=== PATIENT | male | born 1955 | race Caucasian/White ===

== ENCOUNTER 2016-09-18 19:17 | Inpatient (IN) ==
[2016-09-18] MEDS ORDERED: *HR* OxyCODONE/APAP 5/325 TABLET PO ONE ×3 (19:26→22:43)
--- NOTE | 2016-09-18 19:30 | Emergency Department Note ---
Disposition Clinical Impression: Fall (on) (from) other stairs and steps, initial encounter Tibia fracture Qualifiers: Encounter type: initial encounter Tibia location: shaft Fracture type: closed Fracture morphology: comminuted Fracture alignment: displaced Laterality: right Qualified Code(s): S82.251A - Displaced comminuted fracture of shaft of right tibia, initial encounter for closed fracture Closed fibular fracture Qualifiers: Encounter type: initial encounter Fibula location: proximal Fracture morphology : other fracture Laterality: right Qualified Code(s): S82.831A - Other fracture of upper and lower end of right fibula, initial encounter for closed fracture Disposition: Admitted As Inpatient Condition: Fair Time of Disposition: 21:02 Fall HPI - General Chief Complaint: ED Extremity Injury, Lower Stated Complaint: fell out of wheelchair Time Seen by Provider: 09/18/16 19:23 Source: EMS Nursing Notes Reviewed: Yes Vital Signs Reviewed: Yes - History of Present Illness HPI Narrative: Patient's 61-year-old male who presents to the ED secondary to fall 45 minutes ago. Patient states he rolled forward in his wheelchair fell out and hit his right proximal herrera on a step. Patient denies any head injury or injury anywhere else any loss of consciousness. Patient is brought in by EMS. Patient admits to allergies aspirin and Sudafed. Patient denies any anticoagulant use. Patient admits to history of diabetes and hypertension. Patient states pain right lower extremity 9 out of 10 and Constant. Patient has history of CVA 2 during surgery years ago which patient comatose for several months and suffered severe atrophy of bilateral lower extremities. Patient spends most this time bedbound and wheelchair. Patient is actively working with rehabilitation to gain use of legs. Currently able to ambulate with a walker to some degree with assistance. - Related Data Home Medications Medication Instructions Recorded Confirmed Ferrous Sulfate 325 mg PO BID 10/09/14 09/18/16 Omeprazole [PriLOSEC] 40 mg PO QAM 10/09/14 09/18/16 Simvastatin [Zocor] 40 mg PO QPM 10/09/14 09/18/16 Sucralfate [Carafate] 1 gm PO QID 10/09/14 09/18/16 Thiamine (B-1) [Vitamin B-1] 100 mg PO QAM 10/09/14 09/18/16 Zinc Sulfate 220 mg PO QAM 10/09/14 09/18/16 DULoxetine [Cymbalta] 20 mg PO DAILY 08/28/16 09/18/16 Insulin Glargine,Hum.rec.anlog 10 unit SQ HS 08/28/16 09/18/16 [Lantus Solostar] Insulin LISPRO [Humalog Kwikpen 0 unit SQ TIDWM PRN 08/28/16 09/18/16 U-100] Lactobacillus Acidophilus/Fos 1 each PO BID 08/28/16 09/18/16 [Acidophilus Probiotic Tablet] Lisinopril [Zestril] 10 mg PO BID 08/28/16 09/18/16 Loratadine [Claritin] 10 mg PO DAILY 08/28/16 09/18/16 Multivitamin [Multi-Day Vitamins] 1 each PO DAILY 08/28/16 09/18/16 hydrALAZINE [HydrALAZINE] 10 mg PO TID PRN 09/18/16 09/18/16 Previous Rx's Medication Instructions Recorded Magnesium Oxide [Mag-Ox] 400 mg PO BID #60 tablet 03/09/15 Mirtazapine [Remeron] 15 mg PO HS #30 tablet 03/09/15 Allergies Allergy/AdvReac Type Severity Reaction Status Date / Time aspirin Allergy Rash Verified 09/18/16 19:24 pseudoephedrine Allergy Rash Verified 09/18/16 19:24 [From [facility]] Review of Systems: She denies any headache, fever, chills, nausea, vomiting, pain anywhere else other than the lower right leg. Patient has known loss of sensation to bilateral lower extremities in the feet. All systems ED: reviewed and negative except as stated. Review of Systems: As Per HPI Fall PMH - Past Medical History Medical history: Reports: CVA, diabetes, hyperlipidemia, hypertension, other Surgical history: Reports: hip replacement, orthopedic, other, other Psychiatric history: Reports: depression, prior suicide attempt - Social History Smoking Status: Former smoker Alcohol use: Reports: none Drug use: Reports: none Physical Exam Vital Signs Temperature 98 F 09/18/16 19:19 Pulse Rate 76 09/18/16 19:19 Respiratory Rate 16 09/18/16 19:19 Blood Pressure 140/90 09/18/16 19:19 O2 Sat by Pulse Oximetry 95 07/31/17 19:19 Temperature 98 F 09/18/16 19:19 Pulse Rate 76 09/18/16 19:19 Respiratory Rate 16 09/18/16 19:19 Blood Pressure 140/90 09/18/16 19:19 O2 Sat by Pulse Oximetry 95 09/18/16 19:19 Oxygen Delivery Oxygen Delivery Room Air -General Appearance: Patient is a 61-year-old male. Thin but not cachectic. Patient alert and oriented 3 no acute distress. Patient's appears uncomfortable secondary to pain in the right lower extremity with evidence anterior hematoma on proximal tibia - Head Head exam: atraumatic, normocephalic, normal inspection - Eye Eye exam: Present: normal appearance, PERRL, EOMI, negative for scleral icterus negative for conjunctival pallor - ENT ENT exam: normal exam, normal oropharynx, mucous membranes moist - Neck Neck exam: Present: normal inspection, full ROM, trachea midline, negative JVD - Chest Chest inspection: Present: Patient has bilateral equal rise and fall of chest wall. Non-tender to palpation. - Respiratory Respiratory exam: Clear to auscultation bilaterally without wheezes rales or rhonchi Cardiovascular Cardiovascular exam: Present: regular rate, normal rhythm, normal heart sounds, without murmurs rubs or gallops. - Abdominal Exam Abdominal exam: Present: soft, nondistended, Non-Tender light and deep palpation in all quadrants. Bowel sounds normoactive throughout all 4 quadrants. Negative for hyper or hyperresonance. - Extremities Exam Extremities exam: Right lower extremity just distal to right knee anterior tibia shows a very large hematoma measuring 11.8 x 10.4 cm. Patient is unable to extend at the knee. Appears very painful with passive extension at the knee and dorsiflexion of the right foot. Distal pulses at dorsal pedal and posterior tibial equal and regular bilaterally - Back Exam Back exam: Present: normal inspection - Psychiatric Psychiatric exam: Present: normal affect, normal mood - Skin Skin exam: Present: warm, dry, intact, normal color. Minor abrasion to right great toe. - General General appearance: alert, in no apparent distress - Head Head exam: atraumatic, normocephalic, normal inspection Course - Reevaluation(s) Reevaluation #1: Patient seen and examined at bedside. Patient has a large hematoma just distal to right knee and anterior portion of his tibia. Secondary to fall. X-ray of area in question ordered. Percocet for pain. We will reassess. Patient's family member states the patient is a brittle diabetic and asked to monitor blood sugar. The POC glucose ordered Time: 19:30 Reevaluation #2: Patient's pain currently 6 out of 10. Ordered another dose of 5 325 Percocet. Ice is been applied. Time: 20:20 Reevaluation #3: Percocet 5 325 ordered for pain Time: 22:57 - Consultations Consultation #1: Dr. Polo of [facility] states the place up at a knee immobilizer and ice. Discussed with plan for admission secondary to concerns of injury leading to compartment syndrome. Dr. Polo agrees and still wants to a knee immobilizer and ice. He states he will see the patient tomorrow morning Time: 20:18 Consultation #2: Dr. Carol Garland my attending had a discussion with the nursing staff at the [facility] who states that they will be able to perform the necessary checks of the patient's leg with our concerns for possible injury leading to compartment syndrome. Time: 20:51 Vital Signs Temperature 98 F 09/18/16 19:19 Pulse Rate 76 09/18/16 19:19 Respiratory Rate 16 09/18/16 19:19 Blood Pressure 140/90 09/18/16 19:19 O2 Sat by Pulse Oximetry 95 09/18/16 19:19 Temperature 98.3 F 09/18/16 23:29 Pulse Rate 74 09/18/16 23:29 Respiratory Rate 16 09/18/16 23:29 Blood Pressure 124/76 09/18/16 23:29 O2 Sat by Pulse Oximetry 95 09/18/16 23:29 Oxygen Delivery Oxygen Delivery Room Air Fall - [facility] Narrative Medical decision making narrative: Patient is a 61-year-old male with a past medical history for CVA secondary to surgery and is currently wheelchair bound. Patient states that he rolled down 2 steps in his wheelchair fell out of his wheelchair and hit his right tibia on the step. Patient does not have any identifiable wounds or signs of trauma anywhere else outside of the right lower extremity which shows a large hematoma measuring 11.6 x 10.4 cm. Family member states that at time just after the incident the hematoma measured approximately size of a quarter. That was 45 minutes ago. Patient states his pain is 9 out of 10 and Percocet was ordered. The patient denies any anticoagulant use I reviewed patient's x-rays at bedside which shows a closed comminuted angulated fracture of the proximal tibia and fibula. Formal read concurs with this. Dr. Galeas of orthopedics was consulted and I discussed concerns for compartment syndrome and the need for admittance for monitoring. Dr. Polo agrees and concurs and requests padded knee immobilizer and ice application. This has been initiated already. Patient will be seen by or so tomorrow. Of note patient has history of brittle diabetes and recommend patient's glucose be monitored closely Patient has been accepted for admission - Medical Records Medical records reviewed: Yes I reviewed the patient's medical records. - Radiology Data Radiology results reviewed: Yes I reviewed the patient's radiology results. Knee X-Ray 09/18/16 19:24 IMPRESSION: Acute, comminuted fracture of the proximal tibial diametaphysis. There is an equivocal intra-articular component to the tibial spines. Acute fibular neck fracture. Lateral genicular calcification, these are most likely degenerative or remote posttraumatic. However given the mechanism, Segund fracture is considered. Correlation for anterior cruciate ligament injury is suggested. D/ / Damion Becerra MD / Damion Becerra MD Interpreting Provider: Damion Becerra MD Tibia/Fibula X-Ray 09/18/16 19:24 IMPRESSION: Acute, comminuted fracture of the proximal tibial diametaphysis. There is an equivocal intra-articular component to the tibial spines. Acute fibular neck fracture. Lateral genicular calcification, these are most likely degenerative or remote posttraumatic. However given the mechanism, Segund fracture is considered. Correlation for anterior cruciate ligament injury is suggested. D/ / Damion Becerra MD / Damion Becerra MD Interpreting Provider: Damion Becerra MD Attestation Statement - Attestation Attestation: I examined this patient and my medical decision-making was reviewed with the Resident Physician. I agree with the documented findings, disposition and treatment plan as described except to the extent set forth below. Patient fell down one stair from wheelchair, isolated right knee injury. Significant anterior swelling. Angulated fracture through the tibial shaft just distal to the tibial tuberosity. No palpable defect of the patellar tendon. Patient cannot extend his knee, but this seems more related to pain and to a quadriceps tendon rupture. The patient does not currently have compartment syndrome, but given the level of swelling and the location of the injury on concern for the possible development of a compartment syndrome. I spoke with the orthopedic physician as well as with the house nursing supervisor in charge. The patient will be admitted for compartment checks, which the warehouse associate driver assures me are customarily completed by the nursing staff on the floor.
[2016-09-18] MEDS ORDERED: Acetaminophen 325 MG TABLET PO PRN (23:30)
[2016-09-18] MEDS ORDERED: Naloxone 0.4 MG/ML INJ IVP PRN (23:30)
[2016-09-18] MEDS ORDERED: *HR* HYDROcodone/Acet 5/325 mg TABLET PO PRN (23:30)
[2016-09-18] MEDS ORDERED: Ondansetron 4 MG/2 ML VIAL IVP PRN (23:30)
[2016-09-18] MEDS ORDERED: *HR* Dextrose 50 % in Water (Syg) 50 ML SYRINGE IVP PRN (23:31)
[2016-09-18] MEDS ORDERED: Dextrose Gel 15 GM PO PRN ×2 (23:31)
[2016-09-18] MEDS ORDERED: D5% in Water 1,000 ML IVC PRN (23:31)
--- NOTE | 2016-09-18 23:43 | Internal Med History&Physical ---
<Triston Cheung - Last Filed: 09/19/16 00:30> Date of Encounter: 09/19/16 Time of Encounter: 23:00 Assessment and Plan (1) Tibia fracture Current visit: Yes Status: Acute - Right knee, tibia/fibula X-ray found acute, comminuted fracture of the proximal tibial diametaphysis and acute fibular neck fracture. - Secondary to fall. - Orthopedic surgery on board and Dr. Polo will see patient tomorrow morning. Will keep patient NPO for possible surgery. - Continue knee immobilizer and ice. - Opioid pain medication prn for pain control. - Closely monitor given the concern of potential compartment syndrome. Qualifiers: Encounter type: initial encounter Tibia location: shaft Fracture type: closed Fracture morphology: comminuted Fracture alignment: displaced Laterality: right Qualified Code(s): S82.251A - Displaced comminuted fracture of shaft of right tibia, initial encounter for closed fracture (2) Closed fibular fracture Current visit: Yes Status: Acute - see above. Qualifiers: Encounter type: initial encounter Fibula location: proximal Fracture morphology: other fracture Laterality: right Qualified Code(s): S82.831A - Other fracture of upper and lower end of right fibula, initial encounter for closed fracture (3) UTI (urinary tract infection) Current visit: No Status: Acute - Symptomatic recurrent UTI. - Urine culture from 08/28/16 grew Enterobacter cloacae resistant to ceftriaxone and intermediate to ciprofloxacin and nitrofurantoin. It's sensitive to cefepime and levofloxacin. - Will start IV levofloxacin ( 500 mg IV loading dose now and then 250 mg q24H). Qualifiers: Urinary tract infection type: acute cystitis Hematuria presence: with hematuria Qualified Code(s): N30.01 - Acute cystitis with hematuria (4) Diabetes Current visit: No Status: Chronic - Insulin sliding scale with low-dose correction every 4 hours given patient is NPO for potential surgery tomorrow. Qualifiers: Diabetes mellitus type: type 2 Diabetes mellitus complication status: with neurologic complications Diabetes mellitus complication detail: with polyneuropathy Diabetes mellitus computer terminal operator insulin use: with computer terminal operator use Qualified Code(s): E11.42 - Type 2 diabetes mellitus with diabetic polyneuropathy; Z79.4 - correction (current) use of insulin (5) HTN (hypertension) Current visit: No Status: Chronic - BP 124/76. - Hold home BP medications at this time. - Continue to monitor. Qualifiers: Hypertension type: essential hypertension Qualified Code(s): I10 - Essential (primary) hypertension (6) CKD (chronic kidney disease) stage 3, GFR 30-59 ml/min Current visit: Yes Status: Chronic Internal Medicine - H&P: HPI Chief complaint: Right lower extremity pain and swelling Admitted From: Emergency Dept Plans for Post Hospital Care: Home History of present illness: Mr. Neal is a 61 year old male with diabetic neuropathy, HTN, HLD and history of CVA x2 after hip and shoulder surgeries. Patient presented with complaint of right lower extremity pain and swelling after a fall from wheelchair with his right herrera landing on a step. Patient denies hitting other part of body or loss of consciousness. Patient's recreational facilities motel manager noticed that the swelling was increasing in size and patient was brought to [place] ED via EMS. Patient has chronic numbness/tingling of bilateral lower extremities and denies any change since the event. Patient is not on any known blood thinner and denies easily bleeding or bruise. Patient also reports dysuria from recurrent UTI and his PCP just prescribed 10-day course of Cefdinir starting 09/17/16. Patient denies fever, chills, nausea, vomiting and his mental status is at his baseline at this time per patient recreational facilities motel manager at bedside. In ED, right knee, tibia/fibula X-ray found acute, comminuted fracture of the proximal tibial diametaphysis and acute fibular neck fracture. ED physician discussed the case with Dr. Polo of [place] orthopedic surgery who recommends knee immobilizer & ice and will see patient tomorrow. Hospitalization was also recommended for the concern of potential compartment syndrome. Past Med Surg Social Fam HX - Past Medical History Medical history: CVA, diabetes, hyperlipidemia, hypertension, other Psychiatric history: depression, prior suicide attempt - Past Surgical History Surgical History: hip replacement, orthopedic, other, other - Social History Smoking Status: Former smoker Smokeless Tobacco Status: No Alcohol use: none Drug use: none - Family History Mother Living Status: Still Living Hx Family Cardiac Disorders: Yes (A-fib s/p pacemaker) Hx Family Endocrine Disorder: Yes (DM) Father Living Status: Hx Family Cardiac Disorders: Yes (heart disease) Brother Living Status: Hx Family Cardiac Disorders: Yes (CO) Hx Family Endocrine Disorder: Yes (DM) Internal Medicine - H&P: Meds Ferrous Sulfate 325 mg PO BID 10/09/14 [History] Omeprazole [PriLOSEC] 40 mg PO QAM 10/09/14 [History] Simvastatin [Zocor] 40 mg PO QPM 10/09/14 [History] Sucralfate [Carafate] 1 gm PO QID 10/09/14 [History] Thiamine (B-1) [Vitamin B-1] 100 mg PO QAM 10/09/14 [History] Zinc Sulfate 220 mg PO QAM 10/09/14 [History] Magnesium Oxide [Mag-Ox] 400 mg PO BID #60 tablet 03/09/15 [Rx] Mirtazapine [Remeron] 15 mg PO HS #30 tablet 03/09/15 [Rx] DULoxetine [Cymbalta] 20 mg PO DAILY 08/28/16 [History] Insulin Glargine,Hum.rec.anlog [Lantus Solostar] 10 unit SQ HS 08/28/16 [History ] Insulin LISPRO [Humalog Kwikpen U-100] 0 unit SQ TIDWM PRN 08/28/16 [History] Lactobacillus Acidophilus/Fos [Acidophilus Probiotic Tablet] 1 each PO BID 08/28 [History] Lisinopril [Zestril] 10 mg PO BID 08/28/16 [History] Loratadine [Claritin] 10 mg PO DAILY 08/28/16 [History] Multivitamin [Multi-Day Vitamins] 1 each PO DAILY 08/28/16 [History] hydrALAZINE [HydrALAZINE] 10 mg PO TID PRN 09/18/16 [History] Allergies aspirin Allergy (Verified 09/18/16 19:24) Rash pseudoephedrine [From Sudafed] Allergy (Verified 09/18/16 19:24) Rash All Systems PM: A 10-system review of systems was performed and is negative for pertinent findings except as documented above in the HPI. - Constitutional Constitutional: no anorexia, no chills, no fever(s) - EENT Eyes: no change in vision Ears: no decreased hearing Nose, mouth and throat: no dysphagia, no odynophagia - Cardiovascular Cardiovascular ROS IM: no chest pain, no lightheadedness, no syncope - Respiratory Respiratory: no cough, no dyspnea, no hemoptysis - Gastrointestinal Gastrointestinal: no abdominal pain, no nausea, no vomiting - Genitourinary Genitourinary ROS male: dysuria, no hematuria - Musculoskeletal Musculoskeletal ROS IM: as per HPI - Integumentary Integumentary IM: no pruritus, no rash - Neurological Neurological ROS: numbness (Chronic), tingling (Chronic), no focal weakness - Hematologic/Lymphatic Hematologic/Lymphatic: no easy bleeding, no easy bruising - Constitutional Vitals: Temp Pulse Resp BP Pulse Ox 98.3 F 74 16 124/76 95 09/18/16 23:29 09/18/16 23:29 09/18/16 23:29 09/18/16 23:29 09/18/16 23:29 General appearance: Present: cooperative, A&O X 3, answers questions appropriately - Head Head exam: Present: atraumatic, normocephalic - Eye Eye exam: Present: EOMI, PERRL, conjuntiva pink, sclera anicteric - Neck Neck exam general surgery: Present: supple, trachea midline. Absent: lymphadenopathy - Respiratory Respiratory exam: Present: CTAB. Absent: accessory muscle use, rales, rhonchi, wheezes - Cardiovascular Cardiovascular exam: Present: RRR, +S1, +S2. Absent: diastolic murmur, gallop, rubs, systolic murmur - GI/Abdominal GI/Abdominal exam: Present: normal bowel sounds, soft, no peritoneal signs. Absent: distended, tenderness - Extremities Exam Extremities exam: Present: warm, radial pulses palpable and symetrical. Absent : pedal edema Additional comments: Right lower extremity in knee brace with ice. Some swelling distal to right knee noted. Dorsalis pedis pulses palpable and symmetrical. Patient is able to wiggle his toes bilaterally. - Neurological Exam Neurological exam: Present: CN II-XII intact, oriented X3, no focal deficits. Absent: pronater drift, facial droop, speech deficit - Skin Skin exam: Present: dry, intact, warm Internal Med - H&P Results - Labs CBC & Chem 7: 09/19/16 00:02 <Zack Barraza - Last Filed: 09/19/16 01:00> Date of Encounter: 09/19/16 Internal Medicine - H&P: HPI History of present illness: Mr. Neal is a 61 year old male All Systems PM: A 10-system review of systems was performed and is negative for pertinent findings except as documented above in the HPI. - Constitutional Vitals: Temp Pulse Resp BP Pulse Ox 98.3 F 74 16 124/76 95 09/18/16 23:29 09/18/16 23:29 09/18/16 23:29 09/18/16 23:29 09/18/16 23:29 Internal Med - H&P Results - Labs CBC & Chem 7: 09/19/16 00:02 09/19/16 00:02 Labs: Short CBC 09/19/16 Range/Units 00:02 WBC 15.0 H (4.3-11.1) K/mcL Hgb 11.9 L (12.9-16.9) g/dL Hct 36.8 L (37.5-50.1) % Plt Count 283 (140-400) K/mcL Neutrophils # 12.4 H (1.6-8.9) K/mcL BMP 09/19/16 00:02 Sodium 141 Potassium 4.0 Chloride 106 Carbon Dioxide 28 BUN 30 H Creatinine 1.84 H Glucose 182 H Calcium 10.0 - Attending Attestation I examined this patient and my medical decision-making was reviewed with the Resident Physician. I agree with the documented findings, disposition and treatment plan as described except to the extent set forth below. 61 yo male with hx of CVA, brittle DMII who presents with acute fall from wheelchair leading to a comminuted fracture of right proximal tibia. He lives at home and is dependent on nursing care at home since his CVA and is wheelchair dependent. He was attempting to get out of his wheelchair too quickly which caused the mechanical accident leading to fracture. ROS 14 point review of systems reviewed as best as possible given presentation. Pertinent positive or negative as per HPI or otherwise reviewed as negative General - AAO x 3 Psych - Appropriate affect/speech. No agitation Eyes - DEISY. Eye lids intact. No scleral icterus ENT - Oral mucosa pink, dentition intact. External ear clear/dry/intact. No thyromegaly Lymphatics - No cervical/inguinal lympadenopathy Heart - Sinus. RRR. S1 and S2 present. No added HS/murmurs appreciated. No elevated JVD appreciated. No calf swellings/erythema Lung - Adequate air entry b/l, No crackes/wheezes appreciated GI - Soft, non-tender. No hepatosplenomegaly/ascities. BS+ - No CVA/suprapubic tenderness or palpable bladder distension Skin - Intact. No rash/petechiae/ecchymosis. Warm extremities MSK - right leg in a brace. No neurovascular compromised noted XR reviewed by self A/P Comminuted fracture of right proximal tibia - pain control with IV morphine, tramadol - NPO after midnight - ortho consult for operative eval in the morning Brittle DMII on insulin - continue ISS - lantus UTI - was started on cefdinir at home - based upon prior sensitivity, start IV levaquin in hospital CVA
[2016-09-19] MEDS: *HR* Morphine 2 MG/ML SYRINGE IVP PRN ×2 (00:06→05:41)
[2016-09-19] MEDS ORDERED: Levofloxacin 500 MG/100 ML 500 MG/100 ML BAG IVPB ONE (00:08)
[2016-09-19] MEDS: Insulin LISPRO 300 UNITS/3 ML VIAL SQ SCH ×4 (00:10→12:46)
[2016-09-19 00:22] LABS: Basophils # 0.1 K/mcL (0.0-0.2); Basophils % 0.5 %; Eosinophils # 0.2 K/mcL (0.0-0.6); Eosinophils % 1.6 %; Hematocrit 36.8 % (37.5-50.1); Hemoglobin 11.9 g/dL (12.9-16.9); Immature Granulocytes % 0.5 % (0-4); Lymphocytes # 1.4 K/mcL (0.6-4.6); Lymphocytes % 9.4 %; Mean Corpuscular HGB Conc 32.3 g/dL (31.6-35.5); Mean Corpuscular Hemoglobin 29.4 pg (28.0-33.3); Mean Corpuscular Volume 90.9 fL (83.0-100.0); Mean Platelet Volume 10.1 fL (9.4-12.4); Monocytes # 0.9 K/mcL (0.0-1.3); Monocytes % 5.9 %; Neutrophils # 12.4 K/mcL (1.6-8.9); Platelet Count 283 K/mcL (140-400); Red Blood Count 4.05 M/mcL (4.19-5.50); Red Cell Distribution Width 13.6 % (11.5-14.5); Segmented Neutrophils % 82.1 %
[2016-09-19 00:29] LABS: Prothrombin Time 10.6 Seconds (9.4-12.1)
[2016-09-19 00:31] LABS: Activated Partial Thrombo Time 32.9 Seconds (26.0-36.0)
[2016-09-19] MEDS ORDERED: Ringers Solution, Lactated 1,000 ML IVC SCH (00:45)
[2016-09-19 03:26] LABS: Basophils # 0.1 K/mcL (0.0-0.2); Basophils % 0.4 %; Eosinophils # 0.1 K/mcL (0.0-0.6); Hemoglobin 10.5 g/dL (12.9-16.9); Immature Granulocytes % 0.5 % (0-4); Lymphocytes # 1.2 K/mcL (0.6-4.6); Lymphocytes % 9.7 %; Mean Corpuscular HGB Conc 31.8 g/dL (31.6-35.5); Mean Corpuscular Hemoglobin 29.1 pg (28.0-33.3); Mean Corpuscular Volume 91.4 fL (83.0-100.0); Mean Platelet Volume 10.2 fL (9.4-12.4); Monocytes # 0.8 K/mcL (0.0-1.3); Monocytes % 6.2 %; Neutrophils # 10.6 K/mcL (1.6-8.9); Platelet Count 252 K/mcL (140-400); Red Blood Count 3.61 M/mcL (4.19-5.50); Red Cell Distribution Width 13.5 % (11.5-14.5); Segmented Neutrophils % 82.2 %
[2016-09-19 03:42] LABS: Calcium 9.6 mg/dL (8.6-10.8); Potassium 4.1 mEq/L (3.5-4.5)
[2016-09-19] MEDS ORDERED: *HR* Enoxaparin 40 MG/0.4 ML SYRINGE SQ SCH (06:00)
[2016-09-19] MEDS ORDERED: *HR* FentaNYL (PF) 100 MCG/2 ML VIAL ONE (08:24)
[2016-09-19] MEDS ORDERED: Lidocaine -MPF 2% 2 ML VIAL ONE (08:24)
[2016-09-19] MEDS ORDERED: Dexamethasone 4 MG/ML VIAL ONE (08:24)
[2016-09-19] MEDS ORDERED: Ondansetron 4 MG/2 ML VIAL ONE (08:24)
[2016-09-19] MEDS ORDERED: EPHEDrine 50 MG/ML VIAL ONE (08:24)
[2016-09-19] MEDS ORDERED: *HR* Midazolam HCl 2 MG/2 ML VIAL ONE (08:24)
[2016-09-19] MEDS ORDERED: *HR* Propofol 200 MG/20 ML VIAL IVP ONE (08:24)
[2016-09-19 11:29] VITALS: BP 99/63
--- NOTE | 2016-09-19 11:35 | Orthopedic Consult Note ---
Date of Encounter: 09/19/16 Time of Encounter: 09:00 Assessment and Plan (1) Tibia fracture Current Visit: Yes Status: Acute Fracture is non-operative at this time. Compartments soft. NWB Continue in knee immobilizer wearing at all times even while sleeping. Continue to ice and elevate. Follow up in [place] office with sports med this week. Qualifiers: Encounter type: initial encounter Tibia location: shaft Fracture type: closed Fracture morphology: comminuted Fracture alignment: displaced Laterality: right Qualified Code(s): S82.251A - Displaced comminuted fracture of shaft of right tibia, initial encounter for closed fracture (2) Closed fibular fracture Current Visit: Yes Status: Acute same as above Qualifiers: Encounter type: initial encounter Fibula location: proximal Fracture morphology: other fracture Laterality: right Qualified Code(s): S82.831A - Other fracture of upper and lower end of right fibula, initial encounter for closed fracture History of Present Illness Chief complaint: right knee pain HPI: Mr. Neal is a 61 year old male who presented to ER yesterday with right knee pain after fall. He was in his wheelchair when he accidentally when down a step , fell out of the wheelchair and the right knee landed directly on edge of step. States he had instant pain in the knee radiating down leg which was shooting and constant but is now well controlled with pain medication and described as aching 1/10 pain in knee only. He has chronic numbness/ neuropathy in lower extremities, no new or increased numbness since fall. Denies hitting head or LOC. Patient does not ambulate well since his 2 previous strokes and is typically in a wheelchair, he does have chronic contracture to bilateral lower extremities as well. Denies chest pain, SOB, fever. Past Med Surg Social Fam HX - Past Medical History Medical history: CVA, diabetes, hyperlipidemia, hypertension, other Psychiatric history: depression, prior suicide attempt - Past Surgical History Surgical History: hip replacement, orthopedic, other, other - Social History Smoking Status: Former smoker Smokeless Tobacco Status: No Alcohol use: none Drug use: none - Family History Mother Living Status: Still Living Hx Family Cardiac Disorders: Yes (A-fib s/p pacemaker) Hx Family Endocrine Disorder: Yes (DM) Father Living Status: Age at : 65 Cause of : ME Hx Family Cardiac Disorders: Yes (heart disease) Hx Family Respiratory Disorders: No Hx Family Cancer: No Hx Family GI Disorders: No Hx Family Genitourinary Disorders: No Hx Family Endocrine Disorder: No Hx Family Musculoskeletal Disorders: No Hx Family Neuromuscular Disorders: No Hx Family Neurologic Disorders: No Hx Family HEENT Disorders: No Hx Family Autoimmune Disorders: No Hx Family Reproductive Disorders: No Hx Family Psychosocial Disorders: No Hx Family Medical Disorders: No Brother Living Status: Hx Family Cardiac Disorders: Yes (ME) Hx Family Endocrine Disorder: Yes (DM) Medications and Allergies Ferrous Sulfate 325 mg PO BID 10/09/14 [History] Omeprazole [PriLOSEC] 40 mg PO QAM 10/09/14 [History] Simvastatin [Zocor] 40 mg PO QPM 10/09/14 [History] Sucralfate [Carafate] 1 gm PO QID 10/09/14 [History] Thiamine (B-1) [Vitamin B-1] 100 mg PO QAM 10/09/14 [History] Zinc Sulfate 220 mg PO QAM 10/09/14 [History] Magnesium Oxide [Mag-Ox] 400 mg PO BID #60 tablet 03/09/15 [Rx] Mirtazapine [Remeron] 15 mg PO HS #30 tablet 03/09/15 [Rx] DULoxetine [Cymbalta] 20 mg PO DAILY 08/28/16 [History] Insulin Glargine,Hum.rec.anlog [Lantus Solostar] 10 unit SQ HS 08/28/16 [History ] Insulin LISPRO [Humalog Kwikpen U-100] 0 unit SQ TIDWM PRN 08/28/16 [History] Lactobacillus Acidophilus/Fos [Acidophilus Probiotic Tablet] 1 each PO BID 08/28 [History] Lisinopril [Zestril] 10 mg PO BID 08/28/16 [History] Loratadine [Claritin] 10 mg PO DAILY 08/28/16 [History] Multivitamin [Multi-Day Vitamins] 1 each PO DAILY 08/28/16 [History] hydrALAZINE [HydrALAZINE] 10 mg PO TID PRN 09/18/16 [History] Enoxaparin [Lovenox] 30 mg SQ DAILY #14 syr 09/19/16 [Rx] HYDROcodone/Acet 5/325 mg [[place] 5-325 mg] 1 tab PO Q6H PRN #20 tab 09/19/16 [Rx ] Allergies aspirin Allergy (Verified 09/18/16 19:24) Rash pseudoephedrine [From Sudafed] Allergy (Verified 09/18/16 19:24) Rash All Systems Reviewed: A 10-system review of systems was performed and is negative for pertinent findings except as documented above in the HPI. - Constitutional Constitutional: as per HPI - Cardiovascular Cardiovascular: as per HPI - Respiratory Respiratory: as per HPI - Musculoskeletal Musculoskeletal: as per HPI Physical Exam - Constitutional Vitals: Temp Pulse Resp BP Pulse Ox 99 F 75 15 99/63 99 09/19/16 11:27 09/19/16 11:27 09/19/16 11:27 09/19/16 11:27 09/19/16 11:27 - Knee right Appearance: ecchymosis (mild ecchymosis noted to anterior knee, no erythema, moderate swelling, moderate tenderness to palpation of knee, compartments soft to palpation, no calf pain, ROM of knee restricted, good dorsiflexion of foot. brisk cap refill, diminished sensation to foot) Results - Labs Result Diagrams: 09/19/16 02:51 09/19/16 02:51 Labs: Abnormal lab results WBC 12.8 K/mcL (4.3-11.1) H 09/19/16 02:51 RBC 3.61 M/mcL (4.19-5.50) L 09/19/16 02:51 Hgb 10.5 g/dL (12.9-16.9) L 09/19/16 02:51 Hct 33.0 % (37.5-50.1) L 09/19/16 02:51 Neutrophils # 10.6 K/mcL (1.6-8.9) H 09/19/16 02:51 BUN 32 mg/dL (8-26) H 09/19/16 02:51 Creatinine 2.00 mg/dL (0.72-1.25) H 09/19/16 02:51 Est GFR ( Amer) 42 (> 60) L 09/19/16 02:51 Est GFR (Non-Af Amer) 34 (> 60) L 09/19/16 02:51 Glucose 267 mg/dL (70-99) H 09/19/16 02:51 POC Glucose 185 (58-89) H 09/18/16 23:57 Calculated Osmolality 308 (280-300) H 09/19/16 02:51 H & H 09/19/16 Range/Units 02:51 Hgb 10.5 L (12.9-16.9) g/dL Hct 33.0 L (37.5-50.1) % All other labs normal. - Diagnostic results Knee x-ray: report reviewed, image reviewed Consult Discharge Plan - Plan Instructions: Hydrocodone/Acetaminophen (By mouth), Leg Fracture (DC), Diabetes Mellitus Type 2 in Adults (DC) Referrals: Davy Wright MD [Partnered Physician] - 10/22/16 8:40 am Cecil Carter MD [Primary Care Provider] - Prescriptions: Enoxaparin [Lovenox] 30 mg SQ DAILY #14 syr HYDROcodone/Acet 5/325 mg [[place] 5-325 mg] 1 tab PO Q6H PRN #20 tab PRN Reason: Moderate Pain (4-6) - Attending Attestation case and plan of care discussed with supervising physician who was available for all aspects of care.
--- NOTE | 2016-09-19 12:30 | Discharge Summary ---
Date of Encounter: 09/19/16 Time of Encounter: 12:28 - Discharge Diagnosis (1) Tibia fracture Priority: Primary Status: Acute Qualifiers: Encounter type: initial encounter Tibia location: shaft Fracture type: closed Fracture morphology: comminuted Fracture alignment: displaced Laterality: right Qualified Code(s): S82.251A - Displaced comminuted fracture of shaft of right tibia, initial encounter for closed fracture (2) Closed fibular fracture Priority: Primary Status: Acute Qualifiers: Encounter type: initial encounter Fibula location: proximal Fracture morphology: other fracture Laterality: right Qualified Code(s): S82.831A - Other fracture of upper and lower end of right fibula, initial encounter for closed fracture (3) CKD (chronic kidney disease) stage 3, GFR 30-59 ml/min Priority: Secondary Status: Chronic (4) Depression Priority: Secondary Status: Chronic Qualifiers: Depression Type: major depressive disorder Major depression recurrence: recurrent Active/Remission status: currently active Major depression episode severity: severe Qualified Code(s): F33.2 - Major depressive disorder , recurrent severe without psychotic features (5) Diabetes Priority: Secondary Status: Acute Qualifiers: Qualified Code(s): E11.9 - Type 2 diabetes mellitus without complications (6) UTI (urinary tract infection) Priority: Secondary Status: Acute Comments: Recommend to finish his home abx Cefitin course Qualifiers: Urinary tract infection type: acute cystitis Hematuria presence: with hematuria Qualified Code(s): N30.01 - Acute cystitis with hematuria (7) HTN (hypertension) Priority: Secondary Status: Chronic Qualifiers: Hypertension type: essential hypertension Qualified Code(s): I10 - Essential (primary) hypertension (8) DVT prophylaxis Priority: Secondary Status: Acute - Discharge Medications Prescriptions: Enoxaparin [Lovenox] 30 mg SQ DAILY #14 syr HYDROcodone/Acet 5/325 mg [[place] 5-325 mg] 1 tab PO Q6H PRN #20 tab PRN Reason: Moderate Pain (4-6) Home Medications: Ferrous Sulfate 325 mg PO BID 10/09/14 [History] Omeprazole [PriLOSEC] 40 mg PO QAM 10/09/14 [History] Simvastatin [Zocor] 40 mg PO QPM 10/09/14 [History] Sucralfate [Carafate] 1 gm PO QID 08/21/15 [History] Thiamine (B-1) [Vitamin B-1] 100 mg PO QAM 10/09/14 [History] Zinc Sulfate 220 mg PO QAM 10/09/14 [History] Magnesium Oxide [Mag-Ox] 400 mg PO BID #60 tablet 03/09/15 [Rx] Mirtazapine [Remeron] 15 mg PO HS #30 tablet 03/09/15 [Rx] DULoxetine [Cymbalta] 20 mg PO DAILY 08/28/16 [History] Insulin Glargine,Hum.rec.anlog [Lantus Solostar] 10 unit SQ HS 08/28/16 [History ] Insulin LISPRO [Humalog Kwikpen U-100] 0 unit SQ TIDWM PRN 08/28/16 [History] Lactobacillus Acidophilus/Fos [Acidophilus Probiotic Tablet] 1 each PO BID 08/28 [History] Lisinopril [Zestril] 10 mg PO BID 08/28/16 [History] Loratadine [Claritin] 10 mg PO DAILY 08/28/16 [History] Multivitamin [Multi-Day Vitamins] 1 each PO DAILY 08/28/16 [History] hydrALAZINE [HydrALAZINE] 10 mg PO TID PRN 09/18/16 [History] Enoxaparin [Lovenox] 30 mg SQ DAILY #14 syr 09/19/16 [Rx] HYDROcodone/Acet 5/325 mg [[place] 5-325 mg] 1 tab PO Q6H PRN #20 tab 09/19/16 [Rx ] Allergies/Adverse Reactions: Allergies aspirin Allergy (Verified 09/18/16 19:24) Rash pseudoephedrine [From Sudafed] Allergy (Verified 09/18/16 19:24) Rash Date of admission: 09/19/16 00:30 Primary care physician: Cecil Carter MD Consults: 09/19/16 12:20 Consult to Assistant Site Manager [CONS] Routine Reason for SW Consult: home health Anticipated date of discharge: 09/19/16 - Patient Status Disposition: Home Health Service Condition: Fair Functional capacity at discharge: wheelchair bound Overall status at discharge: patient is back to baseline - Discharge Instructions Follow Up With: Cecil Carter MD [Primary Care Provider] - - Diet and Activity Activity: other (NWB in Rt leg) Diet: advance to your usual diet Hospital course: Mr. Neal is a 61 year old male with diabetic neuropathy, HTN, HLD and history of CVA x2 after hip and shoulder surgeries. Patient presented with complaint of right lower extremity pain and swelling after a fall from wheelchair with his right herrera landing on a step. Patient denies hitting other part of body or loss of consciousness. Patient's wax pattern repairer noticed that the swelling was increasing in size and patient was brought to [facility] via EMS. Patient is not on any known blood thinner and denies easily bleeding or bruise. In ED, right knee, tibia/fibula X-ray found acute, comminuted fracture of the proximal tibial diametaphysis and acute fibular neck fracture. Pt was evaluated by Ortho today, who recommend Knee mobilizer and NWB in Rt leg and out pt f/u with them closely. Ortho stated it does not look like a compartment syndrome, they cleared from their standpoint to d/c home. Made an out pt f/u appointment in AM. Patient also reports dysuria from recurrent UTI and his PCP just prescribed 10- day course of Cefdinir starting 09/17/16. Patient denies fever, chills, nausea, vomiting and his mental status is at his baseline at this time per patient wax pattern repairer at bedside. Recommend to finish his PO 10 days abx course. Will d/c him home today in stable condition. for DVT prophylaxis placed him on SQ Lovenox 30mg daily injections - Time Spent with Patient Total time spent providing and/or coordinating discharge services: - Constitutional Vitals: Temp Pulse Resp BP Pulse Ox 99 F 75 15 99/63 99 09/19/16 11:27 09/19/16 11:27 09/19/16 11:27 09/19/16 11:27 09/19/16 11:27 General appearance: Present: cooperative, A&O X 3, answers questions appropriately - Head Head exam: Present: atraumatic, normal inspection - Neck Neck exam general surgery: Present: normal inspection, thyromegaly, supple. Absent: lymphadenopathy, tenderness - Respiratory Respiratory exam: Present: decreased breath sounds. Absent: rales, respiratory distress, rhonchi, wheezes - Cardiovascular Cardiovascular exam: Present: RRR, +S1, +S2. Absent: diastolic murmur, gallop, rubs, systolic murmur - GI/Abdominal GI/Abdominal exam: Present: soft. Absent: rebound, rigid, tenderness - Extremities Exam Additional comments: mild to moderate swelling over Rt knee and below the knee area. No induration / no signs of compartment syndrome noticed. mild tenderness +, pulses are palpable. No loss of sensation - Psychiatric Psychiatric exam: Present: normal affect, normal mood
--- NOTE | 2016-09-19 12:39 | Physician Discharge Referral ---
Home Health/Hosp Referral Info Transfer to: Home Health Provider in Charge Post Discharge: PCP - Diagnosis (1) Tibia fracture Status: Acute (2) Closed fibular fracture Status: Acute (3) CKD (chronic kidney disease) stage 3, GFR 30-59 ml/min Status: Chronic (4) Depression Status: Chronic (5) Diabetes Status: Acute (6) UTI (urinary tract infection) Status: Acute (7) HTN (hypertension) Status: Chronic (8) DVT prophylaxis Status: Acute - Respiratory Orders Smoking Cessation: Smoking cessation has been advised. For more information, call the [place] Tobacco Quit Line at 6-243-AUYO-NOW. - Transfer Medications Prescriptions: Enoxaparin [Lovenox] 30 mg SQ DAILY #14 syr HYDROcodone/Acet 5/325 mg [[place] 5-325 mg] 1 tab PO Q6H PRN #20 tab PRN Reason: Moderate Pain (4-6) Home Medications: Ferrous Sulfate 325 mg PO BID 10/09/14 [History] Omeprazole [PriLOSEC] 40 mg PO QAM 10/09/14 [History] Simvastatin [Zocor] 40 mg PO QPM 10/09/14 [History] Sucralfate [Carafate] 1 gm PO QID 10/09/14 [History] Thiamine (B-1) [Vitamin B-1] 100 mg PO QAM 10/09/14 [History] Zinc Sulfate 220 mg PO QAM 10/09/14 [History] Magnesium Oxide [Mag-Ox] 400 mg PO BID #60 tablet 03/09/15 [Rx] Mirtazapine [Remeron] 15 mg PO HS #30 tablet 03/09/15 [Rx] DULoxetine [Cymbalta] 20 mg PO DAILY 08/28/16 [History] Insulin Glargine,Hum.rec.anlog [Lantus Solostar] 10 unit SQ HS 08/28/16 [History ] Insulin LISPRO [Humalog Kwikpen U-100] 0 unit SQ TIDWM PRN 08/28/16 [History] Lactobacillus Acidophilus/Fos [Acidophilus Probiotic Tablet] 1 each PO BID 08/28 [History] Lisinopril [Zestril] 10 mg PO BID 08/28/16 [History] Loratadine [Claritin] 10 mg PO DAILY 08/28/16 [History] Multivitamin [Multi-Day Vitamins] 1 each PO DAILY 08/28/16 [History] hydrALAZINE [HydrALAZINE] 10 mg PO TID PRN 09/18/16 [History] Enoxaparin [Lovenox] 30 mg SQ DAILY #14 syr 09/19/16 [Rx] HYDROcodone/Acet 5/325 mg [[place] 5-325 mg] 1 tab PO Q6H PRN #20 tab 09/19/16 [Rx ] Allergies/Adverse Reactions: Allergies aspirin Allergy (Verified 09/18/16 19:24) Rash pseudoephedrine [From Sudafed] Allergy (Verified 09/18/16 19:24) Rash Certification: Further, I certify that my clinical findings support that this patient is homebound (i.e. absences from home require considerable and taxing effort and are for medical reasons or spiritism services or infrequently or short duration when for other reasons) because: Homebound Reason: Patient requires assistance of a person or device to safely leave home Attestation: My signature below is to certify that this patient is under my care and that I, or nurse practitioner, or a physician's dietary assistant working with me, has a face-to -face encounter with this patient.
== END 2016-09-19 15:00 | disposition home health service (06) | DRG 563 ==
LOC: 3BNU 19:17 → EMEROO 19:17 → 3BNU 21:39
PROVIDERS: ADMIT Nurse Practitioner Family; ATTEND Nurse Practitioner Family

== ENCOUNTER 2016-09-20 15:02 | Inpatient (IN) ==
[2016-09-20] MEDS ORDERED: Naloxone 0.4 MG/ML INJ ONE (15:46)
[2016-09-20] MEDS ORDERED: Naloxone 0.4 MG/ML INJ IVP ONE (15:54)
[2016-09-20] MEDS ORDERED: 0.9 % Sodium Chloride 1,000 ML IVC ONE ×2 (15:54→20:53)
--- NOTE | 2016-09-20 16:48 | Emergency Department Note ---
Disposition Clinical Impression: Anemia, KARI (acute kidney injury) UTI (urinary tract infection) Qualifiers: Urinary tract infection type: site unspecified Hematuria presence: with hematuria Qualified Code(s): N39.0 - Urinary tract infection, site not specified Disposition: Admitted As Inpatient Condition: Fair Time of Disposition: 19:14 Weakness HPI - General Chief complaint: ED Weakness Stated complaint: unresponsive Time Seen by Provider: 09/20/16 15:05 Source: patient, EMS Mode of arrival: EMS Limitations: no limitations Nursing Notes Reviewed: Yes Vital Signs Reviewed: Yes - History of Present Illness HPI Narrative: 61 year old male with a PMH of diabetes, stroke, alcoholism....presents today by EMS because one of his home health care nurses found him to be unresponsive at home. Upon arrival in the ED the patient was awake and conversational but lethargic. His only complaint was that he felt lethargic. He has been diagnosed with a UTI and is currently receiving antibiotic therapy. Two days prior to arrival he was diagnosed with a tibia and fibular fracture of his left leg and is currently taking [place]. According to another one of his home health care nurses his mental status is not at his baseline but notes no other changes to his neurologic baseline, and he was last known to be at his baseline yesterday. Denies taking any [place] today and denies any alcohol consumption as well as any other medications or drugs. Denies chest pain, SOB, abdominal pain, dysuria, hematuria, N/V/D. Pt Subjective Complaint: generalized weakness/fatigue Onset (ago): hour(s) Duration: other (improving) Migration: none Pain Severity: none Pain Scale: 0 If pain, quality: sharp Improves with: none Worsens with: none Context: new medication (norco) Associated symptoms: Reports: confusion, loss of appetite. Denies: chest pain, fever/chills, nausea/vomiting, shortness of breath - Related Data Home Medications Medication Instructions Recorded Confirmed Ferrous Sulfate 325 mg PO BID 10/09/14 09/20/16 Omeprazole [PriLOSEC] 40 mg PO QAM 10/09/14 09/20/16 Simvastatin [Zocor] 40 mg PO QPM 10/09/14 09/20/16 Sucralfate [Carafate] 1 gm PO QID 10/09/14 09/20/16 Thiamine (B-1) [Vitamin B-1] 100 mg PO QAM 10/09/14 09/20/16 Zinc Sulfate 220 mg PO QAM 10/09/14 09/20/16 DULoxetine [Cymbalta] 20 mg PO DAILY 08/28/16 09/20/16 Insulin Glargine,Hum.rec.anlog 10 unit SQ HS 08/28/16 09/20/16 [Lantus Solostar] Insulin LISPRO [Humalog Kwikpen 0 unit SQ TIDWM PRN 08/28/16 09/20/16 U-100] Lactobacillus Acidophilus/Fos 1 each PO BID 08/28/16 09/20/16 [Acidophilus Probiotic Tablet] Lisinopril [Zestril] 10 mg PO BID 08/28/16 09/20/16 Loratadine [Claritin] 10 mg PO DAILY 08/28/16 09/20/16 Multivitamin [Multi-Day Vitamins] 1 each PO DAILY 08/28/16 09/20/16 hydrALAZINE [HydrALAZINE] 10 mg PO TID PRN 09/18/16 09/20/16 Previous Rx's Medication Instructions Recorded Magnesium Oxide [Mag-Ox] 400 mg PO BID #60 tablet 03/09/15 Mirtazapine [Remeron] 15 mg PO HS #30 tablet 03/09/15 Enoxaparin [Lovenox] 30 mg SQ DAILY #14 syr 09/19/16 HYDROcodone/Acet 5/325 mg [[place] 1 tab PO Q6H PRN #20 tab 09/19/16 5-325 mg] Allergies Allergy/AdvReac Type Severity Reaction Status Date / Time aspirin Allergy Rash Verified 09/20/16 15:04 pseudoephedrine Allergy Rash Verified 09/20/16 15:04 [From [facility]] All systems ED: reviewed and negative except as stated. Past Medical History - Past Medical History Attestation: Yes The following information was validated with the patient. Source: patient Medical history: Reports: CVA, diabetes, hyperlipidemia, hypertension, other Surgical history: Reports: hip replacement, orthopedic, other, other Psychiatric history: Reports: depression, prior suicide attempt - Social History Smoking Status: Former smoker Smokeless Tobacco Status: No Alcohol use: Reports: none Drug use: Reports: none Physical Exam - General Limitations: no limitations General appearance: alert, in no apparent distress - Head Head exam: atraumatic, normocephalic, normal inspection - Eye Eye exam: Present: normal appearance, PERRL, EOMI - ENT ENT exam: normal exam, normal oropharynx, mucous membranes moist - Neck Neck exam: Present: normal inspection, full ROM, trachea midline - Chest Chest inspection: Present: normal inspection, symmetric chest wall rise - Respiratory Respiratory exam: Present: normal lung sounds bilaterally - Cardiovascular Cardiovascular exam: Present: regular rate, normal rhythm, normal heart sounds - Abdominal Exam Abdominal exam: Present: soft, Non-Tender. Absent: tenderness, distention, guarding, rebound, rigidity - Extremities Exam Extremities exam: Present: normal inspection, full ROM. Absent: tenderness, pedal edema - Back Exam Back exam: Present: normal inspection, full ROM. Absent: tenderness - Neurological Exam Neurological exam: Present: alert, oriented X3 - Psychiatric Psychiatric exam: Present: normal affect, normal mood - Skin Skin exam: Present: warm, dry, intact, normal color Course Course Narrative: Patient seen and examined. Patient was just discharged yesterday after being inpatient for a right tib-fib fracture that was nonoperative management. Concern for an unresponsive episode. Patient recently been on [place] and it has made him feel funny. He states he feels groggy. His process control operator states he almost appears like he is "drunk". Since patient was placed on opioids recently , we will go ahead and give him a small dose of Narcan. We will assess his response. Altered mental status workup ordered. Patient was also diagnosed with a urinary tract infection and was placed on cefdinir prior to discharge home yesterday. Patient has only had one dose. We will cover him with Rocephin. - Reevaluation(s) Reevaluation #1: Patient's lab work show signs of acute on chronic renal failure with a creatinine of 2.8. Patient also has acute anemia of 8.1 which is lower than it was yesterday at 10.5. We will check a rectal and get hemaccult. 1 L IV fluids ordered. We will likely admit for kari, anemia, overmedication. I spoke with hospitalist Kira Flynn who has accepted patient for admission. Time: 18:03 Vital Signs Temperature 98.6 F 09/20/16 15:04 Pulse Rate 75 09/20/16 15:04 Respiratory Rate 20 09/20/16 15:04 Blood Pressure 121/71 09/20/16 15:04 O2 Sat by Pulse Oximetry 80 09/20/16 15:04 Temperature 98.9 F 09/21/16 07:17 Pulse Rate 67 09/21/16 07:17 Respiratory Rate 18 09/21/16 07:17 Blood Pressure 129/68 09/21/16 07:17 O2 Sat by Pulse Oximetry 97 09/21/16 07:17 Oxygen Delivery Oxygen Delivery Nasal Cannula Weakness - Medical Records Medical records reviewed: Yes I reviewed the patient's medical records. - Lab Data Lab results reviewed: Yes I reviewed the patient's lab results. Result diagrams: 09/21/16 02:46 09/21/16 02:46 Lab Results 09/20/16 09/20/16 09/20/16 Range/Units 15:40 16:25 16:25 WBC 11.8 H (4.3-11.1) K/mcL RBC 3.07 L (4.19-5.50) M/mcL Hgb 8.9 L D (12.9-16.9) g/dL Hct 28.8 L (37.5-50.1) % MCV 93.8 (83.0-100.0) fL MCH 29.0 (28.0-33.3) pg MCHC 30.9 L (31.6-35.5) g/dL RDW 14.6 H (11.5-14.5) % Plt Count 257 (140-400) K/mcL MPV 10.2 (9.4-12.4) fL Immature Gran % 0.9 (0-4) % Seg Neutrophils % 71.9 % Lymphocytes % 14.0 % Monocytes % 8.3 % Eosinophils % 4.5 % Basophils % 0.4 % Neutrophils # 8.4 (1.6-8.9) K/mcL Lymphocytes # 1.6 (0.6-4.6) K/mcL Monocytes # 1.0 (0.0-1.3) K/mcL Eosinophils # 0.5 (0.0-0.6) K/mcL Basophils # 0.1 (0.0-0.2) K/mcL Sodium 136 (136-145) mEq/L Potassium 4.5 (3.5-4.5) mEq/L Chloride 101 (98-109) mEq/L Carbon Dioxide 29 (19-29) mEq/L BUN 48 H D (8-26) mg/dL Creatinine 2.81 H (0.72-1.25) mg/dL Est GFR ( Amer) 28 L (> 60) Est GFR (Non-Af Amer) 23 L (> 60) BUN/Creatinine Ratio 17 (6-26) Glucose 175 H (70-99) mg/dL POC Glucose 172 H (58-89) Calculated Osmolality 299 (280-300) Calcium 9.2 (8.6-10.8) mg/dL Magnesium (1.6-2.6) mg/dL Total Bilirubin 0.8 (0.2-1.2) mg/dL Direct Bilirubin 0.2 (0.0-0.5) mg/dL Indirect Bilirubin 0.6 (0.0-1.2) mg/dL AST 15 (5-34) Units/L ALT 14 (0-55) Units/L Alkaline Phosphatase 167 H (38-126) Units/L Troponin I (0-0.03) ng/mL Serum Total Protein 6.0 (6.0-8.3) g/dL Albumin 2.7 L (3.5-5.0) g/dL Globulin 3.3 (2.4-3.5) g/dL Albumin/Globulin Ratio 0.8 L (1.1-2.2) Folate (7.0-31.4) ng/mL TSH (0.350-4.840) mcIU/mL Urine Color (Yellow) Urine Clarity (Clear) Urine pH (5.0-8.0) pH Units Ur Specific [place] (1.010-1.025) Urine Protein (Neg-Trace) mg/dL Urine Glucose (UA) (Normal) mg/dL Urine Ketones (Negative) mg/dL Urine Blood (Negative) Urine Nitrite (Negative) Urine Bilirubin (Negative) Urine Urobilinogen (Normal) mg/dL Ur Leukocyte Esterase (Negative) Urine Microscopic RBC (0-3) per hpf Urine Microscopic WBC (0-3) per hpf Ur Squamous Epith Cells (None-Few) per lpf Urine Bacteria (None-Few) per hpf Hyaline Casts (None-Few) per lpf Urine Mucus (Few) Urine Yeast (None Seen) per hpf Ur Culture Indicated? (NO) Stool Occult Blood (Negative) Ethyl Alcohol < 10 (0-10) mg/dL 09/20/16 09/20/16 09/20/16 Range/Units 16:25 16:25 17:58 WBC (4.3-11.1) K/mcL RBC (4.19-5.50) M/mcL Hgb (12.9-16.9) g/dL Hct (37.5-50.1) % MCV (83.0-100.0) fL MCH (28.0-33.3) pg MCHC (31.6-35.5) g/dL RDW (11.5-14.5) % Plt Count (140-400) K/mcL MPV (9.4-12.4) fL Immature Gran % (0-4) % Seg Neutrophils % % Lymphocytes % % Monocytes % % Eosinophils % % Basophils % % Neutrophils # (1.6-8.9) K/mcL Lymphocytes # (0.6-4.6) K/mcL Monocytes # (0.0-1.3) K/mcL Eosinophils # (0.0-0.6) K/mcL Basophils # (0.0-0.2) K/mcL Sodium (136-145) mEq/L Potassium (3.5-4.5) mEq/L Chloride (98-109) mEq/L Carbon Dioxide (19-29) mEq/L BUN (8-26) mg/dL Creatinine (0.72-1.25) mg/dL Est GFR ( Amer) (> 60) Est GFR (Non-Af Amer) (> 60) BUN/Creatinine Ratio (6-26) Glucose (70-99) mg/dL POC Glucose (58-89) Calculated Osmolality (280-300) Calcium (8.6-10.8) mg/dL Magnesium (1.6-2.6) mg/dL Total Bilirubin (0.2-1.2) mg/dL Direct Bilirubin (0.0-0.5) mg/dL Indirect Bilirubin (0.0-1.2) mg/dL AST (5-34) Units/L ALT (0-55) Units/L Alkaline Phosphatase (38-126) Units/L Troponin I 0.03 (0-0.03) ng/mL Serum Total Protein (6.0-8.3) g/dL Albumin (3.5-5.0) g/dL Globulin (2.4-3.5) g/dL Albumin/Globulin Ratio (1.1-2.2) Folate (7.0-31.4) ng/mL TSH 1.366 (0.350-4.840) mcIU/mL Urine Color (Yellow) Urine Clarity (Clear) Urine pH (5.0-8.0) pH Units Ur Specific [place] (1.010-1.025) Urine Protein (Neg-Trace) mg/dL Urine Glucose (UA) (Normal) mg/dL Urine Ketones (Negative) mg/dL Urine Blood (Negative) Urine Nitrite (Negative) Urine Bilirubin (Negative) Urine Urobilinogen (Normal) mg/dL Ur Leukocyte Esterase (Negative) Urine Microscopic RBC (0-3) per hpf Urine Microscopic WBC (0-3) per hpf Ur Squamous Epith Cells (None-Few) per lpf Urine Bacteria (None-Few) per hpf Hyaline Casts (None-Few) per lpf Urine Mucus (Few) Urine Yeast (None Seen) per hpf Ur Culture Indicated? (NO) Stool Occult Blood Negative (Negative) Ethyl Alcohol (0-10) mg/dL 09/20/16 09/20/16 09/20/16 Range/Units 18:16 20:25 20:34 WBC (4.3-11.1) K/mcL RBC (4.19-5.50) M/mcL Hgb (12.9-16.9) g/dL Hct (37.5-50.1) % MCV (83.0-100.0) fL MCH (28.0-33.3) pg MCHC (31.6-35.5) g/dL RDW (11.5-14.5) % Plt Count (140-400) K/mcL MPV (9.4-12.4) fL Immature Gran % (0-4) % Seg Neutrophils % % Lymphocytes % % Monocytes % % Eosinophils % % Basophils % % Neutrophils # (1.6-8.9) K/mcL Lymphocytes # (0.6-4.6) K/mcL Monocytes # (0.0-1.3) K/mcL Eosinophils # (0.0-0.6) K/mcL Basophils # (0.0-0.2) K/mcL Sodium (136-145) mEq/L Potassium (3.5-4.5) mEq/L Chloride (98-109) mEq/L Carbon Dioxide (19-29) mEq/L BUN (8-26) mg/dL Creatinine (0.72-1.25) mg/dL Est GFR ( Amer) (> 60) Est GFR (Non-Af Amer) (> 60) BUN/Creatinine Ratio (6-26) Glucose (70-99) mg/dL POC Glucose 178 H (58-89) Calculated Osmolality (280-300) Calcium (8.6-10.8) mg/dL Magnesium (1.6-2.6) mg/dL Total Bilirubin (0.2-1.2) mg/dL Direct Bilirubin (0.0-0.5) mg/dL Indirect Bilirubin (0.0-1.2) mg/dL AST (5-34) Units/L ALT (0-55) Units/L Alkaline Phosphatase (38-126) Units/L Troponin I (0-0.03) ng/mL Serum Total Protein (6.0-8.3) g/dL Albumin (3.5-5.0) g/dL Globulin (2.4-3.5) g/dL Albumin/Globulin Ratio (1.1-2.2) Folate 16.5 (7.0-31.4) ng/mL TSH (0.350-4.840) mcIU/mL Urine Color Yellow (Yellow) Urine Clarity Turbid A (Clear) Urine pH 6.0 (5.0-8.0) pH Units Ur Specific [place] 1.021 (1.010-1.025) Urine Protein 100 H (Neg-Trace) mg/dL Urine Glucose (UA) 100 H (Normal) mg/dL Urine Ketones 15 H (Negative) mg/dL Urine Blood Moderate H (Negative) Urine Nitrite Negative (Negative) Urine Bilirubin Negative (Negative) Urine Urobilinogen Normal (Normal) mg/dL Ur Leukocyte Esterase Large H (Negative) Urine Microscopic RBC 3-5 H (0-3) per hpf Urine Microscopic WBC TNTC H (0-3) per hpf Ur Squamous Epith Cells Many H (None-Few) per lpf Urine Bacteria Moderate H (None-Few) per hpf Hyaline Casts None Seen (None-Few) per lpf Urine Mucus Few (Few) Urine Yeast Many H (None Seen) per hpf Ur Culture Indicated? YES A (NO) Stool Occult Blood (Negative) Ethyl Alcohol (0-10) mg/dL 09/20/16 09/21/16 09/21/16 Range/Units 23:55 02:46 02:46 WBC 9.3 (4.3-11.1) K/mcL RBC 2.76 L (4.19-5.50) M/mcL Hgb 8.0 L (12.9-16.9) g/dL Hct 26.0 L (37.5-50.1) % MCV 94.2 (83.0-100.0) fL MCH 29.0 (28.0-33.3) pg MCHC 30.8 L (31.6-35.5) g/dL RDW 14.2 (11.5-14.5) % Plt Count 209 (140-400) K/mcL MPV 10.0 (9.4-12.4) fL Immature Gran % 0.9 (0-4) % Seg Neutrophils % 64.4 % Lymphocytes % 20.0 % Monocytes % 8.4 % Eosinophils % 5.9 % Basophils % 0.4 % Neutrophils # 6.0 (1.6-8.9) K/mcL Lymphocytes # 1.9 (0.6-4.6) K/mcL Monocytes # 0.8 (0.0-1.3) K/mcL Eosinophils # 0.6 (0.0-0.6) K/mcL Basophils # 0.0 (0.0-0.2) K/mcL Sodium 134 L (136-145) mEq/L Potassium 4.3 (3.5-4.5) mEq/L Chloride 105 (98-109) mEq/L Carbon Dioxide 24 (19-29) mEq/L BUN 41 H (8-26) mg/dL Creatinine 2.34 H (0.72-1.25) mg/dL Est GFR ( Amer) 35 L (> 60) Est GFR (Non-Af Amer) 29 L (> 60) BUN/Creatinine Ratio 18 (6-26) Glucose 281 H (70-99) mg/dL POC Glucose 292 H (58-89) Calculated Osmolality 298 (280-300) Calcium 8.2 L (8.6-10.8) mg/dL Magnesium 1.7 (1.6-2.6) mg/dL Total Bilirubin (0.2-1.2) mg/dL Direct Bilirubin (0.0-0.5) mg/dL Indirect Bilirubin (0.0-1.2) mg/dL AST (5-34) Units/L ALT (0-55) Units/L Alkaline Phosphatase (38-126) Units/L Troponin I (0-0.03) ng/mL Serum Total Protein (6.0-8.3) g/dL Albumin (3.5-5.0) g/dL Globulin (2.4-3.5) g/dL Albumin/Globulin Ratio (1.1-2.2) Folate (7.0-31.4) ng/mL TSH (0.350-4.840) mcIU/mL Urine Color (Yellow) Urine Clarity (Clear) Urine pH (5.0-8.0) pH Units Ur Specific [place] (1.010-1.025) Urine Protein (Neg-Trace) mg/dL Urine Glucose (UA) (Normal) mg/dL Urine Ketones (Negative) mg/dL Urine Blood (Negative) Urine Nitrite (Negative) Urine Bilirubin (Negative) Urine Urobilinogen (Normal) mg/dL Ur Leukocyte Esterase (Negative) Urine Microscopic RBC (0-3) per hpf Urine Microscopic WBC (0-3) per hpf Ur Squamous Epith Cells (None-Few) per lpf Urine Bacteria (None-Few) per hpf Hyaline Casts (None-Few) per lpf Urine Mucus (Few) Urine Yeast (None Seen) per hpf Ur Culture Indicated? (NO) Stool Occult Blood (Negative) Ethyl Alcohol (0-10) mg/dL 09/21/16 Range/Units 03:42 WBC (4.3-11.1) K/mcL RBC (4.19-5.50) M/mcL Hgb (12.9-16.9) g/dL Hct (37.5-50.1) % MCV (83.0-100.0) fL MCH (28.0-33.3) pg MCHC (31.6-35.5) g/dL RDW (11.5-14.5) % Plt Count (140-400) K/mcL MPV (9.4-12.4) fL Immature Gran % (0-4) % Seg Neutrophils % % Lymphocytes % % Monocytes % % Eosinophils % % Basophils % % Neutrophils # (1.6-8.9) K/mcL Lymphocytes # (0.6-4.6) K/mcL Monocytes # (0.0-1.3) K/mcL Eosinophils # (0.0-0.6) K/mcL Basophils # (0.0-0.2) K/mcL Sodium (136-145) mEq/L Potassium (3.5-4.5) mEq/L Chloride (98-109) mEq/L Carbon Dioxide (19-29) mEq/L BUN (8-26) mg/dL Creatinine (0.72-1.25) mg/dL Est GFR ( Amer) (> 60) Est GFR (Non-Af Amer) (> 60) BUN/Creatinine Ratio (6-26) Glucose (70-99) mg/dL POC Glucose 248 H (58-89) Calculated Osmolality (280-300) Calcium (8.6-10.8) mg/dL Magnesium (1.6-2.6) mg/dL Total Bilirubin (0.2-1.2) mg/dL Direct Bilirubin (0.0-0.5) mg/dL Indirect Bilirubin (0.0-1.2) mg/dL AST (5-34) Units/L ALT (0-55) Units/L Alkaline Phosphatase (38-126) Units/L Troponin I (0-0.03) ng/mL Serum Total Protein (6.0-8.3) g/dL Albumin (3.5-5.0) g/dL Globulin (2.4-3.5) g/dL Albumin/Globulin Ratio (1.1-2.2) Folate (7.0-31.4) ng/mL TSH (0.350-4.840) mcIU/mL Urine Color (Yellow) Urine Clarity (Clear) Urine pH (5.0-8.0) pH Units Ur Specific [place] (1.010-1.025) Urine Protein (Neg-Trace) mg/dL Urine Glucose (UA) (Normal) mg/dL Urine Ketones (Negative) mg/dL Urine Blood (Negative) Urine Nitrite (Negative) Urine Bilirubin (Negative) Urine Urobilinogen (Normal) mg/dL Ur Leukocyte Esterase (Negative) Urine Microscopic RBC (0-3) per hpf Urine Microscopic WBC (0-3) per hpf Ur Squamous Epith Cells (None-Few) per lpf Urine Bacteria (None-Few) per hpf Hyaline Casts (None-Few) per lpf Urine Mucus (Few) Urine Yeast (None Seen) per hpf Ur Culture Indicated? (NO) Stool Occult Blood (Negative) Ethyl Alcohol (0-10) mg/dL - Radiology Data Radiology results reviewed: Yes I reviewed the patient's radiology results. Chest X-Ray 09/20/16 15:54 IMPRESSION: No acute cardiopulmonary process. D/ / 09/20/2016 16:24:57 Enoc Bernal MD / dariusz Interpreting Provider: Enoc Bernal MD - EKG Data EKG attestation: Yes I reviewed and interpreted this EKG. EKG results narrative: EKG done at 1611 shows normal sinus rhythm with a rate of [address] elevation or depression. First-degree AV block noted. Normal axis. No change when compared with prior EKG done 08/28/2016 Attestation Statement - Attestation Attestation: I personally interviewed and examined this patient and my medical decision- making was reviewed with the Resident Physician, Dr. Gan. I agree with the documented findings, disposition and treatment plan as described except to the extent set forth below. Pt is a 61 yo wm brought by EMS from home with home health nurse with concerns for altered mental status. Nurse reportedly had trouble waking pt this morning. Pt recently DC'd from [place] for fall and L tib/fib closed fracture. Pt also Dx' d with UTI and started on antibx, although nurse mentions he has only had a single dose since DC to home. Pt with failure to thrive since arriving home, dec PO intake and extremely drowsy, "seems drunk" per his nurse. Pt awake and conversant, although drowsy and reports feeling "confused". Pt denies any other symptoms or complaints. Pt dec from morphine to norco. Nurse concerned that he "just isn't himself". Worried about dehydration and overmedication. Pt is on lovenox for DVT prophylaxis. Agree with PE as documented by Dr. Gan. Pt with stable VS, except hypoxic on RA. The hypoxia was intermittent, and seemed associated with pt's drowsiness. Pt given narcan with improved alertness and resolution of his hypoxia. Pt's labs show dehydration and worsening acute on chronic RI, anemia, and UTI. BP stable throughout. Initiated IV antibx, IVF, and sent rectal exam which was negative for blood. Pt will be admitted for further eval and tx of above issues including confusion and hypoxia secndary to overmedication; possibly due to worsening renal fxn.
[2016-09-20 17:04] LABS: Basophils # 0.1 K/mcL (0.0-0.2); Basophils % 0.4 %; Eosinophils # 0.5 K/mcL (0.0-0.6); Eosinophils % 4.5 %; Hematocrit 28.8 % (37.5-50.1); Immature Granulocytes % 0.9 % (0-4); Lymphocytes # 1.6 K/mcL (0.6-4.6); Mean Corpuscular HGB Conc 30.9 g/dL (31.6-35.5); Mean Corpuscular Volume 93.8 fL (83.0-100.0); Mean Platelet Volume 10.2 fL (9.4-12.4); Monocytes % 8.3 %; Neutrophils # 8.4 K/mcL (1.6-8.9); Platelet Count 257 K/mcL (140-400); Red Blood Count 3.07 M/mcL (4.19-5.50); Red Cell Distribution Width 14.6 % (11.5-14.5); Segmented Neutrophils % 71.9 %
[2016-09-20 17:05] LABS: Hemoglobin 8.9 g/dL (12.9-16.9)
[2016-09-20 17:21] LABS: Alanine Aminotransferase 14 Units/L (0-55); Albumin 2.7 g/dL (3.5-5.0); Albumin/Globulin Ratio 0.8 (1.1-2.2); Alkaline Phosphatase 167 Units/L (38-126); Aspartate Amino Transferase 15 Units/L (5-34); BUN/Creatinine Ratio 17 (6-26); Bilirubin,Direct 0.2 mg/dL (0.0-0.5); Bilirubin,Indirect 0.6 mg/dL (0.0-1.2); Bilirubin,Total 0.8 mg/dL (0.2-1.2); Calcium 9.2 mg/dL (8.6-10.8); Carbon Dioxide 29 mEq/L (19-29); Chloride 101 mEq/L (98-109); Globulin 3.3 g/dL (2.4-3.5); Glucose 175 mg/dL (70-99); Osmolality,Calculated 299 (280-300); Potassium 4.5 mEq/L (3.5-4.5); Sodium 136 mEq/L (136-145); eGFR For African Americans 28 (> 60); eGFR For Non-African Americans 23 (> 60)
[2016-09-20 17:22] LABS: Blood Urea Nitrogen 48 mg/dL (8-26); Ethanol < 10 mg/dL (0-10)
[2016-09-20 18:24] LABS: Bilirubin,Urine Negative (Negative); Blood,Urine Moderate (Negative); Clarity,Urine Turbid (Clear); Color,Urine Yellow (Yellow); Glucose,Urine (UA) 100 mg/dL (Normal); Ketones,Urine 15 mg/dL (Negative); Leukocyte Esterase,Urine Large (Negative); Nitrite,Urine Negative (Negative); Protein,Urine 100 mg/dL (Neg-Trace); Specific Gravity,Urine 1.021 (1.010-1.025); Urobilinogen,Urine Normal (Normal)
[2016-09-20 18:26] LABS: Squamous Epithelial Cell,Urine Many per lpf (None-Few); WBC,Urine TNTC per hpf (0-3)
[2016-09-20 18:39] LABS: Bacteria,Urine Moderate per hpf (None-Few); Hyaline Casts,Urine None Seen per lpf (None-Few); Mucus,Urine Few (Few); Yeast,Urine Many per hpf (None Seen)
[2016-09-20] MEDS ORDERED: Naloxone 0.4 MG/ML INJ IVP PRN (19:44)
[2016-09-20] MEDS ORDERED: *HR* Dextrose 50 % in Water (Syg) 50 ML SYRINGE IVP PRN (19:47)
[2016-09-20] MEDS ORDERED: D5% in Water 1,000 ML IVC PRN (19:47)
[2016-09-20] MEDS ORDERED: Dextrose Gel 15 GM PO PRN ×2 (19:47)
[2016-09-20] MEDS ORDERED: hydrALAZINE 10 MG TABLET PO PRN (19:50)
--- NOTE | 2016-09-20 20:04 | Internal Med History&Physical ---
Date of Encounter: 09/20/16 Time of Encounter: 20:01 Assessment and Plan (1) Metabolic encephalopathy Current visit: Yes Status: Acute 1 patient presented lethargic and confused. I suspect this is related to a KI dehydration as well as receiving narcotics and UTI. Patient was given some Narcan as well as IV fluids which did improve his mentation. We will continue with IV fluids overnight 2 we will avoid narcotics 3 we will treat UTI previous cultures grew Enterobacter cloace which was sensitive to Levaquin we will start Levaquin at renal dose (2) UTI (urinary tract infection) Current visit: Yes Status: Acute 1 patient has history of chronic UTI. He was recently admitted and at that time was receiving Levaquin. He was discharged home however he had not resumed his antibiotic. He has presented today with altered mental state urinalysis indicated UTI. We will continue with Levaquin for now-previous urine culture grew Enterobacter which was sensitive to Levaquin. We will renally dose Qualifiers: Urinary tract infection type: site unspecified Hematuria presence: with hematuria Qualified Code(s): N39.0 - Urinary tract infection, site not specified; R31.9 - Hematuria, unspecified (3) Anemia Current visit: No Status: Chronic 1 is a history of anemia-no active bleeding right now we will continue to monitor- Last EGD which was normal was 2014 as well as C scope revealed a rectal mucosal ulcerations. Diverticulosis and evidence ofcolitis. 2 recheck CBC in a.m. Qualifiers: Anemia type: other cause Other causes of anemia: other cause, not classified Qualified Code(s): D64.89 - Other specified anemias (4) Juywf-lp-fivmxuu kidney injury Current visit: No Status: Acute 1 patient's creatinine is 2.8. His baseline is around 1.6-1.5 suspect that this is related to poor oral intake-dehydration. We will give IV fluids overnight 2 we will avoid nephrotoxins 3 renally dose antibiotics 4 monitor intake and output daily weights Qualifiers: Acute renal failure type: unspecified Chronic kidney disease stage: stage 3 (moderate) Qualified Code(s): N17.9 - Acute kidney failure, unspecified; N18.3 - Chronic kidney disease, stage 3 (moderate) (5) Dehydration Current visit: Yes Status: Acute 1 patient has history of poor oral intake. We will continue with IV fluids 2 we will monitor electrolytes and replace as needed 3 monitor intake and output daily weights 4 we will give 2 L IV fluid bolus (6) History of stroke Current visit: No Status: Chronic 1 patient has past history of stroke with residual left-sided weakness. He did have altered mental state today however I suspect this is related to narcotic as well as infectious processes. He improved after receiving Narcan and IV fluids. He is presently at baseline. We will continue with statin. Patient has not aspirin due to allergy (7) DM (diabetes mellitus), type 2 Current visit: No Status: Chronic 1 Accu-Cheks before meals at bedtime we will sign scale insulin as well as basal 2 diabetic diet Qualifiers: Diabetes mellitus complication status: with hypoglycemia Diabetes mellitus complication detail: without coma Diabetes mellitus halfway insulin use: with halfway use Qualified Code(s): E11.649 - Type 2 diabetes mellitus with hypoglycemia without coma; Z79.4 - senior living (current) use of insulin (8) DVT prophylaxis Current visit: No Status: Acute 1 patient was on Lovenox we will place on heparin due to rising creatinine (9) Tibia fracture Current visit: No Status: Acute 1 she will follow-up with orthopedics 2 continue with immobilizer 3 continue with DVT prophylaxis-heparin 4 cautious with opioids 5 we will check for DVT-Doppler right leg Qualifiers: Encounter type: initial encounter Tibia location: shaft Fracture type: closed Fracture morphology: comminuted Fracture alignment: displaced Laterality: right Qualified Code(s): S82.251A - Displaced comminuted fracture of shaft of right tibia, initial encounter for closed fracture Internal Medicine - H&P: HPI Chief complaint: lethargy Admitted From: Emergency Dept Plans for Post Hospital Care: Home History of present illness: Mr. Neal is a 61 year old male past medical history including insulin- dependent diabetes mellitus chronic kidney disease stage III I pretension previous CVA with residual left-sided weakness recurrent UTIs hypertension history of alcohol abuse depression esophageal rupture in the past status post esophagotomy and failure to thrive. Patient was recently discharged from this facility on 10/19/2016 after sustaining a right tib-fib fracture he was evaluated by orthopedics at that time this was not operable patient was placed in immobilizer with DVT prophylaxis and pain medication. He also had a UTI upon this admission and was given Levaquin he was discharged on oral antibiotics however he had not started on his new antibiotic prescription. Patient was found by his home health care nurse unresponsive he was brought to the ED for evaluation Of arrival patient was awake and conversational lethargic. He was given Narcan IV as well as IV fluids and oxygen. He became more arousable and is presently back to his baseline. Lab work obtained did reveal a KI with a creatinine of 2.8 he was anemic with hemoglobin 8.9 stool occult was negative chest x-ray was obtained which displayed no acute processes. He has been admitted for further workup and evaluation. Presently patient is alert appropriate home health nurses at bedside she states that he is at his baseline. He is normal sinus rhythm on the monitor oxygen saturation is 96% on 2 L nasal cannula. His lung sounds with coarse rhonchi heart sounds are regular S1-S2 with no rubs clicks canals murmurs noted abdomen soft nontender. Lower extremities are contracted which is his baseline right leg is immobilized. Lower extremities are pink warm with brisk capillary refill he does have some swelling to his right leg however it is not taut and has not grown passed markings. He is hemodynamically stable this time. He denies any fevers chills nausea vomiting shortness of breath abdominal pain dysuria or hematuria I reviewed this case with Dr. Porter who agrees with plan 6 Past Med Surg Social Fam HX - Past Medical History Medical history: CVA, diabetes, hyperlipidemia, hypertension, other Psychiatric history: depression, prior suicide attempt - Past Surgical History Surgical History: hip replacement, orthopedic, other, other - Social History Smoking Status: Former smoker Smokeless Tobacco Status: No Alcohol use: none Drug use: none - Family History Mother Living Status: Still Living Hx Family Cardiac Disorders: Yes (A-fib s/p pacemaker) Hx Family Endocrine Disorder: Yes (DM) Father Living Status: Hx Family Cardiac Disorders: Yes (heart disease) Hx Family Respiratory Disorders: No Hx Family Cancer: No Hx Family GI Disorders: No Hx Family Endocrine Disorder: No Hx Family Neuromuscular Disorders: No Hx Family Neurologic Disorders: No Hx Family HEENT Disorders: No Hx Family Autoimmune Disorders: No Brother Living Status: Hx Family Cardiac Disorders: Yes (NH) Hx Family Endocrine Disorder: Yes (DM) Internal Medicine - H&P: Meds Ferrous Sulfate 325 mg PO BID 10/09/14 [History] Omeprazole [PriLOSEC] 40 mg PO QAM 10/09/14 [History] Simvastatin [Zocor] 40 mg PO QPM 10/09/14 [History] Sucralfate [Carafate] 1 gm PO QID 10/09/14 [History] Thiamine (B-1) [Vitamin B-1] 100 mg PO QAM 10/09/14 [History] Zinc Sulfate 220 mg PO QAM 10/09/14 [History] Magnesium Oxide [Mag-Ox] 400 mg PO BID #60 tablet 03/09/15 [Rx] Mirtazapine [Remeron] 15 mg PO HS #30 tablet 03/09/15 [Rx] DULoxetine [Cymbalta] 20 mg PO DAILY 08/28/16 [History] Insulin Glargine,Hum.rec.anlog [Lantus Solostar] 10 unit SQ HS 08/28/16 [History ] Insulin LISPRO [Humalog Kwikpen U-100] 0 unit SQ TIDWM PRN 08/28/16 [History] Lactobacillus Acidophilus/Fos [Acidophilus Probiotic Tablet] 1 each PO BID 08/28 [History] Lisinopril [Zestril] 10 mg PO BID 08/28/16 [History] Loratadine [Claritin] 10 mg PO DAILY 08/28/16 [History] Multivitamin [Multi-Day Vitamins] 1 each PO DAILY 08/28/16 [History] hydrALAZINE [HydrALAZINE] 10 mg PO TID PRN 09/18/16 [History] Enoxaparin [Lovenox] 30 mg SQ DAILY #14 syr 09/19/16 [Rx] HYDROcodone/Acet 5/325 mg [Anson 5-325 mg] 1 tab PO Q6H PRN #20 tab 09/19/16 [Rx ] Allergies aspirin Allergy (Verified 09/20/16 15:04) Rash pseudoephedrine [From Sudafed] Allergy (Verified 09/20/16 15:04) Rash All Systems PM: A 10-system review of systems was performed and is negative for pertinent findings except as documented above in the HPI. - Constitutional Constitutional: anorexia, no chills, no fever(s), no night sweats - EENT Eyes: no change in vision, no discharge, no pain, no photophobia Nose, mouth and throat: no dysphagia, no nasal discharge, no neck pain, no sore throat - Cardiovascular Cardiovascular ROS IM: no chest pain, no diaphoresis, no dyspnea, no lightheadedness, no palpitations, no syncope - Respiratory Respiratory: cough - Gastrointestinal Gastrointestinal: no abdominal pain, no diarrhea, no hematemesis, no hematochezia, no melena, no nausea, no vomiting - Musculoskeletal Musculoskeletal ROS IM: no numbness, no tingling - Integumentary Integumentary IM: no rash, no unusual bruising - Neurological Neurological ROS: no confusion, no convulsions, no focal weakness, no numbness, no tingling, no tremor(s) - Hematologic/Lymphatic Hematologic/Lymphatic: no easy bruising - Constitutional Vitals: Temp Pulse Resp BP Pulse Ox 98.6 F 82 18 143/73 100 09/20/16 15:04 09/20/16 17:09 09/20/16 19:33 09/20/16 19:33 09/20/16 17:09 General appearance: Present: A&O X 3, answers questions appropriately - Head Head exam: Present: atraumatic, normocephalic - Eye Eye exam: Present: PERRL, conjuntiva pink, sclera anicteric - Neck Neck exam general surgery: Present: supple, trachea midline. Absent: lymphadenopathy - Respiratory Respiratory exam: Present: rhonchi. Absent: accessory muscle use, rales, wheezes - Cardiovascular Cardiovascular exam: Present: RRR, +S1, +S2. Absent: diastolic murmur, gallop, rubs, systolic murmur - GI/Abdominal GI/Abdominal exam: Present: normal bowel sounds, soft, no peritoneal signs. Absent: distended, tenderness - Extremities Exam Extremities exam: Present: pedal edema, warm, radial pulses palpable and symetrical. Absent: calf tenderness, cyanotic - Expanded Lower Extremities Exam Lower Leg exam: Present: swelling - Neurological Exam Neurological exam: Present: CN II-XII intact, oriented X3, no focal deficits. Absent: pronater drift, facial droop, speech deficit - Skin Skin exam: Present: dry, intact Internal Med - H&P Results - Labs CBC & Chem 7: 09/20/16 16:25 09/20/16 16:25 - EKG Data EKG shows normal: sinus rhythm - Diagnostic Studies Chest x-ray Additional comments: Chest X-Ray 09/20/16 15:54 IMPRESSION: No acute cardiopulmonary process. D/ / 09/20/2016 16:24:57 Enoc Bernal MD / [email or web address] Interpreting Provider: Enoc Bernal MD
--- NOTE | 2016-09-20 20:57 | Event Note ---
Date of Encounter: 09/20/16 Time of Encounter: 20:54 Patient seen and examined with nurse practitioner. Agree with assessment and plan. Patient discharged from the hospital yesterday presents after he was found unresponsive by homecare nurses. Multifactorial related to effective pain medications (which he was getting for our inoperable leg fracture) in the setting of acute renal failure, urinary tract infection. Patient will receive 2 eatables of normal saline, continue hydration. We will start the patient according to cultures on levofloxacin 750 mg IV every 48 hours. Monitor urine output. Hemoglobin is 8.9 close to baseline will follow. No obvious G.I. bleeding. We will keep on heparin for DVT prophylaxis. Full code
[2016-09-20] MEDS: Sucralfate 1 GM TABLET PO SCH (21:45)
[2016-09-20] MEDS: Lactobacillus 1 EACH CAP.SPRINK PO SCH (21:45)
[2016-09-20] MEDS: Levofloxacin 750 MG/150 ML 750 MG/150 ML BAG IVPB SCH (21:46)
[2016-09-20] MEDS: Insulin LISPRO 300 UNITS/3 ML VIAL SQ SCH (21:48)
[2016-09-20] MEDS: *HR* Heparin 5,000 UNIT/ML VIAL SQ SCH (21:48)
[2016-09-20] MEDS: Insulin DETEMIR 100 UNIT/ML X5UNITS SQ SCH (21:49)
[2016-09-21] MEDS: 0.9 % Sodium Chloride 1,000 ML IVC SCH ×2 (03:00→14:35)
[2016-09-21 03:54] LABS: Basophils % 0.4 %; Eosinophils # 0.6 K/mcL (0.0-0.6); Eosinophils % 5.9 %; Immature Granulocytes % 0.9 % (0-4); Lymphocytes # 1.9 K/mcL (0.6-4.6); Mean Corpuscular HGB Conc 30.8 g/dL (31.6-35.5); Mean Corpuscular Volume 94.2 fL (83.0-100.0); Monocytes # 0.8 K/mcL (0.0-1.3); Monocytes % 8.4 %; Platelet Count 209 K/mcL (140-400); Red Blood Count 2.76 M/mcL (4.19-5.50); Red Cell Distribution Width 14.2 % (11.5-14.5); Segmented Neutrophils % 64.4 %
[2016-09-21] MEDS: *HR* HYDROcodone/Acet 5/325 mg TABLET PO PRN ×3 (04:08→21:00)
[2016-09-21 04:09] LABS: Calcium 8.2 mg/dL (8.6-10.8); Magnesium 1.7 mg/dL (1.6-2.6); Potassium 4.3 mEq/L (3.5-4.5)
[2016-09-21] MEDS: *HR* Heparin 5,000 UNIT/ML VIAL SQ SCH ×3 (06:43→21:01)
[2016-09-21] MEDS: Insulin LISPRO 300 UNITS/3 ML VIAL SQ SCH ×4 (08:58→22:20)
[2016-09-21] MEDS: Zinc Sulfate 220 MG CAPSULE PO SCH (10:11)
[2016-09-21] MEDS: Sucralfate 1 GM TABLET PO SCH ×4 (10:11→21:01)
[2016-09-21] MEDS: Lactobacillus 1 EACH CAP.SPRINK PO SCH ×2 (10:11→21:00)
[2016-09-21] MEDS: Thiamine (B-1) 100 MG TABLET PO SCH (10:11)
--- NOTE | 2016-09-21 10:25 | Electrocardiograph Report ---
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
--- NOTE | 2016-09-21 17:16 | Internal Med Progress Note ---
Date of Encounter: 09/21/16 Time of Encounter: 17:10 - Assessment and plan (1) Acute metabolic encephalopathy Current Visit: Yes Status: Acute (2) Urinary tract infection Current Visit: Yes Status: Resolved Qualifiers: Qualified Code(s): N39.0 - Urinary tract infection, site not specified (3) Cxkoh-fu-yqhecfe kidney injury Current Visit: Yes Status: Acute Qualifiers: Acute renal failure type: unspecified Chronic kidney disease stage: stage 3 (moderate) Qualified Code(s): N17.9 - Acute kidney failure, unspecified; N18.3 - Chronic kidney disease, stage 3 (moderate) (4) Diabetes Current Visit: Yes Status: Acute Assessment and plan: Accu-Chek 4 times a day with sliding scale coverage Qualifiers: Qualified Code(s): E11.9 - Type 2 diabetes mellitus without complications (5) Tibia fracture Current Visit: No Status: Acute Qualifiers: Encounter type: initial encounter Tibia location: shaft Fracture type: closed Fracture morphology: comminuted Fracture alignment: displaced Laterality: right Qualified Code(s): S82.251A - Displaced comminuted fracture of shaft of right tibia, initial encounter for closed fracture (6) DM (diabetes mellitus), type 2 Current Visit: No Status: Chronic Qualifiers: Diabetes mellitus complication status: with hypoglycemia Diabetes mellitus complication detail: without coma 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 Qualified Code(s): E11.649 - Type 2 diabetes mellitus with hypoglycemia without coma; 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 Neal is a 61 year old male with diabetic neuropathy, HTN, HLD and history of CVA x2 after hip and shoulder surgeries. Patient was recently admitted with proximal tibia fibular fracture and was seen by Dr. Melissa who determined that at this time he would not be able to proceed with surgery due to swelling of soft tissue. A close outpatient orthopedic follow-up was recommended while keeping knee immobilized on the time. He was discharged home on DVT prophylaxis with Lovenox. Patient has history of frequent UTI but the last 6 months he did not have any UTI. During last admission enterococcus was noted in urine which is resistant to Cipro but sensitive to Levaquin and again resistant to Rocephin but sensitive to Fortaz. He has returned after he was found obtunded at home and it was thought that it could be due to overdose with narcotics. His caregiver noted that he has been a little bit slow in last few days and not eating or drinking well. Till September 2015 his renal function were normal but gradually they have been getting worse and this time creatinine is above 2.5. #1 altered mental status secondary to metabolic encephalopathy due to UTI and dehydration aggravated with narcotic use . Detailed discussion counseling provided #2 UTI with resistant Enterobacter which is sensitive to Levaquin does resistant to Cipro and the recent urine culture have shown some fungus. Consult infectious disease as Diflucan and Levaquin both with prolonged QT interval decided we want to seek if he need to treat this infection #3 proximal tibia fibular fracture patient needs should be immobilized all the time and Lovenox for DVT prophylaxis close follow-up with Dr. Melissa at a [facility] #4 diabetes hypertension dyslipidemia history of stroke and right hemiparesis with contractures noted in the right upper extremity patient is essentially bedridden #5 disposition considering comorbidity perhaps short-term SNF placement as desirable will discuss with disability case manager and consult physical therapy #6 acute on chronic renal failure stage III fluid challenge will be given and renal function will be monitored daily he has diabetes - Constitutional Vitals: Temp Pulse Resp BP Pulse Ox 98.5 F 75 18 157/74 97 09/21/16 16:20 09/21/16 16:20 09/21/16 16:20 09/21/16 16:20 09/21/16 16:20 General appearance: Present: A&O X 3, answers questions appropriately - Head Head exam: Present: atraumatic, normocephalic - Eye Eye exam: Present: PERRL, conjuntiva pink, sclera anicteric Pupils: Present: PERRL - Neck Neck exam general surgery: Present: supple, trachea midline. Absent: lymphadenopathy - Respiratory Respiratory exam: Present: CTAB. Absent: accessory muscle use, rales, rhonchi, wheezes - Cardiovascular Cardiovascular exam: Present: RRR, +S1, +S2. Absent: diastolic murmur, gallop, rubs, systolic murmur - GI/Abdominal GI/Abdominal exam: Present: normal bowel sounds, soft, no peritoneal signs. Absent: distended, tenderness - Extremities Exam Extremities exam: Present: warm, radial pulses palpable and symetrical. Absent : calf tenderness, cyanotic, pedal edema Additional comments: Left anterior knee swollen and ecchymosis restricted range of motion - Neurological Exam Neurological exam: Present: CN II-XII intact, oriented X3. Absent: pronater drift, facial droop, speech deficit Additional comments: Right hemiparesis with contracture of right upper extremity patient is essentially bedridden plantars up on the right side - Skin Skin exam: Present: dry, intact Internal Medicine: Result - Labs CBC & Chem 7: 09/21/16 02:46 09/21/16 02:46 Consult Discharge Plan - Plan Referrals: Cecil Carter MD [Partnered Physician] - 09/29/16 1:15 pm Ric Moreland DPM [Partnered Physician] - 10/30/16 10:45 am
[2016-09-21] MEDS ORDERED: *HR* Heparin 5,000 UNIT/ML VIAL SQ SCH (19:47)
[2016-09-21] MEDS: Insulin DETEMIR 100 UNIT/ML X5UNITS SQ SCH (22:19)
[2016-09-22] MEDS: Acetaminophen 325 MG TABLET PO PRN (04:42)
[2016-09-22] MEDS: *HR* Heparin 5,000 UNIT/ML VIAL SQ SCH ×3 (04:43→21:43)
[2016-09-22 06:41] LABS: Basophils % 0.3 %; Eosinophils # 0.4 K/mcL (0.0-0.6); Eosinophils % 6.5 %; Hematocrit 24.8 % (37.5-50.1); Hemoglobin 7.8 g/dL (12.9-16.9); Immature Granulocytes % 0.6 % (0-4); Lymphocytes # 1.4 K/mcL (0.6-4.6); Lymphocytes % 20.9 %; Mean Corpuscular HGB Conc 31.5 g/dL (31.6-35.5); Mean Corpuscular Hemoglobin 28.7 pg (28.0-33.3); Mean Corpuscular Volume 91.2 fL (83.0-100.0); Mean Platelet Volume 9.8 fL (9.4-12.4); Monocytes # 0.7 K/mcL (0.0-1.3); Neutrophils # 4.2 K/mcL (1.6-8.9); Platelet Count 200 K/mcL (140-400); Red Blood Count 2.72 M/mcL (4.19-5.50); Segmented Neutrophils % 61.7 %
[2016-09-22 06:54] LABS: Albumin 2.2 g/dL (3.5-5.0); Albumin/Globulin Ratio 0.7 (1.1-2.2); Bilirubin,Total 0.3 mg/dL (0.2-1.2); Calcium 8.2 mg/dL (8.6-10.8); Globulin 3.1 g/dL (2.4-3.5); Potassium 3.7 mEq/L (3.5-4.5); Total Protein 5.3 g/dL (6.0-8.3)
--- NOTE | 2016-09-22 07:44 | Venous Imaging Report ---
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 Left lower extremity: normal contralateral exam. Recommendations: Test completed on 09/21/2016 at 9:40:00 am. Findings Venous Duplex Results: Right: Venous imaging of the lower extremity reveals full patency and normal vessel compressibility of the right distal iliac, right common femoral, right superficial femoral, right popliteal, right posterior tibial, right peroneal, right great saphenous and right lesser saphenous. Doppler signals in the evaluated veins were normal. Left: Venous imaging of the lower extremity reveals full patency and normal vessel compressibility of the left common femoral. Doppler signals in the evaluated veins were normal. Prior Study: No prior study available for comparison. Lower Extremity Venous Duplex Side Vein Compress Spontaneous Flow Augment Diameter (cm) Depth (cm) Right Distal Iliac Normal Yes Phasic Yes Right Common Femoral Normal Yes Phasic Yes Right Superficial Femoral Normal Yes Phasic Yes Right Popliteal Normal Yes Phasic Yes Right Posterior Tibial Normal Yes Phasic Yes Right Peroneal Normal Yes Phasic Yes Right Great Saphenous Normal Yes Phasic Yes Right Lesser Saphenous Normal Yes Phasic Yes Left Common Femoral Normal Yes Phasic Yes Updated by Nomi Lake MD, FACS on 09/21/2016 5:19:52 PM Nomi Lake MD electronically signed on 09/21/2016 5:20:09 PM with status of Final
[2016-09-22] MEDS: Thiamine (B-1) 100 MG TABLET PO SCH (08:32)
[2016-09-22] MEDS: Insulin LISPRO 300 UNITS/3 ML VIAL SQ SCH ×4 (08:32→21:12)
[2016-09-22] MEDS: Lactobacillus 1 EACH CAP.SPRINK PO SCH ×2 (08:32→21:43)
[2016-09-22] MEDS: Zinc Sulfate 220 MG CAPSULE PO SCH (08:32)
[2016-09-22] MEDS: Sucralfate 1 GM TABLET PO SCH ×4 (08:32→21:43)
--- NOTE | 2016-09-22 09:01 | Infectious Disease Consult ---
Date of Encounter: 09/22/16 Time of Encounter: 08:59 Assessment and Plan (1) Severe sepsis Status: Acute Assessment and plan: Since admission he has met two SIRS criteria of leukocytosis, Creatinine > 0.5 above baseline, and altered mental status. He developed a low grade fever 100.6 F on 09/22/16 at 04:03 Labs on admission revealed a white blood count of 11.8, creatinine of 2.8, hemoglobin 8.9, stool occult was negative. Urinalysis revealed turbid appearance, moderate blood, large leukocyte esterase , too numerous to count white blood cells, moderate bacteria, many squamous epithelial cells, and many yeast. Urine culture 09/20/16 reveals yeast with > 100,000 colonies forming units/ML ( previous urine culture on 08/28/16 grew Enterobacter which was sensitive to Levaquin and urine culture on 03/06/15 grew nasir tropicalis 50,000 colonies forming units) Patient has been on Levaquin since 09/20/16. Recommendations: Patient has symptomatic UTI, dysuria, and urine culture with yeast > 100,000 colony forming units/ML. Possible pyelonephritis given UTI, KARI, and AMS. If condition does not improve, would recommend CT abd/plv with IV contrast if renal function improves or renal ultrasound Recommend continuing Levofloxacin 750mg PO q48h fr 14 days and Fluconazole 100mg PO daily until 10/06/16 Continue aggressive hydration and monitor renal function. (2) Urinary tract infection Status: Resolved Assessment and plan: H/o Enterobacter MDRO UTI 08/09/16, He recently completed a 10 day course of Levaquin on 09/08/16 for Enterobacter UTI. Patient was discharged from this facility on 09/19/2016 after sustaining a right tib-fib fracture that was non-operable at that time due to medical co- morbidiites and had a persistent UTI at that time. Patient wears diapers due to current bed-romano status. Levaquin was ordered upon discharged but patient did not get his prescription filled. Of note, colonoscopy performed in 2014 revealed rectal mucosal ulcerations, Diverticulosis, and evidence of colitis. Patient denies history of rectovesicular fistulas. Since admission he has met two SIRS criteria of leukocytosis, Creatinine > 0.5 above baseline, and altered mental status. He developed a low grade fever 100.6 F on 09/22/16 at 04:03 Labs on admission revealed a white blood count of 11.8, creatinine of 2.8, hemoglobin 8.9, stool occult was negative. Urinalysis revealed turbid appearance, moderate blood, large leukocyte esterase , too numerous to count white blood cells, moderate bacteria, many squamous epithelial cells, and many yeast. Urine culture 09/20/16 reveals yeast with > 100,000 colonies forming units/ML ( previous urine culture on 08/28/16 grew Enterobacter which was sensitive to Levaquin and urine culture on 03/06/15 grew nasir tropicalis 50,000 colonies forming units) Patient has been on Levaquin since 09/20/16. Recommendations: Patient has symptomatic UTI, dysuria, and urine culture with yeast > 100,000 colony forming units/ML. Possible pyelonephritis given UTI, KARI, and AMS. If condition does not improve, would recommend CT abd/plv with IV contrast if renal function improves or renal ultrasound Recommend continuing Levofloxacin 750mg PO q48h fr 14 days and Fluconazole 100mg PO daily until 10/06/16 Continue aggressive hydration and monitor renal function. Qualifiers: Urinary tract infection type: site unspecified Hematuria presence: with hematuria Qualified Code(s): N39.0 - Urinary tract infection, site not specified; R31.9 - Hematuria, unspecified (3) Acute metabolic encephalopathy Status: Resolved Assessment and plan: Secondary to UTI versus opioid overdose. (4) KARI (acute kidney injury) Status: Acute Assessment and plan: Management per primary team. Continue aggressive hydration and monitor renal function. (5) Tibia fracture Status: Acute Qualifiers: Encounter type: initial encounter Tibia location: shaft Fracture type: closed Fracture morphology: comminuted Fracture alignment: displaced Laterality: right Qualified Code(s): S82.251A - Displaced comminuted fracture of shaft of right tibia, initial encounter for closed fracture (6) Closed fibular fracture Status: Acute Qualifiers: Encounter type: initial encounter Fibula location: proximal Fracture morphology: other fracture Laterality: right Qualified Code(s): S82.831A - Other fracture of upper and lower end of right fibula, initial encounter for closed fracture (7) CKD (chronic kidney disease) stage 3, GFR 30-59 ml/min Status: Chronic Infectious Disease HPI - Data of Consult Consult date: 09/21/16 Requesting Physician: Marjorie Rubin MD Primary Care Provider: PCP NONE - Consult Narrative Reason for consult: Yeast in urine culture history of Enterobacter current UTI History of present illness: Mr. Neal is a 61 year old male that was admited on 09/20/16 for unresponsiveness. Infectious disease is consulted on 09/21/16 for Yeast in urine culture, history of Enterobacter, current UTI Mr. Neal is a 61 year old male with a PMH significant for insulin-dependent diabetes mellitus, chronic kidney disease stage III, CVA with residual left- sided weakness, left arm contracture, Enterobacter MDRO UTIs, hypertension, history of alcohol abuse, depression, esophagotomy status post esophageal rupture, and failure to thrive. He recently completed a 10 day course of Levaquin on 09/08/16 for Enterobacter UTI. Patient was discharged from this facility on 09/19/2016 after sustaining a right tib-fib fracture that was non- operable at that time due to medical co-morbidiites and had a persistent UTI at that time. Patient wears diapers due to current bed-romano status. Levaquin was ordered upon discharged but patient did not get his prescription filled. Of note , colonoscopy performed in 2014 revealed rectal mucosal ulcerations, Diverticulosis, and evidence of colitis. Patient denies history of rectovesicular fistulas. Since admission he has met one SIRS criteria of altered mental status. He developed a low grade fever 100.6 F on 09/22/16 at 04:03 Labs on admission revealed a white blood count of 11.8, creatinine of 2.8, hemoglobin 8.9, stool occult was negative. Urinalysis revealed turbid appearance, moderate blood, large leukocyte esterase, too numerous to count white blood cells, moderate bacteria, many squamous epithelial cells, and many yeast. Imaging: Chest x-ray revealed no acute cardiopulmonary process. Lower extremity ultrasound reveals no DVT bilaterally. Urine culture 09/20/16 reveals yeast with > 100,000 colonies forming units/ML ( previous urine culture on 08/28/16 grew Enterobacter which was sensitive to Levaquin and urine culture on 03/06/15 grew nasir tropicalis 50,000 colonies forming units) Patient has been on Levaquin since 09/20/16. Today the patient reports dysuria has now resolved and is currently back to baseline mentation. He denies fevers, chills, shortness of breath, chest pain, abdominal pain, nausea, vomiting, diarrhea, dysuria, or hematuria. Patient's private home health care nurse is at bedside. Patient states he does not want to go to rehab upon discharge. CC: Marjorie Rubin MD Past Med Surg Social Fam HX - Past Medical History Medical history: CVA, diabetes, hyperlipidemia, hypertension, other Psychiatric history: depression, prior suicide attempt - Past Surgical History Surgical History: hip replacement, orthopedic, other, other - Social History Smoking Status: Former smoker Smokeless Tobacco Status: No Alcohol use: none Drug use: none - Family History Mother Living Status: Still Living Hx Family Cardiac Disorders: Yes (A-fib s/p pacemaker) Hx Family Endocrine Disorder: Yes (DM) Father Living Status: Hx Family Cardiac Disorders: Yes (heart disease) Hx Family Respiratory Disorders: No Hx Family Cancer: No Hx Family GI Disorders: No Hx Family Endocrine Disorder: No Hx Family Neuromuscular Disorders: No Hx Family Neurologic Disorders: No Hx Family HEENT Disorders: No Hx Family Autoimmune Disorders: No Brother Living Status: Hx Family Cardiac Disorders: Yes (NH) Hx Family Endocrine Disorder: Yes (DM) Infectious Disease-CN:Meds Ferrous Sulfate 325 mg PO BID 10/09/14 [History] Omeprazole [PriLOSEC] 40 mg PO QAM 10/09/14 [History] Simvastatin [Zocor] 40 mg PO QPM 10/09/14 [History] Sucralfate [Carafate] 1 gm PO QID 10/09/14 [History] Thiamine (B-1) [Vitamin B-1] 100 mg PO QAM 10/09/14 [History] Zinc Sulfate 220 mg PO QAM 10/09/14 [History] Magnesium Oxide [Mag-Ox] 400 mg PO BID #60 tablet 03/09/15 [Rx] Mirtazapine [Remeron] 15 mg PO HS #30 tablet 03/09/15 [Rx] DULoxetine [Cymbalta] 20 mg PO DAILY 08/28/16 [History] Insulin Glargine,Hum.rec.anlog [Lantus Solostar] 10 unit SQ HS 08/28/16 [History ] Insulin LISPRO [Humalog Kwikpen U-100] 0 unit SQ TIDWM PRN 08/28/16 [History] Lactobacillus Acidophilus/Fos [Acidophilus Probiotic Tablet] 1 each PO BID 08/28 [History] Lisinopril [Zestril] 10 mg PO BID 08/28/16 [History] Loratadine [Claritin] 10 mg PO DAILY 08/28/16 [History] Multivitamin [Multi-Day Vitamins] 1 each PO DAILY 08/28/16 [History] hydrALAZINE [HydrALAZINE] 10 mg PO TID PRN 09/18/16 [History] Enoxaparin [Lovenox] 30 mg SQ DAILY #14 syr 09/19/16 [Rx] HYDROcodone/Acet 5/325 mg [[place] 5-325 mg] 1 tab PO Q6H PRN #20 tab 09/19/16 [Rx ] Allergies aspirin Allergy (Verified 09/20/16 15:04) Rash pseudoephedrine [From Sudafed] Allergy (Verified 09/20/16 15:04) Rash Review of systems: Travel: denies recent travel Animal exposure: denies Denies exposure to Sick contacts or small children. Diet: Denies ingestion of undercooked or raw meats. Dental: Denies recent dental procedures - Constitutional Constitutional: Present: fever(s). Absent: chills, night sweats, weight gain, weight loss - EENT Eyes: Absent: change in vision Nose, mouth and throat: Absent: nasal discharge, sore throat - Cardiovascular Cardiovascular: Present: leg edema (RLE edema s/p fall). Absent: chest pain, edema, palpitations - Respiratory Respiratory: Absent: hemoptysis, dyspnea on exertion, chest congestion, excessive phlegm production - Gastrointestinal Gastrointestinal: Absent: abdominal pain, bloating, change in bowel habits, diarrhea, nausea, vomiting - Genitourinary Genitourinary: dysuria, urinary urgency - Musculoskeletal Musculoskeletal: Present: limited range of motion, muscle weakness, myalgias - Integumentary Integumentary: Present: swelling (right knee). Absent: change in hair, change in nails, skin ulcer - Neurological Neurological: Present: confusion (resolved). Absent: loss of vision, numbness, paresthesias, syncope - Endocrine Endocrine: Absent: cold intolerance, heat intolerance, palpitations, polydipsia , polyphagia, polyuria Exam - Constitutional Vitals: Temp Pulse Resp BP Pulse Ox 98.1 F 74 15 150/80 98 09/22/16 07:36 09/22/16 07:36 09/22/16 07:36 09/22/16 07:36 09/22/16 07:36 General appearance: disheveled, no acute distress, no febrile Exam: Resting comfortably in bed with eyes closed. Patient will not open eyes during exam but answers questions appropriately and is cooperative with physical exam - Head Head exam: Present: atraumatic, normal inspection, normocephalic - Eye Additional comments: eyes closed, will not open eyes during exam - ENT ENT exam: Present: mucous membranes moist, normal oropharynx - Neck Neck exam: Present: normal inspection. Absent: lymphadenopathy, tenderness, thyromegaly - Respiratory Respiratory exam: Present: CTAB. Absent: rhonchi, wheezes - Cardiovascular Cardiovascular exam: Present: RRR, +S1, +S2. Absent: diastolic murmur, systolic murmur - GI/Abdominal GI/Abdominal exam: Present: normal bowel sounds, soft. Absent: guarding, rebound, rigid Additional comments: no olivares, diaper in place - Extremities Exam Extremities exam: Present: normal capillary refill, tenderness. Absent: normal inspection Additional comments: Right knee immobilizer and place, right arm contracture, decreased range of motion right lower extremity - Neurological Exam Neurological exam: Present: alert, oriented X3. Absent: altered Additional comments: no sensory deficit - Skin Skin exam: Present: dry, warm. Absent: erythema Additional comments: small 5mm scar over right knee, no surrounding erythema or edema. Infectious Disease CN: Results - Labs CBC & Chem 7: 09/22/16 06:30 09/22/16 06:30 Cultures: Microbiology 09/20/16 18:16 Urine Culture - Preliminary Urine,Clean Catch Yeast Species Consult Discharge Plan - Plan Referrals: Davy Wright MD [Partnered Physician] - 09/28/16 11:40 am Cecil Carter MD [Partnered Physician] - 09/29/16 1:15 pm Ric Moreland DPM [Partnered Physician] - 10/30/16 10:45 am - Attending Attestation I examined this patient and my medical decision-making was reviewed with the Resident Physician. I agree with the documented findings, disposition and treatment plan as described except to the extent set forth below. Patient is a 61 year old gentleman came in on 09/20 for unresponsiveness, we are seeing him for funguria. Patient with past medical history mentioned below was found unresponsive by caregiver. Patient was brought to [facility] where he was given Narcan and his mentation improved significantly. Patient with apparently history of CVA, IDDM and CKD stage 3 who has urinary incontinence who recently fell on September 19 and they found fracture of tibia/fibula. Patient was not a surgical candidate and was placed in an immobilizer and sent home. Patient also has a recent history of UTI with Enterobacter cloacae on multiple occasions and was treated with levofloxacin on every occasion. Most recently he had a 10 day course of levofloxacin from 08/29-09/08. This admission, patient had a fever 100.6F, no tachycardia, leukocytosis and KARI with Cr of 2.81. urine revealed pyuria and urine culture showing candiduria. Patient had a CXR which was not revealing. DVT work up was negative. Blood cultures were obtained and are pending. Patient was started empirically on levofloxacin 750mg iv q48 hrs. We are asked to see patient and make further recommendations. at this point will continue levofloxacin until cultures finalize start fluconazole 100mg daily (crcl around 35) Monitor for labs to finalize will continue to follow,
[2016-09-22] MEDS ORDERED: Fluconazole 100 MG TABLET PO ONE (14:30)
--- NOTE | 2016-09-22 14:37 | Internal Med Progress Note ---
Date of Encounter: 09/22/16 Time of Encounter: 14:35 - Assessment and plan (1) Acute metabolic encephalopathy Current Visit: Yes Status: Resolved (2) Urinary tract infection Current Visit: Yes Status: Resolved Qualifiers: Qualified Code(s): N39.0 - Urinary tract infection, site not specified (3) Bgbzs-of-awabigd kidney injury Current Visit: Yes Status: Acute Qualifiers: Acute renal failure type: unspecified Chronic kidney disease stage: stage 3 (moderate) Qualified Code(s): N17.9 - Acute kidney failure, unspecified; N18.3 - Chronic kidney disease, stage 3 (moderate) (4) Diabetes Current Visit: Yes Status: Acute Qualifiers: Qualified Code(s): E11.9 - Type 2 diabetes mellitus without complications (5) Tibia fracture Current Visit: No Status: Acute Qualifiers: Encounter type: initial encounter Tibia location: shaft Fracture type: closed Fracture morphology: comminuted Fracture alignment: displaced Laterality: right Qualified Code(s): S82.251A - Displaced comminuted fracture of shaft of right tibia, initial encounter for closed fracture (6) DM (diabetes mellitus), type 2 Current Visit: No Status: Chronic Qualifiers: Diabetes mellitus complication status: with hypoglycemia Diabetes mellitus complication detail: without coma Diabetes mellitus alf insulin use: with alf use Qualified Code(s): E11.649 - Type 2 diabetes mellitus with hypoglycemia without coma; 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 Neal is a 61 year old male with diabetic neuropathy, HTN, HLD and history of CVA x2 after hip and shoulder surgeries. Patient was recently admitted with proximal tibia fibular fracture and was seen by Dr. Melissa who determined that at this time he would not be able to proceed with surgery due to swelling of soft tissue. A close outpatient orthopedic follow-up was recommended while keeping knee immobilized on the time. He was discharged home on DVT prophylaxis with Lovenox. Patient has history of frequent UTI but the last 6 months he did not have any UTI. During last admission enterococcus was noted in urine which is resistant to Cipro but sensitive to Levaquin and again resistant to Rocephin but sensitive to Fortaz. He has returned after he was found obtunded at home and it was thought that it could be due to overdose with narcotics. His caregiver noted that he has been a little bit slow in last few days and not eating or drinking well. Till September 2015 his renal function were normal but gradually they have been getting worse and this time creatinine is above 2.5. #1 altered mental status secondary to metabolic encephalopathy due to UTI and dehydration aggravated with narcotic use . Detailed discussion counseling provided #2 UTI with resistant Enterobacter which is sensitive to Levaquin does resistant to Cipro and the recent urine culture have shown some fungus. Consult infectious disease as Diflucan and Levaquin both with prolonged QT interval decided we want to seek if he need to treat this infection #3 proximal tibia fibular fracture patient needs should be immobilized all the time and Lovenox for DVT prophylaxis close follow-up with Dr. Melissa [facility] a [facility] #4 diabetes hypertension dyslipidemia history of stroke and right hemiparesis with contractures noted in the right upper extremity patient is essentially bedridden #5 disposition considering comorbidity perhaps short-term SNF placement as desirable will discuss with case management social worker and consult physical therapy #6 acute on chronic renal failure stage III fluid challenge will be given and renal function will be monitored daily he has diabetes 8/4 patient has complicated UTI. doing well. Close to his baseline. He refused to go to residential. Infectious disease has recommended to start Diflucan 200 daily. I will check EKG in the morning to measure the QT interval. Increase IV fluid 200 mL an hour and daily check of CBC and a BMP. He has chronic anemia and hemoglobin is only borderline. Detailed discussion with patient and caregiver. Strongly recommend to go to residential. Patient was explained possible risk complication treatment option by his caregiver was present and they showed good understanding. Patient's blood sugar were elevated therefore R Reid increased to 25 units at night - Constitutional Vitals: Temp Pulse Resp BP Pulse Ox 99.6 F 72 15 134/70 96 09/22/16 11:58 09/22/16 11:58 09/22/16 11:58 09/22/16 11:58 09/22/16 11:58 General appearance: Present: A&O X 3, answers questions appropriately - Head Head exam: Present: atraumatic, normocephalic - Eye Eye exam: Present: PERRL, conjuntiva pink, sclera anicteric Pupils: Present: PERRL - Neck Neck exam general surgery: Present: supple, trachea midline. Absent: lymphadenopathy - Respiratory Respiratory exam: Present: CTAB. Absent: accessory muscle use, rales, rhonchi, wheezes - Cardiovascular Cardiovascular exam: Present: RRR, +S1, +S2. Absent: diastolic murmur, gallop, rubs, systolic murmur - GI/Abdominal GI/Abdominal exam: Present: normal bowel sounds, soft, no peritoneal signs. Absent: distended, tenderness - Extremities Exam Extremities exam: Present: warm, radial pulses palpable and symetrical. Absent : calf tenderness, cyanotic, pedal edema Additional comments: Right upper extremity contracture - Neurological Exam Neurological exam: Present: CN II-XII intact, oriented X3. Absent: pronater drift, facial droop, speech deficit Additional comments: Right hemiparesis and contracture of right upper extremity secondary to stroke 2 - Skin Skin exam: Present: dry, intact Internal Medicine: Result - Labs CBC & Chem 7: 09/22/16 06:30 09/22/16 06:30 Labs: Short CBC 09/22/16 Range/Units 06:30 WBC 6.8 (4.3-11.1) K/mcL Hgb 7.8 L (12.9-16.9) g/dL Hct 24.8 L (37.5-50.1) % Plt Count 200 (140-400) K/mcL Neutrophils # 4.2 (1.6-8.9) K/mcL BMP 09/22/16 06:30 Sodium 138 Potassium 3.7 Chloride 105 Carbon Dioxide 26 BUN 32 H Creatinine 1.88 H Glucose 238 H Calcium 8.2 L Liver Function 09/22/16 Range/Units 06:30 Total Bilirubin 0.3 (0.2-1.2) mg/dL AST 12 (5-34) Units/L ALT 10 (0-55) Units/L Alkaline Phosphatase 140 H (38-126) Units/L Albumin 2.2 L (3.5-5.0) g/dL Consult Discharge Plan - Plan Referrals: Davy Wright MD [Partnered Physician] - 09/28/16 11:40 am Cecil Carter MD [Partnered Physician] - 09/29/16 1:15 pm Ric Moreland DPM [Partnered Physician] - 10/30/16 10:45 am
[2016-09-22] MEDS ORDERED: Fluconazole 100 MG TABLET PO SCH ×2 (15:00→20:00)
[2016-09-22] MEDS: 0.9 % Sodium Chloride 1,000 ML IVC SCH (17:10)
[2016-09-22] MEDS ORDERED: Insulin DETEMIR 100 UNIT/ML X5UNITS SQ SCH (21:00)
[2016-09-22] MEDS: Levofloxacin 750 MG/150 ML 750 MG/150 ML BAG IVPB SCH (21:47)
[2016-09-23] MEDS: 0.9 % Sodium Chloride 1,000 ML IVC SCH (03:38)
[2016-09-23 04:49] LABS: Basophils % 0.3 %; Eosinophils # 0.3 K/mcL (0.0-0.6); Eosinophils % 3.8 %; Hematocrit 27.5 % (37.5-50.1); Hemoglobin 8.8 g/dL (12.9-16.9); Immature Granulocytes % 0.5 % (0-4); Lymphocytes # 1.4 K/mcL (0.6-4.6); Lymphocytes % 15.8 %; Mean Corpuscular Volume 90.8 fL (83.0-100.0); Mean Platelet Volume 10.4 fL (9.4-12.4); Monocytes # 0.8 K/mcL (0.0-1.3); Monocytes % 8.7 %; Neutrophils # 6.1 K/mcL (1.6-8.9); Platelet Count 234 K/mcL (140-400); Red Blood Count 3.03 M/mcL (4.19-5.50); Red Cell Distribution Width 13.9 % (11.5-14.5); Segmented Neutrophils % 70.9 %
[2016-09-23 04:50] LABS: Albumin 2.2 g/dL (3.5-5.0); Albumin/Globulin Ratio 0.6 (1.1-2.2); Bilirubin,Total 0.4 mg/dL (0.2-1.2); Calcium 8.4 mg/dL (8.6-10.8); Globulin 3.5 g/dL (2.4-3.5); Potassium 3.6 mEq/L (3.5-4.5); Total Protein 5.7 g/dL (6.0-8.3)
[2016-09-23] MEDS: *HR* Heparin 5,000 UNIT/ML VIAL SQ SCH (06:01)
[2016-09-23] MEDS: Zinc Sulfate 220 MG CAPSULE PO SCH (08:26)
[2016-09-23] MEDS: Thiamine (B-1) 100 MG TABLET PO SCH (08:27)
[2016-09-23] MEDS: Sucralfate 1 GM TABLET PO SCH ×2 (08:27→13:43)
[2016-09-23] MEDS: Lactobacillus 1 EACH CAP.SPRINK PO SCH (08:27)
[2016-09-23] MEDS: Insulin LISPRO 300 UNITS/3 ML VIAL SQ SCH ×2 (08:30→12:17)
[2016-09-23] MEDS: Acetaminophen 325 MG TABLET PO PRN ×2 (08:40→15:35)
[2016-09-23] MEDS ORDERED: Fluconazole 100 MG TABLET PO SCH ×2 (09:00→18:00)
[2016-09-23 11:46] VITALS: BP 143/73
--- NOTE | 2016-09-23 11:56 | Discharge Summary ---
Date of Encounter: 09/23/16 Time of Encounter: 11:51 - Discharge Diagnosis (1) Acute metabolic encephalopathy Priority: Primary Status: Resolved (2) Urinary tract infection Priority: Primary Status: Resolved Qualifiers: Urinary tract infection type: site unspecified Hematuria presence: with hematuria Qualified Code(s): N39.0 - Urinary tract infection, site not specified; R31.9 - Hematuria, unspecified (3) Uztlq-ur-yjfihhe kidney injury Priority: Secondary Status: Acute Qualifiers: Acute renal failure type: unspecified Chronic kidney disease stage: stage 3 (moderate) Qualified Code(s): N17.9 - Acute kidney failure, unspecified; N18.3 - Chronic kidney disease, stage 3 (moderate) (4) Diabetes Priority: Secondary Status: Acute Qualifiers: Qualified Code(s): E11.9 - Type 2 diabetes mellitus without complications (5) Tibia fracture Priority: Secondary Status: Acute Qualifiers: Encounter type: initial encounter Tibia location: shaft Fracture type: closed Fracture morphology: comminuted Fracture alignment: displaced Laterality: right Qualified Code(s): S82.251A - Displaced comminuted fracture of shaft of right tibia, initial encounter for closed fracture (6) DM (diabetes mellitus), type 2 Priority: Secondary Status: Chronic Qualifiers: Diabetes mellitus complication status: with hypoglycemia Diabetes mellitus complication detail: without coma 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 insulin use: with middle or intermediate school principal use Qualified Code(s): E11.649 - Type 2 diabetes mellitus with hypoglycemia without coma; Z79.4 - skilled nursing (current) use of insulin (7) HTN (hypertension) Priority: Secondary Status: Chronic Qualifiers: Hypertension type: essential hypertension Qualified Code(s): I10 - Essential (primary) hypertension (8) Severe protein-calorie malnutrition Priority: Secondary Status: Chronic (9) Dehydration Priority: Secondary Status: Resolved (10) DVT prophylaxis Priority: Secondary Status: Acute - Discharge Medications Prescriptions: Ciprofloxacin HCl 750 mg PO 3XW #7 tablet Fluconazole [Diflucan] 100 mg PO Q24H #14 tab Home Medications: Ferrous Sulfate 325 mg PO BID 10/09/14 [History] Omeprazole [PriLOSEC] 40 mg PO QAM 10/09/14 [History] Simvastatin [Zocor] 40 mg PO QPM 10/09/14 [History] Sucralfate [Carafate] 1 gm PO QID 10/09/14 [History] Thiamine (B-1) [Vitamin B-1] 100 mg PO QAM 10/09/14 [History] Zinc Sulfate 220 mg PO QAM 10/09/14 [History] Magnesium Oxide [Mag-Ox] 400 mg PO BID #60 tablet 03/09/15 [Rx] Mirtazapine [Remeron] 15 mg PO HS #30 tablet 03/09/15 [Rx] DULoxetine [Cymbalta] 20 mg PO DAILY 08/28/16 [History] Insulin Glargine,Hum.rec.anlog [Lantus Solostar] 10 unit SQ HS 08/28/16 [History ] Insulin LISPRO [Humalog Kwikpen U-100] 0 unit SQ TIDWM PRN 08/28/16 [History] Lactobacillus Acidophilus/Fos [Acidophilus Probiotic Tablet] 1 each PO BID 08/28 [History] Lisinopril [Zestril] 10 mg PO BID 08/28/16 [History] Loratadine [Claritin] 10 mg PO DAILY 08/28/16 [History] Multivitamin [Multi-Day Vitamins] 1 each PO DAILY 08/28/16 [History] hydrALAZINE [HydrALAZINE] 10 mg PO TID PRN 09/18/16 [History] Enoxaparin [Lovenox] 30 mg SQ DAILY #14 syr 09/19/16 [Rx] HYDROcodone/Acet 5/325 mg [[place] 5-325 mg] 1 tab PO Q6H PRN #20 tab 09/19/16 [Rx ] Acetaminophen [Tylenol] 650 mg PO Q6HR PRN tab 09/23/16 [Rx] Ciprofloxacin HCl 750 mg PO 3XW #7 tablet 09/23/16 [Rx] Fluconazole [Diflucan] 100 mg PO Q24H #14 tab 09/23/16 [Rx] Allergies/Adverse Reactions: Allergies aspirin Allergy (Verified 09/20/16 15:04) Rash pseudoephedrine [From Sudafed] Allergy (Verified 09/20/16 15:04) Rash Date of admission: 09/21/16 04:26 Primary care physician: PCP NONE Consults: 09/21/16 12:01 Consult to Supervisor [employer] [CONS] Routine Reason for SW Consult: transport 09/21/16 17:03 Consult to Infectious Diseases [CONS] Routine Consulting Provider: Infectious Disease [place] Reason for Consult: Yeast in urine culture history of Enterobacter current UTI Time Notified: 17:04 Call Completed: No Discharging clinician: Marjorie Rubin Anticipated date of discharge: 09/23/16 - Patient Status Disposition: Home Health Service Condition: Fair Overall status at discharge: patient is progressing back to baseline - Discharge Instructions Instructions: Ciprofloxacin (By mouth), Fluconazole (By mouth), Urinary Tract Infection in Men (DC), Diabetes Mellitus Type 2 in Adults (DC), Sepsis (DC) Follow Up With: Davy Wright MD [Partnered Physician] - 09/28/16 11:40 am Cecil Carter MD [Partnered Physician] - 09/29/16 1:15 pm Ric Moreland DPM [Partnered Physician] - 10/30/16 10:45 am - Diet and Activity Activity: resume usual activities as tolerated Diet: advance to your usual diet Hospital course: Mr. Neal is a 61 year old male with diabetic neuropathy, HTN, HLD and history of CVA x2 after hip and shoulder surgeries. Patient was recently admitted with proximal tibia fibular fracture and was seen by Dr. Melissa who determined that at this time he would not be able to proceed with surgery due to swelling of soft tissue. A close outpatient orthopedic follow-up was recommended while keeping knee immobilized on the time. He was discharged home on DVT prophylaxis with Lovenox. Patient has history of frequent UTI but the last 6 months he did not have any UTI. During last admission enterococcus was noted in urine which is resistant to Cipro but sensitive to Levaquin and again resistant to Rocephin but sensitive to Fortaz. He has returned after he was found obtunded at home and it was thought that it could be due to overdose with narcotics. His caregiver noted that he has been a little bit slow in last few days and not eating or drinking well. Till September 2015 his renal function were normal but gradually they have been getting worse and this time creatinine is above 2.5. #1 altered mental status secondary to metabolic encephalopathy due to UTI and dehydration aggravated with narcotic use . Detailed discussion counseling provided. At this time is awake and alert and returned to his baseline. #2 UTI with resistant Enterobacter which is sensitive to Levaquin does resistant to Cipro and the recent urine culture have shown some fungus. Infectious disease has recommended to treat it for 2 weeks with by mouth Levaquin 750 every 48 hours.Also has urinary candidiasis. Infectious disease has recommended to treat it with Diflucan 200 mg daily for 2 weeks. #3 proximal tibia fibular fracture patient needs should be immobilized all the time and Lovenox for DVT prophylaxis close follow-up with Dr. [facility] #4 diabetes hypertension dyslipidemia history of stroke and right hemiparesis with contractures noted in the right upper extremity patient is essentially bedridden #5 disposition considering comorbidity perhaps short-term SNF placement as desirable will discuss with director of casework services and consult physical therapy #6 acute on chronic renal failure stage III fluid challenge will be given and renal function will be monitored daily he has diabetesCurrently his renal function are back to his baseline. This morning his creatinine was 1.7. - Time Spent with Patient Total time spent providing and/or coordinating discharge services: Greater than 30 minutes - Constitutional Vitals: Temp Pulse Resp BP Pulse Ox 99.2 F 72 18 143/73 96 09/23/16 11:28 09/23/16 11:28 09/23/16 11:28 09/23/16 11:28 09/23/16 11:28 General appearance: Present: A&O X 3, answers questions appropriately - Head Head exam: Present: atraumatic, normocephalic - Eye Eye exam: Present: PERRL, conjuntiva pink, sclera anicteric Pupils: Present: PERRL - Neck Neck exam general surgery: Present: supple, trachea midline. Absent: lymphadenopathy - Respiratory Respiratory exam: Present: CTAB. Absent: accessory muscle use, rales, rhonchi, wheezes - Cardiovascular Cardiovascular exam: Present: RRR, +S1, +S2. Absent: diastolic murmur, gallop, rubs, systolic murmur - GI/Abdominal GI/Abdominal exam: Present: normal bowel sounds, soft, no peritoneal signs. Absent: distended, tenderness - Extremities Exam Extremities exam: Present: warm, radial pulses palpable and symetrical. Absent : calf tenderness, cyanotic, pedal edema - Neurological Exam Neurological exam: Present: CN II-XII intact, oriented X3, no focal deficits. Absent: pronater drift, facial droop, speech deficit Additional comments: Right hemiparesis and contracture of right upper extremity - Skin Skin exam: Present: dry, intact
--- NOTE | 2016-09-23 12:10 | Physician Discharge Referral ---
Home Health/Hosp Referral Info Transfer to: Home Health Attending Provider: stefani Provider in Charge Post Discharge: PCP - Diagnosis (1) Acute metabolic encephalopathy Status: Resolved (2) Urinary tract infection Status: Resolved (3) [id number] kidney injury Status: Acute (4) Diabetes Status: Acute (5) Tibia fracture Status: Acute (6) DM (diabetes mellitus), type 2 Status: Chronic (7) HTN (hypertension) Status: Chronic (8) Severe protein-calorie malnutrition Status: Chronic (9) Dehydration Status: Resolved (10) DVT prophylaxis Status: Acute - Respiratory Orders Smoking Cessation: Smoking cessation has been advised. For more information, call the [place] Tobacco Quit Line at 2-103-LKUC-NOW. - Diet/Nutrition Diet/Nutrition: List: ADA 1800 plus renal - Activity Activity: List: wheelchair with support - Services Needed Following services are medically necessary services: Nursing, Home Health Aide, Physical Therapy, Occupational Therapy - Transfer Medications Prescriptions: Ciprofloxacin HCl 750 mg PO 3XW #7 tablet Fluconazole [Diflucan] 100 mg PO Q24H #14 tab Home Medications: Ferrous Sulfate 325 mg PO BID 10/09/14 [History] Omeprazole [PriLOSEC] 40 mg PO QAM 10/09/14 [History] Simvastatin [Zocor] 40 mg PO QPM 10/09/14 [History] Sucralfate [Carafate] 1 gm PO QID 10/09/14 [History] Thiamine (B-1) [Vitamin B-1] 100 mg PO QAM 10/09/14 [History] Zinc Sulfate 220 mg PO QAM 10/09/14 [History] Magnesium Oxide [Mag-Ox] 400 mg PO BID #60 tablet 03/09/15 [Rx] Mirtazapine [Remeron] 15 mg PO HS #30 tablet 03/09/15 [Rx] DULoxetine [Cymbalta] 20 mg PO DAILY 08/28/16 [History] Insulin Glargine,Hum.rec.anlog [Lantus Solostar] 10 unit SQ HS 08/28/16 [History ] Insulin LISPRO [Humalog Kwikpen U-100] 0 unit SQ TIDWM PRN 08/28/16 [History] Lactobacillus Acidophilus/Fos [Acidophilus Probiotic Tablet] 1 each PO BID 08/28 [History] Lisinopril [Zestril] 10 mg PO BID 08/28/16 [History] Loratadine [Claritin] 10 mg PO DAILY 08/28/16 [History] Multivitamin [Multi-Day Vitamins] 1 each PO DAILY 08/28/16 [History] hydrALAZINE [HydrALAZINE] 10 mg PO TID PRN 09/18/16 [History] Enoxaparin [Lovenox] 30 mg SQ DAILY #14 syr 09/19/16 [Rx] HYDROcodone/Acet 5/325 mg [[place] 5-325 mg] 1 tab PO Q6H PRN #20 tab 09/19/16 [Rx ] Acetaminophen [Tylenol] 650 mg PO Q6HR PRN tab 09/23/16 [Rx] Ciprofloxacin HCl 750 mg PO 3XW #7 tablet 09/23/16 [Rx] Fluconazole [Diflucan] 100 mg PO Q24H #14 tab 09/23/16 [Rx] Allergies/Adverse Reactions: Allergies aspirin Allergy (Verified 09/20/16 15:04) Rash pseudoephedrine [From Sudafed] Allergy (Verified 09/20/16 15:04) Rash Certification: Further, I certify that my clinical findings support that this patient is homebound (i.e. absences from home require considerable and taxing effort and are for medical reasons or scientologist services or infrequently or short duration when for other reasons) because: Homebound Reason: Patient requires assistance of a person or device to safely leave home Attestation: My signature below is to certify that this patient is under my care and that I, or nurse practitioner, or a physician's university administrative assistant working with me, has a face-to -face encounter with this patient.
== END 2016-09-23 16:20 | disposition home health service (06) | DRG 871 ==
LOC: 2NENU 15:02 → EMEROO 15:02 → 2NENU 19:50
PROVIDERS: ADMIT Internal Medicine; ATTEND Internal Medicine

== ENCOUNTER 2017-02-15 02:36 | Inpatient (IN) ==
[2017-02-15] MEDS ORDERED: 0.9 % Sodium Chloride 500 ML IVC ONE (02:43)
--- NOTE | 2017-02-15 02:48 | Emergency Department Note ---
Disposition Clinical Impression: Hyperkalemia Acute renal failure Qualifiers: Acute renal failure type: unspecified Qualified Code(s): N17.9 - Acute kidney failure, unspecified Disposition: Admitted As Inpatient Condition: Fair Referrals: Cecil Carter MD [Primary Care Provider] - Forms: ED Satisfaction Letter, Work/School Release Time of Disposition: 06:36 General Adult HPI - General Chief complaint: ED General Medical Stated complaint: Hyperkalemia Time Seen by Provider: 02/15/17 02:41 Source: patient, EMS Limitations: no limitations Nursing Notes Reviewed: Yes Vital Signs Reviewed: Yes - History of Present Illness HPI Narrative: 61 y/o male who lives at a local nursing facility who is there due to prior stroke. He is on amlodipine, lisinopril, omeprazole, mirtazapine, insulin, and duloxetine. He was admitted recently due to DKA. Due to recent decreased urine output basic labs were obtained at a local [facility]dc. he was found to have an elevated creatinine and elevated potassium so was sent to the ED. He has no complaints. He states that he feels fine. Pain Scale: 0 Improves with: nothing Worsens with: nothing Associated symptoms: Reports: denies other symptoms Treatments Prior to Arrival: none - Related Data Home Medications Medication Instructions Recorded Confirmed DULoxetine [Cymbalta] 20 mg PO DAILY 08/28/16 11/28/16 Cyclosporine [Restasis] 1 drop OP BID 11/28/16 11/28/16 Erythromycin OPTH Oint 1 appl BOTH EYES QID 11/28/16 11/28/16 Glucagon,Human Recombinant 1 mg IJ AD PRN 11/28/16 11/28/16 [Glucagen] Insulin Glargine,Hum.rec.anlog 10 unit SQ QPM 11/28/16 11/28/16 [Basaglar Kwikpen U-100] Insulin LISPRO [HumaLOG] 0 units SQ TIDWM PRN 11/28/16 11/28/16 Loratadine [Allergy Relief] 10 mg PO DAILY PRN 11/28/16 11/28/16 Mirtazapine [Remeron] 15 mg PO HS 11/28/16 11/28/16 Previous Rx's Medication Instructions Recorded Lisinopril [Zestril] 5 mg PO DAILY #0 tablet 12/03/16 Omeprazole [PriLOSEC] 40 mg PO BIDAC capsule. 12/03/16 Ondansetron [Zofran] 4 mg IVP Q8HR PRN vial 12/03/16 Sucralfate [Carafate] 1 gm PO TID #1 bottle 12/03/16 amLODIPine [Norvasc] 10 mg PO DAILY #0 tablet 12/03/16 Allergies Allergy/AdvReac Type Severity Reaction Status Date / Time aspirin Allergy Rash Verified 02/15/17 02:44 pseudoephedrine Allergy Rash Verified 02/15/17 02:44 [From [facility]] All systems ED: reviewed and negative except as stated. Constitutional: Denies: fever ENT ED: Denies: throat pain Cardiovascular: Denies: chest pain Respiratory: Denies: cough Gastrointestinal: Denies: abdominal pain Integumentary: Denies: rash Past Medical History - Past Medical History Medical history: Reports: CVA, dementia, diabetes, hyperlipidemia, hypertension , other Surgical history: Reports: hip replacement, orthopedic, other, other Psychiatric history: Reports: depression, prior suicide attempt - Social History Smoking Status: Never smoker Smokeless Tobacco Status: No Alcohol use: Reports: none Drug use: Reports: none Physical Exam - General Limitations: no limitations General appearance: alert, in no apparent distress - Head Head exam: atraumatic - Eye Eye exam: Present: normal appearance, PERRL - ENT ENT exam: normal exam - Neck Neck exam: Present: normal inspection - Chest Chest inspection: Present: normal inspection - Respiratory Respiratory exam: Present: normal lung sounds bilaterally. Absent: respiratory distress - Cardiovascular Cardiovascular exam: Present: regular rate, normal rhythm - Abdominal Exam Abdominal exam: Present: soft, Non-Tender - Extremities Exam Extremities exam: Present: normal inspection - Neurological Exam Neurological exam: Present: alert - Psychiatric Psychiatric exam: Present: normal affect, normal mood - Skin Skin exam: Present: warm, dry Course Course Narrative: EKG shows NSR w/o peaked waves or widened QRS. Chronic right sided weakness from prior stroke. Potassium and creatinine are elevated. Will give insulin w/ dextrose, kayexelate, and calcium gluconate. Will speak with nephrology. Bedside u/s does not show a distended bladder. He is tired and sleepy. He denies any history of kidney disease. He denies ever seeing a clerk entry level. Spoke with Dr Loyd who agreed to see the patient. Accepted by Dr Mcgee Vital Signs Temperature 0 F L 02/15/17 02:37 Pulse Rate 61 02/15/17 02:37 Respiratory Rate 16 02/15/17 02:37 Blood Pressure 100/57 02/15/17 02:37 O2 Sat by Pulse Oximetry 99 02/15/17 02:37 Temperature 0 F L 02/15/17 02:37 Pulse Rate 52 02/15/17 06:28 Respiratory Rate 16 02/15/17 06:28 Blood Pressure 89/62 02/15/17 06:28 O2 Sat by Pulse Oximetry 100 02/15/17 06:02 Oxygen Delivery Oxygen Delivery Room Air Medical Decision Making - Medical Records Medical records reviewed: Yes I reviewed the patient's medical records. - Lab Data Lab results reviewed: Yes I reviewed the patient's lab results. Result diagrams: 02/15/17 02:52 02/15/17 02:52 Lab Results 02/15/17 02/15/17 02/15/17 Range/Units 02:52 02:52 02:52 WBC 12.6 H (4.3-11.1) K/mcL RBC 3.57 L (4.19-5.50) M/mcL Hgb 10.7 L (12.9-16.9) g/dL Hct 33.3 L (37.5-50.1) % MCV 93.3 (83.0-100.0) fL MCH 30.0 (28.0-33.3) pg MCHC 32.1 (31.6-35.5) g/dL RDW 16.6 H (11.5-14.5) % Plt Count 225 (140-400) K/mcL MPV 10.4 (9.4-12.4) fL Immature Gran % 0.6 (0-4) % Seg Neutrophils % 84.1 % Lymphocytes % 8.9 % Monocytes % 4.1 % Eosinophils % 2.1 % Basophils % 0.2 % Neutrophils # 10.6 H (1.6-8.9) K/mcL Lymphocytes # 1.1 (0.6-4.6) K/mcL Monocytes # 0.5 (0.0-1.3) K/mcL Eosinophils # 0.3 (0.0-0.6) K/mcL Basophils # 0.0 (0.0-0.2) K/mcL PT 10.7 (9.4-12.1) Seconds INR 1.0 APTT 47.8 H (26.0-36.0) Seconds Sodium 133 L (136-145) mEq/L Potassium 6.9 H* (3.5-5.1) mEq/L Chloride 111 H (98-107) mEq/L Carbon Dioxide 12 L (23-29) mEq/L BUN > 130 H (8-23) mg/dL Creatinine 8.84 H (0.70-1.30) mg/dL Est GFR ( Amer) 7 L (> 60) Est GFR (Non-Af Amer) 6 L (> 60) BUN/Creatinine Ratio TNP Glucose 154 H (70-105) mg/dL Calculated Osmolality TNP Calcium 9.3 (8.6-10.3) mg/dL Troponin I (< 0.04) ng/mL 02/15/17 Range/Units 02:52 WBC (4.3-11.1) K/mcL RBC (4.19-5.50) M/mcL Hgb (12.9-16.9) g/dL Hct (37.5-50.1) % MCV (83.0-100.0) fL MCH (28.0-33.3) pg MCHC (31.6-35.5) g/dL RDW (11.5-14.5) % Plt Count (140-400) K/mcL MPV (9.4-12.4) fL Immature Gran % (0-4) % Seg Neutrophils % % Lymphocytes % % Monocytes % % Eosinophils % % Basophils % % Neutrophils # (1.6-8.9) K/mcL Lymphocytes # (0.6-4.6) K/mcL Monocytes # (0.0-1.3) K/mcL Eosinophils # (0.0-0.6) K/mcL Basophils # (0.0-0.2) K/mcL PT (9.4-12.1) Seconds INR APTT (26.0-36.0) Seconds Sodium (136-145) mEq/L Potassium (3.5-5.1) mEq/L Chloride (98-107) mEq/L Carbon Dioxide (23-29) mEq/L BUN (8-23) mg/dL Creatinine (0.70-1.30) mg/dL Est GFR ( Amer) (> 60) Est GFR (Non-Af Amer) (> 60) BUN/Creatinine Ratio Glucose (70-105) mg/dL Calculated Osmolality Calcium (8.6-10.3) mg/dL Troponin I < 0.03 (< 0.04) ng/mL - Radiology Data Radiology results reviewed: Yes I reviewed the patient's radiology results. - EKG Data EKG #1 EKG attestation: Yes I reviewed and interpreted this EKG. EKG shows normal: sinus rhythm Rate: normal Rhythm: NSR (First degree AV block) [place]/QRS: normal When compared to previous EKG there are: no significant changes Interpretation: no acute changes Critical Care Time Critical Care Time: Yes Total Critical Care Time: 35 Attestation: Critical care performed: Time is exclusive of separately billable procedures. Time includes: direct patient care, patient reassessment, coordination of patient care, interpretation of data (laboratory data, radiology data, and respiratory data), review of patient's medical records, medical consultation and documentation of patient care. Procedures included in critical care time: Procedures excluded from critical care time: Attestation Statement - Attestation Attestation: I, Misael Roa DO, examined this patient [id number] and my medical decision-making was reviewed with Dr. Meet Morel, Resident Physician. I agree with the documented findings, disposition and treatment plan as described except to the extent set forth below. Please see my progress notes for details. Patient presents to emergency room with abnormal labs. Sent from nursing facility. Patient denies any other symptoms or complaints. Patient on presentation was resting in the bed. He is a thin frail appearing gentleman at this time. Denies any complaint of chest pain shortness of breath headache vision changes nausea vomiting or diarrhea. He has not started any new medications as on a trauma or injury. Patient denies any other symptom presentation this time. Labs were called into the hospital from the nursing facility. There is concern for possible poor renal function as well as hyperkalemia. Repeat laboratory workup ordered at this time confirming a potassium of 6.9 on the kidney function of 8.8. These are all new issues with the patient. Medication playing into this is lisinopril. Patient will be provided with calcium gluconate, insulin and dextrose, Kayexalate in the emergency room. Admission passes will be difficult completed after clerk entry level consult. Patient may need intervention in the hospital including temporary dialysis. Patient does have a BUN/creatinine is good in the 130s but is not currently anemic. Patient is mentating appropriately. EKG does not show any acute signs of widening of the QRS complex or hyperacute T waves. hemodynamically stable. 35 minutes of critical care participation secondary to hyperkalemia 0635 Patient has maintained pulses and mentation here. No acute changes. Hyperkalemia was treated. Nephrology consult. Patient's blood pressure has been low while sleeping. Stress dose steroids provided at this time. Patient will be admitted for definitive management.
[2017-02-15 03:02] LABS: Basophils % 0.2 %; Eosinophils # 0.3 K/mcL (0.0-0.6); Eosinophils % 2.1 %; Hematocrit 33.3 % (37.5-50.1); Hemoglobin 10.7 g/dL (12.9-16.9); Immature Granulocytes % 0.6 % (0-4); Lymphocytes # 1.1 K/mcL (0.6-4.6); Lymphocytes % 8.9 %; Mean Corpuscular HGB Conc 32.1 g/dL (31.6-35.5); Mean Corpuscular Volume 93.3 fL (83.0-100.0); Mean Platelet Volume 10.4 fL (9.4-12.4); Monocytes # 0.5 K/mcL (0.0-1.3); Monocytes % 4.1 %; Neutrophils # 10.6 K/mcL (1.6-8.9); Platelet Count 225 K/mcL (140-400); Red Blood Count 3.57 M/mcL (4.19-5.50); Red Cell Distribution Width 16.6 % (11.5-14.5); Segmented Neutrophils % 84.1 %
[2017-02-15 03:17] LABS: Prothrombin Time 10.7 Seconds (9.4-12.1)
[2017-02-15 03:20] LABS: Activated Partial Thrombo Time 47.8 Seconds (26.0-36.0)
[2017-02-15 03:33] LABS: Blood Urea Nitrogen > 130 mg/dL (8-23); Calcium 9.3 mg/dL (8.6-10.3); Carbon Dioxide 12 mEq/L (23-29); Chloride 111 mEq/L (98-107); Glucose 154 mg/dL (70-105); Potassium 6.9 mEq/L (3.5-5.1); Sodium 133 mEq/L (136-145); eGFR For African Americans 7 (> 60); eGFR For Non-African Americans 6 (> 60)
[2017-02-15] MEDS ORDERED: Insulin Regular, Human 100 UNIT/ML IV ONE (03:43)
[2017-02-15] MEDS ORDERED: *HR* Dextrose 50 % in Water (Syg) 50 ML SYRINGE IVP ONE (03:43)
[2017-02-15] MEDS ORDERED: Calcium Gluconate 1,000 MG in D5% in Water 100 ML IVPB ONE (03:43)
[2017-02-15] MEDS ORDERED: 0.9 % Sodium Chloride 1,000 ML IVC ONE (05:22)
[2017-02-15] MEDS ORDERED: Hydrocortisone Sodium Succ 100 MG/2 ML VIAL IVP ONE (05:58)
--- NOTE | 2017-02-15 08:23 | Internal Med History&Physical ---
Date of Encounter: 03/16/17 Time of Encounter: 08:21 Assessment and Plan (1) Otjas-gh-dsdcwiz kidney injury Status: Acute Oliguric KARI on CKD most likely 2/2 pre-renal etiology, decrease renal perfusion in the sitting hypovolemia, hypotension and ACEI. We will start isotonic fluid rich in bicarb drip at 75 cc/hr for acidemia and hyperkalemia. Strict I/Os, renal dosing of meds as per current eGFR. May require initiating of renal replacement therapy for volume control or MA not responding to medical treatment. Qualifiers: Acute renal failure type: unspecified Chronic kidney disease stage: stage 3 (moderate) Qualified Code(s): N17.9 - Acute kidney failure, unspecified; N18.3 - Chronic kidney disease, stage 3 (moderate); N18.3 - Chronic kidney disease, stage 3 (moderate) (2) Metabolic acidemia Status: Resolved Most likely 2/2 impaired ammoniagenesis , starting biacrb drip. (3) HTN (hypertension) Status: Chronic Qualifiers: Hypertension type: renovascular hypertension Qualified Code(s): I15.0 - Renovascular hypertension (4) DM (diabetes mellitus), type 2 Status: Chronic Cont Home meds , Insulin sliding scale. 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 repeat HGB is less than 10, we will start ESAs Qualifiers: Qualified Code(s): N18.9 - Chronic kidney disease, unspecified; D63.1 - Anemia in chronic kidney disease; D63.1 - Anemia in chronic kidney disease (6) CKD (chronic kidney disease) stage 3, GFR 30-59 ml/min Status: Chronic secondary to DM, A1C target is less than 7 (7) Mineral metabolism disorder Status: Acute We will obtain IPTH , Vit D levels We will start phos binder with meals (8) Hyperkalemia Status: Resolved Due to impaired renal function and shift due to MA (9) Recurrent UTI (urinary tract infection) Status: Acute We will obtain Cx and sensitivity, last cx was positive for Anu (10) DVT prophylaxis Status: Acute Heparin 5000 sc BID Internal Medicine - H&P: HPI Chief complaint: abnormal lab History of present illness: Mr. Neal is a 61 year old male with PMH of CKD,PMH-DKA, CVA, dementia, diabetes , hyperlipidemia, hypertension, hip replacement, orthopedic, depression, prior suicide attempt who presented from nursing facility with abnormal labs revealed hyperkalemia of . K+ 6.9, KARI on CKD with creat 8.84 ( baseline creat 1.4-2.0) sever metabolic acidosis with bicarb 12 and decreased urine output. He has no ECG changes and was treated with insulin, dextrose ca gluc and kaexylate.There was no repeat K after medical treatment in the ER , he was admitted for further evaluation and management. Past Med Surg Social Fam HX - Past Medical History Medical history: CVA, dementia, diabetes, hyperlipidemia, hypertension, other Psychiatric history: depression, prior suicide attempt - Past Surgical History Surgical History: hip replacement, orthopedic, other, other - Social History Smoking Status: Never smoker Smokeless Tobacco Status: No Alcohol use: none Drug use: none - Family History Mother Living Status: Still Living Hx Family Cardiac Disorders: Yes (A-fib s/p pacemaker) Hx Family Endocrine Disorder: Yes (DM) Father Living Status: Hx Family Cardiac Disorders: Yes (heart disease) Hx Family Respiratory Disorders: No Hx Family Cancer: No Hx Family GI Disorders: No Hx Family Endocrine Disorder: No Hx Family Neuromuscular Disorders: No Hx Family Neurologic Disorders: No Hx Family HEENT Disorders: No Hx Family Autoimmune Disorders: No Brother Living Status: Hx Family Cardiac Disorders: Yes ([place]) Hx Family Endocrine Disorder: Yes (DM) Internal Medicine - H&P: Meds Cyclosporine [Restasis] 1 drop OP BID 11/28/16 [History] Insulin Glargine,Hum.rec.anlog [Basaglar Kwikpen U-100] 10 unit SQ QPM 11/28/16 [History] Insulin LISPRO [HumaLOG] 2 - 10 units SQ TIDWM PRN 11/28/16 [History] Loratadine [Allergy Relief] 10 mg PO DAILY PRN 11/28/16 [History] Mirtazapine [Remeron] 15 mg PO HS 11/28/16 [History] Lisinopril [Zestril] 5 mg PO DAILY #0 tablet 12/03/16 [Rx] Omeprazole [PriLOSEC] 40 mg PO BIDAC capsule. 12/03/16 [Rx] Sucralfate [Carafate] 1 gm PO TID #1 bottle 12/03/16 [Rx] amLODIPine [Norvasc] 10 mg PO DAILY #0 tablet 12/03/16 [Rx] DULoxetine [Cymbalta] 30 mg PO DAILY 02/15/17 [History] Fluconazole [Diflucan] 100 mg PO DAILY #8 tablet 02/23/17 [Rx] levoFLOXacin [Levaquin] 500 mg PO Q48H #4 tablet 02/23/17 [Rx] 3 Allergy/AdvReac Type Severity Reaction Status Date / Time aspirin Allergy Rash Verified 02/15/17 02:44 pseudoephedrine Allergy Rash Verified 02/15/17 02:44 [From [facility]] ROS unobtainable: due to mental status All Systems PM: A 10-system review of systems was performed and is negative for pertinent findings except as documented above in the HPI. - Constitutional Vitals: Temp Pulse Resp BP Pulse Ox 98.0 F 51 16 90/50 98 02/15/17 07:59 02/15/17 07:59 02/15/17 08:08 02/15/17 08:08 02/15/17 07:59 General appearance: Present: A&O X 3 - Head Head exam: Present: atraumatic, normocephalic - Respiratory Respiratory exam: Present: CTAB. Absent: accessory muscle use, rales, rhonchi, wheezes - Cardiovascular Cardiovascular exam: Present: RRR, +S1, +S2. Absent: diastolic murmur, gallop, rubs, systolic murmur - GI/Abdominal GI/Abdominal exam: Present: normal bowel sounds, soft, no peritoneal signs. Absent: distended, tenderness - Extremities Exam Extremities exam: Present: warm, radial pulses palpable and symmetrical. Absent : calf tenderness, cyanotic, pedal edema Internal Med - H&P Results - Labs CBC & Chem 7: 02/23/17 04:00 02/23/17 04:00
[2017-02-15] MEDS ORDERED: Acetaminophen 325 MG TABLET PO PRN (08:32)
[2017-02-15] MEDS ORDERED: Naloxone 0.4 MG/ML INJ IVP PRN (08:32)
[2017-02-15] MEDS ORDERED: *HR* Morphine 2 MG/ML SYRINGE IVP PRN (08:32)
[2017-02-15] MEDS ORDERED: Mag Hydrox/Al Hydrox/Simeth 30 ML UDC PO PRN (08:32)
[2017-02-15] MEDS ORDERED: Ondansetron ODT 4 MG TAB.RAPDIS SL PRN (08:32)
[2017-02-15 08:42] LABS: Alanine Aminotransferase 6 Units/L (7-52); Albumin 3.4 g/dL (3.5-5.7); Albumin/Globulin Ratio 1.4 (1.1-2.2); Alkaline Phosphatase 121 Units/L (34-104); Aspartate Amino Transferase 10 Units/L (13-39); Bilirubin,Total 0.3 mg/dL (0.3-1.0); Blood Urea Nitrogen > 130 mg/dL (8-23); Calcium 9.3 mg/dL (8.6-10.3); Carbon Dioxide 13 mEq/L (23-29); Chloride 115 mEq/L (98-107); Globulin 2.4 g/dL (2.4-3.5); Glucose 84 mg/dL (70-105); Potassium 5.6 mEq/L (3.5-5.1); Sodium 137 mEq/L (136-145); Total Protein 5.8 g/dL (6.4-8.9); eGFR For African Americans 8 (> 60); eGFR For Non-African Americans 6 (> 60)
[2017-02-15] MEDS ORDERED: Sodium Bicarbonate 75 MEQ in 0.45 % Sodium Chloride 1,000 ML IVC SCH (08:45)
--- NOTE | 2017-02-15 09:13 | Nephrology Consult Note ---
Date of Encounter: 02/15/17 Time of Encounter: 08:45 Assessment and Plan (1) Nfict-tf-ikrwxae kidney injury Current Visit: No Status: Acute KARI in setting of hypovolemia, hypotension superimposed on CKD 3-4 most likely in setting of DM and HTN, baseline creat 1.4-2.0, GFR 23-50. Hyperkalemia in setting KARI and ACEI, improved. Started on Bicarb drip at 75 cc/hr for acidemia. Will have olivares placed for I/O, will do renal US. Will treat conservatively at present, may need HD, will monitor. Qualifiers: Acute renal failure type: unspecified Chronic kidney disease stage: stage 3 (moderate) Qualified Code(s): N17.9 - Acute kidney failure, unspecified; N18.3 - Chronic kidney disease, stage 3 (moderate) (2) Hypovolemia Current Visit: No Status: Acute (3) Metabolic acidemia Current Visit: No Status: Acute History of Present Illness - Reason for Consult Acute Kidney Injury - History of Present Illness Mr. Neal is a 61 year old male who presented from nursing facility with abnormal labs. K+ 6.9, creat 8.84, bicarb 12 and decreased urine output. Other PMH-DKA, CVA, dementia, diabetes, hyperlipidemia, hypertension, hip replacement , orthopedic, depression, prior suicide attempt. 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 Had recent hospital admission for DKA, resides in [facility] facility following CVA. Noted to be on ACEI. Was treated in ER with insulin, dextrose ca gluc and kaexylate. EKG without peaked waves or widened QRS. Repeat K+ 5.6, creat 8.76, bicarb 13. Hypotensive SBP 75-86. Bradycardic 48-50. No betablockers noted. No documented urine output. Bedside US did not show distended bladder. Patient appears emaciated and frail. At time of consult denies discomfort. Prior creat 1.4-2.0, GFR 23-50 from 10/2015 to present. Past Med Surg Social Fam HX - Past Medical History Medical history: CVA, dementia, diabetes, hyperlipidemia, hypertension, other Psychiatric history: depression, prior suicide attempt - Past Surgical History Surgical History: hip replacement, orthopedic, other, other - Social History Smoking Status: Never smoker Smokeless Tobacco Status: No Alcohol use: none Drug use: none - Family History Mother Living Status: Still Living Hx Family Cardiac Disorders: Yes (A-fib s/p pacemaker) Hx Family Endocrine Disorder: Yes (DM) Father Living Status: Hx Family Cardiac Disorders: Yes (heart disease) Hx Family Respiratory Disorders: No Hx Family Cancer: No Hx Family GI Disorders: No Hx Family Endocrine Disorder: No Hx Family Neuromuscular Disorders: No Hx Family Neurologic Disorders: No Hx Family HEENT Disorders: No Hx Family Autoimmune Disorders: No Brother Living Status: Hx Family Cardiac Disorders: Yes ([place]) Hx Family Endocrine Disorder: Yes (DM) Medications and Allergies Cyclosporine [Restasis] 1 drop OP BID 11/28/16 [History] Insulin Glargine,Hum.rec.anlog [Basaglar Kwikpen U-100] 10 unit SQ QPM 11/28/16 [History] Insulin LISPRO [HumaLOG] 2 - 10 units SQ TIDWM PRN 11/28/16 [History] Loratadine [Allergy Relief] 10 mg PO DAILY PRN 11/28/16 [History] Mirtazapine [Remeron] 15 mg PO HS 11/28/16 [History] Lisinopril [Zestril] 5 mg PO DAILY #0 tablet 12/03/16 [Rx] Omeprazole [PriLOSEC] 40 mg PO BIDAC capsule. 12/03/16 [Rx] Sucralfate [Carafate] 1 gm PO TID #1 bottle 12/03/16 [Rx] amLODIPine [Norvasc] 10 mg PO DAILY #0 tablet 12/03/16 [Rx] DULoxetine [Cymbalta] 30 mg PO DAILY 02/15/17 [History] 3 Allergy/AdvReac Type Severity Reaction Status Date / Time aspirin Allergy Rash Verified 02/15/17 02:44 pseudoephedrine Allergy Rash Verified 02/15/17 02:44 [From [facility]] Review of Systems ROS unobtainable: due to mental status Exam - Vital Signs Vital signs: Initial Vital Signs Temp Pulse Resp BP Pulse Ox 0 F L 61 16 100/57 99 02/15/17 02:37 02/15/17 02:37 02/15/17 02:37 02/15/17 02:37 02/15/17 02:37 Vital Signs - Last 8 Hours Temp Pulse Resp BP Pulse Ox 02/15/17 08:08 16 90/50 02/15/17 07:59 98.0 F 51 15 97/61 98 Intake and Output 02/14/17 02/15/17 02/15/17 23:59 07:59 15:59 Intake Total 0 / 0 Output Total 0 / 0 Balance 0 / 0 Intake: Oral 0 / 0 Output: Urine 0 / 0 Other: Blood Glucose* 79 - General Appearance General appearance: cachectic, frail EENT: mucous membranes moist Neck: no JVD Respiratory: clear Cardiology: no edema, regular rate, regular rhythm Additional Comments: bradycardia Gastrointestinal: normoactive bowel sounds, no tenderness, no guarding Integumentary: warm and dry Neurologic: confused Psychiatric: cooperative Results - Lab Results 02/15/17 02:52 02/15/17 08:03 Most recent lab results Calcium 9.3 mg/dL (8.6-10.3) 02/15/17 08:03 Consult Discharge Plan - Plan Referrals: Cecil Carter MD [Primary Care Provider] - (web request sent on 02/15/17)
[2017-02-15 09:18] LABS: % Iron Saturation 88 % (20-55); Iron 167 mcg/dL (65-175); Transferrin 136 mg/dL (203-362)
[2017-02-15] MEDS ORDERED: Sodium Bicarbonate 75 MEQ in 0.45 % Sodium Chloride 1,000 ML IVC ONE (10:45)
[2017-02-15 10:49] LABS: Hepatitis B Surface Antigen Nonreactive (Nonreactive)
[2017-02-15 17:02] LABS: Alanine Aminotransferase 5 Units/L (7-52); Albumin 3.1 g/dL (3.5-5.7); Albumin/Globulin Ratio 1.4 (1.1-2.2); Alkaline Phosphatase 115 Units/L (34-104); Aspartate Amino Transferase 9 Units/L (13-39); Bilirubin,Total 0.3 mg/dL (0.3-1.0); Blood Urea Nitrogen > 130 mg/dL (8-23); Calcium 8.8 mg/dL (8.6-10.3); Carbon Dioxide 11 mEq/L (23-29); Chloride 114 mEq/L (98-107); Globulin 2.2 g/dL (2.4-3.5); Glucose 191 mg/dL (70-105); Potassium 6.3 mEq/L (3.5-5.1); Sodium 137 mEq/L (136-145); Total Protein 5.3 g/dL (6.4-8.9); eGFR For African Americans 7 (> 60); eGFR For Non-African Americans 6 (> 60)
[2017-02-15] MEDS ORDERED: Loratadine 10 MG TABLET PO PRN (18:47)
[2017-02-15] MEDS ORDERED: Insulin LISPRO 300 UNITS/3 ML VIAL SQ PRN (18:47)
[2017-02-15] MEDS ORDERED: Dextrose Gel 15 GM/37.5 ML TUBE PO PRN ×2 (19:22)
[2017-02-15] MEDS ORDERED: D5% in Water 1,000 ML IVC PRN (19:22)
[2017-02-15] MEDS: Mirtazapine 15 MG TABLET PO SCH (20:15)
[2017-02-15] MEDS: Insulin DETEMIR 100 UNIT/ML X5UNITS SQ SCH (20:16)
[2017-02-15] MEDS: Insulin LISPRO 300 UNITS/3 ML VIAL SQ SCH (20:17)
[2017-02-15 21:00] LABS: Hemoglobin A1C 6.6 %
[2017-02-15] MEDS ORDERED: (Cyclosporine [Restasis] 1 DROP) OP SCH (21:00)
[2017-02-15 22:03] LABS: Bilirubin,Urine Negative (Negative); Blood,Urine Large (Negative); Clarity,Urine Turbid (Clear); Color,Urine Yellow (Yellow); Glucose,Urine (UA) Normal (Normal); Ketones,Urine Negative (Negative); Leukocyte Esterase,Urine Large (Negative); Nitrite,Urine Negative (Negative); Protein,Urine >=300 mg/dL (Neg-Trace); Specific Gravity,Urine 1.019 (1.010-1.025); Urobilinogen,Urine Normal (Normal)
[2017-02-15 22:20] LABS: Potassium,Urine 27.9 mEq/L
[2017-02-15 22:21] LABS: Bacteria,Urine None Seen per hpf (None-Few); Squamous Epithelial Cell,Urine Many per lpf (None-Few); WBC,Urine TNTC per hpf (0-3)
[2017-02-15 23:02] LABS: RBC,Urine 30-50 per hpf (0-3); Yeast,Urine Moderate per hpf (None Seen)
[2017-02-15 23:03] LABS: Hyaline Casts,Urine None Seen per lpf (None-Few)
[2017-02-16 03:17] LABS: Basophils % 0.1 %; Eosinophils % 0.4 %; Hematocrit 29.3 % (37.5-50.1); Hemoglobin 9.3 g/dL (12.9-16.9); Immature Granulocytes % 1.3 % (0-4); Immature Platelets 2.2 % (1.1-6.1); Lymphocytes % 13.4 %; Mean Corpuscular HGB Conc 31.7 g/dL (31.6-35.5); Mean Corpuscular Hemoglobin 29.5 pg (28.0-33.3); Mean Platelet Volume 9.9 fL (9.4-12.4); Monocytes # 0.3 K/mcL (0.0-1.3); Monocytes % 4.4 %; Neutrophils # 5.7 K/mcL (1.6-8.9); Nucleated Red Blood Cells 0.3 /100 WBC (0); Platelet Count 239 K/mcL (140-400); Red Blood Count 3.15 M/mcL (4.19-5.50); Red Cell Distribution Width 16.9 % (11.5-14.5); Segmented Neutrophils % 80.4 %
[2017-02-16 03:27] LABS: Prothrombin Time 10.8 Seconds (9.4-12.1)
[2017-02-16 03:30] LABS: Activated Partial Thrombo Time 44.6 Seconds (26.0-36.0)
[2017-02-16 04:29] LABS: Alanine Aminotransferase 5 Units/L (7-52); Albumin/Globulin Ratio 1.3 (1.1-2.2); Alkaline Phosphatase 106 Units/L (34-104); Aspartate Amino Transferase 8 Units/L (13-39); Bilirubin,Total 0.3 mg/dL (0.3-1.0); Blood Urea Nitrogen > 130 mg/dL (8-23); Calcium 8.7 mg/dL (8.6-10.3); Carbon Dioxide 12 mEq/L (23-29); Chloride 114 mEq/L (98-107); Cholesterol 89 mg/dL (< 200); Globulin 2.4 g/dL (2.4-3.5); Glucose 171 mg/dL (70-105); Magnesium 2.1 mg/dL (1.6-2.6); Phosphorous 7.6 mg/dL (2.7-4.5); Potassium 4.9 mEq/L (3.5-5.1); Sodium 139 mEq/L (136-145); Total Protein 5.4 g/dL (6.4-8.9); Triglycerides 97 mg/dL (< 150); eGFR For African Americans 8 (> 60); eGFR For Non-African Americans 6 (> 60)
[2017-02-16 04:53] LABS: Chol/HDL Ratio 3.1 (0-4.9); HDL Cholesterol 29 mg/dL (40-59); LDL Cholesterol,Calculated 41 mg/dL (0-99)
[2017-02-16] MEDS: Insulin LISPRO 300 UNITS/3 ML VIAL SQ SCH ×4 (08:31→19:54)
[2017-02-16] MEDS ORDERED: amLODIPine 5 MG TABLET PO SCH (09:00)
[2017-02-16 09:22] LABS: Alanine Aminotransferase 5 Units/L (7-52); Albumin/Globulin Ratio 1.3 (1.1-2.2); Alkaline Phosphatase 103 Units/L (34-104); Aspartate Amino Transferase 9 Units/L (13-39); Bilirubin,Total 0.3 mg/dL (0.3-1.0); Blood Urea Nitrogen > 130 mg/dL (8-23); Calcium 8.8 mg/dL (8.6-10.3); Carbon Dioxide 15 mEq/L (23-29); Chloride 114 mEq/L (98-107); Globulin 2.4 g/dL (2.4-3.5); Glucose 114 mg/dL (70-105); Potassium 4.8 mEq/L (3.5-5.1); Sodium 139 mEq/L (136-145); Total Protein 5.4 g/dL (6.4-8.9); eGFR For African Americans 7 (> 60); eGFR For Non-African Americans 6 (> 60)
--- NOTE | 2017-02-16 09:22 | Electrocardiograph Report ---
[address] [address] Test Date: 2017-02-15 Pat Name: Enoc Neal Department: 104 Room: 2A24 Gender: M Keno Manager: : [id number] Requested By: Meet Morel Order Number: [id number] Reading MD: Carolina Riley Measurements Intervals [place] Rate: 57 P: 34 SC: 304 QRS: -12 QRSD: 107 T: 59 QT: 419 QTc: 412 Interpretive Statements SINUS BRADYCARDIA WITH FIRST DEGREE AV BLOCK Electronically Signed On 02-16-2017 9:20:19 EST by Carolina Riley
[2017-02-16] MEDS ORDERED: 0.9 % Sodium Chloride 250 ML IVC PRN (09:24)
[2017-02-16] MEDS ORDERED: *HR* Heparin 10,000 UNIT/10 ML VIAL IV PRN (09:24)
--- NOTE | 2017-02-16 10:44 | Internal Med Progress Note ---
<Triston Cheung - Last Filed: 02/16/17 17:36> Date of Encounter: 02/16/17 Time of Encounter: 09:30 - Assessment and plan (1) Sepsis Current Visit: Yes Status: Acute Assessment and plan: - 2 SIRS criteria (WBC 12.6 on admission and temperature as low as 91.1 today) with lactic acid 0.3 - Likely secondary to UTI. - Urine culture and blood cultures pending. - Continue hydration with IV fluid. - Start IV Zosyn. - Continue to monitor closely. Qualifiers: Sepsis type: sepsis due to unspecified organism Qualified Code(s): A41.9 - Sepsis, unspecified organism (2) Zgiww-nf-dxtmzfm kidney injury Current Visit: No Status: Acute Assessment and plan: - SCr 8.84 / eGFR 6 on admission, significantly worsen compared to last SCr 1.54 / eGFR 50 on 12/03/16. - Likely pre-renal given noted hypotension. - Nephrology on board. Patient had temporary hemodialysis catheter placed by IR for planned hemodialysis today. - Continue to monitor renal function and electrolytes closely. Qualifiers: Acute renal failure type: unspecified Chronic kidney disease stage: stage 3 (moderate) Qualified Code(s): N17.9 - Acute kidney failure, unspecified; N18.3 - Chronic kidney disease, stage 3 (moderate); N18.3 - Chronic kidney disease, stage 3 (moderate) (3) Hypotension Current Visit: No Status: Acute Assessment and plan: - Noted to have blood pressure as low as 76/48 this afternoon. - Likely related to sepsis. - Patient's blood pressure responses to IV fluid bolus. - Continue hydration with IV fluid. - Monitor closely. Qualifiers: Hypotension type: other hypotension type Qualified Code(s): I95.89 - Other hypotension (4) Recurrent UTI (urinary tract infection) Current Visit: Yes Status: Acute Assessment and plan: - Large amount of leukocyte esterase noted on UA on admission. - Urine culture ifrom 10/17/16 grew Pseudomonas aeruginosa and Proteus mirabilis. - Urine culture and blood cultures pending. - Start IV Zosyn. (5) Bladder wall thickening Current Visit: Yes Status: Acute Assessment and plan: - Retroperitoneal US found diffuse urinary bladder wall thickening concerning of cystitis or chronic bladder outlet obstruction. - Patient has no urine output even after attempt of olivares placement by nurse. - Urology consulted and appreciate assistance on urinary catheter placement. (6) Metabolic acidemia Current Visit: No Status: Acute Assessment and plan: - Non-anion gap metabolic acidosis with bicarbonate 12 on admission. - Most likely secondary to impaired ammoniagenesis. - Continue bicarbonate drip. - Continue to monitor electrolytes closely. (7) Hyperkalemia Current Visit: Yes Status: Acute Assessment and plan: - K 6.9 on admission. - Likely secondary to current KARI on CKD. - Improves as K 4.6 today. - Continue to monitor. (8) DM (diabetes mellitus), type 2 Current Visit: No Status: Chronic Assessment and plan: - Continue basal and sliding scale insulin with glucose monitoring. Qualifiers: Diabetes mellitus complication status: with hypoglycemia Diabetes mellitus complication detail: without coma Diabetes mellitus retirement insulin use: with retirement use Qualified Code(s): E11.649 - Type 2 diabetes mellitus with hypoglycemia without coma; Z79.4 - [facility] (current) use of insulin (9) DVT prophylaxis Current Visit: No Status: Acute Assessment and plan: - Continue SQ heparin. - Subjective Interval history: Patient was seen and examined this morning. Patient reports doing okay and denies fever, chills, chest pain, abdominal pain, nausea, vomiting, diarrhea, dysuria, hematuria. - Constitutional Vitals: Temp Pulse Resp BP Pulse Ox 91.1 F L 59 14 103/54 97 02/16/17 10:04 02/16/17 07:19 02/16/17 07:19 02/16/17 07:19 02/16/17 07:19 General appearance: Present: A&O X 3 - Head Head exam: Present: normal inspection - Eye Eye exam: Present: EOMI, conjuntiva pink, sclera anicteric - Neck Neck exam general surgery: Present: normal inspection, supple, trachea midline - Respiratory Respiratory exam: Present: CTAB. Absent: accessory muscle use - Cardiovascular Cardiovascular exam: Present: RRR, +S1, +S2 - GI/Abdominal GI/Abdominal exam: Present: soft, no peritoneal signs. Absent: tenderness - Extremities Exam Extremities exam: Present: normal inspection, warm. Absent: cyanotic, pedal edema - Neurological Exam Neurological exam: Present: alert. Absent: facial droop, speech deficit - Skin Skin exam: Present: dry. Absent: cyanosis Internal Medicine: Result - Labs CBC & Chem 7: 02/16/17 03:05 02/16/17 13:35 Labs: Short CBC 02/16/17 Range/Units 03:05 WBC 7.1 (4.3-11.1) K/mcL Hgb 9.3 L (12.9-16.9) g/dL Hct 29.3 L (37.5-50.1) % Plt Count 239 (140-400) K/mcL Neutrophils # 5.7 (1.6-8.9) K/mcL BMP 02/15/17 02/16/17 02/16/17 15:50 03:05 08:41 Sodium 137 139 139 Potassium 6.3 H 4.9 4.8 Chloride 114 H 114 H 114 H Carbon Dioxide 11 L 12 L 15 L BUN > 130 H > 130 H > 130 H Creatinine 8.93 H 8.68 H 9.30 H Glucose 191 H 171 H 114 H Calcium 8.8 8.7 8.8 Cardiac Enzymes 02/15/17 02/15/17 Range/Units 15:50 21:54 Troponin I < 0.03 < 0.03 (< 0.04) ng/mL Liver Function 02/15/17 02/16/17 02/16/17 Range/Units 15:50 03:05 08:41 Total Bilirubin 0.3 0.3 0.3 (0.3-1.0) mg/dL AST 9 L 8 L 9 L (13-39) Units/L ALT 5 L 5 L 5 L (7-52) Units/L Alkaline Phosphatase 115 H 106 H 103 (34-104) Units/L Albumin 3.1 L 3.0 L 3.0 L (3.5-5.7) g/dL Urine 02/15/17 Range/Units 21:44 Urine Color Yellow (Yellow) Urine Clarity Turbid A (Clear) Urine pH 6.0 (5.0-8.0) pH Units Ur Specific Mcclure 1.019 (1.010-1.025) Urine Protein >=300 H (Neg-Trace) mg/dL Urine Glucose (UA) Normal (Normal) mg/dL - ABG Interpretation ABG results: PT/INR, D-dimer PT 10.8 Seconds (9.4-12.1) 02/16/17 03:05 - Impressions Impressions Chest X-Ray 02/15/17 08:41 IMPRESSION: Stable chest demonstrating what appear to be atelectatic changes at the right lung base D/ / Randall Carpenter MD / Randall Carpenter MD Interpreting Provider: Randall Carpenter MD Retroperitoneum Ultrasound 02/15/17 16:00 IMPRESSION: Unremarkable ultrasound of the kidneys. Diffuse urinary bladder wall thickening, similar given differences in modality from prior CT exam 11/28/2016 and nonspecific, possibly reflecting cystitis or chronic bladder outlet obstruction. There is also some layering debris within the urinary bladder. Clinical and laboratory correlation suggested. D/ / 02/15/2017 17:01:25 Michael Blanchard MD / [facility] Interpreting Provider: Michael Blanchard MD Consult Discharge Plan - Plan Referrals: Cecil Carter MD [Primary Care Provider] - 02/22/17 1:15 pm () <Wyatt Dominguez - Last Filed: 02/16/17 18:44> Date of Encounter: 02/16/17 - Assessment and plan (1) Acute renal failure Current Visit: Yes Status: Suspected Assessment and plan: Dialysis started today. Qualifiers: Acute renal failure type: with acute tubular necrosis Qualified Code(s): N17.0 - Acute kidney failure with tubular necrosis (2) Acute metabolic encephalopathy Current Visit: No Status: Acute (3) Hyperkalemia Current Visit: Yes Status: Acute (4) Sepsis Current Visit: Yes Status: Acute Qualifiers: Sepsis type: sepsis due to unspecified organism Qualified Code(s): A41.9 - Sepsis, unspecified organism (5) Hypotension Current Visit: No Status: Acute Qualifiers: Hypotension type: other hypotension type Qualified Code(s): I95.89 - Other hypotension (6) UTI (urinary tract infection) Current Visit: No Status: Suspected Qualifiers: Urinary tract infection type: acute cystitis Hematuria presence: with hematuria Qualified Code(s): N30.01 - Acute cystitis with hematuria - Constitutional Vitals: Temp Pulse Resp BP Pulse Ox 98.4 F 89 16 113/60 92 02/16/17 17:00 02/16/17 18:00 02/16/17 17:37 02/16/17 17:37 02/16/17 18:00 Internal Medicine: Result - Labs CBC & Chem 7: 02/16/17 03:05 02/16/17 13:35 Labs: Short CBC 02/16/17 Range/Units 03:05 WBC 7.1 (4.3-11.1) K/mcL Hgb 9.3 L (12.9-16.9) g/dL Hct 29.3 L (37.5-50.1) % Plt Count 239 (140-400) K/mcL Neutrophils # 5.7 (1.6-8.9) K/mcL BMP 02/16/17 02/16/17 02/16/17 03:05 08:41 13:35 Sodium 139 139 141 Potassium 4.9 4.8 4.6 Chloride 114 H 114 H 116 H Carbon Dioxide 12 L 15 L 15 L BUN > 130 H > 130 H > 130 H Creatinine 8.68 H 9.30 H 8.88 H Glucose 171 H 114 H 70 Calcium 8.7 8.8 8.3 L Cardiac Enzymes 02/15/17 Range/Units 21:54 Troponin I < 0.03 (< 0.04) ng/mL Liver Function 02/16/17 02/16/17 02/16/17 Range/Units 03:05 08:41 13:35 Total Bilirubin 0.3 0.3 0.2 L (0.3-1.0) mg/dL AST 8 L 9 L 7 L (13-39) Units/L ALT 5 L 5 L 5 L (7-52) Units/L Alkaline Phosphatase 106 H 103 98 (34-104) Units/L Albumin 3.0 L 3.0 L 2.8 L (3.5-5.7) g/dL Urine 02/15/17 Range/Units 21:44 Urine Color Yellow (Yellow) Urine Clarity Turbid A (Clear) Urine pH 6.0 (5.0-8.0) pH Units Ur Specific Mcclure 1.019 (1.010-1.025) Urine Protein >=300 H (Neg-Trace) mg/dL Urine Glucose (UA) Normal (Normal) mg/dL - ABG Interpretation ABG results: PT/INR, D-dimer PT 10.8 Seconds (9.4-12.1) 02/16/17 03:05 - Impressions Impressions Retroperitoneum Ultrasound 02/15/17 16:00 IMPRESSION: Unremarkable ultrasound of the kidneys. Diffuse urinary bladder wall thickening, similar given differences in modality from prior CT exam 11/28/2016 and nonspecific, possibly reflecting cystitis or chronic bladder outlet obstruction. There is also some layering debris within the urinary bladder. Clinical and laboratory correlation suggested. D/ / 02/15/2017 17:01:25 Michael Blanchard MD / [facility] Interpreting Provider: Michael Blanchard MD Chest X-Ray 02/16/17 11:17 IMPRESSION: Interval placement of right CVC with the tip at the atrio-caval junction. No pneumothorax. D/ / 02/16/2017 11:54:38 Jax Hood MD / [facility] Interpreting Provider: Jax Hood MD - Attending Attestation I examined this patient and my medical decision-making was reviewed with the Resident Physician on 02/16/17. I agree with the documented findings, disposition and treatment plan as described except to the extent set forth below. Mr Neal is currently admitted for acute renal failure. He remains high risk due to potential for worsening clinical status. Mr Neal has been hypothermic and hypotensive this afternoon. He has responded to fluids. He had some dialysis today. Prior hx of UTIs. No abd pain. Exam Alert. Responds slowly Mucus membranes dry Heart regular Lungs diminished Abd soft and nontender No edema I/P 1. Sepsis - most likely due to UTI. Cultures sent. Abx started 2. ARF - most likely ATN. Further diagnoses and plan as above.
--- NOTE | 2017-02-16 10:44 | Nephrology Progress Note ---
Date of Encounter: 02/16/17 Time of Encounter: 09:10 - Assessment and Plan (1) Iprvg-vr-srqfuiw kidney injury Current Visit: No Status: Acute KARI in setting of hypovolemia, hypotension superimposed on CKD 3-4 most likely in setting of DM and HTN, baseline creat 1.4-2.0, GFR 23-50. Hyperkalemia in setting KARI and ACEI, improved. Recommend bicarb drip. Renal US suggests bladder outlet obstruction. Refused olivares. Will consult IR for temp. catheter placement today, followed by HD, Orders given. Qualifiers: Acute renal failure type: unspecified Chronic kidney disease stage: stage 3 (moderate) Qualified Code(s): N17.9 - Acute kidney failure, unspecified; N18.3 - Chronic kidney disease, stage 3 (moderate); N18.3 - Chronic kidney disease, stage 3 (moderate) (2) Hypovolemia Current Visit: No Status: Acute (3) Metabolic acidemia Current Visit: No Status: Acute Subjective Interval history: Laying with sheet over head, speaks clearly. States will not have olivares catheter placed although discussed renal us results suggest bladder outlet obstruction which may be contributing to renal insufficiency. Told will need temporary catheter placed for dialysis today, which was explained in full and anatomically shown where catheter to be placed. He verbalized agreement to placement and HD. Noted no IV fluids infusing. Objective - Vital Signs Vital signs: Vital Signs Temp Pulse Resp BP Pulse Ox 02/16/17 10:04 91.1 F L 02/16/17 07:19 59 14 103/54 97 02/16/17 04:13 97.9 F 62 16 121/71 99 02/15/17 23:24 97.6 F 67 15 105/62 97 02/15/17 20:23 97.5 F L 70 15 94/56 100 02/15/17 17:01 98.2 F 52 16 96/54 96 02/15/17 10:55 98.0 F 56 16 98/64 97 Intake and Output 02/15/17 02/16/17 02/16/17 23:59 07:59 15:59 Intake Total 0 / 0 Output Total 150 / 150 Balance -150 / -150 Intake: Oral 0 / 0 Output: Urine 150 / 150 Other: Meal Dinner Percent of Meal Consumed 10% Weight 59 kg Blood Glucose* 232 103 Patient Weight 02/16/17 23:59 Weight 59 kg - General Appearance General appearance: Present: appears started age, chronically ill EENT: Present: mucous membranes moist Neck: Present: no JVD Respiratory: Present: clear Cardiology: Present: no edema, regular rate, regular rhythm Gastrointestinal: Present: normoactive bowel sounds, no tenderness Integumentary: Present: warm and dry Psychiatric: Present: mood/affect appropriate, cooperative - Lab 02/16/17 03:05 02/16/17 08:41 Most recent lab results Calcium 8.8 mg/dL (8.6-10.3) 02/16/17 08:41 Phosphorus 7.6 mg/dL (2.7-4.5) H 02/16/17 03:05 Magnesium 2.1 mg/dL (1.6-2.6) 02/16/17 03:05 Urine Creatinine 111 mg/dL 02/15/17 21:44 Urine Sodium 59.5 mEq/L 02/15/17 21:44 Consult Discharge Plan - Plan Referrals: Cecil Carter MD [Primary Care Provider] - 02/22/17 1:15 pm ()
[2017-02-16] MEDS ORDERED: Heparin 1,000 UNIT, 0.9 % Sodium Chloride 500 ML INARTERIAL ONE (11:00)
--- NOTE | 2017-02-16 11:29 | IR Procedure Note ---
Date of procedure: 02/16/17 Consent Obtained: Verbal consent, Written consent Timeout: Correct patient and procedure verified, Correct site verified, Time out performed, Skin prep completed Local anesthetic: Lidocaine 1% Indications: ARF Procedure Performed: temp HDC placement Was there an engineer first assistant present: No Site/Technique: RIJ Estimated blood loss (cc): 2 Complications: None; Tolerated procedure well Post Procedure Treatment Plan: CXR Specimen: none
[2017-02-16] MEDS ORDERED: 0.9 % Sodium Chloride 1,000 ML ONE (11:55)
[2017-02-16] MEDS ORDERED: 0.9 % Sodium Chloride 1,000 ML IVC ONE ×3 (11:58→13:41)
[2017-02-16] MEDS: Sodium Bicarbonate 75 MEQ in 0.45 % Sodium Chloride 1,000 ML IVC SCH (12:02)
[2017-02-16] MEDS: Piperacillin/Tazobactam 3.375 GM/200 ML BAG IVPB SCH ×2 (12:18→18:57)
[2017-02-16] MEDS ORDERED: Albumin 25% 12.5gm/50mL 25.0 GM/100 ML IV.SOLN ONE (14:06)
[2017-02-16] MEDS ORDERED: Albumin 25% 12.5gm/50mL 12.5 GM/50 ML IV.SOLN IVPB PRN (14:06)
[2017-02-16] MEDS ORDERED: 0.9 % Sodium Chloride 2,000 ML ONE (14:06)
[2017-02-16] MEDS ORDERED: 0.9 % Sodium Chloride 1,000 ML PRIME SCH (14:15)
[2017-02-16 14:33] LABS: Alanine Aminotransferase 5 Units/L (7-52); Albumin 2.8 g/dL (3.5-5.7); Albumin/Globulin Ratio 1.3 (1.1-2.2); Alkaline Phosphatase 98 Units/L (34-104); Aspartate Amino Transferase 7 Units/L (13-39); Bilirubin,Total 0.2 mg/dL (0.3-1.0); Blood Urea Nitrogen > 130 mg/dL (8-23); Calcium 8.3 mg/dL (8.6-10.3); Carbon Dioxide 15 mEq/L (23-29); Chloride 116 mEq/L (98-107); Globulin 2.1 g/dL (2.4-3.5); Glucose 70 mg/dL (70-105); Potassium 4.6 mEq/L (3.5-5.1); Sodium 141 mEq/L (136-145); Total Protein 4.9 g/dL (6.4-8.9); eGFR For African Americans 7 (> 60); eGFR For Non-African Americans 6 (> 60)
[2017-02-16] MEDS ORDERED: Vancomycin 1,000 MG in D5% in Water 250 ML IVPB ONE (16:00)
--- NOTE | 2017-02-16 17:27 | Urology - Consult Note ---
Date of Encounter: 02/16/17 Time of Encounter: 17:26 - Assessment and Plan (1) Bladder wall thickening Current Visit: Yes Status: Acute Assessment and plan: unknown etiology for the bladder wall thickening. I suspect chronic cystitis rather than outlet obstruction. may need outpatient cystoscopy to better evaluate. unknown etiology for renal failure. I suspect intrinsic or prerenal cause but cannot rule out post renal (bladder wall thickening). However, I would suspect some hydroureter if post renal (Ct scan shows no hydronephrosis or hydroureter) . no urgent need for ureteral stents or nephrostomy tubes at this point. will follow closely. will place olivares cath for better I&Os Urology CN:HPI Consult date: 02/16/17 Reason for consult Urology: Difficult Olivares History of present illness: 61 yo WM with history of DKA, CVA, dementia, diabetes, hyperlipidemia, hypertension, hip replacement, orthopedic, depression, prior suicide attempt. currently admitted with ARF requiring HD. nursing staff unable to place cath. pt has significant history of recurrent UTIs (cx proven in [facility]). CT scan in Oct with diffuse bladder wall thickening and no hydro. recent renal ultrasound shows no hydronephrosis. unable to provide detailed information regarding urologic history or symptoms. Past Med Surg Social Fam HX - Past Medical History Medical history: CVA, dementia, diabetes, hyperlipidemia, hypertension, other Psychiatric history: depression, prior suicide attempt - Past Surgical History Surgical History: hip replacement, orthopedic, other, other - Social History Smoking Status: Never smoker Smokeless Tobacco Status: No Alcohol use: none Drug use: none - Family History Mother Living Status: Still Living Hx Family Cardiac Disorders: Yes (A-fib s/p pacemaker) Hx Family Endocrine Disorder: Yes (DM) Father Living Status: Hx Family Cardiac Disorders: Yes (heart disease) Hx Family Respiratory Disorders: No Hx Family Cancer: No Hx Family GI Disorders: No Hx Family Endocrine Disorder: No Hx Family Neuromuscular Disorders: No Hx Family Neurologic Disorders: No Hx Family HEENT Disorders: No Hx Family Autoimmune Disorders: No Brother Living Status: Hx Family Cardiac Disorders: Yes (SC) Hx Family Endocrine Disorder: Yes (DM) Medications and Allergies Cyclosporine [Restasis] 1 drop OP BID 11/28/16 [History] Insulin Glargine,Hum.rec.anlog [Basaglar Kwikpen U-100] 10 unit SQ QPM 11/28/16 [History] Insulin LISPRO [HumaLOG] 2 - 10 units SQ TIDWM PRN 11/28/16 [History] Loratadine [Allergy Relief] 10 mg PO DAILY PRN 11/28/16 [History] Mirtazapine [Remeron] 15 mg PO HS 11/28/16 [History] Lisinopril [Zestril] 5 mg PO DAILY #0 tablet 12/03/16 [Rx] Omeprazole [PriLOSEC] 40 mg PO BIDAC capsule. 12/03/16 [Rx] Sucralfate [Carafate] 1 gm PO TID #1 bottle 12/03/16 [Rx] amLODIPine [Norvasc] 10 mg PO DAILY #0 tablet 12/03/16 [Rx] DULoxetine [Cymbalta] 30 mg PO DAILY 02/15/17 [History] 3 Allergy/AdvReac Type Severity Reaction Status Date / Time aspirin Allergy Rash Verified 02/15/17 02:44 pseudoephedrine Allergy Rash Verified 02/15/17 02:44 [From [facility]] Review of Systems ROS unobtainable: due to mental status Exam Initial Vital Signs Temp Pulse Resp BP Pulse Ox 0 F L 61 16 100/57 99 02/15/17 02:37 02/15/17 02:37 02/15/17 02:37 02/15/17 02:37 02/15/17 02:37 - General physical appearance Present: no distress, chronically ill - Eyes Present: conjunctiva is clear - ENT Present: normal nares - Neck Present: no masses, no lymphadenopathy - Respiratory Present: normal respiratory effort - Cardiovascular Cardiovascular exam IM: RRR - Abdomen Abdomen: Present: soft, suprapubic tenderness (mild). Absent: tender, masses - Genitourinary normal penis with no external lesions - Integumentary Present: no rash - Neurologic Present: confused Urology Results - Labs 02/16/17 03:05 02/16/17 13:35 Abnormal lab results RBC 3.15 M/mcL (4.19-5.50) L 02/16/17 03:05 Hgb 9.3 g/dL (12.9-16.9) L 02/16/17 03:05 Hct 29.3 % (37.5-50.1) L 02/16/17 03:05 RDW 16.9 % (11.5-14.5) H 02/16/17 03:05 Nucleated RBCs/100 WBC 0.3 /100 WBC (0) H 02/16/17 03:05 APTT 44.6 Seconds (26.0-36.0) H 02/16/17 03:05 Chloride 116 mEq/L (98-107) H 02/16/17 13:35 Carbon Dioxide 15 mEq/L (23-29) L 02/16/17 13:35 BUN > 130 mg/dL (8-23) H 02/16/17 13:35 Creatinine 8.88 mg/dL (0.70-1.30) H 02/16/17 13:35 Est GFR ( Amer) 7 (> 60) L 02/16/17 13:35 Est GFR (Non-Af Amer) 6 (> 60) L 02/16/17 13:35 POC Glucose 232 (58-89) H 02/15/17 19:14 Hemoglobin A1c 6.6 % (-5.6) H 02/15/17 20:12 Lactic Acid 0.3 mmol/L (0.5-2.2) L 02/16/17 13:35 Calcium 8.3 mg/dL (8.6-10.3) L 02/16/17 13:35 Phosphorus 7.6 mg/dL (2.7-4.5) H 02/16/17 03:05 % Saturation 88 % (20-55) H 02/15/17 08:03 Transferrin 136 mg/dL (203-362) L 02/15/17 08:03 Total Bilirubin 0.2 mg/dL (0.3-1.0) L 02/16/17 13:35 AST 7 Units/L (13-39) L 02/16/17 13:35 ALT 5 Units/L (7-52) L 02/16/17 13:35 Serum Total Protein 4.9 g/dL (6.4-8.9) L 02/16/17 13:35 Albumin 2.8 g/dL (3.5-5.7) L 02/16/17 13:35 Globulin 2.1 g/dL (2.4-3.5) L 02/16/17 13:35 HDL Cholesterol 29 mg/dL (40-59) L 02/16/17 03:05 25-OH Vitamin D Total 27 ng/mL (30-80) L 02/15/17 08:03 Urine Clarity Turbid (Clear) A 02/15/17 21:44 Urine Protein >=300 mg/dL (Neg-Trace) H 02/15/17 21:44 Urine Blood Large (Negative) H 02/15/17 21:44 Ur Leukocyte Esterase Large (Negative) H 02/15/17 21:44 Urine Microscopic RBC 30-50 per hpf (0-3) H 02/15/17 21:44 Urine Microscopic WBC TNTC per hpf (0-3) H 02/15/17 21:44 Ur Squamous Epith Cells Many per lpf (None-Few) H 02/15/17 21:44 Urine Yeast Moderate per hpf (None Seen) H 02/15/17 21:44 Diabetes panel 02/15/17 02/16/17 02/16/17 Range/Units 20:12 03:05 08:41 Sodium 139 139 (136-145) mEq/L Potassium 4.9 4.8 (3.5-5.1) mEq/L Chloride 114 H 114 H (98-107) mEq/L Carbon Dioxide 12 L 15 L (23-29) mEq/L BUN > 130 H > 130 H (8-23) mg/dL Creatinine 8.68 H 9.30 H (0.70-1.30) mg/dL Glucose 171 H 114 H (70-105) mg/dL Hemoglobin A1c 6.6 H ( - 5.6) % Calcium 8.7 8.8 (8.6-10.3) mg/dL AST 8 L 9 L (13-39) Units/L ALT 5 L 5 L (7-52) Units/L Alkaline Phosphatase 106 H 103 (34-104) Units/L Albumin 3.0 L 3.0 L (3.5-5.7) g/dL Triglycerides 97 (< 150) mg/dL HDL Cholesterol 29 L (40-59) mg/dL 02/16/17 Range/Units 13:35 Sodium 141 (136-145) mEq/L Potassium 4.6 (3.5-5.1) mEq/L Chloride 116 H (98-107) mEq/L Carbon Dioxide 15 L (23-29) mEq/L BUN > 130 H (8-23) mg/dL Creatinine 8.88 H (0.70-1.30) mg/dL Glucose 70 (70-105) mg/dL Hemoglobin A1c ( - 5.6) % Calcium 8.3 L (8.6-10.3) mg/dL AST 7 L (13-39) Units/L ALT 5 L (7-52) Units/L Alkaline Phosphatase 98 (34-104) Units/L Albumin 2.8 L (3.5-5.7) g/dL Triglycerides (< 150) mg/dL HDL Cholesterol (40-59) mg/dL Calcium panel 02/16/17 02/16/17 02/16/17 Range/Units 03:05 08:41 13:35 Calcium 8.7 8.8 8.3 L (8.6-10.3) mg/dL Phosphorus 7.6 H (2.7-4.5) mg/dL Albumin 3.0 L 3.0 L 2.8 L (3.5-5.7) g/dL Pituitary panel 02/16/17 02/16/17 02/16/17 Range/Units 03:05 08:41 13:35 Sodium 139 139 141 (136-145) mEq/L Potassium 4.9 4.8 4.6 (3.5-5.1) mEq/L Chloride 114 H 114 H 116 H (98-107) mEq/L Carbon Dioxide 12 L 15 L 15 L (23-29) mEq/L BUN > 130 H > 130 H > 130 H (8-23) mg/dL Creatinine 8.68 H 9.30 H 8.88 H (0.70-1.30) mg/dL Glucose 171 H 114 H 70 (70-105) mg/dL Calcium 8.7 8.8 8.3 L (8.6-10.3) mg/dL Adrenal panel 02/16/17 02/16/17 02/16/17 Range/Units 03:05 08:41 13:35 Sodium 139 139 141 (136-145) mEq/L Potassium 4.9 4.8 4.6 (3.5-5.1) mEq/L Chloride 114 H 114 H 116 H (98-107) mEq/L Carbon Dioxide 12 L 15 L 15 L (23-29) mEq/L BUN > 130 H > 130 H > 130 H (8-23) mg/dL Creatinine 8.68 H 9.30 H 8.88 H (0.70-1.30) mg/dL Glucose 171 H 114 H 70 (70-105) mg/dL Calcium 8.7 8.8 8.3 L (8.6-10.3) mg/dL Total Bilirubin 0.3 0.3 0.2 L (0.3-1.0) mg/dL AST 8 L 9 L 7 L (13-39) Units/L ALT 5 L 5 L 5 L (7-52) Units/L Alkaline Phosphatase 106 H 103 98 (34-104) Units/L Albumin 3.0 L 3.0 L 2.8 L (3.5-5.7) g/dL All other labs normal. Procedures:Urology - Catheter Insertion (Urinary) Prophylactic antibiotics given: No Bladder Scan/Ultrasound used before catheterization: No Estimated amount of urin (mLs): 50 Preparation: Povidone-Iodine Type of catheter inserted: 2 way Catheter Divehi Size: 16 Topical anesthesia used: Yes Results: successfully catheterized-immediate flow Urine Appearance: Clear Patient tolerated procedure: well Complications: none Additional comments: 16 croatian coude placed after urojet Consult Discharge Plan - Plan Referrals: Cecil Carter MD [Primary Care Provider] - 02/22/17 1:15 pm ()
[2017-02-16] MEDS: *HR* Dextrose 50 % in Water (Syg) 50 ML SYRINGE IVP PRN (17:50)
[2017-02-16] MEDS: Insulin DETEMIR 100 UNIT/ML X5UNITS SQ SCH (18:35)
[2017-02-16] MEDS: Mirtazapine 15 MG TABLET PO SCH (19:54)
[2017-02-17] MEDS: Piperacillin/Tazobactam 3.375 GM/200 ML BAG IVPB SCH ×2 (00:05→12:33)
[2017-02-17] MEDS: Sodium Bicarbonate 75 MEQ in 0.45 % Sodium Chloride 1,000 ML IVC SCH (02:44)
[2017-02-17 05:02] LABS: Basophils % 0.3 %; Eosinophils # 0.3 K/mcL (0.0-0.6); Eosinophils % 4.5 %; Hematocrit 24.2 % (37.5-50.1); Lymphocytes % 17.4 %; Mean Corpuscular HGB Conc 33.1 g/dL (31.6-35.5); Mean Corpuscular Hemoglobin 29.3 pg (28.0-33.3); Mean Corpuscular Volume 88.6 fL (83.0-100.0); Mean Platelet Volume 9.8 fL (9.4-12.4); Monocytes # 0.5 K/mcL (0.0-1.3); Monocytes % 9.3 %; Neutrophils # 3.9 K/mcL (1.6-8.9); Nucleated Red Blood Cells 0.3 /100 WBC (0); Platelet Count 188 K/mcL (140-400); Red Blood Count 2.73 M/mcL (4.19-5.50); Red Cell Distribution Width 16.3 % (11.5-14.5); Segmented Neutrophils % 67.5 %
[2017-02-17 05:12] LABS: Calcium 7.6 mg/dL (8.6-10.3); Potassium 3.1 mEq/L (3.5-5.1)
[2017-02-17 05:58] LABS: Thyroid Stimulating Hormone 2.433 mcIU/mL (0.340-5.600)
[2017-02-17] MEDS: *HR* Dextrose 50 % in Water (Syg) 50 ML SYRINGE IVP PRN (06:42)
[2017-02-17] MEDS: Insulin LISPRO 300 UNITS/3 ML VIAL SQ SCH ×4 (08:49→21:04)
--- NOTE | 2017-02-17 09:08 | Nephrology Progress Note ---
Date of Encounter: 02/17/17 Time of Encounter: 08:45 - Assessment and Plan (1) Vppgd-pa-crtyckx kidney injury Current Visit: No Status: Acute KARI in setting of hypovolemia, hypotension superimposed on CKD 3-4 most likely in setting of DM and HTN, baseline creat 1.4-2.0, GFR 23-50. Temp cath placed yesterday followed by HD. Hyperkalemia in setting KARI and ACEI, K+ today 3.1- will give K rider. Bicarb improved will change IV to 0.9ns at 75cc/hr, continues to have decreased oral intake. Renal US suggests bladder outlet obstruction. Olivares-documented urine output 125 cc Qualifiers: Acute renal failure type: unspecified Chronic kidney disease stage: stage 3 (moderate) Qualified Code(s): N17.9 - Acute kidney failure, unspecified; N18.3 - Chronic kidney disease, stage 3 (moderate); N18.3 - Chronic kidney disease, stage 3 (moderate) (2) Hypovolemia Current Visit: No Status: Acute (3) Metabolic acidemia Current Visit: No Status: Acute Subjective Interval history: Laying quietly. S/P temporay catheter followed by HD initiation yesterday. Also aloowed for olivares catheter placement. Nursing states not much oral intake. Objective - Vital Signs Vital signs: Vital Signs Temp Pulse Resp BP Pulse Ox 02/17/17 07:44 97.6 F 75 12 132/81 99 02/17/17 05:34 97.6 F 02/17/17 04:28 94.4 F L 71 18 111/78 96 02/17/17 03:40 72 02/17/17 00:15 83 02/16/17 23:38 97.8 F 82 18 129/85 98 02/16/17 19:45 90 02/16/17 19:15 98 F 88 17 131/68 94 02/16/17 19:12 88 18 125/67 95 02/16/17 18:36 89 18 122/61 92 02/16/17 18:00 89 92 02/16/17 17:37 90 16 113/60 92 02/16/17 17:00 98.4 F 16 116/62 02/16/17 16:50 108/57 02/16/17 16:35 109/53 02/16/17 16:20 108/58 02/16/17 16:05 109/60 02/16/17 15:50 109/57 02/16/17 15:35 91/53 02/16/17 15:20 99/54 02/16/17 15:05 97/55 02/16/17 14:50 90/51 02/16/17 14:35 85/47 02/16/17 14:20 96.8 F L 16 80/46 02/16/17 14:10 94.6 F L 68 12 85/41 97 02/16/17 12:11 92.2 F L 65 16 76/48 94 02/16/17 10:04 91.1 F L Intake and Output 02/16/17 02/17/17 02/17/17 23:59 07:59 15:59 Intake Total 625 / 625 850 / 850 Output Total 125 / 125 575 / 575 Balance 500 / 500 275 / 275 Intake: IV Fluids 625 / 625 850 / 850 Sodium Bicarbonate 75 MEQ In 0. 425 / 425 650 / 650 45% Sodium Chloride 1000 Ml 1000 Ml 1,000 ML @ 75 mls/hr IVC .[id number] [facility] Rx#:[id number] Zosyn Premix 3.375 GM/200 ML 3. 200 / 200 200 / 200 375 gm In 200 ml @ 50 mls/hr IVPB Q12H [facility] Rx#:[id number] Output: Urine 0 / 0 200 / 200 Total Dialysis (HD) Output 0 / 0 Catheter 125 / 125 375 / 375 Urethral (Olivares) 125 / 125 150 / 150 Other: Blood Glucose* 124 133 Hemodialysis Net Fluid Removed 0 (mL) - General Appearance General appearance: Present: frail EENT: Present: mucous membranes moist Neck: Present: no JVD Respiratory: Present: clear Cardiology: Present: edema, regular rate, regular rhythm Additional Comments: trace pitting LE Gastrointestinal: Present: normoactive bowel sounds, no tenderness Integumentary: Present: warm and dry Psychiatric: Present: mood/affect appropriate, cooperative - Lab 02/17/17 04:25 02/17/17 04:25 Most recent lab results Calcium 7.6 mg/dL (8.6-10.3) L 02/17/17 04:25 Phosphorus 7.6 mg/dL (2.7-4.5) H 02/16/17 03:05 Magnesium 2.1 mg/dL (1.6-2.6) 02/16/17 03:05 Urine Creatinine 111 mg/dL 02/15/17 21:44 Urine Sodium 59.5 mEq/L 02/15/17 21:44 Consult Discharge Plan - Plan Referrals: Cecil Carter MD [Primary Care Provider] - 02/22/17 1:15 pm ()
[2017-02-17] MEDS: 0.9 % Sodium Chloride 1,000 ML IVC SCH (09:42)
[2017-02-17] MEDS: Insulin DETEMIR 100 UNIT/ML X5UNITS SQ SCH (16:08)
--- NOTE | 2017-02-17 18:42 | Internal Med Progress Note ---
Date of Encounter: 02/17/17 Time of Encounter: 18:39 - Assessment and plan (1) Acute renal failure Current Visit: Yes Status: Suspected Assessment and plan: Improvement with dialysis and olivares placement. Recheck labs tomorrow. Qualifiers: Acute renal failure type: with acute tubular necrosis Qualified Code(s): N17.0 - Acute kidney failure with tubular necrosis (2) Acute metabolic encephalopathy Current Visit: No Status: Acute Assessment and plan: Seems to be doing better today with treatment of infection and dialysis. Continue to monitor. (3) Hyperkalemia Current Visit: Yes Status: Resolved Assessment and plan: Improved. (4) Sepsis Current Visit: Yes Status: Resolved Assessment and plan: BP better today. Urine with gram positive cocci. Final cx pending. Qualifiers: Sepsis type: sepsis due to unspecified organism Qualified Code(s): A41.9 - Sepsis, unspecified organism (5) Hypotension Current Visit: No Status: Resolved Assessment and plan: Resolved. Qualifiers: Hypotension type: other hypotension type Qualified Code(s): I95.89 - Other hypotension (6) UTI (urinary tract infection) Current Visit: No Status: Suspected Assessment and plan: Final cx pending. Currently on IV abx. Qualifiers: Urinary tract infection type: acute cystitis Hematuria presence: with hematuria Qualified Code(s): N30.01 - Acute cystitis with hematuria (7) Hypokalemia Current Visit: Yes Status: Acute Assessment and plan: Replace today. (8) Anemia Current Visit: Yes Status: Acute Qualifiers: Anemia type: due to chronic kidney disease Chronic kidney disease stage: stage 5, not on chronic dialysis Qualified Code(s): N18.5 - Chronic kidney disease, stage 5; D63.1 - Anemia in chronic kidney disease; D63.1 - Anemia in chronic kidney disease - Subjective Interval history: Mr Neal is currently admitted for acute renal failure and sepsis due to UTI. He remains moderate to high risk due to potential for worsening clinical status. Mr Neal has no complaints at this time. His creatinine improved with dialysis and olivares. Urine culture pending. No fever or chills and BP has been better today. - Constitutional Vitals: Temp Pulse Resp BP Pulse Ox 99.5 F 91 16 135/78 100 02/17/17 17:56 02/17/17 16:03 02/17/17 16:03 02/17/17 16:03 02/17/17 16:03 General appearance: Present: A&O X 3, answers questions appropriately - Head Head exam: Present: normocephalic - Eye Eye exam: Present: EOMI, conjuntiva pink - ENT ENT exam: Present: mucous membranes dry - Respiratory Respiratory exam: Present: decreased breath sounds, CTAB. Absent: rales, rhonchi, wheezes - Cardiovascular Cardiovascular exam: Present: RRR. Absent: tachycardia - GI/Abdominal GI/Abdominal exam: Present: soft. Absent: tenderness - Extremities Exam Extremities exam: Present: warm. Absent: tenderness - Neurological Exam Neurological exam: Present: alert, oriented X3, no focal deficits Internal Medicine: Result - Labs CBC & Chem 7: 02/17/17 04:25 02/17/17 04:25 Labs: Short CBC 02/17/17 Range/Units 04:25 WBC 5.8 (4.3-11.1) K/mcL Hgb 8.0 L (12.9-16.9) g/dL Hct 24.2 L (37.5-50.1) % Plt Count 188 (140-400) K/mcL Neutrophils # 3.9 (1.6-8.9) K/mcL BMP 02/17/17 04:25 Sodium 139 Potassium 3.1 L D Chloride 106 Carbon Dioxide 26 BUN 55 H Creatinine 4.36 H Glucose 50 L Calcium 7.6 L - ABG Interpretation ABG results: PT/INR, D-dimer PT 10.8 Seconds (9.4-12.1) 02/16/17 03:05 Consult Discharge Plan - Plan Referrals: Cecil Carter MD [Primary Care Provider] - 02/22/17 1:15 pm ()
[2017-02-17] MEDS: Mirtazapine 15 MG TABLET PO SCH (21:04)
[2017-02-18] MEDS: Piperacillin/Tazobactam 3.375 GM/200 ML BAG IVPB SCH ×2 (01:00→12:27)
[2017-02-18] MEDS: 0.9 % Sodium Chloride 1,000 ML IVC SCH ×2 (08:20→12:30)
[2017-02-18] MEDS: Insulin LISPRO 300 UNITS/3 ML VIAL SQ SCH ×4 (08:27→19:01)
--- NOTE | 2017-02-18 09:26 | Nephrology Progress Note ---
Date of Encounter: 02/18/17 Time of Encounter: 08:45 - Assessment and Plan (1) Cmnyo-vn-ylnltox kidney injury Current Visit: No Status: Acute KARI in setting of hypovolemia, hypotension superimposed on CKD 3-4 most likely in setting of DM and HTN, baseline creat 1.4-2.0, GFR 23-50. Temp cath placed followed by HD on 02/17. Hyperkalemia in setting KARI and ACEI, Today labs pending. Renal US suggests bladder outlet obstruction. Spears-documented urine output 1075 cc Qualifiers: Acute renal failure type: unspecified Chronic kidney disease stage: stage 3 (moderate) Qualified Code(s): N17.9 - Acute kidney failure, unspecified; N18.3 - Chronic kidney disease, stage 3 (moderate); N18.3 - Chronic kidney disease, stage 3 (moderate) (2) Hypovolemia Current Visit: No Status: Acute (3) Metabolic acidemia Current Visit: No Status: Acute Subjective Interval history: Laying quietly. Minimal breakfast eaten. States feels good. Objective - Vital Signs Vital signs: Vital Signs Temp Pulse Resp BP Pulse Ox 02/18/17 07:48 97.9 F 87 16 137/85 99 02/18/17 03:43 98.2 F 81 18 143/83 100 02/17/17 23:57 98 F 75 20 127/76 100 02/17/17 19:00 99.3 F 86 19 132/78 100 02/17/17 17:56 99.5 F 02/17/17 16:03 100.9 F H 91 16 135/78 100 02/17/17 11:45 99.1 F 86 18 131/71 100 Intake and Output 02/17/17 02/18/17 02/18/17 23:59 07:59 15:59 Intake Total 200 / 200 120 / 120 1000 / 1000 Output Total 500 / 500 1075 / 1075 Balance -300 / -300 -955 / -955 1000 / 1000 Intake: IV Fluids 200 / 200 1000 / 1000 0.9 % Sodium Chloride 1,000 ML 1000 / 1000 @ 75 mls/hr IVC .[id number] [facility] Rx #:[id number] Zosyn Premix 3.375 GM/200 ML 3. 200 / 200 375 gm In 200 ml @ 50 mls/hr IVPB Q12H [facility] Rx#:[id number] Oral 120 / 120 Output: Catheter 500 / 500 1075 / 1075 Other: Meal Dinner Percent of Meal Consumed 0% Weight 69.5 kg Blood Glucose* 231 258 Patient Weight 02/18/17 23:59 Weight 69.5 kg - General Appearance General appearance: Present: chronically ill EENT: Present: mucous membranes moist Neck: Present: no JVD Respiratory: Present: clear Cardiology: Present: no edema, regular rate, regular rhythm Gastrointestinal: Present: normoactive bowel sounds, no tenderness Integumentary: Present: warm and dry Psychiatric: Present: mood/affect appropriate, cooperative - Lab 02/17/17 04:25 02/17/17 04:25 Most recent lab results Calcium 7.6 mg/dL (8.6-10.3) L 02/17/17 04:25 Phosphorus 7.6 mg/dL (2.7-4.5) H 02/16/17 03:05 Magnesium 2.1 mg/dL (1.6-2.6) 02/16/17 03:05 Urine Creatinine 111 mg/dL 02/15/17 21:44 Urine Sodium 59.5 mEq/L 02/15/17 21:44 - VTE Documentation of Mechanical Device: Intermittent pneumatic compression device Consult Discharge Plan - Plan Referrals: Cecil Carter MD [Primary Care Provider] - 02/22/17 1:15 pm ()
[2017-02-18 11:18] LABS: Basophils % 0.7 %; Eosinophils # 0.2 K/mcL (0.0-0.6); Eosinophils % 3.9 %; Hematocrit 24.5 % (37.5-50.1); Lymphocytes # 0.9 K/mcL (0.6-4.6); Lymphocytes % 15.1 %; Mean Corpuscular HGB Conc 32.7 g/dL (31.6-35.5); Mean Corpuscular Hemoglobin 29.9 pg (28.0-33.3); Mean Corpuscular Volume 91.4 fL (83.0-100.0); Mean Platelet Volume 9.5 fL (9.4-12.4); Monocytes # 0.6 K/mcL (0.0-1.3); Neutrophils # 4.2 K/mcL (1.6-8.9); Platelet Count 181 K/mcL (140-400); Red Blood Count 2.68 M/mcL (4.19-5.50); Segmented Neutrophils % 69.3 %
[2017-02-18 11:30] LABS: Albumin 2.9 g/dL (3.5-5.7); Albumin/Globulin Ratio 1.4 (1.1-2.2); Bilirubin,Total 0.4 mg/dL (0.3-1.0); Calcium 8.3 mg/dL (8.6-10.3); Globulin 2.1 g/dL (2.4-3.5); Potassium 3.7 mEq/L (3.5-5.1)
--- NOTE | 2017-02-18 16:17 | Internal Med Progress Note ---
Date of Encounter: 02/18/17 Time of Encounter: 10:30 - Assessment and plan (1) Acute renal failure Current Visit: Yes Status: Suspected Assessment and plan: Renal function about the same today. No dialysis today per renal. Continue to monitor urine output and labs. Qualifiers: Acute renal failure type: with acute tubular necrosis Qualified Code(s): N17.0 - Acute kidney failure with tubular necrosis (2) Acute metabolic encephalopathy Current Visit: No Status: Resolved Assessment and plan: Seems to be resolved at this point. (3) UTI (urinary tract infection) Current Visit: No Status: Acute Assessment and plan: Urine culture with staph warneri and yeast species. Currently on IV abx. Will add Diflucan to cover yeast (has had before in his urine). Qualifiers: Urinary tract infection type: acute cystitis Hematuria presence: with hematuria Qualified Code(s): N30.01 - Acute cystitis with hematuria (4) Hypokalemia Current Visit: Yes Status: Resolved Assessment and plan: Improved today. Following. (5) Anemia Current Visit: Yes Status: Acute Assessment and plan: H/H about the same today. Hold any transfusion for now. No signs of bleeding. Monitoring. Qualifiers: Anemia type: due to chronic kidney disease Chronic kidney disease stage: stage 5, not on chronic dialysis Qualified Code(s): N18.5 - Chronic kidney disease, stage 5; D63.1 - Anemia in chronic kidney disease; D63.1 - Anemia in chronic kidney disease (6) Diabetes Current Visit: No Status: Chronic Assessment and plan: Adjust insulin dosing. Qualifiers: Diabetes mellitus type: type 2 Diabetes mellitus complication status: with hyperglycemia Diabetes mellitus long-term insulin use: with long-term use Qualified Code(s): E11.65 - Type 2 diabetes mellitus with hyperglycemia; Z79.4 - senior living (current) use of insulin; Z79.4 - senior living (current) use of insulin ; Z79.4 - senior living (current) use of insulin; Z79.4 - senior living (current) use of insulin (7) HTN (hypertension) Current Visit: No Status: Chronic Assessment and plan: Adjust meds as needed. Qualifiers: Hypertension type: renovascular hypertension Qualified Code(s): I15.0 - Renovascular hypertension (8) Urinary retention Current Visit: Yes Status: Acute Assessment and plan: Tolerating olivares - Subjective Interval history: Mr Neal is currently admitted for acute renal failure and sepsis due to UTI. He remains moderate to high risk due to potential for worsening clinical status. Mr Neal just finished breakfast. He denies pain at this time. Wants to go back to sleep. No fever or chills. Making urine. Tolerating olivares. No GI issues today. - Constitutional Vitals: Temp Pulse Resp BP Pulse Ox 97.4 F L 78 14 152/91 100 02/18/17 12:33 02/18/17 12:33 02/18/17 12:33 02/18/17 12:33 02/18/17 12:33 General appearance: Present: A&O X 3, answers questions appropriately - Head Head exam: Present: normocephalic - Eye Eye exam: Present: EOMI, conjuntiva pink - ENT ENT exam: Present: mucous membranes dry - Respiratory Respiratory exam: Present: decreased breath sounds, CTAB. Absent: rales, rhonchi, wheezes - Cardiovascular Cardiovascular exam: Present: RRR. Absent: tachycardia - GI/Abdominal GI/Abdominal exam: Present: soft. Absent: tenderness - Extremities Exam Extremities exam: Present: warm. Absent: tenderness - Neurological Exam Neurological exam: Present: alert, oriented X3, no focal deficits - Skin Skin exam: Present: dry, warm. Absent: rash Internal Medicine: Result - Labs CBC & Chem 7: 02/18/17 11:09 02/18/17 11:09 Labs: Short CBC 02/18/17 Range/Units 11:09 WBC 6.1 (4.3-11.1) K/mcL Hgb 8.0 L (12.9-16.9) g/dL Hct 24.5 L (37.5-50.1) % Plt Count 181 (140-400) K/mcL Neutrophils # 4.2 (1.6-8.9) K/mcL BMP 02/18/17 11:09 Sodium 140 Potassium 3.7 Chloride 108 H Carbon Dioxide 21 L BUN 57 H Creatinine 4.81 H Glucose 214 H Calcium 8.3 L Liver Function 02/18/17 Range/Units 11:09 Total Bilirubin 0.4 (0.3-1.0) mg/dL AST 8 L (13-39) Units/L ALT 7 (7-52) Units/L Alkaline Phosphatase 84 (34-104) Units/L Albumin 2.9 L (3.5-5.7) g/dL - ABG Interpretation ABG results: PT/INR, D-dimer PT 10.8 Seconds (9.4-12.1) 02/16/17 03:05 - VTE Documentation of Mechanical Device: Intermittent pneumatic compression device Consult Discharge Plan - Plan Referrals: Cecil Carter MD [Primary Care Provider] - 02/22/17 1:15 pm ()
[2017-02-18] MEDS: Insulin DETEMIR 100 UNIT/ML X5UNITS SQ SCH (18:09)
[2017-02-18] MEDS: Fluconazole 100 MG/50 ML 100 MG/50 ML BAG IVPB SCH (18:12)
[2017-02-18] MEDS: Levofloxacin 500 MG/100 ML 500 MG/100 ML BAG IVPB SCH (18:14)
[2017-02-18] MEDS: Mirtazapine 15 MG TABLET PO SCH (19:00)
[2017-02-19] MEDS: 0.9 % Sodium Chloride 1,000 ML IVC SCH ×2 (00:41→15:37)
[2017-02-19 04:46] LABS: Hematocrit 24.9 % (37.5-50.1); Hemoglobin 8.1 g/dL (12.9-16.9); Mean Corpuscular HGB Conc 32.5 g/dL (31.6-35.5); Mean Corpuscular Hemoglobin 29.6 pg (28.0-33.3); Mean Corpuscular Volume 90.9 fL (83.0-100.0); Mean Platelet Volume 9.6 fL (9.4-12.4); Platelet Count 147 K/mcL (140-400); Red Blood Count 2.74 M/mcL (4.19-5.50); Red Cell Distribution Width 15.7 % (11.5-14.5)
[2017-02-19 04:59] LABS: Calcium 8.2 mg/dL (8.6-10.3); Potassium 3.9 mEq/L (3.5-5.1)
--- NOTE | 2017-02-19 07:38 | Nephrology Progress Note ---
Date of Encounter: 02/19/17 Time of Encounter: 07:36 - Assessment and Plan (1) Ryezh-ql-wbsphqz kidney injury Current Visit: No Status: Acute The patient's acute kidney injury superimposed on stage III chronic kidney disease. He appears avenger the recovery phase. Urine output is increasing in his azotemia is decreasing. He does not require dialysis today. His azotemia continues to improve we can remove the temporary dialysis catheter tomorrow. Qualifiers: Acute renal failure type: unspecified Chronic kidney disease stage: stage 3 (moderate) Qualified Code(s): N17.9 - Acute kidney failure, unspecified; N18.3 - Chronic kidney disease, stage 3 (moderate); N18.3 - Chronic kidney disease, stage 3 (moderate) Subjective Interval history: Patient reports no new complaints. He says his appetite is fair. His renal function continues to improve. Urine output is improving as well. Objective - Vital Signs Vital signs: Vital Signs Temp Pulse Resp BP Pulse Ox 02/19/17 04:46 97.5 F L 80 14 146/78 100 02/19/17 00:07 97.9 F 80 14 153/76 100 02/18/17 21:31 92 02/18/17 18:51 97.6 F 80 14 146/79 97 02/18/17 17:34 98.6 F 77 18 153/85 100 02/18/17 12:33 97.4 F L 78 14 152/91 100 02/18/17 07:48 97.9 F 87 16 137/85 99 Intake and Output 02/18/17 02/18/17 02/19/17 15:59 23:59 07:59 Intake Total 1120 / 1120 1000 / 1000 Output Total 675 / 675 250 / 250 900 / 900 Balance 445 / 445 -240 / -240 100 / 100 Intake: IV Fluids 1000 / 1000 1000 / 1000 0.9 % Sodium Chloride 1,000 ML 1000 / 1000 1000 / 1000 @ 75 mls/hr IVC .[id number] [facility] Rx #:[id number] Oral 120 / 120 10 10 Output: Urine 325 / 325 900 / 900 Catheter 350 / 350 250 / 250 Other: Meal Lunch Dinner Percent of Meal Consumed 10% 50% Weight 63.5 kg 63.5 kg Blood Glucose* 169 185 Patient Weight 02/19/17 23:59 Weight 63.5 kg - General Appearance Exam: Patient is alert and oriented. He is in no acute distress. Vital signs are stable. Lungs clear to auscultation. Heart regular rate and rhythm. Abdomen was benign. There is no peripheral edema. A Spears catheter is in place. There is a temporary dialysis catheter in the right internal jugular vein. - Lab 02/19/17 04:27 02/19/17 04:27 Most recent lab results Calcium 8.2 mg/dL (8.6-10.3) L 02/19/17 04:27 Phosphorus 7.6 mg/dL (2.7-4.5) H 02/16/17 03:05 Magnesium 2.1 mg/dL (1.6-2.6) 02/16/17 03:05 Urine Creatinine 111 mg/dL 02/15/17 21:44 Urine Sodium 59.5 mEq/L 02/15/17 21:44 - VTE Documentation of Mechanical Device: Intermittent pneumatic compression device Consult Discharge Plan - Plan Referrals: Cecil Carter MD [Primary Care Provider] - 02/22/17 1:15 pm ()
[2017-02-19] MEDS: Fluconazole 100 MG/50 ML 100 MG/50 ML BAG IVPB SCH (09:26)
[2017-02-19] MEDS: Insulin LISPRO 300 UNITS/3 ML VIAL SQ SCH ×4 (09:31→20:13)
--- NOTE | 2017-02-19 09:36 | Internal Med Progress Note ---
<Triston Cheung - Last Filed: 02/19/17 13:20> Date of Encounter: 02/19/17 Time of Encounter: 08:15 - Assessment and plan (1) Uooqs-qg-egccehp kidney injury Current Visit: No Status: Acute Assessment and plan: - SCr 8.84 / eGFR 6 on admission, significantly worsen compared to last SCr 1.54 / eGFR 50 on 12/03/16. - Likely pre-renal given noted hypotension. - Status post temporary hemodialysis catheter placed by IR and initiation of hemodialysis on 02/16/17. - Improves as SCr 4.25 / eGFR 14 today. - Per nephrology, patient appears to be in recovery phase and no hemodialysis is required today. Possible temporary hemodialysis catheter removal tomorrow if patient's azotemia continues to improve. - Continue to monitor renal function and electrolytes closely. Qualifiers: Acute renal failure type: unspecified Chronic kidney disease stage: stage 3 (moderate) Qualified Code(s): N17.9 - Acute kidney failure, unspecified; N18.3 - Chronic kidney disease, stage 3 (moderate); N18.3 - Chronic kidney disease, stage 3 (moderate) (2) Recurrent UTI (urinary tract infection) Current Visit: Yes Status: Acute Assessment and plan: - Large amount of leukocyte esterase noted on UA on admission. - Urine culture from 10/17/16 grew Pseudomonas aeruginosa and Proteus mirabilis. - Urine culture from 02/15/17 grew Staphylococcus warneri and yeast species - Continue levofloxacin (since 02/18/17) and fluconazole (since 02/18/17). Need total 14-day course of antimicrobial therapy for complicated UTI. (3) Sepsis Current Visit: Yes Status: Resolved Assessment and plan: - 2 SIRS criteria (WBC 12.6 on admission and temperature as low as 91.1) with lactic acid 0.3 - Likely secondary to UTI. - Urine culture from 02/15/17 grew Staphylococcus warneri and yeast species. - Blood cultures from 02/16/17: NGTD. - Continue hydration with IV fluid. - Continue levofloxacin (since 02/18/17) and fluconazole (since 02/18/17). Need total 14-day course of antimicrobial therapy for complicated UTI. Qualifiers: Sepsis type: sepsis due to unspecified organism Qualified Code(s): A41.9 - Sepsis, unspecified organism (4) Anemia Current Visit: Yes Status: Acute Assessment and plan: - Hgb 10.7 on admission but dropped to 8.0 on 02/17/17. - Likely dilutional from volume overload related to lack of urine output. - Remains stable since with Hgb 8.1 today. - No signs of bleeding noted. - Continue to monitor H&H closely and consider blood transfusion if Hgb < 7. Qualifiers: Anemia type: due to chronic kidney disease Chronic kidney disease stage: stage 5, not on chronic dialysis Qualified Code(s): N18.5 - Chronic kidney disease, stage 5; D63.1 - Anemia in chronic kidney disease; D63.1 - Anemia in chronic kidney disease (5) Bladder wall thickening Current Visit: Yes Status: Acute Assessment and plan: - Retroperitoneal US found diffuse urinary bladder wall thickening concerning of cystitis or chronic bladder outlet obstruction. - Patient has no urine output even after attempt of olivares placement by nurse. - Urinary catheter placed by urology on 02/16/17. - Good urine output (1675 mL yesterday). (6) Metabolic acidemia Current Visit: No Status: Acute Assessment and plan: - Non-anion gap metabolic acidosis with bicarbonate 12 on admission. - Improves as bicarbonate 20 today. - Continue to monitor electrolytes. (7) Hyperkalemia Current Visit: Yes Status: Resolved Assessment and plan: - K 6.9 on admission. - Likely secondary to current KARI on CKD. - Significantly improved as K 3.9 today. - Continue to monitor. (8) DM (diabetes mellitus), type 2 Current Visit: No Status: Chronic Assessment and plan: - Glucose 420 today. - Will increase levemir to 20 units qPM. - Continue current sliding scale insulin regimen with glucose monitoring. Qualifiers: Diabetes mellitus complication status: with hypoglycemia Diabetes mellitus complication detail: without coma Diabetes mellitus longterm insulin use: with intermediate accountant use Qualified Code(s): E11.649 - Type 2 diabetes mellitus with hypoglycemia without coma; Z79.4 - long term care social worker (current) use of insulin (9) DVT prophylaxis Current Visit: No Status: Acute Assessment and plan: - Continue SQ heparin. - Subjective Interval history: Patient was seen and examined this morning. Patient reports doing fine and has no complaint. Patient denies fever, chills, chest pain, abdominal pain, nausea, vomiting, diarrhea. - Constitutional Vitals: Temp Pulse Resp BP Pulse Ox 97.6 F 79 16 136/79 97 02/19/17 08:01 02/19/17 08:01 02/19/17 08:01 02/19/17 08:01 02/19/17 08:01 General appearance: Present: A&O X 3, no acute distress, answers questions appropriately - Head Head exam: Present: normal inspection - Eye Eye exam: Present: EOMI, conjuntiva pink, sclera anicteric - Neck Neck exam general surgery: Present: normal inspection, supple, trachea midline - Respiratory Respiratory exam: Present: CTAB. Absent: accessory muscle use - Cardiovascular Cardiovascular exam: Present: RRR, +S1, +S2 - GI/Abdominal GI/Abdominal exam: Present: normal bowel sounds, soft, no peritoneal signs. Absent: tenderness - Extremities Exam Extremities exam: Present: warm. Absent: cyanotic, pedal edema - Neurological Exam Neurological exam: Present: alert. Absent: facial droop, speech deficit - Skin Skin exam: Present: dry, warm Internal Medicine: Result - Labs CBC & Chem 7: 02/19/17 04:27 02/19/17 04:27 Labs: Short CBC 02/18/17 02/19/17 Range/Units 11:09 04:27 WBC 6.1 6.9 (4.3-11.1) K/mcL Hgb 8.0 L 8.1 L (12.9-16.9) g/dL Hct 24.5 L 24.9 L (37.5-50.1) % Plt Count 181 147 (140-400) K/mcL Neutrophils # 4.2 (1.6-8.9) K/mcL BMP 02/18/17 02/19/17 11:09 04:27 Sodium 140 138 Potassium 3.7 3.9 Chloride 108 H 105 Carbon Dioxide 21 L 20 L BUN 57 H 51 H Creatinine 4.81 H 4.25 H Glucose 214 H 397 H Calcium 8.3 L 8.2 L Liver Function 02/18/17 Range/Units 11:09 Total Bilirubin 0.4 (0.3-1.0) mg/dL AST 8 L (13-39) Units/L ALT 7 (7-52) Units/L Alkaline Phosphatase 84 (34-104) Units/L Albumin 2.9 L (3.5-5.7) g/dL - ABG Interpretation ABG results: PT/INR, D-dimer PT 10.8 Seconds (9.4-12.1) 02/16/17 03:05 - VTE Documentation of Mechanical Device: Intermittent pneumatic compression device Consult Discharge Plan - Plan Referrals: Cecil Carter MD [Primary Care Provider] - 02/22/17 1:15 pm () <Wyatt Dominguez - Last Filed: 02/19/17 14:31> Date of Encounter: 02/19/17 - Assessment and plan (1) Acute renal failure Current Visit: Yes Status: Suspected Qualifiers: Acute renal failure type: with acute tubular necrosis Qualified Code(s): N17.0 - Acute kidney failure with tubular necrosis (2) UTI (urinary tract infection) Current Visit: No Status: Acute Qualifiers: Urinary tract infection type: acute cystitis Hematuria presence: with hematuria Qualified Code(s): N30.01 - Acute cystitis with hematuria (3) Hypokalemia Current Visit: Yes Status: Resolved (4) Anemia Current Visit: Yes Status: Acute Qualifiers: Anemia type: due to chronic kidney disease Chronic kidney disease stage: stage 5, not on chronic dialysis Qualified Code(s): N18.5 - Chronic kidney disease, stage 5; D63.1 - Anemia in chronic kidney disease; D63.1 - Anemia in chronic kidney disease (5) Diabetes Current Visit: No Status: Chronic Qualifiers: Diabetes mellitus type: type 2 Diabetes mellitus complication status: with hyperglycemia Diabetes mellitus intermediate accountant insulin use: with longterm use Qualified Code(s): E11.65 - Type 2 diabetes mellitus with hyperglycemia; Z79.4 - [facility] (current) use of insulin; Z79.4 - [facility] (current) use of insulin ; Z79.4 - long term care social worker (current) use of insulin; Z79.4 - [facility] (current) use of insulin (6) HTN (hypertension) Current Visit: No Status: Chronic Qualifiers: Hypertension type: renovascular hypertension Qualified Code(s): I15.0 - Renovascular hypertension (7) Urinary retention Current Visit: Yes Status: Acute - Constitutional Vitals: Temp Pulse Resp BP Pulse Ox 98.0 F 76 16 146/76 96 02/19/17 10:38 02/19/17 10:38 02/19/17 10:38 02/19/17 10:38 02/19/17 10:38 Internal Medicine: Result - Labs CBC & Chem 7: 02/19/17 04:27 02/19/17 04:27 Labs: Short CBC 02/19/17 Range/Units 04:27 WBC 6.9 (4.3-11.1) K/mcL Hgb 8.1 L (12.9-16.9) g/dL Hct 24.9 L (37.5-50.1) % Plt Count 147 (140-400) K/mcL BMP 02/19/17 04:27 Sodium 138 Potassium 3.9 Chloride 105 Carbon Dioxide 20 L BUN 51 H Creatinine 4.25 H Glucose 397 H Calcium 8.2 L - ABG Interpretation ABG results: PT/INR, D-dimer PT 10.8 Seconds (9.4-12.1) 02/16/17 03:05 - Attending Attestation I examined this patient and my medical decision-making was reviewed with the Resident Physician on 02/19/17. I agree with the documented findings, disposition and treatment plan as described except to the extent set forth below. Mr Neal is currently admitted for acute encephalopathy and acute renal failure. He has been found to have UTI as well as bladder outlet obstruction. He remains moderate to high risk due to potential for worsening clinical status. Mr Neal is resting comfortably at this time. He had breakfast. He is making good urine. Renal function about the same. Denies CP or SOB. No fever or chills. Says his mother is in the hospital upstairs. Exam Alert. Comfortable Mucus membranes dry Heart reg No wheeze at this time Abd soft and nontender Olivares with clear urine I/P 1. Acute renal failure 2. Bladder outlet obstruction/BPH Further diagnoses and plan as above
[2017-02-19] MEDS ORDERED: Insulin DETEMIR 100 UNIT/ML X5UNITS SQ SCH (18:00)
[2017-02-19] MEDS: Mirtazapine 15 MG TABLET PO SCH (20:13)
[2017-02-19] MEDS: *HR* Dextrose 50 % in Water (Syg) 50 ML SYRINGE IVP PRN ×2 (22:36→22:45)
[2017-02-20 04:51] LABS: Hematocrit 23.3 % (37.5-50.1); Hemoglobin 7.6 g/dL (12.9-16.9); Mean Corpuscular HGB Conc 32.6 g/dL (31.6-35.5); Mean Corpuscular Hemoglobin 29.5 pg (28.0-33.3); Mean Corpuscular Volume 90.3 fL (83.0-100.0); Mean Platelet Volume 9.6 fL (9.4-12.4); Platelet Count 159 K/mcL (140-400); Red Blood Count 2.58 M/mcL (4.19-5.50); Red Cell Distribution Width 14.9 % (11.5-14.5)
[2017-02-20 05:03] LABS: Albumin 2.7 g/dL (3.5-5.7); Albumin/Globulin Ratio 1.5 (1.1-2.2); Bilirubin,Total 0.3 mg/dL (0.3-1.0); Globulin 1.8 g/dL (2.4-3.5); Total Protein 4.5 g/dL (6.4-8.9)
[2017-02-20] MEDS: 0.9 % Sodium Chloride 1,000 ML IVC SCH (05:24)
--- NOTE | 2017-02-20 07:35 | Nephrology Progress Note ---
Date of Encounter: 02/20/17 Time of Encounter: 07:33 - Assessment and Plan (1) Gkdtb-uq-yuysomz kidney injury Current Visit: No Status: Acute The patient's acute kidney injury superimposed on stage III chronic kidney disease. The patient's renal function continues to improve although had a somewhat slow pace. Urine output is adequate. He does not require dialysis. I am going to have the temporary dialysis catheter removed. He will receive some potassium supplementation. Qualifiers: Acute renal failure type: unspecified Chronic kidney disease stage: stage 3 (moderate) Qualified Code(s): N17.9 - Acute kidney failure, unspecified; N18.3 - Chronic kidney disease, stage 3 (moderate); N18.3 - Chronic kidney disease, stage 3 (moderate) Subjective Interval history: The patient denies any complaints. Urine output is 1.9 L. Creatinine has gone from 4.25 down to 4.19. Potassium is 3.0. Objective - Vital Signs Vital signs: Vital Signs Temp Pulse Resp BP Pulse Ox 02/20/17 07:20 97.8 F 67 14 178/94 100 02/20/17 03:27 98.0 F 66 16 158/82 95 02/19/17 23:18 97.5 F L 73 16 136/71 95 02/19/17 19:40 98.1 F 72 16 151/81 98 02/19/17 15:48 98.0 F 72 16 148/82 93 02/19/17 10:38 98.0 F 76 16 146/76 96 02/19/17 09:37 97 02/19/17 08:01 97.6 F 79 16 136/79 97 Intake and Output 02/19/17 02/19/17 02/20/17 15:59 23:59 07:59 Intake Total 1240 / 1240 240 / 240 1500 / 1500 Output Total 1000 / 1000 1650 / 1650 Balance 240 / 240 240 / 240 -150 / -150 Intake: IV Fluids 1000 / 1000 1000 / 1000 0.9 % Sodium Chloride 1,000 ML 1000 / 1000 1000 / 1000 @ 75 mls/hr IVC .[id number] [facility] Rx #:[id number] Oral 240 / 240 240 / 240 500 / 500 Output: Urine 1000 / 1000 Catheter 1650 / 1650 Other: Meal Lunch 4 anabel crackers with PB Percent of Meal Consumed 25% 100% Stool Size Large Stool Consistency loose liquid soft Stool Color Brown Yellow Weight 62.8 kg Blood Glucose* 420 133 96 Patient Weight 02/20/17 23:59 Weight 62.8 kg - General Appearance Exam: Patient is alert and oriented. He is in no acute distress. Lungs sounds otherwise clear. Heart regular rate and rhythm. Abdomen is benign. There is no peripheral edema. A Spears catheters in place. His temporary dialysis catheter in the right internal jugular vein. - Lab 02/20/17 04:20 02/20/17 04:20 Most recent lab results Calcium 8.0 mg/dL (8.6-10.3) L 02/20/17 04:20 Phosphorus 7.6 mg/dL (2.7-4.5) H 02/16/17 03:05 Magnesium 2.1 mg/dL (1.6-2.6) 02/16/17 03:05 Urine Creatinine 111 mg/dL 02/15/17 21:44 Urine Sodium 59.5 mEq/L 02/15/17 21:44 - VTE Documentation of Mechanical Device: Intermittent pneumatic compression device Consult Discharge Plan - Plan Referrals: Cecil Carter MD [Primary Care Provider] - 02/22/17 1:15 pm ()
[2017-02-20] MEDS: Insulin LISPRO 300 UNITS/3 ML VIAL SQ SCH ×4 (07:36→21:15)
[2017-02-20] MEDS: Fluconazole 100 MG/50 ML 100 MG/50 ML BAG IVPB SCH (08:30)
--- NOTE | 2017-02-20 08:36 | Internal Med Progress Note ---
<Triston Cheung - Last Filed: 02/20/17 12:54> Date of Encounter: 02/20/17 Time of Encounter: 08:15 - Assessment and plan (1) Vvceq-jz-kjefkoa kidney injury Current Visit: No Status: Acute Assessment and plan: - SCr 8.84 / eGFR 6 on admission, significantly worsen compared to last SCr 1.54 / eGFR 50 on 12/03/16. - Likely pre-renal given noted hypotension. - Status post temporary hemodialysis catheter placed by IR and initiation of hemodialysis on 02/16/17. - Continues to mprove as SCr 4.19 / eGFR 15 today with adequate urine output - Per nephrology, no hemodialysis is indicated and the temporary hemodialysis catheter can be removed today.. - Continue to monitor renal function and electrolytes closely. Possible discharge tomorrow if renal function continues to improve. Qualifiers: Acute renal failure type: unspecified Chronic kidney disease stage: stage 3 (moderate) Qualified Code(s): N17.9 - Acute kidney failure, unspecified; N18.3 - Chronic kidney disease, stage 3 (moderate); N18.3 - Chronic kidney disease, stage 3 (moderate) (2) Recurrent UTI (urinary tract infection) Current Visit: Yes Status: Acute Assessment and plan: - Large amount of leukocyte esterase noted on UA on admission. - Urine culture from 10/17/16 grew Pseudomonas aeruginosa and Proteus mirabilis. - Urine culture from 02/15/17 grew Staphylococcus warneri and yeast species - Continue levofloxacin (since 02/18/17) and fluconazole (since 02/18/17). Need total 14-day course of antimicrobial therapy for complicated UTI (anticipated to finish on 03/03/17) (3) Sepsis Current Visit: Yes Status: Resolved Assessment and plan: - 2 SIRS criteria (WBC 12.6 on admission and temperature as low as 91.1) with lactic acid 0.3 - Likely secondary to UTI. - Urine culture from 02/15/17 grew Staphylococcus warneri and yeast species. - Blood cultures from 02/16/17: NGTD. - Continue hydration with IV fluid. - Continue levofloxacin (since 02/18/17) and fluconazole (since 02/18/17). Need total 14-day course of antimicrobial therapy for complicated UTI. Qualifiers: Sepsis type: sepsis due to unspecified organism Qualified Code(s): A41.9 - Sepsis, unspecified organism (4) Anemia Current Visit: Yes Status: Acute Assessment and plan: - Hgb 10.7 on admission but dropped to 8.0 on 02/17/17. - Likely dilutional from volume overload related to lack of urine output. - Continue to driop with Hgb 7.6 today. - No signs of bleeding noted. - Continue to monitor H&H closely and consider blood transfusion if Hgb < 7. Qualifiers: Anemia type: due to chronic kidney disease Chronic kidney disease stage: stage 5, not on chronic dialysis Qualified Code(s): N18.5 - Chronic kidney disease, stage 5; D63.1 - Anemia in chronic kidney disease; D63.1 - Anemia in chronic kidney disease (5) Bladder wall thickening Current Visit: Yes Status: Acute Assessment and plan: - Retroperitoneal US found diffuse urinary bladder wall thickening concerning of cystitis or chronic bladder outlet obstruction. - Patient has no urine output even after attempt of olivares placement by nurse on 02/16/17 - Status post urinary catheter placement by urology on 02/16/17. - Good urine output (1900 mL yesterday). (6) Metabolic acidemia Current Visit: No Status: Acute Assessment and plan: - Non-anion gap metabolic acidosis with bicarbonate 12 on admission. - Significantly improves as bicarbonate 25 today. - Continue to monitor electrolytes. (7) Hyperkalemia Current Visit: Yes Status: Resolved Assessment and plan: - K 6.9 on admission. - Likely secondary to current KARI on CKD. - Resolved and actually became hypokalemic as K 3.0 today. 40 meq of KCl had been ordered. - Continue to monitor. (8) DM (diabetes mellitus), type 2 Current Visit: No Status: Chronic Assessment and plan: - Was noted to have hypoglycemia as low as 16 last night. - Will decrease levemir to 15 units qPM. - Continue current sliding scale insulin regimen with glucose monitoring. 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 - Subjective Interval history: Per nurse, patient was noted to be hypoglycemic (glucose as low as 16) overnight requiring gluctose. Patient was seen and examined this morning. Patient reports feeling tired. Patient recalls having dizziness while his glucose was low but that had resolved since. Patient denies fever, chills, chest pain, abdominal pain, nausea, vomiting. - Constitutional Vitals: Temp Pulse Resp BP Pulse Ox 97.8 F 67 14 178/94 100 02/20/17 07:20 02/20/17 07:20 02/20/17 07:20 02/20/17 07:20 02/20/17 07:20 General appearance: Present: A&O X 3, no acute distress, answers questions appropriately - Head Head exam: Present: normal inspection - Eye Eye exam: Present: EOMI, conjuntiva pink, sclera anicteric - Neck Neck exam general surgery: Present: normal inspection, supple, trachea midline - Respiratory Respiratory exam: Present: CTAB. Absent: accessory muscle use - Cardiovascular Cardiovascular exam: Present: RRR, +S1, +S2 - GI/Abdominal GI/Abdominal exam: Present: normal bowel sounds, soft, no peritoneal signs. Absent: tenderness - Extremities Exam Extremities exam: Present: warm. Absent: cyanotic - Neurological Exam Neurological exam: Present: alert. Absent: facial droop, speech deficit - Skin Skin exam: Present: dry, warm Internal Medicine: Result - Labs CBC & Chem 7: 02/20/17 04:20 02/20/17 04:20 Labs: Short CBC 02/20/17 Range/Units 04:20 WBC 7.7 (4.3-11.1) K/mcL Hgb 7.6 L (12.9-16.9) g/dL Hct 23.3 L (37.5-50.1) % Plt Count 159 (140-400) K/mcL BMP 02/20/17 04:20 Sodium 139 Potassium 3.0 L Chloride 109 H Carbon Dioxide 25 BUN 45 H Creatinine 4.19 H Glucose 80 Calcium 8.0 L Liver Function 02/20/17 Range/Units 04:20 Total Bilirubin 0.3 (0.3-1.0) mg/dL AST 7 L (13-39) Units/L ALT 7 (7-52) Units/L Alkaline Phosphatase 80 (34-104) Units/L Albumin 2.7 L (3.5-5.7) g/dL - ABG Interpretation ABG results: PT/INR, D-dimer PT 10.8 Seconds (9.4-12.1) 02/16/17 03:05 - VTE Documentation of Mechanical Device: Intermittent pneumatic compression device Consult Discharge Plan - Plan Referrals: Cecil Carter MD [Primary Care Provider] - 02/22/17 1:15 pm () <Wyatt Dominguez - Last Filed: 02/20/17 17:59> Date of Encounter: 02/20/17 - Assessment and plan (1) Acute renal failure Current Visit: Yes Status: Suspected Qualifiers: Acute renal failure type: with acute tubular necrosis Qualified Code(s): N17.0 - Acute kidney failure with tubular necrosis (2) UTI (urinary tract infection) Current Visit: No Status: Acute Qualifiers: Urinary tract infection type: acute cystitis Hematuria presence: with hematuria Qualified Code(s): N30.01 - Acute cystitis with hematuria (3) Hypokalemia Current Visit: Yes Status: Resolved (4) Anemia Current Visit: Yes Status: Acute Qualifiers: Anemia type: due to chronic kidney disease Chronic kidney disease stage: stage 5, not on chronic dialysis Qualified Code(s): N18.5 - Chronic kidney disease, stage 5; D63.1 - Anemia in chronic kidney disease; D63.1 - Anemia in chronic kidney disease (5) Diabetes Current Visit: No Status: Chronic Qualifiers: Diabetes mellitus type: type 2 Diabetes mellitus complication status: with hyperglycemia Diabetes mellitus equipment operator intermodal 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 insulin use: with longterm use Qualified Code(s): E11.65 - Type 2 diabetes mellitus with hyperglycemia; Z79.4 - [facility] (current) use of insulin; 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 ; 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; Z79.4 - [facility] (current) use of insulin (6) HTN (hypertension) Current Visit: No Status: Chronic Qualifiers: Hypertension type: renovascular hypertension Qualified Code(s): I15.0 - Renovascular hypertension (7) Urinary retention Current Visit: Yes Status: Acute - Constitutional Vitals: Temp Pulse Resp BP Pulse Ox 97.8 F 78 16 163/83 99 02/20/17 15:26 02/20/17 15:26 02/20/17 15:26 02/20/17 15:26 02/20/17 15:26 Internal Medicine: Result - Labs CBC & Chem 7: 02/20/17 13:55 02/20/17 04:20 Labs: Short CBC 02/20/17 02/20/17 Range/Units 04:20 13:55 WBC 7.7 (4.3-11.1) K/mcL Hgb 7.6 L 7.8 L (12.9-16.9) g/dL Hct 23.3 L 23.7 L (37.5-50.1) % Plt Count 159 (140-400) K/mcL BMP 02/20/17 04:20 Sodium 139 Potassium 3.0 L Chloride 109 H Carbon Dioxide 25 BUN 45 H Creatinine 4.19 H Glucose 80 Calcium 8.0 L Liver Function 02/20/17 Range/Units 04:20 Total Bilirubin 0.3 (0.3-1.0) mg/dL AST 7 L (13-39) Units/L ALT 7 (7-52) Units/L Alkaline Phosphatase 80 (34-104) Units/L Albumin 2.7 L (3.5-5.7) g/dL - ABG Interpretation ABG results: PT/INR, D-dimer PT 10.8 Seconds (9.4-12.1) 02/16/17 03:05 - Impressions Impressions Guidance Needle Placement Ultrasound 02/16/17 00:00 IMPRESSION: Ultrasound-guided non tunneled dialysis catheter placement performed. D/ / Kayode Reyna MD / Kayode Reyna MD Interpreting Provider: Kayode Reyna MD Insertion Non-Tunneled Catheter 02/16/17 00:00 IMPRESSION: Ultrasound-guided non tunneled dialysis catheter placement performed. D/ / Kayode Reyna MD / Kayode Reyna MD Interpreting Provider: Kayode Reyna MD - Attending Attestation I examined this patient and my medical decision-making was reviewed with the Resident Physician on 02/20/17. I agree with the documented findings, disposition and treatment plan as described except to the extent set forth below. Mr Daily is currently admitted for acute renal failure requiring dialysis. He remains moderate to high risk due to potential for worsening clinical status. Mr Daily is resting comfortably. No fever or chills. No CP or SOB at this time. No acute issues overnight. Renal function stable. No further dialysis to be done. Exam Alert. Comfortable Mucus membranes dry Heart reg No wheeze - lungs diminished Abd soft I/P 1. KARI 2. HTN Further diagnoses and plan as above Dialysis catheter to be removed Continue IV abx for UTI. Keep olivares in place
[2017-02-20 13:50] LABS: Magnesium 1.3 mg/dL (1.6-2.6)
[2017-02-20 14:03] LABS: Hematocrit 23.7 % (37.5-50.1); Hemoglobin 7.8 g/dL (12.9-16.9)
[2017-02-20] MEDS ORDERED: Magnesium Sulfate 1 GM in D5% in Water 100 ML IVPB ONE (16:34)
[2017-02-20] MEDS ORDERED: Insulin DETEMIR 100 UNIT/ML X5UNITS SQ SCH (18:00)
[2017-02-20] MEDS: Levofloxacin 500 MG/100 ML 500 MG/100 ML BAG IVPB SCH (18:20)
[2017-02-20] MEDS: Mirtazapine 15 MG TABLET PO SCH (21:13)
[2017-02-20] MEDS: Insulin DETEMIR 100 UNIT/ML X5UNITS SQ SCH (21:24)
[2017-02-21] MEDS: 0.9 % Sodium Chloride 1,000 ML IVC SCH ×3 (00:37→20:43)
[2017-02-21] MEDS: *HR* Dextrose 50 % in Water (Syg) 50 ML SYRINGE IVP PRN ×3 (03:55→11:11)
[2017-02-21 04:54] LABS: Albumin 2.8 g/dL (3.5-5.7); Albumin/Globulin Ratio 1.3 (1.1-2.2); Bilirubin,Total 0.3 mg/dL (0.3-1.0); Calcium 7.9 mg/dL (8.6-10.3); Globulin 2.2 g/dL (2.4-3.5); Potassium 3.2 mEq/L (3.5-5.1)
[2017-02-21 04:59] LABS: Hematocrit 24.5 % (37.5-50.1); Mean Corpuscular HGB Conc 32.7 g/dL (31.6-35.5); Mean Corpuscular Hemoglobin 29.5 pg (28.0-33.3); Mean Corpuscular Volume 90.4 fL (83.0-100.0); Mean Platelet Volume 9.6 fL (9.4-12.4); Platelet Count 153 K/mcL (140-400); Red Blood Count 2.71 M/mcL (4.19-5.50); Red Cell Distribution Width 15.4 % (11.5-14.5)
[2017-02-21] MEDS: Insulin LISPRO 300 UNITS/3 ML VIAL SQ SCH ×4 (07:50→20:42)
[2017-02-21] MEDS: Fluconazole 100 MG TABLET PO SCH (07:58)
--- NOTE | 2017-02-21 08:09 | Nephrology Progress Note ---
Date of Encounter: 02/21/17 Time of Encounter: 08:07 - Assessment and Plan (1) Plusc-yh-vfrzgxe kidney injury Current Visit: No Status: Acute The patient's acute kidney injury superimposed on stage III chronic kidney disease. The patient continues in his recovery phase of acute kidney injury. He will require additional potassium supplementation. He no longer requires hemodialysis. Qualifiers: Acute renal failure type: unspecified Chronic kidney disease stage: stage 3 (moderate) Qualified Code(s): N17.9 - Acute kidney failure, unspecified; N18.3 - Chronic kidney disease, stage 3 (moderate); N18.3 - Chronic kidney disease, stage 3 (moderate) Subjective Interval history: The patient reports no new complaints. Renal function continues to improve. Potassium is still low. Urine output is excellent. The temporary dialysis catheter was removed yesterday. Objective - Vital Signs Vital signs: Vital Signs Temp Pulse Resp BP Pulse Ox 02/21/17 07:30 97.4 F L 62 13 155/82 95 02/21/17 03:42 97.9 F 63 16 156/86 100 02/21/17 00:20 97.6 F 72 16 164/90 98 02/20/17 21:49 99 02/20/17 20:21 97.6 F 73 16 165/79 99 02/20/17 15:26 97.8 F 78 16 163/83 99 02/20/17 11:15 98.2 F 71 14 178/87 100 02/20/17 08:41 100 Intake and Output 02/20/17 02/21/17 02/21/17 23:59 07:59 15:59 Intake Total 352 / 352 1472 / 1472 Output Total 900 / 900 730 / 730 Balance -548 / -548 742 / 742 Intake: IV Fluids 202 / 202 1000 / 1000 0.9 % Sodium Chloride 1,000 ML 1000 / 1000 @ 75 mls/hr IVC .[id number] [facility] Rx #:[id number] Levaquin Premix 500mg/100mL 500 100 / 100 mg In 100 ml @ 100 mls/hr IVPB Q48H [facility] Rx#:[id number] Magnesium Sulfate 1 GM In 102 / 102 Dextrose 5% 100 ML @ 100 mls/hr IVPB ONCE ONE Rx#:[id number] Oral 150 / 150 472 / 472 Output: Catheter 900 / 900 730 / 730 Other: Meal Dinner Percent of Meal Consumed 15% Weight 62.9 kg Blood Glucose* 96 66 Patient Weight 02/21/17 23:59 Weight 62.9 kg - General Appearance Exam: Patient is alert and oriented. He is in no acute distress. Lungs coarse breath sounds. Heart regular rate and rhythm. Abdomen is benign. There is minimal lower extremity swelling. A Spears catheter is in place. - Lab 02/21/17 04:23 02/21/17 04:23 Most recent lab results Calcium 7.9 mg/dL (8.6-10.3) L 02/21/17 04:23 Phosphorus 7.6 mg/dL (2.7-4.5) H 02/16/17 03:05 Magnesium 1.5 mg/dL (1.6-2.6) L 02/21/17 04:23 Urine Creatinine 111 mg/dL 02/15/17 21:44 Urine Sodium 59.5 mEq/L 02/15/17 21:44 - VTE Documentation of Mechanical Device: Intermittent pneumatic compression device Consult Discharge Plan - Plan Referrals: Cecil Carter MD [Primary Care Provider] - 02/22/17 1:15 pm ()
--- NOTE | 2017-02-21 09:04 | Internal Med Progress Note ---
<Triston Cheung - Last Filed: 02/21/17 11:41> Date of Encounter: 02/21/17 Time of Encounter: 08:30 - Assessment and plan (1) Vsrbg-wu-dxdftzd kidney injury Current Visit: No Status: Acute Assessment and plan: - SCr 8.84 / eGFR 6 on admission, significantly worsen compared to last SCr 1.54 / eGFR 50 on 12/03/16. - Likely pre-renal given noted hypotension. - Status post temporary hemodialysis catheter placed by IR and initiation of hemodialysis on 02/16/17. - Continues to improve as SCr 3.65 / eGFR 17 today with adequate urine output. - Temporary hemodialysis catheter was removed on 02/20/17. No hemodialysis is indicated per nephrology. - Continue to monitor renal function and electrolytes closely. Possible discharge tomorrow if renal function continues to improve. Qualifiers: Acute renal failure type: unspecified Chronic kidney disease stage: stage 3 (moderate) Qualified Code(s): N17.9 - Acute kidney failure, unspecified; N18.3 - Chronic kidney disease, stage 3 (moderate); N18.3 - Chronic kidney disease, stage 3 (moderate) (2) Recurrent UTI (urinary tract infection) Current Visit: Yes Status: Acute Assessment and plan: - Large amount of leukocyte esterase noted on UA on admission. - Urine culture from 10/17/16 grew Pseudomonas aeruginosa and Proteus mirabilis. - Urine culture from 02/15/17 grew Staphylococcus warneri and yeast species - Continue levofloxacin (since 02/18/17) and fluconazole (since 02/18/17). Need total 14-day course of antimicrobial therapy for complicated UTI (anticipated to finish on 03/03/17) (3) Bladder wall thickening Current Visit: Yes Status: Acute Assessment and plan: - Retroperitoneal US found diffuse urinary bladder wall thickening concerning of cystitis or chronic bladder outlet obstruction. - Patient has no urine output even after attempt of olivares placement by nurse on 02/16/17 - Status post urinary catheter placement by urology on 02/16/17. - Continue to have good urine output. - Nephrology has concern about chronic urinary outlet obstruction as the potential cause of KARI on admission. The recommendation is to keep urinary catheter on discharge and have patient follow up with urology outpatiently. (4) Sepsis Current Visit: Yes Status: Resolved Assessment and plan: - 2 SIRS criteria (WBC 12.6 on admission and temperature as low as 91.1) with lactic acid 0.3 - Likely secondary to UTI. - Urine culture from 02/15/17 grew Staphylococcus warneri and yeast species. - Blood cultures from 02/16/17: NGTD. - Continue hydration with IV fluid. - Continue levofloxacin (since 02/18/17) and fluconazole (since 02/18/17). Need total 14-day course of antimicrobial therapy for complicated UTI. Qualifiers: Sepsis type: sepsis due to unspecified organism Qualified Code(s): A41.9 - Sepsis, unspecified organism (5) Anemia Current Visit: Yes Status: Acute Assessment and plan: - Hgb 10.7 on admission but dropped to 8.0 on 02/17/17. - Stable with Hgb 8.0 today. - No signs of bleeding noted. - Continue to monitor H&H closely and consider blood transfusion if Hgb < 7. Qualifiers: Anemia type: due to chronic kidney disease Chronic kidney disease stage: stage 5, not on chronic dialysis Qualified Code(s): N18.5 - Chronic kidney disease, stage 5; D63.1 - Anemia in chronic kidney disease; D63.1 - Anemia in chronic kidney disease (6) Hypokalemia Current Visit: Yes Status: Resolved Assessment and plan: - K 3.0 on 02/20/17. - Slightly improves as K 3.2 today. - Replace with KCl 40 meq IV. (7) Hypomagnesemia Current Visit: Yes Status: Acute Assessment and plan: - Mg 1.3 on 02/20/17. - Slightly improves as Mg 1.5 today. - Replace with 2 gram of MgSO4 IV. - Continue to monitor. (8) Metabolic acidemia Current Visit: No Status: Resolved Assessment and plan: - Non-anion gap metabolic acidosis with bicarbonate 12 on admission. - Resolved as bicarbonate 24 today. (9) DM (diabetes mellitus), type 2 Current Visit: No Status: Chronic Assessment and plan: - Noted to have hypoglycemic episodes. - Continue basal and sliding scale insulin regimen with glucose monitoring. 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 - PT/OT consult to evaluate and treat. (11) DVT prophylaxis Current Visit: No Status: Acute Assessment and plan: - Continue SQ heparin. - Subjective Interval history: Patient was seen and examined this morning. Patient reports no complaint. Patient denies fever, chills, chest pain, abdominal pain, nausea, vomiting, diarrhea. Patient reports being bed rest and not ambulating for a year. - Constitutional Vitals: Temp Pulse Resp BP Pulse Ox 97.4 F L 62 13 155/82 95 02/21/17 07:30 02/21/17 07:30 02/21/17 07:30 02/21/17 07:30 02/21/17 08:08 General appearance: Present: A&O X 3, no acute distress, answers questions appropriately - Head Head exam: Present: normal inspection - Eye Eye exam: Present: EOMI, conjuntiva pink, sclera anicteric - Neck Neck exam general surgery: Present: normal inspection, supple, trachea midline - Respiratory Respiratory exam: Present: CTAB. Absent: accessory muscle use - Cardiovascular Cardiovascular exam: Present: RRR - GI/Abdominal GI/Abdominal exam: Present: normal bowel sounds, soft, no peritoneal signs. Absent: tenderness - Extremities Exam Extremities exam: Present: warm. Absent: cyanotic, pedal edema - Neurological Exam Neurological exam: Present: alert. Absent: facial droop, speech deficit - Skin Skin exam: Present: dry, warm Internal Medicine: Result - Labs CBC & Chem 7: 02/21/17 04:23 02/21/17 04:23 Labs: Short CBC 02/20/17 02/21/17 Range/Units 13:55 04:23 WBC 7.6 (4.3-11.1) K/mcL Hgb 7.8 L 8.0 L (12.9-16.9) g/dL Hct 23.7 L 24.5 L (37.5-50.1) % Plt Count 153 (140-400) K/mcL BMP 02/20/17 02/21/17 04:20 04:23 Sodium 139 140 Potassium 3.0 L 3.2 L Chloride 109 H 110 H Carbon Dioxide 25 24 BUN 45 H 35 H Creatinine 4.19 H 3.65 H Glucose 80 140 H Calcium 8.0 L 7.9 L Liver Function 02/20/17 02/21/17 Range/Units 04:20 04:23 Total Bilirubin 0.3 0.3 (0.3-1.0) mg/dL AST 7 L 8 L (13-39) Units/L ALT 7 6 L (7-52) Units/L Alkaline Phosphatase 80 78 (34-104) Units/L Albumin 2.7 L 2.8 L (3.5-5.7) g/dL - ABG Interpretation ABG results: PT/INR, D-dimer PT 10.8 Seconds (9.4-12.1) 02/16/17 03:05 - Impressions Impressions Guidance Needle Placement Ultrasound 02/16/17 00:00 IMPRESSION: Ultrasound-guided non tunneled dialysis catheter placement performed. D/ / Kayode Reyna MD / Kayode Reyna MD Interpreting Provider: Kayode Reyan MD Insertion Non-Tunneled Catheter 02/16/17 00:00 IMPRESSION: Ultrasound-guided non tunneled dialysis catheter placement performed. D/ / Kayode Reyna MD / Kayode Reyna MD Interpreting Provider: Kayode Reyna MD - VTE Documentation of Mechanical Device: Intermittent pneumatic compression device Consult Discharge Plan - Plan Referrals: Cecil Carter MD [Primary Care Provider] - 02/22/17 1:15 pm () <Wyatt Dominguez - Last Filed: 02/21/17 17:01> Date of Encounter: 02/21/17 - Assessment and plan (1) Acute renal failure Current Visit: Yes Status: Suspected Qualifiers: Acute renal failure type: with acute tubular necrosis Qualified Code(s): N17.0 - Acute kidney failure with tubular necrosis (2) UTI (urinary tract infection) Current Visit: No Status: Acute Qualifiers: Urinary tract infection type: acute cystitis Hematuria presence: with hematuria Qualified Code(s): N30.01 - Acute cystitis with hematuria (3) Hypokalemia Current Visit: Yes Status: Resolved (4) Anemia Current Visit: Yes Status: Acute Qualifiers: Anemia type: due to chronic kidney disease Chronic kidney disease stage: stage 5, not on chronic dialysis Qualified Code(s): N18.5 - Chronic kidney disease, stage 5; D63.1 - Anemia in chronic kidney disease; D63.1 - Anemia in chronic kidney disease (5) Diabetes Current Visit: No Status: Chronic Qualifiers: Diabetes mellitus type: type 2 Diabetes mellitus complication status: with hyperglycemia Diabetes mellitus group home insulin use: with group home use Qualified Code(s): E11.65 - Type 2 diabetes mellitus with hyperglycemia; Z79.4 - [facility] (current) use of insulin; 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 ; Z79.4 - [facility] (current) use of insulin; 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 (6) HTN (hypertension) Current Visit: No Status: Chronic Qualifiers: Hypertension type: renovascular hypertension Qualified Code(s): I15.0 - Renovascular hypertension - Constitutional Vitals: Temp Pulse Resp BP Pulse Ox 97.4 F L 71 14 156/78 98 02/21/17 16:11 02/21/17 16:11 02/21/17 16:11 02/21/17 16:11 02/21/17 16:11 Internal Medicine: Result - Labs CBC & Chem 7: 02/21/17 04:23 02/21/17 04:23 Labs: Short CBC 02/21/17 Range/Units 04:23 WBC 7.6 (4.3-11.1) K/mcL Hgb 8.0 L (12.9-16.9) g/dL Hct 24.5 L (37.5-50.1) % Plt Count 153 (140-400) K/mcL BMP 02/21/17 04:23 Sodium 140 Potassium 3.2 L Chloride 110 H Carbon Dioxide 24 BUN 35 H Creatinine 3.65 H Glucose 140 H Calcium 7.9 L Liver Function 02/21/17 Range/Units 04:23 Total Bilirubin 0.3 (0.3-1.0) mg/dL AST 8 L (13-39) Units/L ALT 6 L (7-52) Units/L Alkaline Phosphatase 78 (34-104) Units/L Albumin 2.8 L (3.5-5.7) g/dL - ABG Interpretation ABG results: PT/INR, D-dimer PT 10.8 Seconds (9.4-12.1) 02/16/17 03:05 - Attending Attestation I examined this patient and my medical decision-making was reviewed with the Resident Physician on 02/21/17. I agree with the documented findings, disposition and treatment plan as described except to the extent set forth below. Mr Neal is currently admitted for acute renal failure and UTI. He remains moderate to high risk due to potential for worsening clinical status. Mr Neal is feeling OK. He was slightly hypothermic again today but improved. BP remained stable. No CP or SOB. Dialysis stopped. Exam Alert. Comfortable Mucus membranes dry Heart reg No wheeze Abd soft I/P 1. ARF 2. UTI Further diagnoses and plan as above Anticipate d/c in next 24-48 hours.
[2017-02-21] MEDS: Insulin DETEMIR 100 UNIT/ML X5UNITS SQ SCH (20:41)
[2017-02-21] MEDS: Mirtazapine 15 MG TABLET PO SCH (20:42)
[2017-02-22 04:04] LABS: Hematocrit 21.5 % (37.5-50.1); Mean Corpuscular HGB Conc 32.6 g/dL (31.6-35.5); Mean Corpuscular Hemoglobin 29.9 pg (28.0-33.3); Mean Corpuscular Volume 91.9 fL (83.0-100.0); Mean Platelet Volume 9.1 fL (9.4-12.4); Platelet Count 142 K/mcL (140-400); Red Blood Count 2.34 M/mcL (4.19-5.50); Red Cell Distribution Width 15.2 % (11.5-14.5)
[2017-02-22 04:27] LABS: Calcium 7.8 mg/dL (8.6-10.3); Potassium 3.4 mEq/L (3.5-5.1)
[2017-02-22] MEDS: *HR* Dextrose 50 % in Water (Syg) 50 ML SYRINGE IVP PRN ×2 (08:18→08:19)
[2017-02-22] MEDS: Insulin LISPRO 300 UNITS/3 ML VIAL SQ SCH ×4 (08:18→20:31)
[2017-02-22] MEDS: Fluconazole 100 MG TABLET PO SCH (08:24)
[2017-02-22] MEDS: 0.9 % Sodium Chloride 1,000 ML IVC SCH (08:26)
[2017-02-22 10:12] LABS: Hematocrit 21.5 % (37.5-50.1); Hemoglobin 6.9 g/dL (12.9-16.9)
--- NOTE | 2017-02-22 10:15 | Nephrology Progress Note ---
Date of Encounter: 02/22/17 Time of Encounter: 09:45 - Assessment and Plan (1) [id number] kidney injury Current Visit: No Status: Acute KARI in setting of hypovolemia, hypotension superimposed on CKD 3-4 most likely in setting of DM and HTN, baseline creat 1.4-2.0, GFR 23-50. Renal fct improving , creat 3.47. Urine output 1880 cc. Qualifiers: Acute renal failure type: unspecified Chronic kidney disease stage: stage 3 (moderate) Qualified Code(s): N17.9 - Acute kidney failure, unspecified; N18.3 - Chronic kidney disease, stage 3 (moderate); N18.3 - Chronic kidney disease, stage 3 (moderate) (2) Hypovolemia Current Visit: No Status: Acute Subjective Interval history: Laying quietly. Minimal breakfast eaten, states does not have appetite. States feels good. Objective - Vital Signs Vital signs: Vital Signs Temp Pulse Resp BP Pulse Ox 02/22/17 07:11 98.4 F 84 17 164/71 93 02/22/17 04:08 99.3 F 90 16 166/81 95 02/22/17 00:23 98.9 F 82 16 149/78 94 02/21/17 18:56 98.7 F 95 18 163/81 94 02/21/17 16:11 97.4 F L 71 14 156/78 98 02/21/17 15:21 95.0 F L 02/21/17 13:45 94.6 F L 02/21/17 11:56 94.1 F L 02/21/17 11:33 93.4 F L 57 13 136/69 97 Intake and Output 02/21/17 02/22/17 02/22/17 23:59 07:59 15:59 Intake Total 360 / 360 1000 / 1000 40 / 40 Output Total 450 / 450 850 / 850 Balance -90 / -90 150 / 150 40 / 40 Intake: IV Fluids 1000 / 1000 0.9 % Sodium Chloride 1,000 ML 1000 / 1000 @ 75 mls/hr IVC .[id number] [facility] Rx #:[id number] Oral 360 / 360 40 / 40 Output: Urine 0 / 0 Catheter 450 / 450 850 / 850 Other: Meal Dinner Breakfast Percent of Meal Consumed 50% 0% Weight 62.2 kg Blood Glucose* 170 180 Patient Weight 01/04/18 23:59 Weight 62.2 kg - General Appearance General appearance: Present: chronically ill EENT: Present: mucous membranes moist Neck: Present: no JVD Respiratory: Present: clear Cardiology: Present: no edema, regular rate, regular rhythm Gastrointestinal: Present: normoactive bowel sounds, no tenderness Integumentary: Present: warm and dry Psychiatric: Present: mood/affect appropriate, cooperative - Lab 02/22/17 03:53 02/22/17 04:00 Most recent lab results Calcium 7.8 mg/dL (8.6-10.3) L 02/22/17 04:00 Phosphorus 7.6 mg/dL (2.7-4.5) H 02/16/17 03:05 Magnesium 1.5 mg/dL (1.6-2.6) L 02/21/17 04:23 Urine Creatinine 111 mg/dL 02/15/17 21:44 Urine Sodium 59.5 mEq/L 02/15/17 21:44 - VTE Documentation of Mechanical Device: Intermittent pneumatic compression device Consult Discharge Plan - Plan Referrals: Cecil Carter MD [Primary Care Provider] - 02/22/17 1:15 pm ()
[2017-02-22] MEDS ORDERED: 0.9 % Sodium Chloride 250 ML ONE (12:31)
[2017-02-22] MEDS ORDERED: D5% in Water 1,000 ML IVC SCH (13:15)
--- NOTE | 2017-02-22 13:51 | Internal Med Progress Note ---
<Triston Cheung - Last Filed: 02/22/17 15:06> Date of Encounter: 02/22/17 Time of Encounter: 09:00 - Assessment and plan (1) Anemia Current Visit: Yes Status: Acute Assessment and plan: - Hgb 10.7 on admission but dropped to 8.0 on 02/17/17. - Hgb dropped to 7.0 and 6.9 on repeat. - No signs of bleeding reported. - Suspect to be dilutional given patient received almost net 2L yesterday but patient is symptomatic (lethargic and dizziness). - Patient did have history of severe esophagitis in November 2016 requiring PPI BID, Carafact and follow-up EGD in 3 months per GI. - Start Protonix IV BID and check stool occult test. - Will give one unit of pRBC transfusion. - Continue to monitor H&H closely and consider more blood transfusion if Hgb < 7. Qualifiers: Anemia type: due to chronic kidney disease Chronic kidney disease stage: stage 5, not on chronic dialysis Qualified Code(s): N18.5 - Chronic kidney disease, stage 5; D63.1 - Anemia in chronic kidney disease; D63.1 - Anemia in chronic kidney disease (2) Esophagitis Current Visit: No Status: Acute Assessment and plan: - EGD on 11/30/16 found LA Grade D esophagitis with no bleeding in the lower lower esophagus extending to GE junction. Non-obstructive Schatzki ring was also seen at GE junction. - GI recommended PPI BID, Carafact and follow-up EGD in 3 months at that time. - Patient denies dysphagia, odynophagia, hematemesis, abdominal pain. - Start Protonix IV BID and check stool occult test. - Continue Carafact. - May consider GI consult for possible EGD, especially if patient's anemia persists and/or positive stool occult test. (3) Ivykg-[id number]-hbnxtwp kidney injury Current Visit: No Status: Acute Assessment and plan: - SCr 8.84 / eGFR 6 on admission, significantly worsen compared to last SCr 1.54 / eGFR 50 on 12/03/16. - Likely pre-renal given noted hypotension. - Status post temporary hemodialysis catheter placed by IR and initiation of hemodialysis on 02/16/17. - Continues to improve as SCr 3.47 / eGFR 18 today with adequate urine output. - Temporary hemodialysis catheter was removed on 02/20/17. No hemodialysis is indicated per nephrology. - Continue to monitor renal function and electrolytes closely. Qualifiers: Acute renal failure type: unspecified Chronic kidney disease stage: stage 3 (moderate) Qualified Code(s): N17.9 - Acute kidney failure, unspecified; N18.3 - Chronic kidney disease, stage 3 (moderate); N18.3 - Chronic kidney disease, stage 3 (moderate) (4) Recurrent UTI (urinary tract infection) Current Visit: Yes Status: Acute Assessment and plan: - Large amount of leukocyte esterase noted on UA on admission. - Urine culture from 10/17/16 grew Pseudomonas aeruginosa and Proteus mirabilis. - Urine culture from 02/15/17 grew Staphylococcus warneri and yeast species - Continue levofloxacin (since 02/18/17) and fluconazole (since 02/18/17). Need total 14-day course of antimicrobial therapy for complicated UTI (anticipated to finish on 03/03/17) (5) Bladder wall thickening Current Visit: Yes Status: Acute Assessment and plan: - Retroperitoneal US found diffuse urinary bladder wall thickening concerning of cystitis or chronic bladder outlet obstruction. - Patient has no urine output even after attempt of olivares placement by nurse on 02/16/17 - Status post urinary catheter placement by urology on 02/16/17. - Continue to have good urine output. - Nephrology has concern about chronic urinary outlet obstruction as the potential cause of KARI on admission. The recommendation is to keep urinary catheter on discharge and have patient follow up with urology outpatiently. (6) Sepsis Current Visit: Yes Status: Resolved Assessment and plan: - 2 SIRS criteria (WBC 12.6 on admission and temperature as low as 91.1) with lactic acid 0.3 - Likely secondary to UTI. - Urine culture from 02/15/17 grew Staphylococcus warneri and yeast species. - Blood cultures from 02/16/17: NGTD. - Continue hydration with IV fluid. - Continue levofloxacin (since 02/18/17) and fluconazole (since 02/18/17). Need total 14-day course of antimicrobial therapy for complicated UTI. Qualifiers: Sepsis type: sepsis due to unspecified organism Qualified Code(s): A41.9 - Sepsis, unspecified organism (7) Hypokalemia Current Visit: Yes Status: Resolved Assessment and plan: - K 3.0 on 02/20/17. - Improves as K 3.4 today. - Replace with KCl 40 meq IV. - Continue to monitor. (8) Hypomagnesemia Current Visit: Yes Status: Acute Assessment and plan: - Mg 1.3 on 02/20/17. - Slightly improves as Mg 1.5 yesterday. - Continue to monitor. (9) Metabolic acidemia Current Visit: No Status: Resolved Assessment and plan: - Non-anion gap metabolic acidosis with bicarbonate 12 on admission. - Resolved as bicarbonate 23 today. (10) DM (diabetes mellitus), type 2 Current Visit: No Status: Chronic Assessment and plan: - Continue to have multiple hypoglycemic episodes. - Decrease insulin Levemir to 10 units qHS. - Continue sliding scale insulin regimen with glucose monitoring. Qualifiers: Diabetes mellitus complication status: with hypoglycemia Diabetes mellitus complication detail: without coma Diabetes mellitus care home insulin use: with terminal clerk use Qualified Code(s): E11.649 - Type 2 diabetes mellitus with hypoglycemia without coma; Z79.4 - MCC (current) use of insulin (11) DVT prophylaxis Current Visit: No Status: Acute Assessment and plan: - Continue SQ heparin. - Subjective Interval history: Patient was seen and examined this morning. Patient reports being tired with occasional dizziness. Patient was noted to have POC glucose as low as 25 this morning but that increased to 180 after one amp of gluctose IV was given. Patient denies hemoptysis, hematemesis, hematochezia, melena or other sign of active bleeding. Patient denies fever, chills, chest pain, shortness of breath. - Constitutional Vitals: Temp Pulse Resp BP Pulse Ox 98.9 F 75 16 170/88 95 02/22/17 12:37 02/22/17 12:37 02/22/17 12:37 02/22/17 12:37 02/22/17 12:37 General appearance: Present: cachectic (Pale), cooperative, A&O X 3, no acute distress, answers questions appropriately - Head Head exam: Present: normal inspection - Eye Eye exam: Present: EOMI, conjuntiva pink, sclera anicteric - Neck Neck exam general surgery: Present: normal inspection, supple, trachea midline - Respiratory Respiratory exam: Present: CTAB. Absent: accessory muscle use - Cardiovascular Cardiovascular exam: Present: RRR, +S1, +S2 - GI/Abdominal GI/Abdominal exam: Present: normal bowel sounds, soft, no peritoneal signs. Absent: tenderness - Extremities Exam Extremities exam: Present: warm. Absent: cyanotic, pedal edema - Neurological Exam Neurological exam: Present: alert. Absent: facial droop, speech deficit - Skin Skin exam: Present: dry, warm Internal Medicine: Result - Labs CBC & Chem 7: 02/22/17 09:59 02/22/17 04:00 Labs: Short CBC 02/22/17 02/22/17 Range/Units 03:53 09:59 WBC 6.7 (4.3-11.1) K/mcL Hgb 7.0 L 6.9 L (12.9-16.9) g/dL Hct 21.5 L 21.5 L (37.5-50.1) % Plt Count 142 (140-400) K/mcL BMP 02/22/17 04:00 Sodium 141 Potassium 3.4 L Chloride 113 H Carbon Dioxide 23 BUN 32 H Creatinine 3.47 H Glucose 68 L Calcium 7.8 L - ABG Interpretation ABG results: PT/INR, D-dimer PT 10.8 Seconds (9.4-12.1) 02/16/17 03:05 - VTE Documentation of Mechanical Device: Intermittent pneumatic compression device Consult Discharge Plan - Plan Referrals: Cecil Carter MD [Primary Care Provider] - (web request sent on 02/22/17) <Wyatt Dominguez - Last Filed: 02/22/17 17:32> Date of Encounter: 02/22/17 - Assessment and plan (1) Anemia Current Visit: Yes Status: Acute Qualifiers: Anemia type: due to chronic kidney disease Chronic kidney disease stage: stage 5, not on chronic dialysis Qualified Code(s): N18.5 - Chronic kidney disease, stage 5; D63.1 - Anemia in chronic kidney disease; D63.1 - Anemia in chronic kidney disease (2) Esophagitis, [place] grade D Current Visit: Yes Status: Acute (3) Acute renal failure Current Visit: Yes Status: Suspected Qualifiers: Acute renal failure type: with acute tubular necrosis Qualified Code(s): N17.0 - Acute kidney failure with tubular necrosis (4) UTI (urinary tract infection) Current Visit: No Status: Acute Qualifiers: Urinary tract infection type: acute cystitis Hematuria presence: with hematuria Qualified Code(s): N30.01 - Acute cystitis with hematuria (5) Hypokalemia Current Visit: Yes Status: Resolved (6) Diabetes Current Visit: No Status: Chronic Qualifiers: Diabetes mellitus type: type 2 Diabetes mellitus complication status: with hyperglycemia Diabetes mellitus terminal clerk insulin use: with terminal clerk use Qualified Code(s): E11.65 - Type 2 diabetes mellitus with hyperglycemia; Z79.4 - [facility] (current) use of insulin; Z79.4 - buttermaker (current) use of insulin ; Z79.4 - buttermaker (current) use of insulin; Z79.4 - [facility] (current) use of insulin (7) HTN (hypertension) Current Visit: No Status: Chronic Qualifiers: Hypertension type: renovascular hypertension Qualified Code(s): I15.0 - Renovascular hypertension - Constitutional Vitals: Temp Pulse Resp BP Pulse Ox 98.7 F 78 17 165/71 96 02/22/17 16:30 02/22/17 16:30 02/22/17 16:30 02/22/17 16:30 02/22/17 16:30 Internal Medicine: Result - Labs CBC & Chem 7: 02/22/17 16:07 02/22/17 04:00 Labs: Short CBC 02/22/17 02/22/17 02/22/17 Range/Units 03:53 09:59 16:07 WBC 6.7 (4.3-11.1) K/mcL Hgb 7.0 L 6.9 L 8.4 L D (12.9-16.9) g/dL Hct 21.5 L 21.5 L 25.7 L (37.5-50.1) % Plt Count 142 (140-400) K/mcL BMP 02/22/17 04:00 Sodium 141 Potassium 3.4 L Chloride 113 H Carbon Dioxide 23 BUN 32 H Creatinine 3.47 H Glucose 68 L Calcium 7.8 L - ABG Interpretation ABG results: PT/INR, D-dimer PT 10.8 Seconds (9.4-12.1) 02/16/17 03:05 - Attending Attestation I examined this patient and my medical decision-making was reviewed with the Resident Physician on 02/22/17. I agree with the documented findings, disposition and treatment plan as described except to the extent set forth below. Mr Val is currently admitted due to acute renal failure and hyperkalemia. He now has significant anemia. He remains moderate to high risk due to potential for worsening clinical status. Mr Val feels OK. He is very tired. He is more anemic today but no bleeding noted. No fever or chills. No CP or SOB. Exam Alert. Comfortable Mucus membranes dry Heart reg No wheeze Very pale Abd soft and nontender I/P 1. Anemia 2. Hx esophagitis Further diagnoses and plan as above.
[2017-02-22] MEDS ORDERED: Potassium Chloride 40 MEQ, Lidocaine 1% 2 ML in D5% in Water 500 ML IVPB ONE (15:11)
[2017-02-22] MEDS: Pantoprazole 40 MG VIAL IVP SCH ×2 (15:58→17:22)
[2017-02-22 16:29] LABS: Hematocrit 25.7 % (37.5-50.1); Hemoglobin 8.4 g/dL (12.9-16.9)
[2017-02-22] MEDS ORDERED: levoFLOXacin 500 MG TABLET PO SCH (17:00)
[2017-02-22] MEDS: Mirtazapine 15 MG TABLET PO SCH (20:30)
[2017-02-22] MEDS ORDERED: Insulin DETEMIR 100 UNIT/ML X5UNITS SQ SCH (21:00)
[2017-02-23 04:09] LABS: Basophils # 0.1 K/mcL (0.0-0.2); Basophils % 0.7 %; Eosinophils # 0.6 K/mcL (0.0-0.6); Eosinophils % 7.8 %; Hematocrit 24.8 % (37.5-50.1); Hemoglobin 8.1 g/dL (12.9-16.9); Immature Granulocytes % 0.9 % (0-4); Lymphocytes # 1.1 K/mcL (0.6-4.6); Lymphocytes % 14.8 %; Mean Corpuscular HGB Conc 32.7 g/dL (31.6-35.5); Mean Corpuscular Hemoglobin 29.2 pg (28.0-33.3); Mean Corpuscular Volume 89.5 fL (83.0-100.0); Mean Platelet Volume 9.6 fL (9.4-12.4); Monocytes # 0.5 K/mcL (0.0-1.3); Monocytes % 6.7 %; Neutrophils # 5.3 K/mcL (1.6-8.9); Platelet Count 137 K/mcL (140-400); Red Blood Count 2.77 M/mcL (4.19-5.50); Red Cell Distribution Width 15.9 % (11.5-14.5); Segmented Neutrophils % 69.1 %
[2017-02-23 04:36] LABS: Calcium 7.6 mg/dL (8.6-10.3); Magnesium 1.5 mg/dL (1.6-2.6); Potassium 3.7 mEq/L (3.5-5.1)
[2017-02-23] MEDS: Pantoprazole 40 MG VIAL IVP SCH (05:21)
[2017-02-23] MEDS: Insulin LISPRO 300 UNITS/3 ML VIAL SQ SCH (08:10)
[2017-02-23] MEDS: Fluconazole 100 MG TABLET PO SCH (09:00)
--- NOTE | 2017-02-23 09:26 | Nephrology Progress Note ---
Date of Encounter: 02/23/17 Time of Encounter: 09:15 - Assessment and Plan (1) Tpsme-mw-[id number] kidney injury Current Visit: No Status: Acute KARI in setting of hypovolemia, hypotension superimposed on CKD 3-4 most likely in setting of DM and HTN, baseline creat 1.4-2.0, GFR 23-50. Renal fct slowly improving, creat 3.44. Urine output 850 cc. Will follow in office with labs. Qualifiers: Acute renal failure type: unspecified Chronic kidney disease stage: stage 3 (moderate) Qualified Code(s): N17.9 - Acute kidney failure, unspecified; N18.3 - Chronic kidney disease, stage 3 (moderate); N18.3 - Chronic kidney disease, stage 3 (moderate) (2) Hypovolemia Current Visit: No Status: Acute Subjective Interval history: Laying quietly. Minimal breakfast eaten. Objective - Vital Signs Vital signs: Vital Signs Temp Pulse Resp BP Pulse Ox 02/23/17 07:12 98.6 F 73 12 155/81 95 02/23/17 05:27 94 02/23/17 03:23 98.9 F 79 16 159/80 94 02/22/17 23:05 99.1 F 82 16 171/87 96 02/22/17 20:28 99.0 F 85 20 166/92 95 02/22/17 16:30 98.7 F 78 17 165/71 96 02/22/17 14:36 98.0 F 77 16 178/87 95 02/22/17 12:37 98.9 F 75 16 170/88 95 02/22/17 12:29 98.0 F 77 16 168/77 92 02/22/17 10:49 98.0 F 77 16 168/77 91 Intake and Output 02/22/17 02/23/17 02/23/17 23:59 07:59 15:59 Intake Total 298 / 298 0 / 0 Balance 298 / 298 0 / 0 Intake: IV Fluids 298 / 298 Dextrose 5% 1,000 ML @ 75 mls/ 298 / 298 hr IVC .[id number] [facility] Rx#: [id number] Oral 0 / 0 Other: Meal NPO Stool Size Moderate Stool Consistency loose Stool Color Brown Juni Colored # Bowel Movement Diapers 1 Blood Glucose* 366 137 - General Appearance General appearance: Present: chronically ill EENT: Present: mucous membranes moist Neck: Present: no JVD Respiratory: Present: clear Cardiology: Present: no edema, regular rate, regular rhythm Gastrointestinal: Present: normoactive bowel sounds, no tenderness Integumentary: Present: warm and dry Psychiatric: Present: mood/affect appropriate, cooperative - Lab 02/23/17 04:00 02/23/17 04:00 Most recent lab results Calcium 7.6 mg/dL (8.6-10.3) L 02/23/17 04:00 Phosphorus 7.6 mg/dL (2.7-4.5) H 02/16/17 03:05 Magnesium 1.5 mg/dL (1.6-2.6) L 02/23/17 04:00 Urine Creatinine 111 mg/dL 02/15/17 21:44 Urine Sodium 59.5 mEq/L 02/15/17 21:44 - VTE Documentation of Mechanical Device: Intermittent pneumatic compression device Consult Discharge Plan - Plan Referrals: Cecil Carter MD [Primary Care Provider] - (web request sent on 02/22/17)
--- NOTE | 2017-02-23 09:30 | Discharge Summary ---
<Triston Cheung - Last Filed: 02/23/17 13:15> Date of Encounter: 02/23/17 Time of Encounter: 08:30 - Discharge Diagnosis (1) [id number] kidney injury Priority: Primary Status: Acute Qualifiers: Acute renal failure type: unspecified Chronic kidney disease stage: stage 3 (moderate) Qualified Code(s): N17.9 - Acute kidney failure, unspecified; N18.3 - Chronic kidney disease, stage 3 (moderate); N18.3 - Chronic kidney disease, stage 3 (moderate) (2) Recurrent UTI (urinary tract infection) Priority: Secondary Status: Acute (3) Anemia Priority: Secondary Status: Acute Qualifiers: Anemia type: due to chronic kidney disease Chronic kidney disease stage: stage 5, not on chronic dialysis Qualified Code(s): N18.5 - Chronic kidney disease, stage 5; D63.1 - Anemia in chronic kidney disease; D63.1 - Anemia in chronic kidney disease (4) Esophagitis Priority: Secondary Status: Acute (5) Bladder wall thickening Priority: Secondary Status: Acute (6) Sepsis Priority: Secondary Status: Resolved Qualifiers: Sepsis type: sepsis due to unspecified organism Qualified Code(s): A41.9 - Sepsis, unspecified organism (7) Hypokalemia Priority: Secondary Status: Resolved (8) Hypomagnesemia Priority: Secondary Status: Acute (9) Metabolic acidemia Priority: Secondary Status: Resolved (10) DM (diabetes mellitus), type 2 Priority: Secondary Status: Chronic Qualifiers: Diabetes mellitus complication status: with hypoglycemia Diabetes mellitus complication detail: without coma Diabetes mellitus long-term insulin use: with long-term use Qualified Code(s): E11.649 - Type 2 diabetes mellitus with hypoglycemia without coma; 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 12/03/16 [Rx] Sucralfate [Carafate] 1 gm PO TID #1 bottle 12/03/16 [Rx] amLODIPine [Norvasc] 10 mg PO DAILY #0 tablet 12/03/16 [Rx] DULoxetine [Cymbalta] 30 mg PO DAILY 02/15/17 [History] Fluconazole [Diflucan] 100 mg PO DAILY #8 tablet 02/23/17 [Rx] levoFLOXacin [Levaquin] 500 mg PO Q48H #4 tablet 02/23/17 [Rx] Allergies/Adverse Reactions: 3 Allergy/AdvReac Type Severity Reaction Status Date / Time aspirin Allergy Rash Verified 02/15/17 02:44 pseudoephedrine Allergy Rash Verified 02/15/17 02:44 [From [facility]] Date of admission: 02/15/17 08:32 Primary care physician: Cecil Carter MD Consults: 02/20/17 08:21 Consult to Yarn Examiner [CONS] Routine Reason for SW Consult: rtn to [facility] 02/21/17 09:05 Consult to Physical Therapy [CONS] Routine Comment: Evaluate, develop and implement POC Reason for Consult: Physical deconditioning OT [Consult to Occupational Therapy] [CONS] Routine Comment: Evaluate, develop and implement POC Reason for Consult: Physical deconditioning 02/15/17 13:06 Consult to Invasive Line Access Team [CONS] Routine Reason for Consult: no iv access Line Type: EPIV 02/16/17 08:30 Consult to Interventional Radiology [CONS] Routine Consulting Provider: Radiology Interventional [facility] Reason for Consult: KARI-HD today Time Notified: 08:32 Call Completed: Yes 02/16/17 09:30 Consult to Dialysis [CONS] ONCE 02/16/17 13:43 Consult to Urology [CONS] Routine Consulting Provider: [facility] [place] Reason for Consult: Admitted for KARI. Retroperitoneal US showed diffuse urinary bladder wall thickening concerning of cystitis or chronic bladder outlet obstruction. Failed olivares placement attemp by nurse. Appreciate urology assistance for olivares placement. Call Completed: Yes Discharging clinician: Triston Cheung Anticipated date of discharge: 02/23/17 - Patient Status Disposition: Transfer SNF Condition: Fair Functional capacity at discharge: bed bound Overall status at discharge: patient is progressing back to baseline - Discharge Instructions Instructions: Urinary Tract Infection in Men (DC), Anemia (GEN) Follow Up With: Cecil Carter MD [Primary Care Provider] - (Patient will follow up with F PCP) Chi Loyd DO [Non-Partnered Physician] - (Within few weeks to follow up for his renal failure) Nomi Weathers MD [Partnered Physician] - (in 2 weeks regarding the concern of chronic urinary outlet obstruction and potential urinary catheter removal. ) Additional Instructions: Please take prescribed levofloxacin (500 mg by mouth every 48 hours starting 5 pm on 02/24/17, 4 pills) and fluconazole (100 mg by mouth daily startinig 02/24/17, 8 pills) to finish 14-day course of antimicrobial therapy for UTI. Please follow up with your primary care physician Dr. Carter within a week regarding your hospitalization. Please follow up with nephrology Dr. Loyd within few weeks regarding your kidney function. Please follow up with [place] in 2 weeks regarding the concern of chronic urinary outlet obstruction and potential urinary catheter removal. Please follow up with Dr. Santos on 02/27/17 for history of severe esophagitis requiring repeat EGD. - Diet and Activity Activity: as per physical therapy Diet: diabetic diet Hospital course: Mr. Neal is a 61 year old male with PMH of CKD, DM, HTN, HLD, history of recurrent UTI and history of severe esophagitis who was sent from [facility] to [place] [facility] for hyperkalemia. In ED, patient was noted to have K 6.9, bicarbonate 12 and SCr 8.84 / eGFR 6, which are significantly worsen compared to prior SCr 1.54 / eGFR 50 on 12/03/16. Patient was admitted on 02/15/17 for KARI on CKD, hyperkalemia and metabolic acidosis and started on bicarbonate drip. Retroperitoneal US found diffuse urinary bladder wall thickening concerning of cystitis or chronic bladder outlet obstruction. Nephrology and urology were consulted. Urinary catheter was placed by urologist on 02/16/17. Patient also had temporary hemodialysis catheter placed by IR on 02/16/17 and received dialysis on same day. Patient's renal function and urine output continue to improve since. Temporary hemodialysis catheter was removed on as no more hemodialysis is indicated per nephrology. Urine culture from 02/15 grew Staphylococcus warneri and yeast species. Patient has been on levofloxacin and fluconazole since 02/18/17 and needs total 14-day course of antimicrobial therapy for complicated UTI (anticipated to finish on 03/03/17). Patient was also noted to have anemia with Hgb around 8.0 most of time but dropped to as low as 6.9 on 02/22/17. Patient received one unit of pRBC transfusion on 02/22/17 and Hgb stays above 8.1 since. Review of medical records revealed that EGD on 11/30/16 found LA Grade D esophagitis with no bleeding in the lower lower esophagus extending to GE junction. Non-obstructive Schatzki ring was also seen at GE junction. GI recommended PPI BID, Carafact and follow- up EGD in 3 months at that time. On 02/23/17, patient has WBC 7.7, Hgb 8.1, K 3.7, HCO3 20, SCr 3.44, eGFR 18. Given patient improves clinically and remains hemodynamically stable, patient can be discharged back to [facility] with urinary catheter. Patient is instructed to take prescribed levofloxacin (500 mg by mouth every 48 hours starting 5 pm on 02/24/17, 4 pills) and fluconazole (100 mg by mouth daily startinig 02/24/17, 8 pills) to finish 14-day course of antimicrobial therapy for UTI. Patient will need follow-up with primary care physician Dr. Carter within a week regarding his hospitalization. Patient also need follow-up with nephrology Dr. Loyd within few weeks regarding kidney function and [facility] regarding the concern of chronic urinary outlet obstruction and potential urinary catheter removal. Patient will have follow-up appointment with Dr. Santos on 02/27/17 for history of severe esophagitis requiring repeat EGD. Patient expressed his understanding and agreement with discharge plan. All questions were answered. - Time Spent with Patient Total time spent providing and/or coordinating discharge services: Greater than 30 minutes (49 minutes) - Constitutional Vitals: Temp Pulse Resp BP Pulse Ox 98.6 F 73 12 155/81 95 02/23/17 07:12 02/23/17 07:12 02/23/17 07:12 02/23/17 07:12 02/23/17 07:12 General appearance: Present: cachectic, cooperative, A&O X 3, no acute distress , answers questions appropriately - Head Head exam: Present: normal inspection - Eye Eye exam: Present: EOMI, conjuntiva pink, sclera anicteric - Neck Neck exam general surgery: Present: normal inspection, supple, trachea midline - Respiratory Respiratory exam: Present: CTAB. Absent: accessory muscle use, rales, rhonchi, wheezes - Cardiovascular Cardiovascular exam: Present: RRR, +S1, +S2 - GI/Abdominal GI/Abdominal exam: Present: normal bowel sounds, soft, no peritoneal signs. Absent: tenderness - Extremities Exam Extremities exam: Present: warm. Absent: cyanotic, pedal edema - Neurological Exam Neurological exam: Present: alert, no focal deficits. Absent: facial droop, speech deficit - Skin Skin exam: Present: dry, warm - VTE Documentation of Mechanical Device: Intermittent pneumatic compression device <Wyatt Dominguez - Last Filed: 02/23/17 17:52> Date of Encounter: 02/23/17 - Discharge Diagnosis (1) Acute renal failure Priority: Primary Status: Suspected Qualifiers: Acute renal failure type: with acute tubular necrosis Qualified Code(s): N17.0 - Acute kidney failure with tubular necrosis (2) Anemia Status: Acute Qualifiers: Anemia type: due to chronic kidney disease Chronic kidney disease stage: stage 5, not on chronic dialysis Qualified Code(s): N18.5 - Chronic kidney disease, stage 5; D63.1 - Anemia in chronic kidney disease; D63.1 - Anemia in chronic kidney disease (3) Esophagitis, [place] grade D Priority: Secondary Status: Acute (4) UTI (urinary tract infection) Priority: Primary Status: Acute Qualifiers: Urinary tract infection type: acute cystitis Hematuria presence: with hematuria Qualified Code(s): N30.01 - Acute cystitis with hematuria (5) Hypokalemia Status: Resolved (6) Diabetes Priority: Secondary Status: Chronic Qualifiers: Diabetes mellitus type: type 2 Diabetes mellitus complication status: with hyperglycemia 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 Qualified Code(s): E11.65 - Type 2 diabetes mellitus with hyperglycemia; 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; 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 ; Z79.4 - senior care (current) use of insulin; 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 (7) HTN (hypertension) Priority: Secondary Status: Chronic Qualifiers: Hypertension type: renovascular hypertension Qualified Code(s): I15.0 - Renovascular hypertension Date of admission: 02/15/17 08:32 Primary care physician: Cecil Carter MD Consults: 02/20/17 08:21 Consult to Yarn Examiner [CONS] Routine Reason for SW Consult: rtn to [facility] 02/21/17 09:05 Consult to Physical Therapy [CONS] Routine Comment: Evaluate, develop and implement POC Reason for Consult: Physical deconditioning OT [Consult to Occupational Therapy] [CONS] Routine Comment: Evaluate, develop and implement POC Reason for Consult: Physical deconditioning 02/15/17 13:06 Consult to Invasive Line Access Team [CONS] Routine Reason for Consult: no iv access Line Type: EPIV 02/16/17 08:30 Consult to Interventional Radiology [CONS] Routine Consulting Provider: Radiology Interventional [facility] Reason for Consult: KARI-HD today Time Notified: 08:32 Call Completed: Yes 02/16/17 09:30 Consult to Dialysis [CONS] ONCE 02/16/17 13:43 Consult to Urology [CONS] Routine Consulting Provider: [facility] [place] Reason for Consult: Admitted for KARI. Retroperitoneal US showed diffuse urinary bladder wall thickening concerning of cystitis or chronic bladder outlet obstruction. Failed olivares placement attemp by nurse. Appreciate urology assistance for olivares placement. Call Completed: Yes Hospital course: Mr. Neal is a 61 year old male - Time Spent with Patient Total time spent providing and/or coordinating discharge services: 38min - Constitutional Vitals: Temp Pulse Resp BP Pulse Ox 97.5 F L 65 15 142/77 96 02/23/17 10:53 02/23/17 10:53 02/23/17 10:53 02/23/17 10:53 02/23/17 10:53 - Attending Attestation I examined this patient and my medical decision-making was reviewed with the Resident Physician on 02/23/17. I agree with the documented findings, disposition and treatment plan as described except to the extent set forth below. Mr Val has been admitted for acute on chronic renal failure. He underwent dialysis once. He has had slow improvement in his renal function. He had olivares catheter placed by Dr. Weathers and nephrology has asked that this stay in for now. He had anemia and received blood transfusion. At this time his H/H is stable. He is afebrile with stable vitals and felt ready for discharge back to SNF. Exam Alert. Comfortable at this time Mucus membranes dry Heart reg and distant Lungs diminished Plan D/C to SNF [facility] per nephrology Monitor H/H (has hx of esophagitis).
--- NOTE | 2017-02-23 09:53 | Physician Discharge Referral ---
ExtendedCare Referral Info Transfer To: [facility] Provider in Charge after Transfer: PCP Institutional Level of Care: Skilled - Diagnosis (1) Holju-sj-vornudi kidney injury Priority: Primary Status: Acute (2) Recurrent UTI (urinary tract infection) Priority: Secondary Status: Acute (3) Anemia Priority: Secondary Status: Acute (4) Esophagitis Priority: Secondary Status: Acute (5) Bladder wall thickening Priority: Secondary Status: Acute (6) Sepsis Priority: Secondary Status: Resolved (7) Hypokalemia Priority: Secondary Status: Resolved (8) Hypomagnesemia Priority: Secondary Status: Acute (9) Metabolic acidemia Priority: Secondary Status: Resolved (10) DM (diabetes mellitus), type 2 Priority: Secondary Status: Chronic - Transfer Medications Prescriptions: Fluconazole [Diflucan] 100 mg PO DAILY #8 tablet levoFLOXacin [Levaquin] 500 mg PO Q48H #4 tablet Home Medications: Cyclosporine [Restasis] 1 drop OP BID 11/28/16 [History] Insulin Glargine,Hum.rec.anlog [Basaglar Kwikpen U-100] 10 unit SQ QPM 11/28/16 [History] Insulin LISPRO [HumaLOG] 2 - 10 units SQ TIDWM PRN 11/28/16 [History] Loratadine [Allergy Relief] 10 mg PO DAILY PRN 11/28/16 [History] Mirtazapine [Remeron] 15 mg PO HS 11/28/16 [History] Lisinopril [Zestril] 5 mg PO DAILY #0 tablet 12/03/16 [Rx] Omeprazole [PriLOSEC] 40 mg PO BIDAC capsule. 12/03/16 [Rx] Sucralfate [Carafate] 1 gm PO TID #1 bottle 12/03/16 [Rx] amLODIPine [Norvasc] 10 mg PO DAILY #0 tablet 12/03/16 [Rx] DULoxetine [Cymbalta] 30 mg PO DAILY 02/15/17 [History] Fluconazole [Diflucan] 100 mg PO DAILY #8 tablet 02/23/17 [Rx] levoFLOXacin [Levaquin] 500 mg PO Q48H #4 tablet 02/23/17 [Rx] Allergies/Adverse Reactions: 3 Allergy/AdvReac Type Severity Reaction Status Date / Time aspirin Allergy Rash Verified 02/15/17 02:44 pseudoephedrine Allergy Rash Verified 02/15/17 02:44 [From [facility]] - Respiratory Orders Smoking Cessation: Smoking cessation has been advised. For more information, call the [place] Tobacco Quit Line at 7-687-DYGP-NOW. - Advance Directives Code Status: Full Code - Mobility Orders Bedrest (Can advance to chair or ambulate based on PT/OT evaluation at SNF) - Rehabiliation Orders Rehab Potential: Fair Rehab Orders: Evaluation for Physical Therapy, Evaluation for Occupational Therapy - Diet Orders No Concentrated Sweets, Renal CERTIFICATION: I certify that the transfer of the above named patient to an Extended Care Facility is necessary for the continuing treatment of the diagnosis listed. The above information is true and accurate reflection of patient's current condition. Confidential - Redisclosure prohibited without a patient's written consent.
[2017-02-23] MEDS ORDERED: FLUARIX QUAD 2017-18 36MOS UP/PF 0.5 ML SYRINGE IM ONE (10:44)
[2017-02-23 11:01] VITALS: BP 142/77
== END 2017-02-23 11:27 | DRG 871 ==
LOC: EMEROO 02:36 → 2ANU 02:36 → SUATTDRO 08:32 → 2NNU 02-16 16:52 → 2ANU 02-18 18:45
PROVIDERS: ADMIT Internal Medicine; ATTEND Internal Medicine

== ENCOUNTER 2017-03-22 23:51 | Inpatient (IN) ==
[2017-03-23] MEDS ORDERED: 0.9 % Sodium Chloride 1,000 ML IVC ONE ×3 (00:02→02:42)
--- NOTE | 2017-03-23 00:12 | Emergency Department Note ---
Disposition Clinical Impression: Hypoglycemia, Hypothermia, Acute kidney injury, Hypokalemia, Hyperchloremia, Hypotension Disposition: Admitted As Inpatient Condition: Serious Altered Mental Status HPI - General Chief Complaint: ED Altered Mental Status Stated Complaint: ams Time Seen by Provider: 03/23/17 00:00 Source: EMS Mode of arrival: EMS Limitations: altered mental status Nursing Notes Reviewed: Yes Vital Signs Reviewed: Yes - History of Present Illness HPI Narrative: 61-year-old male history of cirrhotic liver disease who presents to the ER with a chief complaint of altered mental status. Patient is unable to provide any history. Reports she was unresponsive at the nursing facility. His most recent glucose was 250 there and he received 4 units of insulin. EMS reports in route they rechecked it and it was 24. He was unable to obtain IV access. Patient presents altered and nonverbal. IV access was immediately established and patient was given an amp of D50 with improvement in his neurologic status. He is also noted to be hypothermic here at 91 degrees. We will initiate a sepsis workup at this time, place on a bear hugger give some warm IV fluids and warmed blankets. MD complaint: altered mental status Onset (ago): unknown - Related Data Home Medications Medication Instructions Recorded Confirmed Cyclosporine [Restasis] 1 drop OP BID 11/28/16 02/15/17 Insulin Glargine,Hum.rec.anlog 10 unit SQ QPM 11/28/16 02/15/17 [Basaglar Kwikpen U-100] Insulin LISPRO [HumaLOG] 2 - 10 units SQ TIDWM PRN 11/28/16 02/15/17 Loratadine [Allergy Relief] 10 mg PO DAILY PRN 11/28/16 02/15/17 Mirtazapine [Remeron] 15 mg PO HS 11/28/16 02/15/17 DULoxetine [Cymbalta] 30 mg PO DAILY 02/15/17 02/15/17 Previous Rx's Medication Instructions Recorded Lisinopril [Zestril] 5 mg PO DAILY #0 tablet 12/03/16 Omeprazole [PriLOSEC] 40 mg PO BIDAC capsule. 12/03/16 Sucralfate [Carafate] 1 gm PO TID #1 bottle 12/03/16 amLODIPine [Norvasc] 10 mg PO DAILY #0 tablet 12/03/16 Fluconazole [Diflucan] 100 mg PO DAILY #8 tablet 02/23/17 levoFLOXacin [Levaquin] 500 mg PO Q48H #4 tablet 02/23/17 Allergies Allergy/AdvReac Type Severity Reaction Status Date / Time aspirin Allergy Rash Verified 02/15/17 02:44 pseudoephedrine Allergy Rash Verified 02/15/17 02:44 [From [facility]] Limitations: ROS unobtainable due to patients medical condition Past Medical History - Past Medical History Attestation: Yes The following information was validated with the patient. Source: obtained from family Medical history: Reports: CVA, dementia, diabetes, hyperlipidemia, hypertension , other Surgical history: Reports: hip replacement, orthopedic, other, other Psychiatric history: Reports: depression, prior suicide attempt - Social History Smoking Status: Never smoker Smokeless Tobacco Status: No Alcohol use: Reports: none Drug use: Reports: none Physical Exam - General Limitations: altered mental status General appearance: obtunded - Head Head exam: atraumatic, normocephalic - Eye Eye exam: Present: normal appearance, PERRL - ENT ENT exam: normal exam - Neck Neck exam: Present: normal inspection - Chest Chest inspection: Present: normal inspection, symmetric chest wall rise - Respiratory Respiratory exam: Present: normal lung sounds bilaterally - Cardiovascular Cardiovascular exam: Present: regular rate, normal rhythm, normal heart sounds - Abdominal Exam Abdominal exam: Present: soft. Absent: distention, guarding, rigidity - Extremities Exam Extremities exam: Present: normal inspection, full ROM - Expanded Upper Extremity Exam Shoulder exam: Present: normal inspection, full ROM Arm exam: Present: normal inspection, full ROM Elbow exam: Present: normal inspection, full ROM Forearm/Wrist exam: Present: normal inspection, full ROM Hand exam: Present: normal inspection, full ROM - Expanded Lower Extremity Exam Hip/Pelvis exam: Present: normal inspection, full ROM Upper leg exam: Present: normal inspection, full ROM Knee exam: Present: normal inspection, full ROM Lower leg exam: Present: normal inspection, full ROM Ankle exam: Present: normal inspection, full ROM Foot/toe exam: Present: normal inspection, full ROM - Expanded Neurological Exam Coma Scale Eye Opening: Spontaneous Coma Scale Motor Response: None Coma Scale Verbal Response: None Coma Scale Total: 6 - Skin Skin exam: Present: warm, dry Course Course Narrative: Patient seen and examined upon time of arrival. IV access was established and patient was given 1 amp of D50. Recheck here of 140. He is more alert at this time and interactive. He is noted to be hypothermic. Given his prior history of sepsis we will initiate a sepsis workup including CT scan of the head, x-ray of the chest, lactate and blood cultures, urinalysis. We will place him on a bear hugger, given warm IV fluids, warm blankets and reassess. - Reevaluation(s) Reevaluation #1: Patient remains hypotensive after 1 L fluid challenge. Additional liter of normal saline ordered. We did recheck his glucose and it was 66. Patient given an additional amp of D50. Reevaluation #2: Patient continues to remain hypotensive after 2 L of fluid. Patient's blood pressure roughly 60/40. We will place a central line for continued fluid resuscitation and likely need for vasopressors. The patient is unable to consent for procedure at this time and will be placed emergently with implied consent. Reevaluation #3: Patient hypotensive after 3 L of normal saline. Reviewed labs. He has hyperchloremic. His creatinine is 8.18. He was previously hospitalized and dialyzed for hyperkalemia and acute on chronic renal insufficiency. His potassium is actually low today. We will start Levophed for hypotension as well as D5 half-normal due to hypoglycemia and hyperchloremia. His temperature has continued to improve as well. This may be contributing to his hypotensive state. Vital Signs Temperature 91.3 F L 03/22/17 23:53 Pulse Rate 83 03/22/17 23:53 Respiratory Rate 18 03/22/17 23:53 Blood Pressure 91/57 03/22/17 23:53 O2 Sat by Pulse Oximetry 100 03/22/17 23:53 Temperature 91.3 F L 03/22/17 23:53 Pulse Rate 84 03/23/17 06:00 Respiratory Rate 12 03/23/17 06:00 Blood Pressure 81/52 03/23/17 06:00 O2 Sat by Pulse Oximetry 99 03/23/17 06:00 Oxygen Delivery Oxygen Delivery Room Air Procedures - Central Line Placement Right IJ Central Line Inserted*: Yes Central Line Insertion: emergent Procedural Pause: verify patient name and date of , edwina and assess the site, assemble equipment and verify supplies, perform hand hygiene Patient Placed on Monitor/Pulse Ox: Yes During the Procedure: clinician is wearing sterile gloves, cap, mask,& gown during insertion, sterile field and sterile technique are maintained, patient's face is covered with drape or mask and wearing a cap, everyone in room is wearing a mask Central Line Prep: Chlorhexidine scrub Prep the Procedure Site: apply chloraprep to the skin using a back and forth scrubbing motion, apply chloraprep for 30 seconds (upper body), 1-2 min ( femoral sites), allow prep to dry, drape the patient with a full body drape Local Anesthetic: lidocaine 1% Amount of anesthesia used (mL): 3 Ultrasound Used for Placement: Yes Central Line Lumen Inserted: triple Post Procedure: sutured in place, good blood return, all ports aspirated, flushed, capped, sterile dressing applied, guide wire removed and visualized Post Procedure X-Ray: tip of catheter in good position Patient Tolerated Procedure: no complications Complications: none Name of Clinician Inserting Central Line: Tony Barclay Date: 03/23/17 Additional Comments: There was an accidental needle stick of the exhaust machine operator during this procedure. Altered Mental Status - MDM Narrative Medical decision making narrative: 61-year-old male presents to the ER from [facility] facility due to unresponsiveness. It sounds like he received insulin earlier in the day for a glucose of around 240. In transit EMS noted a glucose level of 24. Unable to obtain access in route. Upon arrival he was given an amp of D50 with improvement of his neurologic status. Noted to be hypothermic at 91 degrees. He was also noted to become hypotensive during his ED stay. Patient was recent hospitalization for cystitis which appeared to be chronic as well as UTI, hypertension, hyperkalemia and acute on chronic renal injury. He was given 3 L of normal saline here with no improvement in his hypotension. He appears volume depleted on exam with significant collapsibility of his IJ during central line placement. The patient is started on vasopressor support with improvement of his map. He is noted to have a recurrence of his acute kidney injury with a creatinine of 8.18. His potassium is actually low today with normal magnesium. He has relatively no urine by bedside ultrasound. I reviewed his prior urine cultures with multiple antibiotic resistant organisms. We will cover him empirically with Zosyn. We did attempt to collect a specimen suprapubically without success. The patient is admitted to the hospitalist service in serious but stable condition. - Lab Data Lab results reviewed: Yes I reviewed the patient's lab results. Result diagrams: 03/23/17 00:58 03/23/17 00:58 Lab Results 03/22/17 03/23/17 03/23/17 Range/Units 23:56 00:58 00:58 WBC 6.0 (4.3-11.1) K/mcL RBC 3.24 L (4.19-5.50) M/mcL Hgb 9.4 L (12.9-16.9) g/dL Hct 30.1 L (37.5-50.1) % MCV 92.9 (83.0-100.0) fL MCH 29.0 (28.0-33.3) pg MCHC 31.2 L (31.6-35.5) g/dL RDW 15.5 H (11.5-14.5) % Plt Count 186 (140-400) K/mcL MPV 10.1 (9.4-12.4) fL Immature Gran % 0.8 (0-4) % Seg Neutrophils % 69.3 % Lymphocytes % 20.1 % Monocytes % 5.3 % Eosinophils % 3.8 % Basophils % 0.7 % Neutrophils # 4.2 (1.6-8.9) K/mcL Lymphocytes # 1.2 (0.6-4.6) K/mcL Monocytes # 0.3 (0.0-1.3) K/mcL Eosinophils # 0.2 (0.0-0.6) K/mcL Basophils # 0.0 (0.0-0.2) K/mcL PT 10.6 (9.4-12.1) Seconds INR 1.0 APTT 47.9 H (26.0-36.0) Seconds Sodium (136-145) mEq/L Potassium (3.5-5.1) mEq/L Chloride (98-107) mEq/L Carbon Dioxide (23-29) mEq/L BUN (8-23) mg/dL Creatinine (0.70-1.30) mg/dL Est GFR ( Amer) (> 60) Est GFR (Non-Af Amer) (> 60) BUN/Creatinine Ratio (6-26) Glucose (70-105) mg/dL POC Glucose 140 H (58-89) Calculated Osmolality (280-300) Lactic Acid (0.5-2.2) mmol/L Calcium (8.6-10.3) mg/dL Phosphorus (2.7-4.5) mg/dL Magnesium (1.6-2.6) mg/dL Total Bilirubin (0.3-1.0) mg/dL Direct Bilirubin (0.0-0.2) mg/dL Indirect Bilirubin (0.0-1.2) mg/dL AST (13-39) Units/L ALT (7-52) Units/L Alkaline Phosphatase (34-104) Units/L Ammonia (16-53) mcmol/L Troponin I (< 0.04) ng/mL B-Natriuretic Peptide (Less than 100) pg/mL Serum Total Protein (6.4-8.9) g/dL Albumin (3.5-5.7) g/dL Globulin (2.4-3.5) g/dL Albumin/Globulin Ratio (1.1-2.2) Blood Type Antibody Screen 03/23/17 03/23/17 03/23/17 Range/Units 00:58 00:58 00:58 WBC (4.3-11.1) K/mcL RBC (4.19-5.50) M/mcL Hgb (12.9-16.9) g/dL Hct (37.5-50.1) % MCV (83.0-100.0) fL MCH (28.0-33.3) pg MCHC (31.6-35.5) g/dL RDW (11.5-14.5) % Plt Count (140-400) K/mcL MPV (9.4-12.4) fL Immature Gran % (0-4) % Seg Neutrophils % % Lymphocytes % % Monocytes % % Eosinophils % % Basophils % % Neutrophils # (1.6-8.9) K/mcL Lymphocytes # (0.6-4.6) K/mcL Monocytes # (0.0-1.3) K/mcL Eosinophils # (0.0-0.6) K/mcL Basophils # (0.0-0.2) K/mcL PT (9.4-12.1) Seconds INR APTT (26.0-36.0) Seconds Sodium 137 (136-145) mEq/L Potassium 3.3 L (3.5-5.1) mEq/L Chloride 115 H (98-107) mEq/L Carbon Dioxide 12 L (23-29) mEq/L BUN 56 H (8-23) mg/dL Creatinine 8.18 H (0.70-1.30) mg/dL Est GFR ( Amer) 8 L (> 60) Est GFR (Non-Af Amer) 7 L (> 60) BUN/Creatinine Ratio 7 (6-26) Glucose 92 (70-105) mg/dL POC Glucose (58-89) Calculated Osmolality 299 (280-300) Lactic Acid 1.6 (0.5-2.2) mmol/L Calcium 8.2 L (8.6-10.3) mg/dL Phosphorus 5.1 H (2.7-4.5) mg/dL Magnesium 2.1 (1.6-2.6) mg/dL Total Bilirubin 0.3 (0.3-1.0) mg/dL Direct Bilirubin 0.0 (0.0-0.2) mg/dL Indirect Bilirubin 0.3 (0.0-1.2) mg/dL AST 8 L (13-39) Units/L ALT 7 (7-52) Units/L Alkaline Phosphatase 88 (34-104) Units/L Ammonia (16-53) mcmol/L Troponin I < 0.03 (< 0.04) ng/mL B-Natriuretic Peptide (Less than 100) pg/mL Serum Total Protein 5.4 L (6.4-8.9) g/dL Albumin 2.7 L (3.5-5.7) g/dL Globulin 2.7 (2.4-3.5) g/dL Albumin/Globulin Ratio 1.0 L (1.1-2.2) Blood Type Antibody Screen 03/23/17 03/23/17 03/23/17 Range/Units 00:58 00:58 00:58 WBC (4.3-11.1) K/mcL RBC (4.19-5.50) M/mcL Hgb (12.9-16.9) g/dL Hct (37.5-50.1) % MCV (83.0-100.0) fL MCH (28.0-33.3) pg MCHC (31.6-35.5) g/dL RDW (11.5-14.5) % Plt Count (140-400) K/mcL MPV (9.4-12.4) fL Immature Gran % (0-4) % Seg Neutrophils % % Lymphocytes % % Monocytes % % Eosinophils % % Basophils % % Neutrophils # (1.6-8.9) K/mcL Lymphocytes # (0.6-4.6) K/mcL Monocytes # (0.0-1.3) K/mcL Eosinophils # (0.0-0.6) K/mcL Basophils # (0.0-0.2) K/mcL PT (9.4-12.1) Seconds INR APTT (26.0-36.0) Seconds Sodium (136-145) mEq/L Potassium (3.5-5.1) mEq/L Chloride (98-107) mEq/L Carbon Dioxide (23-29) mEq/L BUN (8-23) mg/dL Creatinine (0.70-1.30) mg/dL Est GFR ( Amer) (> 60) Est GFR (Non-Af Amer) (> 60) BUN/Creatinine Ratio (6-26) Glucose (70-105) mg/dL POC Glucose (58-89) Calculated Osmolality (280-300) Lactic Acid (0.5-2.2) mmol/L Calcium (8.6-10.3) mg/dL Phosphorus (2.7-4.5) mg/dL Magnesium (1.6-2.6) mg/dL Total Bilirubin (0.3-1.0) mg/dL Direct Bilirubin (0.0-0.2) mg/dL Indirect Bilirubin (0.0-1.2) mg/dL AST (13-39) Units/L ALT (7-52) Units/L Alkaline Phosphatase (34-104) Units/L Ammonia 43 (16-53) mcmol/L Troponin I (< 0.04) ng/mL B-Natriuretic Peptide 19 (Less than 100) pg/mL Serum Total Protein (6.4-8.9) g/dL Albumin (3.5-5.7) g/dL Globulin (2.4-3.5) g/dL Albumin/Globulin Ratio (1.1-2.2) Blood Type O POSITIVE Antibody Screen NEGATIVE 03/23/17 03/23/17 Range/Units 01:43 04:29 WBC (4.3-11.1) K/mcL RBC (4.19-5.50) M/mcL Hgb (12.9-16.9) g/dL Hct (37.5-50.1) % MCV (83.0-100.0) fL MCH (28.0-33.3) pg MCHC (31.6-35.5) g/dL RDW (11.5-14.5) % Plt Count (140-400) K/mcL MPV (9.4-12.4) fL Immature Gran % (0-4) % Seg Neutrophils % % Lymphocytes % % Monocytes % % Eosinophils % % Basophils % % Neutrophils # (1.6-8.9) K/mcL Lymphocytes # (0.6-4.6) K/mcL Monocytes # (0.0-1.3) K/mcL Eosinophils # (0.0-0.6) K/mcL Basophils # (0.0-0.2) K/mcL PT (9.4-12.1) Seconds INR APTT (26.0-36.0) Seconds Sodium (136-145) mEq/L Potassium (3.5-5.1) mEq/L Chloride (98-107) mEq/L Carbon Dioxide (23-29) mEq/L BUN (8-23) mg/dL Creatinine (0.70-1.30) mg/dL Est GFR ( Amer) (> 60) Est GFR (Non-Af Amer) (> 60) BUN/Creatinine Ratio (6-26) Glucose (70-105) mg/dL POC Glucose 66 (58-89) Calculated Osmolality (280-300) Lactic Acid 1.0 (0.5-2.2) mmol/L Calcium (8.6-10.3) mg/dL Phosphorus (2.7-4.5) mg/dL Magnesium (1.6-2.6) mg/dL Total Bilirubin (0.3-1.0) mg/dL Direct Bilirubin (0.0-0.2) mg/dL Indirect Bilirubin (0.0-1.2) mg/dL AST (13-39) Units/L ALT (7-52) Units/L Alkaline Phosphatase (34-104) Units/L Ammonia (16-53) mcmol/L Troponin I (< 0.04) ng/mL B-Natriuretic Peptide (Less than 100) pg/mL Serum Total Protein (6.4-8.9) g/dL Albumin (3.5-5.7) g/dL Globulin (2.4-3.5) g/dL Albumin/Globulin Ratio (1.1-2.2) Blood Type Antibody Screen - Radiology Data Radiology results reviewed: Yes I reviewed the patient's radiology results. Head CT 03/23/17 00:03 IMPRESSION: No acute process. No significant change. Atrophy and sequela of chronic small vessel ischemic disease again noted. Small bilateral basal ganglia lacunar infarcts. Additional small lacunar infarct in the left thalamus/ hypothalamus region. Probable old infarct in left cerebellum. D/ / Jcarlos Rivera MD / Jcarlos Rivera MD Interpreting Provider: Jcarlos Rivera MD Chest X-Ray 03/23/17 02:11 IMPRESSION: Right internal jugular central venous catheter with tip over the cavoatrial junction. No evidence of complication. Limited low lung volume study without acute process. D/ / Katty Tolentino MD / Katty Tolentino MD Interpreting Provider: Katty Tolentino MD - EKG Data EKG attestation: Yes I reviewed and interpreted this EKG. EKG results narrative: EKG demonstrates sinus rhythm with first-degree AV block with a rate of 66 bpm. Normal axis. Prolonged OH interval of 292. Other intervals normal. Normal R -wave progression. No gross ST elevations or depressions. No acute ischemic findings. No significant changes from previous EKG dated 02/15/17. Critical Care Time Critical Care Time: Yes Total Critical Care Time: 60 Attestation: Critical care performed: Time is exclusive of separately billable procedures. Time includes: direct patient care, patient reassessment, coordination of patient care, interpretation of data (laboratory data, radiology data, and respiratory data), review of patient's medical records, medical consultation and documentation of patient care. Procedures included in critical care time: Procedures excluded from critical care time: IJ Central line placement S.B.AOle. - Wade.Missael Situation: Demographics, MOA Background: Presenting Complaint, Relevant PMH, Meds, & Allergies Assessment: Vital Signs, Course and respsone to treatment, Exam Concerns, Patient/Family Expectation, Pertinant Lab Results, Outstanding Labs Recommendation: Barrier(s) to disposition, Recommendation based on pending studies, treatments, or consults SYesica Report Given to: Dr. Maria Esther Carrera Repor Time: 04:30 (Requests dose of steroids.) Attestation Statement - Attestation Attestation: I, Efren Henderson MD, personally evaluated this patient and discussed their management with the resident physician. I reviewed the resident's note and agree with the documented findings, medical decision making, and plan of care. 61-year-old male presents to the emergency department by EMS [facility] local [facility] for altered mental status with hypotension and hypothermia. On arrival here the patient was unresponsive. His fingerstick blood sugar was 24. He received D50 and became much more alert patient was found to be markedly hypothermic with a rectal temperature of 91. He was placed under warm blankets and a Jessika heating blanket. Patient later became less responsive and required another dose of D50. Patient remained hypotensive despite fluid challenges. A right IJ central line was placed by Dr. Barclay under my direct supervision without difficulty or complications. Patient was started on a Levophed infusion with marked improvement in his blood pressure. On examination patient is a thin male who is initially unresponsive. He is pale. No cyanosis or diaphoresis. Breath sounds are equal bilaterally. No rales or wheezes noted. Heart regular rate and rhythm. Abdomen soft with normal bowel sounds. Labs reviewed. Acute kidney injury with creatinine greater than 8. Chest x- ray negative. No acute changes on EKG. The hospitalist, Dr. Mayo, was consulted and accepted the admission of the patient.
[2017-03-23 01:10] LABS: Basophils % 0.7 %; Eosinophils # 0.2 K/mcL (0.0-0.6); Eosinophils % 3.8 %; Hematocrit 30.1 % (37.5-50.1); Hemoglobin 9.4 g/dL (12.9-16.9); Immature Granulocytes % 0.8 % (0-4); Lymphocytes # 1.2 K/mcL (0.6-4.6); Lymphocytes % 20.1 %; Mean Corpuscular HGB Conc 31.2 g/dL (31.6-35.5); Mean Corpuscular Volume 92.9 fL (83.0-100.0); Mean Platelet Volume 10.1 fL (9.4-12.4); Monocytes # 0.3 K/mcL (0.0-1.3); Monocytes % 5.3 %; Neutrophils # 4.2 K/mcL (1.6-8.9); Platelet Count 186 K/mcL (140-400); Red Blood Count 3.24 M/mcL (4.19-5.50); Red Cell Distribution Width 15.5 % (11.5-14.5); Segmented Neutrophils % 69.3 %
[2017-03-23 01:16] LABS: Prothrombin Time 10.6 Seconds (9.4-12.1)
[2017-03-23 01:19] LABS: Activated Partial Thrombo Time 47.9 Seconds (26.0-36.0)
[2017-03-23 01:32] LABS: Albumin 2.7 g/dL (3.5-5.7); Bilirubin,Indirect 0.3 mg/dL (0.0-1.2); Bilirubin,Total 0.3 mg/dL (0.3-1.0); Calcium 8.2 mg/dL (8.6-10.3); Globulin 2.7 g/dL (2.4-3.5); Magnesium 2.1 mg/dL (1.6-2.6); Phosphorous 5.1 mg/dL (2.7-4.5); Potassium 3.3 mEq/L (3.5-5.1); Total Protein 5.4 g/dL (6.4-8.9)
[2017-03-23] MEDS ORDERED: *HR* Dextrose 50 % in Water (Syg) 50 ML SYRINGE ONE (01:45)
[2017-03-23] MEDS: Norepinephrine 4 MG in D5% in Water 250 ML IVC SCH (03:47)
[2017-03-23] MEDS ORDERED: D5% in 0.45% NACL 1,000 ML IVC SCH ×2 (04:00→06:00)
[2017-03-23] MEDS ORDERED: Piperacillin/Tazobactam 3.375 GM in Water for inj. (sterile) 20 ML IVP ONE (04:08)
[2017-03-23] MEDS ORDERED: Hydrocortisone Sodium Succ 100 MG/2 ML VIAL IVP ONE (04:24)
[2017-03-23] MEDS ORDERED: Naloxone 0.4 MG/ML INJ IVP PRN (05:23)
[2017-03-23] MEDS ORDERED: Ringers Solution, Lactated 1,000 ML IVC SCH ×2 (05:30→07:30)
--- NOTE | 2017-03-23 05:42 | Internal Med History&Physical ---
<Corey Welch - Last Filed: 03/23/17 06:35> Date of Encounter: 03/23/17 Time of Encounter: 05:15 Assessment and Plan (1) Septic shock Current visit: Yes Status: Acute Patient presented with BP 91/57, temp 91.3, AMS Possibly secondary to UTI; patient has known history of UTIs Central line placed; currently on levophed 4mg. BP currently 125/69 Plan: -Blood CX are currently pending -ER staff unable to place olivares; urology consulted to place olivares -Vancomycin dosed per pharmacy -Zosyn 3.375 gm IV Q12h -Repeat lactic acid ordered (2) Hypothermia Current visit: Yes Status: Acute Presented with a temperature of 91.3. Bear hugger and warm IVF were given. Plan: -Temperature checks every hour. -Bear hugger Qualifiers: Qualified Code(s): T68.XXXA - Hypothermia, initial encounter (3) KARI (acute kidney injury) Current visit: Yes Status: Acute Laboratory analysis demonstrated Cr of 8.18. U/S showed no urine present in bladder. ED staff unable to place suprapubic catheter. Plan: -D5 in 45% NaCl. -Retroperiotoneal US ordered. -Urology and nephrology consulted. (4) Hypotension Current visit: Yes Status: Acute Was hypotensive on arrival; BP dropped from SBP in the 90s to 50s in the ER. Central line was placed; Levophed 4 mg was started. BP subsequently improved; last BP was 125/69. Qualifiers: Qualified Code(s): I95.9 - Hypotension, unspecified (5) Hypoglycemia Current visit: Yes Status: Acute EMS reported a glucose of 24 after patient received 4 U of insulin at SNF. -Patient was started on D50. -Last glucose level was 92. Plan: -Accucheks q4 -D5 in 0.45 NS (6) DVT prophylaxis Current visit: Yes Status: Acute IPCDs Internal Medicine - H&P: HPI Chief complaint: AMS Admitted From: Long-term Nursing Facility History of present illness: Mr. Neal is a 61-year-old male with PMH of CVA, dementia, DM, cirrotic liver disease, HTN, and HLD who presents to the ED with a chief complaint of AMS. Patient was unable to provide any history. Was found unresponsive at nursing facility. Glucose there was found to be 250; received 4 units of insulin. EMS reports in route they rechecked it and it was 24. IV access could not be obtained. Patient presented altered and nonverbal. IV access was immediately established and patient was given an amp of D50 with improvement in his neurologic status. He was also noted to be hypothermic at 91.3 F. Was also hypotensive at 91/57. Other vitals were within normal limits. Sepsis workup was initiated. He was placed on a bear hugger and given warm blankets. CT scan of the head, CXR, lactate and blood cultures, UA were ordered. CT scan and CXR showed no acute process. Patient became hypotensive during his ED stay with SBP dropping into 50s. Patient was recent hospitalization for cystitis which appeared to be chronic as well as UTI, hypertension, hyperkalemia and acute on chronic renal injury. He was given 3 L of normal saline here with no improvement in his hypotension. Central line was placed. He appeared volume depleted on exam with significant collapsibility of his IJ during central line placement. Was started on vasopressor support w/ improvement of MAP. He is noted to have a recurrence of his KARI with creatinine of 8.18. Had relatively no urine by bedside U/S. Prior urine CX with multiple antibiotic resistant organisms. Was given a dose of Zosyn. ED staff attempted to collect a specimen suprapubically without success. Levophed was started for hypotension as well as D5 half-normal due to hypoglycemia and hyperchloremia. BP subsequently improved. His temperature has continued to improve as well. Patient was transported to the ICU for the management of shock. Denies having any pain or discomfort. Patient is a poor historian; has no recollection of prior events leading up to his admission. Past Med Surg Social Fam HX - Past Medical History Medical history: CVA, dementia, diabetes, hyperlipidemia, hypertension, other Psychiatric history: depression, prior suicide attempt - Past Surgical History Surgical History: hip replacement, orthopedic, other, other - Social History Smoking Status: Never smoker Smokeless Tobacco Status: No Alcohol use: none Drug use: none - Family History Mother Living Status: Still Living Hx Family Cardiac Disorders: Yes (A-fib s/p pacemaker) Hx Family Endocrine Disorder: Yes (DM) Father Living Status: Hx Family Cardiac Disorders: Yes (heart disease) Hx Family Respiratory Disorders: No Hx Family Cancer: No Hx Family GI Disorders: No Hx Family Endocrine Disorder: No Hx Family Neuromuscular Disorders: No Hx Family Neurologic Disorders: No Hx Family HEENT Disorders: No Hx Family Autoimmune Disorders: No Brother Living Status: Hx Family Cardiac Disorders: Yes ([place]) Hx Family Endocrine Disorder: Yes (DM) Internal Medicine - H&P: Meds Cyclosporine [Restasis] 1 drop OP BID 11/28/16 [History] Insulin Glargine,Hum.rec.anlog [Basaglar Kwikpen U-100] 10 unit SQ QPM 11/28/16 [History] Insulin LISPRO [HumaLOG] 2 - 10 units SQ TIDWM PRN 11/28/16 [History] Loratadine [Allergy Relief] 10 mg PO DAILY PRN 11/28/16 [History] Mirtazapine [Remeron] 15 mg PO HS 11/28/16 [History] Lisinopril [Zestril] 5 mg PO DAILY #0 tablet 12/03/16 [Rx] Omeprazole [PriLOSEC] 40 mg PO BIDAC capsule.dr 12/03/16 [Rx] Sucralfate [Carafate] 1 gm PO TID #1 bottle 12/03/16 [Rx] amLODIPine [Norvasc] 10 mg PO DAILY #0 tablet 12/03/16 [Rx] DULoxetine [Cymbalta] 30 mg PO DAILY 02/15/17 [History] Fluconazole [Diflucan] 100 mg PO DAILY #8 tablet 02/23/17 [Rx] levoFLOXacin [Levaquin] 500 mg PO Q48H #4 tablet 02/23/17 [Rx] 3 Allergy/AdvReac Type Severity Reaction Status Date / Time aspirin Allergy Rash Verified 02/15/17 02:44 pseudoephedrine Allergy Rash Ver[facility] 02/15[facility]17 02:[facility] All Systems PM: A 10-system review of systems was performed and is negative for pertinent findings except as documented above in the HPI. - EENT Eyes: no blurry vision - Cardiovascular Cardiovascular ROS IM: no chest pain, no claudication, no diaphoresis, no dyspnea, no dyspnea on exertion, no edema, no irregular heart rhythm - Respiratory Respiratory: no cough, no hemoptysis, no dyspnea on exertion - Gastrointestinal Gastrointestinal: no belching, no diarrhea - Genitourinary Genitourinary ROS male: no dysuria - Neurological Neurological ROS: memory loss - Psychiatric Psychiatric: confusion - Constitutional Vitals: Temp Pulse Resp BP Pulse Ox 91.3 F L 93 18 125/69 100 03/22/17 23:53 03/23/17 04:40 03/23/17 04:40 03/23/17 04:40 03/23/17 04:40 General appearance: Present: A&O X 1, no acute distress. Absent: answers questions appropriately - Head Head exam: Present: atraumatic, normal inspection, normocephalic - Expanded Head Exam Head exam expanded: Absent: abrasion, contusion - ENT ENT exam: Present: mucous membranes dry - Neck Neck exam general surgery: Present: normal inspection. Absent: lymphadenopathy - Respiratory Respiratory exam: Present: CTAB. Absent: chest wall tenderness, decreased breath sounds - Cardiovascular Cardiovascular exam: Present: RRR, +S1, +S2. Absent: diastolic murmur, gallop, rubs, systolic murmur - GI/Abdominal GI/Abdominal exam: Present: normal bowel sounds, soft, no peritoneal signs. Absent: distended, tenderness - Neurological Exam Neurological exam: Absent: oriented X3 - Psychiatric Psychiatric exam: Absent: normal affect Internal Med - H&P Results - Labs CBC & Chem 7: 03/23/17 00:58 03/23/17 00:58 <Cullen Bella - Last Filed: 03/23/17 06:48> Date of Encounter: 03/23/17 Internal Medicine - H&P: HPI History of present illness: Mr. Neal is a 61 year old male All Systems PM: A 10-system review of systems was performed and is negative for pertinent findings except as documented above in the HPI. - Constitutional Vitals: Temp Pulse Resp BP Pulse Ox 91.3 F L 84 12 81/52 99 03/22/17 23:53 03/23/17 06:00 03/23/17 06:00 03/23/17 06:00 03/23/17 06:00 Internal Med - H&P Results - Labs CBC & Chem 7: 03/23/17 00:58 03/23/17 00:58 - Attending Attestation I have seen and examined this patient independently. I have discussed with resident physician Dr Welch regarding the management plan. Agree with the documentation. Patient presented to ER with altered mental status, hypotension, hypothermia, and hypoglycemia. Consider severe sepsis and septic shock. Infectious site is undetermined but patient has a history of UTI. Assume he has urinary tract infection. Urine sample is difficult to get from ER as patient has empty bladder and the difficult Olivarse catheter. On exam, patient has no neck stiffness, no peritoneal sign or positive Peter's sign, no wound identified. Lungs are clear and Chest x-ray is negative. We will empirically treat patient with Vanco and Zosyn, and IV fluid. Treated hypothermia, hypoglycemia, and hypotension with bear hugger, D5 solution, and Levophed respectively. Will consult critical care, nephrology, and urology. Currently patient is stable with improved mental status, patient knows he is in hospital and can tell his name. We will continue close monitoring patient. Critical care time 35 minutes including old chart review, history, physical exam , and medical decision making.
[2017-03-23] MEDS ORDERED: Vancomycin 1,000 MG in D5% in Water 250 ML IVPB ONE (06:00)
[2017-03-23] MEDS ORDERED: Vancomycin 1,000 MG in D5% in Water 250 ML IVPB SCH (06:00)
[2017-03-23] MEDS ORDERED: Ringers Solution, Lactated 1,000 ML IVC ONE (07:36)
[2017-03-23 07:41] LABS: ABG Base Excess -17 mEq/L (-2 to 3); ABG HCO3 12 mEq/L (21-27); ABG Oxygen Saturation 95 % (95-98); ABG PCO2 36 mmHg (35-45); ABG PH 7.11 pH Units (7.32-7.45); ABG PO2 103 mmHg (85-104); ABG TCO2 13 mEq/L (20-26)
[2017-03-23] MEDS ORDERED: Sodium Bicarbonate 150 MEQ in D5% in Water 1,000 ML IVC SCH (07:45)
--- NOTE | 2017-03-23 07:49 | Urology Procedure Note ---
Date of Encounter: 03/23/17 Time of Encounter: 07:45 Procedures:Urology - Catheter Insertion (Urinary) Prophylactic antibiotics given: No Bladder Scan/Ultrasound used before catheterization: No Estimated amount of urin (mLs): 20 (sediment) Preparation: Povidone-Iodine Type of catheter inserted: 2 way, coude tip Topical anesthesia used: Yes (urojet) Results: successfully catheterized-immediate flow Urine Appearance: Clear Patient tolerated procedure: well Complications: none Additional comments: able to pass coude cath without resistance. only 20 cc residual. likely low urine output. pt seen in Dec for similar presentation. ultrasound showed no hydro but very abnormal bladder (thickened). If patient and family decide to pursue aggressive management of current illness/renal failure than I recommend a ct stone protocol. If any evidence of hydronephrosis upper tract obstruction might need to consider ureteral stents. At the same time, his renal failure is most likely prerenal and intrinsic.
[2017-03-23] MEDS: Potassium Chloride 40 MEQ/200 ML BAG IVPB PRN ×2 (07:51→09:18)
[2017-03-23 08:41] LABS: Bilirubin,Urine Negative (Negative); Blood,Urine Moderate (Negative); Clarity,Urine Turbid (Clear); Color,Urine Yellow (Yellow); Glucose,Urine (UA) Normal (Normal); Ketones,Urine Negative (Negative); Leukocyte Esterase,Urine Large (Negative); Nitrite,Urine Negative (Negative); Protein,Urine >=300 mg/dL (Neg-Trace); Specific Gravity,Urine 1.016 (1.010-1.025); Urobilinogen,Urine Normal (Normal)
[2017-03-23 08:51] LABS: Bacteria,Urine Present per hpf (None-Few); RBC,Urine Present per hpf (0-3); Squamous Epithelial Cell,Urine Present per lpf (None-Few); WBC,Urine TNTC per hpf (0-3)
--- NOTE | 2017-03-23 09:52 | Nephrology Consult Note ---
Date of Encounter: 03/23/17 Time of Encounter: 09:15 Assessment and Plan (1) KARI (acute kidney injury) Current Visit: Yes Status: Acute KARI in setting of sepsis most likely due to UTI on Vanco and Zosyn, cultures pending. Superimposed on CKD in setting of DM, HTN. Baseline creat 1.4-2.0. Recommend alternative to Vanco for gm+ coverage. Will consult IR for temp cath placement. No immediate need for HD today unless Bicarb or K worsens. Continue Bicarb drip. Renal US and CT abd pending. Will continue to monitor, avoid nephrotoxins, I&O's. History of Present Illness - Reason for Consult Acute Kidney Injury - History of Present Illness Mr. Neal is a 61 year old male, known to practice with CKD, baseline creat 1.4- 2.0, in setting of DM, HTN, seen in office last week for follow up to KARI in setting of hypovolemia and hypotension in late January requiring HD. Mr. Neal presented from nursing facility with mental status changes/non responsive. Patient unable to provide medical information therefore HPI obtained from prior records. Admitted with sepsis, temp 91.3 thought due to UTI and KARI due sepsis. Blood and urine cultures pending, with Vanco and Zosyn coverage. Currently in ICU, on one pressor, non responsive. Noted hypotension for extended duration SBP 56-60, now 80-112. Bicarb 13, on Bicarb drip. K 3.3. Creat 8.18. Urology consulted to place olivares due to prior history of bladder wall thickening and difficult placement. Essentially anuric. Thick purulent drainage in olivares tubing. CXR and head CT both negative for acute findings. This is a frail, chronicaly ill appearing individual, Breath sounds clear, no signs of fluid overload. Past Med Surg Social Fam HX - Past Medical History Medical history: CVA, dementia, diabetes, hyperlipidemia, hypertension, other Psychiatric history: depression, prior suicide attempt - Past Surgical History Surgical History: hip replacement, orthopedic, other, other - Social History Smoking Status: Never smoker Smokeless Tobacco Status: No Alcohol use: none Drug use: none - Family History Mother Living Status: Still Living Hx Family Cardiac Disorders: Yes (A-fib s/p pacemaker) Hx Family Endocrine Disorder: Yes (DM) Father Living Status: Hx Family Cardiac Disorders: Yes (heart disease) Hx Family Respiratory Disorders: No Hx Family Cancer: No Hx Family GI Disorders: No Hx Family Endocrine Disorder: No Hx Family Neuromuscular Disorders: No Hx Family Neurologic Disorders: No Hx Family HEENT Disorders: No Hx Family Autoimmune Disorders: No Brother Living Status: Hx Family Cardiac Disorders: Yes ([place]) Hx Family Endocrine Disorder: Yes (DM) Medications and Allergies Cyclosporine [Restasis] 1 drop OP BID 11/28/16 [History] Insulin Glargine,Hum.rec.anlog [Basaglar Kwikpen U-100] 10 unit SQ QPM 11/28/16 [History] Insulin LISPRO [HumaLOG] 2 - 10 units SQ TIDWM PRN 11/28/16 [History] Loratadine [Allergy Relief] 10 mg PO DAILY PRN 11/28/16 [History] Mirtazapine [Remeron] 15 mg PO HS 11/28/16 [History] Lisinopril [Zestril] 5 mg PO DAILY #0 tablet 12/03/16 [Rx] Omeprazole [PriLOSEC] 40 mg PO BIDAC capsule. 12/03/16 [Rx] Sucralfate [Carafate] 1 gm PO TID #1 bottle 12/03/16 [Rx] amLODIPine [Norvasc] 10 mg PO DAILY #0 tablet 12/03/16 [Rx] DULoxetine [Cymbalta] 30 mg PO DAILY 02/15/17 [History] 3 Allergy/AdvReac Type Severity Reaction Status Date / Time aspirin Allergy Rash Verified 02/15/17 02:44 pseudoephedrine Allergy Rash Verified 02/15/17 02:44 [From [facility]] Review of Systems All Systems: reviewed and no additional remarkable complaints except as stated Exam - Vital Signs Vital signs: Initial Vital Signs Temp Pulse Resp BP Pulse Ox 91.3 F L 83 18 91/57 100 03/22/17 23:53 03/22/17 23:53 03/22/17 23:53 03/22/17 23:53 03/22/17 23:53 Vital Signs - Last 8 Hours Pulse Resp BP Pulse Ox 03/23/17 08:00 96 12 112/74 100 03/23/17 07:37 90 03/23/17 07:03 90 13 98 03/23/17 06:00 84 12 81/52 99 03/23/17 05:48 89 Intake and Output 03/22/17 03/23/17 03/23/17 23:59 07:59 15:59 Intake Total 0 / 3020 100 / 100 Balance 0 / 3020 100 / 100 Intake: IV Fluids 100 / 100 Potassium Chloride 20 mEq/100 100 / 100 mL 40 meq In 200 ml @ 100 mls/ hr IVPB Q1H PRN Rx#:[id number] Oral 0 / 0 - General Appearance General appearance: chronically ill, frail EENT: mucous membranes dry Neck: no JVD Respiratory: clear Cardiology: no edema, regular rate, regular rhythm Gastrointestinal: hypoactive bowel sounds Integumentary: warm and dry Results - Lab Results 03/23/17 00:58 03/23/17 00:58 Most recent lab results ABG pH 7.11 pH Units (7.32-7.45) L* 03/23/17 07:36 ABG pCO2 36 mmHg (35-45) 03/23/17 07:36 ABG pO2 103 mmHg (85-104) 03/23/17 07:36 ABG HCO3 12 mEq/L (21-27) L 03/23/17 07:36 ABG O2 Saturation 95 % (95-98) 03/23/17 07:36 Calcium 8.2 mg/dL (8.6-10.3) L 03/23/17 00:58 Phosphorus 5.1 mg/dL (2.7-4.5) H 03/23/17 00:58 Magnesium 2.1 mg/dL (1.6-2.6) 03/23/17 00:58 Consult Discharge Plan - Plan Referrals: NONE,PCP [Primary Care Provider] -
[2017-03-23] MEDS ORDERED: *HR* Heparin 5,000 UNIT/ML VIAL ONE (10:01)
--- NOTE | 2017-03-23 10:29 | IR Procedure Note ---
Date of procedure: 03/23/17 Consent Obtained: Verbal consent Timeout: Correct patient and procedure verified, Correct site verified, Time out performed, Skin prep completed Indications: renal failure Procedure Performed: temp HDC Was there an clinical medical assistant present: No Site/Technique: rt IJ access Results/Findings: Adequate placement Estimated blood loss (cc): 1 Complications: None; Tolerated procedure well Post Procedure Treatment Plan: CXR Specimen: none
[2017-03-23 10:38] LABS: Calcium 7.7 mg/dL (8.6-10.3); Potassium 4.4 mEq/L (3.5-5.1)
[2017-03-23] MEDS: Pantoprazole 40 MG VIAL IVP SCH (11:25)
--- NOTE | 2017-03-23 11:53 | Pulmonology Consult Note ---
<Kristian Bhakta Luís - Last Filed: 03/23/17 11:46> Date of Encounter: 03/23/17 Time of Encounter: 07:10 Assessment and Plan (1) Septic shock Current Visit: Yes Status: Acute Presented with BP 91/57, temp 91.3, AMS Suspected source of infection is UTI given history of UTI's - purulent drainage from olivares - previously several different organisms on culture with varying degrees of sensitivity CVC in place - remains on Levophed Zosyn and Vanc - Blood and urine cultures pending - with poor renal function will consider change from Vanc to Meropenem if clinical status worsens LA 1.6, 1.0, 1.1 Pt found to have non-anion gap acidosis - will give K and Bicarb CT abdomen/pelvis pending (2) Hypotension Current Visit: Yes Status: Acute Remains hypotensive and on levophed - secondary to possible infection Qualifiers: Qualified Code(s): I95.9 - Hypotension, unspecified (3) KARI (acute kidney injury) Current Visit: Yes Status: Acute Cr 8.18 - the patient's renal function has been very labile in the past Urology and Nephrology consulted HD cath placed per IR (4) DVT prophylaxis Current Visit: Yes Status: Acute IPCDs History of Present Illness Consult date: 03/23/17 Requesting physician: Corey Welch Reason for consult: other (septic shock) Chief complaint: AMS History of present illness: Mr. Neal is a 61-year-old male with PMH of CVA, dementia, DM, cirrotic liver disease, HTN, and HLD who presents to the ED with a chief complaint of AMS. Patient was unable to provide any history. Was found unresponsive at nursing facility. Glucose there was found to be 250; received 4 units of insulin. EMS reports in route they rechecked it and it was 24. Patient presented altered and nonverbal. IV access was immediately established and patient was given an amp of D50 with improvement in his neurologic status. He was also noted to be hypothermic at 91.3 F. Was also hypotensive at 91/57. Other vitals were within normal limits. Sepsis workup was initiated. He was placed on a bear hugger and given warm blankets. CT scan of the head, CXR, lactate and blood cultures, UA were ordered. CT scan and CXR showed no acute process. Patient became hypotensive during his ED stay with SBP dropping into 50s. Patient was recent hospitalization for cystitis which appeared to be chronic as well as UTI, hypertension, hyperkalemia and acute on chronic renal injury. He was given 3 L of normal saline here with no improvement in his hypotension. Central line was placed. He appeared volume depleted on exam with significant collapsibility of his IJ during central line placement. Was started on vasopressor support w/ improvement of MAP. Prior urine CX with multiple antibiotic resistant organisms. Was given a dose of Zosyn. ED staff attempted to collect a specimen suprapubically without success. Levophed was started for hypotension as well as D5 half-normal due to hypoglycemia and hyperchloremia. BP subsequently improved. His temperature has continued to improve as well. Upon admission to ICU the patient was alert and oriented x2, and able to follow commands. He does not recall much of what happened or symptoms leading up to becoming unresponsive. He does state that he wants all treatment if needed including CPR and intubation. There is some question as to who his POA is. He was found to have a non-anion gap acidosis. He had very poor urine output. Past Med Surg Social Fam HX - Past Medical History Medical history: CVA, dementia, diabetes, hyperlipidemia, hypertension, other Psychiatric history: depression, prior suicide attempt - Past Surgical History Surgical History: hip replacement, orthopedic, other, other - Social History Smoking Status: Never smoker Smokeless Tobacco Status: No Alcohol use: none Drug use: none - Family History Mother Living Status: Still Living Hx Family Cardiac Disorders: Yes (A-fib s/p pacemaker) Hx Family Endocrine Disorder: Yes (DM) Father Living Status: Hx Family Cardiac Disorders: Yes (heart disease) Hx Family Respiratory Disorders: No Hx Family Cancer: No Hx Family GI Disorders: No Hx Family Endocrine Disorder: No Hx Family Neuromuscular Disorders: No Hx Family Neurologic Disorders: No Hx Family HEENT Disorders: No Hx Family Autoimmune Disorders: No Brother Living Status: Hx Family Cardiac Disorders: Yes (NH) Hx Family Endocrine Disorder: Yes (DM) Medications and Allergies Cyclosporine [Restasis] 1 drop OP BID 11/28/16 [History] Insulin Glargine,Hum.rec.anlog [Basaglar Kwikpen U-100] 10 unit SQ QPM 11/28/16 [History] Insulin LISPRO [HumaLOG] 2 - 10 units SQ TIDWM PRN 11/28/16 [History] Loratadine [Allergy Relief] 10 mg PO DAILY PRN 11/28/16 [History] Mirtazapine [Remeron] 15 mg PO HS 11/28/16 [History] Lisinopril [Zestril] 5 mg PO DAILY #0 tablet 12/03/16 [Rx] Omeprazole [PriLOSEC] 40 mg PO BIDAC capsule. 12/03/16 [Rx] Sucralfate [Carafate] 1 gm PO TID #1 bottle 12/03/16 [Rx] amLODIPine [Norvasc] 10 mg PO DAILY #0 tablet 12/03/16 [Rx] DULoxetine [Cymbalta] 30 mg PO DAILY 02/15/17 [History] 3 Allergy/AdvReac Type Severity Reaction Status Date / Time aspirin Allergy Rash Verified 02/15/17 02:44 pseudoephedrine Allergy Rash Verified 02/15/17 02:44 [From [facility]] All Systems: ROS is negative except for pertinent findings except as documented above in the HPI. Physical Examination Vital Signs: Vital Signs, Last 4 Hours Pulse Resp BP Pulse Ox 03/23/17 11:00 99 12 109/69 97 03/23/17 10:00 96 13 111/78 98 03/23/17 09:00 93 12 113/68 98 03/23/17 08:00 96 12 112/74 100 General appearance: no acute distress, alert Eyes: nonicteric ENT: oropharynx dry Effort: normal Auscultation: bilateral: clear Cardiovascular: regular rate and rhythm Gastrointestinal: normoactive bowel sounds, soft Extremities: no cyanosis, no edema normal mental status, non-focal exam Results - Laboratory Findings CBC and BMP: 03/23/17 00:58 03/23/17 09:27 ABG ABG pH 7.11 pH Units (7.32-7.45) L* 03/23/17 07:36 ABG pCO2 36 mmHg (35-45) 03/23/17 07:36 ABG pO2 103 mmHg (85-104) 03/23/17 07:36 ABG O2 Saturation 95 % (95-98) 03/23/17 07:36 PT/INR, D-dimer PT 10.6 Seconds (9.4-12.1) 03/23/17 00:58 Abnormal lab findings: Abnormal lab results RBC 3.24 M/mcL (4.19-5.50) L 03/23/17 00:58 Hgb 9.4 g/dL (12.9-16.9) L 03/23/17 00:58 Hct 30.1 % (37.5-50.1) L 03/23/17 00:58 MCHC 31.2 g/dL (31.6-35.5) L 03/23/17 00:58 RDW 15.5 % (11.5-14.5) H 03/23/17 00:58 APTT 47.9 Seconds (26.0-36.0) H 03/23/17 00:58 ABG pH 7.11 pH Units (7.32-7.45) L* 03/23/17 07:36 ABG HCO3 12 mEq/L (21-27) L 03/23/17 07:36 ABG Total CO2 13 mEq/L (20-26) L 03/23/17 07:36 ABG Base Excess -17 mEq/L (-2 to 3) L 03/23/17 07:36 Sodium 134 mEq/L (136-145) L 03/23/17 09:27 Chloride 114 mEq/L (98-107) H 03/23/17 09:27 Carbon Dioxide 13 mEq/L (23-29) L 03/23/17 09:27 BUN 49 mg/dL (8-23) H 03/23/17 09:27 Creatinine 7.15 mg/dL (0.70-1.30) H 03/23/17 09:27 Est GFR ( Amer) 10 (> 60) L 03/23/17 09:27 Est GFR (Non-Af Amer) 8 (> 60) L 03/23/17 09:27 Glucose 145 mg/dL (70-105) H 03/23/17 09:27 POC Glucose 179 (58-89) H 03/23/17 11:19 Calcium 7.7 mg/dL (8.6-10.3) L 03/23/17 09:27 Phosphorus 5.1 mg/dL (2.7-4.5) H 03/23/17 00:58 AST 8 Units/L (13-39) L 03/23/17 00:58 Serum Total Protein 5.4 g/dL (6.4-8.9) L 03/23/17 00:58 Albumin 2.7 g/dL (3.5-5.7) L 03/23/17 00:58 Albumin/Globulin Ratio 1.0 (1.1-2.2) L 03/23/17 00:58 Ur Specimen Adequacy See below A 03/23/17 07:36 Urine Clarity Turbid (Clear) A 03/23/17 07:36 Urine Protein >=300 mg/dL (Neg-Trace) H 03/23/17 07:36 Urine Blood Moderate (Negative) H 03/23/17 07:36 Ur Leukocyte Esterase Large (Negative) H 03/23/17 07:36 Urine Microscopic WBC TNTC per hpf (0-3) H 03/23/17 07:36 Ur Culture Indicated? YES (NO) A 03/23/17 07:36 - Clinical Findings Intake & Output: Intake & Output 03/22/17 03/23/17 03/23/17 23:59 07:59 15:59 Intake Total 3019 163 / 163 Balance 3019 163 / 163 Consult Discharge Plan - Plan Referrals: NONE,PCP [Primary Care Provider] - <Derrick Pedro S - Last Filed: 03/23/17 21:12> Date of Encounter: 03/23/17 All Systems: A 10-system review of systems was performed and is negative for pertinent findings except as documented above in the HPI. Physical Examination Vital Signs: Vital Signs, Last 4 Hours Temp Pulse Resp BP Pulse Ox 03/23/17 20:26 96.7 F L 03/23/17 18:00 92 13 96/67 99 03/23/17 17:00 96 13 119/78 99 Results - Laboratory Findings CBC and BMP: 03/23/17 00:58 03/23/17 14:20 ABG ABG pH 7.31 pH Units (7.32-7.45) L 03/23/17 14:10 ABG pCO2 35 mmHg (35-45) 03/23/17 14:10 ABG pO2 86 mmHg (85-104) 03/23/17 14:10 ABG O2 Saturation 96 % (95-98) 03/23/17 14:10 PT/INR, D-dimer PT 10.6 Seconds (9.4-12.1) 03/23/17 00:58 Abnormal lab findings: Abnormal lab results RBC 3.24 M/mcL (4.19-5.50) L 03/23/17 00:58 Hgb 9.4 g/dL (12.9-16.9) L 03/23/17 00:58 Hct 30.1 % (37.5-50.1) L 03/23/17 00:58 MCHC 31.2 g/dL (31.6-35.5) L 03/23/17 00:58 RDW 15.5 % (11.5-14.5) H 03/23/17 00:58 APTT 47.9 Seconds (26.0-36.0) H 03/23/17 00:58 ABG pH 7.31 pH Units (7.32-7.45) L 03/23/17 14:10 ABG HCO3 18 mEq/L (21-27) L 03/23/17 14:10 ABG Total CO2 19 mEq/L (20-26) L 03/23/17 14:10 ABG Base Excess -8 mEq/L (-2 to 3) L 03/23/17 14:10 Sodium 134 mEq/L (136-145) L 03/23/17 09:27 Chloride 114 mEq/L (98-107) H 03/23/17 09:27 Carbon Dioxide 13 mEq/L (23-29) L 03/23/17 09:27 BUN 49 mg/dL (8-23) H 03/23/17 09:27 Creatinine 7.15 mg/dL (0.70-1.30) H 03/23/17 09:27 Est GFR ( Amer) 10 (> 60) L 03/23/17 09:27 Est GFR (Non-Af Amer) 8 (> 60) L 03/23/17 09:27 Glucose 145 mg/dL (70-105) H 03/23/17 09:27 POC Glucose 180 (58-89) H 03/23/17 16:50 Calcium 7.7 mg/dL (8.6-10.3) L 03/23/17 09:27 Phosphorus 5.1 mg/dL (2.7-4.5) H 03/23/17 00:58 AST 8 Units/L (13-39) L 03/23/17 00:58 Serum Total Protein 5.4 g/dL (6.4-8.9) L 03/23/17 00:58 Albumin 2.7 g/dL (3.5-5.7) L 03/23/17 00:58 Albumin/Globulin Ratio 1.0 (1.1-2.2) L 03/23/17 00:58 Ur Specimen Adequacy See below A 03/23/17 07:36 Urine Clarity Turbid (Clear) A 03/23/17 07:36 Urine Protein >=300 mg/dL (Neg-Trace) H 03/23/17 07:36 Urine Blood Moderate (Negative) H 03/23/17 07:36 Ur Leukocyte Esterase Large (Negative) H 03/23/17 07:36 Urine Microscopic WBC TNTC per hpf (0-3) H 03/23/17 07:36 Ur Culture Indicated? YES (NO) A 03/23/17 07:36 - Clinical Findings Intake & Output: Intake & Output 03/23/1718 03/23/17 07:59 15:59 23:59 Intake Total 0 / 3020 1256 / 1256 0 / 0 Output Total 125 / 125 550 / 550 Balance 0 / 3020 1131 / 1131 -550 / -550 - Attending Attestation I saw and evaluated this patient and my medical decision-making was reviewed with the Resident Physician. I agree with the documented findings, disposition and treatment plan as described except to the extent set forth below. We independently had [id number] contact with the patient I spent of 45 minutes of Critical Care time with this patient. It involved decision making of high complexity to assess, manipulate, and support vital organ system failure and/or to prevent further life threatening deterioration of the patient's condition. The time involved in the performance of separately reportable procedures was not counted toward critical care time. Patient seen and examined at bedside Labs, radiology, chart personally reviewed. CONSTRUCTION MGR:Patient is conscious oriented times x 2 baseline dementia could not remember what happened presented with altered mental status toxic /metabolic encephalopathy Pulm: Patient is saturating well on Room air no evidence of V/Q mismatch Cards: Septic shock secondary to Complicated UTI to continue Levophed FEN-GI:Patient is NPO for now Renal:Acute on Chronic Kidney injury patient has neurogenic bladder with some hydronephrosis in past appreciate Urology input and managment might need ureteral stent will get CT abdomen and pelvis . Nephrology consulted temporary HD catheter was placed ID: Septic shock secondary to complicated UTI now on broad spectrum antibiotics Heme/Onc: Labs reviewed Endo: Glucose Monitored Hypogylycemia secondary to sepsis Integ/MSK: Skin Care per routine ICU Nursing Protocol to prevent ulcers. Lines: All lines examined without evidence of infection : Dispo: Critically ill high chance of Cardiorespiratory failure CODE: Full Code . Tried to Contact Family went into voice message
[2017-03-23] MEDS: *HR* Heparin 5,000 UNIT/ML VIAL SQ SCH ×2 (13:29→21:06)
[2017-03-23 14:13] LABS: ABG Base Excess -8 mEq/L (-2 to 3); ABG HCO3 18 mEq/L (21-27); ABG Oxygen Saturation 96 % (95-98); ABG PCO2 35 mmHg (35-45); ABG PH 7.31 pH Units (7.32-7.45); ABG PO2 86 mmHg (85-104); ABG TCO2 19 mEq/L (20-26)
[2017-03-23] MEDS: D5% in Lactated Ringers 1,000 ML IVC SCH (16:11)
--- NOTE | 2017-03-23 18:01 | Electrocardiograph Report ---
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
[2017-03-24] MEDS: D5% in Lactated Ringers 1,000 ML IVC SCH ×2 (00:18→09:45)
[2017-03-24 03:51] LABS: Basophils % 0.4 %; Eosinophils # 0.1 K/mcL (0.0-0.6); Eosinophils % 2.2 %; Hematocrit 24.9 % (37.5-50.1); Immature Granulocytes % 0.6 % (0-4); Lymphocytes # 1.1 K/mcL (0.6-4.6); Lymphocytes % 23.8 %; Mean Corpuscular HGB Conc 32.1 g/dL (31.6-35.5); Mean Corpuscular Hemoglobin 28.6 pg (28.0-33.3); Mean Corpuscular Volume 88.9 fL (83.0-100.0); Mean Platelet Volume 9.9 fL (9.4-12.4); Monocytes # 0.4 K/mcL (0.0-1.3); Monocytes % 7.6 %; Platelet Count 180 K/mcL (140-400); Red Cell Distribution Width 15.7 % (11.5-14.5); Segmented Neutrophils % 65.4 %
[2017-03-24 04:19] LABS: Calcium 7.8 mg/dL (8.6-10.3); Potassium 3.6 mEq/L (3.5-5.1)
[2017-03-24 04:47] LABS: Magnesium 1.7 mg/dL (1.6-2.6)
[2017-03-24] MEDS: *HR* Heparin 5,000 UNIT/ML VIAL SQ SCH ×4 (04:55→23:00)
[2017-03-24] MEDS: Potassium Chloride 40 MEQ/200 ML BAG IVPB PRN (06:54)
[2017-03-24] MEDS: Norepinephrine 4 MG in D5% in Water 250 ML IVC SCH (07:48)
--- NOTE | 2017-03-24 07:52 | Urology Progress Note ---
Date of Encounter: 03/23/17 Time of Encounter: 17:00 - Assessment and Plan (1) Acute renal failure Current Visit: Yes Status: Acute Assessment and plan: renal ultrasound results noted. no hydronephrosis. renal function slowly improving. no need for surgical intervention. do not remove olivares cath. Qualifiers: Acute renal failure type: unspecified Qualified Code(s): N17.9 - Acute kidney failure, unspecified Progress Note Narrative: no acute events. increasing UO Objective Initial Vital Signs Temp Pulse Resp BP Pulse Ox 91.3 F L 83 18 91/57 100 03/22/17 23:53 03/22/17 23:53 03/22/17 23:53 03/22/17 23:53 03/22/17 23:53 - General physical appearance Present: no distress - Additional Exam urine clearing. - Labs 03/24/17 03:26 03/24/17 03:26 Diabetes panel 03/23/17 03/23/17 03/24/17 Range/Units 09:27 14:20 03:26 Sodium 134 L 142 (136-145) mEq/L Potassium 4.4 D 4.0 3.6 (3.5-5.1) mEq/L Chloride 114 H 115 H (98-107) mEq/L Carbon Dioxide 13 L 22 L (23-29) mEq/L BUN 49 H 45 H (8-23) mg/dL Creatinine 7.15 H 6.43 H (0.70-1.30) mg/dL Glucose 145 H 105 (70-105) mg/dL Calcium 7.7 L 7.8 L (8.6-10.3) mg/dL Calcium panel 03/23/17 03/24/17 Range/Units 09:27 03:26 Calcium 7.7 L 7.8 L (8.6-10.3) mg/dL Pituitary panel 03/23/17 03/23/17 03/24/17 Range/Units 09:27 14:20 03:26 Sodium 134 L 142 (136-145) mEq/L Potassium 4.4 D 4.0 3.6 (3.5-5.1) mEq/L Chloride 114 H 115 H (98-107) mEq/L Carbon Dioxide 13 L 22 L (23-29) mEq/L BUN 49 H 45 H (8-23) mg/dL Creatinine 7.15 H 6.43 H (0.70-1.30) mg/dL Glucose 145 H 105 (70-105) mg/dL Calcium 7.7 L 7.8 L (8.6-10.3) mg/dL Adrenal panel 03/23/17 03/23/17 03/24/17 Range/Units 09:27 14:20 03:26 Sodium 134 L 142 (136-145) mEq/L Potassium 4.4 D 4.0 3.6 (3.5-5.1) mEq/L Chloride 114 H 115 H (98-107) mEq/L Carbon Dioxide 13 L 22 L (23-29) mEq/L BUN 49 H 45 H (8-23) mg/dL Creatinine 7.15 H 6.43 H (0.70-1.30) mg/dL Glucose 145 H 105 (70-105) mg/dL Calcium 7.7 L 7.8 L (8.6-10.3) mg/dL - VTE Documentation of Mechanical Device: Intermittent pneumatic compression device Consult Discharge Plan - Plan Referrals: NONE,PCP [Primary Care Provider] -
[2017-03-24] MEDS: Pantoprazole 40 MG VIAL IVP SCH (07:53)
--- NOTE | 2017-03-24 08:44 | Nephrology Progress Note ---
Date of Encounter: 03/24/17 Time of Encounter: 08:25 - Assessment and Plan (1) KARI (acute kidney injury) Current Visit: Yes Status: Acute KARI in setting of sepsis most likely due to UTI on Vanco and Zosyn, cultures pending. Superimposed on CKD in setting of DM, HTN. Baseline creat 1.4-2.0. Recommend alternative to Vanco for gm+ coverage. Renal fct improveing, creat 6.43 (8.81). Documented urine output 675cc. IR placed temp cath. No immediate need for HD today. Renal US and CT abd noted. Will continue to monitor, avoid nephrotoxins, I&O's. Subjective Interval history: Awake, appropriate conversation. States feels better and wants to eat. Objective - Vital Signs Vital signs: Vital Signs Temp Pulse Resp BP Pulse Ox 03/24/17 08:21 96.2 F L 03/24/17 08:00 75 16 128/68 100 03/24/17 07:00 73 16 122/65 99 03/24/17 06:00 71 12 122/89 100 03/24/17 05:32 96.8 F L 03/24/17 05:00 80 12 114/70 100 03/24/17 04:00 73 12 109/73 97 03/24/17 03:00 75 12 101/76 99 03/24/17 02:26 77 03/24/17 02:00 80 12 123/76 98 03/24/17 01:00 74 12 112/71 98 03/24/17 00:19 97.7 F 03/24/17 00:00 82 12 153/90 100 03/23/17 23:00 78 12 114/76 100 03/23/17 22:00 82 12 107/81 99 03/23/17 21:00 81 13 133/81 99 03/23/17 20:26 96.7 F L 03/23/17 19:00 88 03/23/17 18:00 92 13 96/67 99 03/23/17 17:00 96 13 119/78 99 03/23/17 16:30 97.9 F 03/23/17 16:00 99 14 107/75 99 03/23/17 15:00 101 12 121/80 99 03/23/17 14:00 97 12 128/79 100 03/23/17 13:00 103 16 107/68 98 03/23/17 12:17 97.7 F 03/23/17 11:00 99 12 109/69 97 03/23/17 10:00 96 13 111/78 98 03/23/17 09:00 93 12 113/68 98 Intake and Output 03/23/17 03/24/17 03/24/17 23:59 07:59 15:59 Intake Total 100 / 100 1195 / 1195 Output Total 550 / 550 800 / 800 350 / 350 Balance -450 / -450 395 / 395 -350 / -350 Intake: IV Fluids 100 / 100 1195 / 1195 D5% & Lact. Ringers 1000 Ml Bag 1000 / 1000 1,000 ML @ 125 mls/hr IVC .Q8H ALESSANDRA Rx#:[id number] Levophed 4 MG In Dextrose 5% 95 / 95 250 ML @ 8 MCG/MIN 30.48 mls/hr IVC CONT ALESSANDRA Rx#:[id number] Zosyn 3.375 GM In 0.9 % Sodium 100 / 100 Chloride 100 ML @ 25 mls/hr IVPB Q12H ALESSANDRA Rx#:[id number] Potassium Chloride 20 mEq/100 100 / 100 mL 40 meq In 200 ml @ 100 mls/ hr IVPB Q1H PRN Rx#:[id number] Oral 0 / 0 Output: Catheter 550 / 550 800 / 800 350 / 350 Other: Weight 57.5 kg Blood Glucose* 180 87 Patient Weight 03/24/17 23:59 Weight 57.5 kg - General Appearance General appearance: Present: chronically ill, frail EENT: Present: mucous membranes moist Neck: Present: no JVD Respiratory: Present: clear Cardiology: Present: edema, regular rate, regular rhythm Additional Comments: mild pedal Gastrointestinal: Present: hypoactive bowel sounds, no tenderness Integumentary: Present: warm and dry Psychiatric: Present: mood/affect appropriate, cooperative - Lab 03/24/17 03:26 03/24/17 03:26 Most recent lab results ABG pH 7.31 pH Units (7.32-7.45) L 03/23/17 14:10 ABG pCO2 35 mmHg (35-45) 03/23/17 14:10 ABG pO2 86 mmHg (85-104) 03/23/17 14:10 ABG HCO3 18 mEq/L (21-27) L 03/23/17 14:10 ABG O2 Saturation 96 % (95-98) 03/23/17 14:10 Calcium 7.8 mg/dL (8.6-10.3) L 03/24/17 03:26 Phosphorus 5.1 mg/dL (2.7-4.5) H 03/23/17 00:58 Magnesium 1.7 mg/dL (1.6-2.6) 03/24/17 03:26 - VTE Documentation of Mechanical Device: Intermittent pneumatic compression device Consult Discharge Plan - Plan Referrals: NONE,PCP [Primary Care Provider] -
--- NOTE | 2017-03-24 09:27 | Pulmonology Progress Note ---
<Kristian Bhakta Luís - Last Filed: 03/24/17 11:20> Date of Encounter: 03/24/17 Time of Encounter: 09:32 Assessment and Plan (1) Septic shock Current Visit: Yes Status: Acute Presented with BP 91/57, temp 91.3, AMS Suspected source of infection is UTI given history of UTI's - purulent drainage from olivares - previously several different organisms on culture with varying degrees of sensitivity CVC in place - remains on Levophed Zosyn and Vanc - Blood and urine cultures pending - with poor renal function will consider change from Vanc to Meropenem if clinical status worsens - will add Levaquin at this time as well LA 1.6, 1.0, 1.1 Pt found to have non-anion gap acidosis - much improved after K and bicarb CT abdomen/pelvis - Small volume right pleural effusion. Bibasilar relaxation atelectasis. Small volume pericardial effusion. Cholelithiasis. No acute inflammatory process evident about the gallbladder fossa. Calcific atherosclerotic disease aorta. No aneurysm. Diverticulosis coli without CT evidence of acute diverticulitis Urine culture - yeast only at this time Blood cultures - prelim negative (2) Hypotension Current Visit: Yes Status: Acute Resolved - pt is no longer requiring pressor support Normotensive now. Continue to monitor - may need to resume home antihypertensive meds soon Qualifiers: Hypotension type: other hypotension type Qualified Code(s): I95.89 - Other hypotension (3) KARI (acute kidney injury) Current Visit: Yes Status: Acute Cr improving - down to (4) DVT prophylaxis Current Visit: Yes Status: Acute Subjective Principal diagnosis: AMS, sepsis Interval history: He is improving and much more alert today. He is asking for something to eat. He denies concerns at this time. Objective PUL Vital signs: Last Vital Signs Temp 96.2 F L 03/24/17 08:21 Pulse 79 03/24/17 09:00 Resp 14 03/24/17 09:00 BP 117/65 03/24/17 09:00 Pulse Ox 99 03/24/17 09:00 General appearance: no acute distress Eyes: nonicteric ENT: oropharynx moist Effort: normal Auscultation: bilateral: clear Cardiovascular: regular rate and rhythm Extremities: no cyanosis, no edema normal mental status, non-focal exam Results - Laboratory Findings CBC and BMP: 03/24/17 03:26 02/03/18 03:26 ABG ABG pH 7.31 pH Units (7.32-7.45) L 03/23/17 14:10 ABG pCO2 35 mmHg (35-45) 03/23/17 14:10 ABG pO2 86 mmHg (85-104) 03/23/17 14:10 ABG O2 Saturation 96 % (95-98) 03/23/17 14:10 PT/INR, D-dimer PT 10.6 Seconds (9.4-12.1) 03/23/17 00:58 Abnormal lab findings: Abnormal lab results RBC 2.80 M/mcL (4.19-5.50) L 03/24/17 03:26 Hgb 8.0 g/dL (12.9-16.9) L 03/24/17 03:26 Hct 24.9 % (37.5-50.1) L 03/24/17 03:26 RDW 15.7 % (11.5-14.5) H 03/24/17 03:26 APTT 47.9 Seconds (26.0-36.0) H 03/23/17 00:58 ABG pH 7.31 pH Units (7.32-7.45) L 03/23/17 14:10 ABG HCO3 18 mEq/L (21-27) L 03/23/17 14:10 ABG Total CO2 19 mEq/L (20-26) L 03/23/17 14:10 ABG Base Excess -8 mEq/L (-2 to 3) L 03/23/17 14:10 Chloride 115 mEq/L (98-107) H 03/24/17 03:26 Carbon Dioxide 22 mEq/L (23-29) L 03/24/17 03:26 BUN 45 mg/dL (8-23) H 03/24/17 03:26 Creatinine 6.43 mg/dL (0.70-1.30) H 03/24/17 03:26 Est GFR ( Amer) 11 (> 60) L 03/24/17 03:26 Est GFR (Non-Af Amer) 9 (> 60) L 03/24/17 03:26 Calculated Osmolality 306 (280-300) H 03/24/17 03:26 Calcium 7.8 mg/dL (8.6-10.3) L 03/24/17 03:26 Phosphorus 5.1 mg/dL (2.7-4.5) H 03/23/17 00:58 AST 8 Units/L (13-39) L 03/23/17 00:58 Serum Total Protein 5.4 g/dL (6.4-8.9) L 03/23/17 00:58 Albumin 2.7 g/dL (3.5-5.7) L 03/23/17 00:58 Albumin/Globulin Ratio 1.0 (1.1-2.2) L 03/23/17 00:58 Ur Specimen Adequacy See below A 03/23/17 07:36 Urine Clarity Turbid (Clear) A 03/23/17 07:36 Urine Protein >=300 mg/dL (Neg-Trace) H 03/23/17 07:36 Urine Blood Moderate (Negative) H 03/23/17 07:36 Ur Leukocyte Esterase Large (Negative) H 03/23/17 07:36 Urine Microscopic WBC TNTC per hpf (0-3) H 03/23/17 07:36 Ur Culture Indicated? YES (NO) A 03/23/17 07:36 - Microbiology Findings Microbiology Findings: Microbiology, Last 48 Hours 03/23/17 07:36 Urine Culture - Preliminary Urine,Clean Catch Yeast Species - Clinical Findings Intake & Output: Intake & Output 03/23/17 03/24/17 03/24/17 23:59 07:59 15:59 Intake Total 100 / 100 1195 / 1195 Output Total 550 / 550 800 / 800 350 / 350 Balance -450 / -450 395 / 395 -350 / -350 Weight 57.5 kg - VTE Documentation of Mechanical Device: Intermittent pneumatic compression device Consult Discharge Plan - Plan Referrals: NONE,PCP [Primary Care Provider] - <Derrick Pedro - Last Filed: 03/24/17 23:01> Date of Encounter: 03/24/17 Objective PUL Vital signs: Last Vital Signs Temp 97.3 F L 03/24/17 16:00 Pulse 89 03/24/17 22:00 Resp 18 03/24/17 22:00 BP 117/74 03/24/17 22:00 Pulse Ox 98 03/24/17 22:00 Results - Laboratory Findings CBC and BMP: 03/24/17 03:26 03/24/17 15:05 ABG ABG pH 7.31 pH Units (7.32-7.45) L 03/23/17 14:10 ABG pCO2 35 mmHg (35-45) 03/23/17 14:10 ABG pO2 86 mmHg (85-104) 03/23/17 14:10 ABG O2 Saturation 96 % (95-98) 03/23/17 14:10 PT/INR, D-dimer PT 10.6 Seconds (9.4-12.1) 03/23/17 00:58 Abnormal lab findings: Abnormal lab results RBC 2.80 M/mcL (4.19-5.50) L 03/24/17 03:26 Hgb 8.0 g/dL (12.9-16.9) L 03/24/17 03:26 Hct 24.9 % (37.5-50.1) L 03/24/17 03:26 RDW 15.7 % (11.5-14.5) H 03/24/17 03:26 APTT 47.9 Seconds (26.0-36.0) H 03/23/17 00:58 ABG pH 7.31 pH Units (7.32-7.45) L 03/23/17 14:10 ABG HCO3 18 mEq/L (21-27) L 03/23/17 14:10 ABG Total CO2 19 mEq/L (20-26) L 03/23/17 14:10 ABG Base Excess -8 mEq/L (-2 to 3) L 03/23/17 14:10 Chloride 115 mEq/L (98-107) H 03/24/17 03:26 Carbon Dioxide 22 mEq/L (23-29) L 03/24/17 03:26 BUN 45 mg/dL (8-23) H 03/24/17 03:26 Creatinine 6.43 mg/dL (0.70-1.30) H 03/24/17 03:26 Est GFR ( Amer) 11 (> 60) L 03/24/17 03:26 Est GFR (Non-Af Amer) 9 (> 60) L 03/24/17 03:26 POC Glucose 182 (58-89) H 03/24/17 20:09 Calculated Osmolality 306 (280-300) H 03/24/17 03:26 Calcium 7.8 mg/dL (8.6-10.3) L 03/24/17 03:26 Phosphorus 5.1 mg/dL (2.7-4.5) H 03/23/17 00:58 AST 8 Units/L (13-39) L 03/23/17 00:58 Serum Total Protein 5.4 g/dL (6.4-8.9) L 03/23/17 00:58 Albumin 2.7 g/dL (3.5-5.7) L 03/23/17 00:58 Albumin/Globulin Ratio 1.0 (1.1-2.2) L 03/23/17 00:58 Ur Specimen Adequacy See below A 03/23/17 07:36 Urine Clarity Turbid (Clear) A 03/23/17 07:36 Urine Protein >=300 mg/dL (Neg-Trace) H 03/23/17 07:36 Urine Blood Moderate (Negative) H 03/23/17 07:36 Ur Leukocyte Esterase Large (Negative) H 03/23/17 07:36 Urine Microscopic WBC TNTC per hpf (0-3) H 03/23/17 07:36 Ur Culture Indicated? YES (NO) A 03/23/17 07:36 - Microbiology Findings Microbiology Findings: Microbiology, Last 48 Hours 03/23/17 07:36 Urine Culture - Preliminary Urine,Clean Catch Yeast Species - Clinical Findings Intake & Output: Intake & Output 03/24/17 03/24/17 03/24/17 07:59 15:59 23:59 Intake Total 1195 / 1195 1790 / 1790 600 / 600 Output Total 800 / 800 1250 / 1250 150 / 150 Balance 395 / 395 540 / 540 450 / 450 Weight 57.5 kg - Attending Attestation I saw and evaluated this patient and my medical decision-making was reviewed with the Resident Physician. I agree with the documented findings, disposition and treatment plan as described except to the extent set forth below. We independently had [id number] contact with the patient Patient seen and examined at bedside Labs, radiology, chart personally reviewed. CORN SHUCKER:Patient is conscious oriented times x 2 baseline dementia could not remember what happened presented with altered mental status toxic /metabolic encephalopathy improving much better today Pulm: Patient is saturating well on Room air no evidence of V/Q mismatch Cards: Septic shock secondary to Complicated UTI resolving off levophed overnight FEN-GI:Advance diet as tolerated Renal:Acute on Chronic Kidney injury patient has neurogenic bladder with not much hydronephrosis will continue the current management renal function improving , ID: Septic shock secondary to complicated UTI now on broad spectrum antibiotics will start to descalate tomorrow Heme/Onc: Labs reviewed Endo: Glucose Monitored Integ/MSK: Skin Care per routine ICU Nursing Protocol to prevent ulcers. Lines: All lines examined without evidence of infection : Dispo: Critically ill high chance of Cardiorespiratory failure CODE: Full Code . Tried to Contact Family went into voice message
[2017-03-24] MEDS ORDERED: Levofloxacin 750 MG/150 ML 750 MG/150 ML BAG IVPB SCH (10:00)
[2017-03-25 03:39] LABS: Basophils % 0.6 %; Eosinophils % 0.6 %; Hematocrit 25.6 % (37.5-50.1); Hemoglobin 8.1 g/dL (12.9-16.9); Immature Granulocytes % 0.9 % (0-4); Lymphocytes # 0.4 K/mcL (0.6-4.6); Lymphocytes % 7.9 %; Mean Corpuscular HGB Conc 31.6 g/dL (31.6-35.5); Mean Corpuscular Hemoglobin 28.5 pg (28.0-33.3); Mean Corpuscular Volume 90.1 fL (83.0-100.0); Mean Platelet Volume 9.9 fL (9.4-12.4); Monocytes # 0.1 K/mcL (0.0-1.3); Monocytes % 2.8 %; Neutrophils # 4.1 K/mcL (1.6-8.9); Platelet Count 133 K/mcL (140-400); Red Blood Count 2.84 M/mcL (4.19-5.50); Red Cell Distribution Width 15.6 % (11.5-14.5); Segmented Neutrophils % 87.2 %
[2017-03-25 04:07] LABS: Calcium 7.8 mg/dL (8.6-10.3); Potassium 4.2 mEq/L (3.5-5.1)
[2017-03-25] MEDS: *HR* Heparin 5,000 UNIT/ML VIAL SQ SCH ×3 (04:53→23:14)
[2017-03-25] MEDS ORDERED: *HR* Dextrose 50 % in Water (Syg) 50 ML SYRINGE ONE ×2 (07:24→11:29)
--- NOTE | 2017-03-25 08:00 | Nephrology Progress Note ---
Date of Encounter: 03/25/17 Time of Encounter: 07:55 - Assessment and Plan (1) KARI (acute kidney injury) Current Visit: Yes Status: Acute KARI in setting of sepsis most likely due to UTI on Vanco and Zosyn, Urine-yeast , blood culture prelim no growth. Superimposed on CKD in setting of DM, HTN. Baseline creat 1.4-2.0. Recommend alternative to Vanco for gm+ coverage. Renal fct improving, creat 5.04 (6.43). Documented urine output 2600cc. IR placed temp cath. No immediate need for HD today. Renal US and CT abd noted. Will continue to monitor, avoid nephrotoxins, I&O's. Subjective Principal diagnosis: AMS, sepsis Interval history: Awake, appropriate conversation. States feels better, eating and drinking well per patient. Objective - Vital Signs Vital signs: Vital Signs Temp Pulse Resp BP Pulse Ox 03/25/17 06:00 89 24 164/96 99 03/25/17 05:00 88 22 155/94 99 03/25/17 04:42 98.6 F 03/25/17 03:08 81 03/25/17 03:00 85 20 169/94 99 03/25/17 02:00 86 20 161/95 99 03/25/17 01:00 83 157/87 98 03/25/17 00:51 96.5 F L 03/25/17 00:00 90 18 134/82 98 03/24/17 23:06 81 03/24/17 23:00 79 18 136/82 98 03/24/17 22:00 89 18 117/74 98 03/24/17 21:00 82 18 98 03/24/17 20:00 88 12 98/57 90 03/24/17 19:57 81 03/24/17 19:00 82 12 109/64 97 03/24/17 18:00 95 16 119/69 100 03/24/17 17:00 84 16 115/76 100 03/24/17 16:00 97.3 F L 71 14 140/86 100 03/24/17 15:00 77 16 119/65 100 03/24/17 14:00 80 14 115/89 100 03/24/17 13:00 81 14 113/65 99 03/24/17 12:00 77 14 144/81 100 03/24/17 11:35 75 03/24/17 11:30 97.6 F 03/24/17 11:00 75 16 120/68 99 03/24/17 10:00 72 14 134/79 100 03/24/17 09:00 79 14 117/65 99 03/24/17 08:21 96.2 F L 03/24/17 08:00 75 16 128/68 100 Intake and Output 03/24/17 03/24/17 03/25/17 15:59 23:59 07:59 Intake Total 1790 / 1790 1100 / 1100 Output Total 1250 / 1250 550 / 550 600 / 600 Balance 540 / 540 550 / 550 -600 / -600 Intake: IV Fluids 1550 / 1550 100 / 100 D5% & Lact. Ringers 1000 Ml Bag 1100 / 1100 1,000 ML @ 125 mls/hr IVC .Q8H ALESSANDRA Rx#:[id number] Levaquin Premix 750mg/150 mL 150 / 150 750 mg In 150 ml @ 100 mls/hr IVPB Q48H ALESSANDRA Rx#:[id number] Zosyn 3.375 GM In 0.9 % Sodium 100 / 100 100 / 100 Chloride 100 ML @ 25 mls/hr IVPB Q12H ALESSANDRA Rx#:[id number] Potassium Chloride 20 mEq/100 200 / 200 mL 40 meq In 200 ml @ 100 mls/ hr IVPB Q1H PRN Rx#:[id number] Oral 240 / 240 500 / 500 Free Water 500 / 500 Output: Catheter 1250 / 1250 550 / 550 600 / 600 Other: Meal Lunch Percent of Meal Consumed 5% Stool Size Large Stool Consistency soft Stool Characteristics Seedy Stool Color Yellow Juni Colored Weight 57.4 kg Blood Glucose* 106 70 Patient Weight 03/25/17 23:59 Weight 57.4 kg - General Appearance General appearance: Present: chronically ill EENT: Present: mucous membranes moist Neck: Present: no JVD Additional Comments: harsh Cardiology: Present: no edema, regular rate, regular rhythm Gastrointestinal: Present: hypoactive bowel sounds Integumentary: Present: warm and dry Psychiatric: Present: mood/affect appropriate, cooperative - Lab 03/25/17 03:25 03/25/17 03:25 Most recent lab results ABG pH 7.31 pH Units (7.32-7.45) L 03/23/17 14:10 ABG pCO2 35 mmHg (35-45) 03/23/17 14:10 ABG pO2 86 mmHg (85-104) 03/23/17 14:10 ABG HCO3 18 mEq/L (21-27) L 03/23/17 14:10 ABG O2 Saturation 96 % (95-98) 03/23/17 14:10 Calcium 7.8 mg/dL (8.6-10.3) L 03/25/17 03:25 Phosphorus 5.1 mg/dL (2.7-4.5) H 03/23/17 00:58 Magnesium 1.7 mg/dL (1.6-2.6) 03/24/17 03:26 - VTE Documentation of Mechanical Device: Intermittent pneumatic compression device Consult Discharge Plan - Plan Referrals: NONE,PCP [Primary Care Provider] -
[2017-03-25] MEDS: Norepinephrine 4 MG in D5% in Water 250 ML IVC SCH (08:39)
[2017-03-25] MEDS: Pantoprazole 40 MG VIAL IVP SCH (08:47)
--- NOTE | 2017-03-25 11:28 | Pulmonology Progress Note ---
<Kristian Bhakta Luís - Last Filed: 03/25/17 11:30> Date of Encounter: 03/25/17 Time of Encounter: 11:26 Assessment and Plan (1) Septic shock Current Visit: Yes Status: Acute Presented with BP 91/57, temp 91.3, AMS Suspected source of infection is UTI given history of UTI's - purulent drainage from olivares - previously several different organisms on culture with varying degrees of sensitivity CVC in place - remains on Levophed Zosyn and Levaquin - Blood and urine cultures pending - discontinue Vanc as previous cultures are gram-negative and one staph that was alfaro-sensitive LA 1.6, 1.0, 1.1 Pt found to have non-anion gap acidosis - much improved after K and bicarb CT abdomen/pelvis - Small volume right pleural effusion. Bibasilar relaxation atelectasis. Small volume pericardial effusion. Cholelithiasis. No acute inflammatory process evident about the gallbladder fossa. Calcific atherosclerotic disease aorta. No aneurysm. Diverticulosis coli without CT evidence of acute diverticulitis Urine culture - yeast only at this time - pending final results Blood cultures - prelim negative (2) Hypotension Current Visit: Yes Status: Acute Resolved - pt is no longer requiring pressor support Normotensive now. Continue to monitor - may need to resume home antihypertensive meds soon Qualifiers: Hypotension type: other hypotension type Qualified Code(s): I95.89 - Other hypotension (3) KARI (acute kidney injury) Current Visit: Yes Status: Acute Cr improving - will give some fluids (4) DVT prophylaxis Current Visit: Yes Status: Acute Subjective Principal diagnosis: AMS, sepsis Interval history: He is improving and much more alert today. He denies concerns at this time. Objective PUL Vital signs: Last Vital Signs Temp 98.2 F 03/25/17 07:30 Pulse 75 03/25/17 10:00 Resp 20 03/25/17 10:00 BP 141/86 03/25/17 10:00 Pulse Ox 99 03/25/17 10:00 General appearance: no acute distress Eyes: nonicteric ENT: oropharynx moist Effort: normal Auscultation: bilateral: clear Cardiovascular: regular rate and rhythm Extremities: no cyanosis, no edema Results - Laboratory Findings CBC and BMP: 03/25/17 03:25 03/25/17 03:25 ABG ABG pH 7.31 pH Units (7.32-7.45) L 03/23/17 14:10 ABG pCO2 35 mmHg (35-45) 03/23/17 14:10 ABG pO2 86 mmHg (85-104) 03/23/17 14:10 ABG O2 Saturation 96 % (95-98) 03/23/17 14:10 PT/INR, D-dimer PT 10.6 Seconds (9.4-12.1) 03/23/17 00:58 Abnormal lab findings: Abnormal lab results RBC 2.84 M/mcL (4.19-5.50) L 03/25/17 03:25 Hgb 8.1 g/dL (12.9-16.9) L 03/25/17 03:25 Hct 25.6 % (37.5-50.1) L 03/25/17 03:25 RDW 15.6 % (11.5-14.5) H 03/25/17 03:25 Plt Count 133 K/mcL (140-400) L 03/25/17 03:25 Lymphocytes # 0.4 K/mcL (0.6-4.6) L 03/25/17 03:25 APTT 47.9 Seconds (26.0-36.0) H 03/23/17 00:58 ABG pH 7.31 pH Units (7.32-7.45) L 03/23/17 14:10 ABG HCO3 18 mEq/L (21-27) L 03/23/17 14:10 ABG Total CO2 19 mEq/L (20-26) L 03/23/17 14:10 ABG Base Excess -8 mEq/L (-2 to 3) L 03/23/17 14:10 Sodium 132 mEq/L (136-145) L D 03/25/17 03:25 Chloride 108 mEq/L (98-107) H 03/25/17 03:25 Carbon Dioxide 20 mEq/L (23-29) L 03/25/17 03:25 BUN 38 mg/dL (8-23) H 03/25/17 03:25 Creatinine 5.04 mg/dL (0.70-1.30) H 03/25/17 03:25 Est GFR ( Amer) 14 (> 60) L 03/25/17 03:25 Est GFR (Non-Af Amer) 12 (> 60) L 03/25/17 03:25 POC Glucose 48 (58-89) L* 03/25/17 11:22 Calcium 7.8 mg/dL (8.6-10.3) L 03/25/17 03:25 Phosphorus 5.1 mg/dL (2.7-4.5) H 03/23/17 00:58 AST 8 Units/L (13-39) L 03/23/17 00:58 Serum Total Protein 5.4 g/dL (6.4-8.9) L 03/23/17 00:58 Albumin 2.7 g/dL (3.5-5.7) L 03/23/17 00:58 Albumin/Globulin Ratio 1.0 (1.1-2.2) L 03/23/17 00:58 Ur Specimen Adequacy See below A 03/23/17 07:36 Urine Clarity Turbid (Clear) A 03/23/17 07:36 Urine Protein >=300 mg/dL (Neg-Trace) H 03/23/17 07:36 Urine Blood Moderate (Negative) H 03/23/17 07:36 Ur Leukocyte Esterase Large (Negative) H 03/23/17 07:36 Urine Microscopic WBC TNTC per hpf (0-3) H 03/23/17 07:36 Ur Culture Indicated? YES (NO) A 03/23/17 07:36 - Microbiology Findings Microbiology Findings: Microbiology, Last 48 Hours 03/23/17 07:36 Urine Culture - Preliminary Urine,Clean Catch Yeast Species - Clinical Findings Intake & Output: Intake & Output 03/24/17 03/25/17 03/25/17 23:59 07:59 15:59 Intake Total 1100 / 1100 100 / 100 Output Total 550 / 550 600 / 600 300 / 300 Balance 550 / 550 -600 / -600 -200 / -200 Weight 57.4 kg - VTE Documentation of Mechanical Device: Intermittent pneumatic compression device Consult Discharge Plan - Plan Referrals: NONE,PCP [Primary Care Provider] - <Derrick Pedro - Last Filed: 03/26/17 00:10> Date of Encounter: 03/26/17 Objective PUL Vital signs: Last Vital Signs Temp 98.1 F 03/25/17 23:37 Pulse 80 03/25/17 23:37 Resp 18 03/25/17 23:37 BP 153/84 03/25/17 23:37 Pulse Ox 100 03/25/17 23:37 Results - Laboratory Findings CBC and BMP: 03/25/17 03:25 03/25/17 03:25 ABG ABG pH 7.31 pH Units (7.32-7.45) L 03/23/17 14:10 ABG pCO2 35 mmHg (35-45) 03/23/17 14:10 ABG pO2 86 mmHg (85-104) 03/23/17 14:10 ABG O2 Saturation 96 % (95-98) 03/23/17 14:10 PT/INR, D-dimer PT 10.6 Seconds (9.4-12.1) 03/23/17 00:58 Abnormal lab findings: Abnormal lab results RBC 2.84 M/mcL (4.19-5.50) L 03/25/17 03:25 Hgb 8.1 g/dL (12.9-16.9) L 03/25/17 03:25 Hct 25.6 % (37.5-50.1) L 03/25/17 03:25 RDW 15.6 % (11.5-14.5) H 03/25/17 03:25 Plt Count 133 K/mcL (140-400) L 03/25/17 03:25 Lymphocytes # 0.4 K/mcL (0.6-4.6) L 03/25/17 03:25 APTT 47.9 Seconds (26.0-36.0) H 03/23/17 00:58 ABG pH 7.31 pH Units (7.32-7.45) L 03/23/17 14:10 ABG HCO3 18 mEq/L (21-27) L 03/23/17 14:10 ABG Total CO2 19 mEq/L (20-26) L 03/23/17 14:10 ABG Base Excess -8 mEq/L (-2 to 3) L 03/23/17 14:10 Sodium 132 mEq/L (136-145) L D 03/25/17 03:25 Chloride 108 mEq/L (98-107) H 03/25/17 03:25 Carbon Dioxide 20 mEq/L (23-29) L 03/25/17 03:25 BUN 38 mg/dL (8-23) H 03/25/17 03:25 Creatinine 5.04 mg/dL (0.70-1.30) H 03/25/17 03:25 Est GFR ( Amer) 14 (> 60) L 03/25/17 03:25 Est GFR (Non-Af Amer) 12 (> 60) L 03/25/17 03:25 POC Glucose 106 (58-89) H 03/25/17 19:31 Calcium 7.8 mg/dL (8.6-10.3) L 03/25/17 03:25 Phosphorus 5.1 mg/dL (2.7-4.5) H 03/23/17 00:58 AST 8 Units/L (13-39) L 03/23/17 00:58 Serum Total Protein 5.4 g/dL (6.4-8.9) L 03/23/17 00:58 Albumin 2.7 g/dL (3.5-5.7) L 03/23/17 00:58 Albumin/Globulin Ratio 1.0 (1.1-2.2) L 03/23/17 00:58 Ur Specimen Adequacy See below A 03/23/17 07:36 Urine Clarity Turbid (Clear) A 03/23/17 07:36 Urine Protein >=300 mg/dL (Neg-Trace) H 03/23/17 07:36 Urine Blood Moderate (Negative) H 03/23/17 07:36 Ur Leukocyte Esterase Large (Negative) H 03/23/17 07:36 Urine Microscopic WBC TNTC per hpf (0-3) H 03/23/17 07:36 Ur Culture Indicated? YES (NO) A 03/23/17 07:36 - Microbiology Findings Microbiology Findings: Microbiology, Last 48 Hours 03/23/17 07:36 Urine Culture - Preliminary Urine,Clean Catch Yeast Species - Clinical Findings Intake & Output: Intake & Output 03/25/17 03/25/17 03/26/17 15:59 23:59 07:59 Intake Total 100 / 100 Output Total 950 / 950 1100 / 1100 Balance -850 / -850 -1100 / -1100 - Attending Attestation Attending Attestation I saw and evaluated this patient and my medical decision-making was reviewed with the Resident Physician. I agree with the documented findings, disposition and treatment plan as described except to the extent set forth below. We independently had [id number] contact with the patient Patient seen and examined at bedside Labs, radiology, chart personally reviewed. MONKEY KEEPER:Patient is conscious oriented times x 2 baseline dementia could not remember what happened presented with altered mental status toxic /metabolic encephalopathy improving much better today Pulm: Patient is saturating well on Room air no evidence of V/Q mismatch Cards: Septic shock secondary to Complicated UTI resolving off . FEN-GI:Advance diet as tolerated Renal:Acute on Chronic Kidney injury patient has neurogenic bladder with not much hydronephrosis will continue the current management renal function improving , ID: Septic shock secondary to complicated UTI now on broad spectrum antibiotics will start to descalate tomorrow Heme/Onc: Labs reviewed Endo: Glucose Monitored Integ/MSK: Skin Care per routine ICU Nursing Protocol to prevent ulcers. Lines: All lines examined without evidence of infection : Dispo: Critically ill high chance of Cardiorespiratory failure CODE: Full Code . Tried to Contact Family went into voice message
[2017-03-25] MEDS ORDERED: *HR* Dextrose 50 % in Water (Syg) 50 ML SYRINGE IVP PRN ×2 (12:15→19:05)
[2017-03-25] MEDS ORDERED: Dextrose Gel 15 GM/37.5 ML TUBE PO PRN ×4 (12:15→19:05)
[2017-03-25] MEDS ORDERED: D5% in Water 1,000 ML IVC PRN ×2 (12:15→19:05)
[2017-03-25] MEDS ORDERED: Albumin 25% 25gram/100mL 25 GM/100 ML IV.SOLN IVPB SCH (16:00)
[2017-03-25] MEDS ORDERED: D5% in 0.45% NACL 1,000 ML IVC SCH (16:45)
[2017-03-25] MEDS ORDERED: Naloxone 0.4 MG/ML INJ IVP PRN (19:05)
[2017-03-25] MEDS ORDERED: Potassium Chloride 40 MEQ/200 ML BAG IVPB PRN (19:05)
[2017-03-25] MEDS: D5% in 0.45% NACL 1,000 ML IVC SCH (20:46)
[2017-03-25] MEDS: Albumin 25% 25gram/100mL 25 GM/100 ML IV.SOLN IVPB SCH (23:14)
[2017-03-26] MEDS: D5% in 0.45% NACL 1,000 ML IVC SCH (04:44)
[2017-03-26] MEDS: *HR* Heparin 5,000 UNIT/ML VIAL SQ SCH ×2 (04:44→12:44)
[2017-03-26 05:00] LABS: Immature Granulocytes % 0.8 % (0-4)
[2017-03-26 05:02] LABS: Basophils % 0.8 %; Eosinophils # 0.1 K/mcL (0.0-0.6); Hematocrit 20.1 % (37.5-50.1); Hemoglobin 6.4 g/dL (12.9-16.9); Immature Platelets 3.2 % (1.1-6.1); Lymphocytes # 0.4 K/mcL (0.6-4.6); Lymphocytes % 17.5 %; Mean Corpuscular HGB Conc 31.8 g/dL (31.6-35.5); Mean Corpuscular Hemoglobin 28.4 pg (28.0-33.3); Mean Corpuscular Volume 89.3 fL (83.0-100.0); Mean Platelet Volume 10.6 fL (9.4-12.4); Monocytes # 0.2 K/mcL (0.0-1.3); Monocytes % 7.7 %; Neutrophils # 1.8 K/mcL (1.6-8.9); Red Blood Count 2.25 M/mcL (4.19-5.50); Red Cell Distribution Width 15.6 % (11.5-14.5); Segmented Neutrophils % 71.2 %
[2017-03-26 05:09] LABS: BUN/Creatinine Ratio 7 (6-26); Blood Urea Nitrogen 34 mg/dL (8-23); Carbon Dioxide 16 mEq/L (23-29); Chloride 104 mEq/L (98-107); Sodium 133 mEq/L (136-145)
[2017-03-26 05:10] LABS: Calcium 8.3 mg/dL (8.6-10.3); Glucose 280 mg/dL (70-105); Osmolality,Calculated 294 (280-300); eGFR For African Americans 16 (> 60); eGFR For Non-African Americans 13 (> 60)
[2017-03-26 06:35] LABS: Platelet Count 80 K/mcL (140-400)
[2017-03-26] MEDS: Albumin 25% 25gram/100mL 25 GM/100 ML IV.SOLN IVPB SCH (08:06)
--- NOTE | 2017-03-26 08:22 | Nephrology Progress Note ---
Date of Encounter: 03/26/17 Time of Encounter: 08:19 - Assessment and Plan (1) Acute kidney failure, unspecified Current Visit: Yes Status: Acute The patient has acute kidney injury in the setting of urinary retention and urinary tract infection. He has not required dialysis. His renal function is improving on a daily basis. His urine output is improving as well. Lab work today does suggest he is developing a new onset pancytopenia. Etiology is unclear. We will continue to monitor his renal function. Qualifiers: Acute renal failure type: unspecified Qualified Code(s): N17.9 - Acute kidney failure, unspecified (2) Bladder wall thickening Current Visit: No Status: Acute Subjective Principal diagnosis: AMS, sepsis Interval history: Patient reports he is feeling better. His renal function continues to improve. Urine output is excellent. He is developing what appears to be new onset pancytopenia. Objective - Vital Signs Vital signs: Vital Signs Temp Pulse Resp BP Pulse Ox 03/26/17 07:55 97.8 F 86 17 133/93 99 03/26/17 04:28 98 F 86 18 154/93 98 03/25/17 23:37 98.1 F 80 18 153/84 100 03/25/17 18:50 97.6 F 79 14 164/90 100 03/25/17 18:00 56 155/85 100 03/25/17 17:00 55 118/69 100 03/25/17 16:00 56 16 101/65 100 03/25/17 15:00 59 18 111/59 100 03/25/17 14:00 72 20 144/116 100 03/25/17 13:00 74 18 152/97 100 03/25/17 12:00 78 18 157/76 100 03/25/17 11:59 85 03/25/17 11:30 98.4 F 03/25/17 11:00 80 20 151/83 100 03/25/17 10:00 75 20 141/86 99 03/25/17 09:00 75 18 149/96 100 Intake and Output 03/25/17 03/26/17 03/26/17 23:59 07:59 15:59 Intake Total 1100 / 1100 Output Total 1100 / 1100 1300 / 1300 Balance -1100 / -1100 -200 / -200 Intake: IV Fluids 1100 / 1100 D5% And 0.45% Nacl 1000 Ml Bag 1000 / 1000 1,000 ML @ 100 mls/hr IVC .Q10H ALESSANDRA Rx#:[id number] Flexbumin 25 gm In 100 ml @ 60 100 / 100 mls/hr IVPB Q8HR ALESSANDRA Rx#: [id number] Output: Catheter 1100 / 1100 1300 / 1300 Other: Stool Size Moderate Stool Consistency loose Stool Color Brown # Bowel Movement Diapers 1 Blood Glucose* 176 325 - General Appearance Exam: Patient is thin and appears chronically ill. He is alert and oriented. He is in no acute distress. Lungs breath sounds otherwise clear. Heart regular rhythm. Abdomen is benign. There is no peripheral edema. She Zahira dialysis catheter in the right internal jugular vein. A Spears catheter is in place draining clear yellow urine. - Lab 03/26/17 04:35 03/26/17 04:35 Most recent lab results ABG pH 7.31 pH Units (7.32-7.45) L 03/23/17 14:10 ABG pCO2 35 mmHg (35-45) 03/23/17 14:10 ABG pO2 86 mmHg (85-104) 03/23/17 14:10 ABG HCO3 18 mEq/L (21-27) L 03/23/17 14:10 ABG O2 Saturation 96 % (95-98) 03/23/17 14:10 Calcium 8.3 mg/dL (8.6-10.3) L 03/26/17 04:35 Phosphorus 5.1 mg/dL (2.7-4.5) H 03/23/17 00:58 Magnesium 1.7 mg/dL (1.6-2.6) 03/24/17 03:26 - VTE Documentation of Mechanical Device: Intermittent pneumatic compression device Consult Discharge Plan - Plan Referrals: NONE,PCP [Primary Care Provider] -
[2017-03-26] MEDS ORDERED: Pantoprazole 40 MG VIAL IVP SCH (09:00)
[2017-03-26] MEDS ORDERED: Aminoglycoside Consult 1 EACH MC ONE (09:17)
[2017-03-26 09:31] LABS: Hepatitis B Surface Antibody 0.14 mIU/mL; Hepatitis B Surface Antigen Nonreactive (Nonreactive)
[2017-03-26] MEDS ORDERED: Levofloxacin 500 MG/100 ML 500 MG/100 ML BAG IVPB SCH (10:00)
[2017-03-26] MEDS: Levofloxacin 500 MG/100 ML 500 MG/100 ML BAG IVPB SCH (11:46)
[2017-03-26] MEDS: 0.9 % Sodium Chloride 1,000 ML IVC SCH (11:47)
[2017-03-26] MEDS ORDERED: Loratadine 10 MG TABLET PO PRN (11:58)
[2017-03-26] MEDS ORDERED: D5% in Water 1,000 ML IVC PRN (11:59)
[2017-03-26] MEDS ORDERED: Dextrose Gel 15 GM/37.5 ML TUBE PO PRN ×2 (11:59)
--- NOTE | 2017-03-26 12:09 | Internal Med Progress Note ---
Date of Encounter: 03/26/17 Time of Encounter: 12:03 - Assessment and plan (1) Septic shock Current Visit: Yes Status: Acute Assessment and plan: Off pressors. Presumed to be secondary to urinary tract infection. I will continue with IV Levaquin. Stop Zosyn.. (2) Hypothermia Current Visit: Yes Status: Acute Assessment and plan: Result Qualifiers: Encounter type: subsequent encounter Qualified Code(s): T68.XXXD - Hypothermia, subsequent encounter (3) Hsnwd-mi-poypmsa kidney injury Current Visit: No Status: Acute Assessment and plan: Patient has CKD3 at baseline that has worsened here on admission. CKD likely from diabetic nephropathy. Improving with IV fluids. Nephrology is following. Avoid nephrotoxins. No dialysis up to this point is indicated. Good UOP Qualifiers: Acute renal failure type: unspecified Chronic kidney disease stage: stage 3 (moderate) Qualified Code(s): N17.9 - Acute kidney failure, unspecified; N18.3 - Chronic kidney disease, stage 3 (moderate); N18.3 - Chronic kidney disease, stage 3 (moderate) (4) Anemia in chronic kidney disease (CKD) Current Visit: No Status: Acute Assessment and plan: This is likely dilutional given the amount of IV fluid he has received. He is also noted to have lower WBC count as well as lower platelets since admission. For now we will transfuse him 1 unit. Check iron studies. Check stools for occult feeding. She is hemodynamically stable. Qualifiers: Chronic kidney disease stage: stage 3 (moderate) Qualified Code(s): N18.3 - Chronic kidney disease, stage 3 (moderate); D63.1 - Anemia in chronic kidney disease; D63.1 - Anemia in chronic kidney disease (5) Diabetes Current Visit: No Status: Chronic Assessment and plan: Stop dextrose and start patient on insulin sliding scale. Continue Accu-Cheks. Qualifiers: Diabetes mellitus type: type 2 Diabetes mellitus complication status: with hyperglycemia Diabetes mellitus [facility] insulin use: with manager green use Qualified Code(s): E11.65 - Type 2 diabetes mellitus with hyperglycemia; Z79.4 - shelter (current) use of insulin; Z79.4 - transplant coordinator (current) use of insulin ; Z79.4 - shelter (current) use of insulin; Z79.4 - shelter (current) use of insulin (6) Hypoglycemia Current Visit: No Status: Resolved Assessment and plan: Since resolved now and he is actually hyperglycemic. We will switch D5 normal saline. We will add insulin sliding scale. (7) HTN (hypertension) Current Visit: No Status: Chronic Assessment and plan: We will put the patient on his home Norvasc and add IV hydralazine when necessary. Hold off on restarting lisinopril given his kidney function. Qualifiers: Hypertension type: renovascular hypertension Qualified Code(s): I15.0 - Renovascular hypertension (8) DVT prophylaxis Current Visit: Yes Status: Acute Assessment and plan: Give the drop in hemoglobin. Heparin and put patient in SCDs. - Subjective Interval history: Patient was seen and examined. No acute events. He was transferred out of the ICU and has been there for 3 days since admission due to septic shock/ hypothermia suspected to be from a urinary tract source. She was also hypoglycemic and has been maintained on a D5 fluids. He is also noted to have acute kidney injury on chronic kidney disease and nephrology has been following the patient with improvement in his kidney function with IV fluids. This morning he is noted to have a hemoglobin of 6.4 although there is no source of bleeding. His glucoses elevated in the 300s. Been afebrile. - Constitutional Vitals: Temp Pulse Resp BP Pulse Ox 97.8 F 86 17 133/93 99 03/26/17 08:05 03/26/17 08:05 03/26/17 08:05 03/26/17 08:05 03/26/17 08:05 General appearance: Present: A&O X 1, no acute distress. Absent: answers questions appropriately Exam: GEN: NAD CVS: RRR. S1, S2, No m/r/g RESP: CTAB ABD: Soft, NT, ND, +BS EXT: No edema. 2+ DP. No rashes NEURO: Nonfocal Internal Medicine: Result - Labs CBC & Chem 7: 03/26/17 04:35 03/26/17 04:35 Labs: Short CBC 03/26/17 Range/Units 04:35 WBC 2.5 L (4.3-11.1) K/mcL Hgb 6.4 L D (12.9-16.9) g/dL Hct 20.1 L (37.5-50.1) % Plt Count 80 L (140-400) K/mcL Neutrophils # 1.8 (1.6-8.9) K/mcL BMP 03/26/17 04:35 Sodium 133 L Potassium 4.0 Chloride 104 Carbon Dioxide 16 L BUN 34 H Creatinine 4.56 H Glucose 280 H Calcium 8.3 L - ABG Interpretation ABG results: ABG ABG pH 7.31 pH Units (7.32-7.45) L 03/23/17 14:10 ABG pCO2 35 mmHg (35-45) 03/23/17 14:10 ABG pO2 86 mmHg (85-104) 03/23/17 14:10 ABG O2 Saturation 96 % (95-98) 03/23/17 14:10 PT/INR, D-dimer PT 10.6 Seconds (9.4-12.1) 03/23/17 00:58 - VTE Documentation of Mechanical Device: Intermittent pneumatic compression device Consult Discharge Plan - Plan Referrals: NONE,PCP [Non-Partnered Physician] -
[2017-03-26] MEDS: Insulin LISPRO 300 UNITS/3 ML VIAL SQ SCH ×2 (12:42→18:04)
[2017-03-26] MEDS: amLODIPine 5 MG TABLET PO SCH (12:43)
[2017-03-26] MEDS ORDERED: 0.9 % Sodium Chloride 250 ML ONE (13:47)
[2017-03-26 15:06] LABS: Transferrin < 75 mg/dL (203-362)
[2017-03-26 15:21] LABS: Iron 69 mcg/dL (65-175)
[2017-03-26 15:44] LABS: Ferritin 588 ng/ml (20-250)
[2017-03-26] MEDS: Insulin DETEMIR 100 UNIT/ML X5UNITS SQ SCH (18:03)
[2017-03-26] MEDS: Mirtazapine 15 MG TABLET PO SCH (20:49)
[2017-03-26] MEDS: (Cyclosporine [Restasis] 1 DROP) OP SCH (20:49)
[2017-03-27] MEDS: *HR* Dextrose 50 % in Water (Syg) 50 ML SYRINGE IVP PRN ×2 (00:03→07:13)
[2017-03-27] MEDS: Insulin LISPRO 300 UNITS/3 ML VIAL SQ SCH ×4 (00:09→18:02)
[2017-03-27 06:25] LABS: Hematocrit 26.1 % (37.5-50.1); Immature Granulocytes % 0.3 % (0-4); Lymphocytes % 19.3 %; Mean Corpuscular HGB Conc 33.7 g/dL (31.6-35.5); Mean Corpuscular Hemoglobin 28.4 pg (28.0-33.3); Mean Corpuscular Volume 84.2 fL (83.0-100.0); Mean Platelet Volume 10.4 fL (9.4-12.4); Platelet Count 104 K/mcL (140-400); Red Cell Distribution Width 15.3 % (11.5-14.5); Segmented Neutrophils % 65.1 %
[2017-03-27 06:26] LABS: Basophils % 0.5 %; Eosinophils # 0.2 K/mcL (0.0-0.6); Eosinophils % 5.2 %; Lymphocytes # 0.7 K/mcL (0.6-4.6); Monocytes # 0.4 K/mcL (0.0-1.3); Monocytes % 9.6 %; Neutrophils # 2.5 K/mcL (1.6-8.9)
[2017-03-27 06:35] LABS: Hemoglobin 8.8 g/dL (12.9-16.9)
[2017-03-27 08:20] LABS: Magnesium 1.3 mg/dL (1.6-2.6); Potassium 2.7 mEq/L (3.5-5.1)
[2017-03-27] MEDS: Insulin DETEMIR 100 UNIT/ML X5UNITS SQ SCH (08:21)
[2017-03-27] MEDS: amLODIPine 5 MG TABLET PO SCH (08:36)
[2017-03-27] MEDS: (Cyclosporine [Restasis] 1 DROP) OP SCH ×2 (08:51→20:16)
[2017-03-27] MEDS: 0.9 % Sodium Chloride 1,000 ML IVC SCH (10:25)
[2017-03-27] MEDS ORDERED: Potassium Chloride 40 MEQ, Lidocaine 1% 2 ML in D5% in Water 500 ML IVPB ONE (10:44)
[2017-03-27] MEDS ORDERED: Magnesium Oxide 400 MG TABLET PO ONE (10:44)
[2017-03-27] MEDS ORDERED: D5% in 0.9% NACL 1,000 ML IVC ONE ×2 (10:50→21:52)
--- NOTE | 2017-03-27 10:52 | Internal Med Progress Note ---
Date of Encounter: 03/27/17 Time of Encounter: 10:50 - Assessment and plan (1) Septic shock Current Visit: Yes Status: Acute Assessment and plan: Off pressors. Presumed to be secondary to urinary tract infection. Continue Levaquin (2) Hypothermia Current Visit: Yes Status: Acute Assessment and plan: Resolved Qualifiers: Encounter type: subsequent encounter Qualified Code(s): T68.XXXD - Hypothermia, subsequent encounter (3) Nmlmd-tn-ifzoqdl kidney injury Current Visit: No Status: Acute Assessment and plan: Patient has CKD3 at baseline that has worsened here on admission. CKD likely from diabetic nephropathy. Continues to improve with IV fluids. Nephrology is following. Avoid nephrotoxins. No dialysis up to this point is indicated. Good UOP Qualifiers: Acute renal failure type: unspecified Chronic kidney disease stage: stage 3 (moderate) Qualified Code(s): N17.9 - Acute kidney failure, unspecified; N18.3 - Chronic kidney disease, stage 3 (moderate); N18.3 - Chronic kidney disease, stage 3 (moderate) (4) Anemia in chronic kidney disease (CKD) Current Visit: No Status: Acute Assessment and plan: Received 1 unit PRBCs yesterday. Adequate response and his hemoglobin this morning. He has no signs of bleeding. I suspect most of this was dilutional given IV fluids. Negative stools for occult feeding. Iron studies with anemia of chronic disease. He is hemodynamically stable. Qualifiers: Chronic kidney disease stage: stage 3 (moderate) Qualified Code(s): N18.3 - Chronic kidney disease, stage 3 (moderate); D63.1 - Anemia in chronic kidney disease; D63.1 - Anemia in chronic kidney disease (5) Diabetes Current Visit: No Status: Chronic Assessment and plan: His glucose is up and down. Apparently the nursing staff on the unit number the patient for previous admissions and his glucose has been always hard to control. He had hypoglycemic episodes after I started him on long-acting 15 units of Levemir yesterday. I will stop that this morning. We will switch his fluids to D5 normal saline. We will leave him on insulin sliding scale. Qualifiers: Diabetes mellitus type: type 2 Diabetes mellitus complication status: with hyperglycemia Diabetes mellitus exterminator helper termite insulin use: with exterminator helper termite use Qualified Code(s): E11.65 - Type 2 diabetes mellitus with hyperglycemia; Z79.4 - director long term care (current) use of insulin; Z79.4 - director long term care (current) use of insulin ; Z79.4 - director long term care (current) use of insulin; Z79.4 - [facility] (current) use of insulin (6) Hypoglycemia Current Visit: No Status: Resolved Assessment and plan: As above. (7) HTN (hypertension) Current Visit: No Status: Chronic Assessment and plan: Stable. Continue current regimen. Lisinopril on hold due to acute kidney injury.. Qualifiers: Hypertension type: renovascular hypertension Qualified Code(s): I15.0 - Renovascular hypertension (8) DVT prophylaxis Current Visit: Yes Status: Acute Assessment and plan: Heparin subcutaneous - Subjective Interval history: Patient was seen and examined. The patient per nursing staff had a glucose of 16 this morning with hypoglycemic symptoms. It did go up to 60. He has been put on D5W since then. His repeat glucose is in the 90s now. He has no symptoms whatsoever. His glucose has been up and down with it going up to the 400s yesterday. I did start him on Levemir 15 units yesterday which she received. Otherwise no acute events. He continues to have good urine output. Has been afebrile. He received 1 unit PRBCs yesterday. He was transferred out of the ICU and has been there for 3 days since admission due to septic shock/ hypothermia suspected to be from a urinary tract source. He was also hypoglycemic and has been maintained on a D5 fluids. He is also noted to have acute kidney injury on chronic kidney disease and nephrology has been following the patient with improvement in his kidney function with IV fluids. - Constitutional Vitals: Temp Pulse Resp BP Pulse Ox 96 F L 65 16 148/84 93 03/27/17 07:12 03/27/17 10:20 03/27/17 10:20 03/27/17 07:12 03/27/17 10:20 General appearance: Present: A&O X 1, no acute distress. Absent: answers questions appropriately Exam: GEN: NAD CVS: RRR. S1, S2, No m/r/g RESP: CTAB ABD: Soft, NT, ND, +BS EXT: No edema. 2+ DP. No rashes NEURO: Nonfocal Internal Medicine: Result - Labs CBC & Chem 7: 03/27/17 04:30 03/27/17 07:12 Labs: Short CBC 03/27/17 Range/Units 04:30 WBC 3.8 L D (4.3-11.1) K/mcL Hgb 8.8 L D (12.9-16.9) g/dL Hct 26.1 L (37.5-50.1) % Plt Count 104 L (140-400) K/mcL Neutrophils # 2.5 (1.6-8.9) K/mcL BMP 03/26/17 03/27/17 04:35 07:12 Sodium 133 L 138 Potassium 4.0 2.7 L Chloride 104 108 H Carbon Dioxide 16 L 20 L BUN 34 H 31 H Creatinine 4.56 H 3.83 H Glucose 280 H 110 H Calcium 8.3 L 8.0 L - ABG Interpretation ABG results: ABG ABG pH 7.31 pH Units (7.32-7.45) L 03/23/17 14:10 ABG pCO2 35 mmHg (35-45) 03/23/17 14:10 ABG pO2 86 mmHg (85-104) 03/23/17 14:10 ABG O2 Saturation 96 % (95-98) 03/23/17 14:10 PT/INR, D-dimer PT 10.6 Seconds (9.4-12.1) 03/23/17 00:58 - VTE Documentation of Mechanical Device: Intermittent pneumatic compression device Consult Discharge Plan - Plan Referrals: NONE,PCP [Non-Partnered Physician] -
[2017-03-27] MEDS ORDERED: Artificial Tears SOLN 15 ML BOTTLE BOTH EYES PRN (14:53)
[2017-03-27] MEDS: *HR* Heparin 5,000 UNIT/ML VIAL SQ SCH ×2 (17:49→20:16)
[2017-03-27 18:46] LABS: Magnesium 1.6 mg/dL (1.6-2.6); Potassium 3.4 mEq/L (3.5-5.1)
[2017-03-27] MEDS: Mirtazapine 15 MG TABLET PO SCH (20:16)
[2017-03-28] MEDS: Insulin LISPRO 300 UNITS/3 ML VIAL SQ SCH ×5 (00:43→20:42)
[2017-03-28 03:36] LABS: Basophils % 0.4 %; Hemoglobin 8.7 g/dL (12.9-16.9); Red Cell Distribution Width 15.7 % (11.5-14.5); Segmented Neutrophils % 68.8 %
[2017-03-28 03:38] LABS: Eosinophils # 0.3 K/mcL (0.0-0.6); Eosinophils % 5.3 %; Hematocrit 25.4 % (37.5-50.1); Immature Granulocytes % 0.6 % (0-4); Immature Platelets 3.1 % (1.1-6.1); Lymphocytes # 0.8 K/mcL (0.6-4.6); Lymphocytes % 15.8 %; Mean Corpuscular HGB Conc 34.3 g/dL (31.6-35.5); Mean Corpuscular Hemoglobin 29.2 pg (28.0-33.3); Mean Corpuscular Volume 85.2 fL (83.0-100.0); Mean Platelet Volume 10.1 fL (9.4-12.4); Monocytes # 0.5 K/mcL (0.0-1.3); Monocytes % 9.1 %; Neutrophils # 3.4 K/mcL (1.6-8.9); Red Blood Count 2.98 M/mcL (4.19-5.50)
[2017-03-28 03:51] LABS: Calcium 7.9 mg/dL (8.6-10.3); Platelet Count 96 K/mcL (140-400); Potassium 4.2 mEq/L (3.5-5.1)
[2017-03-28 04:36] LABS: Magnesium 1.7 mg/dL (1.6-2.6); Phosphorous 2.9 mg/dL (2.7-4.5)
[2017-03-28] MEDS: *HR* Heparin 5,000 UNIT/ML VIAL SQ SCH ×3 (06:04→20:41)
[2017-03-28] MEDS: amLODIPine 5 MG TABLET PO SCH ×2 (07:22→20:42)
[2017-03-28] MEDS: (Cyclosporine [Restasis] 1 DROP) OP SCH (07:22)
--- NOTE | 2017-03-28 09:42 | Internal Med Progress Note ---
Date of Encounter: 03/28/17 Time of Encounter: 13:45 - Assessment and plan (1) Septic shock Current Visit: Yes Status: Acute Assessment and plan: Shock resolved. Sepsis due to UTI. Complete antibiotic course with Levaquin. No organism has been identified. Urine culture initially positive for Anu. Likely contaminant. (2) Pqajk-pg-anhvrck kidney injury Current Visit: Yes Status: Acute Assessment and plan: Renal function continues to improve. Trending towards baseline. Patient continues to have good urine output. Most likely will not need dialysis at this time. Nephrology following. Qualifiers: Acute renal failure type: unspecified Chronic kidney disease stage: stage 3 (moderate) Qualified Code(s): N17.9 - Acute kidney failure, unspecified; N18.3 - Chronic kidney disease, stage 3 (moderate); N18.3 - Chronic kidney disease, stage 3 (moderate) (3) Anemia in chronic kidney disease (CKD) Current Visit: Yes Status: Chronic Assessment and plan: Hemoglobin improved posttransfusion and has remained stable. Continue to monitor Qualifiers: Chronic kidney disease stage: stage 3 (moderate) Qualified Code(s): N18.3 - Chronic kidney disease, stage 3 (moderate); D63.1 - Anemia in chronic kidney disease; D63.1 - Anemia in chronic kidney disease (4) Diabetes Current Visit: Yes Status: Chronic Assessment and plan: Blood sugars are well controlled. No new episodes of hypoglycemia. Long- acting insulin has been stopped. Continue sliding scale coverage. Qualifiers: Diabetes mellitus type: type 2 Diabetes mellitus complication status: with hyperglycemia Diabetes mellitus [facility] insulin use: with [facility] use Qualified Code(s): E11.65 - Type 2 diabetes mellitus with hyperglycemia; Z79.4 - [facility] (current) use of insulin; Z79.4 - [facility] (current) use of insulin ; Z79.4 - [facility] (current) use of insulin; Z79.4 - [facility] (current) use of insulin (5) DVT prophylaxis Current Visit: Yes Status: Acute Assessment and plan: On subcutaneous heparin (6) HTN (hypertension) Current Visit: Yes Status: Chronic Assessment and plan: Blood pressure remains slightly elevated. We will adjust antihypertensive regimen. Continue to monitor blood pressure. Qualifiers: Hypertension type: renovascular hypertension Qualified Code(s): I15.0 - Renovascular hypertension (7) Hypoglycemia Current Visit: Yes Status: Resolved (8) Hypothermia Current Visit: Yes Status: Resolved Qualifiers: Encounter type: initial encounter Qualified Code(s): T68.XXXA - Hypothermia , initial encounter - Subjective Interval history: Patient is awake and alert. Doing well overall. No new complaints at this time. No nausea or vomiting. Tolerating diet well. Having good urine output at this time - Constitutional Vitals: Temp Pulse Resp BP Pulse Ox 97.4 F L 75 15 175/96 96 03/28/17 06:59 03/28/17 06:59 03/28/17 06:59 03/28/17 06:59 03/28/17 06:59 General appearance: Present: A&O X 1, no acute distress, answers questions appropriately - Neck Neck exam general surgery: Present: supple, trachea midline. Absent: lymphadenopathy - Respiratory Respiratory exam: Present: CTAB. Absent: accessory muscle use, rales, rhonchi, wheezes - Cardiovascular Cardiovascular exam: Present: RRR, +S1, +S2. Absent: diastolic murmur, gallop, rubs, systolic murmur - GI/Abdominal GI/Abdominal exam: Present: normal bowel sounds, soft, no peritoneal signs. Absent: distended, tenderness - Extremities Exam Extremities exam: Present: warm, radial pulses palpable and symmetrical. Absent : calf tenderness, cyanotic, pedal edema Internal Medicine: Result - Labs CBC & Chem 7: 03/28/17 03:20 03/29/17 06:50 Labs: Short CBC 03/28/17 Range/Units 03:20 WBC 5.0 (4.3-11.1) K/mcL Hgb 8.7 L (12.9-16.9) g/dL Hct 25.4 L (37.5-50.1) % Plt Count 96 L (140-400) K/mcL Neutrophils # 3.4 (1.6-8.9) K/mcL BMP 03/27/17 03/28/17 18:08 03:20 Sodium 133 L Potassium 3.4 L D 4.2 Chloride 108 H Carbon Dioxide 21 L BUN 25 H Creatinine 3.29 H Glucose 307 H Calcium 7.9 L - ABG Interpretation ABG results: ABG ABG pH 7.31 pH Units (7.32-7.45) L 03/23/17 14:10 ABG pCO2 35 mmHg (35-45) 03/23/17 14:10 ABG pO2 86 mmHg (85-104) 03/23/17 14:10 ABG O2 Saturation 96 % (95-98) 03/23/17 14:10 PT/INR, D-dimer PT 10.6 Seconds (9.4-12.1) 03/23/17 00:58 - VTE Documentation of Mechanical Device: Intermittent pneumatic compression device Consult Discharge Plan - Plan Referrals: Chi Loyd DO [Non-Partnered Physician] - (in 2-3 weeks) NONE,PCP [Non-Partnered Physician] - (in 1 week) Nomi Weathers MD [Partnered Physician] - (in 2-3 weeks) Prescriptions: hydrALAZINE [HydrALAZINE] 25 mg PO Q8HR #90 tablet
--- NOTE | 2017-03-28 09:57 | Nephrology Progress Note ---
Date of Encounter: 03/28/17 Time of Encounter: 09:55 - Assessment and Plan (1) Acute kidney failure, unspecified Current Visit: Yes Status: Acute The patient has acute kidney injury in the setting of urinary retention and urinary tract infection. The patient's renal function continues to improve with conservative therapy. He does not require dialysis. I am going to have the temperature dialysis catheter removed. I am going to make some changes to his antihypertensive regimen for better blood pressure control. Qualifiers: Acute renal failure type: unspecified Qualified Code(s): N17.9 - Acute kidney failure, unspecified (2) Bladder wall thickening Current Visit: No Status: Acute Subjective Principal diagnosis: AMS, sepsis Interval history: Patient denies any new complaints. His renal function continues to improve. Spears catheter is draining clear yellow urine. Urine output is excellent. Blood pressure remains a bit high. Objective - Vital Signs Vital signs: Vital Signs Temp Pulse Resp BP Pulse Ox 03/28/17 06:59 97.4 F L 75 15 175/96 96 03/28/17 03:57 97.4 F L 70 16 154/94 95 03/27/17 23:53 97.5 F L 70 17 150/88 96 03/27/17 19:25 97.6 F 69 16 140/84 98 03/27/17 18:15 80 16 97 03/27/17 16:50 80 03/27/17 16:04 97.5 F L 75 17 148/77 96 03/27/17 15:00 70 18 96 03/27/17 12:29 74 16 97 03/27/17 11:10 97.6 F 67 18 136/86 95 03/27/17 10:20 65 16 93 Intake and Output 03/27/17 03/28/17 03/28/17 23:59 07:59 15:59 Intake Total 420 / 420 480 / 480 Output Total 1275 / 1275 600 / 600 Balance -855 / -855 -120 / -120 Intake: Oral 420 / 420 480 / 480 Output: Urine 550 / 550 600 / 600 Catheter 725 / 725 Other: Meal Dinner Percent of Meal Consumed 25% Stool Size Small Stool Consistency soft Stool Color Brown Weight 58.8 kg Blood Glucose* 235 315 Patient Weight 03/28/17 23:59 Weight 58.8 kg - General Appearance Exam: Patient is alert and oriented. He is in no acute distress. Blood pressure 175/ 96. Lungs diminished breath sounds otherwise clear. Heart regular rate and rhythm. Abdomen was benign. There is minimal lower extremity swelling. There is a temporary dialysis catheter in the right internal jugular vein. - Lab 03/28/17 03:20 03/28/17 03:20 Most recent lab results ABG pH 7.31 pH Units (7.32-7.45) L 03/23/17 14:10 ABG pCO2 35 mmHg (35-45) 03/23/17 14:10 ABG pO2 86 mmHg (85-104) 03/23/17 14:10 ABG HCO3 18 mEq/L (21-27) L 03/23/17 14:10 ABG O2 Saturation 96 % (95-98) 03/23/17 14:10 Calcium 7.9 mg/dL (8.6-10.3) L 03/28/17 03:20 Phosphorus 2.9 mg/dL (2.7-4.5) 03/28/17 03:20 Magnesium 1.7 mg/dL (1.6-2.6) 03/28/17 03:20 - VTE Documentation of Mechanical Device: Intermittent pneumatic compression device Consult Discharge Plan - Plan Referrals: NONE,PCP [Non-Partnered Physician] -
[2017-03-28] MEDS: Levofloxacin 500 MG/100 ML 500 MG/100 ML BAG IVPB SCH (10:18)
[2017-03-28] MEDS: Mirtazapine 15 MG TABLET PO SCH (20:43)
[2017-03-29] MEDS: Insulin LISPRO 300 UNITS/3 ML VIAL SQ SCH ×3 (00:30→07:50)
[2017-03-29] MEDS: *HR* Heparin 5,000 UNIT/ML VIAL SQ SCH (06:47)
[2017-03-29 07:18] LABS: Albumin/Globulin Ratio 1.5 (1.1-2.2); Bilirubin,Total 0.3 mg/dL (0.3-1.0); Calcium 8.2 mg/dL (8.6-10.3); Potassium 3.9 mEq/L (3.5-5.1)
[2017-03-29] MEDS: amLODIPine 5 MG TABLET PO SCH (07:51)
--- NOTE | 2017-03-29 10:01 | Nephrology Progress Note ---
Date of Encounter: 03/29/17 Time of Encounter: 09:40 - Assessment and Plan (1) KARI (acute kidney injury) Current Visit: Yes Status: Acute KARI in setting of sepsis, superimposed on CKD in setting of DM, HTN. Renal fct improving, creat 3.20. Documented urine utput 2825 cc. Baseline creat 1.4-2.0. Will continue to monitor, avoid nephrotoxins, I&O's. Subjective Principal diagnosis: AMS, sepsis Interval history: Awake, appropriate conversation. States feels better, eating and drinking well per patient. Objective - Vital Signs Vital signs: Vital Signs Temp Pulse Resp BP Pulse Ox 03/29/17 07:16 97.7 F 66 18 138/77 03/29/17 05:11 97.8 F 67 18 136/86 100 03/29/17 04:45 100 03/28/17 23:30 98.1 F 67 19 143/86 100 03/28/17 20:30 68 03/28/17 18:55 98.0 F 77 18 142/88 100 03/28/17 17:02 97.4 F L 71 16 159/89 99 03/28/17 12:15 76 03/28/17 11:18 97.5 F L 77 16 153/91 97 Intake and Output 03/28/17 03/29/17 03/29/17 23:59 07:59 15:59 Intake Total 1080 / 1080 0 / 0 240 / 240 Output Total 1150 / 1150 1000 / 1000 Balance -70 / -70 -1000 / -1000 240 / 240 Intake: Oral 1080 / 1080 0 / 0 240 / 240 Output: Urine 300 / 300 Catheter 850 / 850 1000 / 1000 Other: Meal Dinner Breakfast Percent of Meal Consumed 0% 25% Stool Size Copious Stool Consistency soft Stool Characteristics Normal for Patient Stool Color Brown Green Weight 57.7 kg Blood Glucose* 81 93 Patient Weight 03/29/17 23:59 Weight 57.7 kg - General Appearance General appearance: Present: chronically ill, frail EENT: Present: mucous membranes moist Neck: Present: no JVD Respiratory: Present: clear Cardiology: Present: no edema, regular rate, regular rhythm Gastrointestinal: Present: normoactive bowel sounds, no tenderness Integumentary: Present: warm and dry Psychiatric: Present: mood/affect appropriate, cooperative - Lab 03/28/17 03:20 03/29/17 06:50 Most recent lab results ABG pH 7.31 pH Units (7.32-7.45) L 03/23/17 14:10 ABG pCO2 35 mmHg (35-45) 03/23/17 14:10 ABG pO2 86 mmHg (85-104) 03/23/17 14:10 ABG HCO3 18 mEq/L (21-27) L 03/23/17 14:10 ABG O2 Saturation 96 % (95-98) 03/23/17 14:10 Calcium 8.2 mg/dL (8.6-10.3) L 03/29/17 06:50 Phosphorus 2.9 mg/dL (2.7-4.5) 03/28/17 03:20 Magnesium 1.7 mg/dL (1.6-2.6) 03/28/17 03:20 - VTE Documentation of Mechanical Device: Intermittent pneumatic compression device Consult Discharge Plan - Plan Referrals: NONE,PCP [Non-Partnered Physician] -
[2017-03-29] MEDS ORDERED: Insulin LISPRO 300 UNITS/3 ML VIAL SQ SCH (11:30)
--- NOTE | 2017-03-29 11:46 | Discharge Summary ---
Date of Encounter: 03/29/17 Time of Encounter: 11:41 - Discharge Diagnosis (1) Septic shock Priority: Primary Status: Acute (2) [id number] kidney injury Priority: Secondary Status: Acute Qualifiers: Acute renal failure type: unspecified Chronic kidney disease stage: stage 3 (moderate) Qualified Code(s): N17.9 - Acute kidney failure, unspecified; N18.3 - Chronic kidney disease, stage 3 (moderate); N18.3 - Chronic kidney disease, stage 3 (moderate) (3) Anemia in chronic kidney disease (CKD) Priority: Secondary Status: Chronic Qualifiers: Chronic kidney disease stage: stage 3 (moderate) Qualified Code(s): N18.3 - Chronic kidney disease, stage 3 (moderate); D63.1 - Anemia in chronic kidney disease; D63.1 - Anemia in chronic kidney disease (4) Diabetes Priority: Secondary Status: Chronic Qualifiers: Diabetes mellitus type: type 2 Diabetes mellitus complication status: with hyperglycemia Diabetes mellitus keno terminal operator insulin use: with custodial use Qualified Code(s): E11.65 - Type 2 diabetes mellitus with hyperglycemia; Z79.4 - snf (current) use of insulin; Z79.4 - snf (current) use of insulin ; Z79.4 - keno terminal operator (current) use of insulin; Z79.4 - keno terminal operator (current) use of insulin (5) DVT prophylaxis Priority: Secondary Status: Acute (6) HTN (hypertension) Priority: Secondary Status: Chronic Qualifiers: Hypertension type: renovascular hypertension Qualified Code(s): I15.0 - Renovascular hypertension (7) Hypoglycemia Priority: Secondary Status: Resolved (8) Hypothermia Priority: Secondary Status: Resolved Qualifiers: Encounter type: initial encounter Qualified Code(s): T68.XXXA - Hypothermia , initial encounter - Discharge Medications Prescriptions: hydrALAZINE [HydrALAZINE] 25 mg PO Q8HR #90 tablet Home Medications: Cyclosporine [Restasis] 1 drop OP BID 11/28/16 [History] Insulin LISPRO [HumaLOG] 2 - 10 units SQ TIDWM PRN 11/28/16 [History] Loratadine [Allergy Relief] 10 mg PO DAILY PRN 11/28/16 [History] Mirtazapine [Remeron] 15 mg PO HS 11/28/16 [History] Omeprazole [PriLOSEC] 40 mg PO BIDAC capsule. 12/03/16 [Rx] Sucralfate [Carafate] 1 gm PO TID #1 bottle 12/03/16 [Rx] amLODIPine [Norvasc] 10 mg PO DAILY #0 tablet 12/03/16 [Rx] DULoxetine [Cymbalta] 30 mg PO DAILY 02/15/17 [History] hydrALAZINE [HydrALAZINE] 25 mg PO Q8HR #90 tablet 03/29/17 [Rx] levoFLOXacin [Levaquin] 750 mg PO Q48H #3 tablet 03/29/17 [Rx] Allergies/Adverse Reactions: 3 Allergy/AdvReac Type Severity Reaction Status Date / Time aspirin Allergy Rash Verified 02/15/17 02:44 pseudoephedrine Allergy Rash Verified 02/15/17 02:44 [From [facility]] Date of admission: 03/23/17 04:43 Primary care physician: Cecil Carter MD Consults: 03/23/17 05:34 Consult to Critical Care [CONS] Routine Consulting Provider: [facility]m [facility] [place] Reason for Consult: Hypotension Call Completed: Yes Consult to Nephrology [CONS] Routine Consulting Provider: Kid[facility] Reason for Consult: Acute renal failure Call Completed: Yes 03/23/17 05:36 Consult to Urology [CONS] Routine Consulting Provider: Urology [place] Reason for Consult: Acute renal failure; place olivares catheter. ER staff failed to place Call Completed: Yes 03/23/17 05:55 Consult to Sheeter Operator [CONS] Routine Reason for SW Consult: admitted from [place] 03/28/17 12:52 Consult to Physical Therapy [CONS] Routine Comment: Evaluate, develop and implement POC Reason for Consult: discharge planning 03/28/17 12:53 Consult to Occupational Therapy [CONS] Routine Comment: Evaluate, develop and implement POC Reason for Consult: discharge planning Discharging clinician: Katarzyna Minor Anticipated date of discharge: 03/29/17 - Patient Status Disposition: Transfer SNF Condition: Good Functional capacity at discharge: bed bound Overall status at discharge: patient is progressing back to baseline - Discharge Instructions Follow Up With: NONE,PCP [Non-Partnered Physician] - (in 1 week) Chi Loyd DO [Non-Partnered Physician] - (in 2-3 weeks) Nomi Weathers MD [Partnered Physician] - (in 2-3 weeks) - Diet and Activity Activity: as per physical therapy Diet: diabetic diet, low fat, low cholesterol, low salt diet Hospital course: Mr. Neal is a 61 year old male patient who resides at skilled nursing and has a history of CVA, dementia, diabetes, hypertension and hyperlipidemia and cirrhosis presented to the ER with altered mental status. He was found unresponsive at the nursing facility. He was hyperglycemic initially and was given 4 units of insulin but became hypoglycemic en route. He was diagnosed with septic shock and admitted to the ICU. He was initially on pressors with Levophed. He was started on broad-spectrum IV antibiotic therapy. Urology was consulted to place a Olivares. Blood cultures were drawn. Patient was also hypothermic and beta hugger was placed to help with his symptoms. He was found to be having acute kidney injury with a creatinine of 8.8. His usual baseline creatinine is between 2 and 3. Urology placed a Olivares catheter. With aggressive medical management, patient's condition has improved. His septic shock resolved. His renal function has improved and is now close to his baseline. Urology recommended leaving the Olivares catheter in. His blood and urine cultures were negative for any bacteria. He has been continued on treatment with levofloxacin empirically. Patient's condition has continued to improve and is now back to his baseline. Patient has had very brittle blood sugars with episodes of hyperglycemia and hypoglycemia. As such he is no longer on long-acting insulin. We recommend that he be on short-acting insulin that she can take with his meals. He should not receive any insulin products if he is not eating. Patient does have chronic anemia with a hemoglobin of 9.4. He did have a drop in his hemoglobin to 6.4. He received 1 unit PRBC and his hemoglobin levels have been stable at around 8.8 since then. No clear etiology but patient does have chronic kidney disease and chronic anemia. His stool for occult blood was negative. Presently, patient is back to his baseline. He is stable to be discharged back to skilled rehabilitation. He will complete antibiotic treatment with levofloxacin. He will follow up with urology for further management of his Olivares catheter. - Time Spent with Patient Total time spent providing and/or coordinating discharge services: Greater than 30 minutes (40 min) - Constitutional Vitals: Temp Pulse Resp BP Pulse Ox 97.7 F 66 18 138/77 100 03/29/17 07:16 03/29/17 07:16 03/29/17 07:16 03/29/17 07:16 03/29/17 05:11 General appearance: Present: A&O X 1, no acute distress, answers questions appropriately - Neck Neck exam general surgery: Present: supple, trachea midline. Absent: lymphadenopathy - Respiratory Respiratory exam: Present: CTAB. Absent: accessory muscle use, rales, rhonchi, wheezes - Cardiovascular Cardiovascular exam: Present: RRR, +S1, +S2. Absent: diastolic murmur, gallop, rubs, systolic murmur - GI/Abdominal GI/Abdominal exam: Present: normal bowel sounds, soft, no peritoneal signs. Absent: distended, tenderness - Extremities Exam Extremities exam: Present: warm, radial pulses palpable and symmetrical. Absent : calf tenderness, cyanotic, pedal edema - VTE Documentation of Mechanical Device: Intermittent pneumatic compression device
--- NOTE | 2017-03-29 11:49 | Physician Discharge Referral ---
ExtendedCare Referral Info Transfer To: [facility] Provider in Charge after Transfer: PCP Institutional Level of Care: Skilled - Diagnosis (1) Septic shock Priority: Primary Status: Acute (2) [id number] kidney injury Priority: Secondary Status: Acute (3) Anemia in chronic kidney disease (CKD) Priority: Secondary Status: Acute (4) Diabetes Priority: Secondary Status: Chronic (5) DVT prophylaxis Priority: Secondary Status: Acute (6) HTN (hypertension) Priority: Secondary Status: Chronic (7) Hypoglycemia Priority: Secondary Status: Resolved (8) Hypothermia Priority: Secondary Status: Resolved Prognosis: Fair Aware of Diagnosis: Patient Aware of Prognosis: Patient - Transfer Medications Prescriptions: hydrALAZINE [HydrALAZINE] 25 mg PO Q8HR #90 tablet Home Medications: Cyclosporine [Restasis] 1 drop OP BID 11/28/16 [History] Insulin LISPRO [HumaLOG] 2 - 10 units SQ TIDWM PRN 11/28/16 [History] Loratadine [Allergy Relief] 10 mg PO DAILY PRN 11/28/16 [History] Mirtazapine [Remeron] 15 mg PO HS 11/28/16 [History] Omeprazole [PriLOSEC] 40 mg PO BIDAC capsule. 12/03/16 [Rx] Sucralfate [Carafate] 1 gm PO TID #1 bottle 12/03/16 [Rx] amLODIPine [Norvasc] 10 mg PO DAILY #0 tablet 12/03/16 [Rx] DULoxetine [Cymbalta] 30 mg PO DAILY 02/15/17 [History] hydrALAZINE [HydrALAZINE] 25 mg PO Q8HR #90 tablet 03/29/17 [Rx] levoFLOXacin [Levaquin] 750 mg PO Q48H #3 tablet 03/29/17 [Rx] Allergies/Adverse Reactions: 3 Allergy/AdvReac Type Severity Reaction Status Date / Time aspirin Allergy Rash Verified 02/15/17 02:44 pseudoephedrine Allergy Rash Verified 02/15/17 02:44 [From Sudafed] - Respiratory Orders Smoking Cessation: Smoking cessation has been advised. For more information, call the [place] Tobacco Quit Line at 8-063-GMHH-NOW. - Lab Orders Lab Orders: Other (include drug levels w/frequency) (BMP in 1 week) - Ancillary Orders May consult with Dentist, Vp Platforms, Speeder Tender PRN - Advance Directives Code Status: Full Code - Mobility Orders Other (Per PT eval) - Rehabiliation Orders Rehab Potential: Fair Rehab Orders: Evaluation for Physical Therapy, Evaluation for Occupational Therapy - Diet Orders No Concentrated Sweets (Diabetic), Cardiac CERTIFICATION: I certify that the transfer of the above named patient to an Extended Care Facility is necessary for the continuing treatment of the diagnosis listed. The above information is true and accurate reflection of patient's current condition. Confidential - Redisclosure prohibited without a patient's written consent.
[2017-03-29 11:52] VITALS: BP 155/99
[2017-03-30] MEDS ORDERED: levoFLOXacin 750 MG TABLET PO SCH (09:00)
== END 2017-03-29 13:50 | DRG 871 ==
LOC: EMEROO 23:51 → SUATTDRO 03-23 04:43 → ICNU 03-23 04:43 → 2NNU 03-25 19:04
PROVIDERS: ADMIT Pediatrics; ATTEND Internal Medicine

== ENCOUNTER 2017-04-14 09:58 | Inpatient (IN) ==
[~2017-04-14 09:58] MED LIST: *HR* Atropine Sulfate 1 MG/10 ML SYRINGE IV ONE; *HR* Dextrose 50 % in Water (Vial) 50 ML VIAL IVC ONE; *HR* Midazolam HCl 5 MG/5 ML VIAL IVP ONE
[2017-04-14 10:14] LABS: ABG Base Excess -15 mEq/L (-2 to 3); ABG HCO3 14 mEq/L (21-27); ABG Oxygen Saturation 81 % (95-98); ABG PCO2 43 mmHg (35-45); ABG PH 7.11 pH Units (7.32-7.45); ABG PO2 60 mmHg (85-104); ABG TCO2 15 mEq/L (20-26)
[2017-04-14] MEDS ORDERED: *HR* Ketamine 500 MG/5 ML MDV IVP ONE (10:22)
[2017-04-14 10:25] LABS: Basophils % 0.2 %; Eosinophils % 0.2 %; Hematocrit 27.6 % (37.5-50.1); Immature Granulocytes % 0.5 % (0-4); Lymphocytes # 0.4 K/mcL (0.6-4.6); Lymphocytes % 5.5 %; Mean Corpuscular HGB Conc 32.6 g/dL (31.6-35.5); Mean Corpuscular Hemoglobin 28.9 pg (28.0-33.3); Mean Corpuscular Volume 88.7 fL (83.0-100.0); Mean Platelet Volume 10.3 fL (9.4-12.4); Monocytes # 0.2 K/mcL (0.0-1.3); Monocytes % 3.5 %; Neutrophils # 5.7 K/mcL (1.6-8.9); Platelet Count 163 K/mcL (140-400); Red Blood Count 3.11 M/mcL (4.19-5.50); Red Cell Distribution Width 15.9 % (11.5-14.5); Segmented Neutrophils % 90.1 %
[2017-04-14 10:39] LABS: Prothrombin Time 10.5 Seconds (9.4-12.1)
[2017-04-14 10:44] LABS: Bilirubin,Urine Negative (Negative); Blood,Urine Moderate (Negative); Clarity,Urine Turbid (Clear); Color,Urine Dark Yellow (Yellow); Glucose,Urine (UA) Normal (Normal); Ketones,Urine Trace mg/dL (Negative); Leukocyte Esterase,Urine Large (Negative); Nitrite,Urine Negative (Negative); Protein,Urine >=300 mg/dL (Neg-Trace); Specific Gravity,Urine 1.021 (1.010-1.025); Urobilinogen,Urine Normal (Normal)
[2017-04-14 10:47] LABS: Bacteria,Urine Many per hpf (None-Few); Squamous Epithelial Cell,Urine Many per lpf (None-Few); WBC,Urine TNTC per hpf (0-3)
[2017-04-14] MEDS: 0.9 % Sodium Chloride 1,000 ML IVC SCH ×2 (10:53→10:54)
[2017-04-14 10:56] LABS: RBC,Urine TNTC per hpf (0-3)
[2017-04-14 10:58] LABS: Albumin 3.2 g/dL (3.5-5.7); Albumin/Globulin Ratio 1.2 (1.1-2.2); Bilirubin,Direct 0.1 mg/dL (0.0-0.2); Bilirubin,Indirect 0.2 mg/dL (0.0-1.2); Bilirubin,Total 0.3 mg/dL (0.3-1.0); Calcium 9.1 mg/dL (8.6-10.3); Globulin 2.6 g/dL (2.4-3.5); Magnesium 2.1 mg/dL (1.6-2.6); Potassium 4.6 mEq/L (3.5-5.1); Total Protein 5.8 g/dL (6.4-8.9)
[2017-04-14] MEDS ORDERED: 0.9 % Sodium Chloride 1,000 ML IVC ONE ×2 (11:19→13:49)
[2017-04-14] MEDS ORDERED: *HR* Dextrose 50 % in Water (Syg) 50 ML SYRINGE IVP ONE (11:20)
[2017-04-14] MEDS ORDERED: Levofloxacin 750 MG/150 ML 750 MG/150 ML BAG IVPB ONE (11:33)
--- NOTE | 2017-04-14 11:58 | Emergency Department Note ---
START Narrative - START START: I examined this patient and my medical decision-making was reviewed with the Resident Physician. I agree with the documented findings, disposition and treatment plan as described except to the extent set forth below. 61 yo M here for AMS from care home. unsure exactly when it started. was told by ems maybe a day or so. he has multiple med problems. today, he is somnolent, lethargic. Sats 88% on RA with good wave form and only 90% on NRB mask. ABG showed pH of 7.1 pt was intubated after IV access. no complications. CXR concerning for possible left perihilar infiltrate. ct brain neg pt's HR has been low in the 40s. Hypotensive, septic. likely from Urine as it appeared with pus in it. chronic indwelling olivares. Central line was placed in the right internal jugular without any competitions. We have started the patient IV vancomycin, Zosyn, Levaquin Patient will be started on the Levophed as well. He has received almost 2 L of fluid thus far. Consult with the cook chef. He did come down to the ER to see the patient. He accepted the patient to their service. Overall, patient appears to be septic hypotensive and septic shock from urinary tract infection. Pressors, fluids, antibiotics. We will add on a random cortisol level. Critical care time was 50 minutes spent in medical management of septic shock.
[2017-04-14] MEDS ORDERED: Vancomycin 1 EACH in EMPTY BAG 1 EACH IVPB SCH (12:00)
[2017-04-14] MEDS: Cefepime HCl 1,000 MG in 0.9 % Sodium Chloride Mini Bag 100 ML IVPB SCH (12:04)
[2017-04-14] MEDS: Norepinephrine 4 MG in D5% in Water 250 ML IVC SCH ×2 (12:31→20:00)
[2017-04-14] MEDS ORDERED: Propofol 500 MG/50 ML INFUS..BTL ONE (12:41)
[2017-04-14] MEDS: Propofol 500 MG/50 ML INFUS..BTL IVC SCH ×2 (13:14→23:00)
--- NOTE | 2017-04-14 14:04 | Emergency Department Note ---
Disposition Clinical Impression: Septic shock, Respiratory distress UTI (urinary tract infection) Qualifiers: Urinary tract infection type: site unspecified Hematuria presence: with hematuria Qualified Code(s): N39.0 - Urinary tract infection, site not specified ; R31.9 - Hematuria, unspecified; R31.9 - Hematuria, unspecified Disposition: Admitted As Inpatient Condition: Fair Time of Disposition: 14:12 General Adult HPI - General Chief complaint: ED Altered Mental Status Stated complaint: AMS Time Seen by Provider: 04/14/17 10:02 Source: EMS Limitations: altered mental status Nursing Notes Reviewed: Yes Vital Signs Reviewed: Yes - History of Present Illness HPI Narrative: 61-year-old male currently at [facility] after being discharged from the hospital for urosepsis and hypothymia presenting to the emergency department with decreased mental state with response only to pain. Patient has had decrease in blood pressure and alertness the past 2 days. Today employees at [facility] stated he only responded to painful stimuli and therefore they called EMS. No other significant past medical history unable to be obtained due to patient's critical condition. Pain Scale: 0 - Related Data Home Medications Medication Instructions Recorded Confirmed Cyclosporine [Restasis] 1 drop BOTH EYES BID 11/28/16 04/14/17 Insulin LISPRO [HumaLOG] 0 unit SQ AD 11/28/16 04/14/17 Loratadine [Allergy Relief] 10 mg PO DAILY PRN 11/28/16 04/14/17 DULoxetine [Cymbalta] 30 mg PO DAILY 02/15/17 04/14/17 Amlodipine Besylate 10 mg PO DAILY 04/14/17 04/14/17 Amoxicillin/Clavulanate [Augmentin] 500 mg PO BID 04/14/17 Erythromycin OPTH Oint 1 appl OP HS 04/14/17 04/14/17 Glucagon,Human Recombinant 1 mg IM Q30MIN PRN 04/14/17 04/14/17 [Glucagen] Mirtazapine [Remeron] 30 mg PO HS 04/14/17 04/14/17 Omeprazole [PriLOSEC] 40 mg PO BID 04/14/17 04/14/17 Polyvinyl Alcohol [Artificial 1 drop BOTH EYES TID 04/14/17 04/14/17 Tears] Previous Rx's Medication Instructions Recorded Sucralfate [Carafate] 1 gm PO TID #1 bottle 12/03/16 hydrALAZINE [HydrALAZINE] 25 mg PO Q8HR #90 tablet 03/29/17 Allergies Allergy/AdvReac Type Severity Reaction Status Date / Time aspirin Allergy Rash Verified 02/15/17 02:44 pseudoephedrine Allergy Rash Verified 02/15/17 02:44 [From Sudafed] morphine AdvReac See Verified 04/14/17 11:30 Comments Limitations: ROS unobtainable due to patients medical condition Past Medical History - Past Medical History Source: unable to obtain Medical history: Reports: CVA, dementia, diabetes, hyperlipidemia, hypertension , renal disease, other Surgical history: Reports: hip replacement, orthopedic, other, other Psychiatric history: Reports: depression, prior suicide attempt - Social History Smoking Status: Never smoker Smokeless Tobacco Status: No Alcohol use: Reports: none Drug use: Reports: none Physical Exam - General Limitations: altered mental status General appearance: lethargic - Head Head exam: atraumatic, normocephalic, normal inspection - Eye Eye exam: Present: PERRL. Absent: scleral icterus, conjunctival injection - ENT ENT exam: mucous membranes dry - Neck Neck exam: Present: trachea midline - Chest Chest inspection: Present: normal inspection, symmetric chest wall rise. Absent : tenderness, rash - Respiratory Respiratory exam: Present: normal lung sounds bilaterally. Absent: respiratory distress, wheezes - Cardiovascular Cardiovascular exam: Present: normal rhythm, bradycardia - Abdominal Exam Abdominal exam: Present: soft, Non-Tender. Absent: distention, guarding, rebound - Extremities Exam Extremities exam: Present: other (Cachectic) - Skin Skin exam: Present: dry Course Course Narrative: 61-year-old male presenting to the emergency department for altered mental status. Upon presentation patient only responsive to painful stimuli. Patient was hypotensive and bradycardic. Decision was made to intubate the patient. Patient was intubated and a central line was needed in the right internal jugular due to poor peripheral access and need for vasopressors. We will obtainin basic lab work and urinalysis. WHile obtaining urine it was shown to the grossly contaminated with pus. We also determined that the patient was hypothermic with a core temperature of 89 degrees. Bear hugger was placed on the patient. Started the patient on antibiotics at this time. We spoke with the hybrid powertrain development engineer on-call doctor Mayela who agrees to accept the patient in the ICU. After intubation atropine was needed due to patient's bradycardia in the low 40s. Patient otherwise has been stable. Patient maintains bradycardic and hypotensive in the emergency department. Vital Signs Temperature 89.9 F L 04/14/17 10:01 Pulse Rate 54 04/14/17 10:01 Respiratory Rate 16 04/14/17 10:01 Blood Pressure 78/42 04/14/17 10:01 O2 Sat by Pulse Oximetry 91 04/14/17 10:01 Temperature 92.9 F L 04/14/17 13:55 Pulse Rate 64 04/14/17 13:17 Respiratory Rate 20 04/14/17 13:55 Blood Pressure 105/59 04/14/17 13:55 O2 Sat by Pulse Oximetry 100 04/14/17 13:17 Oxygen Delivery Oxygen Delivery Ventilator Procedures - Central Line Placement Right IJ Central Line Inserted*: Yes Central Line Catheter Replacement*: Yes Central Line Insertion: emergent Procedural Pause: verify patient name and date of , timeout performed per policy, edwina and assess the site, assemble equipment and verify supplies, perform hand hygiene During the Procedure: clinician is wearing sterile gloves, cap, mask,& gown during insertion, sterile field and sterile technique are maintained, patient's face is covered with drape or mask and wearing a cap, everyone in room is wearing a mask Central Line Prep: Chlorhexidine scrub Prep the Procedure Site: apply chloraprep to the skin using a back and forth scrubbing motion, apply chloraprep for 30 seconds (upper body), 1-2 min ( femoral sites), allow prep to dry, drape the patient with a full body drape Ultrasound Used for Placement: Yes Central Line Lumen Inserted: triple Post Procedure: sutured in place, good blood return, all ports aspirated, flushed, capped, sterile dressing applied, guide wire removed and visualized, dressing is dated Post Procedure X-Ray: tip of catheter in good position, no pneumothorax seen Patient Tolerated Procedure: well, no complications Complications: none Name of Clinician Inserting Central Line: Galiatsatos - Intubation Time out performed: Yes sedative: Ketamine Mg Given: 100 paralytic: Succinylcholine Mg Given: 100 Laryngoscope: Jay ET Tube Size: 7.5 ET Tube Uncuffed: No Tube Secured Depth (cm): 23 Tube Secured Location: lips Tube Placement Confirmation: visualized tube passing through cords, equal breath sounds bilaterally, no breath sounds over epigastrium, confirmation by capnometry Patient Tolerated Procedure: well Intubation Complications: none Medical Decision Making - Lab Data Result diagrams: 04/14/17 10:18 04/14/17 10:18 Lab Results 04/14/17 04/14/17 04/14/17 Range/Units 10:08 10:18 10:18 WBC 6.3 (4.3-11.1) K/mcL RBC 3.11 L (4.19-5.50) M/mcL Hgb 9.0 L (12.9-16.9) g/dL Hct 27.6 L (37.5-50.1) % MCV 88.7 (83.0-100.0) fL MCH 28.9 (28.0-33.3) pg MCHC 32.6 (31.6-35.5) g/dL RDW 15.9 H (11.5-14.5) % Plt Count 163 (140-400) K/mcL MPV 10.3 (9.4-12.4) fL Immature Gran % 0.5 (0-4) % Seg Neutrophils % 90.1 % Lymphocytes % 5.5 % Monocytes % 3.5 % Eosinophils % 0.2 % Basophils % 0.2 % Neutrophils # 5.7 (1.6-8.9) K/mcL Lymphocytes # 0.4 L (0.6-4.6) K/mcL Monocytes # 0.2 (0.0-1.3) K/mcL Eosinophils # 0.0 (0.0-0.6) K/mcL Basophils # 0.0 (0.0-0.2) K/mcL PT (9.4-12.1) Seconds INR APTT (26.0-36.0) Seconds Sample Site R Radial ABG pH 7.11 L* (7.32-7.45) pH Units ABG pCO2 43 (35-45) mmHg ABG pO2 60 L (85-104) mmHg ABG HCO3 14 L (21-27) mEq/L ABG Total CO2 15 L (20-26) mEq/L ABG O2 Saturation 81 L (95-98) % ABG Base Excess -15 L (-2 to 3) mEq/L Twin Test Positive O2 Delivery Device NRB Sodium 130 L (136-145) mEq/L Potassium 4.6 (3.5-5.1) mEq/L Chloride 100 (98-107) mEq/L Carbon Dioxide 13 L (23-29) mEq/L BUN 91 H (8-23) mg/dL Creatinine 8.54 H (0.70-1.30) mg/dL Est GFR ( Amer) 8 L (> 60) Est GFR (Non-Af Amer) 6 L (> 60) BUN/Creatinine Ratio 11 (6-26) Glucose 65 L (70-105) mg/dL Calculated Osmolality 296 (280-300) Lactic Acid (0.5-2.2) mmol/L Calcium 9.1 (8.6-10.3) mg/dL Magnesium 2.1 (1.6-2.6) mg/dL Total Bilirubin 0.3 (0.3-1.0) mg/dL Direct Bilirubin 0.1 (0.0-0.2) mg/dL Indirect Bilirubin 0.2 (0.0-1.2) mg/dL AST 11 L (13-39) Units/L ALT 10 (7-52) Units/L Alkaline Phosphatase 122 H (34-104) Units/L Troponin I (< 0.04) ng/mL Serum Total Protein 5.8 L (6.4-8.9) g/dL Albumin 3.2 L (3.5-5.7) g/dL Globulin 2.6 (2.4-3.5) g/dL Albumin/Globulin Ratio 1.2 (1.1-2.2) Random Cortisol 27.7 mcg/dl Urine Color (Yellow) Urine Clarity (Clear) Urine pH (5.0-8.0) pH Units Ur Specific [place] (1.010-1.025) Urine Protein (Neg-Trace) mg/dL Urine Glucose (UA) (Normal) mg/dL Urine Ketones (Negative) mg/dL Urine Blood (Negative) Urine Nitrite (Negative) Urine Bilirubin (Negative) Urine Urobilinogen (Normal) mg/dL Ur Leukocyte Esterase (Negative) Urine Microscopic RBC (0-3) per hpf Urine Microscopic WBC (0-3) per hpf Ur Squamous Epith Cells (None-Few) per lpf Urine Bacteria (None-Few) per hpf Ur Culture Indicated? (NO) 04/14/17 04/14/17 04/14/17 Range/Units 10:18 10:25 10:25 WBC (4.3-11.1) K/mcL RBC (4.19-5.50) M/mcL Hgb (12.9-16.9) g/dL Hct (37.5-50.1) % MCV (83.0-100.0) fL MCH (28.0-33.3) pg MCHC (31.6-35.5) g/dL RDW (11.5-14.5) % Plt Count (140-400) K/mcL MPV (9.4-12.4) fL Immature Gran % (0-4) % Seg Neutrophils % % Lymphocytes % % Monocytes % % Eosinophils % % Basophils % % Neutrophils # (1.6-8.9) K/mcL Lymphocytes # (0.6-4.6) K/mcL Monocytes # (0.0-1.3) K/mcL Eosinophils # (0.0-0.6) K/mcL Basophils # (0.0-0.2) K/mcL PT 10.5 (9.4-12.1) Seconds INR 1.0 APTT 83.0 H (26.0-36.0) Seconds Sample Site ABG pH (7.32-7.45) pH Units ABG pCO2 (35-45) mmHg ABG pO2 (85-104) mmHg ABG HCO3 (21-27) mEq/L ABG Total CO2 (20-26) mEq/L ABG O2 Saturation (95-98) % ABG Base Excess (-2 to 3) mEq/L Twin Test O2 Delivery Device Sodium (136-145) mEq/L Potassium (3.5-5.1) mEq/L Chloride (98-107) mEq/L Carbon Dioxide (23-29) mEq/L BUN (8-23) mg/dL Creatinine (0.70-1.30) mg/dL Est GFR ( Amer) (> 60) Est GFR (Non-Af Amer) (> 60) BUN/Creatinine Ratio (6-26) Glucose (70-105) mg/dL Calculated Osmolality (280-300) Lactic Acid 0.8 (0.5-2.2) mmol/L Calcium (8.6-10.3) mg/dL Magnesium (1.6-2.6) mg/dL Total Bilirubin (0.3-1.0) mg/dL Direct Bilirubin (0.0-0.2) mg/dL Indirect Bilirubin (0.0-1.2) mg/dL AST (13-39) Units/L ALT (7-52) Units/L Alkaline Phosphatase (34-104) Units/L Troponin I < 0.03 (< 0.04) ng/mL Serum Total Protein (6.4-8.9) g/dL Albumin (3.5-5.7) g/dL Globulin (2.4-3.5) g/dL Albumin/Globulin Ratio (1.1-2.2) Random Cortisol mcg/dl Urine Color (Yellow) Urine Clarity (Clear) Urine pH (5.0-8.0) pH Units Ur Specific [place] (1.010-1.025) Urine Protein (Neg-Trace) mg/dL Urine Glucose (UA) (Normal) mg/dL Urine Ketones (Negative) mg/dL Urine Blood (Negative) Urine Nitrite (Negative) Urine Bilirubin (Negative) Urine Urobilinogen (Normal) mg/dL Ur Leukocyte Esterase (Negative) Urine Microscopic RBC (0-3) per hpf Urine Microscopic WBC (0-3) per hpf Ur Squamous Epith Cells (None-Few) per lpf Urine Bacteria (None-Few) per hpf Ur Culture Indicated? (NO) 04/14/17 Range/Units 10:30 WBC (4.3-11.1) K/mcL RBC (4.19-5.50) M/mcL Hgb (12.9-16.9) g/dL Hct (37.5-50.1) % MCV (83.0-100.0) fL MCH (28.0-33.3) pg MCHC (31.6-35.5) g/dL RDW (11.5-14.5) % Plt Count (140-400) K/mcL MPV (9.4-12.4) fL Immature Gran % (0-4) % Seg Neutrophils % % Lymphocytes % % Monocytes % % Eosinophils % % Basophils % % Neutrophils # (1.6-8.9) K/mcL Lymphocytes # (0.6-4.6) K/mcL Monocytes # (0.0-1.3) K/mcL Eosinophils # (0.0-0.6) K/mcL Basophils # (0.0-0.2) K/mcL PT (9.4-12.1) Seconds INR APTT (26.0-36.0) Seconds Sample Site ABG pH (7.32-7.45) pH Units ABG pCO2 (35-45) mmHg ABG pO2 (85-104) mmHg ABG HCO3 (21-27) mEq/L ABG Total CO2 (20-26) mEq/L ABG O2 Saturation (95-98) % ABG Base Excess (-2 to 3) mEq/L Twin Test O2 Delivery Device Sodium (136-145) mEq/L Potassium (3.5-5.1) mEq/L Chloride (98-107) mEq/L Carbon Dioxide (23-29) mEq/L BUN (8-23) mg/dL Creatinine (0.70-1.30) mg/dL Est GFR ( Amer) (> 60) Est GFR (Non-Af Amer) (> 60) BUN/Creatinine Ratio (6-26) Glucose (70-105) mg/dL Calculated Osmolality (280-300) Lactic Acid (0.5-2.2) mmol/L Calcium (8.6-10.3) mg/dL Magnesium (1.6-2.6) mg/dL Total Bilirubin (0.3-1.0) mg/dL Direct Bilirubin (0.0-0.2) mg/dL Indirect Bilirubin (0.0-1.2) mg/dL AST (13-39) Units/L ALT (7-52) Units/L Alkaline Phosphatase (34-104) Units/L Troponin I (< 0.04) ng/mL Serum Total Protein (6.4-8.9) g/dL Albumin (3.5-5.7) g/dL Globulin (2.4-3.5) g/dL Albumin/Globulin Ratio (1.1-2.2) Random Cortisol mcg/dl Urine Color Dark Yellow (Yellow) Urine Clarity Turbid A (Clear) Urine pH 8.0 (5.0-8.0) pH Units Ur Specific [place] 1.021 (1.010-1.025) Urine Protein >=300 H (Neg-Trace) mg/dL Urine Glucose (UA) Normal (Normal) mg/dL Urine Ketones Trace H (Negative) mg/dL Urine Blood Moderate H (Negative) Urine Nitrite Negative (Negative) Urine Bilirubin Negative (Negative) Urine Urobilinogen Normal (Normal) mg/dL Ur Leukocyte Esterase Large H (Negative) Urine Microscopic RBC TNTC H (0-3) per hpf Urine Microscopic WBC TNTC H (0-3) per hpf Ur Squamous Epith Cells Many H (None-Few) per lpf Urine Bacteria Many H (None-Few) per hpf Ur Culture Indicated? NO. (NO) - EKG Data EKG #1 EKG attestation: Yes I reviewed and interpreted this EKG. EKG results narrative: Sinus bradycardia first degree AV block. 55 bpm. Intraventricular conduction delay. IL interval 268, QRS 117, QTc 472. No signs of acute ST segment elevation or ischemia.
[2017-04-14 16:05] LABS: ABG Base Excess -17 mEq/L (-2 to 3); ABG HCO3 10 mEq/L (21-27); ABG Oxygen Saturation 89 % (95-98); ABG PCO2 29 mmHg (35-45); ABG PH 7.16 pH Units (7.32-7.45); ABG PO2 70 mmHg (85-104); ABG TCO2 11 mEq/L (20-26); Blood Gas Modality ASSIST CONTROL; Blood Gas PEEP 5 cm H2O; Blood Gas Respiration Rate 20; Blood Gas VT 500 cc
[2017-04-14] MEDS ORDERED: Ringers Solution, Lactated 1,000 ML IVC ONE (16:09)
[2017-04-14 16:12] LABS: Hematocrit 24.4 % (37.5-50.1); Hemoglobin 8.1 g/dL (12.9-16.9); Lymphocytes # 0.1 K/mcL (0.6-4.6); Lymphocytes % 4.5 %; Mean Corpuscular HGB Conc 33.2 g/dL (31.6-35.5); Mean Corpuscular Hemoglobin 29.3 pg (28.0-33.3); Mean Corpuscular Volume 88.4 fL (83.0-100.0); Mean Platelet Volume 10.4 fL (9.4-12.4); Monocytes # 0.1 K/mcL (0.0-1.3); Monocytes % 2.7 %; Nucleated Red Blood Cells 0.8 /100 WBC (0); Platelet Count 171 K/mcL (140-400); Red Blood Count 2.76 M/mcL (4.19-5.50); Red Cell Distribution Width 15.9 % (11.5-14.5); Segmented Neutrophils % 92.8 %
[2017-04-14] MEDS: Sodium Bicarbonate 150 MEQ in D5% in Water 1,000 ML IVC SCH ×3 (16:15→23:56)
[2017-04-14 16:31] LABS: Calcium 7.6 mg/dL (8.6-10.3); Potassium 3.8 mEq/L (3.5-5.1)
[2017-04-14 16:32] LABS: Neutrophils # 2.4 K/mcL (1.6-8.9)
--- NOTE | 2017-04-14 17:34 | Pulmonology History & Physical ---
<John Gregorio - Last Filed: 04/14/17 18:41> Date of Encounter: 04/14/17 Time of Encounter: 14:30 Assessment and Plan (1) Acidosis, metabolic, with respiratory acidosis Current visit: Yes Status: Acute Initial ABG pH 7.16, pCO2 29, pO2 70. Saturating well, VSS on vent settings: A/c 500 tidal, 60 Fio2, peep 5. (2) Respiratory failure with hypoxia Current visit: Yes Status: Acute ABG per (1). Stable on vent settings. Qualifiers: Chronicity: unspecified Qualified Code(s): J96.91 - Respiratory failure, unspecified with hypoxia (3) Septic shock Current visit: Yes Status: Acute Etiology possibly urosepsis, given past recent history, CKD, presence of longstanding olivares. Cultures pending. On Cefepime, Levaquin, vanc. Received 2L in ED, an additional 2L in ICU, monitoring UOP/edema/pulm (4) Ysiwy-hl-ctzenzy kidney injury Current visit: No Status: Acute Acute on chronic kidney disease 3-4 baseline creat prior to Jan 2017 1.4-2.0, GFR 23-50. Giving 3 ampules bicarbonate for mixed acidosis. Patient does have olivares in place. Qualifiers: Acute renal failure type: unspecified Chronic kidney disease stage: stage 3 (moderate) Qualified Code(s): N17.9 - Acute kidney failure, unspecified; N18.3 - Chronic kidney disease, stage 3 (moderate); N18.3 - Chronic kidney disease, stage 3 (moderate) History of Present Illness Chief complaint: Acute resp failure, sepsis HPI: Mr. Neal is a 61 year old male, recently discharged from [facility] for urosepsis to [facility], with [facility] prison resident, CVA, dementia, diabetes, hypertension, hyperlipidemia, cirrhosis, presents with altered mental status, hypotension, and respiratory distress. Patient was found responsive to painful stimuli only, EMS called and brought to [facility]. ED placed a central line, patient does have olivares catheter, bolused 2L, currently on Norepinephrine 4mg, propofol sedation, broad spectrum abx. Past Med Surg Social Fam HX - Past Medical History Medical history: CVA, dementia, diabetes, hyperlipidemia, hypertension, renal disease, other Psychiatric history: depression, prior suicide attempt - Past Surgical History Surgical History: hip replacement, orthopedic, other, other - Social History Smoking Status: Never smoker Smokeless Tobacco Status: No Alcohol use: none Drug use: none - Family History Mother Living Status: Still Living Hx Family Cardiac Disorders: Yes (A-fib s/p pacemaker) Hx Family Endocrine Disorder: Yes (DM) Father Living Status: Hx Family Cardiac Disorders: Yes (heart disease) Hx Family Respiratory Disorders: No Hx Family Cancer: No Hx Family GI Disorders: No Hx Family Endocrine Disorder: No Hx Family Neuromuscular Disorders: No Hx Family Neurologic Disorders: No Hx Family HEENT Disorders: No Hx Family Autoimmune Disorders: No Brother Living Status: Hx Family Cardiac Disorders: Yes (CO) Hx Family Endocrine Disorder: Yes (DM) Medications and Allergies Cyclosporine [Restasis] 1 drop BOTH EYES BID 11/28/16 [History] Insulin LISPRO [HumaLOG] 0 unit SQ AD 11/28/16 [History] Loratadine [Allergy Relief] 10 mg PO DAILY PRN 11/28/16 [History] Sucralfate [Carafate] 1 gm PO TID #1 bottle 12/03/16 [Rx] DULoxetine [Cymbalta] 30 mg PO DAILY 02/15/17 [History] hydrALAZINE [HydrALAZINE] 25 mg PO Q8HR #90 tablet 03/29/17 [Rx] Amlodipine Besylate 10 mg PO DAILY 04/14/17 [History] Amoxicillin/Clavulanate [Augmentin] 500 mg PO BID 04/14/17 [History] Erythromycin OPTH Oint 1 appl OP HS 04/14/17 [History] Glucagon,Human Recombinant [Glucagen] 1 mg IM Q30MIN PRN 04/14/17 [History] Mirtazapine [Remeron] 30 mg PO HS 04/14/17 [History] Omeprazole [PriLOSEC] 40 mg PO BID 04/14/17 [History] Polyvinyl Alcohol [Artificial Tears] 1 drop BOTH EYES TID 04/14/17 [History] 3 Allergy/AdvReac Type Severity Reaction Status Date / Time aspirin Allergy Rash Verified 02/15/17 02:44 pseudoephedrine Allergy Rash Verified 02/15/17 02:44 [From Sudafed] morphine AdvReac See Verified 04/14/17 11:30 Comments ROS unobtainable: due to endotracheal tube All Systems: The remainder of the systems were reviewed and are negative Physical Examination Vital Signs: Vital Signs, Last 4 Hours Temp Pulse Resp BP Pulse Ox 04/14/17 16:16 20 113/57 98 04/14/17 15:30 78 20 113/57 96 04/14/17 15:10 96.4 F L 04/14/17 14:30 69 20 71/42 98 04/14/17 14:17 69 04/14/17 13:55 92.9 F L 20 105/59 04/14/17 13:41 70 20 71/33 98 General appearance: other (intubated and sedated) Eyes: nonicteric Neck: supple Auscultation: bilateral: diminished breath sounds Cardiovascular: regular rate and rhythm Gastrointestinal: soft (no distention or rigidity) Integumentary: normal Musculoskeletal: no deformities Presence of olivares catheter. Results - Laboratory Findings CBC and BMP: 04/14/17 15:49 04/14/17 15:49 ABG ABG pH 7.16 pH Units (7.32-7.45) L* 04/14/17 16:01 ABG pCO2 29 mmHg (35-45) L 04/14/17 16:01 ABG pO2 70 mmHg (85-104) L 04/14/17 16:01 ABG O2 Saturation 89 % (95-98) L 04/14/17 16:01 PT/INR, D-dimer PT 10.5 Seconds (9.4-12.1) 04/14/17 10:25 Abnormal lab findings: Abnormal lab results WBC 2.6 K/mcL (4.3-11.1) L D 04/14/17 15:49 RBC 2.76 M/mcL (4.19-5.50) L 04/14/17 15:49 Hgb 8.1 g/dL (12.9-16.9) L 04/14/17 15:49 Hct 24.4 % (37.5-50.1) L 04/14/17 15:49 RDW 15.9 % (11.5-14.5) H 04/14/17 15:49 Lymphocytes # 0.1 K/mcL (0.6-4.6) L 04/14/17 15:49 Nucleated RBCs/100 WBC 0.8 /100 WBC (0) H 04/14/17 15:49 APTT 83.0 Seconds (26.0-36.0) H 04/14/17 10:25 ABG pH 7.16 pH Units (7.32-7.45) L* 04/14/17 16:01 ABG pCO2 29 mmHg (35-45) L 04/14/17 16:01 ABG pO2 70 mmHg (85-104) L 04/14/17 16:01 ABG HCO3 10 mEq/L (21-27) L 04/14/17 16:01 ABG Total CO2 11 mEq/L (20-26) L 04/14/17 16:01 ABG O2 Saturation 89 % (95-98) L 04/14/17 16:01 ABG Base Excess -17 mEq/L (-2 to 3) L 04/14/17 16:01 Sodium 134 mEq/L (136-145) L 04/14/17 15:49 Carbon Dioxide 11 mEq/L (23-29) L 04/14/17 15:49 BUN 77 mg/dL (8-23) H 04/14/17 15:49 Creatinine 6.96 mg/dL (0.70-1.30) H 04/14/17 15:49 Est GFR ( Amer) 10 (> 60) L 04/14/17 15:49 Est GFR (Non-Af Amer) 8 (> 60) L 04/14/17 15:49 Glucose 181 mg/dL (70-105) H 04/14/17 15:49 Calculated Osmolality 306 (280-300) H 04/14/17 15:49 Calcium 7.6 mg/dL (8.6-10.3) L 04/14/17 15:49 AST 11 Units/L (13-39) L 04/14/17 10:18 Alkaline Phosphatase 122 Units/L (34-104) H 04/14/17 10:18 Serum Total Protein 5.8 g/dL (6.4-8.9) L 04/14/17 10:18 Albumin 3.2 g/dL (3.5-5.7) L 04/14/17 10:18 Urine Clarity Turbid (Clear) A 04/14/17 10:30 Urine Protein >=300 mg/dL (Neg-Trace) H 04/14/17 10:30 Urine Ketones Trace mg/dL (Negative) H 04/14/17 10:30 Urine Blood Moderate (Negative) H 04/14/17 10:30 Ur Leukocyte Esterase Large (Negative) H 04/14/17 10:30 Urine Microscopic RBC TNTC per hpf (0-3) H 04/14/17 10:30 Urine Microscopic WBC TNTC per hpf (0-3) H 04/14/17 10:30 Ur Squamous Epith Cells Many per lpf (None-Few) H 04/14/17 10:30 Urine Bacteria Many per hpf (None-Few) H 04/14/17 10:30 <Derrick Pedro S - Last Filed: 04/14/17 19:46> Date of Encounter: 04/14/17 History of Present Illness HPI: Mr. Neal is a 61 year old male All Systems: The remainder of the systems were reviewed and are negative Physical Examination Vital Signs: Vital Signs, Last 4 Hours Pulse Resp BP Pulse Ox 04/14/17 17:30 20 113/57 100 04/14/17 16:16 20 113/57 98 04/14/17 15:30 78 20 113/57 96 Results - Laboratory Findings CBC and BMP: 04/14/17 15:49 04/14/17 15:49 ABG ABG pH 7.16 pH Units (7.32-7.45) L* 04/14/17 16:01 ABG pCO2 29 mmHg (35-45) L 04/14/17 16:01 ABG pO2 70 mmHg (85-104) L 04/14/17 16:01 ABG O2 Saturation 89 % (95-98) L 04/14/17 16:01 PT/INR, D-dimer PT 10.5 Seconds (9.4-12.1) 04/14/17 10:25 Abnormal lab findings: Abnormal lab results WBC 2.6 K/mcL (4.3-11.1) L D 04/14/17 15:49 RBC 2.76 M/mcL (4.19-5.50) L 04/14/17 15:49 Hgb 8.1 g/dL (12.9-16.9) L 04/14/17 15:49 Hct 24.4 % (37.5-50.1) L 04/14/17 15:49 RDW 15.9 % (11.5-14.5) H 04/14/17 15:49 Lymphocytes # 0.1 K/mcL (0.6-4.6) L 04/14/17 15:49 Nucleated RBCs/100 WBC 0.8 /100 WBC (0) H 04/14/17 15:49 APTT 83.0 Seconds (26.0-36.0) H 04/14/17 10:25 ABG pH 7.16 pH Units (7.32-7.45) L* 04/14/17 16:01 ABG pCO2 29 mmHg (35-45) L 04/14/17 16:01 ABG pO2 70 mmHg (85-104) L 04/14/17 16:01 ABG HCO3 10 mEq/L (21-27) L 04/14/17 16:01 ABG Total CO2 11 mEq/L (20-26) L 04/14/17 16:01 ABG O2 Saturation 89 % (95-98) L 04/14/17 16:01 ABG Base Excess -17 mEq/L (-2 to 3) L 04/14/17 16:01 Sodium 134 mEq/L (136-145) L 04/14/17 15:49 Carbon Dioxide 11 mEq/L (23-29) L 04/14/17 15:49 BUN 77 mg/dL (8-23) H 04/14/17 15:49 Creatinine 6.96 mg/dL (0.70-1.30) H 04/14/17 15:49 Est GFR ( Amer) 10 (> 60) L 04/14/17 15:49 Est GFR (Non-Af Amer) 8 (> 60) L 04/14/17 15:49 Glucose 181 mg/dL (70-105) H 04/14/17 15:49 Calculated Osmolality 306 (280-300) H 04/14/17 15:49 Calcium 7.6 mg/dL (8.6-10.3) L 04/14/17 15:49 AST 11 Units/L (13-39) L 04/14/17 10:18 Alkaline Phosphatase 122 Units/L (34-104) H 04/14/17 10:18 Serum Total Protein 5.8 g/dL (6.4-8.9) L 04/14/17 10:18 Albumin 3.2 g/dL (3.5-5.7) L 04/14/17 10:18 Urine Clarity Turbid (Clear) A 04/14/17 10:30 Urine Protein >=300 mg/dL (Neg-Trace) H 04/14/17 10:30 Urine Ketones Trace mg/dL (Negative) H 04/14/17 10:30 Urine Blood Moderate (Negative) H 04/14/17 10:30 Ur Leukocyte Esterase Large (Negative) H 04/14/17 10:30 Urine Microscopic RBC TNTC per hpf (0-3) H 04/14/17 10:30 Urine Microscopic WBC TNTC per hpf (0-3) H 04/14/17 10:30 Ur Squamous Epith Cells Many per lpf (None-Few) H 04/14/17 10:30 Urine Bacteria Many per hpf (None-Few) H 04/14/17 10:30 - Attending Attestation I saw and evaluated this patient and my medical decision-making was reviewed with the Resident Physician. I agree with the documented findings, disposition and treatment plan as described except to the extent set forth below. We independently had [id number]-bt-owes contact with the patient. With some additional findings patient coming with PASSENGER INTERLINE CLERK failure most likely due to Septic encephalopathy with septic shock complicated UTI and Pneumonia I spent 35 minutes of Critical Care time with this patient. It involved decision making of high complexity to assess, manipulate, and support vital organ system failure and/or to prevent further life threatening deterioration of the patient's condition. The time involved in the performance of separately reportable procedures was not counted toward critical care time. Patient seen and examined at bedside Labs, radiology, chart personally reviewed. PASSENGER INTERLINE CLERK: Patient has PASSENGER INTERLINE CLERK encephalopathy most likely toxic and metabolic encephalopathy . Pulm:Patient is intubated and ventilated adjusted the ventilator settings for metabolic derangement , bilateral pneumonia acceptable oxygenation and ventilation . Cards:Septic shock on vasopressors complicated by non gap acidosis FEN-GI:NPO Renal: Labs and output reviewed ID:Cultures sent septic shock most likely due to complicated UTI . To continue broad spectrum antibiotics Heme/Onc:Labs reviewed Endo: Glucose Monitored Integ/MSK: Skin Care per routine ICU Nursing Protocol to prevent ulcers. Lines: All lines examined without evidence of infection : Dispo: Remains critically ill CODE: Full Code .
[2017-04-14] MEDS ORDERED: D5% in Water 1,000 ML IVC PRN (21:49)
[2017-04-14] MEDS ORDERED: Dextrose Gel 15 GM/37.5 ML TUBE PO PRN ×2 (21:49)
[2017-04-14] MEDS ORDERED: Insulin LISPRO 300 UNITS/3 ML VIAL SQ SCH (22:00)
[2017-04-14 23:02] LABS: ABG Base Excess -14 mEq/L (-2 to 3); ABG HCO3 11 mEq/L (21-27); ABG Oxygen Saturation 91 % (95-98); ABG PCO2 24 mmHg (35-45); ABG PH 7.28 pH Units (7.32-7.45); ABG PO2 68 mmHg (85-104); ABG TCO2 12 mEq/L (20-26); Blood Gas Modality ASSIST CONTROL; Blood Gas PEEP 5 cm H2O; Blood Gas Respiration Rate 20; Blood Gas VT 500 cc
[2017-04-15] MEDS: Insulin LISPRO 300 UNITS/3 ML VIAL SQ SCH ×5 (01:34→23:29)
[2017-04-15 05:04] LABS: ABG Base Excess -8 mEq/L (-2 to 3); ABG HCO3 16 mEq/L (21-27); ABG Oxygen Saturation 97 % (95-98); ABG PCO2 22 mmHg (35-45); ABG PH 7.45 pH Units (7.32-7.45); ABG PO2 88 mmHg (85-104); ABG TCO2 16 mEq/L (20-26); Blood Gas Modality ASSIST CONTROL; Blood Gas PEEP 5 cm H2O; Blood Gas Respiration Rate 20; Blood Gas VT 500 cc
[2017-04-15 05:12] LABS: Hematocrit 20.8 % (37.5-50.1); Hemoglobin 6.9 g/dL (12.9-16.9); Mean Corpuscular HGB Conc 33.2 g/dL (31.6-35.5); Mean Corpuscular Hemoglobin 28.5 pg (28.0-33.3); Mean Platelet Volume 10.6 fL (9.4-12.4); Platelet Count 125 K/mcL (140-400); Red Blood Count 2.42 M/mcL (4.19-5.50); Red Cell Distribution Width 15.7 % (11.5-14.5)
[2017-04-15 05:36] LABS: Calcium 7.4 mg/dL (8.6-10.3); Potassium 3.3 mEq/L (3.5-5.1)
[2017-04-15] MEDS ORDERED: Insulin LISPRO 300 UNITS/3 ML VIAL SQ SCH (07:30)
[2017-04-15] MEDS: Sodium Bicarbonate 150 MEQ in D5% in Water 1,000 ML IVC SCH (08:22)
--- NOTE | 2017-04-15 09:04 | Nephrology Consult Note ---
Date of Encounter: 04/15/17 Time of Encounter: 08:15 Assessment and Plan (1) Iskfy-rb-rolsahr kidney injury Current Visit: No Status: Acute KARI, oliguricin setting of sepsis most likely due to UTI on Vanco, Cefepime, Levaquin cultures pending. Superimposed on CKD in setting of DM, HTN. Baseline creat 1.4-2.0. Recommend alternative to Vanco for gm+ coverage. No immediate need for HD today unless Bicarb or K worsens. Continue Bicarb drip. Will continue to monitor, avoid nephrotoxins, I&O's. Qualifiers: Acute renal failure type: unspecified Chronic kidney disease stage: stage 3 (moderate) Qualified Code(s): N17.9 - Acute kidney failure, unspecified; N18.3 - Chronic kidney disease, stage 3 (moderate); N18.3 - Chronic kidney disease, stage 3 (moderate) (2) KARI (acute kidney injury) Current Visit: No Status: Acute (3) Recurrent UTI (urinary tract infection) Current Visit: No Status: Acute (4) Sepsis Current Visit: No Status: Resolved Qualifiers: Sepsis type: sepsis due to unspecified organism Qualified Code(s): A41.9 - Sepsis, unspecified organism History of Present Illness - Reason for Consult Acute Kidney Injury - History of Present Illness Mr. Neal is a 61 year old male, known to practice with CKD, baseline creat 1.4- 2.0, in setting of DM, HTN. Prior recent history of KARI in setting of hypovolemia and hypotension, obstructive uropathy in late January requiring HD and most recently in early March for KARI in setting of sepsis most likely due to UTI, obstructive uropathy and was dischrged back to nursing facility with chronic Olivares catheter, He did not require HD during that hospital stay, creat peaked 8.18, discharged at 3.20. Mr. Neal presented from nursing facility yesterday with mental status changes/non responsive. Patient unable to provide medical information therefore HPI obtained from prior records. Mr. Neal was intubated, admitted to ICU with hypotension, sepsis, most likely UTI- chronic olivares with purulent output. He was given a 2 liter fluid bolus and started on IV vancomycin, Cefepime, Levaquin. This morning he remains intubated , sedated with one pressor. Olivares with clearing urine, pus and sediment. Oliguric. Documented urine output 175cc. Creat 6.69. initial creat 8.54. K 3.3. Bicarb 15 (11) on D5W with Bicarb 150meq at 150cc/hr. Past Med Surg Social Fam HX - Past Medical History Medical history: CVA, dementia, diabetes, hyperlipidemia, hypertension, renal disease, other Psychiatric history: depression, prior suicide attempt - Past Surgical History Surgical History: hip replacement, orthopedic, other, other - Social History Smoking Status: Never smoker Smokeless Tobacco Status: No Alcohol use: none Drug use: none - Family History Mother Living Status: Still Living Hx Family Cardiac Disorders: Yes (A-fib s/p pacemaker) Hx Family Endocrine Disorder: Yes (DM) Father Living Status: Hx Family Cardiac Disorders: Yes (heart disease) Hx Family Respiratory Disorders: No Hx Family Cancer: No Hx Family GI Disorders: No Hx Family Endocrine Disorder: No Hx Family Neuromuscular Disorders: No Hx Family Neurologic Disorders: No Hx Family HEENT Disorders: No Hx Family Autoimmune Disorders: No Brother Living Status: Hx Family Cardiac Disorders: Yes (CT) Hx Family Endocrine Disorder: Yes (DM) Medications and Allergies Cyclosporine [Restasis] 1 drop BOTH EYES BID 11/28/16 [History] Insulin LISPRO [HumaLOG] 0 unit SQ AD 11/28/16 [History] Loratadine [Allergy Relief] 10 mg PO DAILY PRN 11/28/16 [History] Sucralfate [Carafate] 1 gm PO TID #1 bottle 12/03/16 [Rx] DULoxetine [Cymbalta] 30 mg PO DAILY 02/15/17 [History] hydrALAZINE [HydrALAZINE] 25 mg PO Q8HR #90 tablet 03/29/17 [Rx] Amlodipine Besylate 10 mg PO DAILY 04/14/17 [History] Amoxicillin/Clavulanate [Augmentin] 500 mg PO BID 04/14/17 [History] Erythromycin OPTH Oint 1 appl OP HS 04/14/17 [History] Glucagon,Human Recombinant [Glucagen] 1 mg IM Q30MIN PRN 04/14/17 [History] Mirtazapine [Remeron] 30 mg PO HS 04/14/17 [History] Omeprazole [PriLOSEC] 40 mg PO BID 04/14/17 [History] Polyvinyl Alcohol [Artificial Tears] 1 drop BOTH EYES TID 04/14/17 [History] 3 Allergy/AdvReac Type Severity Reaction Status Date / Time aspirin Allergy Rash Verified 02/15/17 02:44 pseudoephedrine Allergy Rash Verified 02/15/17 02:44 [From [facility]] morphine AdvReac See Verified 04/14/17 11:30 Comments Review of Systems ROS unobtainable: due to endotracheal tube Exam - Vital Signs Vital signs: Initial Vital Signs Temp Pulse Resp BP Pulse Ox 89.9 F L 54 16 78/42 91 04/14/17 10:01 04/14/17 10:01 04/14/17 10:01 04/14/17 10:01 04/14/17 10:01 Vital Signs - Last 8 Hours Temp Pulse Resp BP Pulse Ox 04/15/17 08:00 77 18 124/64 100 04/15/17 07:12 78 04/15/17 07:10 18 100 04/15/17 07:00 97.1 F L 80 20 127/65 100 04/15/17 06:00 80 20 106/58 98 04/15/17 05:04 36 98 04/15/17 05:00 85 21 72/46 100 04/15/17 04:53 99.4 F 04/15/17 04:00 90 33 98/59 98 04/15/17 03:12 93 33 104/63 97 04/15/17 02:14 28 97 04/15/17 01:00 96 24 106/69 98 Intake and Output 04/14/17 04/15/17 04/15/17 23:59 07:59 15:59 Intake Total 1640 / 1640 1266 / 1266 Output Total 75 / 75 150 / 150 Balance 1565 / 1565 1116 / 1116 Intake: IV Fluids 1640 / 1640 1266 / 1266 Levophed 4 MG In Dextrose 5% 440 / 440 66 / 66 250 ML @ 8 MCG/MIN 30.48 mls/hr IVC CONT ALESSANDRA Rx#:[id number] Diprivan 500 mg In 50 ml @ 5 50 / 50 50 / 50 MCG/KG/MIN 1.497 mls/hr IVC . Q24H ALESSANDRA Rx#:[id number] Sodium Bicarbonate 150 MEQ In 1150 / 1150 1150 / 1150 Dextrose 5% 1,000 ML @ 150 mls/ hr IVC .[id number] [facility] Rx#: [id number] Output: Catheter 75 / 75 150 / 150 Other: Blood Glucose* 281 396 - General Appearance General appearance: chronically ill, frail EENT: mucous membranes moist Neck: no JVD Respiratory: clear Cardiology: no edema, regular rate, regular rhythm Gastrointestinal: hypoactive bowel sounds Integumentary: warm and dry Results - Lab Results 04/15/17 05:00 04/15/17 05:00 Most recent lab results ABG pH 7.45 pH Units (7.32-7.45) 04/15/17 05:01 ABG pCO2 22 mmHg (35-45) L 04/15/17 05:01 ABG pO2 88 mmHg (85-104) 04/15/17 05:01 ABG HCO3 16 mEq/L (21-27) L 04/15/17 05:01 ABG O2 Saturation 97 % (95-98) 04/15/17 05:01 Calcium 7.4 mg/dL (8.6-10.3) L 04/15/17 05:00 Magnesium 2.1 mg/dL (1.6-2.6) 04/14/17 10:18 Consult Discharge Plan - Plan Referrals: Cecil Carter MD [Primary Care Provider] -
[2017-04-15] MEDS ORDERED: 0.9 % Sodium Chloride 250 ML ONE (09:24)
[2017-04-15] MEDS: Cefepime HCl 1,000 MG in 0.9 % Sodium Chloride Mini Bag 100 ML IVPB SCH (11:54)
[2017-04-15] MEDS: *HR* Dextrose 50 % in Water (Syg) 50 ML SYRINGE IVP PRN (17:49)
--- NOTE | 2017-04-15 18:12 | Pulmonology Progress Note ---
<Derrick Pedro S - Last Filed: 04/15/17 18:26> Date of Encounter: 04/15/17 Objective PUL Vital signs: Last Vital Signs Temp 97.7 F 04/15/17 16:00 Pulse 63 04/15/17 18:00 Resp 20 04/15/17 18:00 BP 111/70 04/15/17 18:00 Pulse Ox 96 04/15/17 18:00 Ventilator Settings Ventilator Settings: Ventilator Settings, Last 8 Hours Ventilator Mode A/C Ventilator Mode A/C Ventilator Mode A/C Ventilator Mode A/C Ventilator Mode A/C Ventilator Mode A/C Ventilator Tidal Volume 430 Setting Ventilator Tidal Volume 430 Setting Ventilator Tidal Volume 430 Setting Ventilator Tidal Volume 430 Setting Ventilator Tidal Volume 430 Setting Ventilator Tidal Volume 430 Setting Ventilator Respiratory Rate 18 Setting Ventilator Respiratory Rate 18 Setting Ventilator Respiratory Rate 18 Setting Ventilator Respiratory Rate 18 Setting Ventilator Respiratory Rate 18 Setting Ventilator Respiratory Rate 18 Setting Actual Respiratory Rate 20 Actual Respiratory Rate 18 Actual Respiratory Rate 18 Actual Respiratory Rate 18 Actual Respiratory Rate 18 Actual Respiratory Rate 18 Actual Respiratory Rate 18 Actual Respiratory Rate 18 Actual Respiratory Rate 26 Actual Respiratory Rate 18 Actual Respiratory Rate 18 Actual Respiratory Rate 18 Positive End Expiratory 5 Pressure Positive End Expiratory 5 Pressure Positive End Expiratory 5 Pressure Positive End Expiratory 5 Pressure Positive End Expiratory 5 Pressure Positive End Expiratory 5 Pressure Positive End Expiratory 5 Pressure Positive End Expiratory 5 Pressure Positive End Expiratory 5 Pressure Positive End Expiratory 5 Pressure Positive End Expiratory 5 Pressure Positive End Expiratory 5 Pressure Peak Inspiratory Airway 24 Pressure Peak Inspiratory Airway 22 Pressure Peak Inspiratory Airway 24 Pressure Peak Inspiratory Airway 22 Pressure Peak Inspiratory Airway 24 Pressure Peak Inspiratory Airway 22 Pressure Peak Inspiratory Airway 22 Pressure Peak Inspiratory Airway 23 Pressure Peak Inspiratory Airway 22 Pressure Peak Inspiratory Airway 23 Pressure Peak Inspiratory Airway 23 Pressure Peak Inspiratory Airway 23 Pressure Results - Laboratory Findings CBC and BMP: 04/15/17 05:00 04/15/17 05:00 ABG ABG pH 7.45 pH Units (7.32-7.45) 04/15/17 05:01 ABG pCO2 22 mmHg (35-45) L 04/15/17 05:01 ABG pO2 88 mmHg (85-104) 04/15/17 05:01 ABG O2 Saturation 97 % (95-98) 04/15/17 05:01 PT/INR, D-dimer PT 10.5 Seconds (9.4-12.1) 04/14/17 10:25 Abnormal lab findings: Abnormal lab results RBC 2.42 M/mcL (4.19-5.50) L 04/15/17 05:00 Hgb 6.9 g/dL (12.9-16.9) L 04/15/17 05:00 Hct 20.8 % (37.5-50.1) L 04/15/17 05:00 RDW 15.7 % (11.5-14.5) H 04/15/17 05:00 Plt Count 125 K/mcL (140-400) L 04/15/17 05:00 Lymphocytes # 0.1 K/mcL (0.6-4.6) L 04/14/17 15:49 Nucleated RBCs/100 WBC 0.8 /100 WBC (0) H 04/14/17 15:49 APTT 83.0 Seconds (26.0-36.0) H 04/14/17 10:25 ABG pCO2 22 mmHg (35-45) L 04/15/17 05:01 ABG HCO3 16 mEq/L (21-27) L 04/15/17 05:01 ABG Total CO2 16 mEq/L (20-26) L 04/15/17 05:01 ABG Base Excess -8 mEq/L (-2 to 3) L 04/15/17 05:01 Sodium 134 mEq/L (136-145) L 04/15/17 05:00 Potassium 3.3 mEq/L (3.5-5.1) L 04/15/17 05:00 Carbon Dioxide 15 mEq/L (23-29) L 04/15/17 05:00 BUN 74 mg/dL (8-23) H 04/15/17 05:00 Creatinine 6.69 mg/dL (0.70-1.30) H 04/15/17 05:00 Est GFR ( Amer) 10 (> 60) L 04/15/17 05:00 Est GFR (Non-Af Amer) 9 (> 60) L 04/15/17 05:00 Glucose 191 mg/dL (70-105) H 04/15/17 05:00 POC Glucose 396 (58-89) H 04/14/17 23:55 Calculated Osmolality 305 (280-300) H 04/15/17 05:00 Calcium 7.4 mg/dL (8.6-10.3) L 04/15/17 05:00 AST 11 Units/L (13-39) L 04/14/17 10:18 Alkaline Phosphatase 122 Units/L (34-104) H 04/14/17 10:18 Serum Total Protein 5.8 g/dL (6.4-8.9) L 04/14/17 10:18 Albumin 3.2 g/dL (3.5-5.7) L 04/14/17 10:18 Urine Clarity Turbid (Clear) A 04/14/17 10:30 Urine Protein >=300 mg/dL (Neg-Trace) H 04/14/17 10:30 Urine Ketones Trace mg/dL (Negative) H 04/14/17 10:30 Urine Blood Moderate (Negative) H 04/14/17 10:30 Ur Leukocyte Esterase Large (Negative) H 04/14/17 10:30 Urine Microscopic RBC TNTC per hpf (0-3) H 04/14/17 10:30 Urine Microscopic WBC TNTC per hpf (0-3) H 04/14/17 10:30 Ur Squamous Epith Cells Many per lpf (None-Few) H 04/14/17 10:30 Urine Bacteria Many per hpf (None-Few) H 04/14/17 10:30 - Clinical Findings Intake & Output: Intake & Output 04/15/17 04/15/17 04/15/17 07:59 15:59 23:59 Intake Total 1266 / 1266 350 / 350 1350 / 1350 Output Total 150 / 150 500 / 500 550 / 550 Balance 1116 / 1116 -150 / -150 800 / 800 Consult Discharge Plan - Plan Referrals: Cecil Carter MD [Primary Care Provider] - - Attending Attestation - Attending Attestation I saw and evaluated this patient and my medical decision-making was reviewed with the Resident Physician. I agree with the documented findings, disposition and treatment plan as described except to the extent set forth below. We independently had [id number] contact with the patient. With some additional findings patient coming with RAT TRAPPER failure most likely due to Septic encephalopathy with septic shock complicated UTI and Pneumonia I spent 32 minutes of Critical Care time with this patient. It involved decision making of high complexity to assess, manipulate, and support vital organ system failure and/or to prevent further life threatening deterioration of the patient's condition. The time involved in the performance of separately reportable procedures was not counted toward critical care time. Patient seen and examined at bedside Labs, radiology, chart personally reviewed. RAT TRAPPER: Patient has RAT TRAPPER encephalopathy most likely toxic and metabolic encephalopathy .not following commands will sedation breaks and reasses Pulm:Patient is intubated and ventilated adjusted the ventilator settings for metabolic derangement , bilateral pneumonia acceptable oxygenation and ventilation . To cotinue low tidal volume strategy . Cards:Septic shock on vasopressors complicated by non gap acidosis FEN-GI:NPO Renal: Labs and output reviewed Acute On Chronic Kidney Injury baseline creatinine after the last admission around 4 there is no acute indication of dialysis if not back to baseline tomorrow will call Nephrology ID:Cultures sent septic shock most likely due to complicated UTI . To continue broad spectrum antibiotics Heme/Onc:Labs reviewed Endo: Glucose Monitored Integ/MSK: Skin Care per routine ICU Nursing Protocol to prevent ulcers. Lines: All lines examined without evidence of infection : Dispo: Remains critically ill CODE: Full Code . <John Gregorio - Last Filed: 04/15/17 18:37> Date of Encounter: 04/15/17 Time of Encounter: 09:50 Assessment and Plan (1) Acidosis, metabolic, with respiratory acidosis Current Visit: Yes Status: Acute Today's ABG pH 7.45, pCO2 22, pO2 88. Initial ABG pH 7.16, pCO2 29, pO2 70. Continues to saturate well, VSS on vent settings: A/c 500 tidal, 60 Fio2, peep 5. (2) Respiratory failure with hypoxia Current Visit: Yes Status: Acute ABG per (1). Stable on vent settings. Qualifiers: Chronicity: unspecified Qualified Code(s): J96.91 - Respiratory failure, unspecified with hypoxia (3) Septic shock Current Visit: Yes Status: Acute Etiology possibly urosepsis, given past recent history, CKD, presence of longstanding olivares. Cultures pending. On Cefepime, Levaquin, vanc. Received 2L in ED, an additional 2L in ICU, monitoring UOP/edema/pulm (4) Dhxbn-af-guggscw kidney injury Current Visit: No Status: Acute Acute on chronic kidney disease 3-4 baseline creat prior to Jan 2017 1.4-2.0, GFR 23-50. Giving 3 ampules bicarbonate for mixed acidosis. Patient does have olivares in place. No current need for RESIDENT DOCTOR per Nephrology unless Bicarb or K worsens. Qualifiers: Acute renal failure type: unspecified Chronic kidney disease stage: stage 3 (moderate) Qualified Code(s): N17.9 - Acute kidney failure, unspecified; N18.3 - Chronic kidney disease, stage 3 (moderate); N18.3 - Chronic kidney disease, stage 3 (moderate) Subjective Principal diagnosis: Sepsis Interval history: Responds to loud verbal stimuli, sedated, no acute agitation, ventilated. Objective PUL Vital signs: Last Vital Signs Temp 97.7 F 04/15/17 16:00 Pulse 56 04/15/17 17:00 Resp 18 04/15/17 17:12 BP 137/78 04/15/17 17:00 Pulse Ox 96 04/15/17 17:12 General appearance: other (intubated and sedated) Eyes: nonicteric ENT: oropharynx moist Neck: supple Auscultation: bilateral: diminished breath sounds Cardiovascular: regular rate and rhythm Gastrointestinal: soft, non-distended Extremities: no cyanosis Ventilator Settings Ventilator Settings: Ventilator Settings, Last 8 Hours Ventilator Mode A/C Ventilator Mode A/C Ventilator Mode A/C Ventilator Mode A/C Ventilator Mode A/C Ventilator Mode A/C Ventilator Tidal Volume 430 Setting Ventilator Tidal Volume 430 Setting Ventilator Tidal Volume 430 Setting Ventilator Tidal Volume 430 Setting Ventilator Tidal Volume 430 Setting Ventilator Tidal Volume 430 Setting Ventilator Respiratory Rate 18 Setting Ventilator Respiratory Rate 18 Setting Ventilator Respiratory Rate 18 Setting Ventilator Respiratory Rate 18 Setting Ventilator Respiratory Rate 18 Setting Ventilator Respiratory Rate 18 Setting Actual Respiratory Rate 18 Actual Respiratory Rate 18 Actual Respiratory Rate 18 Actual Respiratory Rate 18 Actual Respiratory Rate 18 Actual Respiratory Rate 18 Actual Respiratory Rate 18 Actual Respiratory Rate 26 Actual Respiratory Rate 18 Actual Respiratory Rate 18 Actual Respiratory Rate 18 Positive End Expiratory 5 Pressure Positive End Expiratory 5 Pressure Positive End Expiratory 5 Pressure Positive End Expiratory 5 Pressure Positive End Expiratory 5 Pressure Positive End Expiratory 5 Pressure Positive End Expiratory 5 Pressure Positive End Expiratory 5 Pressure Positive End Expiratory 5 Pressure Positive End Expiratory 5 Pressure Positive End Expiratory 5 Pressure Peak Inspiratory Airway 22 Pressure Peak Inspiratory Airway 24 Pressure Peak Inspiratory Airway 22 Pressure Peak Inspiratory Airway 24 Pressure Peak Inspiratory Airway 22 Pressure Peak Inspiratory Airway 22 Pressure Peak Inspiratory Airway 23 Pressure Peak Inspiratory Airway 22 Pressure Peak Inspiratory Airway 23 Pressure Peak Inspiratory Airway 23 Pressure Peak Inspiratory Airway 23 Pressure Results - Laboratory Findings CBC and BMP: 04/15/17 05:00 04/15/17 05:00 ABG ABG pH 7.45 pH Units (7.32-7.45) 04/15/17 05:01 ABG pCO2 22 mmHg (35-45) L 04/15/17 05:01 ABG pO2 88 mmHg (85-104) 04/15/17 05:01 ABG O2 Saturation 97 % (95-98) 04/15/17 05:01 PT/INR, D-dimer PT 10.5 Seconds (9.4-12.1) 04/14/17 10:25 Abnormal lab findings: Abnormal lab results RBC 2.42 M/mcL (4.19-5.50) L 04/15/17 05:00 Hgb 6.9 g/dL (12.9-16.9) L 04/15/17 05:00 Hct 20.8 % (37.5-50.1) L 04/15/17 05:00 RDW 15.7 % (11.5-14.5) H 04/15/17 05:00 Plt Count 125 K/mcL (140-400) L 04/15/17 05:00 Lymphocytes # 0.1 K/mcL (0.6-4.6) L 04/14/17 15:49 Nucleated RBCs/100 WBC 0.8 /100 WBC (0) H 04/14/17 15:49 APTT 83.0 Seconds (26.0-36.0) H 04/14/17 10:25 ABG pCO2 22 mmHg (35-45) L 04/15/17 05:01 ABG HCO3 16 mEq/L (21-27) L 04/15/17 05:01 ABG Total CO2 16 mEq/L (20-26) L 04/15/17 05:01 ABG Base Excess -8 mEq/L (-2 to 3) L 04/15/17 05:01 Sodium 134 mEq/L (136-145) L 04/15/17 05:00 Potassium 3.3 mEq/L (3.5-5.1) L 04/15/17 05:00 Carbon Dioxide 15 mEq/L (23-29) L 04/15/17 05:00 BUN 74 mg/dL (8-23) H 04/15/17 05:00 Creatinine 6.69 mg/dL (0.70-1.30) H 04/15/17 05:00 Est GFR ( Amer) 10 (> 60) L 04/15/17 05:00 Est GFR (Non-Af Amer) 9 (> 60) L 04/15/17 05:00 Glucose 191 mg/dL (70-105) H 04/15/17 05:00 POC Glucose 396 (58-89) H 04/14/17 23:55 Calculated Osmolality 305 (280-300) H 04/15/17 05:00 Calcium 7.4 mg/dL (8.6-10.3) L 04/15/17 05:00 AST 11 Units/L (13-39) L 04/14/17 10:18 Alkaline Phosphatase 122 Units/L (34-104) H 04/14/17 10:18 Serum Total Protein 5.8 g/dL (6.4-8.9) L 04/14/17 10:18 Albumin 3.2 g/dL (3.5-5.7) L 04/14/17 10:18 Urine Clarity Turbid (Clear) A 04/14/17 10:30 Urine Protein >=300 mg/dL (Neg-Trace) H 04/14/17 10:30 Urine Ketones Trace mg/dL (Negative) H 04/14/17 10:30 Urine Blood Moderate (Negative) H 04/14/17 10:30 Ur Leukocyte Esterase Large (Negative) H 04/14/17 10:30 Urine Microscopic RBC TNTC per hpf (0-3) H 04/14/17 10:30 Urine Microscopic WBC TNTC per hpf (0-3) H 04/14/17 10:30 Ur Squamous Epith Cells Many per lpf (None-Few) H 04/14/17 10:30 Urine Bacteria Many per hpf (None-Few) H 04/14/17 10:30 - Clinical Findings Intake & Output: Intake & Output 04/15/17 04/15/17 04/15/17 07:59 15:59 23:59 Intake Total 1266 / 1266 350 / 350 1350 / 1350 Output Total 150 / 150 500 / 500 550 / 550 Balance 1116 / 1116 -150 / -150 800 / 800
[2017-04-16 04:45] LABS: ABG Base Excess 5 mEq/L (-2 to 3); ABG HCO3 29 mEq/L (21-27); ABG Oxygen Saturation 97 % (95-98); ABG PCO2 38 mmHg (35-45); ABG PH 7.49 pH Units (7.32-7.45); ABG PO2 82 mmHg (85-104); ABG TCO2 30 mEq/L (20-26); Blood Gas Modality ASSIST CONTROL; Blood Gas PEEP 5 cm H2O; Blood Gas Respiration Rate 18; Blood Gas VT 430 cc
[2017-04-16] MEDS: *HR* Dextrose 50 % in Water (Syg) 50 ML SYRINGE IVP PRN ×2 (05:40→05:50)
[2017-04-16 05:46] LABS: Basophils % 0.5 %; Eosinophils # 0.2 K/mcL (0.0-0.6); Eosinophils % 2.7 %; Hemoglobin 8.3 g/dL (12.9-16.9); Lymphocytes # 1.1 K/mcL (0.6-4.6); Lymphocytes % 13.6 %; Mean Corpuscular HGB Conc 34.6 g/dL (31.6-35.5); Mean Corpuscular Hemoglobin 28.5 pg (28.0-33.3); Mean Corpuscular Volume 82.5 fL (83.0-100.0); Mean Platelet Volume 10.6 fL (9.4-12.4); Monocytes # 0.2 K/mcL (0.0-1.3); Monocytes % 3.1 %; Neutrophils # 6.2 K/mcL (1.6-8.9); Platelet Count 110 K/mcL (140-400); Red Blood Count 2.91 M/mcL (4.19-5.50); Red Cell Distribution Width 15.2 % (11.5-14.5); Segmented Neutrophils % 79.1 %
[2017-04-16 05:48] LABS: Calcium 7.7 mg/dL (8.6-10.3); Magnesium 1.2 mg/dL (1.6-2.6); Potassium 2.9 mEq/L (3.5-5.1)
[2017-04-16] MEDS: Insulin LISPRO 300 UNITS/3 ML VIAL SQ SCH ×4 (06:02→23:12)
[2017-04-16] MEDS ORDERED: Potassium Chloride Elixir 20 MEQ/15 ML UDC GTUBE ONE (06:11)
[2017-04-16] MEDS ORDERED: Magnesium Sulfate 2 GM in D5% in Water 100 ML IVPB ONE (06:12)
[2017-04-16 06:24] LABS: Hypochromasia Present (Not Present); Platelet Estimate Slight Decrease (Normal)
[2017-04-16] MEDS: Potassium Chloride 40 MEQ/200 ML BAG IVPB PRN ×2 (06:24→07:49)
[2017-04-16] MEDS ORDERED: Lacri-Lube 3.5 GM TUBE BOTH EYES PRN (08:25)
[2017-04-16] MEDS ORDERED: Aminoglycoside Consult 1 EACH MC ONE (08:26)
[2017-04-16] MEDS ORDERED: Levofloxacin 500 MG/100 ML 500 MG/100 ML BAG IVPB SCH (09:00)
--- NOTE | 2017-04-16 09:04 | Nephrology Progress Note ---
Date of Encounter: 04/16/17 Time of Encounter: 08:50 - Assessment and Plan (1) Bnkue-nd-elveseh kidney injury Current Visit: No Status: Acute KARI, oliguric in setting of sepsis most likely due to UTI on Vanco, Cefepime, Levaquin. Prelim culture proteus mirabilis. Superimposed on CKD in setting of DM , HTN. Baseline creat 1.4-2.0. Recommend alternative to Vanco for gm+ coverage. Renal fct improving. Creat 5.82. No immediate need for HD today. Documented urine output 1600cc. Will continue to monitor, avoid nephrotoxins, I&O's. Qualifiers: Acute renal failure type: unspecified Chronic kidney disease stage: stage 3 (moderate) Qualified Code(s): N17.9 - Acute kidney failure, unspecified; N18.3 - Chronic kidney disease, stage 3 (moderate); N18.3 - Chronic kidney disease, stage 3 (moderate) (2) KARI (acute kidney injury) Current Visit: No Status: Acute (3) Recurrent UTI (urinary tract infection) Current Visit: No Status: Acute Subjective Principal diagnosis: Sepsis Interval history: Intubated, sedated. Arouses when named called, focuses. Nods head to questions. Objective - Vital Signs Vital signs: Vital Signs Temp Pulse Resp BP Pulse Ox 04/16/17 08:00 97.7 F 12 112/65 97 04/16/17 07:00 97.7 F 70 15 120/70 97 04/16/17 06:40 19 98 04/16/17 06:00 65 18 131/72 95 04/16/17 05:16 97.7 F 04/16/17 05:07 64 18 119/73 97 04/16/17 04:07 63 18 116/67 97 04/16/17 03:45 66 18 127/71 99 04/16/17 03:41 19 127/71 100 04/16/17 02:00 58 18 91/66 96 04/16/17 01:03 97.8 F 04/16/17 01:02 59 18 91/56 100 04/16/17 00:28 66 22 114/58 98 04/15/17 23:53 19 98 04/15/17 23:20 67 04/15/17 23:18 63 18 125/69 98 04/15/17 22:20 19 95 04/15/17 22:01 59 18 130/74 93 04/15/17 21:25 65 22 132/73 96 04/15/17 21:07 97.7 F 04/15/17 20:05 57 18 137/75 94 04/15/17 19:58 18 93 04/15/17 19:40 55 18 119/68 94 04/15/17 18:00 63 20 111/70 96 04/15/17 17:12 18 96 04/15/17 17:00 56 18 137/78 96 04/15/17 16:00 97.7 F 60 18 149/83 97 04/15/17 15:15 18 97 04/15/17 15:00 60 18 136/68 96 04/15/17 14:00 63 18 133/69 96 04/15/17 13:10 20 99 04/15/17 13:00 76 28 130/66 98 04/15/17 12:02 98.3 F 67 18 140/70 99 04/15/17 12:00 98.3 F 67 18 140/70 99 04/15/17 11:15 18 99 04/15/17 11:00 67 18 131/68 99 04/15/17 10:00 72 18 118/61 100 04/15/17 09:50 97.1 F L 72 18 118/61 100 04/15/17 09:35 97.3 F L 75 18 134/69 100 Intake and Output 04/15/17 04/16/17 04/16/17 23:59 07:59 15:59 Intake Total 1350 / 1350 200 / 200 Output Total 950 / 950 700 / 700 200 / 200 Balance 400 / 400 -500 / -500 -200 / -200 Intake: IV Fluids 1350 / 1350 200 / 200 0.9 % Sodium Chloride 250 ML @ 100 / 100 0 mls/hr .ROUTE .STK-MED ONE Rx #:[id number] Diprivan 1,000 mg In 100 ml @ 100 / 100 20 MCG/KG/MIN 5.987 mls/hr IVC .[id number] [facility] Rx#:[id number] Sodium Bicarbonate 150 MEQ In 1150 / 1150 Dextrose 5% 1,000 ML @ 150 mls/ hr IVC .[id number] [facility] Rx#: [id number] Maxipime 1,000 MG In 0.9 % 100 / 100 Sodium Chloride (Mini-Bag +) 100 ML @ 200 mls/hr IVPB Q24H [facility] Rx#:[id number] Potassium Chloride 20 mEq/100 100 / 100 mL 40 meq In 200 ml @ 100 mls/ hr IVPB Q1H PRN Rx#:[id number] Output: Catheter 950 / 950 700 / 700 200 / 200 Other: Stool Size Moderate Stool Consistency soft Stool Color Green # Bowel Movements 1 Weight 134.8 kg 60.781 kg Blood Glucose* 158 71 Patient Weight 04/16/17 23:59 Weight 60.781 kg - General Appearance General appearance: Present: chronically ill, frail EENT: Present: mucous membranes moist Neck: Present: no JVD Respiratory: Present: clear Cardiology: Present: no edema, regular rate, regular rhythm Gastrointestinal: Present: hypoactive bowel sounds, no guarding Integumentary: Present: warm and dry Psychiatric: Present: cooperative - Lab 04/16/17 04:40 04/16/17 04:40 Most recent lab results ABG pH 7.49 pH Units (7.32-7.45) H 04/16/17 04:42 ABG pCO2 38 mmHg (35-45) 04/16/17 04:42 ABG pO2 82 mmHg (85-104) L 04/16/17 04:42 ABG HCO3 29 mEq/L (21-27) H 04/16/17 04:42 ABG O2 Saturation 97 % (95-98) 04/16/17 04:42 Calcium 7.7 mg/dL (8.6-10.3) L 04/16/17 04:40 Magnesium 1.2 mg/dL (1.6-2.6) L 04/16/17 04:40 - VTE Documentation of Mechanical Device: Intermittent pneumatic compression device Consult Discharge Plan - Plan Referrals: Cecil Carter MD [Primary Care Provider] -
[2017-04-16] MEDS: Norepinephrine 4 MG in D5% in Water 250 ML IVC SCH (11:39)
[2017-04-16] MEDS: Chlorhexidine Rinse 15 ML MOUTHWASH MM SCH ×2 (11:39→20:26)
[2017-04-16] MEDS: Lacri-Lube 3.5 GM TUBE BOTH EYES SCH ×4 (11:39→23:12)
[2017-04-16] MEDS: Cefepime HCl 1,000 MG in 0.9 % Sodium Chloride Mini Bag 100 ML IVPB SCH (11:46)
[2017-04-16 12:51] LABS: Magnesium 1.6 mg/dL (1.6-2.6); Potassium 4.1 mEq/L (3.5-5.1)
--- NOTE | 2017-04-16 13:23 | Pulmonology Progress Note ---
<John Gregorio - Last Filed: 04/16/17 16:13> Date of Encounter: 04/16/17 Time of Encounter: 07:30 Assessment and Plan (1) Respiratory failure with hypoxia Current Visit: Yes Status: Acute Pt has demonstrated stable vitals on vent settings, tolerating cpap, transitioned to nasal cannula today, continues to saturate well. Qualifiers: Chronicity: unspecified Qualified Code(s): J96.91 - Respiratory failure, unspecified with hypoxia (2) Acidosis, metabolic, with respiratory acidosis Current Visit: Yes Status: Acute 04/16 ABG pH 7.49, pCO2 38, pO2 82. 2/25 ABG pH 7.45, pCO2 22, pO2 88. 2/24 ABG pH 7.16, pCO2 29, pO2 70. Extubated 0800: continues to saturate well, on 4L NS. (3) Septic shock Current Visit: Yes Status: Acute Etiology possibly urosepsis, given past recent history, CKD, presence of longstanding olivares. Prelim cultures show no growth in blood x2. Urine culture shows proteus mirabillis. Continuing cefepime, stopping levaquin and vanc. (4) Dsmta-to-cerqauf kidney injury Current Visit: No Status: Acute Acute on chronic kidney disease 3-4 baseline creat prior to Jan 2017 1.4-2.0, GFR 23-50. Gave 3 ampules bicarbonate for mixed acidosis. Patient does have olivares in place. 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 Qualifiers: Acute renal failure type: unspecified Chronic kidney disease stage: stage 3 (moderate) Qualified Code(s): N17.9 - Acute kidney failure, unspecified; N18.3 - Chronic kidney disease, stage 3 (moderate); N18.3 - Chronic kidney disease, stage 3 (moderate) Subjective Principal diagnosis: Sepsis Interval history: Ready for extubation, alert, responds to commands, no acute distress. Objective PUL Vital signs: Last Vital Signs Temp 97.7 F 04/16/17 12:00 Pulse 71 04/16/17 12:00 Resp 20 04/16/17 12:00 BP 126/69 04/16/17 12:00 Pulse Ox 98 04/16/17 12:00 General appearance: no acute distress Eyes: nonicteric ENT: oropharynx moist Neck: supple Auscultation: bilateral: diminished breath sounds Cardiovascular: regular rate and rhythm (without rub, gallop, murmur, s3/s4) Gastrointestinal: soft, non-tender Integumentary: normal Extremities: no cyanosis Musculoskeletal: no deformities mood appropriate Ventilator Settings Ventilator Settings: Ventilator Settings, Last 8 Hours Ventilator Mode CPAP Ventilator Mode CPAP Ventilator Mode CPAP Ventilator Mode VC+ Ventilator Mode VC+ Ventilator Mode A/C Ventilator Mode A/C Ventilator Tidal Volume 450 Setting Ventilator Tidal Volume 430 Setting Ventilator Tidal Volume 430 Setting Ventilator Respiratory Rate 14 Setting Ventilator Respiratory Rate 18 Setting Ventilator Respiratory Rate 18 Setting Actual Respiratory Rate 12 Actual Respiratory Rate 10 Actual Respiratory Rate 12 Actual Respiratory Rate 12 Actual Respiratory Rate 15 Actual Respiratory Rate 20 Actual Respiratory Rate 18 Positive End Expiratory 5 Pressure Positive End Expiratory 5 Pressure Positive End Expiratory 5 Pressure Positive End Expiratory 5 Pressure Peak Inspiratory Airway 13 Pressure Peak Inspiratory Airway 13 Pressure Peak Inspiratory Airway 21 Pressure Peak Inspiratory Airway 24 Pressure Peak Inspiratory Airway 24 Pressure Results - Laboratory Findings CBC and BMP: 04/16/17 04:40 04/16/17 12:12 ABG ABG pH 7.49 pH Units (7.32-7.45) H 04/16/17 04:42 ABG pCO2 38 mmHg (35-45) 04/16/17 04:42 ABG pO2 82 mmHg (85-104) L 04/16/17 04:42 ABG O2 Saturation 97 % (95-98) 04/16/17 04:42 PT/INR, D-dimer PT 10.5 Seconds (9.4-12.1) 04/14/17 10:25 Abnormal lab findings: Abnormal lab results RBC 2.91 M/mcL (4.19-5.50) L 04/16/17 04:40 Hgb 8.3 g/dL (12.9-16.9) L 04/16/17 04:40 Hct 24.0 % (37.5-50.1) L 04/16/17 04:40 MCV 82.5 fL (83.0-100.0) L 04/16/17 04:40 RDW 15.2 % (11.5-14.5) H 04/16/17 04:40 Plt Count 110 K/mcL (140-400) L 04/16/17 04:40 Nucleated RBCs/100 WBC 0.8 /100 WBC (0) H 04/14/17 15:49 Platelet Estimate Slight Decrease (Normal) L 04/16/17 04:40 Hypochromasia Present (Not Present) A 04/16/17 04:40 APTT 83.0 Seconds (26.0-36.0) H 04/14/17 10:25 ABG pH 7.49 pH Units (7.32-7.45) H 04/16/17 04:42 ABG pO2 82 mmHg (85-104) L 04/16/17 04:42 ABG HCO3 29 mEq/L (21-27) H 04/16/17 04:42 ABG Total CO2 30 mEq/L (20-26) H 04/16/17 04:42 ABG Base Excess 5 mEq/L (-2 to 3) H 04/16/17 04:42 BUN 72 mg/dL (8-23) H 04/16/17 04:40 Creatinine 5.82 mg/dL (0.70-1.30) H 04/16/17 04:40 Est GFR ( Amer) 12 (> 60) L 04/16/17 04:40 Est GFR (Non-Af Amer) 10 (> 60) L 04/16/17 04:40 Glucose 34 mg/dL (70-105) L* 04/16/17 04:40 POC Glucose 158 (58-89) H 04/15/17 23:28 Calculated Osmolality 304 (280-300) H 04/16/17 04:40 Calcium 7.7 mg/dL (8.6-10.3) L 04/16/17 04:40 AST 11 Units/L (13-39) L 04/14/17 10:18 Alkaline Phosphatase 122 Units/L (34-104) H 04/14/17 10:18 Serum Total Protein 5.8 g/dL (6.4-8.9) L 04/14/17 10:18 Albumin 3.2 g/dL (3.5-5.7) L 04/14/17 10:18 Urine Clarity Turbid (Clear) A 04/14/17 10:30 Urine Protein >=300 mg/dL (Neg-Trace) H 04/14/17 10:30 Urine Ketones Trace mg/dL (Negative) H 04/14/17 10:30 Urine Blood Moderate (Negative) H 04/14/17 10:30 Ur Leukocyte Esterase Large (Negative) H 04/14/17 10:30 Urine Microscopic RBC TNTC per hpf (0-3) H 04/14/17 10:30 Urine Microscopic WBC TNTC per hpf (0-3) H 04/14/17 10:30 Ur Squamous Epith Cells Many per lpf (None-Few) H 04/14/17 10:30 Urine Bacteria Many per hpf (None-Few) H 04/14/17 10:30 - Microbiology Findings Microbiology Findings: Microbiology, Last 48 Hours 04/16/17 04:40 Sputum Culture - Preliminary Sputum - Clinical Findings Intake & Output: Intake & Output 04/15/17 04/16/17 04/16/17 23:59 07:59 15:59 Intake Total 1350 / 1350 200 / 200 Output Total 950 / 950 700 / 700 475 / 475 Balance 400 / 400 -500 / -500 -475 / -475 Weight 134.8 kg 60.781 kg - VTE Documentation of Mechanical Device: Intermittent pneumatic compression device Consult Discharge Plan - Plan Referrals: Cecil Carter MD [Primary Care Provider] - <Magdaleno Adler - Last Filed: 04/16/17 16:41> Date of Encounter: 04/16/17 Objective PUL Vital signs: Last Vital Signs Temp 97.6 F 04/16/17 16:00 Pulse 65 04/16/17 15:00 Resp 11 04/16/17 15:00 BP 110/73 04/16/17 15:00 Pulse Ox 92 04/16/17 15:00 Ventilator Settings Ventilator Settings: Ventilator Settings, Last 8 Hours Ventilator Mode CPAP Ventilator Mode CPAP Actual Respiratory Rate 12 Actual Respiratory Rate 10 Peak Inspiratory Airway 13 Pressure Results - Laboratory Findings CBC and BMP: 04/16/17 04:40 04/16/17 12:12 ABG ABG pH 7.49 pH Units (7.32-7.45) H 04/16/17 04:42 ABG pCO2 38 mmHg (35-45) 04/16/17 04:42 ABG pO2 82 mmHg (85-104) L 04/16/17 04:42 ABG O2 Saturation 97 % (95-98) 04/16/17 04:42 PT/INR, D-dimer PT 10.5 Seconds (9.4-12.1) 04/14/17 10:25 Abnormal lab findings: Abnormal lab results RBC 2.91 M/mcL (4.19-5.50) L 04/16/17 04:40 Hgb 8.3 g/dL (12.9-16.9) L 04/16/17 04:40 Hct 24.0 % (37.5-50.1) L 04/16/17 04:40 MCV 82.5 fL (83.0-100.0) L 04/16/17 04:40 RDW 15.2 % (11.5-14.5) H 04/16/17 04:40 Plt Count 110 K/mcL (140-400) L 04/16/17 04:40 Nucleated RBCs/100 WBC 0.8 /100 WBC (0) H 04/14/17 15:49 Platelet Estimate Slight Decrease (Normal) L 04/16/17 04:40 Hypochromasia Present (Not Present) A 04/16/17 04:40 APTT 83.0 Seconds (26.0-36.0) H 04/14/17 10:25 ABG pH 7.49 pH Units (7.32-7.45) H 04/16/17 04:42 ABG pO2 82 mmHg (85-104) L 04/16/17 04:42 ABG HCO3 29 mEq/L (21-27) H 04/16/17 04:42 ABG Total CO2 30 mEq/L (20-26) H 04/16/17 04:42 ABG Base Excess 5 mEq/L (-2 to 3) H 04/16/17 04:42 BUN 72 mg/dL (8-23) H 04/16/17 04:40 Creatinine 5.82 mg/dL (0.70-1.30) H 04/16/17 04:40 Est GFR ( Amer) 12 (> 60) L 04/16/17 04:40 Est GFR (Non-Af Amer) 10 (> 60) L 04/16/17 04:40 Glucose 34 mg/dL (70-105) L* 04/16/17 04:40 POC Glucose 158 (58-89) H 04/15/17 23:28 Calculated Osmolality 304 (280-300) H 04/16/17 04:40 Calcium 7.7 mg/dL (8.6-10.3) L 04/16/17 04:40 AST 11 Units/L (13-39) L 04/14/17 10:18 Alkaline Phosphatase 122 Units/L (34-104) H 04/14/17 10:18 Serum Total Protein 5.8 g/dL (6.4-8.9) L 04/14/17 10:18 Albumin 3.2 g/dL (3.5-5.7) L 04/14/17 10:18 Urine Clarity Turbid (Clear) A 04/14/17 10:30 Urine Protein >=300 mg/dL (Neg-Trace) H 04/14/17 10:30 Urine Ketones Trace mg/dL (Negative) H 04/14/17 10:30 Urine Blood Moderate (Negative) H 04/14/17 10:30 Ur Leukocyte Esterase Large (Negative) H 04/14/17 10:30 Urine Microscopic RBC TNTC per hpf (0-3) H 04/14/17 10:30 Urine Microscopic WBC TNTC per hpf (0-3) H 04/14/17 10:30 Ur Squamous Epith Cells Many per lpf (None-Few) H 04/14/17 10:30 Urine Bacteria Many per hpf (None-Few) H 04/14/17 10:30 - Microbiology Findings Microbiology Findings: Microbiology, Last 48 Hours 04/16/17 04:40 Sputum Culture - Preliminary Sputum - Clinical Findings Intake & Output: Intake & Output 04/16/17 04/16/17 04/16/17 07:59 15:59 23:59 Intake Total 200 / 200 Output Total 700 / 700 475 / 475 250 / 250 Balance -500 / -500 -475 / -475 -250 / -250 Weight 134.8 kg 60.781 kg - Attending Attestation I examined this patient and my medical decision-making was reviewed with the Resident Physician. I agree with the documented findings, disposition and treatment plan as described except to the extent set forth below. Patient seen and examined. Labs, radiology, chart personally reviewed. 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
[2017-04-16] MEDS: *HR* Heparin 5,000 UNIT/ML VIAL SQ SCH (18:47)
[2017-04-17] MEDS: *HR* Heparin 5,000 UNIT/ML VIAL SQ SCH ×2 (05:06→19:33)
[2017-04-17] MEDS: Lacri-Lube 3.5 GM TUBE BOTH EYES SCH ×2 (05:06→07:40)
[2017-04-17] MEDS: *HR* Dextrose 50 % in Water (Syg) 50 ML SYRINGE IVP PRN ×4 (05:10→19:25)
[2017-04-17] MEDS: Insulin LISPRO 300 UNITS/3 ML VIAL SQ SCH ×4 (05:21→19:34)
[2017-04-17 05:27] LABS: Hematocrit 22.9 % (37.5-50.1); Hemoglobin 7.7 g/dL (12.9-16.9); Mean Corpuscular HGB Conc 33.6 g/dL (31.6-35.5); Mean Corpuscular Hemoglobin 28.4 pg (28.0-33.3); Mean Corpuscular Volume 84.5 fL (83.0-100.0); Mean Platelet Volume 10.4 fL (9.4-12.4); Platelet Count 106 K/mcL (140-400); Red Blood Count 2.71 M/mcL (4.19-5.50); Red Cell Distribution Width 15.4 % (11.5-14.5)
[2017-04-17 05:58] LABS: Calcium 8.2 mg/dL (8.6-10.3); Potassium 3.8 mEq/L (3.5-5.1)
[2017-04-17 06:40] LABS: Magnesium 2.1 mg/dL (1.6-2.6)
[2017-04-17] MEDS: Chlorhexidine Rinse 15 ML MOUTHWASH MM SCH (07:40)
--- NOTE | 2017-04-17 07:42 | Pulmonology Progress Note ---
<John Gregorio - Last Filed: 04/17/17 14:58> Date of Encounter: 04/17/17 Time of Encounter: 09:00 Assessment and Plan (1) Respiratory failure with hypoxia Current Visit: Yes Status: Acute Continues to saturate well on nasal cannula 4L. Sputum +MRSA, restarting vanc, has had good troughs since admission. Qualifiers: Chronicity: unspecified Qualified Code(s): J96.91 - Respiratory failure, unspecified with hypoxia (2) Acidosis, metabolic, with respiratory acidosis Current Visit: Yes Status: Acute 04/16 ABG pH 7.49, pCO2 38, pO2 82. 2/25 ABG pH 7.45, pCO2 22, pO2 88. 2/24 ABG pH 7.16, pCO2 29, pO2 70. Extubated 0804/16: continues to saturate well, on 4L NS. (3) Septic shock Current Visit: Yes Status: Acute Etiology possibly urosepsis, given past recent history, CKD, presence of longstanding olivares. Prelim cultures show no growth in blood x2. Urine culture shows proteus mirabillis. Narrowing spectrum from cefepime to ceftriaxone 2g q24h. (4) Xuids-bu-jbcyvxu kidney injury Current Visit: No Status: Acute Acute on chronic kidney disease 3-4 baseline creat prior to Jan 2017 1.4-2.0, GFR 23-50. Gave 3 ampules bicarbonate for mixed acidosis day of admission. Patient does have olivares in place. 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 Qualifiers: Acute renal failure type: unspecified Chronic kidney disease stage: stage 3 (moderate) Qualified Code(s): N17.9 - Acute kidney failure, unspecified; N18.3 - Chronic kidney disease, stage 3 (moderate); N18.3 - Chronic kidney disease, stage 3 (moderate) Subjective Principal diagnosis: Sepsis Interval history: Patient seen and evaluated. States he is breathing well on nasal cannula. Has tolerated extubation yesterday 04/16. Swallows well, will be eating diabetic diet breakfast today. No chest pain, fever, or abdominal discomfort. Objective PUL Vital signs: Last Vital Signs Temp 96.6 F L 04/17/17 03:30 Pulse 75 04/17/17 06:00 Resp 16 04/17/17 06:00 BP 121/71 04/17/17 06:00 Pulse Ox 94 04/17/17 06:00 General appearance: no acute distress Eyes: nonicteric ENT: oropharynx moist Neck: supple Effort: mildly labored Auscultation: bilateral: diminished breath sounds, rales Cardiovascular: regular rate and rhythm Gastrointestinal: soft, tender, non-distended Extremities: no cyanosis Musculoskeletal: no deformities non-focal exam mood appropriate Results - Laboratory Findings CBC and BMP: 04/17/17 05:14 04/17/17 05:14 ABG ABG pH 7.49 pH Units (7.32-7.45) H 04/16/17 04:42 ABG pCO2 38 mmHg (35-45) 04/16/17 04:42 ABG pO2 82 mmHg (85-104) L 04/16/17 04:42 ABG O2 Saturation 97 % (95-98) 04/16/17 04:42 PT/INR, D-dimer PT 10.5 Seconds (9.4-12.1) 04/14/17 10:25 Abnormal lab findings: Abnormal lab results RBC 2.71 M/mcL (4.19-5.50) L 04/17/17 05:14 Hgb 7.7 g/dL (12.9-16.9) L 04/17/17 05:14 Hct 22.9 % (37.5-50.1) L 04/17/17 05:14 RDW 15.4 % (11.5-14.5) H 04/17/17 05:14 Plt Count 106 K/mcL (140-400) L 04/17/17 05:14 Nucleated RBCs/100 WBC 0.8 /100 WBC (0) H 04/14/17 15:49 Platelet Estimate Slight Decrease (Normal) L 04/16/17 04:40 Hypochromasia Present (Not Present) A 04/16/17 04:40 APTT 83.0 Seconds (26.0-36.0) H 04/14/17 10:25 ABG pH 7.49 pH Units (7.32-7.45) H 04/16/17 04:42 ABG pO2 82 mmHg (85-104) L 04/16/17 04:42 ABG HCO3 29 mEq/L (21-27) H 04/16/17 04:42 ABG Total CO2 30 mEq/L (20-26) H 04/16/17 04:42 ABG Base Excess 5 mEq/L (-2 to 3) H 04/16/17 04:42 Sodium 134 mEq/L (136-145) L 04/17/17 05:14 BUN 65 mg/dL (8-23) H 04/17/17 05:14 Creatinine 5.22 mg/dL (0.70-1.30) H 04/17/17 05:14 Est GFR ( Amer) 14 (> 60) L 04/17/17 05:14 Est GFR (Non-Af Amer) 11 (> 60) L 04/17/17 05:14 Glucose 60 mg/dL (70-105) L 04/17/17 05:14 POC Glucose 95 (58-89) H 04/16/17 23:07 Calcium 8.2 mg/dL (8.6-10.3) L 04/17/17 05:14 AST 11 Units/L (13-39) L 04/14/17 10:18 Alkaline Phosphatase 122 Units/L (34-104) H 04/14/17 10:18 Serum Total Protein 5.8 g/dL (6.4-8.9) L 04/14/17 10:18 Albumin 3.2 g/dL (3.5-5.7) L 04/14/17 10:18 Urine Clarity Turbid (Clear) A 04/14/17 10:30 Urine Protein >=300 mg/dL (Neg-Trace) H 04/14/17 10:30 Urine Ketones Trace mg/dL (Negative) H 04/14/17 10:30 Urine Blood Moderate (Negative) H 04/14/17 10:30 Ur Leukocyte Esterase Large (Negative) H 04/14/17 10:30 Urine Microscopic RBC TNTC per hpf (0-3) H 04/14/17 10:30 Urine Microscopic WBC TNTC per hpf (0-3) H 04/14/17 10:30 Ur Squamous Epith Cells Many per lpf (None-Few) H 04/14/17 10:30 Urine Bacteria Many per hpf (None-Few) H 04/14/17 10:30 - Microbiology Findings Microbiology Findings: Microbiology, Last 48 Hours 04/16/17 04:40 Sputum Culture - Preliminary Sputum - Clinical Findings Intake & Output: Intake & Output 04/16/17 04/16/17 04/17/17 15:59 23:59 07:59 Intake Total 994 / 994 470 / 470 Output Total 475 / 475 550 / 550 400 / 400 Balance -475 / -475 444 / 444 70 / 70 Weight 60.781 kg 60.5 kg - VTE Documentation of Mechanical Device: Intermittent pneumatic compression device Consult Discharge Plan - Plan Referrals: Cecil Carter MD [Primary Care Provider] - <Magdaleno Adler - Last Filed: 04/17/17 17:29> Date of Encounter: 04/17/17 Objective PUL Vital signs: Last Vital Signs Temp 97.6 F 04/17/17 16:56 Pulse 67 04/17/17 16:56 Resp 15 04/17/17 16:56 BP 133/68 04/17/17 16:56 Pulse Ox 93 04/17/17 16:56 Results - Laboratory Findings CBC and BMP: 04/17/17 05:14 04/17/17 05:14 ABG ABG pH 7.49 pH Units (7.32-7.45) H 04/16/17 04:42 ABG pCO2 38 mmHg (35-45) 04/16/17 04:42 ABG pO2 82 mmHg (85-104) L 04/16/17 04:42 ABG O2 Saturation 97 % (95-98) 04/16/17 04:42 PT/INR, D-dimer PT 10.5 Seconds (9.4-12.1) 04/14/17 10:25 Abnormal lab findings: Abnormal lab results RBC 2.71 M/mcL (4.19-5.50) L 04/17/17 05:14 Hgb 7.7 g/dL (12.9-16.9) L 04/17/17 05:14 Hct 22.9 % (37.5-50.1) L 04/17/17 05:14 RDW 15.4 % (11.5-14.5) H 04/17/17 05:14 Plt Count 106 K/mcL (140-400) L 04/17/17 05:14 Nucleated RBCs/100 WBC 0.8 /100 WBC (0) H 04/14/17 15:49 Platelet Estimate Slight Decrease (Normal) L 04/16/17 04:40 Hypochromasia Present (Not Present) A 04/16/17 04:40 APTT 83.0 Seconds (26.0-36.0) H 04/14/17 10:25 ABG pH 7.49 pH Units (7.32-7.45) H 04/16/17 04:42 ABG pO2 82 mmHg (85-104) L 04/16/17 04:42 ABG HCO3 29 mEq/L (21-27) H 04/16/17 04:42 ABG Total CO2 30 mEq/L (20-26) H 04/16/17 04:42 ABG Base Excess 5 mEq/L (-2 to 3) H 04/16/17 04:42 Sodium 134 mEq/L (136-145) L 04/17/17 05:14 BUN 65 mg/dL (8-23) H 04/17/17 05:14 Creatinine 5.22 mg/dL (0.70-1.30) H 04/17/17 05:14 Est GFR ( Amer) 14 (> 60) L 04/17/17 05:14 Est GFR (Non-Af Amer) 11 (> 60) L 04/17/17 05:14 Glucose 60 mg/dL (70-105) L 04/17/17 05:14 Calcium 8.2 mg/dL (8.6-10.3) L 04/17/17 05:14 AST 11 Units/L (13-39) L 04/14/17 10:18 Alkaline Phosphatase 122 Units/L (34-104) H 04/14/17 10:18 Serum Total Protein 5.8 g/dL (6.4-8.9) L 04/14/17 10:18 Albumin 3.2 g/dL (3.5-5.7) L 04/14/17 10:18 Urine Clarity Turbid (Clear) A 04/14/17 10:30 Urine Protein >=300 mg/dL (Neg-Trace) H 04/14/17 10:30 Urine Ketones Trace mg/dL (Negative) H 04/14/17 10:30 Urine Blood Moderate (Negative) H 04/14/17 10:30 Ur Leukocyte Esterase Large (Negative) H 04/14/17 10:30 Urine Microscopic RBC TNTC per hpf (0-3) H 04/14/17 10:30 Urine Microscopic WBC TNTC per hpf (0-3) H 04/14/17 10:30 Ur Squamous Epith Cells Many per lpf (None-Few) H 04/14/17 10:30 Urine Bacteria Many per hpf (None-Few) H 04/14/17 10:30 - Microbiology Findings Microbiology Findings: Microbiology, Last 48 Hours 04/16/17 04:40 Sputum Culture - Preliminary Sputum Staphylococcus aureus - Clinical Findings Intake & Output: Intake & Output 04/17/17 04/17/17 04/17/17 07:59 15:59 23:59 Intake Total 470 / 470 1720 / 1720 0 / 0 Output Total 625 / 625 200 / 200 400 / 400 Balance -155 / -155 1520 / 1520 -400 / -400 - Attending Attestation I examined this patient and my medical decision-making was reviewed with the Resident Physician. I agree with the documented findings, disposition and treatment plan as described except to the extent set forth below. Patient seen and examined. Labs, radiology, chart personally reviewed. 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 Cardiovascular: stable GI: Nutrition per dietary and GI prophylaxis per routine Heme: DVT prophylaxis per routine ID: Continue antibiotics and plan to de-escalation Renal; urine out put and renal funtion reviewed Endorcine: blood glucose is monitored Lines: all lines checked and no evidence of infections Skin: skin care to prevent pressure ulcers per nursing routine care Patient hemodynamically stable and transferred to the floor.
[2017-04-17] MEDS: Norepinephrine 4 MG in D5% in Water 250 ML IVC SCH (11:18)
[2017-04-17] MEDS: Cefepime HCl 1,000 MG in 0.9 % Sodium Chloride Mini Bag 100 ML IVPB SCH (11:19)
--- NOTE | 2017-04-17 13:17 | Nephrology Progress Note ---
Date of Encounter: 04/17/17 Time of Encounter: 13:15 - Assessment and Plan (1) KARI (acute kidney injury) Current Visit: No Status: Acute Patient has acute kidney injury in the setting of severe recurrent urinary tract infections and possible chronic urinary tract infections as well. He has difficulty opening his bladder needs to be maintained with a Spears catheter indefinitely. (2) UTI (urinary tract infection) Current Visit: No Status: Chronic Qualifiers: Urinary tract infection type: acute cystitis Hematuria presence: without hematuria Qualified Code(s): N30.00 - Acute cystitis without hematuria Subjective Principal diagnosis: Sepsis Interval history: Patient denies any complaints. He says he is feeling better. Serum creatinine is improving down to 5.22. Urine output is adequate. Urine cultures growing Proteus. Objective - Vital Signs Vital signs: Vital Signs Temp Pulse Resp BP Pulse Ox 04/17/17 11:00 97.7 F 79 16 131/65 91 04/17/17 10:00 79 15 130/63 91 04/17/17 09:00 85 20 132/67 90 04/17/17 08:00 75 12 131/75 90 04/17/17 07:00 97.1 F L 74 14 118/68 91 04/17/17 06:00 75 16 121/71 94 04/17/17 05:00 70 14 127/72 95 04/17/17 04:00 77 16 134/77 95 04/17/17 03:30 96.6 F L 69 18 128/71 94 04/17/17 02:00 67 16 122/76 96 04/17/17 01:00 66 16 131/71 95 04/17/17 00:00 72 14 124/70 96 04/16/17 23:00 96.6 F L 70 18 114/80 94 04/16/17 22:00 71 16 127/82 94 04/16/17 21:00 75 14 120/84 96 04/16/17 20:00 66 16 127/90 95 04/16/17 19:45 96.6 F L 66 16 134/84 97 04/16/17 18:00 66 12 124/76 94 04/16/17 17:00 73 20 106/77 92 04/16/17 16:00 97.6 F 77 15 128/81 94 04/16/17 15:00 65 11 110/73 92 02/26/18 14:00 68 11 124/70 92 Intake and Output 04/16/17 04/17/17 04/17/17 23:59 07:59 15:59 Intake Total 994 / 994 470 / 470 1680 / 1680 Output Total 550 / 550 625 / 625 200 / 200 Balance 444 / 444 -155 / -155 1480 / 1480 Intake: IV Fluids 50 / 50 Magnesium Sulfate Premix 2gm/ 50 / 50 50mL 2 gm In 50 ml @ 50 mls/hr IVPB Q6H PRN Rx#:[id number] Oral 944 / 944 470 / 470 1680 / 1680 Output: Catheter 550 / 550 625 / 625 200 / 200 Other: Meal Dinner Breakfast Percent of Meal Consumed 85% 5% 100% Stool Size Large Stool Consistency liquid Stool Color Brown Yellow # Bowel Movements 1 Weight 60.5 kg Blood Glucose* 95 154 283 - General Appearance Exam: Patient is alert and oriented. He is in no acute distress. He appears chronically ill and cachectic. Lungs coarse breath sounds. Heart regular rate and rhythm. Abdomen is benign. There is no peripheral edema. A Spears catheter is in place. - Lab 04/17/17 05:14 04/17/17 05:14 Most recent lab results ABG pH 7.49 pH Units (7.32-7.45) H 04/16/17 04:42 ABG pCO2 38 mmHg (35-45) 04/16/17 04:42 ABG pO2 82 mmHg (85-104) L 04/16/17 04:42 ABG HCO3 29 mEq/L (21-27) H 04/16/17 04:42 ABG O2 Saturation 97 % (95-98) 04/16/17 04:42 Calcium 8.2 mg/dL (8.6-10.3) L 04/17/17 05:14 Magnesium 2.1 mg/dL (1.6-2.6) 04/17/17 05:14 - VTE Documentation of Mechanical Device: Intermittent pneumatic compression device Consult Discharge Plan - Plan Referrals: eCcil Carter MD [Primary Care Provider] -
[2017-04-17] MEDS: cefTRIAXone 2,000 MG in Water for inj. (sterile) 20 ML 20 ML IVP SCH (15:22)
--- NOTE | 2017-04-17 18:14 | Electrocardiograph Report ---
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
[2017-04-18] MEDS: *HR* Heparin 5,000 UNIT/ML VIAL SQ SCH ×2 (06:13→18:45)
--- NOTE | 2017-04-18 08:56 | Nephrology Progress Note ---
Date of Encounter: 04/18/17 Time of Encounter: 08:54 - Assessment and Plan (1) KARI (acute kidney injury) Current Visit: No Status: Acute Patient has acute kidney injury in the setting of severe recurrent urinary tract infections and possible chronic urinary tract infections as well. He has difficulty emptying his bladder needs to be maintained with a Spears catheter indefinitely. Laboratory studies today are pending. The patient may require reinitiation of IV fluids and continues to have low by mouth intake. He may require a long-term solution such as a PEG tube. (2) UTI (urinary tract infection) Current Visit: No Status: Chronic Qualifiers: Urinary tract infection type: acute cystitis Hematuria presence: without hematuria Qualified Code(s): N30.00 - Acute cystitis without hematuria Subjective Principal diagnosis: Sepsis Interval history: The patient is been transferred out of the intensive care unit. Lab today is pending. As of yesterday his acute kidney injury was continuing to improve. It appears as though his oral intake remains low. This may become an issue and will put him at risk for recurrent acute kidney injury related to volume depletion. Objective - Vital Signs Vital signs: Vital Signs Temp Pulse Resp BP Pulse Ox 04/18/17 07:42 97.7 F 58 16 163/79 97 04/18/17 04:05 57 17 174/79 96 04/18/17 01:07 97.7 F 56 16 161/84 99 04/17/17 23:46 16 91 04/17/17 19:31 14 90 04/17/17 19:06 97.6 F 61 14 120/61 98 04/17/17 16:56 97.6 F 67 15 133/68 93 04/17/17 13:00 75 16 139/72 96 04/17/17 12:00 74 14 123/77 95 04/17/17 11:00 97.7 F 79 16 131/65 91 04/17/17 10:00 79 15 130/63 91 04/17/17 09:00 85 20 132/67 90 Intake and Output 04/17/17 04/18/17 04/18/17 23:59 07:59 15:59 Intake Total 120 / 120 0 / 0 Output Total 400 / 400 325 / 325 Balance -280 / -280 -325 / -325 Intake: Oral 120 / 120 0 / 0 Output: Urine 325 / 325 Catheter 400 / 400 0 / 0 Other: # Urine Diapers 2 # Bowel Movement Diapers 0 Blood Glucose* 111 176 - General Appearance Exam: Patient is in no acute distress. He appears chronically ill and cachectic. Vital signs are stable. Lungs coarse breath sounds otherwise clear. Heart regular rate and rhythm. Abdomen is benign. There is no lower extremity swelling. Spears catheter is in place draining clear urine. - Lab 04/17/17 05:14 04/17/17 05:14 Most recent lab results ABG pH 7.49 pH Units (7.32-7.45) H 04/16/17 04:42 ABG pCO2 38 mmHg (35-45) 04/16/17 04:42 ABG pO2 82 mmHg (85-104) L 04/16/17 04:42 ABG HCO3 29 mEq/L (21-27) H 04/16/17 04:42 ABG O2 Saturation 97 % (95-98) 04/16/17 04:42 Calcium 8.2 mg/dL (8.6-10.3) L 04/17/17 05:14 Magnesium 2.1 mg/dL (1.6-2.6) 04/17/17 05:14 - VTE Documentation of Mechanical Device: Intermittent pneumatic compression device Consult Discharge Plan - Plan Referrals: Cecil Carter MD [Primary Care Provider] -
[2017-04-18] MEDS ORDERED: Vancomycin 1 EACH in EMPTY BAG 1 EACH IVPB SCH (09:00)
[2017-04-18 10:06] LABS: Basophils % 0.3 %; Eosinophils # 0.1 K/mcL (0.0-0.6); Hematocrit 25.9 % (37.5-50.1); Hemoglobin 8.6 g/dL (12.9-16.9); Immature Granulocytes % 0.5 % (0-4); Lymphocytes # 0.4 K/mcL (0.6-4.6); Lymphocytes % 4.9 %; Mean Corpuscular HGB Conc 33.2 g/dL (31.6-35.5); Mean Corpuscular Volume 87.2 fL (83.0-100.0); Mean Platelet Volume 10.4 fL (9.4-12.4); Monocytes # 0.2 K/mcL (0.0-1.3); Platelet Count 112 K/mcL (140-400); Red Blood Count 2.97 M/mcL (4.19-5.50); Red Cell Distribution Width 15.4 % (11.5-14.5); Segmented Neutrophils % 90.3 %
[2017-04-18 10:22] LABS: Albumin 2.4 g/dL (3.5-5.7); Bilirubin,Total 0.4 mg/dL (0.3-1.0); Calcium 8.4 mg/dL (8.6-10.3); Globulin 2.4 g/dL (2.4-3.5); Potassium 4.2 mEq/L (3.5-5.1); Total Protein 4.8 g/dL (6.4-8.9)
[2017-04-18] MEDS: 0.9 % Sodium Chloride 1,000 ML IVC SCH ×2 (10:58→23:36)
[2017-04-18] MEDS ORDERED: Vancomycin 500 MG in 0.9 % Sodium Chloride Mini Bag 100 ML IVPB ONE (11:00)
--- NOTE | 2017-04-18 13:50 | Internal Med Progress Note ---
<HarmonyRandall Garland - Last Filed: 04/18/17 13:44> Date of Encounter: 04/18/17 Time of Encounter: 13:44 - Assessment and plan (1) Respiratory failure with hypoxia Current Visit: Yes Status: Acute Assessment and plan: Secondary to MRSA pneumonia. Patient was successfully liberated from mechanical ventilation and tolerating nasal cannula oxygen at 4-5 L and BiPAP intermittently. Continue oxygen supplementation and wean O2 to maintain saturation above 90%. Qualifiers: Chronicity: acute Qualified Code(s): J96.01 - Acute respiratory failure with hypoxia (2) Septic shock Current Visit: Yes Status: Resolved Assessment and plan: Secondary to MRSA pneumonia. Resolved at this time. (3) Pneumonia Current Visit: Yes Status: Acute Assessment and plan: Secondary to MRSA. Gram-negative rods are also growing in the sputum culture. Patient appears to be clinically improving. Continue vancomycin with pharmacy assisting in dosing and Rocephin 2 g every 24 hours. Blood cultures are preliminarily negative. Today is day 5 of antibiotic therapy. Qualifiers: Pneumonia type: due to methicillin-resistant Staphylococcus aureus (MRSA) Laterality: bilateral Lung location: unspecified part of lung Qualified Code (s): J15.212 - Pneumonia due to Methicillin resistant Staphylococcus aureus (4) Fctfx-de-blkgubm kidney injury Current Visit: No Status: Acute Assessment and plan: KARI on CKD stage III. Acute worsening of her renal function is likely related to hypoperfusion setting of septic shock. Baseline appears to be 1.8-2 however he did have another recent episode of a cat with a creatinine as high as 9.3 at the end of January 2017 so his baseline may be worsening. Creatinine has improved this admission from 8.54 to 4.65 and is trending down. Patient has excellent urine output. We will continue with gentle IV hydration per nephrology's recommendations. No indication for renal replacement therapy at this time. Qualifiers: Acute renal failure type: unspecified Chronic kidney disease stage: stage 3 (moderate) Qualified Code(s): N17.9 - Acute kidney failure, unspecified; N18.3 - Chronic kidney disease, stage 3 (moderate); N18.3 - Chronic kidney disease, stage 3 (moderate) (5) Hypertension Current Visit: Yes Status: Acute Assessment and plan: Blood pressure medicines have been held in the setting of septic shock. Blood pressure has been under good control since this is resolved and has had intermittent episodes of hypertension. We will continue to monitor as the patient remains persistently hypertensive we will restart home medications. Qualifiers: Hypertension type: essential hypertension Qualified Code(s): I10 - Essential (primary) hypertension (6) Diabetes Current Visit: No Status: Chronic Assessment and plan: Blood sugar has been under relatively good control although he has had episodes of hypoglycemia. We will continue with low-dose sliding scale insulin to avoid hypoglycemia. The monitor blood sugars and adjust based on readings. Qualifiers: Diabetes mellitus type: type 2 Diabetes mellitus complication status: with neurologic complications Diabetes mellitus complication detail: with polyneuropathy Diabetes mellitus terminal system operator insulin use: unspecified terminal system operator insulin use status Qualified Code(s): E11.42 - Type 2 diabetes mellitus with diabetic polyneuropathy - Subjective Interval history: Patient seen and examined at bedside. Patient has no complaints at this time. He reports that he still mildly short of breath but feels like he is improving. Still reports mild persistent cough. Denies fever, chills. He reports low appetite. - Constitutional Vitals: Temp Pulse Resp BP Pulse Ox 97.4 F L 74 16 126/75 93 04/18/17 11:41 04/18/17 11:41 04/18/17 11:41 04/18/17 11:41 04/18/17 11:41 General appearance: Present: A&O X 3, pleasant, no acute distress - Respiratory Respiratory exam: Present: rhonchi. Absent: rales, respiratory distress, wheezes, tachypnea - Cardiovascular Cardiovascular exam: Present: RRR. Absent: gallop, rubs, systolic murmur - GI/Abdominal GI/Abdominal exam: Present: normal bowel sounds, soft. Absent: distended, tenderness - Extremities Exam Extremities exam: Present: warm. Absent: pedal edema, tenderness Internal Medicine: Result - Labs CBC & Chem 7: 04/18/17 09:39 04/18/17 09:39 Labs: Short CBC 04/18/17 Range/Units 09:39 WBC 7.8 (4.3-11.1) K/mcL Hgb 8.6 L (12.9-16.9) g/dL Hct 25.9 L (37.5-50.1) % Plt Count 112 L (140-400) K/mcL Neutrophils # 7.0 (1.6-8.9) K/mcL BMP 04/18/17 09:39 Sodium 131 L Potassium 4.2 Chloride 97 L Carbon Dioxide 21 L BUN 64 H Creatinine 4.65 H Glucose 188 H Calcium 8.4 L Liver Function 04/18/17 Range/Units 09:39 Total Bilirubin 0.4 (0.3-1.0) mg/dL AST 13 (13-39) Units/L ALT 7 (7-52) Units/L Alkaline Phosphatase 102 (34-104) Units/L Albumin 2.4 L (3.5-5.7) g/dL - ABG Interpretation ABG results: ABG ABG pH 7.49 pH Units (7.32-7.45) H 04/16/17 04:42 ABG pCO2 38 mmHg (35-45) 04/16/17 04:42 ABG pO2 82 mmHg (85-104) L 04/16/17 04:42 ABG O2 Saturation 97 % (95-98) 04/16/17 04:42 PT/INR, D-dimer PT 10.5 Seconds (9.4-12.1) 04/14/17 10:25 - VTE Documentation of Mechanical Device: Intermittent pneumatic compression device Consult Discharge Plan - Plan Referrals: Cecil Carter MD [Primary Care Provider] - <Tanner Steward H - Last Filed: 04/18/17 15:02> Date of Encounter: 04/18/17 - Constitutional Vitals: Temp Pulse Resp BP Pulse Ox 97.4 F L 74 16 126/75 93 04/18/17 11:41 04/18/17 11:41 04/18/17 11:41 04/18/17 11:41 04/18/17 11:41 Internal Medicine: Result - Labs CBC & Chem 7: 04/18/17 09:39 04/18/17 09:39 Labs: Short CBC 04/18/17 Range/Units 09:39 WBC 7.8 (4.3-11.1) K/mcL Hgb 8.6 L (12.9-16.9) g/dL Hct 25.9 L (37.5-50.1) % Plt Count 112 L (140-400) K/mcL Neutrophils # 7.0 (1.6-8.9) K/mcL BMP 04/18/17 09:39 Sodium 131 L Potassium 4.2 Chloride 97 L Carbon Dioxide 21 L BUN 64 H Creatinine 4.65 H Glucose 188 H Calcium 8.4 L Liver Function 04/18/17 Range/Units 09:39 Total Bilirubin 0.4 (0.3-1.0) mg/dL AST 13 (13-39) Units/L ALT 7 (7-52) Units/L Alkaline Phosphatase 102 (34-104) Units/L Albumin 2.4 L (3.5-5.7) g/dL - ABG Interpretation ABG results: ABG ABG pH 7.49 pH Units (7.32-7.45) H 04/16/17 04:42 ABG pCO2 38 mmHg (35-45) 04/16/17 04:42 ABG pO2 82 mmHg (85-104) L 04/16/17 04:42 ABG O2 Saturation 97 % (95-98) 04/16/17 04:42 PT/INR, D-dimer PT 10.5 Seconds (9.4-12.1) 04/14/17 10:25 - Attending Attestation await final sputum culture Continue Rocephin, continue vancomycin I examined this patient and my medical decision-making was reviewed with the Resident Physician. I agree with the documented findings, disposition and treatment plan as described except to the extent set forth below.
[2017-04-18] MEDS: Insulin LISPRO 300 UNITS/3 ML VIAL SQ SCH ×3 (16:52→21:01)
[2017-04-18] MEDS: cefTRIAXone 2,000 MG in Water for inj. (sterile) 20 ML 20 ML IVP SCH (18:40)
[2017-04-19] MEDS ORDERED: Vancomycin 500 MG in 0.9 % Sodium Chloride Mini Bag 100 ML IVPB ONE (04:00)
[2017-04-19] MEDS: *HR* Heparin 5,000 UNIT/ML VIAL SQ SCH ×2 (05:13→19:08)
[2017-04-19 08:49] LABS: Albumin 2.1 g/dL (3.5-5.7); Albumin/Globulin Ratio 0.9 (1.1-2.2); Bilirubin,Total 0.3 mg/dL (0.3-1.0); Calcium 8.4 mg/dL (8.6-10.3); Globulin 2.3 g/dL (2.4-3.5); Potassium 3.9 mEq/L (3.5-5.1); Total Protein 4.4 g/dL (6.4-8.9)
--- NOTE | 2017-04-19 08:59 | Internal Med Progress Note ---
<Deyanira Nunez - Last Filed: 04/19/17 09:55> Date of Encounter: 04/19/17 Time of Encounter: 08:57 - Assessment and plan (1) Respiratory failure with hypoxia Current Visit: Yes Status: Acute Assessment and plan: Secondary to MRSA pneumonia. Patient was successfully liberated from mechanical ventilation and tolerating nasal cannula oxygen at 4-5 L and BiPAP intermittently. Continue oxygen supplementation and wean O2 to maintain saturation above 90%. Current oxygen saturation and 97% with 4 L of nasal cannula. Qualifiers: Chronicity: acute Qualified Code(s): J96.01 - Acute respiratory failure with hypoxia (2) Septic shock Current Visit: Yes Status: Resolved Assessment and plan: Secondary to MRSA pneumonia. Resolved at this time. (3) MRSA pneumonia Current Visit: Yes Status: Acute Assessment and plan: Sputum culture is positive for MRSA and Proteus Mirabilis sensitive to ceftriaxone. Patient appears to be clinically improving. Continue vancomycin Day 6 with pharmacy assisting in dosing and Day 6 Rocephin 2 g every 24 hours. Blood cultures are preliminarily negative. Qualifiers: Laterality: bilateral Lung location: unspecified part of lung Qualified Code(s): J15.212 - Pneumonia due to Methicillin resistant Staphylococcus aureus (4) Quvsx-jc-xkbmnlv kidney injury Current Visit: No Status: Acute Assessment and plan: KARI on CKD stage III. Acute worsening of his renal function is likely related to hypoperfusion setting of septic shock. Baseline appears to be 1.8-2. However he did have another recent episode of a cat with a creatinine as high as 9.3 at the end of January 2017 so his baseline may be worsening. Creatinine has improved this admission from 8.54 to 4.65 and is trending down. Patient has excellent urine output. We will continue with gentle IV hydration per nephrology's recommendations. No indication for renal replacement therapy at this time. Cr today us 4.54 Qualifiers: Acute renal failure type: unspecified Chronic kidney disease stage: stage 3 (moderate) Qualified Code(s): N17.9 - Acute kidney failure, unspecified; N18.3 - Chronic kidney disease, stage 3 (moderate); N18.3 - Chronic kidney disease, stage 3 (moderate) (5) HTN (hypertension) Current Visit: No Status: Chronic Assessment and plan: Blood pressure medicines have been held in the setting of septic shock. Blood pressure has been under good control since this is resolved and has had intermittent episodes of hypertension. We will continue to monitor as the patient remains persistently hypertensive we will restart home medications. Qualifiers: Hypertension type: renovascular hypertension Qualified Code(s): I15.0 - Renovascular hypertension (6) Diabetes Current Visit: No Status: Chronic Assessment and plan: Blood sugar has been under relatively good control although he has had episodes of hypoglycemia. We will continue with low-dose sliding scale insulin to avoid hypoglycemia. Continue to monitor blood sugars and adjust based on readings. Qualifiers: Diabetes mellitus type: type 2 Diabetes mellitus complication status: with neurologic complications Diabetes mellitus complication detail: with polyneuropathy Diabetes mellitus rn long term care insulin use: unspecified rn long term care insulin use status Qualified Code(s): E11.42 - Type 2 diabetes mellitus with diabetic polyneuropathy - Time Spent With Patient Greater than 35 minutes - Subjective Interval history: The patient was seen and evaluated at beside this morning. A student nurse was at bedside feeding the patient breakfast this morning. Patient is awake and alert, afebrile, and appears in no acute distress. Patient has no complaints at this time. He admits he has some difficulty breathing and is mildly short of breath. However, he admits he feels like he is improving. The patient denies any fevers, headaches, vision changes, chest pain, abdominal pain, numbness and tingling, and any weaknesses. - Constitutional Vitals: Temp Pulse Resp BP Pulse Ox 97.8 F 79 16 87/44 97 04/19/17 08:03 04/19/17 08:03 04/19/17 08:03 04/19/17 08:03 04/19/17 08:03 General appearance: Present: A&O X 3, pleasant, no acute distress - Eye Eye exam: Present: PERRL, conjuntiva pink, sclera anicteric Pupils: Present: PERRL - ENT ENT exam: Present: mucous membranes dry - Respiratory Respiratory exam: Present: decreased breath sounds, rhonchi. Absent: accessory muscle use, rales, respiratory distress, wheezes - Cardiovascular Cardiovascular exam: Present: RRR, +S1, +S2. Absent: diastolic murmur, gallop, rubs, systolic murmur - GI/Abdominal GI/Abdominal exam: Present: normal bowel sounds, soft, no peritoneal signs. Absent: distended, tenderness - Extremities Exam Extremities exam: Present: pedal edema (Patient edema present on the right foot. ), warm, radial pulses palpable and symmetrical. Absent: calf tenderness, cyanotic, tenderness Additional comments: The right lower extremity appears more muscular than the left lower extremity. the left lower extremity appears to be atrophied. 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 - Neurological Exam Neurological exam: Present: oriented X3. Absent: pronater drift, facial droop, speech deficit - Skin Skin exam: Present: dry, intact Internal Medicine: Result - Labs CBC & Chem 7: 04/18/17 09:39 04/19/17 06:12 Labs: Short CBC 04/18/17 Range/Units 09:39 WBC 7.8 (4.3-11.1) K/mcL Hgb 8.6 L (12.9-16.9) g/dL Hct 25.9 L (37.5-50.1) % Plt Count 112 L (140-400) K/mcL Neutrophils # 7.0 (1.6-8.9) K/mcL BMP 04/18/17 04/19/17 09:39 06:12 Sodium 131 L 134 L Potassium 4.2 3.9 Chloride 97 L 99 Carbon Dioxide 21 L 11 L BUN 64 H 64 H Creatinine 4.65 H 4.54 H Glucose 188 H 236 H Calcium 8.4 L 8.4 L Liver Function 04/18/17 04/19/17 Range/Units 09:39 06:12 Total Bilirubin 0.4 0.3 (0.3-1.0) mg/dL AST 13 9 L (13-39) Units/L ALT 7 6 L (7-52) Units/L Alkaline Phosphatase 102 100 (34-104) Units/L Albumin 2.4 L 2.1 L (3.5-5.7) g/dL - ABG Interpretation ABG results: ABG ABG pH 7.49 pH Units (7.32-7.45) H 04/16/17 04:42 ABG pCO2 38 mmHg (35-45) 04/16/17 04:42 ABG pO2 82 mmHg (85-104) L 04/16/17 04:42 ABG O2 Saturation 97 % (95-98) 04/16/17 04:42 PT/INR, D-dimer PT 10.5 Seconds (9.4-12.1) 04/14/17 10:25 - VTE Documentation of Mechanical Device: Intermittent pneumatic compression device Consult Discharge Plan - Plan Referrals: Cecil Carter MD [Primary Care Provider] - <Tanner Stweard H - Last Filed: 04/19/17 13:32> Date of Encounter: 04/19/17 - Constitutional Vitals: Temp Pulse Resp BP Pulse Ox 97.4 F L 67 16 102/61 99 04/19/17 11:24 04/19/17 13:13 04/19/17 11:24 04/19/17 13:13 04/19/17 11:24 Internal Medicine: Result - Labs CBC & Chem 7: 04/18/17 09:39 04/19/17 06:12 Labs: BMP 04/19/17 06:12 Sodium 134 L Potassium 3.9 Chloride 99 Carbon Dioxide 11 L BUN 64 H Creatinine 4.54 H Glucose 236 H Calcium 8.4 L Liver Function 04/19/17 Range/Units 06:12 Total Bilirubin 0.3 (0.3-1.0) mg/dL AST 9 L (13-39) Units/L ALT 6 L (7-52) Units/L Alkaline Phosphatase 100 (34-104) Units/L Albumin 2.1 L (3.5-5.7) g/dL - ABG Interpretation ABG results: ABG ABG pH 7.49 pH Units (7.32-7.45) H 04/16/17 04:42 ABG pCO2 38 mmHg (35-45) 04/16/17 04:42 ABG pO2 82 mmHg (85-104) L 04/16/17 04:42 ABG O2 Saturation 97 % (95-98) 04/16/17 04:42 PT/INR, D-dimer PT 10.5 Seconds (9.4-12.1) 04/14/17 10:25 - Attending Attestation Acute hypoxic respiratory failure secondary to septic shock due to MRSA and Proteus pneumonia, also Proteus UTI Continue Rocephin and vancomycin She will need to be treated for at least 2-3 weeks of a cephalosporin due to Proteus UTI Physical therapy and occupational therapy consult I examined this patient and my medical decision-making was reviewed with the Resident Physician. I agree with the documented findings, disposition and treatment plan as described except to the extent set forth below.
[2017-04-19] MEDS: Insulin LISPRO 300 UNITS/3 ML VIAL SQ SCH ×4 (09:01→20:59)
[2017-04-19] MEDS ORDERED: 0.9 % Sodium Chloride 500 ML IVC ONE (11:32)
--- NOTE | 2017-04-19 12:22 | Nephrology Progress Note ---
Date of Encounter: 04/19/17 Time of Encounter: 12:00 - Assessment and Plan (1) Hxbhm-uo-hguleub kidney injury Current Visit: No Status: Acute Renal fct improving. Creat 4.54. Documented urine output 625cc. Palliative care consult. Will continue to monitor, avoid nephrotoxins, I&O's. Qualifiers: Acute renal failure type: unspecified Chronic kidney disease stage: stage 3 (moderate) Qualified Code(s): N17.9 - Acute kidney failure, unspecified; N18.3 - Chronic kidney disease, stage 3 (moderate); N18.3 - Chronic kidney disease, stage 3 (moderate) (2) KARI (acute kidney injury) Current Visit: No Status: Acute (3) Recurrent UTI (urinary tract infection) Current Visit: No Status: Acute Subjective Principal diagnosis: Sepsis Interval history: Laying quietly in bed. States feels okay, no appetite. Discussed with patient about PEG tube placement for nutritional support. Adament did not want. Offered suggestion of Palliative care consult. He said that would be okay tomorrow but did not want them to see him today, "not a good day." Nursing giving IV fluid bolus for BP support. Objective - Vital Signs Vital signs: Vital Signs Temp Pulse Resp BP Pulse Ox 04/19/17 11:24 97.4 F L 70 16 81/37 99 04/19/17 08:03 97.8 F 79 16 87/44 97 04/19/17 04:18 98.4 F 83 18 96/57 95 04/18/17 23:54 97.8 F 83 18 109/65 92 04/18/17 19:58 97.9 F 76 18 97/60 90 04/18/17 15:40 97.4 F L 80 18 124/71 90 Intake and Output 04/18/17 04/19/17 04/19/17 23:59 07:59 15:59 Intake Total 1000 / 1000 0 / 0 Output Total 300 / 300 0 / 0 Balance 700 / 700 0 / 0 0 / 0 Intake: IV Fluids 1000 / 1000 0.9 % Sodium Chloride 1,000 ML 1000 / 1000 @ 75 mls/hr IVC .[id number] [facility] Rx #:[id number] Oral 0 / 0 0 / 0 Output: Urine 0 / 0 Catheter 300 / 300 Other: Blood Glucose* 213 212 - General Appearance General appearance: Present: chronically ill, frail EENT: Present: mucous membranes moist Neck: Present: no JVD Respiratory: Present: clear Cardiology: Present: regular rate, regular rhythm Additional Comments: edema RLE. Gastrointestinal: Present: normoactive bowel sounds, no tenderness Integumentary: Present: warm and dry Neurologic: Present: alert and oriented x3 - Lab 04/18/17 09:39 04/19/17 06:12 Most recent lab results ABG pH 7.49 pH Units (7.32-7.45) H 04/16/17 04:42 ABG pCO2 38 mmHg (35-45) 04/16/17 04:42 ABG pO2 82 mmHg (85-104) L 04/16/17 04:42 ABG HCO3 29 mEq/L (21-27) H 04/16/17 04:42 ABG O2 Saturation 97 % (95-98) 04/16/17 04:42 Calcium 8.4 mg/dL (8.6-10.3) L 04/19/17 06:12 Magnesium 2.1 mg/dL (1.6-2.6) 04/17/17 05:14 - VTE Documentation of Mechanical Device: Intermittent pneumatic compression device Consult Discharge Plan - Plan Referrals: Cecil Carter MD [Primary Care Provider] -
[2017-04-19] MEDS: cefTRIAXone 2,000 MG in Water for inj. (sterile) 20 ML 20 ML IVP SCH (14:52)
[2017-04-19] MEDS: 0.9 % Sodium Chloride 1,000 ML IVC SCH (14:53)
[2017-04-19] MEDS: Vancomycin Oral Soln 250 MG/5 ML UDC PO SCH (20:33)
[2017-04-20 04:52] LABS: Basophils % 0.2 %; Eosinophils # 0.3 K/mcL (0.0-0.6); Eosinophils % 4.5 %; Hematocrit 22.2 % (37.5-50.1); Hemoglobin 7.1 g/dL (12.9-16.9); Immature Granulocytes % 0.8 % (0-4); Lymphocytes # 0.4 K/mcL (0.6-4.6); Lymphocytes % 6.3 %; Mean Corpuscular Volume 87.4 fL (83.0-100.0); Mean Platelet Volume 10.8 fL (9.4-12.4); Monocytes # 0.3 K/mcL (0.0-1.3); Monocytes % 5.3 %; Nucleated Red Blood Cells 0.6 /100 WBC (0); Red Blood Count 2.54 M/mcL (4.19-5.50); Red Cell Distribution Width 15.3 % (11.5-14.5); Segmented Neutrophils % 82.9 %
[2017-04-20 04:53] LABS: Neutrophils # 5.1 K/mcL (1.6-8.9)
[2017-04-20 04:54] LABS: Platelet Count 94 K/mcL (140-400)
[2017-04-20 05:10] LABS: Albumin 2.1 g/dL (3.5-5.7); Bilirubin,Total 0.2 mg/dL (0.3-1.0); Calcium 8.4 mg/dL (8.6-10.3); Globulin 2.2 g/dL (2.4-3.5); Potassium 3.5 mEq/L (3.5-5.1); Total Protein 4.3 g/dL (6.4-8.9)
[2017-04-20] MEDS: *HR* Heparin 5,000 UNIT/ML VIAL SQ SCH (06:08)
[2017-04-20] MEDS: 0.9 % Sodium Chloride 1,000 ML IVC SCH ×2 (06:08→22:16)
[2017-04-20] MEDS: Insulin LISPRO 300 UNITS/3 ML VIAL SQ SCH ×4 (08:31→21:59)
[2017-04-20] MEDS: Vancomycin Oral Soln 250 MG/5 ML UDC PO SCH ×4 (08:31→21:59)
--- NOTE | 2017-04-20 09:39 | Nephrology Progress Note ---
Date of Encounter: 04/20/17 Time of Encounter: 08:55 - Assessment and Plan (1) Ornbc-zr-wsrzuzx kidney injury Current Visit: No Status: Acute Renal fct slowly improving. Creat 4.45. Documented urine output 300cc. Palliative care consult. Will continue to monitor, avoid nephrotoxins, I&O's. Qualifiers: Acute renal failure type: unspecified Chronic kidney disease stage: stage 3 (moderate) Qualified Code(s): N17.9 - Acute kidney failure, unspecified; N18.3 - Chronic kidney disease, stage 3 (moderate); N18.3 - Chronic kidney disease, stage 3 (moderate) (2) KARI (acute kidney injury) Current Visit: No Status: Acute (3) Recurrent UTI (urinary tract infection) Current Visit: No Status: Acute Subjective Principal diagnosis: Sepsis Interval history: Laying quietly in bed. States feels okay, no appetite. Discussed with patient about PEG tube placement for nutritional support. Adament did not want. Objective - Vital Signs Vital signs: Vital Signs Temp Pulse Resp BP Pulse Ox 04/20/17 08:00 97.4 F L 60 14 136/78 98 04/20/17 03:39 13 106/64 90 04/20/17 03:30 97.5 F L 68 18 104/63 90 04/19/17 23:41 97.6 F 65 18 106/64 97 04/19/17 22:06 113/67 04/19/17 19:48 97.5 F L 61 18 94/51 98 04/19/17 14:45 97.4 F L 74 14 97/44 94 04/19/17 13:13 67 102/61 04/19/17 11:24 97.4 F L 70 16 81/37 99 Intake and Output 04/19/17 04/20/17 04/20/17 23:59 07:59 15:59 Intake Total 265 / 265 1025 / 1025 0 / 0 Output Total 300 / 300 100 / 100 100 / 100 Balance -35 / -35 925 / 925 -100 / -100 Intake: IV Fluids 1000 / 1000 0.9 % Sodium Chloride 1,000 ML 1000 / 1000 @ 75 mls/hr IVC .[id number] [facility] Rx #:[id number] Oral 265 / 265 25 / 25 0 / 0 Output: Catheter 300 / 300 100 / 100 100 / 100 Other: Meal Dinner Breakfast Percent of Meal Consumed 20% 5% Stool Size Moderate Stool Consistency formed Stool Characteristics Normal for Patient Stool Color Brown Weight 60.464 kg Blood Glucose* 140 278 Patient Weight 04/20/17 23:59 Weight 60.464 kg - General Appearance General appearance: Present: chronically ill, frail EENT: Present: mucous membranes moist Neck: Present: no JVD Respiratory: Present: wheezing Cardiology: Present: regular rate, regular rhythm Gastrointestinal: Present: normoactive bowel sounds, no tenderness Integumentary: Present: warm and dry Psychiatric: Present: mood/affect appropriate, cooperative - Lab 04/20/17 04:33 04/20/17 04:33 Most recent lab results ABG pH 7.49 pH Units (7.32-7.45) H 04/16/17 04:42 ABG pCO2 38 mmHg (35-45) 04/16/17 04:42 ABG pO2 82 mmHg (85-104) L 04/16/17 04:42 ABG HCO3 29 mEq/L (21-27) H 04/16/17 04:42 ABG O2 Saturation 97 % (95-98) 04/16/17 04:42 Calcium 8.4 mg/dL (8.6-10.3) L 04/20/17 04:33 Magnesium 2.1 mg/dL (1.6-2.6) 04/17/17 05:14 - VTE Documentation of Mechanical Device: Intermittent pneumatic compression device Consult Discharge Plan - Plan Referrals: Cecil Carter MD [Primary Care Provider] -
--- NOTE | 2017-04-20 11:48 | Internal Med Progress Note ---
<Deyanira Nunez - Last Filed: 04/20/17 11:46> Date of Encounter: 04/20/17 Time of Encounter: 09:00 - Assessment and plan (1) Respiratory failure with hypoxia Current Visit: Yes Status: Acute Assessment and plan: Secondary to MRSA pneumonia. Patient was successfully liberated from mechanical ventilation and tolerating nasal cannula oxygen at 4-5 L and BiPAP intermittently. Continue oxygen supplementation and wean O2 to maintain saturation above 90%. Current oxygen saturation and 90% with 12 L of high flow oxygen. Teenagers dated the patient became hypoxic without his BiPAP. He dropped down to 78% on room air. Oxygen saturation improvement BiPAP. Continue to monitor the patient closely. Qualifiers: Chronicity: acute Qualified Code(s): J96.01 - Acute respiratory failure with hypoxia (2) Septic shock Current Visit: Yes Status: Resolved Assessment and plan: Secondary to MRSA pneumonia. Resolved at this time. (3) MRSA pneumonia Current Visit: Yes Status: Acute Assessment and plan: Sputum culture is positive for MRSA and Proteus Mirabilis sensitive to ceftriaxone. Continue vancomycin Day 7 with pharmacy assisting in dosing and Day 7 Rocephin 2 g every 24 hours. Blood cultures are preliminarily negative. Will consult speech therapy for a swallowing evaluation for concerns of possible aspiration. Qualifiers: Laterality: bilateral Lung location: unspecified part of lung Qualified Code(s): J15.212 - Pneumonia due to Methicillin resistant Staphylococcus aureus (4) Ysfwf-[id number]-uozwjbb kidney injury Current Visit: No Status: Acute Assessment and plan: KARI on CKD stage III. Acute worsening of his renal function is likely related to hypoperfusion setting of septic shock. Baseline appears to be 1.8-2. However he did have another recent episode of a cat with a creatinine as high as 9.3 at the end of January 2017 so his baseline may be worsening. Creatinine has improved this admission from 8.54 to 4.65 and is trending down. Patient has excellent urine output. We will continue with gentle IV hydration per nephrology's recommendations. No indication for renal replacement therapy at this time. Cr today us 4.45. Per documentation, nephrology Place a palliative consult. Qualifiers: Acute renal failure type: unspecified Chronic kidney disease stage: stage 3 (moderate) Qualified Code(s): N17.9 - Acute kidney failure, unspecified; N18.3 - Chronic kidney disease, stage 3 (moderate); N18.3 - Chronic kidney disease, stage 3 (moderate) (5) HTN (hypertension) Current Visit: No Status: Chronic Assessment and plan: Blood pressure medicines have been held in the setting of septic shock. Blood pressure has been under good control since this is resolved and has had intermittent episodes of hypertension. We will continue to monitor as the patient remains persistently hypertensive we will restart home medications. Qualifiers: Hypertension type: renovascular hypertension Qualified Code(s): I15.0 - Renovascular hypertension (6) Diabetes Current Visit: No Status: Chronic Assessment and plan: Blood sugar has been under relatively good control although he has had episodes of hypoglycemia. We will continue with low-dose sliding scale insulin to avoid hypoglycemia. Continue to monitor blood sugars and adjust based on readings. Qualifiers: Diabetes mellitus type: type 2 Diabetes mellitus complication status: with neurologic complications Diabetes mellitus complication detail: with polyneuropathy Diabetes mellitus terminal superintendent insulin use: unspecified group home insulin use status Qualified Code(s): E11.42 - Type 2 diabetes mellitus with diabetic polyneuropathy (7) C. difficile diarrhea Current Visit: Yes Status: Acute Assessment and plan: Nation began having diarrhea without any blood overnight. Stool was tested CDF positive. We will begin patient on Day 1 of oral vancomycin 125 mg QID. - Subjective Interval history: The patient was seen and evaluated at beside this morning. CONSTRUCTION QUALITY CONTROL MANAGER was at bedside feeding the patient breakfast this morning. Patient is awake and alert, afebrile, and appears in no acute distress. Patient has no complaints at this time. He admits he has some difficulty breathing and is mildly short of breath. He is currently saturated 90% with 12 L of high flow of oxygen. He admits he feels like he is improving but still feels weak. The patient denies any fevers, headaches, vision changes, chest pain, abdominal pain, numbness and tingling. - Constitutional Vitals: Temp Pulse Resp BP Pulse Ox 97.4 F L 60 14 136/78 98 04/20/17 08:00 04/20/17 08:00 04/20/17 08:00 04/20/17 08:00 04/20/17 08:00 General appearance: Present: A&O X 3, pleasant, no acute distress - Eye Eye exam: Present: PERRL, conjuntiva pink, sclera anicteric Pupils: Present: PERRL - ENT ENT exam: Present: mucous membranes dry - Neck Neck exam general surgery: Present: supple, trachea midline. Absent: lymphadenopathy - Respiratory Respiratory exam: Present: decreased breath sounds, rhonchi. Absent: respiratory distress, wheezes - Cardiovascular Cardiovascular exam: Present: RRR, +S1, +S2. Absent: diastolic murmur, gallop, rubs, systolic murmur - GI/Abdominal GI/Abdominal exam: Present: normal bowel sounds, soft, no peritoneal signs. Absent: distended, tenderness - Extremities Exam Extremities exam: Present: pedal edema (Bilateral pedal edema. +2 pitting bilaterally), warm, radial pulses palpable and symmetrical. Absent: calf tenderness, cyanotic Additional comments: The right lower extremity appears more muscular than the left lower extremity. The left lower extremity appears to be atrophied. 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 - Neurological Exam Neurological exam: Present: alert, oriented X3, no focal deficits. Absent: altered, pronater drift, facial droop, speech deficit - Skin Skin exam: Present: dry, intact Internal Medicine: Result - Labs CBC & Chem 7: 04/20/17 04:33 04/20/17 04:33 Labs: Short CBC 04/20/17 Range/Units 04:33 WBC 6.2 (4.3-11.1) K/mcL Hgb 7.1 L D (12.9-16.9) g/dL Hct 22.2 L (37.5-50.1) % Plt Count 94 L (140-400) K/mcL Neutrophils # 5.1 (1.6-8.9) K/mcL BMP 04/20/17 04:33 Sodium 133 L Potassium 3.5 Chloride 102 Carbon Dioxide 19 L BUN 62 H Creatinine 4.45 H Glucose 266 H Calcium 8.4 L Liver Function 04/20/17 Range/Units 04:33 Total Bilirubin 0.2 L (0.3-1.0) mg/dL AST 9 L (13-39) Units/L ALT 5 L (7-52) Units/L Alkaline Phosphatase 89 (34-104) Units/L Albumin 2.1 L (3.5-5.7) g/dL - ABG Interpretation ABG results: ABG ABG pH 7.49 pH Units (7.32-7.45) H 04/16/17 04:42 ABG pCO2 38 mmHg (35-45) 04/16/17 04:42 ABG pO2 82 mmHg (85-104) L 04/16/17 04:42 ABG O2 Saturation 97 % (95-98) 04/16/17 04:42 PT/INR, D-dimer PT 10.5 Seconds (9.4-12.1) 04/14/17 10:25 - VTE Documentation of Mechanical Device: Intermittent pneumatic compression device Consult Discharge Plan - Plan Referrals: Cecil Carter MD [Primary Care Provider] - <Tanner Steward H - Last Filed: 04/20/17 14:49> Date of Encounter: 04/20/17 - Constitutional Vitals: Temp Pulse Resp BP Pulse Ox 98.3 F 64 15 124/69 96 04/20/17 12:05 04/20/17 12:05 04/20/17 12:05 04/20/17 12:05 04/20/17 12:05 Internal Medicine: Result - Labs CBC & Chem 7: 04/20/17 04:33 04/20/17 04:33 Labs: Short CBC 04/20/17 Range/Units 04:33 WBC 6.2 (4.3-11.1) K/mcL Hgb 7.1 L D (12.9-16.9) g/dL Hct 22.2 L (37.5-50.1) % Plt Count 94 L (140-400) K/mcL Neutrophils # 5.1 (1.6-8.9) K/mcL BMP 04/20/17 04:33 Sodium 133 L Potassium 3.5 Chloride 102 Carbon Dioxide 19 L BUN 62 H Creatinine 4.45 H Glucose 266 H Calcium 8.4 L Liver Function 04/20/17 Range/Units 04:33 Total Bilirubin 0.2 L (0.3-1.0) mg/dL AST 9 L (13-39) Units/L ALT 5 L (7-52) Units/L Alkaline Phosphatase 89 (34-104) Units/L Albumin 2.1 L (3.5-5.7) g/dL - ABG Interpretation ABG results: ABG ABG pH 7.49 pH Units (7.32-7.45) H 04/16/17 04:42 ABG pCO2 38 mmHg (35-45) 04/16/17 04:42 ABG pO2 82 mmHg (85-104) L 04/16/17 04:42 ABG O2 Saturation 97 % (95-98) 04/16/17 04:42 PT/INR, D-dimer PT 10.5 Seconds (9.4-12.1) 04/14/17 10:25 - Attending Attestation Acute anemia, possibly related to blood loss due to C. difficile colitis Ordered blood transfusion Continue oral vancomycin day 2, IV vancomycin day 7 to treat MRSA pneumonia Complete 2 weeks of Rocephin, day 7 to treat Proteus Severe debility with possible symptomatic anemia Monitor CBC and consider further transfusions Discontinue subcutaneous heparin, use sequential compression devices for DVT prophylaxis I examined this patient and my medical decision-making was reviewed with the Resident Physician. I agree with the documented findings, disposition and treatment plan as described except to the extent set forth below.
[2017-04-20] MEDS: cefTRIAXone 2,000 MG in Water for inj. (sterile) 20 ML 20 ML IVP SCH (13:09)
[2017-04-20] MEDS ORDERED: Acetaminophen 325 MG TABLET PO PRN (14:45)
--- NOTE | 2017-04-20 15:08 | Palliative - Consult Note ---
Date of Encounter: 04/20/17 Time of Encounter: 15:25 - Assessment and Plan (1) Counseling regarding advanced care planning and goals of care Current Visit: Yes Status: Acute Assessment and plan: Irvin TANG and I met with pt for goals of care discussion. He is correction resident of [facility] and they are holding his bed. He has Power of banking attorney in place, and son Davy is POA, however, pt is alert and oriented and can currently make his own medical decisions. Discussed current clinical status including repeated infections/sepsis, malnutrition, debility, and overall quality of life. Discussed goals of care. Discussed resuscitation at length, pt still desire FULL CODE. Patient continues to desire all aggressive care and states "do everything you can to keep me alive". " I want to be here for my grandchildren, do what you can to get me stronger". Thus far , he wants everything done, but has refused a PEG. Discussed at length the fact that he is refusing to eat more than a couple of bites for every meal, and without adequate nutrition, it is not possible for him to get stronger. He asked how a feeding tube was placed, and if it was a painful procedure, and we discussed at length. He wants to have tonight to think about feeding tube, he may want to discuss with his mother, and we will follow up with pt tomorrow on decision. (2) Physical deconditioning Current Visit: No Status: Acute Assessment and plan: Patient states he has not walked in over a year. PT has screen pt and documented not a candidate for therapy. (3) Urinary tract infection Current Visit: No Status: Resolved Qualifiers: Urinary tract infection type: site unspecified Hematuria presence: with hematuria Qualified Code(s): N39.0 - Urinary tract infection, site not specified; R31.9 - Hematuria, unspecified (4) MRSA pneumonia Current Visit: Yes Status: Acute Qualifiers: Laterality: bilateral Lung location: unspecified part of lung Qualified Code(s): J15.212 - Pneumonia due to Methicillin resistant Staphylococcus aureus Palliative-CN HPI - Data of Consult Requesting Physician: Derrick Pedro MD Primary Care Provider: Cecil Carter MD - Consult Narrative History of present illness: Mr. Neal is a 61 year old male with a long history of CKD, DM poorly controlled who was admitted with urosepsis. Patient has indwelling catheter r/ t obstruction and has had repeated infections. He is very debilitated and has been in correction care facility. Other medical problems include: ETOH cirrhosis , CVA, HTN, Hyperlipidemia, and he has had many hospitalizations for complications of his chronic illnesses. He was found to have MRSA pneumonia and was intubated and on ventilator the first few days of admission, but has since been successfully extubated and transferred to medical floor. Was found positive for C-Diff. He has still required use of bipap intermittently and utilized high flow oxygen. He has always insisted on full code status and aggressive care, however, he is now only eating a few bites of food per day, and progressively getting weaker. Sand Conditioner Machine has been following. Palliative care was consulted to assist with goals of care discussion with this chronically ill patient. Upon my visit, he is alert and oriented. Answer questions appropriately. No family present. He denies pain, states his breathing is improved somewhat. Still with poor appetite and cannot take more than a couple of bites of food at a time. CC: Derrick Pedro MD Past Med Surg Social Fam HX - Past Medical History Medical history: CVA, dementia, diabetes, hyperlipidemia, hypertension, renal disease, other Psychiatric history: depression, prior suicide attempt - Past Surgical History Surgical History: hip replacement, orthopedic, other, other - Social History Smoking Status: Never smoker Smokeless Tobacco Status: No Alcohol use: none Drug use: none - Family History Mother Living Status: Still Living Hx Family Cardiac Disorders: Yes (A-fib s/p pacemaker) Hx Family Endocrine Disorder: Yes (DM) Father Living Status: Hx Family Cardiac Disorders: Yes (heart disease) Hx Family Respiratory Disorders: No Hx Family Cancer: No Hx Family GI Disorders: No Hx Family Endocrine Disorder: No Hx Family Neuromuscular Disorders: No Hx Family Neurologic Disorders: No Hx Family HEENT Disorders: No Hx Family Autoimmune Disorders: No Brother Living Status: Hx Family Cardiac Disorders: Yes (MA) Hx Family Endocrine Disorder: Yes (DM) Medications and Allergies Cyclosporine [Restasis] 1 drop BOTH EYES BID 11/28/16 [History] Insulin LISPRO [HumaLOG] 0 unit SQ AD 11/28/16 [History] Loratadine [Allergy Relief] 10 mg PO DAILY PRN 11/28/16 [History] Sucralfate [Carafate] 1 gm PO TID #1 bottle 12/03/16 [Rx] DULoxetine [Cymbalta] 30 mg PO DAILY 02/15/17 [History] hydrALAZINE [HydrALAZINE] 25 mg PO Q8HR #90 tablet 03/29/17 [Rx] Amlodipine Besylate 10 mg PO DAILY 04/14/17 [History] Amoxicillin/Clavulanate [Augmentin] 500 mg PO BID 04/14/17 [History] Erythromycin OPTH Oint 1 appl OP HS 04/14/17 [History] Glucagon,Human Recombinant [Glucagen] 1 mg IM Q30MIN PRN 04/14/17 [History] Mirtazapine [Remeron] 30 mg PO HS 04/14/17 [History] Omeprazole [PriLOSEC] 40 mg PO BID 04/14/17 [History] Polyvinyl Alcohol [Artificial Tears] 1 drop BOTH EYES TID 04/14/17 [History] 3 Allergy/AdvReac Type Severity Reaction Status Date / Time aspirin Allergy Rash Verified 02/15/17 02:44 pseudoephedrine Allergy Rash Verified 02/15/17 [facility] AdvReac See Verified 04/14/17 11:30 Comments All systems: reviewed and no additional remarkable complaints except as stated ( generalized weakness, poor appetite, occasional nausea, shortness of breath) Palliative Care-Exam - Constitutional Vitals: Temp Pulse Resp BP Pulse Ox 98.3 F 64 15 124/69 96 04/20/17 12:05 04/20/17 12:05 04/20/17 12:05 04/20/17 12:05 04/20/17 12:05 General appearance: Present: disheveled, no acute distress - Head Head Exam: Present: normal inspection, normocephalic - Eye Eye exam: Present: normal appearance, PERRL - Respiratory Respiratory exam: Present: decreased breath sounds, CTAB - Cardiovascular Cardiovascular exam: Present: +S1, +S2 - GI/Abdominal Exam GI/Abdominal exam: Present: distended, normal bowel sounds, soft - Catheter Type: Urethral (Spears) - Extremities Exam Extremities exam: Present: normal capillary refill, normal inspection - Neurological Exam Neurological exam: Present: alert, oriented X3, strengths equal and symetr throughout Additional comments: generalized weakness, speech slightly slurred - Skin Skin exam: Present: dry, pallor, warm Internal Medicine - CN: Reslt - Labs CBC & Chem 7: 04/20/17 04:33 04/20/17 04:33 Labs: Short CBC 04/20/17 Range/Units 04:33 WBC 6.2 (4.3-11.1) K/mcL Hgb 7.1 L D (12.9-16.9) g/dL Hct 22.2 L (37.5-50.1) % Plt Count 94 L (140-400) K/mcL Neutrophils # 5.1 (1.6-8.9) K/mcL BMP 04/20/17 04:33 Sodium 133 L Potassium 3.5 Chloride 102 Carbon Dioxide 19 L BUN 62 H Creatinine 4.45 H Glucose 266 H Calcium 8.4 L Liver Function 04/20/17 Range/Units 04:33 Total Bilirubin 0.2 L (0.3-1.0) mg/dL AST 9 L (13-39) Units/L ALT 5 L (7-52) Units/L Alkaline Phosphatase 89 (34-104) Units/L Albumin 2.1 L (3.5-5.7) g/dL - ABG Interpretation ABG results: ABG ABG pH 7.49 pH Units (7.32-7.45) H 04/16/17 04:42 ABG pCO2 38 mmHg (35-45) 04/16/17 04:42 ABG pO2 82 mmHg (85-104) L 04/16/17 04:42 ABG O2 Saturation 97 % (95-98) 04/16/17 04:42 PT/INR, D-dimer PT 10.5 Seconds (9.4-12.1) 04/14/17 10:25 Consult Discharge Plan - Plan Referrals: Cecil Carter MD [Primary Care Provider] - Palliative Quality Palliative Quality: Screen for Code Status: Yes, Screen for Goals of Care: Yes, Screen for Pain: Yes, If Pain Regimen Started, Initiate Bowel Regimen: NA, Screen for Nausea/Vomitting: Yes Code Status: 04/16/17 17:20 CODE [Resuscitation Status: Active] [RES] Routine Comment: Resuscitation Status: Full Code
[2017-04-20] MEDS ORDERED: 0.9 % Sodium Chloride 250 ML ONE (16:05)
[2017-04-21 00:31] LABS: Hematocrit 25.8 % (37.5-50.1); Hemoglobin 8.3 g/dL (12.9-16.9); Mean Corpuscular HGB Conc 32.2 g/dL (31.6-35.5); Mean Corpuscular Hemoglobin 28.1 pg (28.0-33.3); Mean Corpuscular Volume 87.5 fL (83.0-100.0); Mean Platelet Volume 10.7 fL (9.4-12.4); Red Blood Count 2.95 M/mcL (4.19-5.50); Red Cell Distribution Width 15.1 % (11.5-14.5)
[2017-04-21 00:32] LABS: Platelet Count 94 K/mcL (140-400)
[2017-04-21 00:49] LABS: Calcium 8.7 mg/dL (8.6-10.3); Potassium 3.1 mEq/L (3.5-5.1)
--- NOTE | 2017-04-21 08:16 | Event Note ---
Date of Encounter: 04/21/17 Time of Encounter: 08:15 Went to follow up on discussion started by nurse practitioner yesterday. Patient is on BiPAP and I cannot understand his speech nor can I get him to answer me in a meaningful way that I can interpret. Took him off the BiPAP and so was not able to understand. It is clear from a discussion yesterday that he wishes to be a full code,'s also clear that he wants everything done however G- tube is obviously still an issue. I cannot tell from discussing with him if he had a discussion with his family that he desired. We will Continue to try.
[2017-04-21] MEDS: Vancomycin Oral Soln 250 MG/5 ML UDC PO SCH ×4 (08:54→22:15)
[2017-04-21] MEDS: Insulin LISPRO 300 UNITS/3 ML VIAL SQ SCH ×4 (08:55→22:16)
--- NOTE | 2017-04-21 08:55 | Nephrology Progress Note ---
Date of Encounter: 04/21/17 Time of Encounter: 08:30 - Assessment and Plan (1) [id number] kidney injury Current Visit: No Status: Acute Renal fct slowly improving. Creat 4.48. Plateaued. Will get stat renal US. Documented urine output 350cc. Palliative care consult appreciated. Will continue to monitor, avoid nephrotoxins, I&O's. Qualifiers: Acute renal failure type: unspecified Chronic kidney disease stage: stage 3 (moderate) Qualified Code(s): N17.9 - Acute kidney failure, unspecified; N18.3 - Chronic kidney disease, stage 3 (moderate); N18.3 - Chronic kidney disease, stage 3 (moderate) (2) KARI (acute kidney injury) Current Visit: No Status: Acute (3) Recurrent UTI (urinary tract infection) Current Visit: No Status: Acute Subjective Principal diagnosis: Sepsis Interval history: Laying quietly in bed. Discussed PEG feedings. "Whatever will last the longest. " will not give yes or no answer. Objective - Vital Signs Vital signs: Vital Signs Temp Pulse Resp BP Pulse Ox 04/21/17 08:30 98.9 F 82 20 137/71 100 04/21/17 04:05 16 93 04/21/17 04:00 97.0 F L 70 15 138/73 92 04/21/17 00:00 97.6 F 97 18 128/69 95 04/20/17 21:46 13 96 04/20/17 20:49 97.0 F L 82 16 108/61 97 04/20/17 18:42 26 93 04/20/17 18:26 98.1 F 73 16 95/54 92 04/20/17 16:30 97 F L 70 18 102/56 90 04/20/17 16:15 97.7 F 73 18 120/67 96 04/20/17 16:09 97.7 F 73 17 120/67 96 04/20/17 12:05 98.3 F 64 15 124/69 96 Intake and Output 04/20/17 04/21/17 04/21/17 23:59 07:59 15:59 Intake Total 1590 / 1590 Output Total 50 / 50 Balance 1540 / 1540 Intake: IV Fluids 1000 / 1000 0.9 % Sodium Chloride 1,000 ML 1000 / 1000 @ 75 mls/hr IVC .[id number] ALESSANDRA Rx #:[id number] Oral 240 / 240 Blood Product 350 / 350 Rbcs Leuko Poor As-1 Unit 350 / 350 [id number] Output: Catheter 50 / 50 Other: Meal Dinner Percent of Meal Consumed 25% Stool Size Large Smear Stool Consistency liquid Stool Characteristics Mucoid Stool Color Brown Brown # Bowel Movements 1 Blood Glucose* 306 195 - General Appearance General appearance: Present: chronically ill, frail EENT: Present: mucous membranes moist Neck: Present: no JVD Respiratory: Present: clear Cardiology: Present: no edema, regular rate, regular rhythm Gastrointestinal: Present: normoactive bowel sounds, no tenderness Integumentary: Present: warm and dry Psychiatric: Present: mood/affect appropriate, cooperative - Lab 04/21/17 00:18 04/21/17 00:18 Most recent lab results ABG pH 7.49 pH Units (7.32-7.45) H 04/16/17 04:42 ABG pCO2 38 mmHg (35-45) 04/16/17 04:42 ABG pO2 82 mmHg (85-104) L 04/16/17 04:42 ABG HCO3 29 mEq/L (21-27) H 04/16/17 04:42 ABG O2 Saturation 97 % (95-98) 04/16/17 04:42 Calcium 8.7 mg/dL (8.6-10.3) 04/21/17 00:18 Magnesium 2.1 mg/dL (1.6-2.6) 04/17/17 05:14 - VTE Documentation of Mechanical Device: Intermittent pneumatic compression device Consult Discharge Plan - Plan Referrals: Cecil Carter MD [Primary Care Provider] -
--- NOTE | 2017-04-21 10:00 | Internal Med Progress Note ---
Date of Encounter: 04/21/17 Time of Encounter: 09:58 - Assessment and plan (1) Acute metabolic encephalopathy Current Visit: No Status: Resolved Assessment and plan: Acute metabolic encephalopathy caused by septic shock due to MRSA pneumonia and Proteus UTI, worsened by C. difficile colitis Continue oral vancomycin day #3, IV vancomycin and Rocephin day #8 (2) Urinary tract infection Current Visit: No Status: Resolved Assessment and plan: Growing Proteus Continue Rocephin day 8 to complete at least 2 weeks to avoid kidney stone formation Qualifiers: Urinary tract infection type: site unspecified Hematuria presence: with hematuria Qualified Code(s): N39.0 - Urinary tract infection, site not specified; R31.9 - Hematuria, unspecified (3) C. difficile diarrhea Current Visit: Yes Status: Acute Assessment and plan: Continue oral vancomycin 125 mg QID Consider adding Flagyl (4) MRSA pneumonia Current Visit: Yes Status: Acute Assessment and plan: Sputum culture is positive for MRSA and Proteus Mirabilis sensitive to ceftriaxone. Continue vancomycin and Rocephin Using BIPAP Qualifiers: Laterality: bilateral Lung location: unspecified part of lung Qualified Code(s): J15.212 - Pneumonia due to Methicillin resistant Staphylococcus aureus (5) Respiratory failure with hypoxia Current Visit: Yes Status: Acute Assessment and plan: Secondary to MRSA pneumonia. Patient was successfully liberated from mechanical ventilation and tolerating nasal cannula oxygen at 4-5 L and BiPAP intermittently. Continue oxygen supplementation and wean O2 to maintain saturation above 90%. He dropped down to 78% on room air. Oxygen saturation improvement BiPAP. Qualifiers: Chronicity: acute Qualified Code(s): J96.01 - Acute respiratory failure with hypoxia (6) Septic shock Current Visit: Yes Status: Resolved Assessment and plan: Secondary to MRSA pneumonia. Resolved at this time. (7) Drgxt-go-xggqetr kidney injury Current Visit: No Status: Acute Assessment and plan: KARI on CKD stage III. Baseline appears to be 1.8-2. Creatinine has improved this admission from 8.54 , is trending down. Per documentation, nephrology Placed a palliative consult. Qualifiers: Acute renal failure type: unspecified Chronic kidney disease stage: stage 3 (moderate) Qualified Code(s): N17.9 - Acute kidney failure, unspecified; N18.3 - Chronic kidney disease, stage 3 (moderate); N18.3 - Chronic kidney disease, stage 3 (moderate) (8) Physical deconditioning Current Visit: No Status: Acute (9) CKD (chronic kidney disease) stage 3, GFR 30-59 ml/min Current Visit: No Status: Chronic (10) Cerebrovascular accident involving cerebellum Current Visit: No Status: Chronic (11) DM (diabetes mellitus), type 2 Current Visit: No Status: Chronic Assessment and plan: Insulin sliding scale Qualifiers: Diabetes mellitus complication status: with hypoglycemia Diabetes mellitus complication detail: without coma Diabetes mellitus intermediate insulin use: with watermaster use Qualified Code(s): E11.649 - Type 2 diabetes mellitus with hypoglycemia without coma; Z79.4 - medical terminologist (current) use of insulin (12) Acidosis, metabolic, with respiratory acidosis Current Visit: Yes Status: Acute Assessment and plan: Has resolved - Subjective Interval history: Feeling very weak, disoriented at times, denies any abdominal pain, feels short of breath, no fevers, no dysuria, no chest pain - Constitutional Vitals: Temp Pulse Resp BP Pulse Ox 98.9 F 82 20 137/71 100 04/21/17 08:30 04/21/17 08:30 04/21/17 08:30 04/21/17 08:30 04/21/17 08:30 General appearance: Present: cachectic, A&O X 3, pleasant, no acute distress - Head Head exam: Present: atraumatic, normocephalic - Eye Eye exam: Present: PERRL, conjuntiva pink, sclera anicteric Pupils: Present: PERRL - Neck Neck exam general surgery: Present: supple, trachea midline. Absent: lymphadenopathy - Respiratory Respiratory exam: Present: CTAB. Absent: accessory muscle use, rales, rhonchi, wheezes - Cardiovascular Cardiovascular exam: Present: RRR, +S1, +S2. Absent: diastolic murmur, gallop, rubs, systolic murmur - GI/Abdominal GI/Abdominal exam: Present: normal bowel sounds, soft, no peritoneal signs. Absent: distended, tenderness - Extremities Exam Extremities exam: Present: pedal edema (+2 pitting edema in both lower extremities), warm, radial pulses palpable and symmetrical. Absent: calf tenderness, cyanotic Additional comments: Generalized muscle atrophy - Neurological Exam Neurological exam: Present: CN II-XII intact, oriented X3, no focal deficits. Absent: pronater drift, facial droop, speech deficit - Skin Skin exam: Present: dry, intact Internal Medicine: Result - Labs CBC & Chem 7: 04/21/17 00:18 04/21/17 00:18 Labs: Short CBC 04/21/17 Range/Units 00:18 WBC 6.4 (4.3-11.1) K/mcL Hgb 8.3 L (12.9-16.9) g/dL Hct 25.8 L (37.5-50.1) % Plt Count 94 L (140-400) K/mcL BMP 04/21/17 00:18 Sodium 136 Potassium 3.1 L Chloride 105 Carbon Dioxide 18 L BUN 60 H Creatinine 4.48 H Glucose 246 H Calcium 8.7 - ABG Interpretation ABG results: ABG ABG pH 7.49 pH Units (7.32-7.45) H 04/16/17 04:42 ABG pCO2 38 mmHg (35-45) 04/16/17 04:42 ABG pO2 82 mmHg (85-104) L 04/16/17 04:42 ABG O2 Saturation 97 % (95-98) 04/16/17 04:42 PT/INR, D-dimer PT 10.5 Seconds (9.4-12.1) 04/14/17 10:25 - VTE Documentation of Mechanical Device: Intermittent pneumatic compression device Consult Discharge Plan - Plan Referrals: Cecil Carter MD [Primary Care Provider] -
[2017-04-21] MEDS: 0.9 % Sodium Chloride 1,000 ML IVC SCH (12:08)
[2017-04-21] MEDS: cefTRIAXone 2,000 MG in Water for inj. (sterile) 20 ML 20 ML IVP SCH (15:31)
[2017-04-22] MEDS: 0.9 % Sodium Chloride 1,000 ML IVC SCH (02:28)
[2017-04-22 06:52] LABS: Hematocrit 25.9 % (37.5-50.1); Hemoglobin 8.1 g/dL (12.9-16.9); Immature Platelets 4.6 % (1.1-6.1); Mean Corpuscular HGB Conc 31.3 g/dL (31.6-35.5); Mean Corpuscular Hemoglobin 27.8 pg (28.0-33.3); Mean Platelet Volume 11.4 fL (9.4-12.4); Red Blood Count 2.91 M/mcL (4.19-5.50); Red Cell Distribution Width 15.4 % (11.5-14.5)
[2017-04-22 07:10] LABS: Calcium 8.6 mg/dL (8.6-10.3)
--- NOTE | 2017-04-22 08:20 | Internal Med Progress Note ---
Date of Encounter: 04/22/17 Time of Encounter: 08:18 - Assessment and plan (1) Acute metabolic encephalopathy Current Visit: No Status: Resolved Assessment and plan: Acute metabolic encephalopathy caused by septic shock due to MRSA pneumonia and Proteus UTI, worsened by C. difficile colitis Continue oral vancomycin day #4, IV vancomycin and Rocephin day #9 Send another UA (2) Urinary tract infection Current Visit: No Status: Resolved Assessment and plan: Growing Proteus Continue Rocephin to complete at least 2 weeks to avoid kidney stone formation Qualifiers: Urinary tract infection type: site unspecified Hematuria presence: with hematuria Qualified Code(s): N39.0 - Urinary tract infection, site not specified; R31.9 - Hematuria, unspecified (3) C. difficile diarrhea Current Visit: Yes Status: Acute Assessment and plan: Continue oral vancomycin 125 mg QID Consider adding Flagyl (4) MRSA pneumonia Current Visit: Yes Status: Acute Assessment and plan: Sputum culture is positive for MRSA and Proteus Mirabilis sensitive to ceftriaxone. Continue vancomycin and Rocephin Using BIPAP Qualifiers: Laterality: bilateral Lung location: unspecified part of lung Qualified Code(s): J15.212 - Pneumonia due to Methicillin resistant Staphylococcus aureus (5) Respiratory failure with hypoxia Current Visit: Yes Status: Acute Assessment and plan: Secondary to MRSA pneumonia. Patient was successfully liberated from mechanical ventilation and tolerating nasal cannula oxygen at 4-5 L and BiPAP intermittently. Continue oxygen supplementation and wean O2 to maintain saturation above 90%. He dropped down to 78% on room air. Oxygen saturation improvement BiPAP. Qualifiers: Chronicity: acute Qualified Code(s): J96.01 - Acute respiratory failure with hypoxia (6) Septic shock Current Visit: Yes Status: Resolved Assessment and plan: Secondary to MRSA pneumonia. Resolved at this time. (7) Txbps-si-eavkekp kidney injury Current Visit: No Status: Acute Assessment and plan: KARI on CKD stage III. Baseline appears to be 1.8-2. Creatinine has improved this admission from 8.54 , is trending down. Per documentation, nephrology Placed a palliative consult. Qualifiers: Acute renal failure type: unspecified Chronic kidney disease stage: stage 3 (moderate) Qualified Code(s): N17.9 - Acute kidney failure, unspecified; N18.3 - Chronic kidney disease, stage 3 (moderate); N18.3 - Chronic kidney disease, stage 3 (moderate) (8) Physical deconditioning Current Visit: No Status: Acute (9) CKD (chronic kidney disease) stage 3, GFR 30-59 ml/min Current Visit: No Status: Chronic (10) Cerebrovascular accident involving cerebellum Current Visit: No Status: Chronic Assessment and plan: Hx of CVA, allergic to aspirin send stat CT head, may order MRI, echo and carotid U/S May start Plavix if no hemorrhage is found Neurolgy consult Unknown time where he was normal (11) DM (diabetes mellitus), type 2 Current Visit: No Status: Chronic Assessment and plan: Insulin sliding scale Qualifiers: Diabetes mellitus complication status: with hypoglycemia Diabetes mellitus complication detail: without coma Diabetes mellitus termite technician insulin use: with termite technician use Qualified Code(s): E11.649 - Type 2 diabetes mellitus with hypoglycemia without coma; Z79.4 - [facility] (current) use of insulin (12) Acidosis, metabolic, with respiratory acidosis Current Visit: Yes Status: Acute Assessment and plan: Has resolved - Subjective Interval history: Extremely weak, disoriented at times, dysarthric, unable to complete review of systems - Constitutional Vitals: Temp Pulse Resp BP Pulse Ox 97.9 F 89 16 133/78 100 04/22/17 07:37 04/22/17 07:37 04/22/17 07:37 04/22/17 07:37 04/22/17 07:37 General appearance: Present: cachectic, A&O X 2, pleasant, no acute distress Exam: - Head Head exam: Present: atraumatic, normocephalic - Eye Eye exam: Present: PERRL, conjuntiva pink, sclera anicteric Pupils: Present: PERRL - Neck Neck exam general surgery: Present: supple, trachea midline. Absent: lymphadenopathy - Respiratory Respiratory exam: Present: CTAB. Absent: accessory muscle use, rales, rhonchi, wheezes - Cardiovascular Cardiovascular exam: Present: RRR, +S1, +S2. Absent: diastolic murmur, gallop, rubs, systolic murmur - GI/Abdominal GI/Abdominal exam: Present: normal bowel sounds, soft, no peritoneal signs. Absent: distended, tenderness - Extremities Exam Extremities exam: Present: pedal edema (+2 pitting edema in both lower extremities), warm, radial pulses palpable and symmetrical. Absent: calf tenderness, cyanotic Additional comments: Generalized muscle atrophy Spears catheter in place - Neurological Exam Neurological exam: Present: CN II-XII intact, oriented X2, pronater drift, left facial droop, speech deficit, left eye ptosis , pupils reactive - Skin Skin exam: Present: dry, intact Internal Medicine: Result - Labs CBC & Chem 7: 04/22/17 06:17 04/22/17 06:17 Labs: Short CBC 04/22/17 Range/Units 06:17 WBC 6.9 (4.3-11.1) K/mcL Hgb 8.1 L (12.9-16.9) g/dL Hct 25.9 L (37.5-50.1) % Plt Count 86 L (140-400) K/mcL BMP 04/22/17 06:17 Sodium 139 Potassium 3.0 L Chloride 107 Carbon Dioxide 14 L BUN 58 H Creatinine 4.18 H Glucose 200 H Calcium 8.6 - ABG Interpretation ABG results: ABG ABG pH 7.49 pH Units (7.32-7.45) H 04/16/17 04:42 ABG pCO2 38 mmHg (35-45) 04/16/17 04:42 ABG pO2 82 mmHg (85-104) L 04/16/17 04:42 ABG O2 Saturation 97 % (95-98) 04/16/17 04:42 PT/INR, D-dimer PT 10.5 Seconds (9.4-12.1) 04/14/17 10:25 - Impressions Impressions Retroperitoneum Ultrasound 04/21/17 08:18 IMPRESSION: 1. Unremarkable bilateral renal ultrasound. 2. Thickened bladder wall which could be related to underlying infection. There may be debris noted within the bladder lumen. Correlation with urinalysis is recommended. 3. Left pleural effusion. D/ / 04/21/2017 15:33:46 Damion Goddard MD / dariusz Interpreting Provider: Damion Goddard MD - VTE Documentation of Mechanical Device: Intermittent pneumatic compression device Consult Discharge Plan - Plan Referrals: Cecil Carter MD [Primary Care Provider] -
--- NOTE | 2017-04-22 08:22 | Palliative Progress Note ---
Date of Encounter: 04/22/17 Time of Encounter: 07:20 - Assessment and plan (1) Dehydration Current Visit: No Status: Resolved Assessment and plan: Getting fluids, eating small amounts plan per hospitalist team At this time the patient is not responsive to verbal and unable to give me any information with regard to PEG tube. I did however place a call to his medical power of staff attorney, his son Enoc. Enoc feels that the patient would want to have a PEG tube placed. Patient's son will be in to see him probably around noon or 1:00 today. I did discuss with his father further, however in the absence of any further discussions with the patient medical power of staff attorney would favor a PEG tube placement. (2) Altered mental status Current Visit: No Status: Acute Assessment and plan: Multifactorial in nature, (3) UTI (urinary tract infection) Current Visit: No Status: Chronic Assessment and plan: The patient is on appropriate antibiotics and per hospitalist team Qualifiers: Urinary tract infection type: acute cystitis Hematuria presence: without hematuria Qualified Code(s): N30.00 - Acute cystitis without hematuria (4) Acute encephalopathy Current Visit: No Status: Acute Assessment and plan: Again multifactorial in nature but primarily infectious, he should not is definitely worse from a mental status standpoint today. (5) Severe protein-calorie malnutrition Current Visit: No Status: Chronic Assessment and plan: At this time the patient is not responsive to verbal and unable to give me any information with regard to PEG tube. I did however place a call to his medical power of staff attorney, his son Enoc. Enoc feels that the patient would want to have a PEG tube placed. Patient's son will be in to see him probably around noon or 1:00 today. I did discuss with his father further, however in the absence of any further discussions with the patient medical power of staff attorney would favor a PEG tube placement. (6) Counseling regarding advanced care planning and goals of care Current Visit: No Status: Acute Assessment and plan: Last known intent from patient is full code. She was unresponsive today. At this time the patient is not responsive to verbal and unable to give me any information with regard to PEG tube. I did however place a call to his medical power of staff attorney, his son Enoc. Enoc feels that the patient would want to have a PEG tube placed. Patient's son will be in to see him probably around noon or 1:00 today. I did discuss with his father further, however in the absence of any further discussions with the patient medical power of staff attorney would favor a PEG tube placement. In addition, son is medical power of staff attorney also agrees the patient would want to remain a full code. This is in alignment with previous discussions with the patient. - Time Spent With Patient Total time spent is greater than 50% in coordination of care (as documented) at patient's floor/unit and/or counseling patient: - Subjective Interval history: Unresponsive to verbal does appear comfortable - Constitutional Vitals: Abnormal lab results RBC 2.91 M/mcL (4.19-5.50) L 04/22/17 06:17 Hgb 8.1 g/dL (12.9-16.9) L 04/22/17 06:17 Hct 25.9 % (37.5-50.1) L 04/22/17 06:17 MCH 27.8 pg (28.0-33.3) L 04/22/17 06:17 MCHC 31.3 g/dL (31.6-35.5) L 04/22/17 06:17 RDW 15.4 % (11.5-14.5) H 04/22/17 06:17 Plt Count 86 K/mcL (140-400) L 04/22/17 06:17 Lymphocytes # 0.4 K/mcL (0.6-4.6) L 04/20/17 04:33 Nucleated RBCs/100 WBC 0.6 /100 WBC (0) H 04/20/17 04:33 Platelet Estimate Slight Decrease (Normal) L 04/16/17 04:40 Hypochromasia Present (Not Present) A 04/16/17 04:40 APTT 83.0 Seconds (26.0-36.0) H 04/14/17 10:25 ABG pH 7.49 pH Units (7.32-7.45) H 04/16/17 04:42 ABG pO2 82 mmHg (85-104) L 04/16/17 04:42 ABG HCO3 29 mEq/L (21-27) H 04/16/17 04:42 ABG Total CO2 30 mEq/L (20-26) H 04/16/17 04:42 ABG Base Excess 5 mEq/L (-2 to 3) H 04/16/17 04:42 Potassium 3.0 mEq/L (3.5-5.1) L 04/22/17 06:17 Carbon Dioxide 14 mEq/L (23-29) L 04/22/17 06:17 BUN 58 mg/dL (8-23) H 04/22/17 06:17 Creatinine 4.18 mg/dL (0.70-1.30) H 04/22/17 06:17 Est GFR ( Amer) 18 (> 60) L 04/22/17 06:17 Est GFR (Non-Af Amer) 15 (> 60) L 04/22/17 06:17 Glucose 200 mg/dL (70-105) H 04/22/17 06:17 POC Glucose 190 (58-89) H 04/22/17 07:28 Calculated Osmolality 310 (280-300) H 04/22/17 06:17 Total Bilirubin 0.2 mg/dL (0.3-1.0) L 04/20/17 04:33 AST 9 Units/L (13-39) L 04/20/17 04:33 ALT 5 Units/L (7-52) L 04/20/17 04:33 Serum Total Protein 4.3 g/dL (6.4-8.9) L 04/20/17 04:33 Albumin 2.1 g/dL (3.5-5.7) L 04/20/17 04:33 Globulin 2.2 g/dL (2.4-3.5) L 04/20/17 04:33 Albumin/Globulin Ratio 1.0 (1.1-2.2) L 04/20/17 04:33 Urine Clarity Turbid (Clear) A 04/14/17 10:30 Urine Protein >=300 mg/dL (Neg-Trace) H 04/14/17 10:30 Urine Ketones Trace mg/dL (Negative) H 04/14/17 10:30 Urine Blood Moderate (Negative) H 04/14/17 10:30 Ur Leukocyte Esterase Large (Negative) H 04/14/17 10:30 Urine Microscopic RBC TNTC per hpf (0-3) H 04/14/17 10:30 Urine Microscopic WBC TNTC per hpf (0-3) H 04/14/17 10:30 Ur Squamous Epith Cells Many per lpf (None-Few) H 04/14/17 10:30 Urine Bacteria Many per hpf (None-Few) H 04/14/17 10:30 General appearance: Present: no acute distress - Respiratory Respiratory exam: Present: decreased breath sounds (Not on BiPAP at this time) - Cardiovascular Cardiovascular exam: Present: RRR - GI/Abdominal GI/Abdominal exam: Present: normal bowel sounds, soft. Absent: tenderness - Neurological Exam Neurological exam: Present: altered - Psychiatric Psychiatric exam: Absent: agitated, anxious - Skin Skin exam: Present: dry, warm Palliative Quality Palliative Quality: Screen for Code Status: Yes, Screen for Goals of Care: Yes, Screen for Pain: Yes, If Pain Regimen Started, Initiate Bowel Regimen: NA, Screen for Nausea/Vomitting: Yes Code Status: 04/16/17 17:20 CODE [Resuscitation Status: Active] [RES] Routine Comment: Resuscitation Status: Full Code - Labs CBC & Chem 7: 04/22/17 06:17 04/22/17 06:17 Labs: Laboratory Results - last 24 hr 04/21/17 04/21/17 04/21/17 08:18 11:47 16:11 WBC RBC Hgb Hct MCV MCH MCHC RDW Plt Count MPV Immature Plt Fraction Sodium Potassium Chloride Carbon Dioxide BUN Creatinine Est GFR ( Amer) Est GFR (Non-Af Amer) BUN/Creatinine Ratio Glucose POC Glucose 195 H 165 H 43 L* Calculated Osmolality Calcium Random Vancomycin 04/21/17 04/21/17 04/21/17 16:12 16:55 17:16 WBC RBC Hgb Hct MCV MCH MCHC RDW Plt Count MPV Immature Plt Fraction Sodium Potassium Chloride Carbon Dioxide BUN Creatinine Est GFR ( Amer) Est GFR (Non-Af Amer) BUN/Creatinine Ratio Glucose POC Glucose 42 L* 78 Calculated Osmolality Calcium Random Vancomycin 16.5 04/21/17 04/22/17 04/22/17 19:46 00:29 06:17 WBC 6.9 RBC 2.91 L Hgb 8.1 L Hct 25.9 L MCV 89.0 MCH 27.8 L MCHC 31.3 L RDW 15.4 H Plt Count 86 L MPV 11.4 Immature Plt Fraction 4.6 Sodium Potassium Chloride Carbon Dioxide BUN Creatinine Est GFR ( Amer) Est GFR (Non-Af Amer) BUN/Creatinine Ratio Glucose POC Glucose 101 H 164 H Calculated Osmolality Calcium Random Vancomycin 04/22/17 04/22/17 04/22/17 06:17 06:17 07:28 WBC RBC Hgb Hct MCV MCH MCHC RDW Plt Count MPV Immature Plt Fraction Sodium 139 Potassium 3.0 L Chloride 107 Carbon Dioxide 14 L BUN 58 H Creatinine 4.18 H Est GFR ( Amer) 18 L Est GFR (Non-Af Amer) 15 L BUN/Creatinine Ratio 14 Glucose 200 H POC Glucose 190 H Calculated Osmolality 310 H Calcium 8.6 Random Vancomycin 15.5 - Impressions Impressions Retroperitoneum Ultrasound 04/21/17 08:18 IMPRESSION: 1. Unremarkable bilateral renal ultrasound. 2. Thickened bladder wall which could be related to underlying infection. There may be debris noted within the bladder lumen. Correlation with urinalysis is recommended. 3. Left pleural effusion. D/ : / 04/21/2017 15:33:46 Damion Goddard MD / dariusz Interpreting Provider: Damion Goddard MD - ABG Interpretation ABG results: ABG ABG pH 7.49 pH Units (7.32-7.45) H 04/16/17 04:42 ABG pCO2 38 mmHg (35-45) 04/16/17 04:42 ABG pO2 82 mmHg (85-104) L 04/16/17 04:42 ABG O2 Saturation 97 % (95-98) 04/16/17 04:42 PT/INR, D-dimer PT 10.5 Seconds (9.4-12.1) 04/14/17 10:25 Consult Discharge Plan - Plan Referrals: Cecil Carter MD [Primary Care Provider] -
--- NOTE | 2017-04-22 08:54 | Nephrology Progress Note ---
Date of Encounter: 04/22/17 Time of Encounter: 08:30 - Assessment and Plan (1) Rgbef-ap-byaswdt kidney injury Current Visit: No Status: Acute Renal fct slowly improving. Creat 4.18. Renal US, no obstructive uropathy.. Documented urine output 1000cc. Palliative care consult appreciated. States will have PEG placed for nutrition. Will continue to monitor, avoid nephrotoxins, I&O's. Qualifiers: Acute renal failure type: unspecified Chronic kidney disease stage: stage 3 (moderate) Qualified Code(s): N17.9 - Acute kidney failure, unspecified; N18.3 - Chronic kidney disease, stage 3 (moderate); N18.3 - Chronic kidney disease, stage 3 (moderate) (2) KARI (acute kidney injury) Current Visit: No Status: Acute (3) Recurrent UTI (urinary tract infection) Current Visit: No Status: Acute Subjective Principal diagnosis: Sepsis Interval history: Alert in bed. Nursing at bedside. Discussed his thoughts about PEG tube placement and tube feeds. States he is agreeable to this. Objective - Vital Signs Vital signs: Vital Signs Temp Pulse Resp BP Pulse Ox 04/22/17 07:37 97.9 F 89 16 133/78 100 04/22/17 03:59 97.9 F 90 16 171/92 97 04/22/17 00:35 97.7 F 83 18 161/83 99 04/21/17 20:07 98.4 F 75 17 123/66 89 04/21/17 16:22 97.9 F 67 18 136/68 94 04/21/17 11:44 98.3 F 71 20 153/88 99 Intake and Output 04/21/17 04/22/17 04/22/17 23:59 07:59 15:59 Intake Total 180 / 180 1000 / 1000 Output Total 0 / 0 550 / 550 Balance 180 / 180 450 / 450 Intake: IV Fluids 1000 / 1000 0.9 % Sodium Chloride 1,000 ML 1000 / 1000 @ 75 mls/hr IVC .[id number] [facility] Rx #:[id number] Oral 180 / 180 0 / 0 Output: Urine 0 / 0 Catheter 0 / 0 550 / 550 Other: Meal Dinner Percent of Meal Consumed 5% Stool Size Small Moderate Stool Consistency liquid loose liquid Stool Characteristics Long Barn Mucoid Stool Color Brown Brown Yellow # Bowel Movements 1 Blood Glucose* 101 190 - General Appearance General appearance: Present: chronically ill, frail EENT: Present: mucous membranes moist Neck: Present: JVD Respiratory: Present: clear Cardiology: Present: regular rate, regular rhythm Gastrointestinal: Present: normoactive bowel sounds, no tenderness Integumentary: Present: warm and dry Psychiatric: Present: mood/affect appropriate, cooperative - Lab 04/22/17 06:17 04/22/17 06:17 Most recent lab results ABG pH 7.49 pH Units (7.32-7.45) H 04/16/17 04:42 ABG pCO2 38 mmHg (35-45) 04/16/17 04:42 ABG pO2 82 mmHg (85-104) L 04/16/17 04:42 ABG HCO3 29 mEq/L (21-27) H 04/16/17 04:42 ABG O2 Saturation 97 % (95-98) 04/16/17 04:42 Calcium 8.6 mg/dL (8.6-10.3) 04/22/17 06:17 Magnesium 2.1 mg/dL (1.6-2.6) 04/17/17 05:14 - VTE Documentation of Mechanical Device: Intermittent pneumatic compression device Consult Discharge Plan - Plan Referrals: Cecil Carter MD [Primary Care Provider] -
[2017-04-22] MEDS: Insulin LISPRO 300 UNITS/3 ML VIAL SQ SCH ×4 (09:11→21:44)
[2017-04-22] MEDS: D5% in 0.45% NACL w KCl 10 MEQ/1,000 ML MLS IVC SCH (09:12)
[2017-04-22] MEDS: Vancomycin Oral Soln 250 MG/5 ML UDC PO SCH ×4 (09:13→21:43)
[2017-04-22 10:41] LABS: Bilirubin,Urine Negative (Negative); Blood,Urine Large (Negative); Clarity,Urine Turbid (Clear); Color,Urine Yellow (Yellow); Glucose,Urine (UA) Normal (Normal); Ketones,Urine Negative (Negative); Leukocyte Esterase,Urine Large (Negative); Nitrite,Urine Negative (Negative); Protein,Urine 100 mg/dL (Neg-Trace); Specific Gravity,Urine 1.016 (1.010-1.025); Urobilinogen,Urine Normal (Normal)
[2017-04-22 10:44] LABS: Bacteria,Urine None Seen per hpf (None-Few); Squamous Epithelial Cell,Urine Many per lpf (None-Few); WBC,Urine TNTC per hpf (0-3)
[2017-04-22 10:51] LABS: RBC,Urine TNTC per hpf (0-3)
[2017-04-22] MEDS: cefTRIAXone 2,000 MG in Water for inj. (sterile) 20 ML 20 ML IVP SCH (15:20)
--- NOTE | 2017-04-22 18:48 | Neurology - Consult Note ---
Date of Encounter: 04/22/17 Time of Encounter: 13:46 Assessment and Plan (1) Altered mental status Current Visit: No Status: Acute This is likely still medically related and it showed fluctuating pattern and usually associated with fluctuating level of alertness. At present time he appears wide awake and responsive and oriented and his mental function appear intact when he is less drowsy, Neurological examination showed no cranial nerve dysfunction, generalized predominantly diffuse proximal muscle weakness both upper and lower extremities, which likely complicated by his significant medical problems, anemia, deconditioning and ICU myopathy. I did not recognize significant focal neurological deficits. At this time, i would suggest continuing medical and supportive care and and monitoring his neurological status. Will not recommend more neurological testing. continue PT. Thank you very much for the consultation Total time spent on this patient is approximately 60 minutes Qualifiers: Altered mental status type: somnolence Qualified Code(s): R40.0 - Somnolence History of Present Illness Chief complaint: confusion and weakness HPI: Mr. Neal is a 61 year old male with medical history of recent ICU stay due to sepsis, pneumonia who is consulted regarding fluctuating mental status change and weakness. Patient was initially admitted on 04/14/2017 due to altered and mental status and signs of sepsis and hypotension. he was treated in the ICU for sepsis from MRSA, respiratory failure, metabolic acidosis and acute on chronic renal failure. Per medical staff, since he was transferred out of ICU over the last two days he was doing well but this morning the patient was found to be very weak again and very lethargic. CT of head was ordered at the time of the interview, which showed no acute intracranial abnormality. Neurology was consulted to evaluate. At the time of this interview, the patient's MRI of head was competed and showed no acute intracranial abnormality. Initially the patient was very drowsy and appears weak and looking pale, but after few rounds interaction during physical examination he gradually perked up and was quite awake and oriented. He moves all extremities but does have difficulty lifting legs off the bed Past Med Surg Social Fam HX - Past Medical History Medical history: CVA, dementia, diabetes, hyperlipidemia, hypertension, renal disease, other Psychiatric history: depression, prior suicide attempt - Past Surgical History Surgical History: hip replacement, orthopedic, other, other - Social History Smoking Status: Never smoker Smokeless Tobacco Status: No Alcohol use: none Drug use: none - Family History Mother Living Status: Still Living Hx Family Cardiac Disorders: Yes (A-fib s/p pacemaker) Hx Family Endocrine Disorder: Yes (DM) Father Living Status: Hx Family Cardiac Disorders: Yes (heart disease) Hx Family Respiratory Disorders: No Hx Family Cancer: No Hx Family GI Disorders: No Hx Family Endocrine Disorder: No Hx Family Neuromuscular Disorders: No Hx Family Neurologic Disorders: No Hx Family HEENT Disorders: No Hx Family Autoimmune Disorders: No Brother Living Status: Hx Family Cardiac Disorders: Yes (CA) Hx Family Endocrine Disorder: Yes (DM) Medications and Allergies Cyclosporine [Restasis] 1 drop BOTH EYES BID 11/28/16 [History] Insulin LISPRO [HumaLOG] 0 unit SQ AD 11/28/16 [History] Loratadine [Allergy Relief] 10 mg PO DAILY PRN 11/28/16 [History] Sucralfate [Carafate] 1 gm PO TID #1 bottle 12/03/16 [Rx] DULoxetine [Cymbalta] 30 mg PO DAILY 02/15/17 [History] hydrALAZINE [HydrALAZINE] 25 mg PO Q8HR #90 tablet 03/29/17 [Rx] Amlodipine Besylate 10 mg PO DAILY 04/14/17 [History] Amoxicillin/Clavulanate [Augmentin] 500 mg PO BID 04/14/17 [History] Erythromycin OPTH Oint 1 appl OP HS 04/14/17 [History] Glucagon,Human Recombinant [Glucagen] 1 mg IM Q30MIN PRN 04/14/17 [History] Mirtazapine [Remeron] 30 mg PO HS 04/14/17 [History] Omeprazole [PriLOSEC] 40 mg PO BID 04/14/17 [History] Polyvinyl Alcohol [Artificial Tears] 1 drop BOTH EYES TID 04/14/17 [History] 3 Allergy/AdvReac Type Severity Reaction Status Date / Time aspirin Allergy Rash Verified 02/15/17 02:44 pseudoephedrine Allergy Rash Verified 02/15/17 02:44 [From Sudafed] morphine AdvReac See Verified 04/14/17 11:30 Comments All Systems: The remainder of the systems were reviewed and are negative Physical Examination - Vital Signs Vital Signs: Initial Vital Signs Temp Pulse Resp BP Pulse Ox 89.9 F L 54 16 78/42 91 04/14/17 10:01 04/14/17 10:01 04/14/17 10:01 04/14/17 10:01 04/14/17 10:01 - Constitutional General appearance: chronically ill - Neurologic Sensorimotor examination: other (Grossly intact to pinprick, touch and vibration senses all extremities. 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 Hand train planner +/5. Proximal muscle strength around 3/5 symmetrical. able to wiggle his toes bilaterally. ) Motor examination - right side: 3/5: biceps, hip flexors, tibialis Anterior, quadriceps, 4/5: triceps, wrist flexion, wrist extension, train planner, toe extension ( EHL), plantarflexion Motor examination - left side: 3/5: deltoids, biceps, hip flexors, quadriceps, tibialis Anterior, 4/5: triceps, wrist flexion, wrist extension, train planner, toe extension (EHL), plantarflexion Detailed sensory examination: intact (Grossly intact) Posture: other (None) Reflex and gait examination: other (Gait not tested) Reflexes: Biceps: 1+, Triceps: 1+, Brachioradialis: 1+, Patella: 1+, Achilles: 1 + Mental Status Examination: awake, alert, oriented to person, oriented to place, oriented to time, follows commands appropriately, answers questions appropriately, no agnosia, no aphasia Cranial nerve examination: PERRL, EOMI, visual rodrigues intact, corneal reflexes brisk symmetrically, sensory to face intact, mastication intact, no facial asymmetry is present, no dysarthria, hearing is intact symmetrically, soft palate elevates bilaterally upon phonation, gag reflex intact, tongue protrudes midline Results - Laboratory Findings CBC and BMP: 04/22/17 06:17 04/22/17 06:17 Abnormal lab findings: Abnormal lab results RBC 2.91 M/mcL (4.19-5.50) L 04/22/17 06:17 Hgb 8.1 g/dL (12.9-16.9) L 04/22/17 06:17 Hct 25.9 % (37.5-50.1) L 04/22/17 06:17 MCH 27.8 pg (28.0-33.3) L 04/22/17 06:17 MCHC 31.3 g/dL (31.6-35.5) L 04/22/17 06:17 RDW 15.4 % (11.5-14.5) H 04/22/17 06:17 Plt Count 86 K/mcL (140-400) L 04/22/17 06:17 Lymphocytes # 0.4 K/mcL (0.6-4.6) L 04/20/17 04:33 Nucleated RBCs/100 WBC 0.6 /100 WBC (0) H 04/20/17 04:33 Platelet Estimate Slight Decrease (Normal) L 04/16/17 04:40 Hypochromasia Present (Not Present) A 04/16/17 04:40 APTT 83.0 Seconds (26.0-36.0) H 04/14/17 10:25 ABG pH 7.49 pH Units (7.32-7.45) H 04/16/17 04:42 ABG pO2 82 mmHg (85-104) L 04/16/17 04:42 ABG HCO3 29 mEq/L (21-27) H 04/16/17 04:42 ABG Total CO2 30 mEq/L (20-26) H 04/16/17 04:42 ABG Base Excess 5 mEq/L (-2 to 3) H 04/16/17 04:42 Potassium 3.0 mEq/L (3.5-5.1) L 04/22/17 06:17 Carbon Dioxide 14 mEq/L (23-29) L 04/22/17 06:17 BUN 58 mg/dL (8-23) H 04/22/17 06:17 Creatinine 4.18 mg/dL (0.70-1.30) H 04/22/17 06:17 Est GFR ( Amer) 18 (> 60) L 04/22/17 06:17 Est GFR (Non-Af Amer) 15 (> 60) L 04/22/17 06:17 Glucose 200 mg/dL (70-105) H 04/22/17 06:17 POC Glucose 186 (58-89) H 04/22/17 11:29 Calculated Osmolality 310 (280-300) H 04/22/17 06:17 Total Bilirubin 0.2 mg/dL (0.3-1.0) L 04/20/17 04:33 AST 9 Units/L (13-39) L 04/20/17 04:33 ALT 5 Units/L (7-52) L 04/20/17 04:33 Serum Total Protein 4.3 g/dL (6.4-8.9) L 04/20/17 04:33 Albumin 2.1 g/dL (3.5-5.7) L 04/20/17 04:33 Globulin 2.2 g/dL (2.4-3.5) L 04/20/17 04:33 Albumin/Globulin Ratio 1.0 (1.1-2.2) L 04/20/17 04:33 Urine Clarity Turbid (Clear) A 04/22/17 07:30 Urine Protein 100 mg/dL (Neg-Trace) H 04/22/17 07:30 Urine Blood Large (Negative) H 04/22/17 07:30 Ur Leukocyte Esterase Large (Negative) H 04/22/17 07:30 Urine Microscopic RBC TNTC per hpf (0-3) H 04/22/17 07:30 Urine Microscopic WBC TNTC per hpf (0-3) H 04/22/17 07:30 Ur Squamous Epith Cells Many per lpf (None-Few) H 04/22/17 07:30 - Diagnostic Findings Additional findings: MR/MR head/brain wo con IMPRESSION: No acute infarct, intracranial hemorrhage, or significant mass effect. Chronic left cerebellar infarct with associated encephalomalacia and gliosis. Chronic small vessel ischemic white matter disease and cerebral volume loss. Nonspecific bilateral mastoid opacification. Correlate with any concern of mastoiditis. CT/CT head/brain wo con IMPRESSION: Evaluation is limited due to gross patient motion. No evidence of acute intracranial abnormality or significant interval changes from prior study. The patient has chronic white matter ischemic change, left cerebellar infarct, remote, and remote left thalamic and basal ganglial infarcts. RECOMMENDATIONS: MRI imaging can be considered as clinically indicated. Consult Discharge Plan - Plan Referrals: Cecil Carter MD [Primary Care Provider] -
[2017-04-23] MEDS: D5% in 0.45% NACL w KCl 10 MEQ/1,000 ML MLS IVC SCH (06:11)
[2017-04-23 06:58] LABS: Calcium 8.5 mg/dL (8.6-10.3); Potassium 3.1 mEq/L (3.5-5.1)
[2017-04-23 08:30] LABS: Hematocrit 23.5 % (37.5-50.1); Hemoglobin 7.3 g/dL (12.9-16.9); Immature Platelets 5.7 % (1.1-6.1); Mean Corpuscular HGB Conc 31.1 g/dL (31.6-35.5); Red Blood Count 2.61 M/mcL (4.19-5.50); Red Cell Distribution Width 15.6 % (11.5-14.5)
[2017-04-23] MEDS ORDERED: Vancomycin 500 MG in 0.9 % Sodium Chloride Mini Bag 100 ML IVPB ONE (09:00)
--- NOTE | 2017-04-23 09:02 | Neurology Progress Note ---
<Jayme Mayo - Last Filed: 04/23/17 11:09> Date of Encounter: 04/23/17 Time of Encounter: 09:02 Assessment and Plan (1) Altered mental status Current Visit: No Status: Acute Altered mental status likely secondary to acute on chronic medical problems. Mr. Mdeel is a 61-year-old male who is very deconditioned with multiple comorbid factors including previous CVA, diabetes, hyperlipidemia, hypertension with severe deconditioning and protein malnourished. He is alert and oriented to self only. No noticeable cranial nerve dysfunctions at this time. Patient is diffusely weak in upper and lower extremities and does not follow motor commands. Reflexes are severely diminished but symmetric. At this time is more likely that his altered mental status secondary to his acute on chronic illness. Qualifiers: Altered mental status type: somnolence Qualified Code(s): R40.0 - Somnolence Subjective Principal diagnosis: Sepsis Interval history: Mr. Miranda 61-year-old male seen and evaluated patient bedside this morning. He presents as a very sick gentleman, generalized weakness, altered mental status alert and oriented to self only at this time. Upon examination today he does not demonstrate any cranial nerve dysfunction, generalized diffuse proximal muscle weakness bilaterally upper and lower extremities. Mr. Miranda is very deconditioned likely secondary to his acute on chronic medical problems. Objective - Constitutional Vitals: Temp Pulse Resp BP Pulse Ox 97.3 F L 83 15 110/64 98 04/23/17 08:20 04/23/17 08:20 04/23/17 08:20 04/23/17 08:20 04/23/17 08:20 - Neurological Exam Sensorimotor examination: Present: other (Grossly intact to pinprick, touch and vibration senses all extremities. ) Motor Examination: Present: grossly full strength in all extremities (Hand clutch rebuilder appear equal, although he is generally weak allover. Hand door captain +/5. Proximal muscle strength around 3/5 symmetrical. able to wiggle his toes bilaterally. ) Motor examination - left side: 3/5: deltoids, biceps, hip flexors, quadriceps, tibialis Anterior, 4/5: triceps, wrist flexion, wrist extension, door captain, toe extension (EHL), plantarflexion Sensation intact: Present: intact (Grossly intact) Posture: Present: other (None) Reflex and gait examination: other (Gait not tested) Mental Status Examination: Present: awake, alert, oriented to person, oriented to place, oriented to time, follows commands appropriately, answers questions appropriately, no agnosia, no aphasia Cranial nerve examination: Present: PERRL, EOMI, visual rodrigues intact, corneal reflexes brisk symmetrically, sensory to face intact, mastication intact, no facial asymmetry is present, no dysarthria, hearing is intact symmetrically, soft palate elevates bilaterally upon phonation, gag reflex intact, tongue protrudes midline - VTE Documentation of Mechanical Device: Intermittent pneumatic compression device Results - Laboratory Findings CBC and BMP: 04/23/17 05:55 04/23/17 05:55 Abnormal lab findings: Abnormal lab results RBC 2.91 M/mcL (4.19-5.50) L 04/22/17 06:17 Hgb 8.1 g/dL (12.9-16.9) L 04/22/17 06:17 Hct 25.9 % (37.5-50.1) L 04/22/17 06:17 MCH 27.8 pg (28.0-33.3) L 04/22/17 06:17 MCHC 31.3 g/dL (31.6-35.5) L 04/22/17 06:17 RDW 15.4 % (11.5-14.5) H 04/22/17 06:17 Plt Count 86 K/mcL (140-400) L 04/22/17 06:17 Lymphocytes # 0.4 K/mcL (0.6-4.6) L 04/20/17 04:33 Nucleated RBCs/100 WBC 0.6 /100 WBC (0) H 04/20/17 04:33 Platelet Estimate Slight Decrease (Normal) L 04/16/17 04:40 Hypochromasia Present (Not Present) A 04/16/17 04:40 APTT 83.0 Seconds (26.0-36.0) H 04/14/17 10:25 ABG pH 7.49 pH Units (7.32-7.45) H 04/16/17 04:42 ABG pO2 82 mmHg (85-104) L 04/16/17 04:42 ABG HCO3 29 mEq/L (21-27) H 04/16/17 04:42 ABG Total CO2 30 mEq/L (20-26) H 04/16/17 04:42 ABG Base Excess 5 mEq/L (-2 to 3) H 04/16/17 04:42 Potassium 3.1 mEq/L (3.5-5.1) L 04/23/17 05:55 Chloride 108 mEq/L (98-107) H 04/23/17 05:55 Carbon Dioxide 13 mEq/L (23-29) L 04/23/17 05:55 BUN 55 mg/dL (8-23) H 04/23/17 05:55 Creatinine 4.17 mg/dL (0.70-1.30) H 04/23/17 05:55 Est GFR ( Amer) 18 (> 60) L 04/23/17 05:55 Est GFR (Non-Af Amer) 15 (> 60) L 04/23/17 05:55 Glucose 323 mg/dL (70-105) H 04/23/17 05:55 POC Glucose 186 (58-89) H 04/22/17 11:29 Calculated Osmolality 318 (280-300) H 04/23/17 05:55 Calcium 8.5 mg/dL (8.6-10.3) L 04/23/17 05:55 Total Bilirubin 0.2 mg/dL (0.3-1.0) L 04/20/17 04:33 AST 9 Units/L (13-39) L 04/20/17 04:33 ALT 5 Units/L (7-52) L 04/20/17 04:33 Serum Total Protein 4.3 g/dL (6.4-8.9) L 04/20/17 04:33 Albumin 2.1 g/dL (3.5-5.7) L 04/20/17 04:33 Globulin 2.2 g/dL (2.4-3.5) L 04/20/17 04:33 Albumin/Globulin Ratio 1.0 (1.1-2.2) L 04/20/17 04:33 Urine Clarity Turbid (Clear) A 04/22/17 07:30 Urine Protein 100 mg/dL (Neg-Trace) H 04/22/17 07:30 Urine Blood Large (Negative) H 04/22/17 07:30 Ur Leukocyte Esterase Large (Negative) H 04/22/17 07:30 Urine Microscopic RBC TNTC per hpf (0-3) H 04/22/17 07:30 Urine Microscopic WBC TNTC per hpf (0-3) H 04/22/17 07:30 Ur Squamous Epith Cells Many per lpf (None-Few) H 04/22/17 07:30 Consult Discharge Plan - Plan Referrals: Cecil Carter MD [Primary Care Provider] - <Marjorie Davies I - Last Filed: 04/26/17 16:42> Date of Encounter: 04/23/17 Assessment and Plan (1) Altered mental status Current Visit: No Status: Acute Pt was seen and examined, my medical decision was reviewed with the Resident Physician, I agree with the documented findings, disposition and treatment plas as described except to the extent set forth below Marjorie Davies MD Qualifiers: Altered mental status type: somnolence Qualified Code(s): R40.0 - Somnolence Objective - Constitutional Vitals: Temp Pulse Resp BP Pulse Ox 98.1 F 64 16 150/72 97 04/26/17 12:00 04/26/17 15:00 04/26/17 16:17 04/26/17 15:00 04/26/17 16:17 Results - Laboratory Findings CBC and BMP: 04/26/17 04:00 04/26/17 04:00 Abnormal lab findings: Abnormal lab results RBC 2.74 M/mcL (4.19-5.50) L 04/26/17 04:00 Hgb 7.7 g/dL (12.9-16.9) L 04/26/17 04:00 Hct 24.3 % (37.5-50.1) L 04/26/17 04:00 RDW 15.6 % (11.5-14.5) H 04/26/17 04:00 Plt Count 98 K/mcL (140-400) L 04/26/17 04:00 Nucleated RBCs/100 WBC 0.6 /100 WBC (0) H 04/20/17 04:33 Platelet Estimate Slight Decrease (Normal) L 04/16/17 04:40 Immature Plt Fraction 6.7 % (1.1-6.1) H 04/26/17 04:00 Hypochromasia Present (Not Present) A 04/16/17 04:40 APTT 83.0 Seconds (26.0-36.0) H 04/14/17 10:25 ABG pO2 80 mmHg (85-104) L 04/26/17 03:41 ABG Base Excess -3 mEq/L (-2 to 3) L 04/26/17 03:41 Chloride 111 mEq/L (98-107) H 04/26/17 04:00 Carbon Dioxide 22 mEq/L (23-29) L 04/26/17 04:00 BUN 60 mg/dL (8-23) H 04/26/17 04:00 Creatinine 4.14 mg/dL (0.70-1.30) H 04/26/17 04:00 Est GFR ( Amer) 18 (> 60) L 04/26/17 04:00 Est GFR (Non-Af Amer) 15 (> 60) L 04/26/17 04:00 Glucose 211 mg/dL (70-105) H 04/26/17 04:00 POC Glucose 161 (58-89) H 04/25/17 23:24 Calculated Osmolality 321 (280-300) H 04/26/17 04:00 Calcium 8.2 mg/dL (8.6-10.3) L 04/26/17 04:00 AST 4 Units/L (13-39) L 04/26/17 04:00 ALT 3 Units/L (7-52) L 04/26/17 04:00 Serum Total Protein 4.0 g/dL (6.4-8.9) L 04/26/17 04:00 Albumin 1.7 g/dL (3.5-5.7) L 04/26/17 04:00 Globulin 2.3 g/dL (2.4-3.5) L 04/26/17 04:00 Albumin/Globulin Ratio 0.7 (1.1-2.2) L 04/26/17 04:00 Urine Clarity Turbid (Clear) A 04/22/17 07:30 Urine Protein 100 mg/dL (Neg-Trace) H 04/22/17 07:30 Urine Blood Large (Negative) H 04/22/17 07:30 Ur Leukocyte Esterase Large (Negative) H 04/22/17 07:30 Urine Microscopic RBC TNTC per hpf (0-3) H 04/22/17 07:30 Urine Microscopic WBC TNTC per hpf (0-3) H 04/22/17 07:30 Ur Squamous Epith Cells Many per lpf (None-Few) H 04/22/17 07:30
[2017-04-23] MEDS: Vancomycin Oral Soln 250 MG/5 ML UDC PO SCH ×4 (09:04→22:17)
[2017-04-23] MEDS: Insulin LISPRO 300 UNITS/3 ML VIAL SQ SCH ×4 (09:05→21:13)
--- NOTE | 2017-04-23 09:13 | Nephrology Progress Note ---
Date of Encounter: 04/23/17 Time of Encounter: 09:12 - Assessment and Plan (1) KARI (acute kidney injury) Current Visit: No Status: Acute Patient has acute kidney injury in the setting of severe recurrent urinary tract infections and possible chronic urinary tract infections as well. He has difficulty emptying his bladder needs to be maintained with a Spears catheter indefinitely. The patient's renal function is currently stable. He is going to need additional bicarbonate replacement as well as potassium replacement intravenously. Long-term management will necessitate a PEG tube. (2) UTI (urinary tract infection) Current Visit: No Status: Chronic Qualifiers: Urinary tract infection type: acute cystitis Hematuria presence: without hematuria Qualified Code(s): N30.00 - Acute cystitis without hematuria Subjective Principal diagnosis: Sepsis Interval history: The patient is lying in bed with his eyes closed. He denies any complaints. Renal function is the same. He continues to show metabolic acidosis and hypokalemia. Oral intake continues to be poor. Objective - Vital Signs Vital signs: Vital Signs Temp Pulse Resp BP Pulse Ox 04/23/17 08:20 97.3 F L 83 15 110/64 98 04/23/17 05:28 97.3 F L 89 18 129/67 97 04/23/17 00:45 99.6 F 88 18 127/66 95 04/22/17 20:29 97.5 F L 82 18 135/67 93 04/22/17 14:09 97.9 F 75 18 157/76 96 04/22/17 10:28 98.2 F 85 16 135/73 97 Intake and Output 04/22/17 04/23/17 04/23/17 23:59 07:59 15:59 Intake Total 1180 / 1180 0 / 0 50 / 50 Output Total 0 / 0 0 / 0 700 / 700 Balance 1180 / 1180 0 / 0 -650 / -650 Intake: IV Fluids 1000 / 1000 KCl 10mEq in D5-0.45 NaCl 10 1000 / 1000 meq In 1,000 ml @ 75 mls/hr IVC [id number] Rx#:[id number] Oral 180 / 180 0 / 0 50 / 50 Output: Catheter 0 / 0 0 / 0 700 / 700 Other: Meal Dinner Percent of Meal Consumed 20% Stool Size Small Stool Consistency loose Stool Color Brown # Bowel Movements 1 Blood Glucose* 179 349 - General Appearance Exam: Patient is debilitated. He is in no acute distress. Lungs coarse breath sounds. Heart regular rate and rhythm. Abdomen is benign. He is starting to develop some peripheral edema. - Lab 04/22/17 06:17 04/23/17 05:55 Most recent lab results ABG pH 7.49 pH Units (7.32-7.45) H 04/16/17 04:42 ABG pCO2 38 mmHg (35-45) 04/16/17 04:42 ABG pO2 82 mmHg (85-104) L 04/16/17 04:42 ABG HCO3 29 mEq/L (21-27) H 04/16/17 04:42 ABG O2 Saturation 97 % (95-98) 04/16/17 04:42 Calcium 8.5 mg/dL (8.6-10.3) L 04/23/17 05:55 Magnesium 2.1 mg/dL (1.6-2.6) 04/17/17 05:14 - VTE Documentation of Mechanical Device: Intermittent pneumatic compression device Consult Discharge Plan - Plan Referrals: Cecil Carter MD [Primary Care Provider] -
--- NOTE | 2017-04-23 10:45 | Internal Med Progress Note ---
Date of Encounter: 04/23/17 Time of Encounter: 10:41 - Assessment and plan (1) Acute metabolic encephalopathy Current Visit: No Status: Resolved Assessment and plan: Acute metabolic encephalopathy caused by septic shock due to MRSA pneumonia and Proteus UTI, worsened by C. difficile colitis Continue oral vancomycin day #5, IV vancomycin and Rocephin day #10 (2) Urinary tract infection Current Visit: No Status: Resolved Assessment and plan: Growing Proteus Continue Rocephin to complete at least 2-3 weeks to avoid kidney stone formation Qualifiers: Urinary tract infection type: site unspecified Hematuria presence: with hematuria Qualified Code(s): N39.0 - Urinary tract infection, site not specified; R31.9 - Hematuria, unspecified (3) C. difficile diarrhea Current Visit: Yes Status: Acute Assessment and plan: Continue oral vancomycin 125 mg QID Consider adding Flagyl (4) MRSA pneumonia Current Visit: Yes Status: Acute Assessment and plan: Sputum culture is positive for MRSA and Proteus Mirabilis sensitive to ceftriaxone. Continue vancomycin and Rocephin Using BIPAP Qualifiers: Laterality: bilateral Lung location: unspecified part of lung Qualified Code(s): J15.212 - Pneumonia due to Methicillin resistant Staphylococcus aureus (5) Respiratory failure with hypoxia Current Visit: Yes Status: Acute Assessment and plan: Secondary to MRSA pneumonia. Patient was successfully liberated from mechanical ventilation and tolerating nasal cannula oxygen at 4-5 L and BiPAP intermittently. Continue oxygen supplementation and wean O2 to maintain saturation above 90%. He dropped down to 78% on room air. Oxygen saturation improvement BiPAP. Qualifiers: Chronicity: acute Qualified Code(s): J96.01 - Acute respiratory failure with hypoxia (6) Septic shock Current Visit: Yes Status: Resolved Assessment and plan: Secondary to MRSA pneumonia. Resolved at this time. (7) [id number] kidney injury Current Visit: No Status: Acute Assessment and plan: KARI on CKD stage III. Baseline appears to be 1.8-2. Creatinine has improved this admission from 8.54 , is trending down. Per documentation, nephrology Placed a palliative consult. Qualifiers: Acute renal failure type: unspecified Chronic kidney disease stage: stage 3 (moderate) Qualified Code(s): N17.9 - Acute kidney failure, unspecified; N18.3 - Chronic kidney disease, stage 3 (moderate); N18.3 - Chronic kidney disease, stage 3 (moderate) (8) Physical deconditioning Current Visit: No Status: Acute (9) CKD (chronic kidney disease) stage 3, GFR 30-59 ml/min Current Visit: No Status: Chronic (10) Cerebrovascular accident involving cerebellum Current Visit: No Status: Chronic Assessment and plan: Hx of CVA, allergic to aspirin Neurolgy consulted, no further testing recommended CT scan of the head showed: No evidence of acute intracranial abnormality or significant interval changes from prior study. The patient has chronic white matter ischemic change, left cerebellar infarct, remote, and remote left thalamic and basal ganglial infarcts MRI of the brain showed:1. No acute infarct, intracranial hemorrhage, or significant mass effect. 2. Chronic left cerebellar infarct with associated encephalomalacia and gliosis. 3. Chronic small vessel ischemic white matter disease and cerebral volume loss. 4. Nonspecific bilateral mastoid opacification. Correlate with any concern of mastoiditis. (11) DM (diabetes mellitus), type 2 Current Visit: No Status: Chronic Assessment and plan: Insulin sliding scale Qualifiers: Diabetes mellitus complication status: with hypoglycemia Diabetes mellitus complication detail: without coma Diabetes mellitus meterman insulin use: with longterm use Qualified Code(s): E11.649 - Type 2 diabetes mellitus with hypoglycemia without coma; Z79.4 - penitentiary (current) use of insulin (12) Acidosis, metabolic, with respiratory acidosis Current Visit: Yes Status: Acute Assessment and plan: Has resolved (13) Anemia Current Visit: No Status: Acute Assessment and plan: Possible acute blood loss anemia/ iron deficiency Unknown source, hemoccult negative Omeprazole received 1 unit of RBCs, transfuse another one today order CT of the abdomen avoid blood thinners for now Qualifiers: Anemia type: due to chronic kidney disease Chronic kidney disease stage: stage 5, not on chronic dialysis Qualified Code(s): N18.5 - Chronic kidney disease, stage 5; D63.1 - Anemia in chronic kidney disease; D63.1 - Anemia in chronic kidney disease - Subjective Interval history: Following only very simple commands. Extremely weak, disoriented at times, dysarthric, unable to complete review of systems - Constitutional Vitals: Temp Pulse Resp BP Pulse Ox 97.3 F L 83 15 110/64 98 04/23/17 08:20 04/23/17 08:20 04/23/17 08:20 04/23/17 08:20 04/23/17 08:20 General appearance: Present: cachectic, A&O X 2, pleasant, no acute distress Exam: - Head Head exam: Present: atraumatic, normocephalic - Eye Eye exam: Present: PERRL, conjuntiva pink, sclera anicteric Pupils: Present: PERRL - Neck Neck exam general surgery: Present: supple, trachea midline. Absent: lymphadenopathy - Respiratory Respiratory exam: Present: CTAB. Absent: accessory muscle use, rales, rhonchi, wheezes - Cardiovascular Cardiovascular exam: Present: RRR, +S1, +S2. Absent: diastolic murmur, gallop, rubs, systolic murmur - GI/Abdominal GI/Abdominal exam: Present: normal bowel sounds, soft, no peritoneal signs. Absent: distended, tenderness - Extremities Exam Extremities exam: Present: pedal edema (+2 pitting edema in both lower extremities), warm, radial pulses palpable and symmetrical. Absent: calf tenderness, cyanotic Additional comments: Generalized muscle atrophy Spears catheter in place - Neurological Exam Neurological exam: Present: CN II-XII intact, oriented X2, pronater drift, left facial droop resolved, speech deficit, left eye ptosis has improved , pupils reactive - Skin Skin exam: Present: dry, intact Internal Medicine: Result - Labs CBC & Chem 7: 04/23/17 05:55 04/23/17 05:55 Labs: Short CBC 04/23/17 Range/Units 05:55 WBC 6.1 (4.3-11.1) K/mcL Hgb 7.3 L (12.9-16.9) g/dL Hct 23.5 L (37.5-50.1) % Plt Count 81 L (140-400) K/mcL BMP 04/23/17 05:55 Sodium 140 Potassium 3.1 L Chloride 108 H Carbon Dioxide 13 L BUN 55 H Creatinine 4.17 H Glucose 323 H Calcium 8.5 L Urine 04/22/17 Range/Units 07:30 Urine Color Yellow (Yellow) Urine Clarity Turbid A (Clear) Urine pH 6.0 (5.0-8.0) pH Units Ur Specific [place] 1.016 (1.010-1.025) Urine Protein 100 H (Neg-Trace) mg/dL Urine Glucose (UA) Normal (Normal) mg/dL - ABG Interpretation ABG results: ABG ABG pH 7.49 pH Units (7.32-7.45) H 04/16/17 04:42 ABG pCO2 38 mmHg (35-45) 04/16/17 04:42 ABG pO2 82 mmHg (85-104) L 04/16/17 04:42 ABG O2 Saturation 97 % (95-98) 04/16/17 04:42 PT/INR, D-dimer PT 10.5 Seconds (9.4-12.1) 04/14/17 10:25 - Impressions Impressions Head CT 04/22/17 08:14 IMPRESSION: Evaluation is limited due to gross patient motion. No evidence of acute intracranial abnormality or significant interval changes from prior study. The patient has chronic white matter ischemic change, left cerebellar infarct, remote, and remote left thalamic and basal ganglial infarcts. RECOMMENDATIONS: MRI imaging can be considered as clinically indicated. D/ / 04/22/2017 10:00:44 Sue Borjas MD / [email or web address] Interpreting Provider: Sue Borjas MD Brain MRI 04/22/17 08:25 IMPRESSION: 1. No acute infarct, intracranial hemorrhage, or significant mass effect. 2. Chronic left cerebellar infarct with associated encephalomalacia and gliosis. 3. Chronic small vessel ischemic white matter disease and cerebral volume loss. 4. Nonspecific bilateral mastoid opacification. Correlate with any concern of mastoiditis. D/ / 04/22/2017 15:05:35 Benja Burk MD / [facility] Interpreting Provider: Benja Burk MD - VTE Documentation of Mechanical Device: Intermittent pneumatic compression device Consult Discharge Plan - Plan Referrals: Cecil Carter MD [Primary Care Provider] -
--- NOTE | 2017-04-23 10:55 | Event Note ---
Date of Encounter: 04/23/17 Time of Encounter: 10:54 Agents CODE STATUS has been confirmed that full, has now announced that he wishes to have a PEG tube placed per discussions yesterday with the period and I have confirmed with the patient's medical power of trademark attorney that they concur. She will end up returning back to his [facility]. Patient does wish to have full aggressive care and now that he has agreed to the PEG tube palliative has nothing further. To his care. We will sign off please reconsult if we can help.
[2017-04-23] MEDS ORDERED: 0.9 % Sodium Chloride 250 ML ONE (12:59)
[2017-04-23] MEDS: cefTRIAXone 2,000 MG in Water for inj. (sterile) 20 ML 20 ML IVP SCH (13:12)
[2017-04-23] MEDS: Sodium Bicarbonate 150 MEQ in D5% in Water 1,000 ML IVC SCH (16:09)
[2017-04-23] MEDS: Cefepime HCl 1,000 MG in Water for inj. (sterile) 20 ML 10 ML IVPB SCH ×3 (17:48→18:20)
[2017-04-23] MEDS: 0.9 % Sodium Chloride 1,000 ML IVC SCH (19:48)
[2017-04-23] MEDS: *HR* Dextrose 50 % in Water (Syg) 50 ML SYRINGE IVP PRN (21:16)
[2017-04-24] MEDS: Cefepime HCl 1,000 MG in Water for inj. (sterile) 20 ML 10 ML IVPB SCH ×2 (06:32→16:43)
[2017-04-24] MEDS: Sodium Bicarbonate 150 MEQ in D5% in Water 1,000 ML IVC SCH ×2 (06:36→16:44)
[2017-04-24 07:05] LABS: Albumin/Globulin Ratio 0.9 (1.1-2.2); Bilirubin,Total 0.3 mg/dL (0.3-1.0); Calcium 8.4 mg/dL (8.6-10.3); Globulin 2.3 g/dL (2.4-3.5); Potassium 3.5 mEq/L (3.5-5.1); Total Protein 4.3 g/dL (6.4-8.9)
--- NOTE | 2017-04-24 08:13 | Nephrology Progress Note ---
Date of Encounter: 04/24/17 Time of Encounter: 08:11 - Assessment and Plan (1) KARI (acute kidney injury) Current Visit: No Status: Acute Patient has acute kidney injury in the setting of severe recurrent urinary tract infections and possible chronic urinary tract infections as well. He has difficulty emptying his bladder needs to be maintained with a Spears catheter indefinitely. The patient's renal function is stable. Metabolic acidosis is improving. He appears to be more volume overloaded. I am going to reduce the rate of his IV. I am also going to give him 1 dose of Lasix. (2) UTI (urinary tract infection) Current Visit: No Status: Chronic Qualifiers: Urinary tract infection type: acute cystitis Hematuria presence: without hematuria Qualified Code(s): N30.00 - Acute cystitis without hematuria Subjective Principal diagnosis: Sepsis Interval history: The patient appears more somnolent this morning. Serum creatinine is stable. Bicarbonate levels are increasing. Potassium is 3.5. He does appear to be more volume overloaded. Urine output is 1.4 L. Objective - Vital Signs Vital signs: Vital Signs Temp Pulse Resp BP Pulse Ox 04/24/17 04:50 97.7 F 75 18 124/68 93 04/23/17 23:39 98.1 F 65 17 134/62 93 04/23/17 21:13 99 F 70 17 161/83 94 04/23/17 16:09 98.0 F 71 16 145/74 91 04/23/17 13:07 99.1 F 76 16 137/78 93 04/23/17 13:03 98.5 F 76 18 144/73 90 04/23/17 11:25 99.1 F 80 15 133/74 95 04/23/17 08:20 97.3 F L 83 15 110/64 98 Intake and Output 04/23/17 04/24/17 04/24/17 23:59 07:59 15:59 Intake Total 579 / 579 782 / 782 Output Total 700 / 700 450 / 450 Balance -121 / -121 332 / 332 Intake: IV Fluids 310 / 310 782 / 782 Sodium Bicarbonate 150 MEQ In 682 / 682 Dextrose 5% 1,000 ML @ 75 mls/ hr IVC .[id number] [facility] Rx#: [id number] Maxipime 1,000 MG In Water for inj. (sterile) 10 ML @ 300 mls/ hr IVPB Q12HR [facility] Rx#: [id number] Potassium Chloride 10 mEq/100mL 300 / 300 100 / 100 10 meq In 100 ml @ 100 mls/hr IVPB Q1H [facility] Rx#:[id number] Oral 0 / 0 Blood Product 269 / 269 Rbcs Leuko Poor As-1 Unit 269 / 269 [id number] Output: Urine 100 / 100 Catheter 600 / 600 450 / 450 Other: Meal Dinner 2 Bites Weight 60.5 kg Blood Glucose* 95 Patient Weight 04/24/17 23:59 Weight 60.5 kg - General Appearance Exam: Patient appears to be more lethargic today. Lungs coarse breath sounds otherwise clear. Heart regular rhythm. Abdomen is benign. He does have some edema of upper and lower extremities. - Lab 04/23/17 05:55 04/24/17 06:04 Most recent lab results ABG pH 7.49 pH Units (7.32-7.45) H 04/16/17 04:42 ABG pCO2 38 mmHg (35-45) 04/16/17 04:42 ABG pO2 82 mmHg (85-104) L 04/16/17 04:42 ABG HCO3 29 mEq/L (21-27) H 04/16/17 04:42 ABG O2 Saturation 97 % (95-98) 04/16/17 04:42 Calcium 8.4 mg/dL (8.6-10.3) L 04/24/17 06:04 Magnesium 2.1 mg/dL (1.6-2.6) 04/17/17 05:14 - VTE Documentation of Mechanical Device: Intermittent pneumatic compression device Consult Discharge Plan - Plan Referrals: Cecil Carter MD [Primary Care Provider] -
[2017-04-24] MEDS ORDERED: Furosemide 40 MG/4 ML VIAL IVP ONE (08:14)
[2017-04-24] MEDS ORDERED: Vancomycin 500 MG in 0.9 % Sodium Chloride Mini Bag 100 ML IVPB ONE (09:00)
[2017-04-24] MEDS: Vancomycin Oral Soln 250 MG/5 ML UDC PO SCH ×4 (09:01→20:28)
[2017-04-24] MEDS: Insulin LISPRO 300 UNITS/3 ML VIAL SQ SCH ×4 (09:01→20:48)
[2017-04-24 09:29] LABS: Hematocrit 27.7 % (37.5-50.1); Hemoglobin 8.7 g/dL (12.9-16.9); Mean Corpuscular HGB Conc 31.4 g/dL (31.6-35.5); Mean Corpuscular Hemoglobin 28.2 pg (28.0-33.3); Mean Corpuscular Volume 89.9 fL (83.0-100.0); Mean Platelet Volume 11.6 fL (9.4-12.4); Platelet Count 104 K/mcL (140-400); Red Blood Count 3.08 M/mcL (4.19-5.50); Red Cell Distribution Width 15.7 % (11.5-14.5)
--- NOTE | 2017-04-24 12:58 | Internal Med Progress Note ---
<Demarco Mg - Last Filed: 04/24/17 13:47> Date of Encounter: 04/24/17 Time of Encounter: 09:20 - Assessment and plan (1) Acute metabolic encephalopathy Current Visit: No Status: Resolved Assessment and plan: Acute metabolic encephalopathy caused by septic shock due to MRSA pneumonia and Proteus UTI, worsened by C. difficile colitis Continue oral vancomycin (day 6), IV vancomycin (day 10?) and Rocephin day (day 8?) Urine now growing yeast, starting fluconazole 200mg daily (day 1). (2) Urinary tract infection Current Visit: No Status: Resolved Assessment and plan: Initial urine culture grew Proteus It was recommended patient continue Rocephin to complete at least 2-3 weeks to avoid kidney stone formation. Repeat urine culture is growing yeast, will start fluconazole for coverage as patient is symptomatic/noted to worsening clinically over the weekend. Qualifiers: Urinary tract infection type: site unspecified Hematuria presence: with hematuria Qualified Code(s): N39.0 - Urinary tract infection, site not specified; R31.9 - Hematuria, unspecified (3) Severe protein-calorie malnutrition Current Visit: No Status: Chronic Assessment and plan: Patient was eating a few bites, noted at this point no longer swallowing food for staff. Patient wishes to have a PEG tube placed per discussions with Palliative team yesterday and this was confirmed with the patient's medical power of consumer attorney that they concur. GI consulted, they said they would see him tomorrow, 04/25/17. (4) Physical deconditioning Current Visit: No Status: Acute Assessment and plan: Patient states he has not walked in over a year. PT has screen pt and documented not a candidate for therapy. (5) MRSA pneumonia Current Visit: Yes Status: Acute Assessment and plan: Sputum culture is positive for MRSA and Proteus Mirabilis sensitive to ceftriaxone. Continue vancomycin (on IV and oral for C. diff in addition to pneumonia) Was on Rocephin (7 days), switched to zosyn last night (day 2). Qualifiers: Laterality: bilateral Lung location: unspecified part of lung Qualified Code(s): J15.212 - Pneumonia due to Methicillin resistant Staphylococcus aureus (6) C. difficile diarrhea Current Visit: Yes Status: Acute Assessment and plan: Continue oral vancomycin 125 mg QID (day 6) Consider adding Flagyl (7) Septic shock Current Visit: Yes Status: Resolved Assessment and plan: Secondary to MRSA pneumonia. Resolved at this time. (8) Respiratory failure with hypoxia Current Visit: Yes Status: Acute Assessment and plan: Secondary to MRSA pneumonia. Patient was successfully liberated from mechanical ventilation and on 15L high flow and BiPAP intermittently. Continue oxygen supplementation and wean O2 to maintain saturation above 90%. Patient removed oxygen today and was found to have pulse ox of 87%, ordered continuous O2 monitoring. Qualifiers: Chronicity: acute Qualified Code(s): J96.01 - Acute respiratory failure with hypoxia (9) Pctzp-tx-ducphyl kidney injury Current Visit: No Status: Acute Assessment and plan: KARI on CKD stage III. Baseline appears to be 1.8-2. Creatinine has improved this admission from 8.54, is trending down-Cr was 4.16 today Nephrology, Dr. Loyd, following.- Recommended Spears catheter indefinitely as patient has had multiple issues with recurrent UTI/chronic UTI with difficulty emptying bladder. Qualifiers: Acute renal failure type: unspecified Chronic kidney disease stage: stage 3 (moderate) Qualified Code(s): N17.9 - Acute kidney failure, unspecified; N18.3 - Chronic kidney disease, stage 3 (moderate); N18.3 - Chronic kidney disease, stage 3 (moderate) (10) DM (diabetes mellitus), type 2 Current Visit: No Status: Chronic Assessment and plan: Insulin sliding scale Qualifiers: Diabetes mellitus complication status: with hypoglycemia Diabetes mellitus complication detail: without coma Diabetes mellitus custodial insulin use: with custodial use Qualified Code(s): E11.649 - Type 2 diabetes mellitus with hypoglycemia without coma; Z79.4 - director drug safety (current) use of insulin (11) Acidosis, metabolic, with respiratory acidosis Current Visit: Yes Status: Resolved Assessment and plan: Has resolved - Subjective Interval history: Patient seen and examined at bedside. Patient appears more awake and alert than yesterday morning, however, speech still difficult to understand. Patient prefers yes or no questioning and appears to understand and answer questioning appropriately. Nursing concerned about patient's fluid status with rhonchi in lungs and edema of BLE. Repeat urine culture prelim result growing yeast. Patient continues on 15L high flow, patient was found to have removed nasal [place] at one point with O2 sat at 87%. - Constitutional Vitals: Temp Pulse Resp BP Pulse Ox 97.7 F 91 18 149/80 95 04/24/17 10:18 04/24/17 10:18 04/24/17 10:18 04/24/17 10:18 04/24/17 10:18 General appearance: Present: cachectic, A&O X 2, pleasant, no acute distress - Head Head exam: Present: atraumatic, normocephalic - Eye Eye exam: Present: conjuntiva pink, sclera anicteric - Neck Neck exam general surgery: Present: supple, trachea midline - Respiratory Respiratory exam: Present: rhonchi. Absent: accessory muscle use, wheezes - Cardiovascular Cardiovascular exam: Present: RRR, +S1, +S2. Absent: diastolic murmur, gallop, rubs, systolic murmur - GI/Abdominal GI/Abdominal exam: Present: normal bowel sounds, soft. Absent: distended, tenderness - Extremities Exam Extremities exam: Present: pedal edema (2+ pedal edema, feet wrapped SCDs/boots. ), warm. Absent: calf tenderness, cyanotic - Neurological Exam Neurological exam: Present: alert, oriented X3, no focal deficits. Absent: facial droop Additional comments: able to follow simple commands and answer questioning. - Skin Skin exam: Present: dry, intact Internal Medicine: Result - Labs CBC & Chem 7: 04/24/17 08:59 04/24/17 06:04 Labs: Short CBC 04/24/17 Range/Units 08:59 WBC 7.1 (4.3-11.1) K/mcL Hgb 8.7 L (12.9-16.9) g/dL Hct 27.7 L (37.5-50.1) % Plt Count 104 L (140-400) K/mcL BMP 04/24/17 06:04 Sodium 141 Potassium 3.5 Chloride 111 H Carbon Dioxide 17 L BUN 58 H Creatinine 4.16 H Glucose 213 H Calcium 8.4 L Liver Function 04/24/17 Range/Units 06:04 Total Bilirubin 0.3 (0.3-1.0) mg/dL AST 7 L (13-39) Units/L ALT 4 L (7-52) Units/L Alkaline Phosphatase 124 H (34-104) Units/L Albumin 2.0 L (3.5-5.7) g/dL - ABG Interpretation ABG results: ABG ABG pH 7.49 pH Units (7.32-7.45) H 04/16/17 04:42 ABG pCO2 38 mmHg (35-45) 04/16/17 04:42 ABG pO2 82 mmHg (85-104) L 04/16/17 04:42 ABG O2 Saturation 97 % (95-98) 04/16/17 04:42 PT/INR, D-dimer PT 10.5 Seconds (9.4-12.1) 04/14/17 10:25 - VTE Documentation of Mechanical Device: Intermittent pneumatic compression device Consult Discharge Plan - Plan Referrals: Cecil Carter MD [Primary Care Provider] - <Wyatt Dominguez - Last Filed: 04/24/17 19:19> Date of Encounter: 04/24/17 - Assessment and plan (1) Respiratory failure with hypoxia Current Visit: Yes Status: Acute Qualifiers: Chronicity: acute Qualified Code(s): J96.01 - Acute respiratory failure with hypoxia (2) C. difficile diarrhea Current Visit: Yes Status: Acute (3) MRSA pneumonia Current Visit: Yes Status: Acute Qualifiers: Laterality: bilateral Lung location: unspecified part of lung Qualified Code(s): J15.212 - Pneumonia due to Methicillin resistant Staphylococcus aureus (4) Hypertension Current Visit: Yes Status: Acute Qualifiers: Hypertension type: essential hypertension Qualified Code(s): I10 - Essential (primary) hypertension (5) CKD (chronic kidney disease) stage 3, GFR 30-59 ml/min Current Visit: No Status: Chronic (6) Metabolic encephalopathy Current Visit: No Status: Acute (7) DM (diabetes mellitus), type 2 Current Visit: No Status: Chronic Qualifiers: Diabetes mellitus complication status: with hypoglycemia Diabetes mellitus complication detail: without coma Diabetes mellitus custodial insulin use: with knife cutter use Qualified Code(s): E11.649 - Type 2 diabetes mellitus with hypoglycemia without coma; Z79.4 - group home (current) use of insulin (8) Severe protein-calorie malnutrition Current Visit: No Status: Chronic - Constitutional Vitals: Temp Pulse Resp BP Pulse Ox 99.0 F 76 18 156/76 96 04/24/17 16:14 04/24/17 16:14 04/24/17 16:14 04/24/17 16:14 04/24/17 16:14 Internal Medicine: Result - Labs CBC & Chem 7: 04/24/17 08:59 04/24/17 06:04 Labs: Short CBC 04/24/17 Range/Units 08:59 WBC 7.1 (4.3-11.1) K/mcL Hgb 8.7 L (12.9-16.9) g/dL Hct 27.7 L (37.5-50.1) % Plt Count 104 L (140-400) K/mcL BMP 04/24/17 06:04 Sodium 141 Potassium 3.5 Chloride 111 H Carbon Dioxide 17 L BUN 58 H Creatinine 4.16 H Glucose 213 H Calcium 8.4 L Liver Function 04/24/17 Range/Units 06:04 Total Bilirubin 0.3 (0.3-1.0) mg/dL AST 7 L (13-39) Units/L ALT 4 L (7-52) Units/L Alkaline Phosphatase 124 H (34-104) Units/L Albumin 2.0 L (3.5-5.7) g/dL - ABG Interpretation ABG results: ABG ABG pH 7.49 pH Units (7.32-7.45) H 04/16/17 04:42 ABG pCO2 38 mmHg (35-45) 04/16/17 04:42 ABG pO2 82 mmHg (85-104) L 04/16/17 04:42 ABG O2 Saturation 97 % (95-98) 04/16/17 04:42 PT/INR, D-dimer PT 10.5 Seconds (9.4-12.1) 04/14/17 10:25 - Attending Attestation I examined this patient and my medical decision-making was reviewed with the Resident Physician on 04/24/17. I agree with the documented findings, disposition and treatment plan as described except to the extent set forth below. Daily is currently admitted for MRSA pneumonia and C diff diarrhea. He remains moderate to high risk due to potential for worsening clinical status. Mr Neal arouses to name and answers my questions. He is very congested at this time. No fever. Wants to pursue PEG tube. Exam alert. Comfortable Mucus membranes dry Heart distant Lungs with rhonchi Abd soft I/P 1. Resp failure 2 MRSA PNA 3. C diff Further diagnoses and plan as above.
[2017-04-24] MEDS ORDERED: Fluconazole 200 MG/100 ML 100 MG/50 ML BAG IVPB SCH (13:15)
[2017-04-24] MEDS ORDERED: Fluconazole 100 MG/50 ML 100 MG/50 ML BAG IVPB SCH (13:30)
--- NOTE | 2017-04-24 21:35 | Event Note ---
Date of Encounter: 04/24/17 Time of Encounter: 21:31 I responded to a rapid response call on this patient. Upon my arrival, he was in respiratory failure. Despite being placed on Bipap and 100% FIO2, his SPO2 was only 82%. Prior to Rapid response, he was on O2 by nasal canula per nursing report. Because of hypoxemic respiratory failure and suspicion of aspiration, we proceeded with intubation. He was intubated by RT after premedication with Etomidate. I was present at bedside. Once airway was established, he was moved to ICU for ongoing ICU care.
[2017-04-24] MEDS ORDERED: *HR* Midazolam HCl 2 MG/2 ML VIAL IVP PRN (22:36)
[2017-04-24 22:57] LABS: ABG Base Excess -4 mEq/L (-2 to 3); ABG HCO3 23 mEq/L (21-27); ABG Oxygen Saturation 99 % (95-98); ABG PCO2 46 mmHg (35-45); ABG PO2 164 mmHg (85-104); ABG TCO2 24 mEq/L (20-26); Blood Gas Modality PRVC; Blood Gas PEEP 5 cm H2O; Blood Gas Respiration Rate 12; Blood Gas VT 500 cc
[2017-04-24] MEDS: MetroNIDAZOLE 500 MG/100 ML 500 MG/100 ML BAG IVPB SCH (23:36)
[2017-04-24] MEDS: Piperacillin/Tazobactam 3.375 GM in 0.9 % Sodium Chloride Mini Bag 100 ML IVPB SCH (23:36)
[2017-04-25] MEDS: Sodium Bicarbonate 150 MEQ in D5% in Water 1,000 ML IVC SCH (00:44)
[2017-04-25 01:28] LABS: Albumin/Globulin Ratio 0.9 (1.1-2.2); Bilirubin,Total 0.3 mg/dL (0.3-1.0); Calcium 8.2 mg/dL (8.6-10.3); Globulin 2.3 g/dL (2.4-3.5); Potassium 2.8 mEq/L (3.5-5.1); Total Protein 4.3 g/dL (6.4-8.9)
[2017-04-25] MEDS: *HR* Midazolam HCl 2 MG/2 ML VIAL IVP PRN ×3 (02:22→09:31)
[2017-04-25] MEDS ORDERED: Potassium Chloride Elixir 20 MEQ/15 ML UDC GTUBE ONE ×2 (02:58→12:00)
[2017-04-25 04:21] LABS: ABG Base Excess -1 mEq/L (-2 to 3); ABG HCO3 24 mEq/L (21-27); ABG Oxygen Saturation 94 % (95-98); ABG PCO2 41 mmHg (35-45); ABG PH 7.39 pH Units (7.32-7.45); ABG PO2 74 mmHg (85-104); ABG TCO2 26 mEq/L (20-26); Blood Gas Modality PRVC; Blood Gas PEEP 5 cm H2O; Blood Gas Respiration Rate 12; Blood Gas VT 500 cc
[2017-04-25] MEDS: MetroNIDAZOLE 500 MG/100 ML 500 MG/100 ML BAG IVPB SCH (05:41)
[2017-04-25 06:24] LABS: Basophils % 0.2 %; Eosinophils # 0.3 K/mcL (0.0-0.6); Eosinophils % 3.3 %; Hemoglobin 8.3 g/dL (12.9-16.9); Immature Granulocytes % 0.4 % (0-4); Lymphocytes # 0.7 K/mcL (0.6-4.6); Lymphocytes % 7.2 %; Mean Corpuscular HGB Conc 31.9 g/dL (31.6-35.5); Mean Corpuscular Hemoglobin 28.2 pg (28.0-33.3); Mean Corpuscular Volume 88.4 fL (83.0-100.0); Mean Platelet Volume 11.4 fL (9.4-12.4); Monocytes # 0.3 K/mcL (0.0-1.3); Monocytes % 3.3 %; Neutrophils # 8.1 K/mcL (1.6-8.9); Platelet Count 108 K/mcL (140-400); Red Blood Count 2.94 M/mcL (4.19-5.50); Red Cell Distribution Width 15.4 % (11.5-14.5); Segmented Neutrophils % 85.6 %
[2017-04-25 06:46] LABS: Magnesium 1.3 mg/dL (1.6-2.6); Potassium 3.8 mEq/L (3.5-5.1)
[2017-04-25] MEDS: Piperacillin/Tazobactam 3.375 GM in 0.9 % Sodium Chloride Mini Bag 100 ML IVPB SCH ×2 (07:14→13:08)
[2017-04-25] MEDS: Insulin LISPRO 300 UNITS/3 ML VIAL SQ SCH ×4 (07:17→23:28)
[2017-04-25] MEDS: Vancomycin Oral Soln 250 MG/5 ML UDC PO SCH ×4 (08:00→20:40)
[2017-04-25] MEDS ORDERED: Furosemide 40 MG/4 ML VIAL IVP ONE ×2 (08:08→15:37)
--- NOTE | 2017-04-25 08:25 | Nephrology Progress Note ---
Date of Encounter: 04/25/17 Time of Encounter: 08:23 - Assessment and Plan (1) KARI (acute kidney injury) Current Visit: No Status: Acute The patient's renal function is stable. Metabolic acidosis has improved. He now is respiratory failure and possible aspiration. I agree with discontinuing the bicarbonate infusion. He needs additional diuresis. I will leave this up to the ICU team. (2) UTI (urinary tract infection) Current Visit: No Status: Chronic Qualifiers: Urinary tract infection type: acute cystitis Hematuria presence: without hematuria Qualified Code(s): N30.00 - Acute cystitis without hematuria Subjective Principal diagnosis: Sepsis Interval history: The patient developed respiratory failure last evening and there was concern for possible aspiration. He has subsequently been intubated and is currently in the intensive care unit on the ventilator. From a renal perspective his creatinine is stable at 3.9. His bicarbonate is increased to 21. The bicarbonate drip has been discontinued. Urine output is 950 mL. Vital signs appear stable. Objective - Vital Signs Vital signs: Vital Signs Temp Pulse Resp BP Pulse Ox 04/25/17 07:58 16 131/61 94 04/25/17 07:33 97.8 F 04/25/17 07:30 62 04/25/17 07:00 64 15 130/67 98 04/25/17 06:00 62 16 134/65 97 04/25/17 05:37 14 128/62 97 04/25/17 05:00 62 16 143/71 97 04/25/17 04:45 98 F 04/25/17 04:00 62 16 131/71 96 04/25/17 03:44 15 113/58 99 04/25/17 03:00 60 14 93/57 96 04/25/17 02:00 60 16 116/69 97 04/25/17 01:01 18 136/73 98 04/25/17 01:00 62 20 136/73 97 04/25/17 00:39 98.4 F 04/25/17 00:00 60 17 112/67 94 04/24/17 23:21 15 143/77 89 04/24/17 23:00 62 20 143/77 98 04/24/17 22:00 66 16 137/82 100 04/24/17 21:45 84 16 99/70 100 04/24/17 21:42 14 83/46 92 04/24/17 21:30 97.8 F 84 16 83/46 98 04/24/17 21:26 99 F 110 26 91/60 72 04/24/17 16:14 99.0 F 76 18 156/76 96 04/24/17 10:18 97.7 F 91 18 149/80 95 Intake and Output 04/24/17 04/25/17 04/25/17 23:59 07:59 15:59 Intake Total 250 / 250 1350 / 1350 Output Total 500 / 500 600 / 600 Balance -250 / -250 750 / 750 Intake: IV Fluids 1300 / 1300 Sodium Bicarbonate 150 MEQ In 600 / 600 Dextrose 5% 1,000 ML @ 50 mls/ hr IVC .Q23H ALESSANDRA Rx#:[id number] Flagyl Premix 500 MG/100 ML 500 200 / 200 mg In 100 ml @ 100 mls/hr IVPB Q6HR ALESSANDRA Rx#:[id number] Zosyn 3.375 GM In 0.9 % Sodium 100 / 100 Chloride (Mini-Bag +) 100 ML @ 25 mls/hr IVPB Q8HR ALESSANDRA Rx#: [id number] Potassium Chloride 10 mEq/100mL 400 / 400 10 meq In 100 ml @ 100 mls/hr IVPB Q1H PRN Rx#:[id number] Oral 250 / 250 Free Water 50 / 50 Output: Rectal Tube 200 / 200 Catheter 500 / 500 400 / 400 Other: Stool Size Moderate Stool Consistency loose Stool Characteristics Mucoid Stool Color Brown Green Weight 62.9 kg Blood Glucose* 278 245 Patient Weight 04/25/17 23:59 Weight 62.9 kg - General Appearance Exam: Patient is currently on the ventilator. He is in no acute distress. Lungs coarse breath sounds. Heart regular rate and rhythm. Abdomen is benign. There is lower extremity swelling as well as upper extremity swelling. - Lab 04/25/17 06:08 04/25/17 06:08 Most recent lab results ABG pH 7.39 pH Units (7.32-7.45) 04/25/17 04:18 ABG pCO2 41 mmHg (35-45) 04/25/17 04:18 ABG pO2 74 mmHg (85-104) L D 04/25/17 04:18 ABG HCO3 24 mEq/L (21-27) 04/25/17 04:18 ABG O2 Saturation 94 % (95-98) L 04/25/17 04:18 Calcium 8.0 mg/dL (8.6-10.3) L 04/25/17 06:08 Magnesium 1.3 mg/dL (1.6-2.6) L 04/25/17 06:08 - VTE Documentation of Mechanical Device: Intermittent pneumatic compression device Consult Discharge Plan - Plan Referrals: Cecil Carter MD [Primary Care Provider] -
--- NOTE | 2017-04-25 08:33 | Pulmonology Consult Note ---
<Randall Son - Last Filed: 04/25/17 14:01> Date of Encounter: 04/25/17 Time of Encounter: 08:33 Assessment and Plan (1) Respiratory failure with hypoxia Current Visit: Yes Status: Acute Acute on chronic respiratory failure with hypoxia and hypercarbia Patient remains intubated at this time Chest x-ray does demonstrate pulmonary vascular edema This is likely secondary to decompensated CHF, as well as possibly an aspiration pneumonia He is saturating appropriately at this time Repeat ABG does demonstrate pH 7.39, PCO2 41, PO2 of 74, HCO3 24 Due to his renal status, it is important that we are careful with our diuresis Plan: 40 mg IV Lasix now Continue Zosyn for possible aspiration pneumonia Discontinue vancomycin, Flagyl, fluconazole Repeat sputum culture Consider bronchoscopy with BAL in the morning if the patient does not show significant improvement Qualifiers: Chronicity: acute Qualified Code(s): J96.01 - Acute respiratory failure with hypoxia (2) [id number] kidney injury Current Visit: Yes Status: Acute Acute on chronic kidney disease 3-4 baseline creat prior to Jan 2017 1.4-2.0, GFR 23-50. Renal function seems to be worsening throughout the duration of admission Serum creatinine 3.92, estimated GFR 16 The patient requires significant diuresis due to fluid overload status, however his kidneys may not be able to tolerate this appropriately He is followed by Dr. Loyd for nephrology We will gently diurese this patient and follow any nephrology recommendations in the meantime Qualifiers: Acute renal failure type: unspecified Chronic kidney disease stage: stage 3 (moderate) Qualified Code(s): N17.9 - Acute kidney failure, unspecified; N18.3 - Chronic kidney disease, stage 3 (moderate); N18.3 - Chronic kidney disease, stage 3 (moderate) (3) C. difficile diarrhea Current Visit: Yes Status: Acute The patient remains on by mouth Vancomycin Fecal output is low at this time (4) Anemia Current Visit: No Status: Acute Likely secondary to chronic disease Hemoglobin 8.3, MCV 88 We will continue to monitor the patient's RBC and hemoglobin Qualifiers: Anemia type: due to chronic kidney disease Chronic kidney disease stage: stage 5, not on chronic dialysis Qualified Code(s): N18.5 - Chronic kidney disease, stage 5; D63.1 - Anemia in chronic kidney disease; D63.1 - Anemia in chronic kidney disease (5) Diabetes Current Visit: Yes Status: Chronic Diabetes mellitus with hyperglycemia The patient is NPO due to ET Tube We will do q4h accuchecks with low dose SSI Qualifiers: Diabetes mellitus type: type 2 Diabetes mellitus complication status: with hyperglycemia Diabetes mellitus termite treater insulin use: with longterm use Qualified Code(s): E11.65 - Type 2 diabetes mellitus with hyperglycemia; Z79.4 - assistant terminal manager (current) use of insulin; Z79.4 - correction (current) use of insulin ; Z79.4 - assistant terminal manager (current) use of insulin; Z79.4 - correction (current) use of insulin (6) Protein calorie malnutrition Current Visit: Yes Status: Acute Significant malnutrition The patient is unable to tolerate PO intake due to dysphagia, aspiration pna GI is consulted for insertion of PEG tube, which family has requested Qualifiers: Protein-calorie malnutrition severity: unspecified severity Qualified Code( s): E46 - Unspecified protein-calorie malnutrition (7) DVT prophylaxis Current Visit: No Status: Acute SQ Heparin History of Present Illness Consult date: 04/25/17 Requesting physician: Tata Justice Reason for consult: dyspnea, pneumonia Chief complaint: Respiratory failure History of present illness: Mr. Miranda is a 61-year-old gentleman who was recently seen in the ICU with severe sepsis, UTI and pneumonia. He does have a history of CVA, dementia, diabetes, hypertension, hyperlipidemia, cirrhosis and altered mental status at baseline. He was treated in the ICU drip for a metabolic acidosis with respiratory acidosis, hypoxic respiratory failure, septic shock and severe KARI. The patient was extubated successfully on 04/16-4 L on nasal cannula. The patient also did have MRSA in the sputum and vancomycin was restarted. The patient eventually had approximately 12 days of vancomycin, however he began to have respiratory distress again in the evening/speech therapist early intervention. At that time a rapid response was called and she required intubation to stabilize respiratory status. Repeat chest x-ray at that time does demonstrate the patient has significant pulmonary vascular edema suggestive of decompensated CHF. He was transferred back to the ICU for treatment. Past Med Surg Social Fam HX - Past Medical History Medical history: CVA, dementia, diabetes, hyperlipidemia, hypertension, renal disease, other Psychiatric history: depression, prior suicide attempt - Past Surgical History Surgical History: hip replacement, orthopedic, other, other - Social History Smoking Status: Never smoker Smokeless Tobacco Status: No Alcohol use: none Drug use: none - Family History Mother Living Status: Still Living Hx Family Cardiac Disorders: Yes (A-fib s/p pacemaker) Hx Family Endocrine Disorder: Yes (DM) Father Living Status: Hx Family Cardiac Disorders: Yes (heart disease) Hx Family Respiratory Disorders: No Hx Family Cancer: No Hx Family GI Disorders: No Hx Family Endocrine Disorder: No Hx Family Neuromuscular Disorders: No Hx Family Neurologic Disorders: No Hx Family HEENT Disorders: No Hx Family Autoimmune Disorders: No Brother Living Status: Hx Family Cardiac Disorders: Yes ([place]) Hx Family Endocrine Disorder: Yes (DM) Medications and Allergies Cyclosporine [Restasis] 1 drop BOTH EYES BID 11/28/16 [History] Insulin LISPRO [HumaLOG] 0 unit SQ AD 11/28/16 [History] Loratadine [Allergy Relief] 10 mg PO DAILY PRN 11/28/16 [History] Sucralfate [Carafate] 1 gm PO TID #1 bottle 12/03/16 [Rx] DULoxetine [Cymbalta] 30 mg PO DAILY 02/15/17 [History] hydrALAZINE [HydrALAZINE] 25 mg PO Q8HR #90 tablet 03/29/17 [Rx] Amlodipine Besylate 10 mg PO DAILY 04/14/17 [History] Amoxicillin/Clavulanate [Augmentin] 500 mg PO BID 04/14/17 [History] Erythromycin OPTH Oint 1 appl OP HS 04/14/17 [History] Glucagon,Human Recombinant [Glucagen] 1 mg IM Q30MIN PRN 04/14/17 [History] Mirtazapine [Remeron] 30 mg PO HS 04/14/17 [History] Omeprazole [PriLOSEC] 40 mg PO BID 04/14/17 [History] Polyvinyl Alcohol [Artificial Tears] 1 drop BOTH EYES TID 04/14/17 [History] 3 Allergy/AdvReac Type Severity Reaction Status Date / Time aspirin Allergy Rash Verified 02/15/17 02:44 pseudoephedrine Allergy Rash Verified 02/15/17 02:44 [From Sudafed] morphine AdvReac See Verified 04/14/17 11:30 Comments ROS unobtainable: due to endotracheal tube All Systems: The remainder of the systems were reviewed and are negative Physical Examination Vital Signs: Vital Signs, Last 4 Hours Temp Pulse Resp BP Pulse Ox 04/25/17 07:58 16 131/61 94 04/25/17 07:33 97.8 F 04/25/17 07:30 62 04/25/17 07:00 64 15 130/67 98 04/25/17 06:00 62 16 134/65 97 04/25/17 05:37 14 128/62 97 04/25/17 05:00 62 16 143/71 97 04/25/17 04:45 98 F General appearance: no acute distress, asleep Eyes: nonicteric ENT: oropharynx moist Mallampati (class): 2 Neck: supple Effort: normal Inspection: normal Auscultation: bilateral: diminished breath sounds, rales (Fine rales bibasilarly ) Cardiovascular: regular rate and rhythm, murmur noted (2/6 systolic ejection murmur) Gastrointestinal: soft, non-tender, non-distended Integumentary: normal Extremities: no cyanosis, no clubbing, pink and warm, edema (3+ edema enlarged ovaries with some edema in the hands as well), other (There are stage 1 pressure ulcers present on posterior heels b/l without obvious signs of infection or open skin lesions) Musculoskeletal: no deformities pupils equal and round, unable to assess due to mental status Ventilator Settings Ventilator Settings: Ventilator Settings, Last 8 Hours Ventilator Mode VC+ Ventilator Mode VC+ Ventilator Mode VC+ Ventilator Mode VC+ Ventilator Mode VC+ Ventilator Mode VC+ Ventilator Mode VC+ Ventilator Mode VC+ Ventilator Mode VC+ Ventilator Tidal Volume 450 Setting Ventilator Tidal Volume 500 Setting Ventilator Tidal Volume 500 Setting Ventilator Tidal Volume 500 Setting Ventilator Tidal Volume 500 Setting Ventilator Tidal Volume 500 Setting Ventilator Tidal Volume 500 Setting Ventilator Tidal Volume 500 Setting Ventilator Tidal Volume 500 Setting Ventilator Respiratory Rate 16 Setting Ventilator Respiratory Rate 12 Setting Ventilator Respiratory Rate 12 Setting Ventilator Respiratory Rate 12 Setting Ventilator Respiratory Rate 12 Setting Ventilator Respiratory Rate 12 Setting Ventilator Respiratory Rate 12 Setting Ventilator Respiratory Rate 12 Setting Ventilator Respiratory Rate 12 Setting Actual Respiratory Rate 16 Actual Respiratory Rate 15 Actual Respiratory Rate 14 Actual Respiratory Rate 15 Actual Respiratory Rate 18 Positive End Expiratory 5 Pressure Positive End Expiratory 5 Pressure Positive End Expiratory 5 Pressure Positive End Expiratory 5 Pressure Positive End Expiratory 5 Pressure Positive End Expiratory 5 Pressure Positive End Expiratory 5 Pressure Positive End Expiratory 5 Pressure Positive End Expiratory 5 Pressure Peak Inspiratory Airway 23 Pressure Peak Inspiratory Airway 25 Pressure Peak Inspiratory Airway 22 Pressure Peak Inspiratory Airway 21 Pressure Peak Inspiratory Airway 20 Pressure Peak Inspiratory Airway 21 Pressure Peak Inspiratory Airway 27 Pressure Peak Inspiratory Airway 19 Pressure Results - Laboratory Findings CBC and BMP: 04/25/17 06:08 04/25/17 08:49 ABG ABG pH 7.39 pH Units (7.32-7.45) 04/25/17 04:18 ABG pCO2 41 mmHg (35-45) 04/25/17 04:18 ABG pO2 74 mmHg (85-104) L D 04/25/17 04:18 ABG O2 Saturation 94 % (95-98) L 04/25/17 04:18 PT/INR, D-dimer PT 10.5 Seconds (9.4-12.1) 04/14/17 10:25 Abnormal lab findings: Abnormal lab results RBC 2.94 M/mcL (4.19-5.50) L 04/25/17 06:08 Hgb 8.3 g/dL (12.9-16.9) L 04/25/17 06:08 Hct 26.0 % (37.5-50.1) L 04/25/17 06:08 RDW 15.4 % (11.5-14.5) H 04/25/17 06:08 Plt Count 108 K/mcL (140-400) L 04/25/17 06:08 Nucleated RBCs/100 WBC 0.6 /100 WBC (0) H 04/20/17 04:33 Platelet Estimate Slight Decrease (Normal) L 04/16/17 04:40 Hypochromasia Present (Not Present) A 04/16/17 04:40 APTT 83.0 Seconds (26.0-36.0) H 04/14/17 10:25 ABG pO2 74 mmHg (85-104) L D 04/25/17 04:18 ABG O2 Saturation 94 % (95-98) L 04/25/17 04:18 Chloride 109 mEq/L (98-107) H 04/25/17 06:08 Carbon Dioxide 21 mEq/L (23-29) L 04/25/17 06:08 BUN 57 mg/dL (8-23) H 04/25/17 06:08 Creatinine 3.92 mg/dL (0.70-1.30) H 04/25/17 06:08 Est GFR ( Amer) 19 (> 60) L 04/25/17 06:08 Est GFR (Non-Af Amer) 16 (> 60) L 04/25/17 06:08 Glucose 248 mg/dL (70-105) H 04/25/17 06:08 POC Glucose 278 (58-89) H 04/24/17 22:07 Calculated Osmolality 318 (280-300) H 04/25/17 06:08 Calcium 8.0 mg/dL (8.6-10.3) L 04/25/17 06:08 Magnesium 1.3 mg/dL (1.6-2.6) L 04/25/17 06:08 AST 6 Units/L (13-39) L 04/25/17 00:47 ALT 4 Units/L (7-52) L 04/25/17 00:47 Alkaline Phosphatase 145 Units/L (34-104) H 04/25/17 00:47 Serum Total Protein 4.3 g/dL (6.4-8.9) L 04/25/17 00:47 Albumin 2.0 g/dL (3.5-5.7) L 04/25/17 00:47 Globulin 2.3 g/dL (2.4-3.5) L 04/25/17 00:47 Albumin/Globulin Ratio 0.9 (1.1-2.2) L 04/25/17 00:47 Urine Clarity Turbid (Clear) A 04/22/17 07:30 Urine Protein 100 mg/dL (Neg-Trace) H 04/22/17 07:30 Urine Blood Large (Negative) H 04/22/17 07:30 Ur Leukocyte Esterase Large (Negative) H 04/22/17 07:30 Urine Microscopic RBC TNTC per hpf (0-3) H 04/22/17 07:30 Urine Microscopic WBC TNTC per hpf (0-3) H 04/22/17 07:30 Ur Squamous Epith Cells Many per lpf (None-Few) H 04/22/17 07:30 - Microbiology Findings Microbiology Findings: Microbiology, Last 48 Hours 04/23/17 01:15 Urine Culture - Final Urine,[place] tropical[place] - Diagnostic Findings Chest x-ray: image reviewed CT scan - chest: report reviewed - Clinical Findings Intake & Output: Intake & Output 04/24/17 04/25/17 04/25/17 23:59 07:59 15:59 Intake Total 250 / 250 1350 / 1350 Output Total 500 / 500 600 / 600 Balance -250 / -250 750 / 750 Weight 62.9 kg Consult Discharge Plan - Plan Referrals: Cecil Carter MD [Primary Care Provider] - <Derrick Pedro Wade - Last Filed: 04/25/17 22:01> Date of Encounter: 04/25/17 All Systems: The remainder of the systems were reviewed and are negative Physical Examination Vital Signs: Vital Signs, Last 4 Hours Temp Pulse Resp BP Pulse Ox 04/25/17 21:38 20 125/68 95 04/25/17 21:00 53 16 111/53 97 04/25/17 20:00 58 16 96/54 96 04/25/17 19:55 16 128/66 99 04/25/17 19:00 97.3 F L 56 16 125/74 100 04/25/17 18:00 56 17 133/69 100 Ventilator Settings Ventilator Settings: Ventilator Settings, Last 8 Hours Ventilator Mode VC+ Ventilator Mode VC+ Ventilator Mode VC+ Ventilator Mode VC+ Ventilator Mode VC+ Ventilator Mode VC+ Ventilator Mode VC+ Ventilator Mode VC+ Ventilator Mode VC+ Ventilator Mode VC+ Ventilator Mode VC+ Ventilator Mode VC+ Ventilator Tidal Volume 450 Setting Ventilator Tidal Volume 450 Setting Ventilator Tidal Volume 450 Setting Ventilator Tidal Volume 450 Setting Ventilator Tidal Volume 450 Setting Ventilator Tidal Volume 450 Setting Ventilator Tidal Volume 450 Setting Ventilator Tidal Volume 450 Setting Ventilator Tidal Volume 450 Setting Ventilator Tidal Volume 450 Setting Ventilator Tidal Volume 450 Setting Ventilator Tidal Volume 450 Setting Ventilator Respiratory Rate 16 Setting Ventilator Respiratory Rate 16 Setting Ventilator Respiratory Rate 16 Setting Ventilator Respiratory Rate 16 Setting Ventilator Respiratory Rate 16 Setting Ventilator Respiratory Rate 16 Setting Ventilator Respiratory Rate 16 Setting Ventilator Respiratory Rate 16 Setting Ventilator Respiratory Rate 16 Setting Ventilator Respiratory Rate 16 Setting Ventilator Respiratory Rate 10 Setting Ventilator Respiratory Rate 16 Setting Actual Respiratory Rate 16 Actual Respiratory Rate 16 Actual Respiratory Rate 16 Actual Respiratory Rate 16 Actual Respiratory Rate 16 Actual Respiratory Rate 17 Actual Respiratory Rate 16 Actual Respiratory Rate 16 Actual Respiratory Rate 16 Actual Respiratory Rate 16 Actual Respiratory Rate 16 Actual Respiratory Rate 16 Positive End Expiratory 8 Pressure Positive End Expiratory 8 Pressure Positive End Expiratory 8 Pressure Positive End Expiratory 10 Pressure Positive End Expiratory 10 Pressure Positive End Expiratory 10 Pressure Positive End Expiratory 10 Pressure Positive End Expiratory 10 Pressure Positive End Expiratory 10 Pressure Positive End Expiratory 10 Pressure Positive End Expiratory 17 Pressure Positive End Expiratory 10 Pressure Peak Inspiratory Airway 26 Pressure Peak Inspiratory Airway 27 Pressure Peak Inspiratory Airway 25 Pressure Peak Inspiratory Airway 28 Pressure Peak Inspiratory Airway 28 Pressure Peak Inspiratory Airway 26 Pressure Peak Inspiratory Airway 27 Pressure Peak Inspiratory Airway 27 Pressure Peak Inspiratory Airway 27 Pressure Peak Inspiratory Airway 27 Pressure Peak Inspiratory Airway 26 Pressure Peak Inspiratory Airway 31 Pressure Results - Laboratory Findings CBC and BMP: 04/25/17 06:08 04/25/17 20:59 ABG ABG pH 7.39 pH Units (7.32-7.45) 04/25/17 04:18 ABG pCO2 41 mmHg (35-45) 04/25/17 04:18 ABG pO2 74 mmHg (85-104) L D 04/25/17 04:18 ABG O2 Saturation 94 % (95-98) L 04/25/17 04:18 PT/INR, D-dimer PT 10.5 Seconds (9.4-12.1) 04/14/17 10:25 Abnormal lab findings: Abnormal lab results RBC 2.94 M/mcL (4.19-5.50) L 04/25/17 06:08 Hgb 8.3 g/dL (12.9-16.9) L 04/25/17 06:08 Hct 26.0 % (37.5-50.1) L 04/25/17 06:08 RDW 15.4 % (11.5-14.5) H 04/25/17 06:08 Plt Count 108 K/mcL (140-400) L 04/25/17 06:08 Nucleated RBCs/100 WBC 0.6 /100 WBC (0) H 04/20/17 04:33 Platelet Estimate Slight Decrease (Normal) L 04/16/17 04:40 Hypochromasia Present (Not Present) A 04/16/17 04:40 APTT 83.0 Seconds (26.0-36.0) H 04/14/17 10:25 ABG pO2 74 mmHg (85-104) L D 04/25/17 04:18 ABG O2 Saturation 94 % (95-98) L 04/25/17 04:18 Chloride 113 mEq/L (98-107) H 04/25/17 20:59 BUN 58 mg/dL (8-23) H 04/25/17 20:59 Creatinine 4.07 mg/dL (0.70-1.30) H 04/25/17 20:59 Est GFR ( Amer) 18 (> 60) L 04/25/17 20:59 Est GFR (Non-Af Amer) 15 (> 60) L 04/25/17 20:59 Glucose 148 mg/dL (70-105) H 04/25/17 20:59 POC Glucose 278 (58-89) H 04/24/17 22:07 Calculated Osmolality 317 (280-300) H 04/25/17 20:59 Calcium 8.3 mg/dL (8.6-10.3) L 04/25/17 20:59 Magnesium 1.3 mg/dL (1.6-2.6) L 04/25/17 06:08 AST 6 Units/L (13-39) L 04/25/17 00:47 ALT 4 Units/L (7-52) L 04/25/17 00:47 Alkaline Phosphatase 145 Units/L (34-104) H 04/25/17 00:47 Serum Total Protein 4.3 g/dL (6.4-8.9) L 04/25/17 00:47 Albumin 2.0 g/dL (3.5-5.7) L 04/25/17 00:47 Globulin 2.3 g/dL (2.4-3.5) L 04/25/17 00:47 Albumin/Globulin Ratio 0.9 (1.1-2.2) L 04/25/17 00:47 Urine Clarity Turbid (Clear) A 04/22/17 07:30 Urine Protein 100 mg/dL (Neg-Trace) H 04/22/17 07:30 Urine Blood Large (Negative) H 04/22/17 07:30 Ur Leukocyte Esterase Large (Negative) H 04/22/17 07:30 Urine Microscopic RBC TNTC per hpf (0-3) H 04/22/17 07:30 Urine Microscopic WBC TNTC per hpf (0-3) H 04/22/17 07:30 Ur Squamous Epith Cells Many per lpf (None-Few) H 04/22/17 07:30 - Microbiology Findings Microbiology Findings: Microbiology, Last 48 Hours 04/25/17 09:53 Sputum Culture - Preliminary Sputum 04/23/17 01:15 Urine Culture - Final Urine,[place] tropical[place] - Clinical Findings Intake & Output: Intake & Output 04/25/17 04/25/17 04/25/17 07:59 15:59 23:59 Intake Total 1350 / 1350 0 / 0 100 / 100 Output Total 600 / 600 300 / 300 300 / 300 Balance 750 / 750 -300 / -300 -200 / -200 Weight 62.9 kg - Attending Attestation I saw and evaluated this patient and my medical decision-making was reviewed with the Resident Physician. I agree with the documented findings, disposition and treatment plan as described except to the extent set forth below. We independently had [id number] contact with the patient I spent 40 minutes of Critical Care time with this patient. It involved decision making of high complexity to assess, manipulate, and support vital organ system failure and/or to prevent further life threatening deterioration of the patient's condition. The time involved in the performance of separately reportable procedures was not counted toward critical care time. Patient seen and examined at bedside Labs, radiology, chart personally reviewed. Management was reviewed during multidisciplinary critical care rounds. MYCOLOGIST:Patient is alert follows commands he is on prn sedatives and analgesics Pulm:Patient is hypoxic on ventilator adjusted tidal volume and RR for lung protective strategy and adjusted PEEP to optimize oxygenation the main reason for V/Q mismatch is pulmonary edema and possible aspiration pneumonia Cards:Patient is hemodynamically stable diuresis as tolerated as patient has decompensated heart failure FEN-GI:As per dietary recs Renal:KARI , Renal following OK for diuresis ID:To cover for C diff diarrhea to continue aspiration coverage of antibiotics Heme/Onc:reviewed , DVT prophylaxis Endo: Glucose Monitored Integ/MSK: Skin Care per routine ICU Nursing Protocol to prevent ulcers. Lines: All lines examined without evidence of infection : Dispo: Critically hypoxic respiratory failure needs ventilatory support CODE: Full Code
[2017-04-25] MEDS ORDERED: Chlorhexidine Rinse 15 ML MOUTHWASH MM SCH (09:00)
[2017-04-25] MEDS ORDERED: Chlorhexidine Rinse 15 ML MOUTHWASH ONE (09:24)
[2017-04-25] MEDS: Chlorhexidine Rinse 15 ML MOUTHWASH MM SCH ×2 (09:26→20:39)
[2017-04-25] MEDS ORDERED: Insulin LISPRO 300 UNITS/3 ML VIAL SQ SCH (12:00)
--- NOTE | 2017-04-25 12:11 | Gastroenterology Consult Note ---
<Randall Rivera Estuardo - Last Filed: 04/25/17 12:09> Date of Encounter: 04/25/17 Time of Encounter: 11:20 - Assessment and plan (1) Severe protein-calorie malnutrition Current Visit: No Status: Chronic Assessment and plan: Plan for PEG tube insertion per patient and family wishes. (2) Respiratory failure with hypoxia Current Visit: Yes Status: Acute Qualifiers: Chronicity: acute Qualified Code(s): J96.01 - Acute respiratory failure with hypoxia (3) C. difficile diarrhea Current Visit: Yes Status: Acute Assessment and plan: Continue PO Vancomycin. (4) MRSA pneumonia Current Visit: Yes Status: Acute Qualifiers: Laterality: bilateral Lung location: unspecified part of lung Qualified Code(s): J15.212 - Pneumonia due to Methicillin resistant Staphylococcus aureus - Time Spent With Patient Total time spent is greater than 50% in coordination of care (as documented) at patient's floor/unit and/or counseling patient: GI History of Present Illness - Data of Consult Patient: known to practice within the last 3 years Consult date: 04/25/17 Requesting Physician: Wyatt Dominguez DO - Consult Narrative Reason for consult: PEG tube History of present illness: Mr. Neal is a 61 year old male with PMHx of CVA, dementia, DM, HLD, HTN, renal disease who presented with altered mental status, hypotension, and respiratory distress. Information obtained from chart review. No family at bedside. Pt is intubated and sedated. We were consulted for PEG tube insertion. Patient wishes to have a PEG tube placed per discussions with Palliative team yesterday and this was confirmed with the patient's medical power of research attorney that they concur. Procedures: EGD 11/30/2016 Dr. Santos: LA Grade D esophagitis, medium hiatal hernia , recommended repeat in 3 months. Colonoscopy 03/2014 Dr. Santos: Rectal ulceration, nonspecific colitis, diverticulosis. EGD 03/2014 Dr. Santos: Normal NSAIDs: None Anticoagulation: None Past Med Surg Social Fam HX - Past Medical History Medical history: CVA, dementia, diabetes, hyperlipidemia, hypertension, renal disease, other Psychiatric history: depression, prior suicide attempt - Past Surgical History Surgical History: hip replacement, orthopedic, other, other - Social History Smoking Status: Never smoker Smokeless Tobacco Status: No Alcohol use: none Drug use: none - Family History Mother Living Status: Still Living Hx Family Cardiac Disorders: Yes (A-fib s/p pacemaker) Hx Family Endocrine Disorder: Yes (DM) Father Living Status: Hx Family Cardiac Disorders: Yes (heart disease) Hx Family Respiratory Disorders: No Hx Family Cancer: No Hx Family GI Disorders: No Hx Family Endocrine Disorder: No Hx Family Neuromuscular Disorders: No Hx Family Neurologic Disorders: No Hx Family HEENT Disorders: No Hx Family Autoimmune Disorders: No Brother Living Status: Hx Family Cardiac Disorders: Yes ([place]) Hx Family Endocrine Disorder: Yes (DM) ROS unobtainable: due to endotracheal tube - Constitutional Vitals: Temp Pulse Resp BP Pulse Ox 97.5 F L 55 16 78/50 100 04/25/17 11:51 04/25/17 12:00 04/25/17 12:00 04/25/17 12:00 04/25/17 12:00 Exam: Intubated and sedated. - Head Head exam: Present: atraumatic, normocephalic - Eye Eye exam: Present: normal appearance, sclera anicteric - ENT Additional comments: ET and OG tube in place - Neck Neck exam general surgery: Present: normal inspection, trachea midline - Respiratory Additional comments: Mechanical breath sounds - Cardiovascular Cardiovascular exam: Present: RRR, +S1, +S2 - GI/Abdominal GI/Abdominal exam: Present: soft, no peritoneal signs. Absent: distended, firm , guarding - Rectal Rectal exam: Present: deferred - Extremities Exam Extremities exam: Present: warm - Neurological Exam Additional comments: Sedated. - Skin Skin exam: Present: dry, intact, normal color, warm Results - Labs CBC & Chem 7: 04/25/17 06:08 04/25/17 08:49 Labs: Last Result Calcium 8.0 mg/dL (8.6-10.3) L 04/25/17 06:08 Troponin I < 0.03 ng/mL (< 0.04) 04/14/17 10:18 Stool Occult Blood Negative (Negative) 04/22/17 10:20 Entire Visit Hgb 8.3 g/dL (12.9-16.9) L 04/25/17 06:08 Hct 26.0 % (37.5-50.1) L 04/25/17 06:08 PT 10.5 Seconds (9.4-12.1) 04/14/17 10:25 Total Bilirubin 0.3 mg/dL (0.3-1.0) 04/25/17 00:47 AST 6 Units/L (13-39) L 04/25/17 00:47 ALT 4 Units/L (7-52) L 04/25/17 00:47 - ABG ABG results: ABG ABG pH 7.39 pH Units (7.32-7.45) 04/25/17 04:18 ABG pCO2 41 mmHg (35-45) 04/25/17 04:18 ABG pO2 74 mmHg (85-104) L D 04/25/17 04:18 ABG O2 Saturation 94 % (95-98) L 04/25/17 04:18 PT/INR, D-dimer PT 10.5 Seconds (9.4-12.1) 04/14/17 10:25 - Impressions Impressions Chest X-Ray 04/24/17 22:34 IMPRESSION: Endotracheal tube tip is in a relatively inferior position, located approximately 1.8 cm above the mane. Withdrawal of that by approximately 1-2 cm should be considered. Increasing patchy consolidation throughout both lungs, suggesting multifocal pneumonia versus edema. D/ / Stanley Arguello MD / Stanley Arguello MD Interpreting Provider: Stanley Arguello MD Consult Discharge Plan - Plan Referrals: Cecil Carter MD [Primary Care Provider] - <Adán Santos - Last Filed: 04/25/17 19:59> Date of Encounter: 04/25/17 Time of Encounter: 19:00 - Time Spent With Patient Total time spent is greater than 50% in coordination of care (as documented) at patient's floor/unit and/or counseling patient: GI History of Present Illness - Data of Consult Requesting Physician: Wyatt Dominguez DO - Consult Narrative History of present illness: Mr. Neal is a 61 year old male - Constitutional Vitals: Temp Pulse Resp BP Pulse Ox 97.6 F 56 16 128/66 99 04/25/17 15:46 04/25/17 18:00 04/25/17 19:55 04/25/17 19:55 04/25/17 19:55 Results - Labs CBC & Chem 7: 04/25/17 06:08 04/25/17 08:49 Labs: Last Result Calcium 8.0 mg/dL (8.6-10.3) L 04/25/17 06:08 Troponin I < 0.03 ng/mL (< 0.04) 04/14/17 10:18 Stool Occult Blood Negative (Negative) 04/22/17 10:20 Entire Visit Hgb 8.3 g/dL (12.9-16.9) L 04/25/17 06:08 Hct 26.0 % (37.5-50.1) L 04/25/17 06:08 PT 10.5 Seconds (9.4-12.1) 04/14/17 10:25 Total Bilirubin 0.3 mg/dL (0.3-1.0) 04/25/17 00:47 AST 6 Units/L (13-39) L 04/25/17 00:47 ALT 4 Units/L (7-52) L 04/25/17 00:47 - ABG ABG results: ABG ABG pH 7.39 pH Units (7.32-7.45) 04/25/17 04:18 ABG pCO2 41 mmHg (35-45) 04/25/17 04:18 ABG pO2 74 mmHg (85-104) L D 04/25/17 04:18 ABG O2 Saturation 94 % (95-98) L 04/25/17 04:18 PT/INR, D-dimer PT 10.5 Seconds (9.4-12.1) 04/14/17 10:25 - Impressions Impressions Chest X-Ray 04/24/17 22:34 IMPRESSION: Endotracheal tube tip is in a relatively inferior position, located approximately 1.8 cm above the mane. Withdrawal of that by approximately 1-2 cm should be considered. Increasing patchy consolidation throughout both lungs, suggesting multifocal pneumonia versus edema. D/ / Stanley Arguello MD / Stanley Arguello MD Interpreting Provider: Stanley Arguello MD - Attending Attestation I have personally performed a face to face evaluation on this patient. I have reviewed and agree with the care plan. History and Exam by me shows: Patient is currently on the vent and respiratory status is not stable. He will have a PEG tube place once he is more clinically stable
[2017-04-25] MEDS ORDERED: *HR* FentaNYL (PF) 100 MCG/2 ML VIAL IVP SCH (13:15)
[2017-04-25] MEDS ORDERED: Aminoglycoside Consult 1 EACH MC ONE (13:33)
[2017-04-25] MEDS: *HR* FentaNYL (PF) 100 MCG/2 ML VIAL IVP PRN ×2 (14:09→21:46)
[2017-04-25] MEDS: *HR* Dextrose 50 % in Water (Syg) 50 ML SYRINGE IVP PRN (15:45)
[2017-04-25] MEDS: *HR* Heparin 5,000 UNIT/ML VIAL SQ SCH (16:16)
[2017-04-25 16:44] LABS: Sodium, Urine 99.1 mEq/L
[2017-04-25 21:28] LABS: Calcium 8.3 mg/dL (8.6-10.3); Potassium 3.7 mEq/L (3.5-5.1)
[2017-04-26] MEDS: *HR* Midazolam HCl 2 MG/2 ML VIAL IVP PRN ×3 (01:17→23:47)
[2017-04-26] MEDS: Piperacillin/Tazobactam 3.375 GM in 0.9 % Sodium Chloride Mini Bag 100 ML IVPB SCH ×2 (01:17→17:37)
[2017-04-26 03:52] LABS: ABG Base Excess -3 mEq/L (-2 to 3); ABG HCO3 22 mEq/L (21-27); ABG Oxygen Saturation 96 % (95-98); ABG PCO2 35 mmHg (35-45); ABG PO2 80 mmHg (85-104); ABG TCO2 23 mEq/L (20-26); Blood Gas Modality PRVC; Blood Gas PEEP 8 cm H2O; Blood Gas Respiration Rate 16; Blood Gas VT 450 cc
[2017-04-26] MEDS: Insulin LISPRO 300 UNITS/3 ML VIAL SQ SCH ×6 (04:38→23:47)
[2017-04-26 05:22] LABS: Albumin 1.7 g/dL (3.5-5.7); Albumin/Globulin Ratio 0.7 (1.1-2.2); Bilirubin,Total 0.4 mg/dL (0.3-1.0); Calcium 8.2 mg/dL (8.6-10.3); Globulin 2.3 g/dL (2.4-3.5); Magnesium 1.6 mg/dL (1.6-2.6); Monocytes % 4.3 %; Potassium 3.6 mEq/L (3.5-5.1)
[2017-04-26 05:23] LABS: Basophils % 0.6 %; Eosinophils # 0.3 K/mcL (0.0-0.6); Eosinophils % 5.4 %; Hematocrit 24.3 % (37.5-50.1); Hemoglobin 7.7 g/dL (12.9-16.9); Immature Granulocytes % 0.3 % (0-4); Immature Platelets 6.7 % (1.1-6.1); Lymphocytes # 0.8 K/mcL (0.6-4.6); Lymphocytes % 11.9 %; Mean Corpuscular HGB Conc 31.7 g/dL (31.6-35.5); Mean Corpuscular Hemoglobin 28.1 pg (28.0-33.3); Mean Corpuscular Volume 88.7 fL (83.0-100.0); Mean Platelet Volume 11.8 fL (9.4-12.4); Monocytes # 0.3 K/mcL (0.0-1.3); Neutrophils # 4.9 K/mcL (1.6-8.9); Red Blood Count 2.74 M/mcL (4.19-5.50); Red Cell Distribution Width 15.6 % (11.5-14.5); Segmented Neutrophils % 77.5 %
[2017-04-26 05:30] LABS: Platelet Count 98 K/mcL (140-400)
[2017-04-26] MEDS: *HR* Heparin 5,000 UNIT/ML VIAL SQ SCH ×2 (05:32→17:38)
[2017-04-26] MEDS: *HR* FentaNYL (PF) 100 MCG/2 ML VIAL IVP PRN (06:12)
[2017-04-26] MEDS: Chlorhexidine Rinse 15 ML MOUTHWASH MM SCH ×2 (08:55→19:49)
[2017-04-26] MEDS: Vancomycin Oral Soln 250 MG/5 ML UDC PO SCH ×4 (08:56→19:49)
--- NOTE | 2017-04-26 09:20 | Pulmonology Progress Note ---
<John Gregorio - Last Filed: 04/26/17 17:04> Date of Encounter: 04/26/17 Time of Encounter: 08:45 Assessment and Plan (1) Respiratory failure with hypoxia Current Visit: Yes Status: Acute Acute on chronic respiratory failure with hypoxia and hypercarbia Patient remains intubated at this time Chest x-ray does demonstrate pulmonary vascular edema This is likely secondary to decompensated CHF, as well as possibly an aspiration pneumonia He is saturating appropriately at this time Continuing Zosyn for possible aspiration pneumonia Discontinued vancomycin, Flagyl, fluconazole 04/25 Sputum culture pending Qualifiers: Chronicity: acute Qualified Code(s): J96.01 - Acute respiratory failure with hypoxia (2) Ofogz-da-ndekokf kidney injury Current Visit: Yes Status: Acute Acute on chronic kidney disease 3-4 baseline creat prior to Jan 2017 1.4-2.0, GFR 23-50. Nephrology following. Patient at his baseline, diuresis with Lasix 40mg yesterday, UOP good yesterday 04/25 1.4L, still 11L positive Considering diuresis today, monitoring. Qualifiers: Acute renal failure type: unspecified Chronic kidney disease stage: stage 3 (moderate) Qualified Code(s): N17.9 - Acute kidney failure, unspecified; N18.3 - Chronic kidney disease, stage 3 (moderate); N18.3 - Chronic kidney disease, stage 3 (moderate) (3) C. difficile diarrhea Current Visit: Yes Status: Acute Continuing vanc po (4) Protein calorie malnutrition Current Visit: Yes Status: Acute Possible PEG tube if patient consents when asked by GI Qualifiers: Protein-calorie malnutrition severity: unspecified severity Qualified Code( s): E46 - Unspecified protein-calorie malnutrition (5) Diabetes Current Visit: Yes Status: Chronic tube feeds, accucheck q4 on low-dose ssi Qualifiers: Diabetes mellitus type: type 2 Diabetes mellitus complication status: with hyperglycemia Diabetes mellitus terminal superintendent insulin use: with terminal superintendent use Qualified Code(s): E11.65 - Type 2 diabetes mellitus with hyperglycemia; Z79.4 - assisted (current) use of insulin; Z79.4 - assisted (current) use of insulin ; Z79.4 - intermediate card tender (current) use of insulin; Z79.4 - assisted (current) use of insulin (6) Anemia Current Visit: No Status: Acute 7.7 today; no melena, hemoptysis, monitoring likely anemia of chronic disease Qualifiers: Anemia type: due to chronic kidney disease Chronic kidney disease stage: stage 5, not on chronic dialysis Qualified Code(s): N18.5 - Chronic kidney disease, stage 5; D63.1 - Anemia in chronic kidney disease; D63.1 - Anemia in chronic kidney disease (7) DVT prophylaxis Current Visit: No Status: Acute SQ Heparin Subjective Principal diagnosis: Sepsis, Asp PNA Interval history: Interval history: Mr. Miranda, 61M, recently seen in the ICU (04/14) with severe sepsis, 2/2 UTI and pneumonia. PMH CVA, CKD baseline low 4.0s, permanent indwelling olivares catheter, cirrhosis and altered mental status at baseline. HOWARD is son, Davy. He was treated in the ICU for a metabolic acidosis with respiratory acidosis, hypoxic respiratory failure, septic shock and severe KARI. The patient was extubated successfully on 04/16-4 L on nasal cannula. Transitioned to telemetry floor on 04/18 saturating low 90s on NC 4L. Pt demonstrated bipap/high flow NC dependence in subsequent days, and began to have respiratory distress the evening/early childhood education specialist on 04/23. At that time a rapid response was called and he required intubation to stabilize respiratory status. Repeat chest x-ray at that time does demonstrate the patient has significant pulmonary vascular edema suggestive of decompensated CHF. He was transferred back to the ICU. Today patient is intubated and mildly sedated [place] 3, responds to verbal stimuli. Palliative, GI, and Nephro continue to follow patient as well. There is a plan for PEG tube insertion. Objective PUL Vital signs: Last Vital Signs Temp 98.7 F 04/26/17 07:25 Pulse 65 04/26/17 08:00 Resp 16 04/26/17 08:00 BP 129/72 04/26/17 08:00 Pulse Ox 98 04/26/17 08:00 General appearance: other (intubated, rouses to verbal/tactile stimulus) Eyes: nonicteric ENT: oropharynx moist Neck: supple Auscultation: bilateral: diminished breath sounds Cardiovascular: regular rate and rhythm (HR high 90s) Gastrointestinal: soft, non-tender Integumentary: normal Extremities: no cyanosis Musculoskeletal: no deformities non-focal exam Ventilator Settings Ventilator Settings: Ventilator Settings, Last 8 Hours Ventilator Mode VC+ Ventilator Mode VC+ Ventilator Mode VC+ Ventilator Mode VC+ Ventilator Mode VC+ Ventilator Mode VC+ Ventilator Mode VC+ Ventilator Mode VC+ Ventilator Mode VC+ Ventilator Mode VC+ Ventilator Mode VC+ Ventilator Tidal Volume 450 Setting Ventilator Tidal Volume 450 Setting Ventilator Tidal Volume 450 Setting Ventilator Tidal Volume 450 Setting Ventilator Tidal Volume 450 Setting Ventilator Tidal Volume 450 Setting Ventilator Tidal Volume 450 Setting Ventilator Tidal Volume 450 Setting Ventilator Tidal Volume 450 Setting Ventilator Tidal Volume 450 Setting Ventilator Tidal Volume 450 Setting Ventilator Respiratory Rate 16 Setting Ventilator Respiratory Rate 16 Setting Ventilator Respiratory Rate 16 Setting Ventilator Respiratory Rate 16 Setting Ventilator Respiratory Rate 16 Setting Ventilator Respiratory Rate 16 Setting Ventilator Respiratory Rate 16 Setting Ventilator Respiratory Rate 16 Setting Ventilator Respiratory Rate 16 Setting Ventilator Respiratory Rate 16 Setting Ventilator Respiratory Rate 16 Setting Actual Respiratory Rate 16 Actual Respiratory Rate 17 Actual Respiratory Rate 16 Actual Respiratory Rate 16 Actual Respiratory Rate 16 Actual Respiratory Rate 16 Actual Respiratory Rate 16 Actual Respiratory Rate 16 Actual Respiratory Rate 16 Actual Respiratory Rate 17 Positive End Expiratory 8 Pressure Positive End Expiratory 8 Pressure Positive End Expiratory 8 Pressure Positive End Expiratory 8 Pressure Positive End Expiratory 8 Pressure Positive End Expiratory 8 Pressure Positive End Expiratory 8 Pressure Positive End Expiratory 8 Pressure Positive End Expiratory 8 Pressure Positive End Expiratory 8 Pressure Positive End Expiratory 8 Pressure Peak Inspiratory Airway 26 Pressure Peak Inspiratory Airway 26 Pressure Peak Inspiratory Airway 27 Pressure Peak Inspiratory Airway 25 Pressure Peak Inspiratory Airway 27 Pressure Peak Inspiratory Airway 28 Pressure Peak Inspiratory Airway 27 Pressure Peak Inspiratory Airway 27 Pressure Peak Inspiratory Airway 27 Pressure Peak Inspiratory Airway 28 Pressure Results - Laboratory Findings CBC and BMP: 04/26/17 04:00 04/26/17 04:00 ABG ABG pH 7.40 pH Units (7.32-7.45) 04/26/17 03:41 ABG pCO2 35 mmHg (35-45) 04/26/17 03:41 ABG pO2 80 mmHg (85-104) L 04/26/17 03:41 ABG O2 Saturation 96 % (95-98) 04/26/17 03:41 PT/INR, D-dimer PT 10.5 Seconds (9.4-12.1) 04/14/17 10:25 Abnormal lab findings: Abnormal lab results RBC 2.74 M/mcL (4.19-5.50) L 04/26/17 04:00 Hgb 7.7 g/dL (12.9-16.9) L 04/26/17 04:00 Hct 24.3 % (37.5-50.1) L 04/26/17 04:00 RDW 15.6 % (11.5-14.5) H 04/26/17 04:00 Plt Count 98 K/mcL (140-400) L 04/26/17 04:00 Nucleated RBCs/100 WBC 0.6 /100 WBC (0) H 04/20/17 04:33 Platelet Estimate Slight Decrease (Normal) L 04/16/17 04:40 Immature Plt Fraction 6.7 % (1.1-6.1) H 04/26/17 04:00 Hypochromasia Present (Not Present) A 04/16/17 04:40 APTT 83.0 Seconds (26.0-36.0) H 04/14/17 10:25 ABG pO2 80 mmHg (85-104) L 04/26/17 03:41 ABG Base Excess -3 mEq/L (-2 to 3) L 04/26/17 03:41 Chloride 111 mEq/L (98-107) H 04/26/17 04:00 Carbon Dioxide 22 mEq/L (23-29) L 04/26/17 04:00 BUN 60 mg/dL (8-23) H 04/26/17 04:00 Creatinine 4.14 mg/dL (0.70-1.30) H 04/26/17 04:00 Est GFR ( Amer) 18 (> 60) L 04/26/17 04:00 Est GFR (Non-Af Amer) 15 (> 60) L 04/26/17 04:00 Glucose 211 mg/dL (70-105) H 04/26/17 04:00 POC Glucose 161 (58-89) H 04/25/17 23:24 Calculated Osmolality 321 (280-300) H 04/26/17 04:00 Calcium 8.2 mg/dL (8.6-10.3) L 04/26/17 04:00 AST 4 Units/L (13-39) L 04/26/17 04:00 ALT 3 Units/L (7-52) L 04/26/17 04:00 Serum Total Protein 4.0 g/dL (6.4-8.9) L 04/26/17 04:00 Albumin 1.7 g/dL (3.5-5.7) L 04/26/17 04:00 Globulin 2.3 g/dL (2.4-3.5) L 04/26/17 04:00 Albumin/Globulin Ratio 0.7 (1.1-2.2) L 04/26/17 04:00 Urine Clarity Turbid (Clear) A 04/22/17 07:30 Urine Protein 100 mg/dL (Neg-Trace) H 04/22/17 07:30 Urine Blood Large (Negative) H 04/22/17 07:30 Ur Leukocyte Esterase Large (Negative) H 04/22/17 07:30 Urine Microscopic RBC TNTC per hpf (0-3) H 04/22/17 07:30 Urine Microscopic WBC TNTC per hpf (0-3) H 04/22/17 07:30 Ur Squamous Epith Cells Many per lpf (None-Few) H 04/22/17 07:30 - Microbiology Findings Microbiology Findings: Microbiology, Last 48 Hours 04/25/17 09:53 Sputum Culture - Preliminary Sputum 04/23/17 01:15 Urine Culture - Final Urine,[place] tropicalis - Clinical Findings Intake & Output: Intake & Output 04/25/17 04/26/17 04/26/17 23:59 07:59 15:59 Intake Total 100 / 100 100 / 100 Output Total 500 / 500 450 / 450 Balance -400 / -400 -350 / -350 Weight 64.3 kg - VTE Documentation of Mechanical Device: Intermittent pneumatic compression device Consult Discharge Plan - Plan Referrals: Cecil Carter MD [Primary Care Provider] - <Derrick Pedro - Last Filed: 04/26/17 22:40> Date of Encounter: 04/26/17 Objective PUL Vital signs: Last Vital Signs Temp 99.5 F 04/26/17 21:18 Pulse 67 04/26/17 22:00 Resp 16 04/26/17 22:00 BP 147/69 04/26/17 22:00 Pulse Ox 95 04/26/17 22:00 Ventilator Settings Ventilator Settings: Ventilator Settings, Last 8 Hours Ventilator Mode VC+ Ventilator Mode VC+ Ventilator Mode VC+ Ventilator Mode VC+ Ventilator Mode VC+ Ventilator Mode VC+ Ventilator Mode VC+ Ventilator Mode VC+ Ventilator Mode VC+ Ventilator Mode VC+ Ventilator Mode VC+ Ventilator Tidal Volume 450 Setting Ventilator Tidal Volume 450 Setting Ventilator Tidal Volume 450 Setting Ventilator Tidal Volume 450 Setting Ventilator Tidal Volume 450 Setting Ventilator Tidal Volume 450 Setting Ventilator Tidal Volume 450 Setting Ventilator Tidal Volume 450 Setting Ventilator Tidal Volume 450 Setting Ventilator Tidal Volume 450 Setting Ventilator Tidal Volume 450 Setting Ventilator Respiratory Rate 16 Setting Ventilator Respiratory Rate 16 Setting Ventilator Respiratory Rate 16 Setting Ventilator Respiratory Rate 16 Setting Ventilator Respiratory Rate 16 Setting Ventilator Respiratory Rate 16 Setting Ventilator Respiratory Rate 16 Setting Ventilator Respiratory Rate 16 Setting Ventilator Respiratory Rate 16 Setting Ventilator Respiratory Rate 16 Setting Ventilator Respiratory Rate 16 Setting Actual Respiratory Rate 16 Actual Respiratory Rate 16 Actual Respiratory Rate 16 Actual Respiratory Rate 16 Actual Respiratory Rate 18 Actual Respiratory Rate 16 Actual Respiratory Rate 16 Actual Respiratory Rate 16 Actual Respiratory Rate 16 Actual Respiratory Rate 16 Actual Respiratory Rate 16 Positive End Expiratory 5 Pressure Positive End Expiratory 5 Pressure Positive End Expiratory 5 Pressure Positive End Expiratory 5 Pressure Positive End Expiratory 8 Pressure Positive End Expiratory 8 Pressure Positive End Expiratory 8 Pressure Positive End Expiratory 8 Pressure Positive End Expiratory 8 Pressure Positive End Expiratory 8 Pressure Positive End Expiratory 8 Pressure Peak Inspiratory Airway 24 Pressure Peak Inspiratory Airway 23 Pressure Peak Inspiratory Airway 28 Pressure Peak Inspiratory Airway 28 Pressure Peak Inspiratory Airway 28 Pressure Peak Inspiratory Airway 27 Pressure Peak Inspiratory Airway 31 Pressure Peak Inspiratory Airway 31 Pressure Peak Inspiratory Airway 31 Pressure Peak Inspiratory Airway 31 Pressure Peak Inspiratory Airway 27 Pressure Results - Laboratory Findings CBC and BMP: 04/26/17 04:00 04/26/17 04:00 ABG ABG pH 7.40 pH Units (7.32-7.45) 04/26/17 03:41 ABG pCO2 35 mmHg (35-45) 04/26/17 03:41 ABG pO2 80 mmHg (85-104) L 04/26/17 03:41 ABG O2 Saturation 96 % (95-98) 04/26/17 03:41 PT/INR, D-dimer PT 10.5 Seconds (9.4-12.1) 04/14/17 10:25 Abnormal lab findings: Abnormal lab results RBC 2.74 M/mcL (4.19-5.50) L 04/26/17 04:00 Hgb 7.7 g/dL (12.9-16.9) L 04/26/17 04:00 Hct 24.3 % (37.5-50.1) L 04/26/17 04:00 RDW 15.6 % (11.5-14.5) H 04/26/17 04:00 Plt Count 98 K/mcL (140-400) L 04/26/17 04:00 Nucleated RBCs/100 WBC 0.6 /100 WBC (0) H 04/20/17 04:33 Platelet Estimate Slight Decrease (Normal) L 04/16/17 04:40 Immature Plt Fraction 6.7 % (1.1-6.1) H 04/26/17 04:00 Hypochromasia Present (Not Present) A 04/16/17 04:40 APTT 83.0 Seconds (26.0-36.0) H 04/14/17 10:25 ABG pO2 80 mmHg (85-104) L 04/26/17 03:41 ABG Base Excess -3 mEq/L (-2 to 3) L 04/26/17 03:41 Chloride 111 mEq/L (98-107) H 04/26/17 04:00 Carbon Dioxide 22 mEq/L (23-29) L 04/26/17 04:00 BUN 60 mg/dL (8-23) H 04/26/17 04:00 Creatinine 4.14 mg/dL (0.70-1.30) H 04/26/17 04:00 Est GFR ( Amer) 18 (> 60) L 04/26/17 04:00 Est GFR (Non-Af Amer) 15 (> 60) L 04/26/17 04:00 Glucose 211 mg/dL (70-105) H 04/26/17 04:00 POC Glucose 161 (58-89) H 04/25/17 23:24 Calculated Osmolality 321 (280-300) H 04/26/17 04:00 Calcium 8.2 mg/dL (8.6-10.3) L 04/26/17 04:00 AST 4 Units/L (13-39) L 04/26/17 04:00 ALT 3 Units/L (7-52) L 04/26/17 04:00 Serum Total Protein 4.0 g/dL (6.4-8.9) L 04/26/17 04:00 Albumin 1.7 g/dL (3.5-5.7) L 04/26/17 04:00 Globulin 2.3 g/dL (2.4-3.5) L 04/26/17 04:00 Albumin/Globulin Ratio 0.7 (1.1-2.2) L 04/26/17 04:00 Urine Clarity Turbid (Clear) A 04/22/17 07:30 Urine Protein 100 mg/dL (Neg-Trace) H 04/22/17 07:30 Urine Blood Large (Negative) H 04/22/17 07:30 Ur Leukocyte Esterase Large (Negative) H 04/22/17 07:30 Urine Microscopic RBC TNTC per hpf (0-3) H 04/22/17 07:30 Urine Microscopic WBC TNTC per hpf (0-3) H 04/22/17 07:30 Ur Squamous Epith Cells Many per lpf (None-Few) H 04/22/17 07:30 - Microbiology Findings Microbiology Findings: Microbiology, Last 48 Hours 04/25/17 09:53 Sputum Culture - Preliminary Sputum 04/23/17 01:15 Urine Culture - Final Urine,[place]liv[place] tropicalis - Clinical Findings Intake & Output: Intake & Output 04/26/17 04/26/17 04/26/17 07:59 15:59 23:59 Intake Total 100 / 100 229 / 229 Output Total 450 / 450 300 / 300 600 / 600 Balance -350 / -350 -300 / -300 -371 / -371 - Attending Attestation - Attending Attestation I saw and evaluated this patient and my medical decision-making was reviewed with the Resident Physician. I agree with the documented findings, disposition and treatment plan as described except to the extent set forth below. We independently had [id number] contact with the patient I spent 32 minutes of Critical Care time with this patient. It involved decision making of high complexity to assess, manipulate, and support vital organ system failure and/or to prevent further life threatening deterioration of the patient's condition. The time involved in the performance of separately reportable procedures was not counted toward critical care time. Patient seen and examined at bedside Labs, radiology, chart personally reviewed. Management was reviewed during multidisciplinary critical care rounds. SALES MANAGEMENT INTERN:Patient is alert follows commands he is on prn sedatives and analgesics spoke with him regarding PEG tube he says no . Pulm:Patient is hypoxic on ventilator adjusted tidal volume and RR for lung protective strategy and adjusted PEEP to optimize oxygenation the main reason for V/Q mismatch is pulmonary edema and possible aspiration pneumonia 04/26 : Sputum growing MRSA and Proteus looks like health care associated pneumonia. Cards:Patient is hemodynamically stable diuresis as tolerated as patient has decompensated heart failure FEN-GI:As per dietary recs . Patient initially consented for PEG tube according to but when i asked the patient was OK for PEG tube Renal:KARI , Renal following OK for diuresis will continue as tolerated ID:To cover for C diff diarrhea , sputum growing MRSA and Proteus patient is on appropriate coverage Heme/Onc:reviewed , DVT prophylaxis Endo: Glucose Monitored Integ/MSK: Skin Care per routine ICU Nursing Protocol to prevent ulcers. Lines: All lines examined without evidence of infection : Dispo: Critically hypoxic respiratory failure needs ventilatory support CODE: Full Code
--- NOTE | 2017-04-26 09:44 | Nephrology Progress Note ---
Date of Encounter: 04/26/17 Time of Encounter: 09:25 - Assessment and Plan (1) Modum-ol-bcphsbi kidney injury Current Visit: Yes Status: Acute Renal fct stable/plateued. Creat 4.14. Renal US, no obstructive uropathy. Documented urine output 1400cc. Palliative care consult appreciated. States will have PEG placed for nutrition. GI consult regarding PEG placement appreciated. Will continue to monitor, avoid nephrotoxins, I&O's. Qualifiers: Qualified Code(s): N17.9 - Acute kidney failure, unspecified; N18.3 - Chronic kidney disease, stage 3 (moderate); N18.3 - Chronic kidney disease, stage 3 (moderate) (2) KARI (acute kidney injury) Current Visit: No Status: Acute (3) Recurrent UTI (urinary tract infection) Current Visit: No Status: Acute Subjective Principal diagnosis: Sepsis Interval history: Intubated, not arousable. Objective - Vital Signs Vital signs: Vital Signs Temp Pulse Resp BP Pulse Ox 04/26/17 08:00 65 16 129/72 98 04/26/17 07:38 16 113/64 97 04/26/17 07:25 98.7 F 04/26/17 07:00 65 16 113/63 97 04/26/17 06:00 66 17 118/54 95 04/26/17 05:11 17 124/62 96 04/26/17 05:00 64 17 124/62 94 04/26/17 04:56 97.2 F L 04/26/17 04:00 97.7 F 64 16 117/60 96 04/26/17 03:31 16 117/60 96 04/26/17 03:00 60 16 104/55 97 04/26/17 02:00 60 17 120/59 93 04/26/17 01:06 16 138/64 98 04/26/17 01:00 59 16 138/64 95 04/26/17 00:00 57 16 117/58 97 04/25/17 23:53 97.7 F 04/25/17 23:12 16 129/80 53 04/25/17 23:00 58 16 129/80 99 04/25/17 22:00 54 20 97/54 99 04/25/17 21:38 20 125/68 95 04/25/17 21:00 53 16 111/53 97 04/25/17 20:00 58 16 96/54 96 04/25/17 19:55 16 128/66 99 04/25/17 19:00 97.3 F L 56 16 125/74 100 04/25/17 18:00 56 17 133/69 100 04/25/17 17:48 16 123/67 100 04/25/17 17:00 56 16 120/65 100 04/25/17 16:00 53 16 109/60 100 04/25/17 15:46 97.6 F 04/25/17 15:25 16 95/55 100 04/25/17 15:00 53 17 86/55 100 04/25/17 14:00 53 16 101/56 100 04/25/17 13:18 17 89/55 100 04/25/17 13:00 57 18 89/55 100 04/25/17 12:00 55 16 78/50 100 04/25/17 11:56 16 71/48 100 04/25/17 11:51 97.5 F L 04/25/17 11:00 60 16 71/48 100 04/25/17 10:01 21 107/62 97 04/25/17 10:00 57 21 107/62 97 Intake and Output 04/25/17 04/26/17 04/26/17 23:59 07:59 15:59 Intake Total 100 / 100 100 / 100 Output Total 500 / 500 450 / 450 Balance -400 / -400 -350 / -350 Intake: IV Fluids 100 / 100 100 / 100 Zosyn 3.375 GM In 0.9 % Sodium 100 / 100 100 / 100 Chloride (Mini-Bag +) 100 ML @ 25 mls/hr IVPB Q12H [facility] Rx#: [id number] Oral 0 / 0 0 / 0 Output: Rectal Tube 0 / 0 Catheter 500 / 500 450 / 450 Other: Weight 64.3 kg Blood Glucose* 161 155 - General Appearance General appearance: Present: chronically ill, frail EENT: Present: mucous membranes moist Neck: Present: no JVD Respiratory: Present: clear Cardiology: Present: no edema, regular rate, regular rhythm Gastrointestinal: Present: normoactive bowel sounds, no tenderness Integumentary: Present: warm and dry - Lab 04/26/17 04:00 04/26/17 04:00 Most recent lab results ABG pH 7.40 pH Units (7.32-7.45) 04/26/17 03:41 ABG pCO2 35 mmHg (35-45) 04/26/17 03:41 ABG pO2 80 mmHg (85-104) L 04/26/17 03:41 ABG HCO3 22 mEq/L (21-27) 04/26/17 03:41 ABG O2 Saturation 96 % (95-98) 04/26/17 03:41 Calcium 8.2 mg/dL (8.6-10.3) L 04/26/17 04:00 Magnesium 1.6 mg/dL (1.6-2.6) 04/26/17 04:00 Urine Creatinine 28 mg/dL 04/25/17 16:00 Urine Sodium 99.1 mEq/L 04/25/17 16:00 - VTE Documentation of Mechanical Device: Intermittent pneumatic compression device Consult Discharge Plan - Plan Referrals: Cecil Carter MD [Primary Care Provider] -
[2017-04-27] MEDS: Piperacillin/Tazobactam 3.375 GM in 0.9 % Sodium Chloride Mini Bag 100 ML IVPB SCH ×2 (01:24→13:17)
[2017-04-27 04:29] LABS: ABG Base Excess -2 mEq/L (-2 to 3); ABG HCO3 22 mEq/L (21-27); ABG Oxygen Saturation 96 % (95-98); ABG PCO2 36 mmHg (35-45); ABG PO2 79 mmHg (85-104); ABG TCO2 23 mEq/L (20-26); Blood Gas Modality PRVC; Blood Gas PEEP 5 cm H2O; Blood Gas Respiration Rate 16; Blood Gas VT 450 cc
[2017-04-27] MEDS: Insulin LISPRO 300 UNITS/3 ML VIAL SQ SCH ×6 (04:35→23:49)
[2017-04-27 04:37] LABS: Calcium 8.1 mg/dL (8.6-10.3); Potassium 3.3 mEq/L (3.5-5.1)
[2017-04-27 04:38] LABS: Basophils % 0.7 %; Eosinophils # 0.2 K/mcL (0.0-0.6); Hematocrit 23.4 % (37.5-50.1); Hemoglobin 7.5 g/dL (12.9-16.9); Immature Granulocytes % 0.3 % (0-4); Lymphocytes # 0.8 K/mcL (0.6-4.6); Mean Corpuscular HGB Conc 32.1 g/dL (31.6-35.5); Mean Corpuscular Hemoglobin 28.6 pg (28.0-33.3); Mean Corpuscular Volume 89.3 fL (83.0-100.0); Mean Platelet Volume 11.8 fL (9.4-12.4); Monocytes # 0.2 K/mcL (0.0-1.3); Monocytes % 3.7 %; Neutrophils # 4.6 K/mcL (1.6-8.9); Red Blood Count 2.62 M/mcL (4.19-5.50); Red Cell Distribution Width 15.8 % (11.5-14.5); Segmented Neutrophils % 77.3 %
[2017-04-27 04:44] LABS: Platelet Count 159 K/mcL (140-400)
[2017-04-27] MEDS: *HR* Heparin 5,000 UNIT/ML VIAL SQ SCH ×2 (05:56→18:23)
[2017-04-27] MEDS ORDERED: Potassium Chloride Elixir 20 MEQ/15 ML UDC GTUBE ONE (07:22)
[2017-04-27] MEDS ORDERED: Potassium Chloride 40 MEQ, Lidocaine 1% 2 ML in D5% in Water 500 ML IVPB ONE (07:22)
[2017-04-27] MEDS ORDERED: *HR* Labetalol 20 MG/4 ML SYRINGE IVP ONE (07:49)
[2017-04-27] MEDS ORDERED: Furosemide 40 MG/4 ML VIAL IVP ONE ×2 (07:53→17:38)
[2017-04-27] MEDS: Vancomycin Oral Soln 250 MG/5 ML UDC PO SCH ×4 (07:53→21:11)
[2017-04-27] MEDS: Chlorhexidine Rinse 15 ML MOUTHWASH MM SCH ×2 (07:53→21:11)
--- NOTE | 2017-04-27 08:41 | Nephrology Progress Note ---
Date of Encounter: 04/27/17 Time of Encounter: 08:15 - Assessment and Plan (1) Upuky-ja-pdmzgkv kidney injury Current Visit: Yes Status: Acute Renal fct stable/plateued. Creat 4.14. Renal US, no obstructive uropathy. Consideration being given for starting on chronic HD. Documented urine output 1250cc. Palliative care consult appreciated. GI consult regarding PEG placement appreciated. Will continue to monitor, avoid nephrotoxins, I&O's. Qualifiers: Acute renal failure type: unspecified Chronic kidney disease stage: stage 3 (moderate) Qualified Code(s): N17.9 - Acute kidney failure, unspecified; N18.3 - Chronic kidney disease, stage 3 (moderate); N18.3 - Chronic kidney disease, stage 3 (moderate) (2) KARI (acute kidney injury) Current Visit: No Status: Acute (3) Recurrent UTI (urinary tract infection) Current Visit: No Status: Acute Subjective Principal diagnosis: Sepsis, Asp PNA Interval history: Intubated, arousable. Shakes head no when asked if wants feeding tube. Objective - Vital Signs Vital signs: Vital Signs Temp Pulse Resp BP Pulse Ox 04/27/17 07:47 22 98 04/27/17 07:35 99.0 F 04/27/17 06:00 81 21 134/67 97 04/27/17 05:18 64 16 152/70 98 04/27/17 05:10 16 152/70 97 04/27/17 05:06 99.8 F H 04/27/17 04:00 70 16 150/72 97 04/27/17 03:02 19 137/66 92 04/27/17 03:00 80 18 137/66 91 04/27/17 02:00 99.8 F H 65 18 126/62 96 04/27/17 01:06 18 126/62 96 04/27/17 01:00 67 18 126/62 97 04/27/17 00:22 99.8 F H 04/27/17 00:00 99.8 F H 76 16 105/54 96 04/26/17 23:16 16 151/68 94 04/26/17 23:00 65 16 151/68 94 04/26/17 22:00 67 16 147/69 95 04/26/17 21:18 99.5 F 04/26/17 21:03 16 130/62 98 04/26/17 20:00 64 16 146/65 98 04/26/17 19:32 16 139/92 97 04/26/17 19:00 71 18 125/70 98 04/26/17 18:00 66 16 130/69 98 04/26/17 17:00 64 16 146/77 98 04/26/17 16:17 16 97 04/26/17 16:00 99.5 F 64 16 146/77 98 04/26/17 15:00 64 16 150/72 98 04/26/17 14:47 17 97 04/26/17 14:00 64 16 149/70 97 04/26/17 13:00 66 16 148/74 97 04/26/17 12:00 98.1 F 64 16 141/74 97 04/26/17 11:38 16 140/66 97 04/26/17 11:00 98.1 F 64 17 140/67 97 04/26/17 10:00 66 17 141/71 97 04/26/17 09:55 16 141/71 97 04/26/17 09:00 64 16 139/68 96 Intake and Output 04/26/17 04/27/17 04/27/17 23:59 07:59 15:59 Intake Total 229 / 229 349 / 349 Output Total 600 / 600 1300 / 1300 Balance -371 / -371 -951 / -951 Intake: IV Fluids 100 / 100 100 / 100 Zosyn 3.375 GM In 0.9 % Sodium 100 / 100 100 / 100 Chloride (Mini-Bag +) 100 ML @ 25 mls/hr IVPB Q12H [facility] Rx#: [id number] Tube Feeding 129 / 129 249 / 249 Output: Rectal Tube 100 / 100 600 / 600 Catheter 500 / 500 700 / 700 Other: Weight 61.7 kg Blood Glucose* 97 156 Patient Weight 04/27/17 23:59 Weight 61.7 kg - General Appearance General appearance: Present: chronically ill, frail EENT: Present: mucous membranes moist Neck: Present: no JVD Respiratory: Present: clear Cardiology: Present: edema, regular rate, regular rhythm Additional Comments: mild buttock and forearms Gastrointestinal: Present: hypoactive bowel sounds, no tenderness Integumentary: Present: warm and dry Psychiatric: Present: mood/affect appropriate, cooperative - Lab 04/27/17 04:02 03/09/18 03:30 Most recent lab results ABG pH 7.40 pH Units (7.32-7.45) 04/27/17 04:23 ABG pCO2 36 mmHg (35-45) 04/27/17 04:23 ABG pO2 79 mmHg (85-104) L 04/27/17 04:23 ABG HCO3 22 mEq/L (21-27) 04/27/17 04:23 ABG O2 Saturation 96 % (95-98) 04/27/17 04:23 Calcium 8.1 mg/dL (8.6-10.3) L 04/27/17 03:30 Magnesium 1.6 mg/dL (1.6-2.6) 04/26/17 04:00 Urine Creatinine 28 mg/dL 04/25/17 16:00 Urine Sodium 99.1 mEq/L 04/25/17 16:00 - VTE Documentation of Mechanical Device: Intermittent pneumatic compression device Consult Discharge Plan - Plan Referrals: Cecil Carter MD [Primary Care Provider] -
--- NOTE | 2017-04-27 13:01 | Pulmonology Progress Note ---
<Randall Son - Last Filed: 04/27/17 13:02> Date of Encounter: 04/27/17 Time of Encounter: 08:30 Assessment and Plan (1) Respiratory failure with hypoxia Current Visit: Yes Status: Acute Acute on chronic respiratory failure with hypoxia and hypercarbia Patient remains intubated at this time, however may undergo extubation today The patient used CPAP for a significant amount of time this morning, and pressure support was decreased to 5 from 10 Chest x-ray does demonstrate pulmonary vascular edema This is likely secondary to decompensated CHF, as well as possibly an aspiration pneumonia He is saturating appropriately at this time Continuing Zosyn Day 4 for possible aspiration pneumonia Repeat sputum culture no growth Qualifiers: Chronicity: acute Qualified Code(s): J96.01 - Acute respiratory failure with hypoxia (2) Wxhsa-rx-msjncrm kidney injury Current Visit: Yes Status: Acute Acute on chronic kidney disease 3-4 baseline creat prior to Jan 2017 1.4-2.0, GFR 23-50. Nephrology following. Patient at his baseline, diuresis with Lasix 40mg yesterday, UOP good 1.4L I/O [id number] [id number] Continued diuresis today Nephrology considering chcf hemodialysis Qualifiers: Acute renal failure type: unspecified Chronic kidney disease stage: stage 3 (moderate) Qualified Code(s): N17.9 - Acute kidney failure, unspecified; N18.3 - Chronic kidney disease, stage 3 (moderate); N18.3 - Chronic kidney disease, stage 3 (moderate) (3) C. difficile diarrhea Current Visit: Yes Status: Acute Patient is on PO Vancomycin Stool is more firm, decreased frequency (4) Anemia Current Visit: Yes Status: Acute 7.5 today; no melena, hemoptysis, monitoring likely anemia of chronic disease Qualifiers: Anemia type: due to chronic kidney disease Chronic kidney disease stage: stage 5, not on chronic dialysis Qualified Code(s): N18.5 - Chronic kidney disease, stage 5; D63.1 - Anemia in chronic kidney disease; D63.1 - Anemia in chronic kidney disease (5) Diabetes Current Visit: Yes Status: Chronic tube feeds, accucheck q4 on low-dose ssi Qualifiers: Diabetes mellitus type: type 2 Diabetes mellitus chcf insulin use: with terminal block assembler use Diabetes mellitus complication status: with hyperglycemia Qualified Code(s): E11.65 - Type 2 diabetes mellitus with hyperglycemia; Z79.4 - care home (current) use of insulin; Z79.4 - director long term care (current) use of insulin; Z79.4 - director long term care (current) use of insulin; Z79.4 - care home (current ) use of insulin (6) Protein calorie malnutrition Current Visit: Yes Status: Acute Possible PEG tube if patient consents when asked by GI Qualifiers: Protein-calorie malnutrition severity: unspecified severity Qualified Code( s): E46 - Unspecified protein-calorie malnutrition (7) DVT prophylaxis Current Visit: Yes Status: Acute sq heparin Subjective Principal diagnosis: Sepsis, Asp PNA Interval history: The patient is resting comfortably in bed. When spoken to, he does respond by nodding or shaking his head. When asked if he is ready to remove the tube, he is unsure. Sometimes he comments yes other times he says no. He CPAP well this morning so we will likely attempt extubation today Objective PUL Vital signs: Last Vital Signs Temp 99.0 F 04/27/17 11:47 Pulse 66 04/27/17 11:00 Resp 20 04/27/17 11:00 BP 144/66 04/27/17 11:00 Pulse Ox 98 04/27/17 11:00 General appearance: no acute distress, asleep, appears uncomfortable Eyes: nonicteric ENT: oropharynx moist Neck: supple Effort: normal Auscultation: bilateral: diminished breath sounds, rales (scattered fine rales) Cardiovascular: regular rate and rhythm Gastrointestinal: soft, non-tender, non-distended Integumentary: normal, decubitus ulcer (b/l LEs stage 1) Extremities: no cyanosis, no clubbing, edema (1+ b/l LE edema) Musculoskeletal: no deformities non-focal exam, unable to assess due to mental status Ventilator Settings Ventilator Settings: Ventilator Settings, Last 8 Hours Ventilator Mode CPAP Ventilator Mode CPAP Ventilator Mode CPAP Ventilator Mode CPAP Ventilator Mode CPAP Ventilator Mode CPAP Ventilator Mode CPAP Ventilator Mode CPAP Ventilator Mode VC+ Ventilator Mode VC+ Ventilator Mode VC+ Ventilator Tidal Volume 450 Setting Ventilator Tidal Volume 450 Setting Ventilator Tidal Volume 450 Setting Ventilator Tidal Volume 450 Setting Ventilator Tidal Volume 450 Setting Ventilator Tidal Volume 450 Setting Ventilator Tidal Volume 450 Setting Ventilator Tidal Volume 450 Setting Ventilator Tidal Volume 450 Setting Ventilator Respiratory Rate 16 Setting Ventilator Respiratory Rate 16 Setting Ventilator Respiratory Rate 16 Setting Actual Respiratory Rate 20 Actual Respiratory Rate 20 Actual Respiratory Rate 20 Actual Respiratory Rate 23 Actual Respiratory Rate 28 Actual Respiratory Rate 23 Actual Respiratory Rate 21 Actual Respiratory Rate 21 Actual Respiratory Rate 16 Actual Respiratory Rate 16 Actual Respiratory Rate 16 Positive End Expiratory 5 Pressure Positive End Expiratory 5 Pressure Positive End Expiratory 5 Pressure Positive End Expiratory 5 Pressure Positive End Expiratory 5 Pressure Positive End Expiratory 5 Pressure Positive End Expiratory 5 Pressure Positive End Expiratory 5 Pressure Positive End Expiratory 5 Pressure Positive End Expiratory 5 Pressure Positive End Expiratory 5 Pressure Peak Inspiratory Airway 11 Pressure Peak Inspiratory Airway 11 Pressure Peak Inspiratory Airway 11 Pressure Peak Inspiratory Airway 11 Pressure Peak Inspiratory Airway 11 Pressure Peak Inspiratory Airway 11 Pressure Peak Inspiratory Airway 11 Pressure Peak Inspiratory Airway 15 Pressure Peak Inspiratory Airway 20 Pressure Peak Inspiratory Airway 21 Pressure Peak Inspiratory Airway 38 Pressure Results - Laboratory Findings CBC and BMP: 04/27/17 04:02 04/27/17 03:30 ABG ABG pH 7.40 pH Units (7.32-7.45) 04/27/17 04:23 ABG pCO2 36 mmHg (35-45) 04/27/17 04:23 ABG pO2 79 mmHg (85-104) L 04/27/17 04:23 ABG O2 Saturation 96 % (95-98) 04/27/17 04:23 PT/INR, D-dimer PT 10.5 Seconds (9.4-12.1) 04/14/17 10:25 Abnormal lab findings: Abnormal lab results RBC 2.62 M/mcL (4.19-5.50) L 04/27/17 04:02 Hgb 7.5 g/dL (12.9-16.9) L 04/27/17 04:02 Hct 23.4 % (37.5-50.1) L 04/27/17 04:02 RDW 15.8 % (11.5-14.5) H 04/27/17 04:02 Nucleated RBCs/100 WBC 0.6 /100 WBC (0) H 04/20/17 04:33 Platelet Estimate Slight Decrease (Normal) L 04/16/17 04:40 Immature Plt Fraction 6.7 % (1.1-6.1) H 04/26/17 04:00 Hypochromasia Present (Not Present) A 04/16/17 04:40 APTT 83.0 Seconds (26.0-36.0) H 04/14/17 10:25 ABG pO2 79 mmHg (85-104) L 04/27/17 04:23 Potassium 3.3 mEq/L (3.5-5.1) L 04/27/17 03:30 Chloride 113 mEq/L (98-107) H 04/27/17 03:30 Carbon Dioxide 21 mEq/L (23-29) L 04/27/17 03:30 BUN 58 mg/dL (8-23) H 04/27/17 03:30 Creatinine 4.03 mg/dL (0.70-1.30) H 04/27/17 03:30 Est GFR ( Amer) 18 (> 60) L 04/27/17 03:30 Est GFR (Non-Af Amer) 15 (> 60) L 04/27/17 03:30 Glucose 206 mg/dL (70-105) H 04/27/17 03:30 POC Glucose 124 (58-89) H 04/26/17 23:30 Calculated Osmolality 320 (280-300) H 04/27/17 03:30 Calcium 8.1 mg/dL (8.6-10.3) L 04/27/17 03:30 AST 4 Units/L (13-39) L 04/26/17 04:00 ALT 3 Units/L (7-52) L 04/26/17 04:00 Serum Total Protein 4.0 g/dL (6.4-8.9) L 04/26/17 04:00 Albumin 1.7 g/dL (3.5-5.7) L 04/26/17 04:00 Globulin 2.3 g/dL (2.4-3.5) L 04/26/17 04:00 Albumin/Globulin Ratio 0.7 (1.1-2.2) L 04/26/17 04:00 Urine Clarity Turbid (Clear) A 04/22/17 07:30 Urine Protein 100 mg/dL (Neg-Trace) H 04/22/17 07:30 Urine Blood Large (Negative) H 04/22/17 07:30 Ur Leukocyte Esterase Large (Negative) H 04/22/17 07:30 Urine Microscopic RBC TNTC per hpf (0-3) H 04/22/17 07:30 Urine Microscopic WBC TNTC per hpf (0-3) H 04/22/17 07:30 Ur Squamous Epith Cells Many per lpf (None-Few) H 04/22/17 07:30 - Microbiology Findings Microbiology Findings: Microbiology, Last 48 Hours 04/25/17 09:53 Sputum Culture - Preliminary Sputum - Clinical Findings Intake & Output: Intake & Output 04/26/17 04/27/17 04/27/17 23:59 07:59 15:59 Intake Total 229 / 229 349 / 349 Output Total 600 / 600 1300 / 1300 450 / 450 Balance -371 / -371 -951 / -951 -450 / -450 Weight 61.7 kg - VTE Documentation of Mechanical Device: Intermittent pneumatic compression device Consult Discharge Plan - Plan Referrals: Cecil Carter MD [Primary Care Provider] - <Derrick Pedro - Last Filed: 04/27/17 22:45> Date of Encounter: 04/27/17 Objective PUL Vital signs: Last Vital Signs Temp 98.0 F 04/27/17 19:09 Pulse 61 04/27/17 22:00 Resp 14 04/27/17 22:00 BP 151/67 04/27/17 22:00 Pulse Ox 98 04/27/17 22:00 Ventilator Settings Ventilator Settings: Ventilator Settings, Last 8 Hours Ventilator Mode CPAP Actual Respiratory Rate 17 Positive End Expiratory 5 Pressure Peak Inspiratory Airway 11 Pressure Results - Laboratory Findings CBC and BMP: 04/27/17 04:02 04/27/17 03:30 ABG ABG pH 7.40 pH Units (7.32-7.45) 04/27/17 04:23 ABG pCO2 36 mmHg (35-45) 04/27/17 04:23 ABG pO2 79 mmHg (85-104) L 04/27/17 04:23 ABG O2 Saturation 96 % (95-98) 04/27/17 04:23 PT/INR, D-dimer PT 10.5 Seconds (9.4-12.1) 04/14/17 10:25 Abnormal lab findings: Abnormal lab results RBC 2.62 M/mcL (4.19-5.50) L 04/27/17 04:02 Hgb 7.5 g/dL (12.9-16.9) L 04/27/17 04:02 Hct 23.4 % (37.5-50.1) L 04/27/17 04:02 RDW 15.8 % (11.5-14.5) H 04/27/17 04:02 Nucleated RBCs/100 WBC 0.6 /100 WBC (0) H 04/20/17 04:33 Platelet Estimate Slight Decrease (Normal) L 04/16/17 04:40 Immature Plt Fraction 6.7 % (1.1-6.1) H 04/26/17 04:00 Hypochromasia Present (Not Present) A 04/16/17 04:40 APTT 83.0 Seconds (26.0-36.0) H 04/14/17 10:25 ABG pO2 79 mmHg (85-104) L 04/27/17 04:23 Potassium 3.3 mEq/L (3.5-5.1) L 04/27/17 03:30 Chloride 113 mEq/L (98-107) H 04/27/17 03:30 Carbon Dioxide 21 mEq/L (23-29) L 04/27/17 03:30 BUN 58 mg/dL (8-23) H 04/27/17 03:30 Creatinine 4.03 mg/dL (0.70-1.30) H 04/27/17 03:30 Est GFR ( Amer) 18 (> 60) L 04/27/17 03:30 Est GFR (Non-Af Amer) 15 (> 60) L 04/27/17 03:30 Glucose 206 mg/dL (70-105) H 04/27/17 03:30 POC Glucose 124 (58-89) H 04/26/17 23:30 Calculated Osmolality 320 (280-300) H 04/27/17 03:30 Calcium 8.1 mg/dL (8.6-10.3) L 04/27/17 03:30 AST 4 Units/L (13-39) L 04/26/17 04:00 ALT 3 Units/L (7-52) L 04/26/17 04:00 Serum Total Protein 4.0 g/dL (6.4-8.9) L 04/26/17 04:00 Albumin 1.7 g/dL (3.5-5.7) L 04/26/17 04:00 Globulin 2.3 g/dL (2.4-3.5) L 04/26/17 04:00 Albumin/Globulin Ratio 0.7 (1.1-2.2) L 04/26/17 04:00 Urine Clarity Turbid (Clear) A 04/22/17 07:30 Urine Protein 100 mg/dL (Neg-Trace) H 04/22/17 07:30 Urine Blood Large (Negative) H 04/22/17 07:30 Ur Leukocyte Esterase Large (Negative) H 04/22/17 07:30 Urine Microscopic RBC TNTC per hpf (0-3) H 04/22/17 07:30 Urine Microscopic WBC TNTC per hpf (0-3) H 04/22/17 07:30 Ur Squamous Epith Cells Many per lpf (None-Few) H 04/22/17 07:30 - Microbiology Findings Microbiology Findings: Microbiology, Last 48 Hours 04/25/17 09:53 Sputum Culture - Preliminary Sputum - Clinical Findings Intake & Output: Intake & Output 04/27/17 04/27/17 04/27/17 07:59 15:59 23:59 Intake Total 349 / 349 158 / 158 100 / 100 Output Total 1300 / 1300 450 / 450 1075 / 1075 Balance -951 / -951 -292 / -292 -975 / -975 Weight 61.7 kg - Attending Attestation - Attending Attestation I saw and evaluated this patient and my medical decision-making was reviewed with the Resident Physician. I agree with the documented findings, disposition and treatment plan as described except to the extent set forth below. We independently had [id number] contact with the patient I spent 32 minutes of Critical Care time with this patient. It involved decision making of high complexity to assess, manipulate, and support vital organ system failure and/or to prevent further life threatening deterioration of the patient's condition. The time involved in the performance of separately reportable procedures was not counted toward critical care time. Patient seen and examined at bedside Labs, radiology, chart personally reviewed. Management was reviewed during multidisciplinary critical care rounds. [employer]ER:Patient is alert follows commands he is on prn sedatives and analgesics spoke with him regarding PEG tube he says no . Pulm:Patient is hypoxic on ventilator adjusted tidal volume and RR for lung protective strategy and adjusted PEEP to optimize oxygenation the main reason for V/Q mismatch is pulmonary edema and possible aspiration pneumonia 04/26 : Sputum growing MRSA and Proteus looks like health care associated pneumonia. 04/27 Patient did well on spontaneous breathing trial dropped the pressure support to 5 and he passed the SBTover 4 hrs patient was extubated did well will put him on BIPAP tonight Cards:Patient is hemodynamically stable diuresis as tolerated as patient has decompensated heart failure FEN-GI:As per dietary recs . Patient initially consented for PEG tube according to but when i asked the patient was OK for PEG tube , then he changed his mind now he is extubated will discuss with him tomorrow . Renal:KARI , Renal following OK for diuresis will continue as tolerated . Might need chcf dialysis ID: sputum growing MRSA and Proteus patient is on appropriate coverage. On appropriate antibiotics Heme/Onc:reviewed , DVT prophylaxis Endo: Glucose Monitored Integ/MSK: Skin Care per routine ICU Nursing Protocol to prevent ulcers. Lines: All lines examined without evidence of infection : Dispo: Critically ill high chance of hypoxic respiratory failure needs ventilatory support CODE: Full Code
[2017-04-27] MEDS: Erythromycin OPTH Oint LEFT EYE SCH ×2 (19:29→21:11)
[2017-04-28] MEDS: Piperacillin/Tazobactam 3.375 GM in 0.9 % Sodium Chloride Mini Bag 100 ML IVPB SCH ×2 (01:26→14:32)
[2017-04-28 03:49] LABS: VBG HCO3 27 mEq/L (21-27); VBG PCO2 47 mmHg (41-51); VBG PH 7.37 pH Units (7.32-7.42); VBG PO2 96 mmHg (25-50)
[2017-04-28 03:53] LABS: Basophils # 0.1 K/mcL (0.0-0.2); Basophils % 1.1 %; Eosinophils # 0.3 K/mcL (0.0-0.6); Eosinophils % 6.8 %; Hematocrit 22.5 % (37.5-50.1); Hemoglobin 7.1 g/dL (12.9-16.9); Immature Granulocytes % 0.2 % (0-4); Lymphocytes # 0.9 K/mcL (0.6-4.6); Lymphocytes % 21.1 %; Mean Corpuscular HGB Conc 31.6 g/dL (31.6-35.5); Mean Corpuscular Hemoglobin 28.4 pg (28.0-33.3); Mean Platelet Volume 11.3 fL (9.4-12.4); Monocytes # 0.3 K/mcL (0.0-1.3); Monocytes % 6.6 %; Neutrophils # 2.8 K/mcL (1.6-8.9); Platelet Count 165 K/mcL (140-400); Red Cell Distribution Width 15.4 % (11.5-14.5); Segmented Neutrophils % 64.2 %
[2017-04-28 04:08] LABS: Calcium 8.2 mg/dL (8.6-10.3); Magnesium 2.1 mg/dL (1.6-2.6); Potassium 3.7 mEq/L (3.5-5.1)
[2017-04-28] MEDS: Insulin LISPRO 300 UNITS/3 ML VIAL SQ SCH ×5 (04:13→20:26)
[2017-04-28] MEDS: *HR* Heparin 5,000 UNIT/ML VIAL SQ SCH ×2 (06:03→16:45)
--- NOTE | 2017-04-28 08:08 | Nephrology Progress Note ---
Date of Encounter: 04/28/17 Time of Encounter: 08:07 - Assessment and Plan (1) KARI (acute kidney injury) Current Visit: No Status: Acute The patient's renal function is stable. He continues on antibiotics for possible aspiration. We will continue to monitor his renal status. (2) UTI (urinary tract infection) Current Visit: No Status: Chronic Qualifiers: Urinary tract infection type: acute cystitis Hematuria presence: without hematuria Qualified Code(s): N30.00 - Acute cystitis without hematuria Subjective Principal diagnosis: Sepsis, Asp PNA Interval history: The patient has been extubated. He is maintaining oxygen saturation 100% on nasal cannula. He denies any complaints. From a renal perspective he remains stable. Objective - Vital Signs Vital signs: Vital Signs Temp Pulse Resp BP Pulse Ox 04/28/17 06:00 56 13 156/80 100 04/28/17 05:00 56 16 156/68 100 04/28/17 04:00 53 16 164/69 100 04/28/17 03:54 18 150/69 100 04/28/17 03:23 97.8 F 04/28/17 03:00 57 24 133/76 100 04/28/17 02:00 55 15 140/77 100 04/28/17 01:14 13 128/63 98 04/28/17 01:00 59 20 128/63 98 04/28/17 00:00 58 18 124/61 100 04/27/17 23:06 97.6 F 04/27/17 23:00 58 14 118/62 98 04/27/17 22:45 14 97 04/27/17 22:00 61 14 151/67 98 04/27/17 21:00 65 16 157/71 99 04/27/17 20:00 60 16 150/65 98 04/27/17 19:09 98.0 F 04/27/17 19:00 64 14 149/62 97 04/27/17 18:00 64 16 158/69 96 04/27/17 17:00 64 20 149/63 93 04/27/17 16:00 99.0 F 68 16 154/73 93 04/27/17 15:25 17 99 04/27/17 15:00 63 15 127/61 99 04/27/17 14:00 66 21 133/62 95 04/27/17 13:20 64 18 154/68 99 04/27/17 13:18 18 99 04/27/17 13:00 65 17 155/71 98 04/27/17 12:00 64 18 154/68 99 04/27/17 11:47 99.0 F 04/27/17 11:00 66 20 144/66 98 04/27/17 10:00 69 20 148/67 98 04/27/17 09:56 22 98 04/27/17 09:00 75 23 140/69 97 Intake and Output 04/27/17 04/28/17 04/28/17 23:59 07:59 15:59 Intake Total 100 / 100 150 / 150 Output Total 1675 / 1675 425 / 425 Balance -1575 / -1575 -275 / -275 Intake: IV Fluids 100 / 100 100 / 100 Zosyn 3.375 GM In 0.9 % Sodium 100 / 100 100 / 100 Chloride (Mini-Bag +) 100 ML @ 25 mls/hr IVPB Q12H COUNT [facility]CLUDES [facility] Rx#: [id number] Oral 50 / 50 Output: Rectal Tube 100 / 100 0 / 0 Catheter 1575 / 1575 425 / 425 Other: Meal Dinner Percent of Meal Consumed 0% Stool Consistency liquid Stool Color Brown Weight 60.9 kg Blood Glucose* 180 Patient Weight 04/28/17 23:59 Weight 60.9 kg - General Appearance Exam: Patient appears alert. He is in no acute distress. Lungs symmetric breath sounds. Heart regular rate and rhythm. Abdomen is benign. He still has some lower extremity swelling. Spears catheter is in place. - Lab 04/28/17 03:25 04/28/17 03:25 Most recent lab results ABG pH 7.40 pH Units (7.32-7.45) 04/27/17 04:23 ABG pCO2 36 mmHg (35-45) 04/27/17 04:23 ABG pO2 79 mmHg (85-104) L 04/27/17 04:23 ABG HCO3 22 mEq/L (21-27) 04/27/17 04:23 ABG O2 Saturation 96 % (95-98) 04/27/17 04:23 Calcium 8.2 mg/dL (8.6-10.3) L 04/28/17 03:25 Magnesium 2.1 mg/dL (1.6-2.6) 04/28/17 03:25 Urine Creatinine 28 mg/dL 04/25/17 16:00 Urine Sodium 99.1 mEq/L 04/25/17 16:00 - VTE Documentation of Mechanical Device: Intermittent pneumatic compression device Consult Discharge Plan - Plan Referrals: Cecil Carter MD [Primary Care Provider] -
[2017-04-28] MEDS: Chlorhexidine Rinse 15 ML MOUTHWASH MM SCH ×2 (08:17→20:26)
[2017-04-28] MEDS: Erythromycin OPTH Oint LEFT EYE SCH ×3 (08:17→20:32)
[2017-04-28] MEDS: Pantoprazole 40 MG VIAL IVP SCH (08:17)
[2017-04-28] MEDS: Vancomycin Oral Soln 250 MG/5 ML UDC PO SCH ×4 (08:18→20:31)
[2017-04-28] MEDS ORDERED: Furosemide 40 MG/4 ML VIAL IVP ONE (08:31)
--- NOTE | 2017-04-28 08:52 | Pulmonology Progress Note ---
<Randall Son - Last Filed: 04/28/17 09:10> Date of Encounter: 04/28/17 Time of Encounter: 07:45 Assessment and Plan (1) Respiratory failure with hypoxia Current Visit: Yes Status: Acute Acute on chronic respiratory failure with hypoxia and hypercarbia Patient was extubated successfully yesterday, BiPAP overnight Chest x-ray does demonstrate pulmonary vascular edema This is likely secondary to decompensated CHF, as well as possibly an aspiration pneumonia He is saturating appropriately at this time Continuing Zosyn Day 5 for possible aspiration pneumonia Repeat sputum culture no growth Qualifiers: Chronicity: acute Qualified Code(s): J96.01 - Acute respiratory failure with hypoxia (2) Flcep-ph-rvtkwkc kidney injury Current Visit: Yes Status: Acute Acute on chronic kidney disease 3-4 baseline creat prior to Jan 2017 1.4-2.0, GFR 23-50. Nephrology following. Patient at his baseline, diuresis with Lasix 40mg yesterday, UOP good 1.4L I/O [id number] Continued diuresis today Nephrology considering parts counterman hemodialysis Qualifiers: Acute renal failure type: unspecified Chronic kidney disease stage: stage 3 (moderate) Qualified Code(s): N17.9 - Acute kidney failure, unspecified; N18.3 - Chronic kidney disease, stage 3 (moderate); N18.3 - Chronic kidney disease, stage 3 (moderate) (3) C. difficile diarrhea Current Visit: Yes Status: Acute Patient is on PO Vancomycin Day 9 of 14 Stool is more firm, decreased frequency (4) Anemia Current Visit: Yes Status: Acute 7.1 today; no melena, hemoptysis, monitoring likely anemia of chronic disease We will check occult blood Iron studies May consider transfusion in the morning Qualifiers: Anemia type: due to chronic kidney disease Chronic kidney disease stage: stage 5, not on chronic dialysis Qualified Code(s): N18.5 - Chronic kidney disease, stage 5; D63.1 - Anemia in chronic kidney disease; D63.1 - Anemia in chronic kidney disease (5) Diabetes Current Visit: Yes Status: Chronic tube feeds, accucheck q4 on low-dose ssi Qualifiers: Diabetes mellitus type: type 2 Diabetes mellitus mcc insulin use: with parts counterman use Diabetes mellitus complication status: with hyperglycemia Qualified Code(s): E11.65 - Type 2 diabetes mellitus with hyperglycemia; Z79.4 - 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 Pedro and Dr. Son When we told him that he used to refuse, he says "I changed my mind, I want to live" Qualifiers: Protein-calorie malnutrition severity: unspecified severity Qualified Code( s): E46 - Unspecified protein-calorie malnutrition (7) DVT prophylaxis Current Visit: Yes Status: Acute sq heparin Subjective Principal diagnosis: Sepsis, Asp PNA Interval history: The patient is resting comfortably in bed. He was extubated successfully and claims to be breathing well. He says that he is hungry, but has no other acute complaints. He will likely step down in the morning. Objective PUL Vital signs: Last Vital Signs Temp 97.7 F 04/28/17 08:10 Pulse 56 04/28/17 06:00 Resp 13 04/28/17 06:00 BP 156/80 04/28/17 06:00 Pulse Ox 100 04/28/17 06:00 General appearance: no acute distress, alert Eyes: nonicteric ENT: oropharynx moist Mallampati (class): 2 Neck: supple Effort: normal Auscultation: bilateral: diminished breath sounds, rales (bibasilar rales) Cardiovascular: regular rate and rhythm Gastrointestinal: soft, non-tender, non-distended Integumentary: normal Extremities: no cyanosis, edema (1+ edema in b/l LEs) Musculoskeletal: no deformities normal mental status, non-focal exam, pupils equal and round mood appropriate, other (flat affect ) Results - Laboratory Findings CBC and BMP: 04/28/17 03:25 04/28/17 03:25 ABG ABG pH 7.40 pH Units (7.32-7.45) 04/27/17 04:23 ABG pCO2 36 mmHg (35-45) 04/27/17 04:23 ABG pO2 79 mmHg (85-104) L 04/27/17 04:23 ABG O2 Saturation 96 % (95-98) 04/27/17 04:23 PT/INR, D-dimer PT 10.5 Seconds (9.4-12.1) 04/14/17 10:25 Abnormal lab findings: Abnormal lab results RBC 2.50 M/mcL (4.19-5.50) L 04/28/17 03:25 Hgb 7.1 g/dL (12.9-16.9) L 04/28/17 03:25 Hct 22.5 % (37.5-50.1) L 04/28/17 03:25 RDW 15.4 % (11.5-14.5) H 04/28/17 03:25 Nucleated RBCs/100 WBC 0.6 /100 WBC (0) H 04/20/17 04:33 Platelet Estimate Slight Decrease (Normal) L 04/16/17 04:40 Immature Plt Fraction 6.7 % (1.1-6.1) H 04/26/17 04:00 Hypochromasia Present (Not Present) A 04/16/17 04:40 APTT 83.0 Seconds (26.0-36.0) H 04/14/17 10:25 ABG pO2 79 mmHg (85-104) L 04/27/17 04:23 VBG pO2 96 mmHg (25-50) H 04/28/17 03:46 Sodium 146 mEq/L (136-145) H 04/28/17 03:25 Chloride 114 mEq/L (98-107) H 04/28/17 03:25 BUN 58 mg/dL (8-23) H 04/28/17 03:25 Creatinine 4.07 mg/dL (0.70-1.30) H 04/28/17 03:25 Est GFR ( Amer) 18 (> 60) L 04/28/17 03:25 Est GFR (Non-Af Amer) 15 (> 60) L 04/28/17 03:25 POC Glucose 180 (58-89) H 04/27/17 23:07 Calculated Osmolality 318 (280-300) H 04/28/17 03:25 Calcium 8.2 mg/dL (8.6-10.3) L 04/28/17 03:25 AST 4 Units/L (13-39) L 04/26/17 04:00 ALT 3 Units/L (7-52) L 04/26/17 04:00 Serum Total Protein 4.0 g/dL (6.4-8.9) L 04/26/17 04:00 Albumin 1.7 g/dL (3.5-5.7) L 04/26/17 04:00 Globulin 2.3 g/dL (2.4-3.5) L 04/26/17 04:00 Albumin/Globulin Ratio 0.7 (1.1-2.2) L 04/26/17 04:00 Urine Clarity Turbid (Clear) A 04/22/17 07:30 Urine Protein 100 mg/dL (Neg-Trace) H 04/22/17 07:30 Urine Blood Large (Negative) H 04/22/17 07:30 Ur Leukocyte Esterase Large (Negative) H 04/22/17 07:30 Urine Microscopic RBC TNTC per hpf (0-3) H 04/22/17 07:30 Urine Microscopic WBC TNTC per hpf (0-3) H 04/22/17 07:30 Ur Squamous Epith Cells Many per lpf (None-Few) H 04/22/17 07:30 - Microbiology Findings Microbiology Findings: Microbiology, Last 48 Hours 04/25/17 09:53 Sputum Culture - Preliminary Sputum - Clinical Findings Intake & Output: Intake & Output 04/27/17 04/28/17 04/28/17 23:59 07:59 15:59 Intake Total 100 / 100 150 / 150 Output Total 1675 / 1675 425 / 425 300 / 300 Balance -1575 / -1575 -275 / -275 -300 / -300 Weight 60.9 kg - VTE Documentation of Mechanical Device: Intermittent pneumatic compression device Consult Discharge Plan - Plan Referrals: Cecil Carter MD [Primary Care Provider] - <Derrick Pedro - Last Filed: 04/28/17 22:10> Date of Encounter: 04/28/17 Objective PUL Vital signs: Last Vital Signs Temp 97.0 F L 04/28/17 18:48 Pulse 60 04/28/17 21:00 Resp 15 04/28/17 21:00 BP 123/57 04/28/17 21:00 Pulse Ox 91 04/28/17 21:00 Results - Laboratory Findings CBC and BMP: 04/28/17 03:25 04/28/17 03:25 ABG ABG pH 7.40 pH Units (7.32-7.45) 04/27/17 04:23 ABG pCO2 36 mmHg (35-45) 04/27/17 04:23 ABG pO2 79 mmHg (85-104) L 04/27/17 04:23 ABG O2 Saturation 96 % (95-98) 04/27/17 04:23 PT/INR, D-dimer PT 10.5 Seconds (9.4-12.1) 04/14/17 10:25 Abnormal lab findings: Abnormal lab results RBC 2.50 M/mcL (4.19-5.50) L 04/28/17 03:25 Hgb 7.1 g/dL (12.9-16.9) L 04/28/17 03:25 Hct 22.5 % (37.5-50.1) L 04/28/17 03:25 RDW 15.4 % (11.5-14.5) H 04/28/17 03:25 Nucleated RBCs/100 WBC 0.6 /100 WBC (0) H 04/20/17 04:33 Platelet Estimate Slight Decrease (Normal) L 04/16/17 04:40 Immature Plt Fraction 6.7 % (1.1-6.1) H 04/26/17 04:00 Hypochromasia Present (Not Present) A 04/16/17 04:40 APTT 83.0 Seconds (26.0-36.0) H 04/14/17 10:25 ABG pO2 79 mmHg (85-104) L 04/27/17 04:23 VBG pO2 96 mmHg (25-50) H 04/28/17 03:46 Sodium 146 mEq/L (136-145) H 04/28/17 03:25 Chloride 114 mEq/L (98-107) H 04/28/17 03:25 BUN 58 mg/dL (8-23) H 04/28/17 03:25 Creatinine 4.07 mg/dL (0.70-1.30) H 04/28/17 03:25 Est GFR ( Amer) 18 (> 60) L 04/28/17 03:25 Est GFR (Non-Af Amer) 15 (> 60) L 04/28/17 03:25 POC Glucose 180 (58-89) H 04/27/17 23:07 Calculated Osmolality 318 (280-300) H 04/28/17 03:25 Calcium 8.2 mg/dL (8.6-10.3) L 04/28/17 03:25 AST 4 Units/L (13-39) L 04/26/17 04:00 ALT 3 Units/L (7-52) L 04/26/17 04:00 Serum Total Protein 4.0 g/dL (6.4-8.9) L 04/26/17 04:00 Albumin 1.7 g/dL (3.5-5.7) L 04/26/17 04:00 Globulin 2.3 g/dL (2.4-3.5) L 04/26/17 04:00 Albumin/Globulin Ratio 0.7 (1.1-2.2) L 04/26/17 04:00 Urine Clarity Turbid (Clear) A 04/22/17 07:30 Urine Protein 100 mg/dL (Neg-Trace) H 04/22/17 07:30 Urine Blood Large (Negative) H 04/22/17 07:30 Ur Leukocyte Esterase Large (Negative) H 04/22/17 07:30 Urine Microscopic RBC TNTC per hpf (0-3) H 04/22/17 07:30 Urine Microscopic WBC TNTC per hpf (0-3) H 04/22/17 07:30 Ur Squamous Epith Cells Many per lpf (None-Few) H 04/22/17 07:30 - Microbiology Findings Microbiology Findings: Microbiology, Last 48 Hours 04/25/17 09:53 Sputum Culture - Final Sputum - Clinical Findings Intake & Output: Intake & Output 04/28/17 04/28/17 04/28/17 07:59 15:59 23:59 Intake Total 270 / 270 220 / 220 Output Total 425 / 425 600 / 600 875 / 875 Balance -155 / -155 -600 / -600 -655 / -655 Weight 60.9 kg - Attending Attestation - Attending Attestation I saw and evaluated this patient and my medical decision-making was reviewed with the Resident Physician. I agree with the documented findings, disposition and treatment plan as described except to the extent set forth below. We independently had [id number] contact with the patient Patient seen and examined at bedside Labs, radiology, chart personally reviewed. Management was reviewed during multidisciplinary critical care rounds. SUPERVISING EDITOR TRAILER:Patient is alert follows commands he is on prn sedatives and analgesics spoke with him regarding PEG tube today told he has changed my mind he wants PEG tube to be done . Pulm:Patient is hypoxic on ventilator adjusted tidal volume and RR for lung protective strategy and adjusted PEEP to optimize oxygenation the main reason for V/Q mismatch is pulmonary edema and possible aspiration pneumonia 04/26 : Sputum growing MRSA and Proteus looks like health care associated pneumonia. 04/27 Patient did well on spontaneous breathing trial dropped the pressure support to 5 and he passed the SBTover 4 hrs patient was extubated did well will put him on BIPAP tonight 04/28 Patient has acceptable Oxygenation and ventilation on NC . Will benefit from BIPAP tonight . Cards:Patient is hemodynamically stable diuresis as tolerated as patient has decompensated heart failure FEN-GI:As per dietary recs . Patient initially consented for PEG tube according to but when i asked the patient was OK for PEG tube, had a discussion today said that he changed his mind he wants to get PEG tube . Renal:KARI , Renal following OK for diuresis will continue as tolerated . Might need parts counterman dialysis ID: sputum growing MRSA and Proteus patient is on appropriate coverage. On appropriate antibiotics Heme/Onc:reviewed , DVT prophylaxis Endo: Glucose Monitored Integ/MSK: Skin Care per routine ICU Nursing Protocol to prevent ulcers. Lines: All lines examined without evidence of infection : Dispo: Critically ill high chance of hypoxic respiratory failure needs ventilatory support CODE: Full Code
[2017-04-29] MEDS: Insulin LISPRO 300 UNITS/3 ML VIAL SQ SCH ×7 (00:58→23:53)
[2017-04-29] MEDS: Piperacillin/Tazobactam 3.375 GM in 0.9 % Sodium Chloride Mini Bag 100 ML IVPB SCH ×2 (03:28→16:10)
[2017-04-29 04:11] LABS: Eosinophils # 0.3 K/mcL (0.0-0.6); Eosinophils % 10.7 %; Hematocrit 24.4 % (37.5-50.1); Hemoglobin 7.6 g/dL (12.9-16.9); Immature Granulocytes % 0.7 % (0-4); Lymphocytes # 0.8 K/mcL (0.6-4.6); Lymphocytes % 28.4 %; Mean Corpuscular HGB Conc 31.1 g/dL (31.6-35.5); Mean Corpuscular Hemoglobin 28.7 pg (28.0-33.3); Mean Corpuscular Volume 92.1 fL (83.0-100.0); Monocytes # 0.2 K/mcL (0.0-1.3); Monocytes % 8.3 %; Neutrophils # 1.5 K/mcL (1.6-8.9); Nucleated Red Blood Cells 0.7 /100 WBC (0); Platelet Count 155 K/mcL (140-400); Red Blood Count 2.65 M/mcL (4.19-5.50); Red Cell Distribution Width 15.5 % (11.5-14.5); Segmented Neutrophils % 50.9 %
[2017-04-29 05:59] LABS: BUN/Creatinine Ratio 16 (6-26); Blood Urea Nitrogen 58 mg/dL (8-23); Calcium 8.1 mg/dL (8.6-10.3); Carbon Dioxide 23 mEq/L (23-29); Chloride 113 mEq/L (98-107); Glucose 101 mg/dL (70-105); Iron 55 mcg/dL (65-175); Osmolality,Calculated 320 (280-300); Potassium 3.3 mEq/L (3.5-5.1); Sodium 147 mEq/L (136-145); eGFR For African Americans 20 (> 60); eGFR For Non-African Americans 17 (> 60)
[2017-04-29 06:02] LABS: Transferrin < 75 mg/dL (203-362)
[2017-04-29] MEDS: *HR* Heparin 5,000 UNIT/ML VIAL SQ SCH ×2 (06:03→20:31)
[2017-04-29] MEDS ORDERED: Potassium Chloride Elixir 20 MEQ/15 ML UDC PO ONE ×2 (07:07→12:08)
[2017-04-29] MEDS ORDERED: Potassium Chloride 40 MEQ, Lidocaine 1% 2 ML in D5% in Water 500 ML IVPB ONE (07:07)
--- NOTE | 2017-04-29 07:47 | Nephrology Progress Note ---
Date of Encounter: 04/29/17 Time of Encounter: 07:45 - Assessment and Plan (1) KARI (acute kidney injury) Current Visit: No Status: Acute The patient's renal function is stable. His sodium is starting to increase. He may be slightly intravascularly volume depleted. I would suggest starting him on some hypotonic fluids such is half-normal saline at 50 mL per hour. I would not give him any additional diuretics today. (2) UTI (urinary tract infection) Current Visit: No Status: Chronic Qualifiers: Urinary tract infection type: acute cystitis Hematuria presence: without hematuria Qualified Code(s): N30.00 - Acute cystitis without hematuria Subjective Principal diagnosis: Sepsis, Asp PNA Interval history: The patient denies any complaints. He is resting comfortably in bed. Serum creatinine is stable. Sodium level is starting to increase a bit. Urine output was 2.2 L yesterday intake 490 mL according to the chart. Objective - Vital Signs Vital signs: Vital Signs Temp Pulse Resp BP Pulse Ox 04/29/17 06:00 56 15 112/54 100 04/29/17 05:00 58 17 103/54 99 04/29/17 04:30 57 16 97/47 99 04/29/17 03:49 97.6 F 04/29/17 03:15 59 15 169/78 100 04/29/17 01:00 65 16 160/72 99 04/29/17 00:30 60 14 117/73 100 04/28/17 23:00 61 16 151/72 100 04/28/17 22:56 96.9 F L 04/28/17 22:00 61 16 130/56 100 04/28/17 21:00 60 15 123/57 91 04/28/17 20:30 64 17 133/70 97 04/28/17 19:00 63 16 145/90 98 04/28/17 18:48 97.0 F L 04/28/17 18:00 61 16 134/64 100 04/28/17 17:00 71 16 146/68 100 04/28/17 16:00 97.7 F 61 16 160/76 100 04/28/17 14:53 56 16 152/70 100 04/28/17 14:00 64 16 150/72 100 04/28/17 13:00 70 16 155/69 100 04/28/17 12:22 97.7 F 04/28/17 12:00 65 16 110/95 100 04/28/17 11:00 65 16 146/64 100 04/28/17 10:00 59 16 155/75 100 04/28/17 09:00 69 16 159/68 100 04/28/17 08:10 97.7 F 04/28/17 08:00 69 16 170/74 100 Intake and Output 04/28/17 04/28/17 04/29/17 15:59 23:59 08:59 Intake Total 220 / 220 Output Total 600 / 600 1175 / 1175 125 / 125 Balance -600 / -600 -955 / -955 -125 / -125 Intake: IV Fluids 100 / 100 Zosyn 3.375 GM In 0.9 % Sodium 100 / 100 Chloride (Mini-Bag +) 100 ML @ 25 mls/hr IVPB Q12H [facility] Rx#: [id number] Oral 120 / 120 Output: Rectal Tube 50 / 50 100 / 100 Catheter 600 / 600 1125 / 1125 25 / 25 Other: Stool Characteristics Seedy Stool Color Brown Green Weight 60.2 kg Blood Glucose* 176 176 97 Patient Weight 04/30/17 00:59 Weight 60.2 kg - General Appearance Exam: Patient appears alert. He is in no acute distress. Lungs symmetric breath sounds otherwise clear. Heart regular rate and rhythm. Abdomen is benign. There is much less lower extremity and upper extremity edema. - Lab 04/29/17 04:00 04/29/17 03:02 Most recent lab results ABG pH 7.40 pH Units (7.32-7.45) 04/27/17 04:23 ABG pCO2 36 mmHg (35-45) 04/27/17 04:23 ABG pO2 79 mmHg (85-104) L 04/27/17 04:23 ABG HCO3 22 mEq/L (21-27) 04/27/17 04:23 ABG O2 Saturation 96 % (95-98) 04/27/17 04:23 Calcium 8.1 mg/dL (8.6-10.3) L 04/29/17 03:02 Magnesium 2.1 mg/dL (1.6-2.6) 04/28/17 03:25 Urine Creatinine 28 mg/dL 04/25/17 16:00 Urine Sodium 99.1 mEq/L 04/25/17 16:00 - VTE Documentation of Mechanical Device: Intermittent pneumatic compression device Consult Discharge Plan - Plan Referrals: Cecil Carter MD [Primary Care Provider] -
--- NOTE | 2017-04-29 08:25 | Pulmonology Progress Note ---
<Randall Son - Last Filed: 04/29/17 10:23> Date of Encounter: 04/29/17 Time of Encounter: 08:23 Assessment and Plan (1) Respiratory failure with hypoxia Current Visit: Yes Status: Acute Acute on chronic respiratory failure with hypoxia and hypercarbia Patient was extubated successfully, BiPAP overnight Chest x-ray does demonstrate pulmonary vascular edema This is likely secondary to decompensated CHF, as well as possibly an aspiration pneumonia He is saturating appropriately at this time Continuing Zosyn Day 6 for possible aspiration pneumonia, 10-12 day duration Repeat sputum culture no growth The patient can likely step down today Qualifiers: Chronicity: acute Qualified Code(s): J96.01 - Acute respiratory failure with hypoxia (2) Rktzl-[id number] kidney injury Current Visit: Yes Status: Acute Acute on chronic kidney disease 3-4 baseline creat prior to Jan 2017 1.4-2.0, GFR 23-50. Nephrology following. Patient at his baseline, diuresis with Lasix 40mg yesterday I/O [id number], [id number] Patient is beginning to appear volume depleted, edema has resolved We will d/c diuresis, and begin hypotonic maintenance fluids per nephrology recommendation Nephrology considering [facility] hemodialysis Qualifiers: Acute renal failure type: unspecified Chronic kidney disease stage: stage 3 (moderate) Qualified Code(s): N17.9 - Acute kidney failure, unspecified; N18.3 - Chronic kidney disease, stage 3 (moderate); N18.3 - Chronic kidney disease, stage 3 (moderate) (3) C. difficile diarrhea Current Visit: Yes Status: Acute Patient is on PO Vancomycin Day of 14 Stool is more firm, decreased frequency (4) Anemia Current Visit: Yes Status: Acute 7.6 today; no melena, hemoptysis, monitoring likely anemia of chronic disease with a component of iron deficiency We will check occult blood Iron studies show: Fe 55, %Saturation <75 We will start oral iron repletion, continue to follow Qualifiers: Anemia type: due to chronic kidney disease Chronic kidney disease stage: stage 5, not on chronic dialysis Qualified Code(s): N18.5 - Chronic kidney disease, stage 5; D63.1 - Anemia in chronic kidney disease; D63.1 - Anemia in chronic kidney disease (5) Diabetes Current Visit: Yes Status: Chronic tube feeds, accucheck q4 on low-dose ssi Qualifiers: Diabetes mellitus type: type 2 Diabetes mellitus termite inspector insulin use: with termite inspector use Diabetes mellitus complication status: with hyperglycemia Qualified Code(s): E11.65 - Type 2 diabetes mellitus with hyperglycemia; Z79.4 - FDC (current) use of insulin; Z79.4 - FDC (current) use of insulin; Z79.4 - FDC (current) use of insulin; Z79.4 - FDC (current ) use of insulin (6) Protein calorie malnutrition Current Visit: Yes Status: Acute Patient consents to PEG tube to Dr. Pedro and Dr. Son When we told him that he used to refuse, he says "I changed my mind, I want to live" Qualifiers: Protein-calorie malnutrition severity: unspecified severity Qualified Code( s): E46 - Unspecified protein-calorie malnutrition (7) DVT prophylaxis Current Visit: Yes Status: Acute sq heparin Subjective Principal diagnosis: Sepsis, Asp PNA Interval history: The patient is resting comfortably in bed. He was extubated successfully and claims to be breathing well. He says that he is hungry, but has no other acute complaints. He did not have any complications overnight, and appears to have a more euvolemic status this morning. We will initiate transfer to stepdown unit. Objective PUL Vital signs: Last Vital Signs Temp 97.6 F 04/29/17 03:49 Pulse 56 04/29/17 06:00 Resp 15 04/29/17 06:00 BP 112/54 04/29/17 06:00 Pulse Ox 100 04/29/17 06:00 General appearance: no acute distress, asleep Eyes: nonicteric ENT: oropharynx moist Mallampati (class): 2 Neck: supple Effort: normal Auscultation: bilateral: clear Cardiovascular: regular rate and rhythm Gastrointestinal: soft, non-tender, non-distended Integumentary: normal Extremities: no cyanosis, no edema, no clubbing Musculoskeletal: no deformities normal mental status, non-focal exam mood appropriate, other (affect flat) Results - Laboratory Findings CBC and BMP: 04/29/17 04:00 04/29/17 03:02 ABG ABG pH 7.40 pH Units (7.32-7.45) 04/27/17 04:23 ABG pCO2 36 mmHg (35-45) 04/27/17 04:23 ABG pO2 79 mmHg (85-104) L 04/27/17 04:23 ABG O2 Saturation 96 % (95-98) 04/27/17 04:23 PT/INR, D-dimer PT 10.5 Seconds (9.4-12.1) 04/14/17 10:25 Abnormal lab findings: Abnormal lab results WBC 2.9 K/mcL (4.3-11.1) L 04/29/17 04:00 RBC 2.65 M/mcL (4.19-5.50) L 04/29/17 04:00 Hgb 7.6 g/dL (12.9-16.9) L 04/29/17 04:00 Hct 24.4 % (37.5-50.1) L 04/29/17 04:00 MCHC 31.1 g/dL (31.6-35.5) L 04/29/17 04:00 RDW 15.5 % (11.5-14.5) H 04/29/17 04:00 Neutrophils # 1.5 K/mcL (1.6-8.9) L 04/29/17 04:00 Nucleated RBCs/100 WBC 0.7 /100 WBC (0) H 04/29/17 04:00 Platelet Estimate Slight Decrease (Normal) L 04/16/17 04:40 Immature Plt Fraction 6.7 % (1.1-6.1) H 04/26/17 04:00 Hypochromasia Present (Not Present) A 04/16/17 04:40 APTT 83.0 Seconds (26.0-36.0) H 04/14/17 10:25 ABG pO2 79 mmHg (85-104) L 04/27/17 04:23 VBG pO2 96 mmHg (25-50) H 04/28/17 03:46 Sodium 147 mEq/L (136-145) H 04/29/17 03:02 Potassium 3.3 mEq/L (3.5-5.1) L 04/29/17 03:02 Chloride 113 mEq/L (98-107) H 04/29/17 03:02 BUN 58 mg/dL (8-23) H 04/29/17 03:02 Creatinine 3.69 mg/dL (0.70-1.30) H 04/29/17 03:02 Est GFR ( Amer) 20 (> 60) L 04/29/17 03:02 Est GFR (Non-Af Amer) 17 (> 60) L 04/29/17 03:02 POC Glucose 176 (58-89) H 04/28/17 22:50 Calculated Osmolality 320 (280-300) H 04/29/17 03:02 Calcium 8.1 mg/dL (8.6-10.3) L 04/29/17 03:02 Iron 55 mcg/dL (65-175) L 04/29/17 03:02 Transferrin < 75 mg/dL (203-362) L 04/29/17 03:02 AST 4 Units/L (13-39) L 04/26/17 04:00 ALT 3 Units/L (7-52) L 04/26/17 04:00 Serum Total Protein 4.0 g/dL (6.4-8.9) L 04/26/17 04:00 Albumin 1.7 g/dL (3.5-5.7) L 04/26/17 04:00 Globulin 2.3 g/dL (2.4-3.5) L 04/26/17 04:00 Albumin/Globulin Ratio 0.7 (1.1-2.2) L 04/26/17 04:00 Urine Clarity Turbid (Clear) A 04/22/17 07:30 Urine Protein 100 mg/dL (Neg-Trace) H 04/22/17 07:30 Urine Blood Large (Negative) H 04/22/17 07:30 Ur Leukocyte Esterase Large (Negative) H 04/22/17 07:30 Urine Microscopic RBC TNTC per hpf (0-3) H 04/22/17 07:30 Urine Microscopic WBC TNTC per hpf (0-3) H 04/22/17 07:30 Ur Squamous Epith Cells Many per lpf (None-Few) H 04/22/17 07:30 - Microbiology Findings Microbiology Findings: Microbiology, Last 48 Hours 04/25/17 09:53 Sputum Culture - Final Sputum - Clinical Findings Intake & Output: Intake & Output 04/28/17 04/29/17 04/29/17 22:59 07:59 15:59 Intake Total Output Total 100 / 100 Balance -100 / -100 Weight - VTE Documentation of Mechanical Device: Intermittent pneumatic compression device Consult Discharge Plan - Plan Referrals: Cecil Carter MD [Primary Care Provider] - <WilliamDerrick quiroz - Last Filed: 04/29/17 21:24> Date of Encounter: 04/29/17 Objective PUL Vital signs: Last Vital Signs Temp 97.3 F L 04/29/17 20:26 Pulse 79 04/29/17 18:15 Resp 21 04/29/17 18:15 BP 105/58 04/29/17 18:15 Pulse Ox 97 04/29/17 18:15 Results - Laboratory Findings CBC and BMP: 04/29/17 14:45 04/29/17 14:45 ABG ABG pH 7.27 pH Units (7.32-7.45) L 04/29/17 14:09 ABG pCO2 35 mmHg (35-45) 04/29/17 14:09 ABG pO2 107 mmHg (85-104) H 04/29/17 14:09 ABG O2 Saturation 97 % (95-98) 04/29/17 14:09 PT/INR, D-dimer PT 10.5 Seconds (9.4-12.1) 04/14/17 10:25 Abnormal lab findings: Abnormal lab results WBC 3.3 K/mcL (4.3-11.1) L 04/29/17 14:45 RBC 2.84 M/mcL (4.19-5.50) L 04/29/17 14:45 Hgb 7.9 g/dL (12.9-16.9) L 04/29/17 14:45 Hct 27.2 % (37.5-50.1) L 04/29/17 14:45 MCH 27.8 pg (28.0-33.3) L 04/29/17 14:45 MCHC 29.0 g/dL (31.6-35.5) L 04/29/17 14:45 RDW 15.8 % (11.5-14.5) H 04/29/17 14:45 Nucleated RBCs/100 WBC 0.7 /100 WBC (0) H 04/29/17 04:00 Platelet Estimate Slight Decrease (Normal) L 04/16/17 04:40 Immature Plt Fraction 6.7 % (1.1-6.1) H 04/26/17 04:00 Hypochromasia Present (Not Present) A 04/16/17 04:40 APTT 83.0 Seconds (26.0-36.0) H 04/14/17 10:25 ABG pH 7.27 pH Units (7.32-7.45) L 04/29/17 14:09 ABG pO2 107 mmHg (85-104) H 04/29/17 14:09 ABG HCO3 16 mEq/L (21-27) L 04/29/17 14:09 ABG Total CO2 17 mEq/L (20-26) L 04/29/17 14:09 ABG Base Excess -10 mEq/L (-2 to 3) L 04/29/17 14:09 VBG pO2 96 mmHg (25-50) H 04/28/17 03:46 Chloride 108 mEq/L (98-107) H 04/29/17 14:45 Carbon Dioxide 15 mEq/L (23-29) L 04/29/17 14:45 BUN 57 mg/dL (8-23) H 04/29/17 14:45 Creatinine 3.87 mg/dL (0.70-1.30) H 04/29/17 14:45 Est GFR ( Amer) 19 (> 60) L 04/29/17 14:45 Est GFR (Non-Af Amer) 16 (> 60) L 04/29/17 14:45 Glucose 316 mg/dL (70-105) H 04/29/17 14:45 POC Glucose 176 (58-89) H 04/28/17 22:50 Calculated Osmolality 316 (280-300) H 04/29/17 14:45 Calcium 7.9 mg/dL (8.6-10.3) L 04/29/17 14:45 Iron 55 mcg/dL (65-175) L 04/29/17 03:02 Transferrin < 75 mg/dL (203-362) L 04/29/17 03:02 AST 4 Units/L (13-39) L 04/26/17 04:00 ALT 3 Units/L (7-52) L 04/26/17 04:00 Serum Total Protein 4.0 g/dL (6.4-8.9) L 04/26/17 04:00 Albumin 1.7 g/dL (3.5-5.7) L 04/26/17 04:00 Globulin 2.3 g/dL (2.4-3.5) L 04/26/17 04:00 Albumin/Globulin Ratio 0.7 (1.1-2.2) L 04/26/17 04:00 Beta-Hydroxybutyric Acd > 2.00 mmol/L (0.02-0.27) H 04/29/17 14:45 Urine Clarity Turbid (Clear) A 04/22/17 07:30 Urine Protein 100 mg/dL (Neg-Trace) H 04/22/17 07:30 Urine Blood Large (Negative) H 04/22/17 07:30 Ur Leukocyte Esterase Large (Negative) H 04/22/17 07:30 Urine Microscopic RBC TNTC per hpf (0-3) H 04/22/17 07:30 Urine Microscopic WBC TNTC per hpf (0-3) H 04/22/17 07:30 Ur Squamous Epith Cells Many per lpf (None-Few) H 04/22/17 07:30 - Microbiology Findings Microbiology Findings: Microbiology, Last 48 Hours 04/25/17 09:53 Sputum Culture - Final Sputum - Clinical Findings Intake & Output: Intake & Output 04/29/17 04/29/17 04/29/17 07:59 15:59 23:59 Intake Total 2522 / 2522 490 / 490 Output Total 200 / 200 225 / 225 Balance 2322 / 2322 265 / 265 Weight - Attending Attestation - Attending Attestation I saw and evaluated this patient and my medical decision-making was reviewed with the Resident Physician. I agree with the documented findings, disposition and treatment plan as described except to the extent set forth below. We independently had [id number] contact with the patient Patient seen and examined at bedside Labs, radiology, chart personally reviewed. Management was reviewed during multidisciplinary critical care rounds. COMPUTING SYSTEMS MECHANIC:Patient is alert follows commands he said didnt have any complaints Pulm:Patient is on Nasal cannula with acceptable oxygenation and ventilation ABG showed uncompensated metabolic acidosis 04/26 : Sputum growing MRSA and Proteus looks like health care associated pneumonia. 04/27 Patient did well on spontaneous breathing trial dropped the pressure support to 5 and he passed the SBTover 4 hrs patient was extubated did well will put him on BIPAP tonight 04/28 Patient did well during the day time and night time be on BIPAP 04/29 Will continue BIPAP at night if needed during the day Cards:Patient is hemodynamically stable during my exam will hold off diuresis as hypernatremia is setting in FEN-GI:As per dietary recs . Patient says he has changed the mind needs PEG tube Renal:KARI , Renal following -hypernatremia will hold off diuresis ID: sputum growing MRSA and Proteus patient is on appropriate coverage. Heme/Onc:reviewed , DVT prophylaxis Endo: Glucose Monitored Integ/MSK: Skin Care per routine ICU Nursing Protocol to prevent ulcers. Lines: All lines examined without evidence of infection : Dispo: Critically ill high chance of cardio respiratory failure CODE: Full Code
[2017-04-29] MEDS: Vancomycin Oral Soln 250 MG/5 ML UDC PO SCH ×4 (08:54→20:33)
[2017-04-29] MEDS: Pantoprazole 40 MG VIAL IVP SCH (08:54)
[2017-04-29] MEDS: Chlorhexidine Rinse 15 ML MOUTHWASH MM SCH ×2 (08:56→20:33)
[2017-04-29] MEDS ORDERED: Ferrous Sulfate Oral Soln 300 MG/5 ML UDC PO SCH (09:00)
[2017-04-29] MEDS: Erythromycin OPTH Oint LEFT EYE SCH (09:24)
[2017-04-29] MEDS ORDERED: Acetaminophen 325 MG TABLET PO PRN (12:08)
[2017-04-29] MEDS ORDERED: D5% in Water 1,000 ML IVC PRN (12:08)
[2017-04-29] MEDS ORDERED: Dextrose Gel 15 GM/37.5 ML TUBE PO PRN ×2 (12:08)
[2017-04-29] MEDS ORDERED: *HR* FentaNYL (PF) 100 MCG/2 ML VIAL IVP PRN (12:08)
[2017-04-29] MEDS ORDERED: Ringers Solution, Lactated 1,000 ML ONE ×2 (13:39→14:42)
[2017-04-29 14:15] LABS: ABG Base Excess -10 mEq/L (-2 to 3); ABG HCO3 16 mEq/L (21-27); ABG Oxygen Saturation 97 % (95-98); ABG PCO2 35 mmHg (35-45); ABG PH 7.27 pH Units (7.32-7.45); ABG PO2 107 mmHg (85-104); ABG TCO2 17 mEq/L (20-26)
[2017-04-29] MEDS ORDERED: Ringers Solution, Lactated 1,000 ML IVC ONE ×2 (14:29→15:46)
[2017-04-29 14:59] LABS: Basophils # 0.1 K/mcL (0.0-0.2); Basophils % 1.5 %; Eosinophils # 0.2 K/mcL (0.0-0.6); Eosinophils % 4.8 %; Hematocrit 27.2 % (37.5-50.1); Hemoglobin 7.9 g/dL (12.9-16.9); Immature Granulocytes % 0.3 % (0-4); Lymphocytes # 0.8 K/mcL (0.6-4.6); Lymphocytes % 22.5 %; Mean Corpuscular Hemoglobin 27.8 pg (28.0-33.3); Mean Corpuscular Volume 95.8 fL (83.0-100.0); Mean Platelet Volume 11.5 fL (9.4-12.4); Monocytes # 0.2 K/mcL (0.0-1.3); Monocytes % 5.7 %; Neutrophils # 2.2 K/mcL (1.6-8.9); Platelet Count 162 K/mcL (140-400); Red Blood Count 2.84 M/mcL (4.19-5.50); Red Cell Distribution Width 15.8 % (11.5-14.5); Segmented Neutrophils % 65.2 %
[2017-04-29] MEDS ORDERED: Levofloxacin 750 MG/150 ML 750 MG/150 ML BAG IVPB SCH (15:00)
[2017-04-29] MEDS ORDERED: Vancomycin 1 EACH in EMPTY BAG 1 EACH IVPB SCH (15:00)
[2017-04-29 15:52] LABS: Calcium 7.9 mg/dL (8.6-10.3); Potassium 5.1 mEq/L (3.5-5.1)
--- NOTE | 2017-04-29 15:56 | Procedure Note ---
Date of procedure: 04/29/17 Pre-op diagnosis: Hypotension Post-op diagnosis: same Procedure: Procedure Note: Central Venous Catheter Insertion Indication: Shock Attending Physician: MD Shellie Supervisor Car Installations: Randall Son DO Indication: This is a 61 year-old man with respiratory distress, septic shock and hypotension due to aspiration pneumonia. Consent: Detailed explanation of the procedure, treatment options, risks including but not limited to infection and bleeding, and benefits were explained to the patient's son who is power of disability attorney. A written informed consent was obtained after to nurses witnessed consent over the phone. Technique: A time out was preformed identifying the correct procedure, the correct location with the nursing staff. The right neck was prepped with 2% chlorhexidine and draped with a full length sterile sheet in the usual fashion. The right internal jugular vein was accessed under ultrasound guidance with an 18 gauge thin wall needle. A triple lumen was inserted via the seldinger technique. Blood was withdrawn from all lumens and flushed with normal saline. The catheter was sutured in place and a sterile dressing was applied over the site prior to removal of drapes. The patient tolerated the procedure well and there were no complications. Chest x ray: Ordered and interpreted by myself with no evidence of pneumothorax EBL: 2mL Complication: None Anesthesia: local Surgeon: Randall Son Was there an trust administrative assistant present: Yes Hand Method Lasting Machine Operator: Isidro Hensley Estimated blood loss (cc): 2 Specimen: n/a Pathology: none sent Condition: stable Disposition: ICU
--- NOTE | 2017-04-29 15:59 | Event Note ---
Date of Encounter: 04/29/17 Time of Encounter: 15:56 I was called to the bedside of this patient by the nurse was concerned that the patient's blood pressure had been dropping over the course of the day. He was supposed to be transferred to the medical floor, however his blood pressure was following rapidly. His lowest blood pressure was approximately 74/38, and he did not seem to benefit from 2 L of lactated Ringer's. Stat labs demonstrated that the patient did have a high anion gap acidosis, although the source is unclear at this time. The patient is a diabetic and has had difficult to control glucose in the past, so I did order serum ketones which are currently pending. At that time I did speak with the attending physician, Dr. Pedro, who suggested that we obtain a central line. I placed a central line under the supervision of Dr. Steve, and I started the patient on Levophed titration. Additionally, I started the patient on vancomycin and Levaquin in order to broaden coverage for what could be hospital acquired or aspiration pneumonia. Repeat blood cultures were ordered. Family was notified of the patient's condition.
[2017-04-29] MEDS: Norepinephrine 4 MG in D5% in Water 250 ML IVC SCH (16:30)
[2017-04-29 22:48] LABS: Calcium 8.1 mg/dL (8.6-10.3)
[2017-04-29 23:13] LABS: Basophils # 0.1 K/mcL (0.0-0.2); Eosinophils # 0.3 K/mcL (0.0-0.6); Eosinophils % 3.7 %; Hematocrit 31.3 % (37.5-50.1); Hemoglobin 9.5 g/dL (12.9-16.9); Immature Granulocytes % 0.4 % (0-4); Lymphocytes # 1.4 K/mcL (0.6-4.6); Lymphocytes % 17.8 %; Mean Corpuscular HGB Conc 30.4 g/dL (31.6-35.5); Mean Corpuscular Hemoglobin 28.4 pg (28.0-33.3); Mean Corpuscular Volume 93.4 fL (83.0-100.0); Mean Platelet Volume 10.9 fL (9.4-12.4); Monocytes # 0.7 K/mcL (0.0-1.3); Monocytes % 8.6 %; Neutrophils # 5.4 K/mcL (1.6-8.9); Platelet Count 296 K/mcL (140-400); Red Blood Count 3.35 M/mcL (4.19-5.50); Red Cell Distribution Width 15.8 % (11.5-14.5); Segmented Neutrophils % 68.5 %
[2017-04-30] MEDS: Piperacillin/Tazobactam 3.375 GM in 0.9 % Sodium Chloride Mini Bag 100 ML IVPB SCH (03:24)
[2017-04-30 03:54] LABS: Basophils # 0.1 K/mcL (0.0-0.2); Basophils % 1.2 %; Eosinophils # 0.3 K/mcL (0.0-0.6); Eosinophils % 6.9 %; Hematocrit 25.3 % (37.5-50.1); Immature Granulocytes % 0.5 % (0-4); Lymphocytes # 1.1 K/mcL (0.6-4.6); Lymphocytes % 25.1 %; Mean Corpuscular Hemoglobin 27.8 pg (28.0-33.3); Mean Corpuscular Volume 92.7 fL (83.0-100.0); Mean Platelet Volume 10.7 fL (9.4-12.4); Monocytes # 0.5 K/mcL (0.0-1.3); Monocytes % 11.2 %; Neutrophils # 2.3 K/mcL (1.6-8.9); Platelet Count 198 K/mcL (140-400); Red Blood Count 2.73 M/mcL (4.19-5.50); Red Cell Distribution Width 15.7 % (11.5-14.5); Segmented Neutrophils % 55.1 %
[2017-04-30 04:02] LABS: Hemoglobin 7.6 g/dL (12.9-16.9)
[2017-04-30 04:13] LABS: Calcium 7.9 mg/dL (8.6-10.3); Potassium 3.8 mEq/L (3.5-5.1)
[2017-04-30 04:47] LABS: ABG Base Excess -3 mEq/L (-2 to 3); ABG HCO3 23 mEq/L (21-27); ABG Oxygen Saturation 99 % (95-98); ABG PCO2 46 mmHg (35-45); ABG PH 7.32 pH Units (7.32-7.45); ABG PO2 148 mmHg (85-104); ABG TCO2 25 mEq/L (20-26)
[2017-04-30] MEDS: *HR* Heparin 5,000 UNIT/ML VIAL SQ SCH ×2 (06:05→18:26)
[2017-04-30] MEDS: Insulin LISPRO 300 UNITS/3 ML VIAL SQ SCH ×4 (07:27→21:17)
[2017-04-30] MEDS: *HR* Dextrose 50 % in Water (Syg) 50 ML SYRINGE IVP PRN ×2 (07:35→12:18)
[2017-04-30] MEDS: Pantoprazole 40 MG VIAL IVP SCH (07:37)
[2017-04-30] MEDS: Chlorhexidine Rinse 15 ML MOUTHWASH MM SCH ×2 (07:38→20:13)
[2017-04-30] MEDS: Ferrous Sulfate Oral Soln 300 MG/5 ML UDC PO SCH (07:38)
[2017-04-30] MEDS: Vancomycin Oral Soln 250 MG/5 ML UDC PO SCH ×4 (07:39→20:13)
[2017-04-30] MEDS ORDERED: Aminoglycoside Consult 1 EACH MC ONE (08:02)
--- NOTE | 2017-04-30 08:35 | Nephrology Progress Note ---
Date of Encounter: 04/30/17 Time of Encounter: 08:33 - Assessment and Plan (1) KARI (acute kidney injury) Current Visit: No Status: Acute The patient's renal function is stable. He was hypotensive last night and has sinus bradycardia this morning. In a place him on a maintenance IV of normal saline. Renal function is stable. (2) UTI (urinary tract infection) Current Visit: No Status: Chronic Qualifiers: Urinary tract infection type: acute cystitis Hematuria presence: without hematuria Qualified Code(s): N30.00 - Acute cystitis without hematuria Subjective Principal diagnosis: Sepsis, Asp PNA Interval history: The patient apparently became more hypotensive during the night. He received some IV fluids and was placed on levo fed. His heart rate this morning is in the low to mid 40s. Renal function is about the same. His serum sodium has improved. His serum bicarbonate was lower last night but appears to be better today. Objective - Vital Signs Vital signs: Vital Signs Temp Pulse Resp BP Pulse Ox 04/30/17 06:00 47 12 116/57 100 04/30/17 05:00 52 13 108/54 100 04/30/17 04:51 96.2 F L 04/30/17 04:00 54 13 128/68 100 04/30/17 03:39 11 131/70 100 04/30/17 03:30 60 11 131/70 100 04/30/17 02:00 60 14 130/72 100 04/30/17 01:30 60 14 152/77 100 04/30/17 00:30 61 14 144/81 100 04/29/17 23:56 96.2 F L 04/29/17 23:30 64 16 149/75 100 04/29/17 22:00 67 16 147/76 100 04/29/17 21:30 69 18 158/77 100 04/29/17 20:30 67 16 151/72 100 04/29/17 20:26 97.3 F L 04/29/17 19:30 94 20 128/71 99 04/29/17 18:15 79 21 105/58 97 04/29/17 17:15 80 20 125/65 97 04/29/17 16:45 59 19 78/48 98 04/29/17 15:45 61 19 70/48 98 04/29/17 14:45 64 20 77/40 97 04/29/17 13:45 64 19 74/41 97 04/29/17 12:45 66 20 80/49 98 04/29/17 11:45 70 20 110/55 99 04/29/17 10:45 63 19 104/51 99 04/29/17 09:45 59 19 99/53 99 04/29/17 08:45 61 19 119/61 98 Intake and Output 04/29/17 04/30/17 04/30/17 23:59 07:59 15:59 Intake Total 644 / 644 89.2 / 89.2 Output Total 275 / 275 100 / 100 Balance 369 / 369 -10.8 / -10.8 Intake: IV Fluids 404 / 404 89.2 / 89.2 Levophed 4 MG In Dextrose 5% 154 / 154 89.2 / 89.2 250 ML @ 8 MCG/MIN 30.48 mls/hr IVC CONT ALESSANDRA Rx#:[id number] Levaquin Premix 750mg/150 mL 150 / 150 750 mg In 150 ml @ 100 mls/hr IVPB Q48H ALESSANDRA Rx#:[id number] Zosyn 3.375 GM In 0.9 % Sodium 100 / 100 Chloride (Mini-Bag +) 100 ML @ 25 mls/hr IVPB Q12H ALESSANDRA Rx#: [id number] Oral 240 / 240 Output: Catheter 275 / 275 100 / 100 Other: Weight 209 kg 62.3 kg Blood Glucose* 282 91 Patient Weight 04/30/17 23:59 Weight 62.3 kg - General Appearance Exam: Patient is currently resting comfortably. He is on BiPAP. He denies any complaints. Lungs diminished breath sounds. Heart regular rate and rhythm. Sinus bradycardia on the monitor. Abdomen is benign. There is some mild lower extremity swelling. - Lab 04/30/17 03:30 04/30/17 03:30 Most recent lab results ABG pH 7.32 pH Units (7.32-7.45) 04/30/17 04:42 ABG pCO2 46 mmHg (35-45) H 04/30/17 04:42 ABG pO2 148 mmHg (85-104) H 04/30/17 04:42 ABG HCO3 23 mEq/L (21-27) 04/30/17 04:42 ABG O2 Saturation 99 % (95-98) H 04/30/17 04:42 Calcium 7.9 mg/dL (8.6-10.3) L 04/30/17 03:30 Magnesium 2.1 mg/dL (1.6-2.6) 04/28/17 03:25 Urine Creatinine 28 mg/dL 04/25/17 16:00 Urine Sodium 99.1 mEq/L 04/25/17 16:00 - VTE Documentation of Mechanical Device: Intermittent pneumatic compression device Consult Discharge Plan - Plan Referrals: Cecil Carter MD [Primary Care Provider] -
--- NOTE | 2017-04-30 08:45 | Pulmonology Progress Note ---
<NayelyMagdaleno M - Last Filed: 04/30/17 12:49> Date of Encounter: 04/30/17 Objective PUL Vital signs: Last Vital Signs Temp 96.2 F L 04/30/17 08:00 Pulse 48 04/30/17 12:00 Resp 16 04/30/17 12:00 BP 138/80 04/30/17 12:00 Pulse Ox 100 04/30/17 12:00 Results - Laboratory Findings CBC and BMP: 04/30/17 03:30 04/30/17 03:30 ABG ABG pH 7.32 pH Units (7.32-7.45) 04/30/17 04:42 ABG pCO2 46 mmHg (35-45) H 04/30/17 04:42 ABG pO2 148 mmHg (85-104) H 04/30/17 04:42 ABG O2 Saturation 99 % (95-98) H 04/30/17 04:42 PT/INR, D-dimer PT 10.5 Seconds (9.4-12.1) 04/14/17 10:25 Abnormal lab findings: Abnormal lab results WBC 4.2 K/mcL (4.3-11.1) L 04/30/17 03:30 RBC 2.73 M/mcL (4.19-5.50) L 04/30/17 03:30 Hgb 7.6 g/dL (12.9-16.9) L D 04/30/17 03:30 Hct 25.3 % (37.5-50.1) L 04/30/17 03:30 MCH 27.8 pg (28.0-33.3) L 04/30/17 03:30 MCHC 30.0 g/dL (31.6-35.5) L 04/30/17 03:30 RDW 15.7 % (11.5-14.5) H 04/30/17 03:30 Nucleated RBCs/100 WBC 0.7 /100 WBC (0) H 04/29/17 04:00 Platelet Estimate Slight Decrease (Normal) L 04/16/17 04:40 Immature Plt Fraction 6.7 % (1.1-6.1) H 04/26/17 04:00 Hypochromasia Present (Not Present) A 04/16/17 04:40 APTT 83.0 Seconds (26.0-36.0) H 04/14/17 10:25 ABG pCO2 46 mmHg (35-45) H 04/30/17 04:42 ABG pO2 148 mmHg (85-104) H 04/30/17 04:42 ABG O2 Saturation 99 % (95-98) H 04/30/17 04:42 ABG Base Excess -3 mEq/L (-2 to 3) L 04/30/17 04:42 VBG pO2 96 mmHg (25-50) H 04/28/17 03:46 Chloride 110 mEq/L (98-107) H 04/30/17 03:30 Carbon Dioxide 22 mEq/L (23-29) L 04/30/17 03:30 BUN 57 mg/dL (8-23) H 04/30/17 03:30 Creatinine 3.80 mg/dL (0.70-1.30) H 04/30/17 03:30 Est GFR ( Amer) 20 (> 60) L 04/30/17 03:30 Est GFR (Non-Af Amer) 16 (> 60) L 04/30/17 03:30 Glucose 109 mg/dL (70-105) H 04/30/17 03:30 POC Glucose 209 (58-89) H 04/29/17 22:19 Calculated Osmolality 306 (280-300) H 04/30/17 03:30 Calcium 7.9 mg/dL (8.6-10.3) L 04/30/17 03:30 Iron 55 mcg/dL (65-175) L 04/29/17 03:02 Transferrin < 75 mg/dL (203-362) L 04/29/17 03:02 AST 4 Units/L (13-39) L 04/26/17 04:00 ALT 3 Units/L (7-52) L 04/26/17 04:00 Serum Total Protein 4.0 g/dL (6.4-8.9) L 04/26/17 04:00 Albumin 1.7 g/dL (3.5-5.7) L 04/26/17 04:00 Globulin 2.3 g/dL (2.4-3.5) L 04/26/17 04:00 Albumin/Globulin Ratio 0.7 (1.1-2.2) L 04/26/17 04:00 Beta-Hydroxybutyric Acd > 2.00 mmol/L (0.02-0.27) H 04/29/17 14:45 Urine Clarity Turbid (Clear) A 04/22/17 07:30 Urine Protein 100 mg/dL (Neg-Trace) H 04/22/17 07:30 Urine Blood Large (Negative) H 04/22/17 07:30 Ur Leukocyte Esterase Large (Negative) H 04/22/17 07:30 Urine Microscopic RBC TNTC per hpf (0-3) H 04/22/17 07:30 Urine Microscopic WBC TNTC per hpf (0-3) H 04/22/17 07:30 Ur Squamous Epith Cells Many per lpf (None-Few) H 04/22/17 07:30 - Microbiology Findings Microbiology Findings: Microbiology, Last 48 Hours 04/25/17 09:53 Sputum Culture - Final Sputum - Clinical Findings Intake & Output: Intake & Output 04/29/17 04/30/17 04/30/17 23:59 07:59 15:59 Intake Total 644 / 644 89.2 / 89.2 Output Total 275 / 275 100 / 100 Balance 369 / 369 -10.8 / -10.8 Weight 209 kg 62.3 kg Consult Discharge Plan - Plan Referrals: Cecil Carter MD [Primary Care Provider] - - Attending Attestation I examined this patient and my medical decision-making was reviewed with the Resident Physician. I agree with the documented findings, disposition and treatment plan as described except to the extent set forth below. Patient seen and examined. Labs, radiology, chart personally reviewed. 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 Pulmonary: Acceptable oxygenation and ventilation. Patient is using noninvasive ventilation and repeat his chest x-ray personally with evidence of pneumonia which possibly aspiration and patient may need PEG tube Cardiovascular: stable now and was on Levophed we will continue monitor. GI: Nutrition per dietary and GI prophylaxis per routine Heme: DVT prophylaxis per routine ID: Continue antibiotics and plan to de-escalation. Stop antibiotics except vancomycin orally since patient lactic acid was normal and continue to monitor Renal; urine out put and renal funtion reviewed Endorcine: blood glucose is monitored Lines: all lines checked and no evidence of infections Skin: skin care to prevent pressure ulcers per nursing routine care Overall prognosis is poor <Ezra Quintanilla - Last Filed: 04/30/17 14:41> Date of Encounter: 04/30/17 Time of Encounter: 08:00 Assessment and Plan (1) Respiratory failure with hypoxia Current Visit: Yes Status: Acute In no acute distress and saturating well on nasal O2 Qualifiers: Chronicity: acute Qualified Code(s): J96.01 - Acute respiratory failure with hypoxia (2) Uvpnw-me-anvbwcf kidney injury Current Visit: Yes Status: Acute Nephrology following -- changed IVF to maintenance NS -- renal function stable; monitor daily -- cont to follow with nephrology Qualifiers: Acute renal failure type: unspecified Chronic kidney disease stage: stage 3 (moderate) Qualified Code(s): N17.9 - Acute kidney failure, unspecified; N18.3 - Chronic kidney disease, stage 3 (moderate); N18.3 - Chronic kidney disease, stage 3 (moderate) (3) C. difficile diarrhea Current Visit: Yes Status: Acute Cont PO Vancomycin; on day 11 of 14 Stool soft - liquid with green-brown color (4) Anemia Current Visit: Yes Status: Chronic Hgb 7.6g on AM check which is technically down from PM level of 9.5 -- 9.5g was an outlying high value that isn't easily accounted for -- will continue to trend hemoglobin and further evaluate for acute loss if any downtrend -- CBC this afternoon -- transfuse as needed Qualifiers: Anemia type: due to chronic kidney disease Chronic kidney disease stage: stage 5, not on chronic dialysis Qualified Code(s): N18.5 - Chronic kidney disease, stage 5; D63.1 - Anemia in chronic kidney disease; D63.1 - Anemia in chronic kidney disease (5) Diabetes Current Visit: Yes Status: Chronic Pt malnutritioned and requests PEG tube as previously discussed Cont low-dose SSI and start tube feeds Qualifiers: Diabetes mellitus type: type 2 Diabetes mellitus 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: with petroleum terminal 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 Diabetes mellitus complication status: with hyperglycemia Qualified Code(s): E11.65 - Type 2 diabetes mellitus with hyperglycemia; Z79.4 - [facility] (current) use of insulin; Z79.4 - [facility] (current) use of insulin; Z79.4 - [facility] (current) use of insulin; Z79.4 - [facility] (current ) use of insulin (6) Protein calorie malnutrition Current Visit: Yes Status: Acute Discussed with patient option of PEG feeding; patient requests pursuit of placement -- GI consult placed and call completed (spoke with Dr. Santos at [phone]) -- will place order for PEG feedings in AM after placement -- NPO at midnight Qualifiers: Protein-calorie malnutrition severity: unspecified severity Qualified Code( s): E46 - Unspecified protein-calorie malnutrition (7) DVT prophylaxis Current Visit: Yes Status: Acute subq heparin Subjective Principal diagnosis: Sepsis, Asp PNA Interval history: Comfortable and restful at bedside this AM; follows commands. Did have hypotensive episode previous day with lowest BP 70/48 (current 134/63); refractory to 2L LR, so central line was placed and patient started on Levophed which is presently titrated off. Labs yesterday demonstrated elevated anion gap which has demonstrated resolution on AM labs. Discussed nutrition with patient. Speech Therapy reports satisfactory bedside swallow. Patient does not feel his appetite is sufficient to meet nutritional needs and requests placement of PEG tube as previously discussed. Objective PUL Vital signs: Last Vital Signs Temp 96.2 F L 04/30/17 08:00 Pulse 50 04/30/17 08:00 Resp 18 04/30/17 08:00 BP 134/63 04/30/17 08:00 Pulse Ox 100 04/30/17 08:00 General appearance: no acute distress, asleep Eyes: nonicteric, other (pale conjunctiva) ENT: oropharynx moist Auscultation: bilateral: clear Cardiovascular: other (Rhythm normal; HR 50s; no murmurs heard) Gastrointestinal: soft, non-tender, non-distended Extremities: no cyanosis, no edema normal mental status, pupils equal and round affect normal Results - Laboratory Findings CBC and BMP: 04/30/17 03:30 04/30/17 03:30 ABG ABG pH 7.32 pH Units (7.32-7.45) 04/30/17 04:42 ABG pCO2 46 mmHg (35-45) H 04/30/17 04:42 ABG pO2 148 mmHg (85-104) H 04/30/17 04:42 ABG O2 Saturation 99 % (95-98) H 04/30/17 04:42 PT/INR, D-dimer PT 10.5 Seconds (9.4-12.1) 04/14/17 10:25 Abnormal lab findings: Abnormal lab results WBC 4.2 K/mcL (4.3-11.1) L 04/30/17 03:30 RBC 2.73 M/mcL (4.19-5.50) L 04/30/17 03:30 Hgb 7.6 g/dL (12.9-16.9) L D 04/30/17 03:30 Hct 25.3 % (37.5-50.1) L 04/30/17 03:30 MCH 27.8 pg (28.0-33.3) L 04/30/17 03:30 MCHC 30.0 g/dL (31.6-35.5) L 04/30/17 03:30 RDW 15.7 % (11.5-14.5) H 04/30/17 03:30 Nucleated RBCs/100 WBC 0.7 /100 WBC (0) H 04/29/17 04:00 Platelet Estimate Slight Decrease (Normal) L 04/16/17 04:40 Immature Plt Fraction 6.7 % (1.1-6.1) H 04/26/17 04:00 Hypochromasia Present (Not Present) A 04/16/17 04:40 APTT 83.0 Seconds (26.0-36.0) H 04/14/17 10:25 ABG pCO2 46 mmHg (35-45) H 04/30/17 04:42 ABG pO2 148 mmHg (85-104) H 04/30/17 04:42 ABG O2 Saturation 99 % (95-98) H 04/30/17 04:42 ABG Base Excess -3 mEq/L (-2 to 3) L 04/30/17 04:42 VBG pO2 96 mmHg (25-50) H 04/28/17 03:46 Chloride 110 mEq/L (98-107) H 04/30/17 03:30 Carbon Dioxide 22 mEq/L (23-29) L 04/30/17 03:30 BUN 57 mg/dL (8-23) H 04/30/17 03:30 Creatinine 3.80 mg/dL (0.70-1.30) H 04/30/17 03:30 Est GFR ( Amer) 20 (> 60) L 04/30/17 03:30 Est GFR (Non-Af Amer) 16 (> 60) L 04/30/17 03:30 Glucose 109 mg/dL (70-105) H 04/30/17 03:30 POC Glucose 209 (58-89) H 04/29/17 22:19 Calculated Osmolality 306 (280-300) H 04/30/17 03:30 Calcium 7.9 mg/dL (8.6-10.3) L 04/30/17 03:30 Iron 55 mcg/dL (65-175) L 04/29/17 03:02 Transferrin < 75 mg/dL (203-362) L 04/29/17 03:02 AST 4 Units/L (13-39) L 04/26/17 04:00 ALT 3 Units/L (7-52) L 04/26/17 04:00 Serum Total Protein 4.0 g/dL (6.4-8.9) L 04/26/17 04:00 Albumin 1.7 g/dL (3.5-5.7) L 04/26/17 04:00 Globulin 2.3 g/dL (2.4-3.5) L 04/26/17 04:00 Albumin/Globulin Ratio 0.7 (1.1-2.2) L 04/26/17 04:00 Beta-Hydroxybutyric Acd > 2.00 mmol/L (0.02-0.27) H 04/29/17 14:45 Urine Clarity Turbid (Clear) A 04/22/17 07:30 Urine Protein 100 mg/dL (Neg-Trace) H 04/22/17 07:30 Urine Blood Large (Negative) H 04/22/17 07:30 Ur Leukocyte Esterase Large (Negative) H 04/22/17 07:30 Urine Microscopic RBC TNTC per hpf (0-3) H 04/22/17 07:30 Urine Microscopic WBC TNTC per hpf (0-3) H 04/22/17 07:30 Ur Squamous Epith Cells Many per lpf (None-Few) H 04/22/17 07:30 - Microbiology Findings Microbiology Findings: Microbiology, Last 48 Hours 04/25/17 09:53 Sputum Culture - Final Sputum - Clinical Findings Intake & Output: Intake & Output 04/29/17 04/30/17 04/30/17 23:59 07:59 15:59 Intake Total 644 / 644 89.2 / 89.2 Output Total 275 / 275 100 / 100 Balance 369 / 369 -10.8 / -10.8 Weight 209 kg 62.3 kg - VTE Documentation of Mechanical Device: Intermittent pneumatic compression device
[2017-04-30] MEDS: 0.9 % Sodium Chloride 1,000 ML IVC SCH (12:14)
[2017-04-30] MEDS: Norepinephrine 4 MG in D5% in Water 250 ML IVC SCH (18:21)
[2017-04-30 19:25] LABS: Basophils % 1.4 %; Eosinophils # 0.3 K/mcL (0.0-0.6); Hemoglobin 7.3 g/dL (12.9-16.9); Immature Granulocytes % 0.3 % (0-4); Lymphocytes % 34.1 %; Mean Corpuscular HGB Conc 30.4 g/dL (31.6-35.5); Mean Corpuscular Hemoglobin 27.9 pg (28.0-33.3); Mean Corpuscular Volume 91.6 fL (83.0-100.0); Mean Platelet Volume 11.4 fL (9.4-12.4); Monocytes # 0.2 K/mcL (0.0-1.3); Monocytes % 6.9 %; Neutrophils # 1.3 K/mcL (1.6-8.9); Platelet Count 157 K/mcL (140-400); Red Blood Count 2.62 M/mcL (4.19-5.50); Red Cell Distribution Width 15.5 % (11.5-14.5); Segmented Neutrophils % 46.3 %
[2017-05-01] MEDS: Insulin LISPRO 300 UNITS/3 ML VIAL SQ SCH ×7 (00:05→23:18)
[2017-05-01] MEDS: *HR* Heparin 5,000 UNIT/ML VIAL SQ SCH ×2 (06:10→17:20)
[2017-05-01 06:57] LABS: Basophils # 0.1 K/mcL (0.0-0.2); Basophils % 1.1 %; Eosinophils # 0.4 K/mcL (0.0-0.6); Eosinophils % 8.5 %; Hematocrit 22.8 % (37.5-50.1); Hemoglobin 6.9 g/dL (12.9-16.9); Immature Granulocytes % 0.4 % (0-4); Lymphocytes # 0.9 K/mcL (0.6-4.6); Lymphocytes % 19.3 %; Mean Corpuscular HGB Conc 30.3 g/dL (31.6-35.5); Mean Corpuscular Volume 92.7 fL (83.0-100.0); Mean Platelet Volume 11.3 fL (9.4-12.4); Monocytes # 0.3 K/mcL (0.0-1.3); Monocytes % 6.7 %; Platelet Count 158 K/mcL (140-400); Red Blood Count 2.46 M/mcL (4.19-5.50); Red Cell Distribution Width 15.6 % (11.5-14.5)
[2017-05-01 07:01] LABS: Neutrophils # 2.9 K/mcL (1.6-8.9)
[2017-05-01 07:16] LABS: Alanine Aminotransferase < 3 Units/L (7-52); Albumin 1.6 g/dL (3.5-5.7); Albumin/Globulin Ratio 0.8 (1.1-2.2); Alkaline Phosphatase 68 Units/L (34-104); Aspartate Amino Transferase 6 Units/L (13-39); BUN/Creatinine Ratio 13 (6-26); Bilirubin,Total 0.2 mg/dL (0.3-1.0); Blood Urea Nitrogen 54 mg/dL (8-23); Calcium 7.7 mg/dL (8.6-10.3); Carbon Dioxide 21 mEq/L (23-29); Chloride 114 mEq/L (98-107); Globulin 2.1 g/dL (2.4-3.5); Glucose 129 mg/dL (70-105); Osmolality,Calculated 312 (280-300); Potassium 3.4 mEq/L (3.5-5.1); Sodium 143 mEq/L (136-145); Total Protein 3.7 g/dL (6.4-8.9); eGFR For African Americans 18 (> 60); eGFR For Non-African Americans 15 (> 60)
--- NOTE | 2017-05-01 07:34 | Pulmonology Progress Note ---
<NayelyTerilisa M - Last Filed: 05/01/17 08:45> Date of Encounter: 05/01/17 Objective PUL Vital signs: Last Vital Signs Temp 97.8 F 05/01/17 08:00 Pulse 64 05/01/17 06:00 Resp 16 05/01/17 06:00 BP 116/61 05/01/17 06:00 Pulse Ox 92 05/01/17 06:00 Results - Laboratory Findings CBC and BMP: 05/01/17 06:31 05/01/17 06:31 ABG ABG pH 7.32 pH Units (7.32-7.45) 04/30/17 04:42 ABG pCO2 46 mmHg (35-45) H 04/30/17 04:42 ABG pO2 148 mmHg (85-104) H 04/30/17 04:42 ABG O2 Saturation 99 % (95-98) H 04/30/17 04:42 PT/INR, D-dimer PT 10.5 Seconds (9.4-12.1) 04/14/17 10:25 Abnormal lab findings: Abnormal lab results RBC 2.46 M/mcL (4.19-5.50) L 05/01/17 06:31 Hgb 6.9 g/dL (12.9-16.9) L 05/01/17 06:31 Hct 22.8 % (37.5-50.1) L 05/01/17 06:31 MCHC 30.3 g/dL (31.6-35.5) L 05/01/17 06:31 RDW 15.6 % (11.5-14.5) H 05/01/17 06:31 Nucleated RBCs/100 WBC 0.7 /100 WBC (0) H 04/29/17 04:00 Platelet Estimate Slight Decrease (Normal) L 04/16/17 04:40 Immature Plt Fraction 6.7 % (1.1-6.1) H 04/26/17 04:00 Hypochromasia Present (Not Present) A 04/16/17 04:40 APTT 83.0 Seconds (26.0-36.0) H 04/14/17 10:25 ABG pCO2 46 mmHg (35-45) H 04/30/17 04:42 ABG pO2 148 mmHg (85-104) H 04/30/17 04:42 ABG O2 Saturation 99 % (95-98) H 04/30/17 04:42 ABG Base Excess -3 mEq/L (-2 to 3) L 04/30/17 04:42 VBG pO2 96 mmHg (25-50) H 04/28/17 03:46 Potassium 3.4 mEq/L (3.5-5.1) L 05/01/17 06:31 Chloride 114 mEq/L (98-107) H 05/01/17 06:31 Carbon Dioxide 21 mEq/L (23-29) L 05/01/17 06:31 BUN 54 mg/dL (8-23) H 05/01/17 06:31 Creatinine 4.04 mg/dL (0.70-1.30) H 05/01/17 06:31 Est GFR ( Amer) 18 (> 60) L 05/01/17 06:31 Est GFR (Non-Af Amer) 15 (> 60) L 05/01/17 06:31 Glucose 129 mg/dL (70-105) H 05/01/17 06:31 POC Glucose 195 (58-89) H 04/30/17 23:55 Calculated Osmolality 312 (280-300) H 05/01/17 06:31 Calcium 7.7 mg/dL (8.6-10.3) L 05/01/17 06:31 Iron 55 mcg/dL (65-175) L 04/29/17 03:02 Transferrin < 75 mg/dL (203-362) L 04/29/17 03:02 Total Bilirubin 0.2 mg/dL (0.3-1.0) L 05/01/17 06:31 AST 6 Units/L (13-39) L 05/01/17 06:31 ALT < 3 Units/L (7-52) L 05/01/17 06:31 Serum Total Protein 3.7 g/dL (6.4-8.9) L 05/01/17 06:31 Albumin 1.6 g/dL (3.5-5.7) L 05/01/17 06:31 Globulin 2.1 g/dL (2.4-3.5) L 05/01/17 06:31 Albumin/Globulin Ratio 0.8 (1.1-2.2) L 05/01/17 06:31 Beta-Hydroxybutyric Acd > 2.00 mmol/L (0.02-0.27) H 04/29/17 14:45 Urine Clarity Turbid (Clear) A 04/22/17 07:30 Urine Protein 100 mg/dL (Neg-Trace) H 04/22/17 07:30 Urine Blood Large (Negative) H 04/22/17 07:30 Ur Leukocyte Esterase Large (Negative) H 04/22/17 07:30 Urine Microscopic RBC TNTC per hpf (0-3) H 04/22/17 07:30 Urine Microscopic WBC TNTC per hpf (0-3) H 04/22/17 07:30 Ur Squamous Epith Cells Many per lpf (None-Few) H 04/22/17 07:30 - Clinical Findings Intake & Output: Intake & Output 04/30/17 05/01/17 05/01/17 23:59 07:59 15:59 Intake Total 60 / 60 Output Total 250 / 250 150 / 150 100 / 100 Balance -190 / -190 -150 / -150 -100 / -100 Weight 63.7 kg Consult Discharge Plan - Plan Referrals: Cecil Carter MD [Primary Care Provider] - - Attending Attestation I examined this patient and my medical decision-making was reviewed with the Resident Physician. I agree with the documented findings, disposition and treatment plan as described except to the extent set forth below. Patient seen and examined. Labs, radiology, chart personally reviewed. 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 Patient to have a PEG tube Heme: DVT prophylaxis per routine ID: Continue antibiotics and plan to de-escalation Renal; urine out put and renal funtion reviewed Endorcine: blood glucose is monitored Lines: all lines checked and no evidence of infections Skin: skin care to prevent pressure ulcers per nursing routine care Overall prognosis is poor <Ezra Quintanilla - Last Filed: 05/01/17 11:05> Date of Encounter: 05/01/17 Time of Encounter: 08:00 Assessment and Plan (1) Respiratory failure with hypoxia Current Visit: Yes Status: Acute In no acute distress and saturating well on 3L oxygen via nasal cannula Qualifiers: Chronicity: acute Qualified Code(s): J96.01 - Acute respiratory failure with hypoxia (2) Pwujr-mj-ntuvsyu kidney injury Current Visit: Yes Status: Acute Nephrology following -- continuing IVF to maintenance NS -- nephrology supports plan of PEG tube placement which is pending -- renal function stable; monitor daily -- cont to follow with nephrology Qualifiers: Acute renal failure type: unspecified Chronic kidney disease stage: stage 3 (moderate) Qualified Code(s): N17.9 - Acute kidney failure, unspecified; N18.3 - Chronic kidney disease, stage 3 (moderate); N18.3 - Chronic kidney disease, stage 3 (moderate) (3) C. difficile diarrhea Current Visit: Yes Status: Acute Cont PO Vancomycin; on day 12 of 14 Stool soft - liquid with green-brown color (4) Anemia Current Visit: Yes Status: Chronic Hgb 6.9 this AM -- clinically stable at this time with normal vitals; no tachycardia or hypotension -- CBC qAM -- may transfuse if further decrease in Hgb or any worsening of vital signs Qualifiers: Anemia type: due to chronic kidney disease Chronic kidney disease stage: stage 5, not on chronic dialysis Qualified Code(s): N18.5 - Chronic kidney disease, stage 5; D63.1 - Anemia in chronic kidney disease; D63.1 - Anemia in chronic kidney disease (5) Diabetes Current Visit: Yes Status: Chronic Pt malnutritioned and requests PEG tube as previously discussed Cont low-dose SSI and start tube feeds when placed FSBG has been in 100-200 range Qualifiers: Diabetes mellitus type: type 2 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 Santos consulted on 3/12/18 -- begin PEG feedings when placed Qualifiers: Protein-calorie malnutrition severity: unspecified severity Qualified Code( s): E46 - Unspecified protein-calorie malnutrition (7) DVT prophylaxis Current Visit: Yes Status: Acute subq heparin Subjective Principal diagnosis: Sepsis, Asp PNA Interval history: Comfortable and restful at bedside this AM; follows commands. Following discussion regarding PEG tube yesterday, patient did ask to defer placement for a day so he could think about it. GI stated could place PEG tube sometime this AM. No further hypotension off of Levophed. Hgb did decrease to 6.9 on AM labs , but patient is clinically stable at this time. No gross hematochezia/melena. No acute complaints. Objective PUL Vital signs: Last Vital Signs Temp 97.8 F 05/01/17 05:06 Pulse 64 05/01/17 06:00 Resp 16 05/01/17 06:00 BP 116/61 05/01/17 06:00 Pulse Ox 92 05/01/17 06:00 CONSTITUTIONAL: somnolent, but AOx3 in no apparent distress; malnourished conditioning HEAD: Normocephalic; atraumatic. EYES: PERRL, no scleral icterus, no drainage, no conjunctival injection, appreciable scleral pallor NOSE: nasal cannula in place Oropharynx: pink/moist RESP: NRD without use of accessory musculature, CTA b/l with no wheezes/rales/ rhonchi CARD: Regular rhythm, without murmurs, rubs, or gallop ABD: soft, non-tender SKIN: general pallor, no diaphoresis,mottling,jaundice,cyanosis EXT: DP/Rad pulses 2+ and symmetrical; 2+ pitting edema bilateral LE; no other lesions seen NEURO: follows commands PSYCH: appropriate mood/affect Results - Laboratory Findings CBC and BMP: 05/01/17 06:31 05/01/17 06:31 ABG ABG pH 7.32 pH Units (7.32-7.45) 04/30/17 04:42 ABG pCO2 46 mmHg (35-45) H 04/30/17 04:42 ABG pO2 148 mmHg (85-104) H 04/30/17 04:42 ABG O2 Saturation 99 % (95-98) H 04/30/17 04:42 PT/INR, D-dimer PT 10.5 Seconds (9.4-12.1) 04/14/17 10:25 Abnormal lab findings: Abnormal lab results RBC 2.46 M/mcL (4.19-5.50) L 05/01/17 06:31 Hgb 6.9 g/dL (12.9-16.9) L 05/01/17 06:31 Hct 22.8 % (37.5-50.1) L 05/01/17 06:31 MCHC 30.3 g/dL (31.6-35.5) L 05/01/17 06:31 RDW 15.6 % (11.5-14.5) H 05/01/17 06:31 Nucleated RBCs/100 WBC 0.7 /100 WBC (0) H 04/29/17 04:00 Platelet Estimate Slight Decrease (Normal) L 04/16/17 04:40 Immature Plt Fraction 6.7 % (1.1-6.1) H 04/26/17 04:00 Hypochromasia Present (Not Present) A 04/16/17 04:40 APTT 83.0 Seconds (26.0-36.0) H 04/14/17 10:25 ABG pCO2 46 mmHg (35-45) H 04/30/17 04:42 ABG pO2 148 mmHg (85-104) H 04/30/17 04:42 ABG O2 Saturation 99 % (95-98) H 04/30/17 04:42 ABG Base Excess -3 mEq/L (-2 to 3) L 04/30/17 04:42 VBG pO2 96 mmHg (25-50) H 04/28/17 03:46 Potassium 3.4 mEq/L (3.5-5.1) L 05/01/17 06:31 Chloride 114 mEq/L (98-107) H 05/01/17 06:31 Carbon Dioxide 21 mEq/L (23-29) L 05/01/17 06:31 BUN 54 mg/dL (8-23) H 05/01/17 06:31 Creatinine 4.04 mg/dL (0.70-1.30) H 05/01/17 06:31 Est GFR ( Amer) 18 (> 60) L 05/01/17 06:31 Est GFR (Non-Af Amer) 15 (> 60) L 05/01/17 06:31 Glucose 129 mg/dL (70-105) H 05/01/17 06:31 POC Glucose 195 (58-89) H 04/30/17 23:55 Calculated Osmolality 312 (280-300) H 05/01/17 06:31 Calcium 7.7 mg/dL (8.6-10.3) L 05/01/17 06:31 Iron 55 mcg/dL (65-175) L 04/29/17 03:02 Transferrin < 75 mg/dL (203-362) L 04/29/17 03:02 Total Bilirubin 0.2 mg/dL (0.3-1.0) L 05/01/17 06:31 AST 6 Units/L (13-39) L 05/01/17 06:31 ALT < 3 Units/L (7-52) L 05/01/17 06:31 Serum Total Protein 3.7 g/dL (6.4-8.9) L 05/01/17 06:31 Albumin 1.6 g/dL (3.5-5.7) L 05/01/17 06:31 Globulin 2.1 g/dL (2.4-3.5) L 05/01/17 06:31 Albumin/Globulin Ratio 0.8 (1.1-2.2) L 05/01/17 06:31 Beta-Hydroxybutyric Acd > 2.00 mmol/L (0.02-0.27) H 04/29/17 14:45 Urine Clarity Turbid (Clear) A 04/22/17 07:30 Urine Protein 100 mg/dL (Neg-Trace) H 04/22/17 07:30 Urine Blood Large (Negative) H 04/22/17 07:30 Ur Leukocyte Esterase Large (Negative) H 04/22/17 07:30 Urine Microscopic RBC TNTC per hpf (0-3) H 04/22/17 07:30 Urine Microscopic WBC TNTC per hpf (0-3) H 04/22/17 07:30 Ur Squamous Epith Cells Many per lpf (None-Few) H 04/22/17 07:30 - Clinical Findings Intake & Output: Intake & Output 04/30/17 04/30/17 05/01/17 15:59 23:59 07:59 Intake Total 30 / 30 60 / 60 Output Total 75 / 75 250 / 250 150 / 150 Balance -45 / -45 -190 / -190 -150 / -150 Weight 63.7 kg - VTE Documentation of Mechanical Device: Intermittent pneumatic compression device
[2017-05-01] MEDS: Pantoprazole 40 MG VIAL IVP SCH (08:13)
[2017-05-01] MEDS: Ferrous Sulfate Oral Soln 300 MG/5 ML UDC PO SCH (08:13)
[2017-05-01] MEDS: Chlorhexidine Rinse 15 ML MOUTHWASH MM SCH (08:13)
[2017-05-01] MEDS: Vancomycin Oral Soln 250 MG/5 ML UDC PO SCH ×4 (08:14→21:19)
--- NOTE | 2017-05-01 08:14 | Nephrology Progress Note ---
Date of Encounter: 05/01/17 Time of Encounter: 08:13 - Assessment and Plan (1) KARI (acute kidney injury) Current Visit: No Status: Acute The patient's renal function is stable. He will continue on a maintenance IV because of poor oral intake. Eventually she is going require a PEG tube. (2) UTI (urinary tract infection) Current Visit: No Status: Chronic Qualifiers: Urinary tract infection type: acute cystitis Hematuria presence: without hematuria Qualified Code(s): N30.00 - Acute cystitis without hematuria Subjective Principal diagnosis: Sepsis, Asp PNA Interval history: Clinically the patient appears about the same. He is lying in bed with his eyes closed. He is in no acute distress. He denies any new complaints. Renal function is about the same. His hemoglobin has gone down to 6.9. Objective - Vital Signs Vital signs: Vital Signs Temp Pulse Resp BP Pulse Ox 05/01/17 06:00 64 16 116/61 92 05/01/17 05:06 97.8 F 05/01/17 05:00 64 14 103/55 93 05/01/17 04:00 58 15 104/49 99 05/01/17 03:30 61 17 119/54 99 05/01/17 02:30 57 16 107/54 99 05/01/17 01:00 58 16 120/57 97 05/01/17 00:19 97.6 F 05/01/17 00:00 59 16 120/54 99 04/30/17 23:00 59 17 117/54 100 04/30/17 22:00 67 14 134/65 100 04/30/17 21:50 96.8 F L 04/30/17 21:00 63 16 103/55 100 04/30/17 20:30 64 18 131/58 99 04/30/17 19:00 61 18 132/62 98 04/30/17 18:00 54 16 125/56 100 04/30/17 17:00 55 14 124/57 100 04/30/17 16:00 96.4 F L 53 14 138/99 100 04/30/17 15:00 48 16 128/71 100 04/30/17 14:00 46 16 155/68 100 04/30/17 13:00 44 14 98/48 100 04/30/17 12:00 48 16 138/80 100 04/30/17 11:00 44 14 114/55 100 04/30/17 10:00 43 18 93/44 97 04/30/17 09:00 48 16 149/75 100 Intake and Output 04/30/17 05/01/17 05/01/17 23:59 07:59 15:59 Intake Total 60 / 60 Output Total 250 / 250 150 / 150 Balance -190 / -190 -150 / -150 Intake: Oral 60 / 60 Output: Catheter 250 / 250 150 / 150 Other: Weight 63.7 kg Blood Glucose* 170 195 Patient Weight 05/01/17 23:59 Weight 63.7 kg - General Appearance Exam: Patient is in no acute distress. Lungs coarse breath sounds. Heart regular rate and rhythm. Abdomen is benign. There is minimal lower extremity swelling. - Lab 05/01/17 06:31 05/01/17 06:31 Most recent lab results ABG pH 7.32 pH Units (7.32-7.45) 04/30/17 04:42 ABG pCO2 46 mmHg (35-45) H 04/30/17 04:42 ABG pO2 148 mmHg (85-104) H 04/30/17 04:42 ABG HCO3 23 mEq/L (21-27) 04/30/17 04:42 ABG O2 Saturation 99 % (95-98) H 04/30/17 04:42 Calcium 7.7 mg/dL (8.6-10.3) L 05/01/17 06:31 Magnesium 2.1 mg/dL (1.6-2.6) 04/28/17 03:25 Urine Creatinine 28 mg/dL 04/25/17 16:00 Urine Sodium 99.1 mEq/L 04/25/17 16:00 - VTE Documentation of Mechanical Device: Intermittent pneumatic compression device Consult Discharge Plan - Plan Referrals: Cecil Carter MD [Primary Care Provider] -
[2017-05-01] MEDS ORDERED: Potassium Phosphate 44 MEQ in 0.9 % Sodium Chloride 250 ML IVPB PRN (09:01)
[2017-05-01] MEDS: 0.9 % Sodium Chloride 1,000 ML IVC SCH (10:51)
--- NOTE | 2017-05-01 12:16 | Anesthesia Evaluation PreOp ---
Date of Encounter: 05/01/17 Time of Encounter: 13:04 - Past History Planned Operation: PEG TUBE Cardiac History: CHF Pulmonary History: COPD (CHRONIC RESP FAILURE) Other Medical History: Renal (ACUTE ON CHRONIC RENAL FAILURE), Diabetes Type II , Other (ANEMIA, MALNUTRITION, CDIFF, MRSA SPUTUM) Anesthesia History: No Prior Anesthetic Complications Alcohol Use: none Drug use: none Medications and Allergies Cyclosporine [Restasis] 1 drop BOTH EYES BID 11/28/16 [History] Insulin LISPRO [HumaLOG] 0 unit SQ AD 11/28/16 [History] Loratadine [Allergy Relief] 10 mg PO DAILY PRN 11/28/16 [History] Sucralfate [Carafate] 1 gm PO TID #1 bottle 12/03/16 [Rx] DULoxetine [Cymbalta] 30 mg PO DAILY 02/15/17 [History] hydrALAZINE [HydrALAZINE] 25 mg PO Q8HR #90 tablet 03/29/17 [Rx] Amlodipine Besylate 10 mg PO DAILY 04/14/17 [History] Amoxicillin/Clavulanate [Augmentin] 500 mg PO BID 04/14/17 [History] Erythromycin OPTH Oint 1 appl OP HS 04/14/17 [History] Glucagon,Human Recombinant [Glucagen] 1 mg IM Q30MIN PRN 04/14/17 [History] Mirtazapine [Remeron] 30 mg PO HS 04/14/17 [History] Omeprazole [PriLOSEC] 40 mg PO BID 04/14/17 [History] Polyvinyl Alcohol [Artificial Tears] 1 drop BOTH EYES TID 04/14/17 [History] 3 Allergy/AdvReac Type Severity Reaction Status Date / Time aspirin Allergy Rash Verified 02/15/17 02:44 pseudoephedrine Allergy Rash Verified 02/15/17 02:44 [From [facility]] morphine AdvReac See Verified 04/14/17 11:30 Comments Anesthesia Results - Labs 05/01/17 06:31 05/01/17 06:31 Anesthesia Exam Vital Signs/O2 Sat/Glucose, Most Recent Temp Pulse Resp BP Pulse Ox 98.6 F 72 16 130/58 96 05/01/17 11:00 05/01/17 11:00 05/01/17 11:00 05/01/17 11:00 03/13/18 11:00 Blood Glucose* 164 WEIGHT 64 KG BMI 21 NPO (# of Hours): . 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 Patient informed and consented. Risks, benefits, and alternatives discussed. Patient wishes to proceed.
[2017-05-01] MEDS ORDERED: 0.9 % Sodium Chloride 1,000 ML ONE (13:59)
[2017-05-01 16:07] LABS: Hematocrit 23.3 % (37.5-50.1); Hemoglobin 7.1 g/dL (12.9-16.9)
[2017-05-01 20:40] LABS: Calcium 7.6 mg/dL (8.6-10.3); Potassium 3.5 mEq/L (3.5-5.1)
[2017-05-02] MEDS: 0.9 % Sodium Chloride 1,000 ML IVC SCH ×2 (03:10→16:46)
[2017-05-02] MEDS: *HR* Dextrose 50 % in Water (Syg) 50 ML SYRINGE IVP PRN ×2 (03:47→09:08)
[2017-05-02] MEDS: Insulin LISPRO 300 UNITS/3 ML VIAL SQ SCH ×4 (03:47→21:37)
[2017-05-02 04:57] LABS: Calcium 7.8 mg/dL (8.6-10.3); Potassium 3.1 mEq/L (3.5-5.1)
[2017-05-02] MEDS: *HR* Heparin 5,000 UNIT/ML VIAL SQ SCH ×2 (05:00→16:47)
--- NOTE | 2017-05-02 07:40 | Pulmonology Progress Note ---
<DwightEzra - Last Filed: 05/02/17 09:04> Date of Encounter: 05/02/17 Time of Encounter: 07:40 Assessment and Plan (1) Respiratory failure with hypoxia Current Visit: Yes Status: Acute In no acute distress and saturating well on 1-1.5L oxygen via nasal cannula Qualifiers: Chronicity: acute Qualified Code(s): J96.01 - Acute respiratory failure with hypoxia (2) Miqmj-wy-rvgilrd kidney injury Current Visit: Yes Status: Acute -- Potassium of 3.1 this AM; requested RN to give 40 mEq repletion per PRN orders -- continuing IVF to maintenance NS -- renal function worsening; nephrology considering IP hemodialysis per note -- cont to monitor daily -- cont to follow with nephrology Qualifiers: Acute renal failure type: unspecified Chronic kidney disease stage: stage 3 (moderate) Qualified Code(s): N17.9 - Acute kidney failure, unspecified; N18.3 - Chronic kidney disease, stage 3 (moderate); N18.3 - Chronic kidney disease, stage 3 (moderate) (3) C. difficile diarrhea Current Visit: Yes Status: Acute Cont PO Vancomycin; on day 13 14 (4) Anemia Current Visit: Yes Status: Chronic Hgb 7.1 on recheck on 05/01/17 -- clinically stable at this time with normal vitals; no tachycardia or hypotension -- CBC qAM; pending this AM -- may transfuse if further decrease in Hgb or any worsening of vital signs Qualifiers: Anemia type: due to chronic kidney disease Chronic kidney disease stage: stage 5, not on chronic dialysis Qualified Code(s): N18.5 - Chronic kidney disease, stage 5; D63.1 - Anemia in chronic kidney disease; D63.1 - Anemia in chronic kidney disease (5) Diabetes Current Visit: Yes Status: Chronic PEG tube placed and tube feeding orders place/pending Cont low-dose SSI and start tube feeds FSBG was markedly hypoglycemic overnight, currently corrected to 79 -- expect this to stabilize when tube feedings commence Qualifiers: Diabetes mellitus type: type 2 Diabetes mellitus snf insulin use: with manager terminal use Diabetes mellitus complication status: with hyperglycemia Qualified Code(s): E11.65 - Type 2 diabetes mellitus with hyperglycemia; Z79.4 - long term care administrator (current) use of insulin; Z79.4 - long term care administrator (current) use of insulin; Z79.4 - [facility] (current) use of insulin; Z79.4 - [facility] (current ) use of insulin (6) Protein calorie malnutrition Current Visit: Yes Status: Acute -- Albumin 1.6, protein 3.7 -- PEG placed -- begin PEG feedings today Qualifiers: Protein-calorie malnutrition severity: unspecified severity Qualified Code( s): E46 - Unspecified protein-calorie malnutrition (7) DVT prophylaxis Current Visit: Yes Status: Acute subq heparin Subjective Principal diagnosis: Sepsis, Asp PNA Interval history: Comfortable and restful at bedside this AM; follows commands. PEG placed yesterday by GI; nutrition consult pending. H/H rechecked yesterday afternoon which was 7.1 g (stable from AM lab). Hypokalemic this AM (3.1) and had diminished renal function (nephrology following). Nursing expressed that patient was hypoglycemic overnight (last FSBG 79). Patient has no acute complaints. Objective PUL Vital signs: Last Vital Signs Temp 97.7 F 05/02/17 03:38 Pulse 62 05/02/17 02:56 Resp 18 05/02/17 02:56 BP 146/74 05/02/17 02:56 Pulse Ox 100 05/02/17 02:56 Exam largely unchanged vs 05/01/17 CONSTITUTIONAL: somnolent, but AOx3 in no apparent distress; malnourished conditioning HEAD: Normocephalic; atraumatic. EYES: PERRL, no scleral icterus, no drainage, no conjunctival injection, appreciable scleral pallor NOSE: nasal cannula in place Oropharynx: pink/moist RESP: NRD without use of accessory musculature, CTA b/l with no wheezes/rales/ rhonchi CARD: Regular rhythm, without murmurs, rubs, or gallop ABD: soft, non-tender SKIN: general pallor, no diaphoresis,mottling,jaundice,cyanosis EXT: Rad pulses 2+ and symmetrical; 2+ pitting edema bilateral LE; no other lesions or skin changes seen NEURO: follows commands Results - Laboratory Findings CBC and BMP: 05/01/17 15:00 05/02/17 03:29 ABG ABG pH 7.32 pH Units (7.32-7.45) 04/30/17 04:42 ABG pCO2 46 mmHg (35-45) H 04/30/17 04:42 ABG pO2 148 mmHg (85-104) H 04/30/17 04:42 ABG O2 Saturation 99 % (95-98) H 04/30/17 04:42 PT/INR, D-dimer PT 10.5 Seconds (9.4-12.1) 04/14/17 10:25 Abnormal lab findings: Abnormal lab results RBC 2.46 M/mcL (4.19-5.50) L 05/01/17 06:31 Hgb 7.1 g/dL (12.9-16.9) L 05/01/17 15:00 Hct 23.3 % (37.5-50.1) L 05/01/17 15:00 MCHC 30.3 g/dL (31.6-35.5) L 05/01/17 06:31 RDW 15.6 % (11.5-14.5) H 05/01/17 06:31 Nucleated RBCs/100 WBC 0.7 /100 WBC (0) H 04/29/17 04:00 Platelet Estimate Slight Decrease (Normal) L 04/16/17 04:40 Immature Plt Fraction 6.7 % (1.1-6.1) H 04/26/17 04:00 Hypochromasia Present (Not Present) A 04/16/17 04:40 APTT 83.0 Seconds (26.0-36.0) H 04/14/17 10:25 ABG pCO2 46 mmHg (35-45) H 04/30/17 04:42 ABG pO2 148 mmHg (85-104) H 04/30/17 04:42 ABG O2 Saturation 99 % (95-98) H 04/30/17 04:42 ABG Base Excess -3 mEq/L (-2 to 3) L 04/30/17 04:42 VBG pO2 96 mmHg (25-50) H 04/28/17 03:46 Potassium 3.1 mEq/L (3.5-5.1) L 05/02/17 03:29 Chloride 117 mEq/L (98-107) H 05/02/17 03:29 Carbon Dioxide 21 mEq/L (23-29) L 05/02/17 03:29 BUN 53 mg/dL (8-23) H 05/02/17 03:29 Creatinine 4.36 mg/dL (0.70-1.30) H 05/02/17 03:29 Est GFR ( Amer) 17 (> 60) L 05/02/17 03:29 Est GFR (Non-Af Amer) 14 (> 60) L 05/02/17 03:29 Glucose 27 mg/dL (70-105) L* 05/02/17 03:29 POC Glucose 150 (58-89) H 05/01/17 23:12 Calculated Osmolality 308 (280-300) H 05/02/17 03:29 Calcium 7.8 mg/dL (8.6-10.3) L 05/02/17 03:29 Iron 55 mcg/dL (65-175) L 04/29/17 03:02 Transferrin < 75 mg/dL (203-362) L 04/29/17 03:02 Total Bilirubin 0.2 mg/dL (0.3-1.0) L 05/01/17 06:31 AST 6 Units/L (13-39) L 05/01/17 06:31 ALT < 3 Units/L (7-52) L 05/01/17 06:31 Serum Total Protein 3.7 g/dL (6.4-8.9) L 05/01/17 06:31 Albumin 1.6 g/dL (3.5-5.7) L 05/01/17 06:31 Globulin 2.1 g/dL (2.4-3.5) L 05/01/17 06:31 Albumin/Globulin Ratio 0.8 (1.1-2.2) L 05/01/17 06:31 Beta-Hydroxybutyric Acd > 2.00 mmol/L (0.02-0.27) H 04/29/17 14:45 Urine Clarity Turbid (Clear) A 04/22/17 07:30 Urine Protein 100 mg/dL (Neg-Trace) H 04/22/17 07:30 Urine Blood Large (Negative) H 04/22/17 07:30 Ur Leukocyte Esterase Large (Negative) H 04/22/17 07:30 Urine Microscopic RBC TNTC per hpf (0-3) H 04/22/17 07:30 Urine Microscopic WBC TNTC per hpf (0-3) H 04/22/17 07:30 Ur Squamous Epith Cells Many per lpf (None-Few) H 04/22/17 07:30 - Clinical Findings Intake & Output: Intake & Output 05/01/17 05/01/17 05/02/17 15:59 23:59 07:59 Intake Total 1000 / 1000 360 / 360 1000 / 1000 Output Total 200 / 200 250 / 250 150 / 150 Balance 800 / 800 110 / 110 850 / 850 Weight 64.8 kg - VTE Documentation of Mechanical Device: Intermittent pneumatic compression device Consult Discharge Plan - Plan Referrals: Cecil Carter MD [Primary Care Provider] - <Magdaleno Adler - Last Filed: 05/02/17 12:13> Date of Encounter: 05/02/17 Objective PUL Vital signs: Last Vital Signs Temp 97.7 F 05/02/17 03:38 Pulse 62 05/02/17 02:56 Resp 18 05/02/17 02:56 BP 146/74 05/02/17 02:56 Pulse Ox 100 05/02/17 02:56 Results - Laboratory Findings CBC and BMP: 05/02/17 09:00 05/02/17 03:29 ABG ABG pH 7.32 pH Units (7.32-7.45) 04/30/17 04:42 ABG pCO2 46 mmHg (35-45) H 04/30/17 04:42 ABG pO2 148 mmHg (85-104) H 04/30/17 04:42 ABG O2 Saturation 99 % (95-98) H 04/30/17 04:42 PT/INR, D-dimer PT 10.5 Seconds (9.4-12.1) 04/14/17 10:25 Abnormal lab findings: Abnormal lab results WBC 4.0 K/mcL (4.3-11.1) L 05/02/17 09:00 RBC 2.55 M/mcL (4.19-5.50) L 05/02/17 09:00 Hgb 7.2 g/dL (12.9-16.9) L 05/02/17 09:00 Hct 23.1 % (37.5-50.1) L 05/02/17 09:00 MCHC 31.2 g/dL (31.6-35.5) L 05/02/17 09:00 RDW 15.5 % (11.5-14.5) H 05/02/17 09:00 Nucleated RBCs/100 WBC 0.7 /100 WBC (0) H 04/29/17 04:00 Platelet Estimate Slight Decrease (Normal) L 04/16/17 04:40 Immature Plt Fraction 6.7 % (1.1-6.1) H 04/26/17 04:00 Hypochromasia Present (Not Present) A 04/16/17 04:40 APTT 83.0 Seconds (26.0-36.0) H 04/14/17 10:25 ABG pCO2 46 mmHg (35-45) H 04/30/17 04:42 ABG pO2 148 mmHg (85-104) H 04/30/17 04:42 ABG O2 Saturation 99 % (95-98) H 04/30/17 04:42 ABG Base Excess -3 mEq/L (-2 to 3) L 04/30/17 04:42 VBG pO2 96 mmHg (25-50) H 04/28/17 03:46 Potassium 3.1 mEq/L (3.5-5.1) L 05/02/17 03:29 Chloride 117 mEq/L (98-107) H 05/02/17 03:29 Carbon Dioxide 21 mEq/L (23-29) L 05/02/17 03:29 BUN 53 mg/dL (8-23) H 05/02/17 03:29 Creatinine 4.36 mg/dL (0.70-1.30) H 05/02/17 03:29 Est GFR ( Amer) 17 (> 60) L 05/02/17 03:29 Est GFR (Non-Af Amer) 14 (> 60) L 05/02/17 03:29 Glucose 27 mg/dL (70-105) L* 05/02/17 03:29 POC Glucose 150 (58-89) H 05/01/17 23:12 Calculated Osmolality 308 (280-300) H 05/02/17 03:29 Calcium 7.8 mg/dL (8.6-10.3) L 05/02/17 03:29 Iron 55 mcg/dL (65-175) L 04/29/17 03:02 Transferrin < 75 mg/dL (203-362) L 04/29/17 03:02 Total Bilirubin 0.2 mg/dL (0.3-1.0) L 05/01/17 06:31 AST 6 Units/L (13-39) L 05/01/17 06:31 ALT < 3 Units/L (7-52) L 05/01/17 06:31 Serum Total Protein 3.7 g/dL (6.4-8.9) L 05/01/17 06:31 Albumin 1.6 g/dL (3.5-5.7) L 05/01/17 06:31 Globulin 2.1 g/dL (2.4-3.5) L 05/01/17 06:31 Albumin/Globulin Ratio 0.8 (1.1-2.2) L 05/01/17 06:31 Beta-Hydroxybutyric Acd > 2.00 mmol/L (0.02-0.27) H 04/29/17 14:45 Urine Clarity Turbid (Clear) A 04/22/17 07:30 Urine Protein 100 mg/dL (Neg-Trace) H 04/22/17 07:30 Urine Blood Large (Negative) H 04/22/17 07:30 Ur Leukocyte Esterase Large (Negative) H 04/22/17 07:30 Urine Microscopic RBC TNTC per hpf (0-3) H 04/22/17 07:30 Urine Microscopic WBC TNTC per hpf (0-3) H 04/22/17 07:30 Ur Squamous Epith Cells Many per lpf (None-Few) H 04/22/17 07:30 - Clinical Findings Intake & Output: Intake & Output 05/01/17 05/02/17 05/02/17 23:59 07:59 15:59 Intake Total 360 / 360 1000 / 1000 0 / 0 Output Total 250 / 250 150 / 150 Balance 110 / 110 850 / 850 0 / 0 Weight 64.8 kg - Attending Attestation I examined this patient and my medical decision-making was reviewed with the Resident Physician. I agree with the documented findings, disposition and treatment plan as described except to the extent set forth below. Patient seen and examined. Labs, radiology, chart personally reviewed. Agree with resident's history and physical, assessment, plan with following comments: [employer]: Patient follows commands, Pulmonary: Acceptable oxygenation and ventilation Cardiovascular: stable GI: Nutrition per dietary and GI prophylaxis per routine. Patient had PEG tube and tube feed to start Heme: DVT prophylaxis per routine ID: Continue antibiotics and plan to de-escalation Renal; urine out put and renal funtion reviewed Endorcine: blood glucose is monitored. Patient had hypoglycemia and with tube feed hopefully that will stabilize. Lines: all lines checked and no evidence of infections Skin: skin care to prevent pressure ulcers per nursing routine care Still waiting for bed on the floor.
--- NOTE | 2017-05-02 08:20 | Nephrology Progress Note ---
Date of Encounter: 05/02/17 Time of Encounter: 08:19 - Assessment and Plan (1) KARI (acute kidney injury) Current Visit: No Status: Acute The patient's serum creatinine is slightly worse today. If his renal function continues to worsen he will require initiation of dialysis while he is here in the hospital. (2) UTI (urinary tract infection) Current Visit: No Status: Chronic Qualifiers: Urinary tract infection type: acute cystitis Hematuria presence: without hematuria Qualified Code(s): N30.00 - Acute cystitis without hematuria Subjective Principal diagnosis: Sepsis, Asp PNA Interval history: The patient had a PEG tube placed yesterday. He was hypoglycemic this morning. His creatinine is slightly worse and his potassium is low. Urine output is 600 mL. He continues to be on maintenance IV fluids because of poor oral intake. Objective - Vital Signs Vital signs: Vital Signs Temp Pulse Resp BP Pulse Ox 05/02/17 03:38 97.7 F 05/02/17 02:56 62 18 146/74 100 05/01/17 23:03 97.6 F 62 18 159/69 99 05/01/17 20:00 74 05/01/17 19:14 97.9 F 05/01/17 18:00 77 17 106/59 100 05/01/17 17:00 75 16 111/50 100 05/01/17 16:00 98.5 F 76 114/55 98 05/01/17 15:00 81 119/57 88 05/01/17 14:00 80 16 134/58 92 05/01/17 13:00 78 14 120/56 93 05/01/17 12:00 70 126/60 96 05/01/17 11:00 98.6 F 72 16 130/58 96 05/01/17 10:00 70 20 132/55 94 05/01/17 09:00 68 125/55 97 Intake and Output 05/01/17 05/02/17 05/02/17 23:59 07:59 15:59 Intake Total 360 / 360 1000 / 1000 Output Total 250 / 250 150 / 150 Balance 110 / 110 850 / 850 Intake: IV Fluids 1000 / 1000 0.9 % Sodium Chloride 1,000 ML 1000 / 1000 @ 50 mls/hr IVC .Q20H [facility] Rx#: [id number] Oral 360 / 360 0 / 0 Output: Catheter 250 / 250 150 / 150 Other: Stool Size Small Stool Consistency loose liquid Stool Characteristics [place] Stool Color Brown Yellow # Bowel Movement Diapers 1 Weight 64.8 kg Blood Glucose* 279 72 - General Appearance Exam: Patient is in no acute distress. He appears chronically ill. Lungs coarse breath sounds. Heart regular rhythm. Abdomen is benign. A PEG tube is in place. There is minimal lower extremity swelling. - Lab 05/01/17 15:00 05/02/17 03:29 Most recent lab results ABG pH 7.32 pH Units (7.32-7.45) 04/30/17 04:42 ABG pCO2 46 mmHg (35-45) H 04/30/17 04:42 ABG pO2 148 mmHg (85-104) H 04/30/17 04:42 ABG HCO3 23 mEq/L (21-27) 04/30/17 04:42 ABG O2 Saturation 99 % (95-98) H 04/30/17 04:42 Calcium 7.8 mg/dL (8.6-10.3) L 05/02/17 03:29 Magnesium 2.1 mg/dL (1.6-2.6) 04/28/17 03:25 Urine Creatinine 28 mg/dL 04/25/17 16:00 Urine Sodium 99.1 mEq/L 04/25/17 16:00 - VTE Documentation of Mechanical Device: Intermittent pneumatic compression device Consult Discharge Plan - Plan Referrals: Cecil Carter MD [Primary Care Provider] -
[2017-05-02] MEDS: Pantoprazole 40 MG VIAL IVP SCH (08:47)
[2017-05-02] MEDS: Ferrous Sulfate Oral Soln 300 MG/5 ML UDC PO SCH (08:47)
[2017-05-02 09:22] LABS: Basophils # 0.1 K/mcL (0.0-0.2); Basophils % 1.3 %; Eosinophils # 0.3 K/mcL (0.0-0.6); Eosinophils % 7.1 %; Hematocrit 23.1 % (37.5-50.1); Hemoglobin 7.2 g/dL (12.9-16.9); Immature Granulocytes % 0.3 % (0-4); Lymphocytes # 1.2 K/mcL (0.6-4.6); Lymphocytes % 29.2 %; Mean Corpuscular HGB Conc 31.2 g/dL (31.6-35.5); Mean Corpuscular Hemoglobin 28.2 pg (28.0-33.3); Mean Corpuscular Volume 90.6 fL (83.0-100.0); Mean Platelet Volume 10.9 fL (9.4-12.4); Monocytes # 0.4 K/mcL (0.0-1.3); Monocytes % 9.3 %; Neutrophils # 2.1 K/mcL (1.6-8.9); Platelet Count 179 K/mcL (140-400); Red Blood Count 2.55 M/mcL (4.19-5.50); Red Cell Distribution Width 15.5 % (11.5-14.5); Segmented Neutrophils % 52.8 %
[2017-05-02] MEDS ORDERED: *HR* FentaNYL (PF) 100 MCG/2 ML VIAL IVP PRN (13:18)
[2017-05-02] MEDS ORDERED: Dextrose Gel 15 GM/37.5 ML TUBE PO PRN ×2 (13:18)
[2017-05-02] MEDS ORDERED: *HR* Dextrose 50 % in Water (Syg) 50 ML SYRINGE IVP PRN (13:18)
[2017-05-02] MEDS ORDERED: D5% in Water 1,000 ML IVC PRN (13:18)
[2017-05-02] MEDS ORDERED: Acetaminophen 325 MG TABLET PO PRN (13:18)
[2017-05-02 13:35] LABS: Magnesium 1.7 mg/dL (1.6-2.6); Phosphorous 5.2 mg/dL (2.7-4.5)
[2017-05-03] MEDS: Insulin LISPRO 300 UNITS/3 ML VIAL SQ SCH ×7 (00:54→21:10)
[2017-05-03] MEDS: *HR* Heparin 5,000 UNIT/ML VIAL SQ SCH ×2 (04:50→17:12)
[2017-05-03 07:32] LABS: Basophils % 0.9 %; Eosinophils # 0.1 K/mcL (0.0-0.6); Eosinophils % 3.1 %; Hematocrit 23.3 % (37.5-50.1); Hemoglobin 7.2 g/dL (12.9-16.9); Immature Granulocytes % 0.4 % (0-4); Lymphocytes # 0.7 K/mcL (0.6-4.6); Lymphocytes % 14.9 %; Mean Corpuscular HGB Conc 30.9 g/dL (31.6-35.5); Mean Corpuscular Hemoglobin 27.9 pg (28.0-33.3); Mean Corpuscular Volume 90.3 fL (83.0-100.0); Mean Platelet Volume 11.6 fL (9.4-12.4); Monocytes # 0.3 K/mcL (0.0-1.3); Monocytes % 5.6 %; Neutrophils # 3.4 K/mcL (1.6-8.9); Platelet Count 186 K/mcL (140-400); Red Blood Count 2.58 M/mcL (4.19-5.50); Red Cell Distribution Width 15.8 % (11.5-14.5); Segmented Neutrophils % 75.1 %
[2017-05-03] MEDS ORDERED: *HR* OxyCODONE Oral Soln 5 MG/5 ML UD.LIQ PO PRN (08:56)
[2017-05-03 08:58] LABS: Magnesium 1.7 mg/dL (1.6-2.6); Phosphorous 5.5 mg/dL (2.7-4.5)
[2017-05-03] MEDS: Ferrous Sulfate Oral Soln 300 MG/5 ML UDC PO SCH (09:13)
[2017-05-03] MEDS: Pantoprazole 40 MG VIAL IVP SCH (09:13)
--- NOTE | 2017-05-03 09:29 | Internal Med Progress Note ---
<Crispin Martin - Last Filed: 05/03/17 09:27> Date of Encounter: 05/03/17 Time of Encounter: 09:27 - Assessment and plan (1) Ikbsl-xq-zugvuee kidney injury Current Visit: Yes Status: Acute Assessment and plan: worsening. last 24 hour urine output is 300cc nephro on board and state if renal function worsens will start patient on dialysis. awaiting morning CMP still. Qualifiers: Acute renal failure type: unspecified Chronic kidney disease stage: stage 3 (moderate) Qualified Code(s): N17.9 - Acute kidney failure, unspecified; N18.3 - Chronic kidney disease, stage 3 (moderate); N18.3 - Chronic kidney disease, stage 3 (moderate) (2) Anemia Current Visit: Yes Status: Chronic Assessment and plan: hgb stable at 7.2. without tachycardia or hypotension. will transfuse if hgb<7. no signs of bleeding on exam egd on 05/01 shows normal esophagus, normal stomach and duodenum. continue iron supplementation Qualifiers: Anemia type: due to chronic kidney disease Chronic kidney disease stage: stage 5, not on chronic dialysis Qualified Code(s): N18.5 - Chronic kidney disease, stage 5; D63.1 - Anemia in chronic kidney disease; D63.1 - Anemia in chronic kidney disease (3) Respiratory failure with hypoxia Current Visit: Yes Status: Resolved Assessment and plan: stable. requiring 2L NC denies sob. Qualifiers: Chronicity: acute Qualified Code(s): J96.01 - Acute respiratory failure with hypoxia (4) C. difficile diarrhea Current Visit: Yes Status: Acute Assessment and plan: completed oral vancomycin treatment continues to have loose stools afebrile, wbc 4.5 (5) Diabetes Current Visit: Yes Status: Chronic Assessment and plan: controlled POC glucose goal 150-180 continue tube feeds Qualifiers: Diabetes mellitus type: type 2 Diabetes mellitus long term care phlebotomist insulin use: with long term care phlebotomist use Diabetes mellitus complication status: with hyperglycemia Qualified Code(s): E11.65 - Type 2 diabetes mellitus with hyperglycemia; Z79.4 - exterminator helper termite (current) use of insulin; Z79.4 - exterminator helper termite (current) use of insulin; Z79.4 - exterminator helper termite (current) use of insulin; Z79.4 - assisted (current ) use of insulin (6) Protein calorie malnutrition Current Visit: Yes Status: Acute Assessment and plan: peg placed continue tube feeds. Qualifiers: Protein-calorie malnutrition severity: unspecified severity Qualified Code( s): E46 - Unspecified protein-calorie malnutrition (7) DVT prophylaxis Current Visit: Yes Status: Acute Assessment and plan: hep sq - Subjective Interval history: Patient is awake and alert. He was eating breakfast when I entered the room. He his have large loose liquid bowel movements that are non bloody. He denies any pain. Patient did not have any acute overnight events. - Constitutional Vitals: Temp Pulse Resp BP Pulse Ox 97.4 F L 91 24 144/76 92 05/03/17 05:05 05/03/17 05:05 05/03/17 05:05 05/03/17 00:12 05/03/17 05:05 General appearance: Present: cachectic, A&O X 2, pleasant, no acute distress - Other Additional findings: General: plesant without distress Heart: Regular rate and rhythm with no murmur Lungs: Clear to auscultation bilaterally Abdomen: Soft nontender, nondistended positive bowel sounds. Has feeding tube without surrounding erythema or discharge. Skin: warm and dry Extremities: 2+ pedal edema Neuro: alert and oriented x2 Vascular: Pedal and radial pulses 2 out of 4 Internal Medicine: Result - Labs CBC & Chem 7: 05/03/17 06:30 05/02/17 03:29 Labs: Short CBC 05/03/17 Range/Units 06:30 WBC 4.5 (4.3-11.1) K/mcL Hgb 7.2 L (12.9-16.9) g/dL Hct 23.3 L (37.5-50.1) % Plt Count 186 (140-400) K/mcL Neutrophils # 3.4 (1.6-8.9) K/mcL BMP 05/02/17 03:29 Sodium 144 Potassium 3.1 L Chloride 117 H Carbon Dioxide 21 L BUN 53 H Creatinine 4.36 H Glucose 27 L* Calcium 7.8 L - ABG Interpretation ABG results: ABG ABG pH 7.32 pH Units (7.32-7.45) 04/30/17 04:42 ABG pCO2 46 mmHg (35-45) H 04/30/17 04:42 ABG pO2 148 mmHg (85-104) H 04/30/17 04:42 ABG O2 Saturation 99 % (95-98) H 04/30/17 04:42 PT/INR, D-dimer PT 10.5 Seconds (9.4-12.1) 04/14/17 10:25 - VTE Documentation of Mechanical Device: Intermittent pneumatic compression device Consult Discharge Plan - Plan Referrals: Cecil Carter MD [Primary Care Provider] - (patient will follow up with [facility]) <Tanner Steward H - Last Filed: 05/03/17 12:42> Date of Encounter: 05/03/17 - Assessment and plan (1) Acute metabolic encephalopathy Current Visit: Yes Status: Resolved (2) Urinary tract infection Current Visit: No Status: Resolved Qualifiers: Urinary tract infection type: site unspecified Hematuria presence: with hematuria Qualified Code(s): N39.0 - Urinary tract infection, site not specified; R31.9 - Hematuria, unspecified (3) C. difficile diarrhea Current Visit: Yes Status: Acute (4) MRSA pneumonia Current Visit: Yes Status: Acute Qualifiers: Laterality: bilateral Lung location: unspecified part of lung Qualified Code(s): J15.212 - Pneumonia due to Methicillin resistant Staphylococcus aureus (5) Respiratory failure with hypoxia Current Visit: Yes Status: Resolved Qualifiers: Chronicity: acute Qualified Code(s): J96.01 - Acute respiratory failure with hypoxia (6) Septic shock Current Visit: Yes Status: Resolved (7) Btjxr-ex-ksaeeqm kidney injury Current Visit: Yes Status: Acute Qualifiers: Acute renal failure type: unspecified Chronic kidney disease stage: stage 3 (moderate) Qualified Code(s): N17.9 - Acute kidney failure, unspecified; N18.3 - Chronic kidney disease, stage 3 (moderate); N18.3 - Chronic kidney disease, stage 3 (moderate) (8) Physical deconditioning Current Visit: No Status: Acute (9) CKD (chronic kidney disease) stage 3, GFR 30-59 ml/min Current Visit: No Status: Chronic (10) Cerebrovascular accident involving cerebellum Current Visit: No Status: Chronic (11) DM (diabetes mellitus), type 2 Current Visit: No Status: Chronic Qualifiers: Diabetes mellitus long term care phlebotomist insulin use: with long term care phlebotomist use Diabetes mellitus complication status: with hypoglycemia Diabetes mellitus complication detail: without coma Qualified Code(s): E11.649 - Type 2 diabetes mellitus with hypoglycemia without coma; Z79.4 - assisted (current) use of insulin (12) Acidosis, metabolic, with respiratory acidosis Current Visit: Yes Status: Resolved (13) Anemia Current Visit: Yes Status: Chronic Qualifiers: Anemia type: due to chronic kidney disease Chronic kidney disease stage: stage 5, not on chronic dialysis Qualified Code(s): N18.5 - Chronic kidney disease, stage 5; D63.1 - Anemia in chronic kidney disease; D63.1 - Anemia in chronic kidney disease - Constitutional Vitals: Temp Pulse Resp BP Pulse Ox 98.5 F 86 17 127/76 99 05/03/17 11:35 05/03/17 11:20 05/03/17 11:35 05/03/17 11:35 05/03/17 11:35 Internal Medicine: Result - Labs CBC & Chem 7: 05/03/17 06:30 05/02/17 03:29 Labs: Short CBC 05/03/17 Range/Units 06:30 WBC 4.5 (4.3-11.1) K/mcL Hgb 7.2 L (12.9-16.9) g/dL Hct 23.3 L (37.5-50.1) % Plt Count 186 (140-400) K/mcL Neutrophils # 3.4 (1.6-8.9) K/mcL - ABG Interpretation ABG results: ABG ABG pH 7.32 pH Units (7.32-7.45) 04/30/17 04:42 ABG pCO2 46 mmHg (35-45) H 04/30/17 04:42 ABG pO2 148 mmHg (85-104) H 04/30/17 04:42 ABG O2 Saturation 99 % (95-98) H 04/30/17 04:42 PT/INR, D-dimer PT 10.5 Seconds (9.4-12.1) 04/14/17 10:25 - Attending Attestation Acute metabolic encephalopathy caused by septic shock due to MRSA pneumonia and Proteus UTI, worsened by C. difficile colitis competed IV and oral vancomycin, zosyn, Rocephin UTI Anu tropicalies, was on fluconazole KARI on CKD stage III, now stage 4 severe deconditioning, has PEG tube I examined this patient and my medical decision-making was reviewed with the Resident Physician. I agree with the documented findings, disposition and treatment plan as described except to the extent set forth below. .
--- NOTE | 2017-05-03 10:04 | Nephrology Progress Note ---
Date of Encounter: 05/03/17 Time of Encounter: 09:50 - Assessment and Plan (1) Gouyx-zz-mwpapev kidney injury Current Visit: Yes Status: Acute Today labs pending. Consideration being given for starting on chronic HD. Documented urine output 300cc. Will continue to monitor, avoid nephrotoxins, I&O 's. Qualifiers: Acute renal failure type: unspecified Chronic kidney disease stage: stage 3 (moderate) Qualified Code(s): N17.9 - Acute kidney failure, unspecified; N18.3 - Chronic kidney disease, stage 3 (moderate); N18.3 - Chronic kidney disease, stage 3 (moderate) (2) KARI (acute kidney injury) Current Visit: No Status: Acute (3) Recurrent UTI (urinary tract infection) Current Visit: No Status: Acute Subjective Principal diagnosis: Sepsis, Asp PNA Interval history: Awake, conversing well, appropriate. States wants to go back to nursing facility. Objective - Vital Signs Vital signs: Vital Signs Temp Pulse Resp BP Pulse Ox 05/03/17 05:05 97.4 F L 91 24 92 05/03/17 00:12 98.1 F 75 16 144/76 94 05/02/17 20:45 93.5 F L 68 16 92/56 98 05/02/17 18:37 96.7 F L 05/02/17 16:59 52 18 104/55 97 05/02/17 16:12 52 18 104/55 97 05/02/17 12:00 96.2 F L 54 16 155/80 100 Intake and Output 05/02/17 05/03/17 05/03/17 23:59 07:59 15:59 Intake Total 0 / 0 Output Total 0 / 0 Balance 0 / 0 Intake: Oral 0 / 0 Output: Catheter 0 / 0 Other: Meal Breakfast Percent of Meal Consumed 0% Stool Size Moderate Large Stool Consistency loose loose liquid liquid # Bowel Movement Diapers 1 1 Weight 64.4 kg 66.678 kg Blood Glucose* 210 132 185 Patient Weight 05/03/17 23:59 Weight 66.678 kg - General Appearance General appearance: Present: chronically ill, frail EENT: Present: mucous membranes moist Neck: Present: no JVD Respiratory: Present: clear Cardiology: Present: no edema, regular rate, regular rhythm Gastrointestinal: Present: normoactive bowel sounds, no tenderness Additional Comments: PEG Integumentary: Present: warm and dry Psychiatric: Present: mood/affect appropriate, cooperative - Lab 05/03/17 06:30 05/02/17 03:29 Most recent lab results ABG pH 7.32 pH Units (7.32-7.45) 04/30/17 04:42 ABG pCO2 46 mmHg (35-45) H 04/30/17 04:42 ABG pO2 148 mmHg (85-104) H 04/30/17 04:42 ABG HCO3 23 mEq/L (21-27) 04/30/17 04:42 ABG O2 Saturation 99 % (95-98) H 04/30/17 04:42 Calcium 7.8 mg/dL (8.6-10.3) L 05/02/17 03:29 Phosphorus 5.5 mg/dL (2.7-4.5) H 05/03/17 05:51 Magnesium 1.7 mg/dL (1.6-2.6) 05/03/17 05:51 Urine Creatinine 28 mg/dL 04/25/17 16:00 Urine Sodium 99.1 mEq/L 04/25/17 16:00 - VTE Documentation of Mechanical Device: Intermittent pneumatic compression device Consult Discharge Plan - Plan Referrals: Cecil Carter MD [Primary Care Provider] -
[2017-05-03] MEDS ORDERED: 0.9 % Sodium Chloride 250 ML ONE (11:14)
[2017-05-03] MEDS: 0.9 % Sodium Chloride 1,000 ML IVC SCH (12:26)
[2017-05-03 15:43] LABS: INR 1.2; Prothrombin Time 12.9 Seconds (9.4-12.1)
[2017-05-03 16:12] LABS: Alanine Aminotransferase < 3 Units/L (7-52); Albumin 1.9 g/dL (3.5-5.7); Albumin/Globulin Ratio 0.7 (1.1-2.2); Alkaline Phosphatase 84 Units/L (34-104); Aspartate Amino Transferase 7 Units/L (13-39); BUN/Creatinine Ratio 11 (6-26); Bilirubin,Total 0.2 mg/dL (0.3-1.0); Blood Urea Nitrogen 52 mg/dL (8-23); Calcium 7.5 mg/dL (8.6-10.3); Carbon Dioxide 19 mEq/L (23-29); Chloride 117 mEq/L (98-107); Globulin 2.6 g/dL (2.4-3.5); Glucose 210 mg/dL (70-105); Osmolality,Calculated 322 (280-300); Potassium 3.3 mEq/L (3.5-5.1); Sodium 146 mEq/L (136-145); Total Protein 4.5 g/dL (6.4-8.9); eGFR For African Americans 16 (> 60); eGFR For Non-African Americans 13 (> 60)
[2017-05-04] MEDS: Insulin LISPRO 300 UNITS/3 ML VIAL SQ SCH ×6 (01:21→22:23)
[2017-05-04 03:41] LABS: Calcium 7.6 mg/dL (8.6-10.3); Potassium 3.8 mEq/L (3.5-5.1)
[2017-05-04] MEDS: *HR* Heparin 5,000 UNIT/ML VIAL SQ SCH ×2 (04:54→18:25)
[2017-05-04 05:11] LABS: Basophils # 0.1 K/mcL (0.0-0.2); Basophils % 0.9 %; Eosinophils # 0.1 K/mcL (0.0-0.6); Eosinophils % 2.6 %; Hematocrit 27.7 % (37.5-50.1); Hemoglobin 8.7 g/dL (12.9-16.9); Immature Granulocytes % 0.7 % (0-4); Lymphocytes # 0.8 K/mcL (0.6-4.6); Lymphocytes % 14.3 %; Mean Corpuscular HGB Conc 31.4 g/dL (31.6-35.5); Mean Corpuscular Volume 89.1 fL (83.0-100.0); Mean Platelet Volume 11.3 fL (9.4-12.4); Monocytes # 0.5 K/mcL (0.0-1.3); Monocytes % 9.1 %; Platelet Count 198 K/mcL (140-400); Red Blood Count 3.11 M/mcL (4.19-5.50); Segmented Neutrophils % 72.4 %
[2017-05-04] MEDS ORDERED: Furosemide Oral Soln 40 MG/4 ML UDC PO SCH (09:00)
--- NOTE | 2017-05-04 09:39 | Nephrology Progress Note ---
Date of Encounter: 05/04/17 Time of Encounter: 09:20 - Assessment and Plan (1) Ahbgt-sq-zloxkbs kidney injury Current Visit: Yes Status: Acute Renal fct plateued/stable. Creat 4.71, GFR 13. K+ 3.8. No immedieate need for HD. Consideration being given for starting on chronic HD. Documented urine output 150cc. Will continue to monitor, avoid nephrotoxins, I&O's. Qualifiers: Acute renal failure type: unspecified Chronic kidney disease stage: stage 3 (moderate) Qualified Code(s): N17.9 - Acute kidney failure, unspecified; N18.3 - Chronic kidney disease, stage 3 (moderate); N18.3 - Chronic kidney disease, stage 3 (moderate) (2) KARI (acute kidney injury) Current Visit: No Status: Acute (3) Recurrent UTI (urinary tract infection) Current Visit: No Status: Acute Subjective Principal diagnosis: Sepsis, Asp PNA Interval history: Arouses easily, states okay. No new complaints. Continuous tube feeds at 50cc/ hr. Objective - Vital Signs Vital signs: Vital Signs Temp Pulse Resp BP Pulse Ox 05/04/17 07:19 98.5 F 75 15 193/33 93 05/04/17 04:20 97.7 F 64 14 155/89 95 05/03/17 23:55 97.7 F 66 14 178/95 95 05/03/17 19:18 98.1 F 70 16 160/78 95 05/03/17 15:02 98.7 F 73 23 149/80 98 05/03/17 11:37 98.1 F 16 136/77 97 05/03/17 11:35 98.5 F 17 127/76 99 05/03/17 11:20 100.0 F H 86 16 130/72 94 05/03/17 11:02 98.7 F 86 18 133/73 95 Intake and Output 05/03/17 05/04/17 05/04/17 23:59 07:59 15:59 Intake Total 523 / 523 1450 / 1450 Output Total 250 / 250 Balance 523 / 523 1200 / 1200 Intake: Oral 240 / 240 1450 / 1450 Tube Feeding 283 / 283 Output: Urine 250 / 250 Other: Stool Size Large Moderate Stool Consistency liquid liquid Stool Color Yellow Yellow # Bowel Movement Diapers 1 1 Blood Glucose* 143 143 - General Appearance General appearance: Present: chronically ill, frail EENT: Present: mucous membranes moist Neck: Present: no JVD Respiratory: Present: clear Cardiology: Present: no edema, regular rate, regular rhythm Gastrointestinal: Present: normoactive bowel sounds, no tenderness Integumentary: Present: warm and dry Psychiatric: Present: mood/affect appropriate, cooperative - Lab 05/04/17 03:45 05/04/17 02:47 Most recent lab results ABG pH 7.32 pH Units (7.32-7.45) 04/30/17 04:42 ABG pCO2 46 mmHg (35-45) H 04/30/17 04:42 ABG pO2 148 mmHg (85-104) H 04/30/17 04:42 ABG HCO3 23 mEq/L (21-27) 04/30/17 04:42 ABG O2 Saturation 99 % (95-98) H 04/30/17 04:42 Calcium 7.6 mg/dL (8.6-10.3) L 05/04/17 02:47 Phosphorus 5.5 mg/dL (2.7-4.5) H 05/03/17 05:51 Magnesium 1.7 mg/dL (1.6-2.6) 05/03/17 05:51 Urine Creatinine 28 mg/dL 04/25/17 16:00 Urine Sodium 99.1 mEq/L 04/25/17 16:00 - VTE Documentation of Mechanical Device: Intermittent pneumatic compression device Consult Discharge Plan - Plan Referrals: Cecil Carter MD [Primary Care Provider] - (patient will follow up with [facility])
[2017-05-04] MEDS: Ferrous Sulfate Oral Soln 300 MG/5 ML UDC PO SCH (10:00)
[2017-05-04] MEDS: Pantoprazole 40 MG VIAL IVP SCH (10:00)
--- NOTE | 2017-05-04 10:21 | Internal Med Progress Note ---
<Crispin Martin - Last Filed: 05/04/17 10:18> Date of Encounter: 05/04/17 Time of Encounter: 10:18 - Assessment and plan (1) Rjzgx-ft-pqcpjvg kidney injury Current Visit: Yes Status: Acute Assessment and plan: GFR 13 today last 24 hour urine output is 150cc nephro on board and report to hold on dialysis and continue monitoring renal function fluid overloaded will start bumex 1mg BID. continue potassium Qualifiers: Acute renal failure type: unspecified Chronic kidney disease stage: stage 3 (moderate) Qualified Code(s): N17.9 - Acute kidney failure, unspecified; N18.3 - Chronic kidney disease, stage 3 (moderate); N18.3 - Chronic kidney disease, stage 3 (moderate) (2) Anemia Current Visit: Yes Status: Chronic Assessment and plan: hgb 8.7 after 1 unit PBRC transfused. no signs of bleeding on exam egd on 05/01 shows normal esophagus, normal stomach and duodenum. continue iron supplementation Qualifiers: Anemia type: due to chronic kidney disease Chronic kidney disease stage: stage 5, not on chronic dialysis Qualified Code(s): N18.5 - Chronic kidney disease, stage 5; D63.1 - Anemia in chronic kidney disease; D63.1 - Anemia in chronic kidney disease (3) Respiratory failure with hypoxia Current Visit: Yes Status: Resolved Assessment and plan: stable. requiring 3L NC denies sob. Qualifiers: Chronicity: acute Qualified Code(s): J96.01 - Acute respiratory failure with hypoxia (4) C. difficile diarrhea Current Visit: Yes Status: Acute Assessment and plan: completed oral vancomycin treatment continues to have liquid stools decreasing in frequency (5) Diabetes Current Visit: Yes Status: Chronic Qualifiers: Diabetes mellitus type: type 2 Diabetes mellitus retirement insulin use: with retirement use Diabetes mellitus complication status: with hyperglycemia Qualified Code(s): E11.65 - Type 2 diabetes mellitus with hyperglycemia; Z79.4 - correction (current) use of insulin; Z79.4 - ocean transportation intermediary (current) use of insulin; Z79.4 - correction (current) use of insulin; Z79.4 - correction (current ) use of insulin (6) Protein calorie malnutrition Current Visit: Yes Status: Acute Assessment and plan: continue tube feeds Qualifiers: Protein-calorie malnutrition severity: unspecified severity Qualified Code( s): E46 - Unspecified protein-calorie malnutrition (7) DVT prophylaxis Current Visit: Yes Status: Acute Assessment and plan: heparin sq - Subjective Interval history: No acute events overnight. Patient has no complaints. Denies headache, chest pain, abdominal pain, N/V. He continues to have liquid bowel movements. - Constitutional Vitals: Temp Pulse Resp BP Pulse Ox 98.5 F 75 15 193/33 93 05/04/17 07:19 05/04/17 07:19 05/04/17 07:19 05/04/17 07:19 05/04/17 07:19 General appearance: Present: cachectic, A&O X 2, pleasant, no acute distress - Other Additional findings: General: plesant without distress Heart: Regular rate and rhythm with no murmur Lungs: Clear to auscultation bilaterally Abdomen: Soft nontender, nondistended positive bowel sounds. Has feeding tube without surrounding erythema or discharge. Skin: warm and dry Extremities: 2+ pedal edema Neuro: alert and oriented x2 Vascular: Pedal and radial pulses 2 out of 4 Internal Medicine: Result - Labs CBC & Chem 7: 05/04/17 03:45 05/04/17 02:47 Labs: Short CBC 05/04/17 Range/Units 03:45 WBC 5.5 (4.3-11.1) K/mcL Hgb 8.7 L D (12.9-16.9) g/dL Hct 27.7 L (37.5-50.1) % Plt Count 198 (140-400) K/mcL Neutrophils # 4.0 (1.6-8.9) K/mcL BMP 05/03/17 05/04/17 15:04 02:47 Sodium 146 H 145 Potassium 3.3 L 3.8 Chloride 117 H 119 H Carbon Dioxide 19 L 18 L BUN 52 H 55 H Creatinine 4.61 H 4.71 H Glucose 210 H 81 Calcium 7.5 L 7.6 L Liver Function 05/03/17 Range/Units 15:04 Total Bilirubin 0.2 L (0.3-1.0) mg/dL AST 7 L (13-39) Units/L ALT < 3 L (7-52) Units/L Alkaline Phosphatase 84 (34-104) Units/L Albumin 1.9 L (3.5-5.7) g/dL - ABG Interpretation ABG results: ABG ABG pH 7.32 pH Units (7.32-7.45) 04/30/17 04:42 ABG pCO2 46 mmHg (35-45) H 04/30/17 04:42 ABG pO2 148 mmHg (85-104) H 04/30/17 04:42 ABG O2 Saturation 99 % (95-98) H 04/30/17 04:42 PT/INR, D-dimer PT 12.9 Seconds (9.4-12.1) H 05/03/17 15:04 - VTE Documentation of Mechanical Device: Intermittent pneumatic compression device Consult Discharge Plan - Plan Referrals: Cecil Carter MD [Primary Care Provider] - (patient will follow up with f pcp) <Tanner Steward H - Last Filed: 05/04/17 15:32> Date of Encounter: 05/04/17 - Assessment and plan (1) Acute metabolic encephalopathy Current Visit: Yes Status: Resolved (2) Urinary tract infection Current Visit: No Status: Resolved Qualifiers: Urinary tract infection type: site unspecified Hematuria presence: with hematuria Qualified Code(s): N39.0 - Urinary tract infection, site not specified; R31.9 - Hematuria, unspecified (3) C. difficile diarrhea Current Visit: Yes Status: Acute (4) MRSA pneumonia Current Visit: Yes Status: Acute Qualifiers: Laterality: bilateral Lung location: unspecified part of lung Qualified Code(s): J15.212 - Pneumonia due to Methicillin resistant Staphylococcus aureus (5) Respiratory failure with hypoxia Current Visit: Yes Status: Resolved Qualifiers: Chronicity: acute Qualified Code(s): J96.01 - Acute respiratory failure with hypoxia (6) Septic shock Current Visit: Yes Status: Resolved (7) Lebqh-tv-aqqpbci kidney injury Current Visit: Yes Status: Acute Qualifiers: Acute renal failure type: unspecified Chronic kidney disease stage: stage 3 (moderate) Qualified Code(s): N17.9 - Acute kidney failure, unspecified; N18.3 - Chronic kidney disease, stage 3 (moderate); N18.3 - Chronic kidney disease, stage 3 (moderate) (8) Physical deconditioning Current Visit: No Status: Acute (9) CKD (chronic kidney disease) stage 3, GFR 30-59 ml/min Current Visit: No Status: Chronic (10) Cerebrovascular accident involving cerebellum Current Visit: No Status: Chronic (11) DM (diabetes mellitus), type 2 Current Visit: No Status: Chronic Qualifiers: Diabetes mellitus termite control servicer insulin use: with termite control servicer use Diabetes mellitus complication status: with hypoglycemia Diabetes mellitus complication detail: without coma Qualified Code(s): E11.649 - Type 2 diabetes mellitus with hypoglycemia without coma; Z79.4 - ocean transportation intermediary (current) use of insulin (12) Acidosis, metabolic, with respiratory acidosis Current Visit: Yes Status: Resolved (13) Anemia Current Visit: Yes Status: Chronic Qualifiers: Anemia type: due to chronic kidney disease Chronic kidney disease stage: stage 5, not on chronic dialysis Qualified Code(s): N18.5 - Chronic kidney disease, stage 5; D63.1 - Anemia in chronic kidney disease; D63.1 - Anemia in chronic kidney disease - Constitutional Vitals: Temp Pulse Resp BP Pulse Ox 94.6 F L 59 16 179/82 100 05/04/17 11:15 05/04/17 11:15 05/04/17 11:15 05/04/17 11:15 05/04/17 11:15 Internal Medicine: Result - Labs CBC & Chem 7: 05/04/17 03:45 05/04/17 02:47 Labs: Short CBC 05/04/17 Range/Units 03:45 WBC 5.5 (4.3-11.1) K/mcL Hgb 8.7 L D (12.9-16.9) g/dL Hct 27.7 L (37.5-50.1) % Plt Count 198 (140-400) K/mcL Neutrophils # 4.0 (1.6-8.9) K/mcL BMP 05/03/17 05/04/17 15:04 02:47 Sodium 146 H 145 Potassium 3.3 L 3.8 Chloride 117 H 119 H Carbon Dioxide 19 L 18 L BUN 52 H 55 H Creatinine 4.61 H 4.71 H Glucose 210 H 81 Calcium 7.5 L 7.6 L Liver Function 05/03/17 Range/Units 15:04 Total Bilirubin 0.2 L (0.3-1.0) mg/dL AST 7 L (13-39) Units/L ALT < 3 L (7-52) Units/L Alkaline Phosphatase 84 (34-104) Units/L Albumin 1.9 L (3.5-5.7) g/dL - ABG Interpretation ABG results: ABG ABG pH 7.32 pH Units (7.32-7.45) 04/30/17 04:42 ABG pCO2 46 mmHg (35-45) H 04/30/17 04:42 ABG pO2 148 mmHg (85-104) H 04/30/17 04:42 ABG O2 Saturation 99 % (95-98) H 04/30/17 04:42 PT/INR, D-dimer PT 12.9 Seconds (9.4-12.1) H 05/03/17 15:04 - Attending Attestation Acute metabolic encephalopathy caused by septic shock due to MRSA pneumonia and Proteus UTI, worsened by C. difficile colitis competed IV and oral vancomycin, zosyn, Rocephin UTI Anu tropicalies, was on fluconazole KARI on CKD stage III, now stage 4, nephrology considering HD severe deconditioning, has PEG tube I examined this patient and my medical decision-making was reviewed with the Resident Physician. I agree with the documented findings, disposition and treatment plan as described except to the extent set forth below. .
[2017-05-04 10:39] LABS: Hepatitis B Surface Antibody 1.01 mIU/mL; Hepatitis B Surface Antigen Nonreactive (Nonreactive)
[2017-05-04] MEDS: Bumetanide 1 MG TABLET PO SCH (18:25)
[2017-05-05] MEDS: Insulin LISPRO 300 UNITS/3 ML VIAL SQ SCH ×5 (01:42→21:33)
[2017-05-05] MEDS: *HR* Heparin 5,000 UNIT/ML VIAL SQ SCH ×2 (05:22→16:46)
[2017-05-05 05:33] LABS: Basophils % 0.5 %; Eosinophils # 0.3 K/mcL (0.0-0.6); Eosinophils % 7.5 %; Hematocrit 25.8 % (37.5-50.1); Hemoglobin 8.3 g/dL (12.9-16.9); Immature Granulocytes % 1.1 % (0-4); Lymphocytes # 0.7 K/mcL (0.6-4.6); Lymphocytes % 18.9 %; Mean Corpuscular HGB Conc 32.2 g/dL (31.6-35.5); Mean Corpuscular Hemoglobin 28.1 pg (28.0-33.3); Mean Corpuscular Volume 87.5 fL (83.0-100.0); Mean Platelet Volume 11.3 fL (9.4-12.4); Monocytes # 0.4 K/mcL (0.0-1.3); Neutrophils # 2.3 K/mcL (1.6-8.9); Platelet Count 188 K/mcL (140-400); Red Blood Count 2.95 M/mcL (4.19-5.50)
[2017-05-05 06:47] LABS: Calcium 7.4 mg/dL (8.6-10.3); Potassium 3.4 mEq/L (3.5-5.1)
--- NOTE | 2017-05-05 08:59 | Nephrology Progress Note ---
Date of Encounter: 05/05/17 Time of Encounter: 08:45 - Assessment and Plan (1) Cttnw-rg-gwkzpsr kidney injury Current Visit: Yes Status: Acute Renal fct plateued/stable. Creat 4.43, GFR 13. K+ 3.8. Fliuid OL, noted Bumex po. No immedieate need for HD. Consideration being given for starting on chronic HD. Documented urine output 250cc. Will continue to monitor, avoid nephrotoxins, I&O's. Qualifiers: Acute renal failure type: unspecified Chronic kidney disease stage: stage 3 (moderate) Qualified Code(s): N17.9 - Acute kidney failure, unspecified; N18.3 - Chronic kidney disease, stage 3 (moderate); N18.3 - Chronic kidney disease, stage 3 (moderate) (2) KARI (acute kidney injury) Current Visit: No Status: Acute (3) Recurrent UTI (urinary tract infection) Current Visit: No Status: Acute Subjective Principal diagnosis: Sepsis, Asp PNA Interval history: Arouses easily, states okay. No new complaints. Continuous tube feeds at 50cc/ hr. Objective - Vital Signs Vital signs: Vital Signs Temp Pulse Resp BP Pulse Ox 05/05/17 07:40 96.4 F L 05/05/17 07:13 72 18 164/89 96 05/05/17 05:16 98 F 79 16 120/75 95 05/04/17 23:50 98 F 70 17 160/80 95 05/04/17 20:33 97.9 F 65 19 154/77 94 05/04/17 16:07 73 16 168/96 95 05/04/17 11:15 94.6 F L 59 16 179/82 100 Intake and Output 05/04/17 05/05/17 05/05/17 23:59 07:59 15:59 Other: Stool Size Moderate Stool Consistency soft Stool Color Brown # Voids 1 # Bowel Movements 1 # Bowel Movement Diapers 1 1 Weight 66.7 kg Blood Glucose* 193 205 Patient Weight 05/05/17 23:59 Weight 66.7 kg - General Appearance General appearance: Present: chronically ill, frail EENT: Present: mucous membranes moist Neck: Present: no JVD Respiratory: Present: wheezing Cardiology: Present: edema, regular rate, regular rhythm Additional Comments: 2-3 pitting edema Gastrointestinal: Present: normoactive bowel sounds, no tenderness Integumentary: Present: warm and dry Psychiatric: Present: mood/affect appropriate, cooperative - Lab 05/05/17 04:17 05/05/17 04:17 Most recent lab results ABG pH 7.32 pH Units (7.32-7.45) 04/30/17 04:42 ABG pCO2 46 mmHg (35-45) H 04/30/17 04:42 ABG pO2 148 mmHg (85-104) H 04/30/17 04:42 ABG HCO3 23 mEq/L (21-27) 04/30/17 04:42 ABG O2 Saturation 99 % (95-98) H 04/30/17 04:42 Calcium 7.4 mg/dL (8.6-10.3) L 05/05/17 04:17 Phosphorus 5.5 mg/dL (2.7-4.5) H 05/03/17 05:51 Magnesium 1.7 mg/dL (1.6-2.6) 05/03/17 05:51 Urine Creatinine 28 mg/dL 04/25/17 16:00 Urine Sodium 99.1 mEq/L 04/25/17 16:00 - VTE Documentation of Mechanical Device: Intermittent pneumatic compression device Consult Discharge Plan - Plan Referrals: Cecil Carter MD [Primary Care Provider] - (patient will follow up with [facility])
--- NOTE | 2017-05-05 09:02 | Internal Med Progress Note ---
Date of Encounter: 05/05/17 Time of Encounter: 08:59 - Assessment and plan (1) Aukai-sq-epdhvsk kidney injury Current Visit: Yes Status: Acute Assessment and plan: stable urine output 250/24 hr possibly start HD on sunday as per nephro continue bumex strict I/OS Qualifiers: Acute renal failure type: unspecified Chronic kidney disease stage: stage 3 (moderate) Qualified Code(s): N17.9 - Acute kidney failure, unspecified; N18.3 - Chronic kidney disease, stage 3 (moderate); N18.3 - Chronic kidney disease, stage 3 (moderate) (2) Anemia Current Visit: Yes Status: Chronic Assessment and plan: stable will transfuse if hgb<7. no signs of bleeding on exam egd on 05/01 shows normal esophagus, normal stomach and duodenum. continue iron supplementation Qualifiers: Anemia type: due to chronic kidney disease Chronic kidney disease stage: stage 5, not on chronic dialysis Qualified Code(s): N18.5 - Chronic kidney disease, stage 5; D63.1 - Anemia in chronic kidney disease; D63.1 - Anemia in chronic kidney disease (3) Respiratory failure with hypoxia Current Visit: Yes Status: Resolved Assessment and plan: stable. requiring 3L NC denies sob. Qualifiers: Chronicity: acute Qualified Code(s): J96.01 - Acute respiratory failure with hypoxia (4) C. difficile diarrhea Current Visit: Yes Status: Acute Assessment and plan: completed oral vancomycin treatment stools more formed and less frequent (5) Diabetes Current Visit: Yes Status: Chronic Assessment and plan: controlled POC glucose goal 150-180 continue tube feeds Qualifiers: Diabetes mellitus type: type 2 Diabetes mellitus residential insulin use: with residential use Diabetes mellitus complication status: with hyperglycemia Qualified Code(s): E11.65 - Type 2 diabetes mellitus with hyperglycemia; Z79.4 - long term care social worker (current) use of insulin; Z79.4 - halfway (current) use of insulin; Z79.4 - halfway (current) use of insulin; Z79.4 - long term care social worker (current ) use of insulin (6) Protein calorie malnutrition Current Visit: Yes Status: Acute Assessment and plan: peg placed continue tube feeds. Qualifiers: Protein-calorie malnutrition severity: unspecified severity Qualified Code( s): E46 - Unspecified protein-calorie malnutrition (7) DVT prophylaxis Current Visit: Yes Status: Acute Assessment and plan: hep sq - Subjective Interval history: No acute events overnight. Patient has no complaints. Denies headache, chest pain, abdominal pain, N/V. Bowel movement more formed this morning. - Constitutional Vitals: Temp Pulse Resp BP Pulse Ox 96.4 F L 72 18 164/89 96 05/05/17 07:40 05/05/17 07:13 05/05/17 07:13 05/05/17 07:13 05/05/17 07:13 General appearance: Present: cachectic, A&O X 2, pleasant, no acute distress - Other Additional findings: General: pleasant without distress Heart: Regular rate and rhythm with no murmur Lungs: Clear to auscultation bilaterally Abdomen: Soft nontender, nondistended positive bowel sounds. Has feeding tube without surrounding erythema or discharge. Skin: warm and dry Extremities: 2+ pedal edema Neuro: alert and oriented x2 Vascular: Pedal and radial pulses 2 out of 4 Internal Medicine: Result - Labs CBC & Chem 7: 05/05/17 04:17 05/05/17 04:17 Labs: Short CBC 05/05/17 Range/Units 04:17 WBC 3.7 L (4.3-11.1) K/mcL Hgb 8.3 L (12.9-16.9) g/dL Hct 25.8 L (37.5-50.1) % Plt Count 188 (140-400) K/mcL Neutrophils # 2.3 (1.6-8.9) K/mcL BMP 05/05/17 04:17 Sodium 139 Potassium 3.4 L Chloride 113 H Carbon Dioxide 20 L BUN 58 H Creatinine 4.43 H Glucose 235 H Calcium 7.4 L - ABG Interpretation ABG results: ABG ABG pH 7.32 pH Units (7.32-7.45) 04/30/17 04:42 ABG pCO2 46 mmHg (35-45) H 04/30/17 04:42 ABG pO2 148 mmHg (85-104) H 04/30/17 04:42 ABG O2 Saturation 99 % (95-98) H 04/30/17 04:42 PT/INR, D-dimer PT 12.9 Seconds (9.4-12.1) H 05/03/17 15:04 - VTE Documentation of Mechanical Device: Intermittent pneumatic compression device Consult Discharge Plan - Plan Referrals: Cecil Carter MD [Primary Care Provider] - (patient will follow up with [facility])
[2017-05-05] MEDS: Ferrous Sulfate Oral Soln 300 MG/5 ML UDC PO SCH (09:17)
[2017-05-05] MEDS: Pantoprazole 40 MG VIAL IVP SCH (09:17)
[2017-05-05] MEDS: Bumetanide 1 MG TABLET PO SCH ×2 (09:18→16:46)
[2017-05-06] MEDS: Insulin LISPRO 300 UNITS/3 ML VIAL SQ SCH ×7 (00:22→20:37)
[2017-05-06 03:31] LABS: Basophils % 0.9 %; Eosinophils # 0.2 K/mcL (0.0-0.6); Hematocrit 24.7 % (37.5-50.1); Hemoglobin 7.8 g/dL (12.9-16.9); Immature Granulocytes % 1.4 % (0-4); Lymphocytes % 22.1 %; Mean Corpuscular HGB Conc 31.6 g/dL (31.6-35.5); Mean Corpuscular Hemoglobin 27.9 pg (28.0-33.3); Mean Corpuscular Volume 88.2 fL (83.0-100.0); Mean Platelet Volume 11.1 fL (9.4-12.4); Monocytes # 0.5 K/mcL (0.0-1.3); Neutrophils # 2.6 K/mcL (1.6-8.9); Platelet Count 221 K/mcL (140-400); Red Cell Distribution Width 15.9 % (11.5-14.5); Segmented Neutrophils % 59.6 %
[2017-05-06 03:58] LABS: Calcium 7.3 mg/dL (8.6-10.3); Potassium 3.5 mEq/L (3.5-5.1)
[2017-05-06] MEDS: *HR* Heparin 5,000 UNIT/ML VIAL SQ SCH ×2 (06:46→19:37)
--- NOTE | 2017-05-06 06:57 | Event Note ---
Date of Encounter: 05/06/17 Time of Encounter: 06:30 Per RN pt was found nonresponsive to stimulation this morning. Rapid respond was called. I went to bedside immediately and when I arrive pt is AAOx3, looks in no acute distress. Blood surgar and vitals checked, unremarkable. Per RN pt has no seizure activity, no tongue bite, no fecal incontinence. Examine pt reveals generally equal strength b/l, no facial drop, no slurred speech. Per RN pt was not given any sedative/narcotics over night. Reviewed tele stripe with RN and no significant arrhythmia identified. Nonresponsive, etiology undetemined. Pt recovered to baseline now. Will check CT head stat, echo, and duplex carotid. Cont closely monitor pt.
[2017-05-06] MEDS ORDERED: Ipratropium/Albuterol Neb 3 ML IH PRN (07:03)
--- NOTE | 2017-05-06 07:52 | Nephrology Progress Note ---
Date of Encounter: 05/06/17 Time of Encounter: 07:30 - Assessment and Plan (1) Liawk-ms-nyxpksz kidney injury Current Visit: Yes Status: Acute Renal fct plateued/stable. Creat 4.44, GFR 13. K+ 3.5. Fluid OL, No immediate need for HD. Consideration being given for starting on chronic HD. No documented urine output, approx 200cc noted in bag. Will continue to monitor, avoid nephrotoxins, I&O's. Qualifiers: Acute renal failure type: unspecified Chronic kidney disease stage: stage 3 (moderate) Qualified Code(s): N17.9 - Acute kidney failure, unspecified; N18.3 - Chronic kidney disease, stage 3 (moderate); N18.3 - Chronic kidney disease, stage 3 (moderate) (2) KARI (acute kidney injury) Current Visit: No Status: Acute (3) Recurrent UTI (urinary tract infection) Current Visit: No Status: Acute Subjective Principal diagnosis: Sepsis, Asp PNA Interval history: Awake, asking for coffee. No new complaints. Continuous tube feeds at 50cc/hr. Objective - Vital Signs Vital signs: Vital Signs Temp Pulse Resp BP Pulse Ox 05/06/17 06:30 98.4 F 84 17 182/90 97 05/06/17 03:44 99.3 F 95 16 134/75 94 05/05/17 23:53 97.7 F 80 16 176/86 93 05/05/17 20:14 99.2 F 87 16 151/79 92 05/05/17 20:04 99.2 F 87 16 151/79 92 05/05/17 15:46 98.2 F 79 16 159/84 93 05/05/17 11:54 97.6 F 67 18 149/80 97 05/05/17 10:09 97.6 F Intake and Output 05/05/17 05/05/17 05/06/17 15:59 23:59 07:59 Intake Total 100 / 100 100 / 100 100 / 100 Balance 100 / 100 100 / 100 100 / 100 Intake: Free Water 100 / 100 Free Water Intake Amount 100 / 100 100 / 100 Other: Meal Breakfast Percent of Meal Consumed 0% Stool Size Small Stool Consistency soft Stool Color Brown # Bowel Movement Diapers 1 Weight 64.9 kg Blood Glucose* 105 108 210 Patient Weight 05/06/17 23:59 Weight 64.9 kg - General Appearance General appearance: Present: chronically ill, frail EENT: Present: mucous membranes moist Neck: Present: no JVD Respiratory: Present: wheezing Cardiology: Present: edema, regular rate, regular rhythm Additional Comments: 2-3+ mainly thighs, buttock Gastrointestinal: Present: normoactive bowel sounds, no tenderness Integumentary: Present: warm and dry Psychiatric: Present: mood/affect appropriate, cooperative - Lab 05/06/17 03:09 05/06/17 03:09 Most recent lab results ABG pH 7.32 pH Units (7.32-7.45) 04/30/17 04:42 ABG pCO2 46 mmHg (35-45) H 04/30/17 04:42 ABG pO2 148 mmHg (85-104) H 04/30/17 04:42 ABG HCO3 23 mEq/L (21-27) 04/30/17 04:42 ABG O2 Saturation 99 % (95-98) H 04/30/17 04:42 Calcium 7.3 mg/dL (8.6-10.3) L 05/06/17 03:09 Phosphorus 5.5 mg/dL (2.7-4.5) H 05/03/17 05:51 Magnesium 1.7 mg/dL (1.6-2.6) 05/03/17 05:51 Urine Creatinine 28 mg/dL 04/25/17 16:00 Urine Sodium 99.1 mEq/L 04/25/17 16:00 - VTE Documentation of Mechanical Device: Intermittent pneumatic compression device Consult Discharge Plan - Plan Referrals: Cecil Carter MD [Primary Care Provider] - (patient will follow up with [facility])
[2017-05-06] MEDS: Ferrous Sulfate Oral Soln 300 MG/5 ML UDC PO SCH (08:54)
[2017-05-06] MEDS: Bumetanide 1 MG TABLET PO SCH ×2 (08:54→16:00)
[2017-05-06] MEDS: Pantoprazole 40 MG VIAL IVP SCH (08:59)
--- NOTE | 2017-05-06 13:37 | Internal Med Progress Note ---
<Crispin Martin - Last Filed: 05/06/17 13:39> Date of Encounter: 05/06/17 Time of Encounter: 13:35 - Assessment and plan (1) Tvznd-ye-lychwzt kidney injury Current Visit: Yes Status: Acute Assessment and plan: stable urine output 200cc/24 hr possibly start HD on sunday as per nephro continue bumex strict I/OS Qualifiers: Acute renal failure type: unspecified Chronic kidney disease stage: stage 3 (moderate) Qualified Code(s): N17.9 - Acute kidney failure, unspecified; N18.3 - Chronic kidney disease, stage 3 (moderate); N18.3 - Chronic kidney disease, stage 3 (moderate) (2) Anemia Current Visit: Yes Status: Chronic Assessment and plan: stable will transfuse if hgb<7. no signs of bleeding on exam egd on 05/01 shows normal esophagus, normal stomach and duodenum. continue iron supplementation Qualifiers: Anemia type: due to chronic kidney disease Chronic kidney disease stage: stage 5, not on chronic dialysis Qualified Code(s): N18.5 - Chronic kidney disease, stage 5; D63.1 - Anemia in chronic kidney disease; D63.1 - Anemia in chronic kidney disease (3) Respiratory failure with hypoxia Current Visit: Yes Status: Resolved Assessment and plan: stable. requiring 3L NC denies sob. Qualifiers: Chronicity: acute Qualified Code(s): J96.01 - Acute respiratory failure with hypoxia (4) C. difficile diarrhea Current Visit: Yes Status: Acute Assessment and plan: completed oral vancomycin treatment stools more formed (5) Diabetes Current Visit: Yes Status: Chronic Assessment and plan: controlled POC glucose goal 150-180 continue tube feeds Qualifiers: Diabetes mellitus type: type 2 Diabetes mellitus group home insulin use: with group home use Diabetes mellitus complication status: with hyperglycemia Qualified Code(s): E11.65 - Type 2 diabetes mellitus with hyperglycemia; Z79.4 - [facility] (current) use of insulin; Z79.4 - dispatcher automobile rental (current) use of insulin; Z79.4 - [facility] (current) use of insulin; Z79.4 - [facility] (current ) use of insulin (6) Protein calorie malnutrition Current Visit: Yes Status: Acute Assessment and plan: peg placed continue tube feeds. Qualifiers: Protein-calorie malnutrition severity: unspecified severity Qualified Code( s): E46 - Unspecified protein-calorie malnutrition (7) DVT prophylaxis Current Visit: Yes Status: Acute Assessment and plan: hep sq - Subjective Interval history: Last night rapid was called due to pateint not waking up. However once overnight physician reached the room patient was awake and alert. This morning he is awake and alert and answering questions. CT head negative. He has not complaints. - Constitutional Vitals: Temp Pulse Resp BP Pulse Ox 97.7 F 69 17 147/70 95 05/06/17 10:58 05/06/17 10:58 05/06/17 10:58 05/06/17 10:58 05/06/17 10:58 General appearance: Present: cachectic, A&O X 2, pleasant, no acute distress - Other Additional findings: General: pleasant without distress Heart: Regular rate and rhythm with no murmur Lungs: Clear to auscultation bilaterally Abdomen: Soft nontender, nondistended positive bowel sounds. Has feeding tube without surrounding erythema or discharge. Skin: warm and dry Extremities: 2+ pedal edema Neuro: alert and oriented x2 Vascular: Pedal and radial pulses 2 out of 4 Internal Medicine: Result - Labs CBC & Chem 7: 05/06/17 03:09 05/06/17 03:09 Labs: Short CBC 05/06/17 Range/Units 03:09 WBC 4.4 (4.3-11.1) K/mcL Hgb 7.8 L (12.9-16.9) g/dL Hct 24.7 L (37.5-50.1) % Plt Count 221 (140-400) K/mcL Neutrophils # 2.6 (1.6-8.9) K/mcL BMP 05/06/17 03:09 Sodium 140 Potassium 3.5 Chloride 112 H Carbon Dioxide 20 L BUN 61 H Creatinine 4.44 H Glucose 200 H Calcium 7.3 L - ABG Interpretation ABG results: ABG ABG pH 7.32 pH Units (7.32-7.45) 04/30/17 04:42 ABG pCO2 46 mmHg (35-45) H 04/30/17 04:42 ABG pO2 148 mmHg (85-104) H 04/30/17 04:42 ABG O2 Saturation 99 % (95-98) H 04/30/17 04:42 PT/INR, D-dimer PT 12.9 Seconds (9.4-12.1) H 05/03/17 15:04 - Impressions Impressions Head CT 05/06/17 06:41 IMPRESSION: No acute intracranial abnormality. D/ / Brock To MD / Brock To MD Interpreting Provider: Brock To MD - VTE Documentation of Mechanical Device: Intermittent pneumatic compression device Consult Discharge Plan - Plan Referrals: Cecil Carter MD [Primary Care Provider] - (patient will follow up with [facility]) <Katarzyna Minor - Last Filed: 05/06/17 14:34> Date of Encounter: 05/06/17 Time of Encounter: 09:10 - Assessment and plan (1) Mycdx-yh-hkezths kidney injury Current Visit: Yes Status: Acute Qualifiers: Acute renal failure type: unspecified Chronic kidney disease stage: stage 3 (moderate) Qualified Code(s): N17.9 - Acute kidney failure, unspecified; N18.3 - Chronic kidney disease, stage 3 (moderate); N18.3 - Chronic kidney disease, stage 3 (moderate) (2) Essential hypertension Current Visit: Yes Status: Chronic (3) Anemia Current Visit: Yes Status: Chronic Qualifiers: Anemia type: due to chronic kidney disease Chronic kidney disease stage: stage 5, not on chronic dialysis Qualified Code(s): N18.5 - Chronic kidney disease, stage 5; D63.1 - Anemia in chronic kidney disease; D63.1 - Anemia in chronic kidney disease (4) C. difficile diarrhea Current Visit: Yes Status: Acute (5) Diabetes Current Visit: Yes Status: Chronic Qualifiers: Diabetes mellitus type: type 2 Diabetes mellitus group home insulin use: with group home use Diabetes mellitus complication status: with hyperglycemia Qualified Code(s): E11.65 - Type 2 diabetes mellitus with hyperglycemia; Z79.4 - [facility] (current) use of insulin; Z79.4 - dispatcher automobile rental (current) use of insulin; Z79.4 - dispatcher automobile rental (current) use of insulin; Z79.4 - [facility] (current ) use of insulin (6) DVT prophylaxis Current Visit: Yes Status: Acute (7) Protein calorie malnutrition Current Visit: Yes Status: Acute Qualifiers: Protein-calorie malnutrition severity: unspecified severity Qualified Code( s): E46 - Unspecified protein-calorie malnutrition (8) Respiratory failure with hypoxia Current Visit: Yes Status: Resolved Qualifiers: Chronicity: acute Qualified Code(s): J96.01 - Acute respiratory failure with hypoxia - Constitutional Vitals: Temp Pulse Resp BP Pulse Ox 97.7 F 69 17 147/70 95 05/06/17 10:58 05/06/17 10:58 05/06/17 10:58 05/06/17 10:58 05/06/17 10:58 Internal Medicine: Result - Labs CBC & Chem 7: 05/06/17 03:09 05/06/17 03:09 Labs: Short CBC 05/06/17 Range/Units 03:09 WBC 4.4 (4.3-11.1) K/mcL Hgb 7.8 L (12.9-16.9) g/dL Hct 24.7 L (37.5-50.1) % Plt Count 221 (140-400) K/mcL Neutrophils # 2.6 (1.6-8.9) K/mcL BMP 05/06/17 03:09 Sodium 140 Potassium 3.5 Chloride 112 H Carbon Dioxide 20 L BUN 61 H Creatinine 4.44 H Glucose 200 H Calcium 7.3 L - ABG Interpretation ABG results: ABG ABG pH 7.32 pH Units (7.32-7.45) 04/30/17 04:42 ABG pCO2 46 mmHg (35-45) H 04/30/17 04:42 ABG pO2 148 mmHg (85-104) H 04/30/17 04:42 ABG O2 Saturation 99 % (95-98) H 04/30/17 04:42 PT/INR, D-dimer PT 12.9 Seconds (9.4-12.1) H 05/03/17 15:04 - Impressions Impressions Head CT 05/06/17 06:41 IMPRESSION: No acute intracranial abnormality. D/ / Brock To MD / Brock To MD Interpreting Provider: Brock To MD - Attending Attestation I examined this patient and my medical decision-making was reviewed with the Resident Physician, Crispin Martin. I agree with the documented findings, disposition and treatment plan as described with any changes as documented below. Patient is now awake and alert. Answers questions appropriately. Earlier today he had been excessively somnolent and rapid response was called as he did not respond to sternal rub. He recovered immediately spontaneously and has denied any complaints since then. CT scan of the head was done which did not show any acute process. Renal function remained stable. Nephrology following. Considering possibly starting hemodialysis. Continue tube feeds. Continue Bumex 1 mg by mouth twice daily. Blood pressure elevated today. Patient is on hydralazine IV as needed. We will add amlodipine to control blood pressure better. Blood sugars are intermittently elevated. Continue low-dose correctional sliding scale insulin. Completed treatment for C. difficile colitis with oral vancomycin.
[2017-05-06] MEDS: amLODIPine 5 MG TABLET PO SCH (15:54)
[2017-05-07] MEDS: Insulin LISPRO 300 UNITS/3 ML VIAL SQ SCH ×6 (00:53→20:37)
[2017-05-07 04:16] LABS: Basophils # 0.1 K/mcL (0.0-0.2); Basophils % 1.1 %; Eosinophils # 0.3 K/mcL (0.0-0.6); Hematocrit 25.4 % (37.5-50.1); Lymphocytes # 0.9 K/mcL (0.6-4.6); Lymphocytes % 20.4 %; Mean Corpuscular HGB Conc 31.5 g/dL (31.6-35.5); Mean Corpuscular Hemoglobin 27.7 pg (28.0-33.3); Mean Corpuscular Volume 87.9 fL (83.0-100.0); Mean Platelet Volume 11.1 fL (9.4-12.4); Monocytes # 0.5 K/mcL (0.0-1.3); Monocytes % 10.5 %; Neutrophils # 2.7 K/mcL (1.6-8.9); Platelet Count 284 K/mcL (140-400); Red Blood Count 2.89 M/mcL (4.19-5.50)
[2017-05-07 04:42] LABS: Calcium 7.6 mg/dL (8.6-10.3); Potassium 3.6 mEq/L (3.5-5.1)
[2017-05-07] MEDS: *HR* Heparin 5,000 UNIT/ML VIAL SQ SCH ×2 (05:25→16:37)
--- NOTE | 2017-05-07 08:05 | Nephrology Progress Note ---
Date of Encounter: 05/07/17 Time of Encounter: 07:40 - Assessment and Plan (1) Djavj-yf-kvdcedw kidney injury Current Visit: Yes Status: Acute Renal fct plateued/stable. Creat 4.44, GFR 13. K+ 3.5. Fluid OL. Documented urine output 100cc. Will place tunneled catheter today, followed by HD. Will arrange for chronic HD at outside facility-[facility]. Qualifiers: Acute renal failure type: unspecified Chronic kidney disease stage: stage 3 (moderate) Qualified Code(s): N17.9 - Acute kidney failure, unspecified; N18.3 - Chronic kidney disease, stage 3 (moderate); N18.3 - Chronic kidney disease, stage 3 (moderate) (2) KARI (acute kidney injury) Current Visit: No Status: Acute (3) Recurrent UTI (urinary tract infection) Current Visit: No Status: Acute Subjective Principal diagnosis: Sepsis, Asp PNA Interval history: Awake, oriented person and place. web applications architect in room. Discussed at length no renal recovery and need for chronic HD and tunneled catheter placement. Patient asked appropriate questions with return answers given. Verbalized understanding. Patient states wants to go ahead with HD catheter placement , followed by HD today. Patient asking to be sent back to nursing facility afterward. Objective - Vital Signs Vital signs: Vital Signs Temp Pulse Resp BP Pulse Ox 05/07/17 07:10 97.6 F 64 15 153/77 96 05/07/17 06:17 149/70 05/07/17 03:48 97.6 F 81 15 177/95 96 05/07/17 00:55 95 05/06/17 23:19 97.6 F 79 17 149/73 95 05/06/17 19:51 97.5 F L 82 16 159/77 93 05/06/17 16:40 97.9 F 72 16 167/82 98 05/06/17 10:58 97.7 F 69 17 147/70 95 Intake and Output 05/06/17 05/07/17 05/07/17 23:59 07:59 15:59 Intake Total 300 / 300 Output Total 0 / 0 Balance 300 / 300 Intake: Free Water Intake Amount 300 / 300 Output: Urine 0 / 0 Other: # Urine Diapers 3 Weight 66 kg Blood Glucose* 165 199 Patient Weight 05/07/17 23:59 Weight 66 kg - General Appearance General appearance: Present: chronically ill, frail EENT: Present: mucous membranes moist Neck: Present: no JVD Respiratory: Present: wheezing Cardiology: Present: edema, regular rate, regular rhythm Additional Comments: depenent 2-3+ Gastrointestinal: Present: normoactive bowel sounds, no tenderness Integumentary: Present: warm and dry Psychiatric: Present: mood/affect appropriate, cooperative - Lab 05/07/17 03:33 05/07/17 03:33 Most recent lab results ABG pH 7.32 pH Units (7.32-7.45) 04/30/17 04:42 ABG pCO2 46 mmHg (35-45) H 04/30/17 04:42 ABG pO2 148 mmHg (85-104) H 04/30/17 04:42 ABG HCO3 23 mEq/L (21-27) 04/30/17 04:42 ABG O2 Saturation 99 % (95-98) H 04/30/17 04:42 Calcium 7.6 mg/dL (8.6-10.3) L 05/07/17 03:33 Phosphorus 5.5 mg/dL (2.7-4.5) H 05/03/17 05:51 Magnesium 1.7 mg/dL (1.6-2.6) 05/03/17 05:51 Urine Creatinine 28 mg/dL 04/25/17 16:00 Urine Sodium 99.1 mEq/L 04/25/17 16:00 - VTE Documentation of Mechanical Device: Intermittent pneumatic compression device Consult Discharge Plan - Plan Referrals: Cecil Carter MD [Primary Care Provider] - (patient will follow up with [facility] p[facility])
--- NOTE | 2017-05-07 09:00 | Discharge Summary ---
<Crispin Martin - Last Filed: 05/07/17 13:06> Orders not resulted at time of discharge: Pending orders 05/07/17 IR cvc insrt tunnel wo prt/salvationist [IR] Routine IR us guide needle place [IR] Routine Date of Encounter: 05/07/17 Time of Encounter: 08:54 - Discharge Diagnosis (1) Respiratory failure with hypoxia Priority: Primary Status: Resolved Qualifiers: Chronicity: acute Qualified Code(s): J96.01 - Acute respiratory failure with hypoxia (2) Qhfsv-qq-jthqyzg kidney injury Priority: Secondary Status: Acute Qualifiers: Acute renal failure type: unspecified Chronic kidney disease stage: stage 3 (moderate) Qualified Code(s): N17.9 - Acute kidney failure, unspecified; N18.3 - Chronic kidney disease, stage 3 (moderate); N18.3 - Chronic kidney disease, stage 3 (moderate) (3) Anemia Priority: Secondary Status: Chronic Qualifiers: Anemia type: due to chronic kidney disease Chronic kidney disease stage: stage 5, not on chronic dialysis Qualified Code(s): N18.5 - Chronic kidney disease, stage 5; D63.1 - Anemia in chronic kidney disease; D63.1 - Anemia in chronic kidney disease (4) C. difficile diarrhea Priority: Secondary Status: Acute (5) Diabetes Priority: Secondary Status: Chronic Qualifiers: Diabetes mellitus type: type 2 Diabetes mellitus group home insulin use: with terminal gauger supervisor use Diabetes mellitus complication status: with hyperglycemia Qualified Code(s): E11.65 - Type 2 diabetes mellitus with hyperglycemia; Z79.4 - manager terminal (current) use of insulin; Z79.4 - manager terminal (current) use of insulin; Z79.4 - manager terminal (current) use of insulin; Z79.4 - nursing home (current ) use of insulin (6) Protein calorie malnutrition Priority: Secondary Status: Acute Qualifiers: Protein-calorie malnutrition severity: unspecified severity Qualified Code( s): E46 - Unspecified protein-calorie malnutrition (7) DVT prophylaxis Priority: Secondary Status: Acute (8) UTI (urinary tract infection) Priority: Secondary Status: Acute Qualifiers: Urinary tract infection type: site unspecified Hematuria presence: with hematuria Qualified Code(s): N39.0 - Urinary tract infection, site not specified; R31.9 - Hematuria, unspecified; R31.9 - Hematuria, unspecified (9) MRSA pneumonia Priority: Secondary Status: Acute Qualifiers: Laterality: bilateral Lung location: unspecified part of lung Qualified Code(s): J15.212 - Pneumonia due to Methicillin resistant Staphylococcus aureus Hospital course: Mr. Neal is a 61 year old male presented on 04/14/17, hypotension, respiratory distress. He was found to have septic shock, KARI, acute referring failure with hypoxia, metabolic acidosis with respiratory acidosis transferred to ICU, given IV fluids and placed on vasopressors and intubated. Blood cultures urine cultures, sputum cultures were sent. Urine culture was positive for Proteus mirabilis. Patient has chornic indwelling olivares 2nd to urinary retention Blood cultures were negative for growth. Sputum culture was positive for MRSA and Proteus mirabilis. Patient was treated with IV antibiotics based on sensitivities. He was extuabted on 04/16. Patient was trasnferred out of ICU on 04/18/2017. Nephrology was consulted for acute on chronic renal failure and initially patients renal function improved and GFR remained 14 with increased urine output . Palliative was consulted to assess code status and patient was deemed full code. Patient also wanted PEG tube placed for protein calorie malnutrition. On 04/20/17 patient developed bloody diarrhea and tested positive for Cdiff. He was placed on PO vancomycin. On 04/22/17 patient became confused and had weakness with lethargy. CT head and MRI was negative for acute changes. Neurology evaluated pateint and ruled out neurological cause. Patient developed acute anemia 2nd to GI bleed and required total 4 transfusions [facility]. Ct abdomen/ pelvis showed no evidence of bleeding. 04/24/2017 rapid response was called as patient developed acute respiratory failure and was intubated. This was determined to be 2nd to acute CHF exacerbation and aspiration pna. He was started on zosyn. GI was consulted 04/25/2017, EGD was negative for bleeding and PEG tube was placed. He was extubated 04/28/2017. ON 04/29/2017 patient developed hypotension and had a central line placed and restarted on vasopressors. Patient was stablaized and weaned off of vasopressors and discharged on to the floor 05/01/2017. Then on his renal function did not improve and his urine output decreased. Nephrology today order placement of tunneled HD Cather and patient will receive first HD today and be discharged to LTC ([facility]). Nephrology group has obtained a dialysis bed for him outpatient. Patient has completed all his antibiotics during his stay. He is not being d/c with any new prescriptions. - Time Spent with Patient Total time spent providing and/or coordinating discharge services: - Discharge Medications Home Medications: Cyclosporine [Restasis] 1 drop BOTH EYES BID 11/28/16 [History] Insulin LISPRO [HumaLOG] 0 unit SQ AD 11/28/16 [History] Loratadine [Allergy Relief] 10 mg PO DAILY PRN 11/28/16 [History] Sucralfate [Carafate] 1 gm PO TID #1 bottle 12/03/16 [Rx] DULoxetine [Cymbalta] 30 mg PO DAILY 02/15/17 [History] hydrALAZINE [HydrALAZINE] 25 mg PO Q8HR #90 tablet 03/29/17 [Rx] Amlodipine Besylate 10 mg PO DAILY 04/14/17 [History] Erythromycin OPTH Oint 1 appl OP HS 04/14/17 [History] Glucagon,Human Recombinant [Glucagen] 1 mg IM Q30MIN PRN 04/14/17 [History] Mirtazapine [Remeron] 30 mg PO HS 04/14/17 [History] Omeprazole [PriLOSEC] 40 mg PO BID 04/14/17 [History] Polyvinyl Alcohol [Artificial Tears] 1 drop BOTH EYES TID 04/14/17 [History] Bumetanide [Bumex] 1 mg PO BIDDIURETIC tablet 05/07/17 [Rx] Ferrous Sulfate Oral Soln 300 mg PO DAILY udc 05/07/17 [Rx] Ipratropium/Albuterol Neb [Duoneb] 3 ml IH Q4HR PRN inhsol 05/07/17 [Rx] Potassium Chloride 10 meq PO DAILY #0 tab.er.prt 05/07/17 [Rx] Allergies/Adverse Reactions: 3 Allergy/AdvReac Type Severity Reaction Status Date / Time aspirin Allergy Rash Verified 02/15/17 02:44 pseudoephedrine Allergy Rash Verified 02/15/17 02:44 [From Sudafed] morphine AdvReac See Verified 04/14/17 11:30 Comments Date of admission: 04/14/17 13:16 Primary care physician: Cecil Carter MD Consults: 04/16/17 10:28 Consult to Invasive Line Access Team [CONS] Routine Reason for Consult: limited access Line Type: EPIV Time Notified: 10:29 Call Completed: Yes 04/19/17 11:12 Consult to Occupational Therapy [CONS] Routine Comment: Evaluate, develop and implement POC Reason for Consult: eval Consult to Physical Therapy [CONS] Routine Comment: Evaluate, develop and implement POC Reason for Consult: eval Consult to Audio Visual Manager [CONS] Routine Reason for SW Consult: eval 04/20/17 08:11 Consult to Palliative Care [CONS] Routine Comment: Consulting Provider: [facility] Reason for Consult: Declines PEG, chronic hospital stays sepsis/UTI, malnurished Time Notified: 08:12 Call Completed: Yes 04/21/17 06:10 Consult to Wound Care [CONS] Stat Reason for Consult: patient has multiple deep tissue injury wounds Call Completed: Yes 04/22/17 08:27 Consult to Neurology [CONS] Routine Consulting Provider: [facility] Reason for Consult: cva Call Completed: No 04/24/17 21:40 Consult to Pulmonology [CONS] Routine Consulting Provider: [facility]m [facility] Reason for Consult: Acute respiratory failure concerning for aspiration Call Completed: No 04/30/17 11:46 Consult to Gastroenterology [CONS] Routine Consulting Provider: Gastroenter[facility] Reason for Consult: PEG tube placement; patient previously declined, but now desires. Time Notified: 14:36 Call Completed: Yes 05/02/17 07:29 Consult to Nutrition [CONS] Routine Comment: Consulting Provider: NUTRITION Reason for Dietary Consult: Tube Feed Start & Manage 05/07/17 07:59 Consult to Interventional Radiology [CONS] Routine Consulting Provider: Radiology Interventional [facility] Reason for Consult: Tunneled cath-KARI, no renal recov-ESRD Time Notified: 08:00 Call Completed: Yes Discharging clinician: Crispin Martin Anticipated date of discharge: 05/07/17 - Constitutional Vitals: Temp Pulse Resp BP Pulse Ox 97.6 F 64 15 153/77 96 05/07/17 07:10 05/07/17 07:10 05/07/17 07:10 05/07/17 07:10 05/07/17 07:10 General appearance: Present: cachectic, A&O X 2, pleasant, no acute distress - Other Additional findings: General: pleasant without distress Heart: Regular rate and rhythm with no murmur Lungs: Clear to auscultation bilaterally Abdomen: Soft nontender, nondistended positive bowel sounds. Has feeding tube without surrounding erythema or discharge. Skin: warm and dry Extremities: 1+ pedal edema Neuro: alert and oriented x2 Vascular: Pedal and radial pulses 2 out of 4 - Patient Status Disposition: Transfer SNF Condition: Fair Functional capacity at discharge: bed bound Overall status at discharge: patient is progressing back to baseline - Discharge Instructions Follow Up With: Cecil Carter MD [Primary Care Provider] - (patient will follow up with [facility] pcp) Forms: ED Satisfaction Letter - Diet and Activity Activity: as per physical therapy, wear oxygen at all times (3L) Diet: other (advanced soft diet chopped meat and Jevity 1.5 @ 50 ml/hr ) - VTE Documentation of Mechanical Device: Intermittent pneumatic compression device <Tanner Steward H - Last Filed: 05/07/17 17:19> Date of Encounter: 05/07/17 - Discharge Diagnosis (1) Acute metabolic encephalopathy Status: Resolved (2) Urinary tract infection Status: Resolved Qualifiers: Urinary tract infection type: site unspecified Hematuria presence: with hematuria Qualified Code(s): N39.0 - Urinary tract infection, site not specified; R31.9 - Hematuria, unspecified (3) C. difficile diarrhea Status: Acute (4) MRSA pneumonia Status: Acute Qualifiers: Laterality: bilateral Lung location: unspecified part of lung Qualified Code(s): J15.212 - Pneumonia due to Methicillin resistant Staphylococcus aureus (5) Respiratory failure with hypoxia Status: Resolved Qualifiers: Chronicity: acute Qualified Code(s): J96.01 - Acute respiratory failure with hypoxia (6) Septic shock Status: Resolved (7) Vdkhw-vb-mbabnuy kidney injury Status: Acute Qualifiers: Acute renal failure type: unspecified Chronic kidney disease stage: stage 3 (moderate) Qualified Code(s): N17.9 - Acute kidney failure, unspecified; N18.3 - Chronic kidney disease, stage 3 (moderate); N18.3 - Chronic kidney disease, stage 3 (moderate) (8) Physical deconditioning Status: Acute (9) CKD (chronic kidney disease) stage 3, GFR 30-59 ml/min Status: Chronic (10) 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 (11) DM (diabetes mellitus), type 2 Status: Chronic Qualifiers: Diabetes mellitus terminal gauger supervisor insulin use: with terminal gauger supervisor use Diabetes mellitus complication status: with hypoglycemia Diabetes mellitus complication detail: without coma Qualified Code(s): E11.649 - Type 2 diabetes mellitus with hypoglycemia without coma; Z79.4 - nursing home (current) use of insulin (12) Acidosis, metabolic, with respiratory acidosis Status: Resolved (13) Anemia Status: Chronic Qualifiers: Anemia type: due to chronic kidney disease Chronic kidney disease stage: stage 5, not on chronic dialysis Qualified Code(s): N18.5 - Chronic kidney disease, stage 5; D63.1 - Anemia in chronic kidney disease; D63.1 - Anemia in chronic kidney disease Hospital course: Mr. Neal is a 61 year old male - Time Spent with Patient Total time spent providing and/or coordinating discharge services: Date of admission: 04/14/17 13:16 Primary care physician: Cecil Carter MD Consults: 04/16/17 10:28 Consult to Invasive Line Access Team [CONS] Routine Reason for Consult: limited access Line Type: EPIV Time Notified: 10:29 Call Completed: Yes 04/19/17 11:12 Consult to Occupational Therapy [CONS] Routine Comment: Evaluate, develop and implement POC Reason for Consult: eval Consult to Physical Therapy [CONS] Routine Comment: Evaluate, develop and implement POC Reason for Consult: eval Consult to Audio Visual Manager [CONS] Routine Reason for SW Consult: eval 04/20/17 08:11 Consult to Palliative Care [CONS] Routine Comment: Consulting Provider: [facility] Reason for Consult: Declines PEG, chronic hospital stays sepsis/UTI, malnurished Time Notified: 08:12 Call Completed: Yes 04/21/17 06:10 Consult to Wound Care [CONS] Stat Reason for Consult: patient has multiple deep tissue injury wounds Call Completed: Yes 04/22/17 08:27 Consult to Neurology [CONS] Routine Consulting Provider: Neurology [facility] Reason for Consult: cva Call Completed: No 04/24/17 21:40 Consult to Pulmonology [CONS] Routine Consulting Provider: Pulm [facility] Reason for Consult: Acute respiratory failure concerning for aspiration Call Completed: No 04/30/17 11:46 Consult to Gastroenterology [CONS] Routine Consulting Provider: [facility] Reason for Consult: PEG tube placement; patient previously declined, but now desires. Time Notified: 14:36 Call Completed: Yes 05/02/17 07:29 Consult to Nutrition [CONS] Routine Comment: Consulting Provider: NUTRITION Reason for Dietary Consult: Tube Feed Start & Manage 05/07/17 07:59 Consult to Interventional Radiology [CONS] Routine Consulting Provider: Radiology Interventional Cols Reason for Consult: Tunneled cath-KARI, no renal recov-ESRD Time Notified: 08:00 Call Completed: Yes 05/07/17 12:00 Consult to Dialysis [CONS] ONCE - Constitutional Vitals: Temp Pulse Resp BP Pulse Ox 97.7 F 67 16 159/75 97 05/07/17 15:50 05/07/17 15:50 05/07/17 15:50 05/07/17 15:50 05/07/17 15:50 - Attending Attestation Acute metabolic encephalopathy caused by septic shock due to MRSA pneumonia and Proteus UTI, worsened by C. difficile colitis competed IV and oral vancomycin, zosyn, Rocephin UTI Anu tropicalies, was on fluconazole KARI on CKD stage III, now stage 4, nephrology considering HD severe deconditioning, has PEG tube Nephrology started dialyses Time spent 40 minutes I examined this patient and my medical decision-making was reviewed with the Resident Physician. I agree with the documented findings, disposition and treatment plan as described except to the extent set forth below. .
[2017-05-07] MEDS: Pantoprazole 40 MG VIAL IVP SCH (09:05)
[2017-05-07] MEDS: Ferrous Sulfate Oral Soln 300 MG/5 ML UDC PO SCH (09:05)
[2017-05-07] MEDS: amLODIPine 5 MG TABLET PO SCH (09:05)
[2017-05-07] MEDS: Bumetanide 1 MG TABLET PO SCH ×2 (09:05→20:36)
--- NOTE | 2017-05-07 09:05 | Physician Discharge Referral ---
<Crispin Martin - Last Filed: 05/07/17 09:05> ExtendedCare Referral Info Transfer To: [facility] Provider in Charge: Thelma Provider in Charge after Transfer: PCP Institutional Level of Care: Skilled - Diagnosis (1) Respiratory failure with hypoxia Priority: Primary Status: Resolved (2) Dgkge-jz-afmhnku kidney injury Priority: Secondary Status: Acute (3) Anemia Priority: Secondary Status: Chronic (4) C. difficile diarrhea Priority: Secondary Status: Acute (5) Diabetes Priority: Secondary Status: Chronic (6) Protein calorie malnutrition Priority: Secondary Status: Acute (7) DVT prophylaxis Priority: Secondary Status: Acute (8) UTI (urinary tract infection) Priority: Secondary Status: Acute (9) MRSA pneumonia Priority: Secondary Status: Acute Prognosis: Fair Aware of Diagnosis: Patient - Transfer Medications Home Medications: Cyclosporine [Restasis] 1 drop BOTH EYES BID 11/28/16 [History] Insulin LISPRO [HumaLOG] 0 unit SQ AD 11/28/16 [History] Loratadine [Allergy Relief] 10 mg PO DAILY PRN 11/28/16 [History] Sucralfate [Carafate] 1 gm PO TID #1 bottle 12/03/16 [Rx] DULoxetine [Cymbalta] 30 mg PO DAILY 02/15/17 [History] hydrALAZINE [HydrALAZINE] 25 mg PO Q8HR #90 tablet 03/29/17 [Rx] Amlodipine Besylate 10 mg PO DAILY 04/14/17 [History] Erythromycin OPTH Oint 1 appl OP HS 04/14/17 [History] Glucagon,Human Recombinant [Glucagen] 1 mg IM Q30MIN PRN 04/14/17 [History] Mirtazapine [Remeron] 30 mg PO HS 04/14/17 [History] Omeprazole [PriLOSEC] 40 mg PO BID 04/14/17 [History] Polyvinyl Alcohol [Artificial Tears] 1 drop BOTH EYES TID 04/14/17 [History] Bumetanide [Bumex] 1 mg PO BIDDIURETIC tablet 05/07/17 [Rx] Ferrous Sulfate Oral Soln 300 mg PO DAILY udc 05/07/17 [Rx] Ipratropium/Albuterol Neb [Duoneb] 3 ml IH Q4HR PRN inhsol 05/07/17 [Rx] Potassium Chloride 10 meq PO DAILY #0 tab.er.prt 05/07/17 [Rx] Allergies/Adverse Reactions: 3 Allergy/AdvReac Type Severity Reaction Status Date / Time aspirin Allergy Rash Verified 02/15/17 02:44 pseudoephedrine Allergy Rash Verified 02/15/17 02:44 [From Sudafed] morphine AdvReac See Verified 04/14/17 11:30 Comments - Respiratory Orders Oxygen / L per min (3L) Smoking Cessation: Smoking cessation has been advised. For more information, call the [facility] Line at 4-460-OIKTNOW. - Ancillary Orders May use pressure relief devices daily prn - Advance Directives Code Status: Full Code - Mobility Orders Bedrest - Rehabiliation Orders Rehab Potential: Poor - Treatments Skin tear care topically daily PRN per policy, May check for fecal impaction rectally daily PRN - Diet Orders Mechanical Soft Tube Feedings (type/amount/rate): Jevity 1.5 @ 50 ml/hr CERTIFICATION: I certify that the transfer of the above named patient to an Extended Care Facility is necessary for the continuing treatment of the diagnosis listed. The above information is true and accurate reflection of patient's current condition. Confidential - Redisclosure prohibited without a patient's written consent. <Tanner Steward H - Last Filed: 05/07/17 17:19> - Diagnosis (1) Acute metabolic encephalopathy Status: Resolved (2) Urinary tract infection Status: Resolved (3) C. 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 For more information, call the [facility] Line at [phone]-BJY. CERTIFICATION: I certify that the transfer of the above named patient to an Extended Care Facility is necessary for the continuing treatment of the diagnosis listed. The above information is true and accurate reflection of patient's current condition. Confidential - Redisclosure prohibited without a patient's written consent.
[2017-05-07] MEDS ORDERED: *HR* Heparin 10,000 UNIT/10 ML VIAL IV PRN (11:58)
[2017-05-07] MEDS ORDERED: 0.9 % Sodium Chloride 250 ML IVC PRN (11:58)
[2017-05-07] MEDS ORDERED: 0.9 % Sodium Chloride 1,000 ML PRIME SCH (12:00)
[2017-05-07] MEDS ORDERED: Heparin 1,000 UNITS/500 mL 500 ML ONE (13:25)
[2017-05-07] MEDS ORDERED: CeFAZolin Premix DUPLEX 2,000 MG/50 ML BAG IVPB ONE ×2 (14:08→14:30)
[2017-05-07] MEDS ORDERED: *HR* Heparin 5,000 UNIT/ML VIAL ONE (14:13)
[2017-05-07] MEDS ORDERED: 0.9 % Sodium Chloride 1,000 ML ONE (15:05)
[2017-05-07] MEDS ORDERED: *HR* Dextrose 50 % in Water (Syg) 50 ML SYRINGE ONE (16:01)
[2017-05-08] MEDS: Insulin LISPRO 300 UNITS/3 ML VIAL SQ SCH ×4 (00:16→13:32)
[2017-05-08] MEDS: *HR* Heparin 5,000 UNIT/ML VIAL SQ SCH (05:17)
[2017-05-08] MEDS ORDERED: 0.9 % Sodium Chloride 250 ML IVC PRN (08:03)
--- NOTE | 2017-05-08 08:03 | Nephrology Progress Note ---
Date of Encounter: 05/08/17 Time of Encounter: 08:02 - Assessment and Plan (1) KARI (acute kidney injury) Current Visit: No Status: Acute The patient will undergo dialysis today. He will continue outpatient dialysis following hospital discharge. (2) UTI (urinary tract infection) Current Visit: No Status: Chronic Qualifiers: Urinary tract infection type: acute cystitis Hematuria presence: without hematuria Qualified Code(s): N30.00 - Acute cystitis without hematuria Subjective Principal diagnosis: Sepsis, Asp PNA Interval history: The patient denies any new complaints. Ears tunnel dialysis catheter placed yesterday and dialysis was initiated. He is going to undergo dialysis again today. Objective - Vital Signs Vital signs: Vital Signs Temp Pulse Resp BP Pulse Ox 05/08/17 06:49 97.7 F 84 19 132/70 97 05/08/17 03:25 97.8 F 79 16 150/81 93 05/08/17 00:13 97.5 F L 67 18 178/93 95 05/07/17 20:37 90 05/07/17 19:47 97.6 F 16 121/67 90 05/07/17 18:35 97.6 F 17 158/70 05/07/17 18:25 100/49 05/07/17 18:10 113/56 05/07/17 17:55 109/63 05/07/17 17:40 108/57 05/07/17 17:25 107/56 05/07/17 17:10 112/58 05/07/17 16:55 136/76 05/07/17 16:40 131/74 05/07/17 16:25 97.6 F 15 155/78 05/07/17 15:50 97.7 F 67 16 159/75 97 05/07/17 14:13 56 25 162/77 100 05/07/17 13:45 58 22 148/68 100 05/07/17 11:04 97.7 F 63 15 167/73 100 Intake and Output 05/07/17 05/08/17 05/08/17 23:59 07:59 15:59 Intake Total 640 / 640 666 / 666 Output Total 2600 / 2600 0 / 0 Balance -1960 / -1960 666 / 666 Intake: Oral 0 / 0 Tube Feeding 626 / 626 Intake, Rinseback and Flushes 600 / 600 Free Water Intake Amount 40 / 40 40 / 40 Output: Urine 0 / 0 0 / 0 Total Dialysis (HD) Output 2600 / 2600 Other: Stool Size Large Stool Consistency loose soft Stool Color Brown Yellow # Bowel Movement Diapers 1 Weight 74.389 kg Blood Glucose* 156 399 Hemodialysis Net Fluid Removed 2000 (mL) Patient Weight 05/08/17 23:59 Weight 74.389 kg - General Appearance Exam: Patient appears alert and oriented. He is in no acute distress. He appears chronically ill. Lungs his breath sounds otherwise clear. Heart regular rate and rhythm. Abdomen is benign. PEG tube is present. There is some lower extremity swelling. There is a tunnel dialysis catheter in the right chest. - Lab 05/07/17 03:33 05/07/17 03:33 Most recent lab results ABG pH 7.32 pH Units (7.32-7.45) 04/30/17 04:42 ABG pCO2 46 mmHg (35-45) H 04/30/17 04:42 ABG pO2 148 mmHg (85-104) H 04/30/17 04:42 ABG HCO3 23 mEq/L (21-27) 04/30/17 04:42 ABG O2 Saturation 99 % (95-98) H 04/30/17 04:42 Calcium 7.6 mg/dL (8.6-10.3) L 05/07/17 03:33 Phosphorus 5.5 mg/dL (2.7-4.5) H 05/03/17 05:51 Magnesium 1.7 mg/dL (1.6-2.6) 05/03/17 05:51 Urine Creatinine 28 mg/dL 04/25/17 16:00 Urine Sodium 99.1 mEq/L 04/25/17 16:00 - VTE Documentation of Mechanical Device: Intermittent pneumatic compression device Consult Discharge Plan - Plan Referrals: Cecil Carter MD [Primary Care Provider] - (patient will follow up with [facility] pcp)
[2017-05-08] MEDS: Bumetanide 1 MG TABLET PO SCH (08:10)
[2017-05-08] MEDS: amLODIPine 5 MG TABLET PO SCH (08:11)
[2017-05-08] MEDS: Ferrous Sulfate Oral Soln 300 MG/5 ML UDC PO SCH (08:11)
[2017-05-08] MEDS: Pantoprazole 40 MG VIAL IVP SCH (08:11)
[2017-05-08] MEDS ORDERED: Darbepoetin 100 MCG/0.5 ML SYRINGE SQ SCH (08:15)
--- NOTE | 2017-05-08 09:13 | Internal Med Progress Note ---
Date of Encounter: 05/08/17 Time of Encounter: 09:10 - Assessment and plan (1) Respiratory failure with hypoxia Current Visit: Yes Status: Resolved Assessment and plan: stable. requiring 3L NC denies sob. Qualifiers: Chronicity: acute on chronic Qualified Code(s): J96.21 - Acute and chronic respiratory failure with hypoxia (2) Ousib-rl-tbteubu kidney injury Current Visit: Yes Status: Acute Assessment and plan: stable started HD strict I/OS Qualifiers: Acute renal failure type: unspecified Chronic kidney disease stage: stage 3 (moderate) Qualified Code(s): N17.9 - Acute kidney failure, unspecified; N18.3 - Chronic kidney disease, stage 3 (moderate); N18.3 - Chronic kidney disease, stage 3 (moderate) (3) Anemia Current Visit: Yes Status: Chronic Assessment and plan: stable will transfuse if hgb<7. no signs of bleeding on exam egd on 05/01 shows normal esophagus, normal stomach and duodenum. continue iron supplementation Qualifiers: Anemia type: due to chronic kidney disease Chronic kidney disease stage: stage 5, not on chronic dialysis Qualified Code(s): N18.5 - Chronic kidney disease, stage 5; D63.1 - Anemia in chronic kidney disease; D63.1 - Anemia in chronic kidney disease (4) C. difficile diarrhea Current Visit: Yes Status: Acute Assessment and plan: completed oral vancomycin treatment stools more formed (5) Diabetes Current Visit: Yes Status: Chronic Assessment and plan: controlled now hypoglycemic yesterday will be discharged on Levemir 5 units at night and he will log every 6 hours moderate sliding scale. continue tube feeds Qualifiers: Diabetes mellitus type: type 2 Diabetes mellitus shelter insulin use: with termite treater use Diabetes mellitus complication status: with hyperglycemia Qualified Code(s): E11.65 - Type 2 diabetes mellitus with hyperglycemia; Z79.4 - intermediate project manager (current) use of insulin; Z79.4 - shelter (current) use of insulin; Z79.4 - shelter (current) use of insulin; Z79.4 - shelter (current ) use of insulin (6) Protein calorie malnutrition Current Visit: Yes Status: Acute Assessment and plan: peg placed continue tube feeds. Qualifiers: Protein-calorie malnutrition severity: unspecified severity Qualified Code( s): E46 - Unspecified protein-calorie malnutrition (7) DVT prophylaxis Current Visit: Yes Status: Acute Assessment and plan: hep sq (8) UTI (urinary tract infection) Current Visit: Yes Status: Resolved Qualifiers: Urinary tract infection type: site unspecified Hematuria presence: with hematuria Qualified Code(s): N39.0 - Urinary tract infection, site not specified; R31.9 - Hematuria, unspecified; R31.9 - Hematuria, unspecified (9) MRSA pneumonia Current Visit: Yes Status: Resolved Qualifiers: Laterality: bilateral Lung location: unspecified part of lung Qualified Code(s): J15.212 - Pneumonia due to Methicillin resistant Staphylococcus aureus - Subjective Interval history: No acute events overnight. Patient discharge was held due to hypoglycemia after morning. This has not resolved. Patient had a right neck tunnel dialysis catheter placed yesterday. He will undergo dialysis today before discharge. - Constitutional Vitals: Temp Pulse Resp BP Pulse Ox 97.7 F 84 19 132/70 97 05/08/17 06:49 05/08/17 06:49 05/08/17 06:49 05/08/17 06:49 05/08/17 06:49 General appearance: Present: cachectic, A&O X 2, pleasant, no acute distress - Other Additional findings: General: pleasant without distress Heart: Regular rate and rhythm with no murmur Lungs: Clear to auscultation bilaterally Abdomen: Soft nontender, nondistended positive bowel sounds. Has feeding tube without surrounding erythema or discharge. Skin: warm and dry Extremities: 1+ pedal edema Neuro: alert and oriented x2 Vascular: Pedal and radial pulses 2 out of 4 Lines: Left neck tunneled HD catheter without signs of infection. Internal Medicine: Result - Labs CBC & Chem 7: 05/07/17 03:33 05/07/17 03:33 - ABG Interpretation ABG results: ABG ABG pH 7.32 pH Units (7.32-7.45) 04/30/17 04:42 ABG pCO2 46 mmHg (35-45) H 04/30/17 04:42 ABG pO2 148 mmHg (85-104) H 04/30/17 04:42 ABG O2 Saturation 99 % (95-98) H 04/30/17 04:42 PT/INR, D-dimer PT 12.9 Seconds (9.4-12.1) H 05/03/17 15:04 - Impressions Impressions Guidance Needle Placement Ultrasound 05/07/17 00:00 IMPRESSION: Successful ultrasound and fluoroscopy guided tunneled catheter placement . D/ / Christian Novak MD / Christian Novak MD Interpreting Provider: Christian Novak MD Insertion Tunneled Catheter 05/07/17 00:00 IMPRESSION: Successful ultrasound and fluoroscopy guided tunneled catheter placement . D/ / Christian Novak MD / Christian Novak MD Interpreting Provider: Christian Novak MD - VTE Documentation of Mechanical Device: Intermittent pneumatic compression device Consult Discharge Plan - Plan Referrals: Cecil Carter MD [Primary Care Provider] - (patient will follow up with f pcp) Prescriptions: Insulin LISPRO [Humalog] See Protocol SQ Q6HR #1 cartridge Insulin DETEMIR [Levemir] 5 unit SQ HS #1 mls
[2017-05-08 14:11] VITALS: BP 147/81
[2017-05-08] MEDS ORDERED: *HR* Propofol 500 MG/50 ML BOTTLE IVC ONE (15:55)
[2017-05-08] MEDS ORDERED: 0.9 % Sodium Chloride 10 ML PF VIAL IVP ONE (15:55)
== END 2017-05-08 15:56 | DRG 698 ==
LOC: EMEROO 09:58 → SUATTDRO 13:16 → ICNU 13:16 → UNDODISIN 04-15 02:30 → 3ANU 04-17 15:06 → ICNU 04-24 21:25 → 2ANU 05-02 16:02
PROVIDERS: ADMIT Internal Medicine Pulmonary Disease; ATTEND Internal Medicine
PROC: IRPERMA (2017-05-07 13:00)

== ENCOUNTER 2017-05-13 14:21 | Inpatient (IN) ==
[2017-05-13] MEDS ORDERED: Sodium Bicarbonate 50 MEQ/50 ML VIAL IVP ONE ×2 (14:27→14:36)
[2017-05-13] MEDS ORDERED: Ipratropium/Albuterol Neb 3 ML ONE (14:29)
[2017-05-13] MEDS ORDERED: Albuterol 2.5 MG/3 ML NEBULIZER IH ONE (14:29)
[2017-05-13] MEDS ORDERED: Insulin Human Regular 10 UNIT in 0.9 % Sodium Chloride 10 ML IV ONE (14:30)
[2017-05-13] MEDS ORDERED: Sodium Bicarbonate 50 MEQ/50 ML VIAL ONE (14:39)
[2017-05-13 14:43] LABS: ABG Base Excess -15 mEq/L (-2 to 3); ABG HCO3 19 mEq/L (21-27); ABG Oxygen Saturation 99 % (95-98); ABG PCO2 108 mmHg (35-45); ABG PH 6.85 pH Units (7.32-7.45); ABG PO2 238 mmHg (85-104); ABG TCO2 22 mEq/L (20-26)
--- NOTE | 2017-05-13 14:44 | Emergency Department Note ---
Disposition Clinical Impression: Cardiac arrest, Hyperglycemia, Metabolic acidosis Disposition: Admitted As Inpatient Condition: Critical Time of Disposition: 15:11 CPR HPI - General Chief Complaint: ED Cardiac Arrest/CPR Stated Complaint: full arrest Time Seen by Provider: 05/13/17 14:25 Source: EMS Mode of arrival: EMS Limitations: physical limitation Nursing Notes Reviewed: Yes Vital Signs Reviewed: Yes - History of Present Illness HPI Narrative: Patient was found by EMS unresponsive. He was apneic and pulseless with a brief period of pulseless electrical activity. He was intubated prehospital with 2 rounds of epinephrine administered. An intraosseous nail was placed. Patient was transported to the emergency department in critical condition. No other information could be obtained at the time of arrival but the patient did have a recent admission and is a known poorly controlled diabetic with a history of kidney disease Pt Complaint: found unresponsive Onset (ago): Just SUPERVISOR SEAMING Place: home AED Applied by Bystander/Liquid Loader: Yes Shock Advised: No Initial Findings in the Field: unresponsive ROSC in the Field: No Treatments Prior to Arrival: intubation, chest compressions, epinephrine mgs # - Related Data Home Medications Medication Instructions Recorded Confirmed Cyclosporine [Restasis] 1 drop BOTH EYES BID 11/28/16 04/14/17 Loratadine [Allergy Relief] 10 mg PO DAILY PRN 11/28/16 04/14/17 DULoxetine [Cymbalta] 30 mg PO DAILY 02/15/17 04/14/17 Amlodipine Besylate 10 mg PO DAILY 04/14/17 04/14/17 Erythromycin OPTH Oint 1 appl OP HS 04/14/17 04/14/17 Glucagon,Human Recombinant 1 mg IM Q30MIN PRN 04/14/17 04/14/17 [Glucagen] Mirtazapine [Remeron] 30 mg PO HS 04/14/17 04/14/17 Omeprazole [PriLOSEC] 40 mg PO BID 04/14/17 04/14/17 Polyvinyl Alcohol [Artificial 1 drop BOTH EYES TID 04/14/17 04/14/17 Tears] Previous Rx's Medication Instructions Recorded Sucralfate [Carafate] 1 gm PO TID #1 bottle 12/03/16 hydrALAZINE [HydrALAZINE] 25 mg PO Q8HR #90 tablet 03/29/17 Bumetanide [Bumex] 1 mg PO BIDDIURETIC tablet 05/07/17 Ferrous Sulfate Oral Soln 300 mg PO DAILY udc 05/07/17 Ipratropium/Albuterol Neb [Duoneb] 3 ml IH Q4HR PRN inhsol 05/07/17 Potassium Chloride 10 meq PO DAILY #0 tab.er.prt 05/07/17 Insulin DETEMIR [Levemir] 5 unit SQ HS #1 mls 05/08/17 Insulin LISPRO [Humalog] See Protocol SQ Q6HR #1 cartridge 05/08/17 Allergies Allergy/AdvReac Type Severity Reaction Status Date / Time aspirin Allergy Rash Verified 02/15/17 02:44 pseudoephedrine Allergy Rash Verified 02/15/17 02:44 [From Buck] morphine AdvReac See Verified 04/14/17 11:30 Comments Limitations: ROS unobtainable due to patients medical condition CPR PMH - Past Medical History Medical history: Reports: CVA, dementia, diabetes, hyperlipidemia, hypertension , renal disease, other Male Surgical history: Reports: hip replacement, orthopedic, other, other Psychiatric history: Reports: depression, prior suicide attempt - Social History Smoking Status: Never smoker Alcohol use: Reports: none Drug use: Reports: none Physical Exam - General Limitations: physical limitation General appearance: in distress - Head Head exam: atraumatic - Eye Eye exam: Present: other (Sluggish pupils. Left conjunctiva injected) - ENT ENT exam: normal exam, other (Endotracheal tube in place) - Neck Neck exam: Present: other (Right sided tunneled IJ dialysis catheter) - Chest Chest inspection: Present: normal inspection, symmetric chest wall rise ( Symmetric chest rise with bagging) - Respiratory Respiratory exam: Present: other (Diffusely coarse breath sounds with bagging) - Cardiovascular Cardiovascular exam: Present: other (Asystole) - Abdominal Exam Abdominal exam: Present: soft, other (feeding tube) - Extremities Exam Extremities exam: Present: other (Lower extremities slightly contracted and atrophied) - Neurological Exam Neurological exam: Present: other (GCS 2T) - Skin Skin exam: Present: pallor, other (Cool to touch) Course Course Narrative: Patient presents in full cardiac arrest. Given his history of diabetes and recent kidney failure I was concerned about etiologies of pulseless electrical activity including such as diabetic ketoacidosis and critical hyperkalemia. He was given sodium bicarbonate and calcium chloride through his intraosseous line with return of circulation. He had a pulse and a wide complex tachycardia without acute STEMI pattern. Bedside Accu-Chek read high which prompted administrating additional sodium bicarbonate and insulin. Triple-lumen central venous catheter placed by the resident physician under my supervision. - Reevaluation(s) Reevaluation #1: Resident physician unable to place a triple-lumen central venous catheter. Left -sided 18-gauge external jugular line placed by me Reevaluation #2: Dr. Minor accepts admission to ICU. Right femoral triple lumen catheter placed by the resident physician under my supervision Vital Signs Temperature 97.8 F 05/13/17 14:30 Pulse Rate 127 05/13/17 14:30 Respiratory Rate 0 05/13/17 14:30 Blood Pressure 188/101 05/13/17 14:30 O2 Sat by Pulse Oximetry 100 05/13/17 14:30 Temperature 97.8 F 05/13/17 14:30 Pulse Rate 76 05/13/17 15:24 Respiratory Rate 17 05/13/17 15:24 Blood Pressure 71/43 05/13/17 15:24 O2 Sat by Pulse Oximetry 100 05/13/17 15:24 Oxygen Delivery Oxygen Delivery Ventilator Procedures - Central Line Placement Left IJ Central Line Inserted*: Yes Central Line Catheter Replacement*: No Central Line Insertion: emergent Procedural Pause: verify patient name and date of , edwina and assess the site, assemble equipment and verify supplies, perform hand hygiene Patient Placed on Monitor/Pulse Ox: Yes During the Procedure: clinician is wearing sterile gloves, cap, mask,& gown during insertion, sterile field and sterile technique are maintained, patient's face is covered with drape or mask and wearing a cap, everyone in room is wearing a mask Central Line Prep: Chlorhexidine scrub Local Anesthetic: lidocaine 1% Central Line Lumen Inserted: triple Patient Tolerated Procedure: other (Unable to place) Right Femoral Central Line Inserted*: Yes Central Line Insertion: emergent Procedural Pause: verify patient name and date of , timeout performed per policy, edwina and assess the site, perform hand hygiene During the Procedure: clinician is wearing sterile gloves, cap, mask,& gown during insertion, sterile field and sterile technique are maintained, patient's face is covered with drape or mask and wearing a cap, everyone in room is wearing a mask Central Line Prep: Chlorhexidine scrub Local Anesthetic: lidocaine 1% Ultrasound Used for Placement: Yes Central Line Lumen Inserted: triple Post Procedure: sutured in place, good blood return, sterile dressing applied, guide wire removed and visualized Post Procedure X-Ray: tip of catheter in good position Patient Tolerated Procedure: no complications Cardiac Arrest/CPR - Medical Records Medical records reviewed: Yes I reviewed the patient's medical records. - Lab Data Lab results reviewed: Yes I reviewed the patient's lab results. Result diagrams: 05/13/17 14:26 Lab Results 05/13/17 05/13/17 05/13/17 Range/Units 14:26 14:26 14:27 PT 13.8 H (9.4-12.1) Seconds INR 1.3 APTT 134.3 H* (26.0-36.0) Seconds ABG pH (7.32-7.45) pH Units ABG pCO2 (35-45) mmHg ABG pO2 (85-104) mmHg ABG HCO3 (21-27) mEq/L ABG Total CO2 (20-26) mEq/L ABG O2 Saturation (95-98) % ABG Base Excess (-2 to 3) mEq/L O2 Delivery Device Inspired O2 (1-15=lpm [id number]=%) Sodium 139 (136-145) mEq/L Potassium 3.8 (3.5-5.1) mEq/L Chloride 99 (98-107) mEq/L Carbon Dioxide 18 L (23-29) mEq/L BUN 36 H (8-23) mg/dL Creatinine 2.90 H (0.70-1.30) mg/dL Est GFR ( Amer) 27 L (> 60) Est GFR (Non-Af Amer) 22 L (> 60) BUN/Creatinine Ratio 12 (6-26) Glucose 720 H* (70-105) mg/dL POC Glucose > 600 H* (58-89) Calculated Osmolality 331 H (280-300) Calcium 10.6 H (8.6-10.3) mg/dL Total Bilirubin 0.2 L (0.3-1.0) mg/dL Direct Bilirubin 0.1 (0.0-0.2) mg/dL Indirect Bilirubin 0.1 (0.0-1.2) mg/dL AST 360 H (13-39) Units/L ALT 94 H (7-52) Units/L Alkaline Phosphatase 300 H (34-104) Units/L Creatine Kinase 39 (30-223) Units/L Troponin I 0.11 H* (< 0.04) ng/mL Serum Total Protein 5.0 L (6.4-8.9) g/dL Albumin 1.9 L (3.5-5.7) g/dL Globulin 3.1 (2.4-3.5) g/dL Albumin/Globulin Ratio 0.6 L (1.1-2.2) Specimen Rejected 05/13/17 05/13/17 05/13/17 Range/Units 14:28 14:34 14:56 PT (9.4-12.1) Seconds INR APTT (26.0-36.0) Seconds ABG pH 6.85 L* (7.32-7.45) pH Units ABG pCO2 108 H* (35-45) mmHg ABG pO2 238 H (85-104) mmHg ABG HCO3 19 L (21-27) mEq/L ABG Total CO2 22 (20-26) mEq/L ABG O2 Saturation 99 H (95-98) % ABG Base Excess -15 L (-2 to 3) mEq/L O2 Delivery Device Bagging Inspired O2 100.0 (1-15=lpm [id number]=%) Sodium (136-145) mEq/L Potassium (3.5-5.1) mEq/L Chloride (98-107) mEq/L Carbon Dioxide (23-29) mEq/L BUN (8-23) mg/dL Creatinine (0.70-1.30) mg/dL Est GFR ( Amer) (> 60) Est GFR (Non-Af Amer) (> 60) BUN/Creatinine Ratio (6-26) Glucose (70-105) mg/dL POC Glucose > 600 H* (58-89) Calculated Osmolality (280-300) Calcium (8.6-10.3) mg/dL Total Bilirubin (0.3-1.0) mg/dL Direct Bilirubin (0.0-0.2) mg/dL Indirect Bilirubin (0.0-1.2) mg/dL AST (13-39) Units/L ALT (7-52) Units/L Alkaline Phosphatase (34-104) Units/L Creatine Kinase (30-223) Units/L Troponin I (< 0.04) ng/mL Serum Total Protein (6.4-8.9) g/dL Albumin (3.5-5.7) g/dL Globulin (2.4-3.5) g/dL Albumin/Globulin Ratio (1.1-2.2) Specimen Rejected MCV Delta - Radiology Data Radiology results reviewed: Yes I reviewed the patient's radiology results. - EKG Data EKG attestation: Yes I reviewed and interpreted this EKG. EKG results narrative: Irregular wide complex rhythm right bundle branch block rate 125 QRS 162 QT/QTC 323/397 study compared to previous dated 04/14/17 Critical Care Time Critical Care Time: Yes Total Critical Care Time: 45 Attestation: The high probability of a clinically significant, sudden or life threatening deterioration of the [] system(s) required my full and direct attention, intervention and personal management. The aggregate critical care time was [] minutes. This time is in addition to time spent performing reported procedures but includes the following: [] Data Review and interpretation [] Patient assessment and monitoring of vital signs [] Documentation [] Medication orders and management
[2017-05-13 14:57] LABS: INR 1.3; Prothrombin Time 13.8 Seconds (9.4-12.1)
[2017-05-13 15:10] LABS: Alanine Aminotransferase 94 Units/L (7-52); Albumin 1.9 g/dL (3.5-5.7); Albumin/Globulin Ratio 0.6 (1.1-2.2); Alkaline Phosphatase 300 Units/L (34-104); Aspartate Amino Transferase 360 Units/L (13-39); BUN/Creatinine Ratio 12 (6-26); Bilirubin,Direct 0.1 mg/dL (0.0-0.2); Bilirubin,Indirect 0.1 mg/dL (0.0-1.2); Bilirubin,Total 0.2 mg/dL (0.3-1.0); Blood Urea Nitrogen 36 mg/dL (8-23); Calcium 10.6 mg/dL (8.6-10.3); Carbon Dioxide 18 mEq/L (23-29); Chloride 99 mEq/L (98-107); Creatine Kinase 39 Units/L (30-223); Globulin 3.1 g/dL (2.4-3.5); Glucose 720 mg/dL (70-105); Osmolality,Calculated 331 (280-300); Potassium 3.8 mEq/L (3.5-5.1); Sodium 139 mEq/L (136-145); Troponin I 0.11 ng/mL (< 0.04); eGFR For African Americans 27 (> 60); eGFR For Non-African Americans 22 (> 60)
[2017-05-13] MEDS ORDERED: *HR* Dextrose 50 % in Water (Syg) 50 ML SYRINGE IVP PRN (15:11)
[2017-05-13] MEDS ORDERED: 0.9 % Sodium Chloride 1,000 ML IVC ONE (15:13)
[2017-05-13 15:15] LABS: Activated Partial Thrombo Time 134.3 Seconds (26.0-36.0)
[2017-05-13] MEDS ORDERED: Insulin Human Regular 100 UNIT in 0.9 % Sodium Chloride 100 ML IVC SCH (15:15)
[2017-05-13 15:22] LABS: Bilirubin,Urine Negative (Negative); Blood,Urine Moderate (Negative); Clarity,Urine Turbid (Clear); Color,Urine Yellow (Yellow); Glucose,Urine (UA) 500 mg/dL (Normal); Ketones,Urine Trace mg/dL (Negative); Leukocyte Esterase,Urine Large (Negative); Nitrite,Urine Negative (Negative); PH,Urine 6.5 pH Units (5.0-8.0); Protein,Urine >=300 mg/dL (Neg-Trace); Specific Gravity,Urine 1.026 (1.010-1.025); Urobilinogen,Urine Normal (Normal)
[2017-05-13 15:25] LABS: Bacteria,Urine None Seen per hpf (None-Few); RBC,Urine 15-30 per hpf (0-3); Squamous Epithelial Cell,Urine Many per lpf (None-Few); WBC,Urine TNTC per hpf (0-3)
[2017-05-13 15:26] LABS: ABG Base Excess -1 mEq/L (-2 to 3); ABG HCO3 26 mEq/L (21-27); ABG Oxygen Saturation 100 % (95-98); ABG PCO2 56 mmHg (35-45); ABG PH 7.28 pH Units (7.32-7.45); ABG PO2 228 mmHg (85-104); ABG TCO2 28 mEq/L (20-26); Blood Gas Modality ASSIST CONTROL; Blood Gas PEEP 5 cm H2O; Blood Gas Respiration Rate 15; Blood Gas VT 500 cc
[2017-05-13 15:30] LABS: Ethanol < 10 mg/dL (0-10)
[2017-05-13] MEDS ORDERED: Norepinephrine 4 MG in D5% in Water 250 ML IVC SCH (15:30)
[2017-05-13 15:31] LABS: Heparin anti-factor XA UFH 0.13 IU/mL (0.30-0.70)
[2017-05-13 15:46] LABS: Yeast,Urine Many per hpf (None Seen)
[2017-05-13] MEDS ORDERED: *HR* LORazepam 2 MG/ML VIAL IVP PRN (17:22)
[2017-05-13] MEDS ORDERED: *HR* FentaNYL (PF) 100 MCG/2 ML VIAL IVP PRN (17:22)
[2017-05-13 17:28] LABS: Hematocrit 22.4 % (37.5-50.1); Hemoglobin 6.6 g/dL (12.9-16.9); Mean Corpuscular HGB Conc 29.5 g/dL (31.6-35.5); Mean Corpuscular Hemoglobin 28.6 pg (28.0-33.3); Mean Platelet Volume 10.6 fL (9.4-12.4); Nucleated Red Blood Cells 1.9 /100 WBC (0); Platelet Count 239 K/mcL (140-400); Red Blood Count 2.31 M/mcL (4.19-5.50); Red Cell Distribution Width 17.6 % (11.5-14.5)
[2017-05-13] MEDS ORDERED: Naloxone 0.4 MG/ML INJ IVP PRN (17:40)
--- NOTE | 2017-05-13 17:44 | Internal Med History&Physical ---
Date of Encounter: 05/13/17 Time of Encounter: 17:37 Assessment and Plan (1) Cardiac arrest Current visit: Yes Status: Acute Likely due to severe metabolic and respiratory acidosis. Status post ACLS and 2 mg of epinephrine. May also be having underlying coronary event due to presence of ST segment elevation on EKG. Poor prognosis. (2) Acute respiratory failure with hypoxia and hypercapnia Current visit: Yes Status: Acute Patient presenting with acute respiratory failure with hypoxia and hypercapnia following PEA cardiac arrest. Intubated and mechanically ventilated. Continue current vent management settings. Respiratory acidosis is improving since the patient has been on the vent. PH is now 7.28. (3) ST elevation [place] (STEMI) Current visit: Yes Status: Suspected Patient's EKG appears to show ST elevation [place] involving the anteroseptal leads. I discussed the plan of care with patient's family including his son who is the power of district attorney. Given the overall poor prognosis due to his multiple acute issues including septic shock, severe diabetic ketoacidosis and lactic acidosis with acute respiratory failure, the have decided to consider withdrawing care and would like to make patient DNR comfort care. As such we will manage the patient conservatively. He is at high risk for sudden clinical deterioration and . Critical care time: 40 minutes Qualifiers: Involved coronary artery: unspecified coronary artery Qualified Code(s): I21.3 - ST elevation (STEMI) myocardial infarction of unspecified site (4) Septic shock Current visit: Yes Status: Acute Patient with septic shock most likely from pneumonia or C. difficile. We will check stool for C. difficile. Start IV antibiotics. Follow blood cultures. Vasopressors to support blood pressure and keep map greater than 60. High risk for complications. (5) Anemia Current visit: Yes Status: Chronic Acute on chronic anemia. Hemoglobin is 6.6. Given patient's current CODE STATUS and family wishes, will hold off on transfusion. Qualifiers: Anemia type: due to chronic kidney disease Chronic kidney disease stage: stage 5, not on chronic dialysis Qualified Code(s): N18.5 - Chronic kidney disease, stage 5; D63.1 - Anemia in chronic kidney disease; D63.1 - Anemia in chronic kidney disease (6) Counseling regarding advanced care planning and goals of care Current visit: Yes Status: Acute Discussed plan of care with patient's family and son who is the power of district attorney. Given his poor overall prognosis, he will be made DNR comfort care at this time. (7) DKA (diabetic ketoacidoses) Current visit: Yes Status: Acute Patient presenting with DKA. Severe. Started on IV insulin but patient has multiorgan dysfunction and shock. Poor overall prognosis. We will manage according to family wishes. 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 Internal Medicine - H&P: HPI Chief complaint: Cardiac arrest Admitted From: Emergency Dept Plans for Post Hospital Care: Home History of present illness: Mr. Neal is a 62 year old male patient with history of diabetes, hypertension, hyperlipidemia, end-stage renal disease now on hemodialysis, with prior episodes of diabetic ketoacidosis who was discharged from the hospital 4 days back following a prolonged stay here during which time he was started on hemodialysis and also had developed MRSA pneumonia and C. difficile diarrhea presented to the ER after EMS was called because patient was found to be unresponsive. He was apparently apneic and pulseless with a brief period of pulseless electrical activity. He was given 2 rounds of epinephrine and after CPR and intubation and was transferred to the ED here. In the ER, he was found to be in severe diabetic ketoacidosis with a pH of 6.85. His lactic acid is greater than 10. When I was in the ICU, patient suddenly went into ventricular bigeminy and then appeared to have ST segment elevation changes on telemetry. An EKG was done and it does show acute ST segment elevation in the anteroseptal leads. Patient has also been in shock and has been started on norepinephrine. Past Med Surg Social Fam HX - Past Medical History Source: old records reviewed Medical history: CVA, dementia, diabetes, hyperlipidemia, hypertension, renal disease, other Psychiatric history: depression, prior suicide attempt - Past Surgical History Surgical History: hip replacement, orthopedic, other, other - Social History Smoking Status: Never smoker Smokeless Tobacco Status: No Alcohol use: none Drug use: none - Family History Mother Living Status: Still Living Hx Family Cardiac Disorders: Yes (A-fib s/p pacemaker) Hx Family Endocrine Disorder: Yes (DM) Father Living Status: Hx Family Cardiac Disorders: Yes (heart disease) Hx Family Respiratory Disorders: No Hx Family Cancer: No Hx Family GI Disorders: No Hx Family Endocrine Disorder: No Hx Family Neuromuscular Disorders: No Hx Family Neurologic Disorders: No Hx Family HEENT Disorders: No Hx Family Autoimmune Disorders: No Brother Living Status: Hx Family Cardiac Disorders: Yes ([place]) Hx Family Endocrine Disorder: Yes (DM) Internal Medicine - H&P: Meds Cyclosporine [Restasis] 1 drop BOTH EYES BID 11/28/16 [History] Loratadine [Allergy Relief] 10 mg PO DAILY PRN 11/28/16 [History] Sucralfate [Carafate] 1 gm PO TID #1 bottle 12/03/16 [Rx] DULoxetine [Cymbalta] 30 mg PO DAILY 02/15/17 [History] hydrALAZINE [HydrALAZINE] 25 mg PO Q8HR #90 tablet 03/29/17 [Rx] Amlodipine Besylate 10 mg PO DAILY 04/14/17 [History] Erythromycin OPTH Oint 1 appl OP HS 04/14/17 [History] Glucagon,Human Recombinant [Glucagen] 1 mg IM Q30MIN PRN 04/14/17 [History] Mirtazapine [Remeron] 30 mg PO HS 04/14/17 [History] Omeprazole [PriLOSEC] 40 mg PO BID 04/14/17 [History] Polyvinyl Alcohol [Artificial Tears] 1 drop BOTH EYES TID 04/14/17 [History] Bumetanide [Bumex] 1 mg PO BIDDIURETIC tablet 05/07/17 [Rx] Ferrous Sulfate Oral Soln 300 mg PO DAILY udc 05/07/17 [Rx] Ipratropium/Albuterol Neb [Duoneb] 3 ml IH Q4HR PRN inhsol 05/07/17 [Rx] Potassium Chloride 10 meq PO DAILY #0 tab.er.prt 05/07/17 [Rx] Insulin DETEMIR [Levemir] 5 unit SQ HS #1 mls 05/08/17 [Rx] Insulin LISPRO [Humalog] See Protocol SQ Q6HR #1 cartridge 05/08/17 [Rx] 3 Allergy/AdvReac Type Severity Reaction Status Date / Time aspirin Allergy Rash Verified 02/15/17 02:44 pseudoephedrine Allergy Rash Verified 02/15/17 02:44 [From Sudafed] morphine AdvReac See Verified 04/14/17 11:30 Comments ROS unobtainable: due to endotracheal tube, due to mental status All Systems PM: A 10-system review of systems was performed and is negative for pertinent findings except as documented above in the HPI. - Constitutional Vitals: Temp Pulse Resp BP Pulse Ox 98.2 F 79 18 81/52 90 05/13/17 16:35 05/13/17 17:00 05/13/17 17:00 05/13/17 17:00 05/13/17 17:00 General appearance: Absent: A&O X 0 Exam: Intubated nonresponsive - Respiratory Respiratory exam: Present: prolonged expiratory phase. Absent: accessory muscle use, rales, rhonchi, wheezes Additional comments: Coarse breath sounds bilaterally - Cardiovascular Cardiovascular exam: Present: RRR, +S1, +S2. Absent: diastolic murmur, gallop, rubs, systolic murmur - GI/Abdominal GI/Abdominal exam: Present: normal bowel sounds, soft, no peritoneal signs. Absent: distended, tenderness - Extremities Exam Extremities exam: Absent: calf tenderness, cyanotic, pedal edema Additional comments: Poor pulses - Neurological Exam Neurological exam: Present: altered, no focal deficits. Absent: facial droop, speech deficit - Skin Skin exam: Present: dry, intact, pallor Additional comments: Patient appears very pale Internal Med - H&P Results - Labs CBC & Chem 7: 05/13/17 17:10 05/13/17 14:26 Labs: Short CBC 05/13/17 Range/Units 17:10 WBC 11.7 H D (4.3-11.1) K/mcL Hgb 6.6 L (12.9-16.9) g/dL Hct 22.4 L (37.5-50.1) % Plt Count 239 (140-400) K/mcL - ABG Interpretation ABG results: 05/13/17 15:18 ABG pH 7.28 L D ABG pCO2 56 H D ABG pO2 228 H ABG HCO3 26 ABG Total CO2 28 H ABG O2 Saturation 100 H ABG Base Excess -1 - EKG Data -: EKG Interpreted by Myself EKG shows normal: ST-T waves (ST segment elevation noted in the anteroseptal leads) - EKG Data Interpretation IM: suggestive of ischemia - Impressions Impressions Chest X-Ray 05/13/17 14:26 IMPRESSION: Endotracheal tube tip projects 3 cm above the level of the mane. Bilateral patchy airspace opacities have mildly improved since the prior examination. D/ / 05/13/2017 14:57:19 Marichuy Burk MD / ravi Interpreting Provider: Marichuy Burk MD Head CT 05/13/17 14:26 IMPRESSION: No acute intracranial abnormality. Remote lacunar stroke bilateral thalamus. Chronic versus recurrent partially opacified mastoid air cells bilateral can be seen with acute or chronic infectious or inflammatory processes. D/ / Robbie Garcia / Robbie Garcia Interpreting Provider: Robbie Garcia Chest X-Ray 05/13/17 15:09 IMPRESSION: Appropriate positioning of enteric tube. Perihilar and ground-glass opacities centrally without significant change from prior imaging. D/ / Alberto Walker MD / Alberto Walker MD Interpreting Provider: Alberto Walker MD
[2017-05-13 17:53] LABS: INR 1.4; Prothrombin Time 15.1 Seconds (9.4-12.1)
[2017-05-13 18:00] LABS: Magnesium 1.9 mg/dL (1.6-2.6); Potassium 3.1 mEq/L (3.5-5.1); Troponin I 0.17 ng/mL (< 0.04)
[2017-05-13] MEDS ORDERED: Piperacillin/Tazobactam 3.375 GM in 0.9 % Sodium Chloride Mini Bag 100 ML IVPB SCH (18:10)
[2017-05-13 18:11] LABS: Lymphocytes # 0.9 K/mcL (0.6-4.6); Monocytes # 0.7 K/mcL (0.0-1.3); Neutrophils # 10.1 K/mcL (1.6-8.9); Platelet Estimate Normal (Normal)
[2017-05-13] MEDS ORDERED: 0.9 % Sodium Chloride 1,000 ML IVC SCH (18:15)
--- NOTE | 2017-05-13 18:36 | Event Note ---
Date of Encounter: 05/13/17 Time of Encounter: 15:59 I have assisted in the care of this patient as I saw this patient in the emergency department after he was brought in by EMS from an ECF after being found unresponsive. Patient was resuscitated by the emergency department team which brought back ROSC. Patient was reported to have been in PEA. Patient is a known diabetic who was recently hospitalized in the intensive care unit. There was concern for diabetic ketoacidosis as patient was severely acidotic and hyperglycemic. Patient had a lactic acid greater than 10. Patient had a glucose reading that was over 800. Patient was intubated at time I saw him with Levophed running at 2.5 mics per minute. Patient was also receiving fluids as well. Electrocardiogram initially showed a new right bundle branch block with some septal and lateral ST depressions. On physical exam, patient was in 62-year-old male who was very frail appearing with a ET tube placed. Patient's pupils were nonreactive to light. Patient was nonresponsive even though he was not sedated. Lungs reveal diffuse rhonchi throughout. Abdomen was soft and there were no palpable masses. Patient had poor capillary refill. Skin was tented. Chest x-ray revealed perihilar and groundglass opacities. Head CT did not reveal any hemorrhage, however, there was remote lacunar stroke bilaterally of the thalamus. After I assisted in escorting the patient to the ICU for continued stabilization , I went and spoke with the son, son's , and ex- for the patient. The son stated that he was medical power of insurance defense attorney. He has been making decisions for the patient and previous hospitalizations. I discussed with them the findings of my physical exam, the patient's diabetic ketoacidosis, elevated lactic acid, chest x-ray, EKG changes, and how severe and critical the patient was. The son stated that his father would not want to suffer and that he would consider withdrawal of care as that his father had mentioned that he was done fighting in the previous months. Upon arrival back to the intensive care unit, repeat EKG revealed possible anteroseptal ST segment elevations. Urinalysis revealed a leukocyte esterase. Hepatic transaminases were also elevated indicating acute liver failure. Patient has known C. difficile and was having uncontrolled episodes of diarrhea in the bed. The updates were discussed with son and he elected to withdraw care at that time. All family members in the room were in agreement. He also voiced this decision to the attending. Care was to be withdrawn once more family became available. Head CT 05/13/17 14:26 IMPRESSION: No acute intracranial abnormality. Remote lacunar stroke bilateral thalamus. Chronic versus recurrent partially opacified mastoid air cells bilateral can be seen with acute or chronic infectious or inflammatory processes. D/ / Robbie Garcia / Robbie Garcia Interpreting Provider: Robbie Garcia Chest X-Ray 05/13/17 15:09 IMPRESSION: Appropriate positioning of enteric tube. Perihilar and ground-glass opacities centrally without significant change from prior imaging. D/ / Alberto Walker MD / Alberto Walker MD Interpreting Provider: Alberto Walker MD
[2017-05-13 19:44] VITALS: BP 71/46
--- NOTE | 2017-05-13 20:22 | Event Note ---
Date of Encounter: 05/13/17 Time of Encounter: 20:00 I introduced myself to the family. The mother, brother, son and daughter-in- law were present in the room. In the presence of 2 other RNs and RT, confirmed with family and son who is the power of document review attorney that it is okay to terminally extubate the patient as they have agreed to make him DNR comfort care. The procedure was explained to the family and the family is in agreement with this plan. No further questions. At 20:06, patient was extubated. Levophed was turned off at 20:09 and monitors off. I offered my condolences and stepped out of the room, family has no further questions.
--- NOTE | 2017-05-13 20:51 | Death Note ---
Pronouncement Note - Date and Time of Date of : 05/13/17 Time of : 20:18 - PCOD Preliminary cause of : Cardiac arrest - Summary Additional details: Patient compassionately extubated at 2006 after agreement with family including son who is power of ip attorney. Cessation of spontaneous respirations or palpable pulse. Time of 2018. - Additional Data Confirmation of : no pulse Family: at bedside Attending/PCP notified?: Yes Attending physician: Katarzyna Minor MD Was code activated?: No accident examiner notified?: Yes (RN on phone with online trader) Advance directives: Yes
--- NOTE | 2017-05-13 20:54 | Death Note ---
Discharge Sum: Summary - Date and Time Date of admission: 05/13/17 15:17 Date of : 05/13/17 Time of : 20:18 - Summary Details: Patient compassionately extubated at 2006 after agreement with family including son who is power of attorney recruiter for withdrawal of care. Time of 2018. Certificate to be assigned to primary care physician Dr. Carter or admitting physician Dr. Minor. - Additional Data Confirmation of as documented by pronouncing clinician: no pulse, no respirations, no heart sounds, pupils fixed and dilated, other (cyanotic) Family: at bedside Attending/PCP notified?: Yes (Dr. Clover Castillo) Attending physician: Katarzyna Minor MD Was code activated?: No cloth examiner machine notified?: Yes (RN speaking with lamination machine operator) Hospice patient?: No Discharge Sum: Diag - PCOD Probable Cause of : Cardiac arrest Discharge Sum: Prov - Provider Primary care physician: Cecil Carter MD Admitting clinician: Katarzyna Minor Attending physician on admission: Katarzyna Minor Consults: 05/13/17 17:50 Consult to Nutrition [CONS] Routine Comment: Consulting Provider: NUTRITION Reason for Dietary Consult: Tube Feed Start & Manage Pronouncing clinician: Michael Castaneda (Attending is Dr. Castillo)
[2017-05-13] MEDS ORDERED: *HR* EPINEPHrine 1 MG/10 ML SYRINGE IVP ONE (21:17)
--- NOTE | 2017-05-15 07:34 | Electrocardiograph Report ---
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
--- NOTE | 2017-05-15 19:36 | Electrocardiograph Report ---
[place] [address] Test Date: 2017-05-13 Pat Name: Enoc Neal Department: 109 Room: 07 Gender: M Signals Intelligence Analyst: : [id number] Requested By: Katarzyna Minor Order Number: [id number] Reading MD: Sage Nickerson MD Measurements Intervals [place] Rate: 89 P: 40 [place]: 180 QRS: 39 QRSD: 103 T: 82 QT: 432 QTc: 479 Interpretive Statements SINUS RHYTHM WITH FREQUENT VENTRICULAR PREMATURE COMPLEXES IN A BIGEMINAL PATTERN PROLONGED QT INTERVAL Electronically Signed On 05-15-2017 19:34:51 EDT by Sage Nickerson MD
== END 2017-05-13 21:18 | disposition expired | DRG 871 ==
LOC: EMEROO 14:21 → ICNU 15:17
PROVIDERS: ADMIT Internal Medicine; ATTEND Internal Medicine